=== PATIENT | female | born 1945 | race African-American/Black ===

== ENCOUNTER 2023-11-23 19:57 | Inpatient (IN) | payer MEDICARE, SELFPAY ==
[2023-11-20] VITALS (11 sets, daily range): BP systolic 127–154; BP diastolic 62–96; BMI 25.4
--- NOTE | 2023-11-20 07:30 | ED.GENMED ---
History of Present Illness
<ANNALISA Babb Jr. Last Filed: 11/20/23 12:25>
General
Chief Complaint: Blood Sugar Problem
Source: patient and family
Exam Limitations: none
Time Seen by Provider: 11/20/23 07:04
Nursing documentation reviewed up to this point in time: agreed with
History of Present Illness
History of Present Illness:
78-year-old female with past medical history of heart disease, 7 stents, CHF hypertension diabetes presenting to the emergency department today with concerns of generalized weakness fatigue worsening over the past few days. Recently was admitted to
[facility] diagnosed with heart failure and was intubated at the time in the ICU. Was discharged 4 days ago. She denies any specific chest pain palpitations nausea vomiting or fevers.
Review of Systems
<Judson Segovia Jr., PA-C - Last Filed: 11/20/23 12:25>
Review of Systems
Allergies reviewed?: Yes
All Other Systems: ROS reviewed and negative except as documented in HPI and ROS
Phy Exam
<ANNALISA Babb Jr. Last Filed: 11/20/23 12:25>
Physical Exam
Physical Exam:
GENERAL: Alert , in no apparent distress
EYE: pupils equal and reactive
NECK: Supple, no significant adenopathy.
ENT: o/p clr, mmm.
CARDIAC: Regular rate and rhythm .
LUNGS: Clear breath sounds bilaterally, no acute respiratory distress, no wheezes/rales/rhonchi
ABDOMEN: Soft, without focal tenderness, no r/g, no cvat
NEUROLOGICAL: Alert and oriented, no focal neuro deficits
SKIN: Warm and dry, skin intact.
MUSCULOSKELETAL: No edema, well perfused.
PSYCH: Normal and appropriate interaction.
Course
<ANNALISA Babb Jr. Last Filed: 11/20/23 12:25>
Orders/Labs/Results
Orders:
Orders
11/20/23 07:17
Chest [CR Chest - 2 Views ] Urgent
Comment:
Reason For Exam: weakness recent pericardial effusion
11/20/23 07:18
Urinalysis Reflex To Culture Urgent
11/20/23 07:36
B-Hydroxybutyrate Urgent
CMP [Comprehensive Metabolic Panel] Urgent
Complete Blood Count/With Diff Urgent
Magnesium Urgent
Pro-BNP [NT-proBNP] Urgent
TSH Reflex To Free T4 Urgent
Troponin I Urgent
Venous Blood Gas Urgent
%Oxygen/Room Air: 99
11/20/23 08:41
EKG [Electrocardiogram (*1)] Urgent
Reason for Study: Fatigue / Weakness
EKG- Treatment ONCE
11/20/23 10:05
Cefepime HCl [Maxipime] 2,000 mg IV NOW STA
11/20/23 10:09
Vancomycin [Vancocin] 1,500 mg 0.9% Sodium Chloride [Nss] 20 ml 0.9% Sodium Chloride 250 ml [Nss] 250 ml IV NOW
11/20/23 10:52
Obtain Records As Directed
Dates of Information to be Released: recent admission to [facility]
Type of Information Requested: Entire Record
11/20/23 12:09
Admit/Transfer Patient As Directed
Co-Sign Provider:
Level of Care: Observation services
Assign to:: Telemetry
Physician / Group: Hospitalist
Diagnosis: Weakness
Reason for Telemetry: Arrhythmia
Date to Stop Telemetry: 11/23/23
Time to Stop Telemetry: 11:00
PRN Pain Medication Management As Directed
May give lesser potent ordered pain med per pt: No
preference::
Protocol:: Medication orders for pain may NOT be administered in
a manner that defers to patient preference. Follow
all order instructions as written.
Contact provider if ordering parameters for pain need
to be adjusted.
11/20/23 12:10
Code Status As Directed
Resuscitation Status: Full Code
11/23/23 11:00
DC Protocol for Telemetry ONCE
Abnormal Lab Results
11/20/23
07:36
RBC 3.48 L 10^6/uL
(4.20-5.40)
Hgb 9.5 L g/dL
(12.0-16.0)
Hct 28.2 L %
(37.0-47.0)
RDW 14.7 H %
(11.5-14.5)
VBG pH 7.46 H
(7.32-7.43)
VBG pO2 160 H mmHg
(30-50)
Potassium 5.2 H mmol/L
(3.5-5.1)
BUN 75 H mg/dl
(7-17)
Creatinine 2.9 H mg/dL
(0.6-1.0)
Glucose 134 H mg/dl
(70-99)
AST 46 H U/L
(14-36)
ALT 43 H U/L
(0-35)
Troponin I 0.087 H* ng/ml
11/20/23 07:36
11/20/23 07:36
Vital Signs
Initial and Last Documented VS:
Initial Vital Signs
Temp Pulse Resp BP Pulse Ox
98.3 F 69 16 136/73 97
11/20/23 06:21 11/20/23 06:21 11/20/23 06:21 11/20/23 06:21 11/20/23 06:21
Last Documented Vital Signs
Temp Pulse Resp BP Pulse Ox
98.3 F 64 20 146/68 98
11/20/23 06:21 11/20/23 12:00 11/20/23 12:00 11/20/23 12:00 11/20/23 12:00
<Saadia Dillard MD - Last Filed: 11/20/23 09:51>
Orders/Labs/Results
Orders:
Orders
11/20/23 07:17
Chest [CR Chest - 2 Views ] Urgent
Comment:
Reason For Exam: weakness recent pericardial effusion
11/20/23 07:18
Urinalysis Reflex To Culture Urgent
11/20/23 07:36
B-Hydroxybutyrate Urgent
CMP [Comprehensive Metabolic Panel] Urgent
Complete Blood Count/With Diff Urgent
Magnesium Urgent
Pro-BNP [NT-proBNP] Urgent
TSH Reflex To Free T4 Urgent
Troponin I Urgent
Venous Blood Gas Urgent
%Oxygen/Room Air: 99
11/20/23 08:41
EKG [Electrocardiogram (*1)] Urgent
Reason for Study: Fatigue / Weakness
EKG- Treatment ONCE
11/20/23 10:05
Cefepime HCl [Maxipime] 2,000 mg IV NOW STA
11/20/23 10:09
Vancomycin [Vancocin] 1,500 mg 0.9% Sodium Chloride [Nss] 20 ml 0.9% Sodium Chloride 250 ml [Nss] 250 ml IV NOW
11/20/23 10:52
Obtain Records As Directed
Dates of Information to be Released: recent admission to [facility]
Type of Information Requested: Entire Record
11/20/23 12:09
Admit/Transfer Patient As Directed
Co-Sign Provider:
Level of Care: Observation services
Assign to:: Telemetry
Physician / Group: Hospitalist
Diagnosis: Weakness
Reason for Telemetry: Arrhythmia
Date to Stop Telemetry: 11/23/23
Time to Stop Telemetry: 11:00
PRN Pain Medication Management As Directed
May give lesser potent ordered pain med per pt: No
preference::
Protocol:: Medication orders for pain may NOT be administered in
a manner that defers to patient preference. Follow
all order instructions as written.
Contact provider if ordering parameters for pain need
to be adjusted.
11/20/23 12:10
Code Status As Directed
Resuscitation Status: Full Code
11/23/23 11:00
DC Protocol for Telemetry ONCE
Abnormal Lab Results
11/20/23
07:36
RBC 3.48 L 10^6/uL
(4.20-5.40)
Hgb 9.5 L g/dL
(12.0-16.0)
Hct 28.2 L %
(37.0-47.0)
RDW 14.7 H %
(11.5-14.5)
VBG pH 7.46 H
(7.32-7.43)
VBG pO2 160 H mmHg
(30-50)
Potassium 5.2 H mmol/L
(3.5-5.1)
BUN 75 H mg/dl
(7-17)
Creatinine 2.9 H mg/dL
(0.6-1.0)
Glucose 134 H mg/dl
(70-99)
AST 46 H U/L
(14-36)
ALT 43 H U/L
(0-35)
Troponin I 0.087 H* ng/ml
11/20/23 07:36
11/20/23 07:36
Vital Signs
Initial and Last Documented VS:
Initial Vital Signs
Temp Pulse Resp BP Pulse Ox
98.3 F 69 16 136/73 97
11/20/23 06:21 11/20/23 06:21 11/20/23 06:21 11/20/23 06:21 11/20/23 06:21
Last Documented Vital Signs
Temp Pulse Resp BP Pulse Ox
98.3 F 64 20 146/68 98
11/20/23 06:21 11/20/23 12:00 11/20/23 12:00 11/20/23 12:00 11/20/23 12:00
<Judson Segovia Jr., PA-C - Last Filed: 11/20/23 12:25>
MDM/Problems Addressed
MDM/Problems Addressed:
78-year-old female presenting to the emergency department with concerns of generalized weakness fatigue over the past few days. Recently discharged [facility] where she was previously in the ICU for heart failure exacerbation had improving
symptoms throughout the hospital stay and discharged 4 days ago. Upon arrival here vital signs are normal patient in no obvious distress labs show elevated creatinine level of 2.9 and BUN of 75 potassium of 5.2 normal glucose mild elevation of
troponin and BNP. Chest x-ray showing potential pulmonary edema to the right lower lobe potentially consistent with pneumonia. [facility] is able to be contacted we spoke with one of the ER providers they claim that her baseline creatinine
levels were in the mid ones typically. She did have an elevated troponin during her stay and it was trending down prior to discharge. They did treat her for possible pneumonia while there but took her off the antibiotics prior to discharge.
Patient's creatinine was reported to be in the mid ones at arrival to [facility] here the creatinine is 2.9 concerning for KELLIE as well as the elevated BUN of 75. Additionally the patient's troponin level here is mildly elevated to 0.087 the
level was elevated throughout hospital stay at [facility] as well. Chest x-ray here showing possible pneumonia to the right lung considering she was recently on a ventilator we will start her on IV antibiotics covering for this possibility. Plan to
admit for further treatment and monitoring.
<Judson Segovia Jr., PA-C - Last Filed: 11/20/23 12:25>
*Critical Care Note
Total Time (30-74mins, 75-104mins- exclusive of procedures): Not Applicable
ED Attending Note
<Judson Segovia Jr., PA-C - Last Filed: 11/20/23 12:25>
-
Portions of this chart may have been created with voice recognition software.� Occasional wrong word or��sound alike� substitutions may have occurred due to the inherent limitations of voice recognition software.
<Saadia Dillard MD - Last Filed: 11/20/23 09:51>
ED Attending Note
Patient seen and examined by attending physician: Yes
I performed the substantive portion of visit, reviewed & personally made and approve the management plan that is documented in note by myself or CIERRA.: Yes
ED Attending Note:
Patient appears well and comfortable. She has no complaints of physical pain. Patient just complains of severe fatigue. Patient's labs suggest acute on chronic renal failure. Chest x-rays suggest possible pneumonia, however, patient denies any
current fever or active cough.
Discharge Plan
Departure
Patient Disposition: Admit
Date of Disposition: 11/20/23
Time of Disposition: 10:11
Admit to: Telemetry
Admit to doctor: Maryan
Presentation/result/management discussed w/ accepting MD/DO: Hospitalist
Patient with high blood pressure during this ER visit?: No
Condition: Good
Covid-19: Not Applicable
Discharge Problem:
Pneumonia, KELLIE (acute kidney injury)
Prescriptions:
No Action
nifedipine 30 mg Tablet Extended Release 24hr
30 mg PO HS
carvedilol 12.5 mg Tablet
12.5 mg PO BID
clopidogrel 75 mg Tablet
75 mg PO DAILY
aspirin 81 mg Tablet,Delayed Release (Dr/Ec)
81 mg PO DAILY
acetaminophen [Tylenol Extra Strength] 500 mg Tablet
1,000 mg PO Q6HPRN PRN (Reason: mild pain)
isosorbide mononitrate 60 mg Tablet Extended Release 24 Hr
60 mg PO DAILY
lisinopril 40 mg Tablet
40 mg PO DAILY
metformin 500 mg Tablet Extended Release 24 Hr
1,000 mg PO .SEE BELOW
Patient Comments:
11/20/23: patient had metformin discontinued at their last hospital visit. Family gave patient metformin yesterday(11/19/23) around 1700 and 2300 due to blood sugar levels
rosuvastatin 10 mg Tablet
10 mg PO DAILY
ranolazine 500 mg Tablet Extended Release 12 Hr
1,000 mg PO BID
Referrals:
Anne Marie Choi DO [Family Provider] -
Interventions
Interventions:
*Risk Screen - Suicide Last Done: 11/20/23 06:21
*General Assessment Last Done: 11/20/23 07:44
*Neglect/Abuse Screening Last Done: 11/20/23 06:21
ED- Fall Risk Assessment Last Done: 11/20/23 07:41
*ED COVID-19 Vaccine History Last Done: 11/20/23 07:44
ED- Neurological Assessment Last Done: 11/20/23 07:41
Discharge Date and Time
Print Language: WOLOF
[2023-11-20 07:52] LABS: Venous Blood Gas B.E. 2.4 mmol/L (-4 to +4); Venous Blood Gas HCO3 26.3 mmol/L (22-27); Venous Blood Gas O2 Sat % 99.7 %; Venous Blood Gas pCO2 37 mmHg (35-48); Venous Blood Gas pH 7.46 (7.32-7.43); Venous Blood Gas pO2 160 mmHg (30-50)
[2023-11-20 07:54] LABS: Venous Blood Gas O2 Therapy 99
[2023-11-20 08:00] LABS: % Basophils 0.8 % (0-2); % Eosinophils 4.2 % (0-6); % Immature Granulocytes 0.4 % (0-0.5); % Lymphocytes 31.1 % (20.5-51.1); % Monocytes 6.6 % (1.7-9.3); % Neutrophils 56.9 % (42.2-75.2); Absolute Basophils 0.1 10^3/uL (0-0.2); Absolute Eosinophils 0.4 10^3/uL (0-0.7); Absolute Lymphocytes 2.8 10^3/uL (1.2-3.4); Absolute Monocytes 0.6 10^3/uL (0.1-0.6); Absolute Neutrophils 5.2 10^3/uL (1.4-6.5); Hematocrit 28.2 % (37.0-47.0); Hemoglobin 9.5 g/dL (12.0-16.0); Mean Corp Hgb Conc. 33.7 g/dL (33.0-37.0); Mean Corpuscular Hgb 27.3 pg (27.0-31.0); Mean Platelet Volume 9.6 fL (7.4-10.4); Nucleated Red Blood Cells % 0 %; Platelet Count 325 10^3/uL (130-400); Red Blood Cell Count 3.48 10^6/uL (4.20-5.40); Red Cell Dist. Width 14.7 % (11.5-14.5); White Blood Cell Count 9.1 10^3/uL (4.8-10.8)
[2023-11-20 08:08] LABS: ALT (SGPT) 43 U/L (0-35); AST (SGOT) 46 U/L (14-36); Albumin 4.3 g/dl (3.5-5.0); Alkaline Phosphatase 54 U/L (38-126); Blood Urea Nitrogen 75 mg/dl (7-17); Calcium 9.6 mg/dl (8.4-10.2); Carbon Dioxide 25 mmol/L (22-30); Chloride 101 mmol/L (98-107); Glucose 134 mg/dl (70-99); Magnesium 2.1 mg/dl (1.6-2.3); Potassium 5.2 mmol/L (3.5-5.1); Sodium 137 mmol/L (135-145); Total Bilirubin 0.6 mg/dl (0.2-1.3); Total Protein 7.3 g/dl (6.3-8.2); eGFR 16.17
[2023-11-20 08:14] LABS: B-Hydroxybutyrate 0.19 mmol/L (0.02-0.27)
[2023-11-20 08:16] LABS: NT-proBNP 1140 pg/ml; Troponin I 0.087 ng/ml
[2023-11-20] MEDS: MAXIPIME 2000 MG IV (10:19)
[2023-11-20] MEDS: VANCOCIN 300 MG IV (10:22)
[2023-11-20] MEDS: VANCOCIN 300 ML IV (10:22)
--- NOTE | 2023-11-20 12:20 | HPS.HSE ---
Family Physician
-
Family Physician: Anne Marie Choi
Chief Complaint
-
weakness
History of Present Illness
78yo F with PMHx of HtN, DM, HLD, tacotsubo CM, recent admission with intubation to [facility] managed for HFpEF exacerbation, tacotsubo CM and pneumonia, discharged home but had gradually worsening weakness with her d/c. On admission found
with elevated Cr, troponin, without chest pain and no signs of ACS amd amenia, unclear if acute or chronic.
As per daughter bedside -inital plam for discharge was rehab, but then changed to home for unknown reason
ALso found blood sugars in 500th at home
Medical History
Past Medical History
Past Medical History: Reports Other
Additional Past Medical History:
See HPI
Past Surgical History: Reports None
Social History
Tobacco: Non-smoker
Personal: Single
Family History
Family History: Not pertinent
Allergies / Home Medications
Allergies reflects when Allergies were last updated in [employer].
Home Medications with original date entered in [employer]
Allergy/Medication List:
Allergies
Allergy/AdvReac Type Severity Reaction Status Date / Time
No Known Allergies Allergy Unverified 11/20/23 06:21
Home Medications
acetaminophen 500 mg tablet (Tylenol Extra Strength) 1,000 mg PO Q6HPRN PRN mild pain 11/20/23
aspirin 81 mg tablet,delayed release 81 mg PO DAILY Blood Clot Prevention/Tx 11/20/23
carvedilol 12.5 mg tablet 12.5 mg PO BID Blood Pressure 11/20/23
clopidogrel 75 mg tablet 75 mg PO DAILY Blood Clot Prevention/Tx 11/20/23
isosorbide mononitrate 60 mg tablet,extended release 24 hr 60 mg PO DAILY Heart Disease/Condition 11/20/23
lisinopril 40 mg tablet 40 mg PO DAILY Blood Pressure 11/20/23
metformin 500 mg tablet,extended release 24 hr 1,000 mg PO .SEE BELOW Diabetes 11/20/23
nifedipine 30 mg tablet,extended release 24 hr 30 mg PO HS Blood Pressure 11/20/23
ranolazine 500 mg tablet,extended release,12 hr 1,000 mg PO BID Heart Disease/Condition 11/20/23
rosuvastatin 10 mg tablet 10 mg PO DAILY High Cholesterol 11/20/23
Review of Systems
-
History Source: Patient and Family
A 12 point ROS was completed and negative except as noted: Yes
Physical Exam
Vital Signs
Vital Signs
Temp Pulse Resp BP Pulse Ox
98.3 F 64 20 146/68 98
11/20/23 06:21 11/20/23 12:00 11/20/23 12:00 11/20/23 12:00 11/20/23 12:00
Physical Exam
General: No Apparent Distress
HEENT: NormoCephalic and Anicteric
Respiratory: Clear; No Wheezes, Rales or Rhonchi
Cardiac: S1/S2
GI: Soft and Non Tender
Musculoskeletal: No Clubbing, No Cyanosis and No Edema
Skin: Warm; No Rash
Neuro: Awake, Alert, Oriented and AO x 3
Psych: Calm
Laboratory Results
-
11/20/23 07:36
11/20/23 07:36
Laboratory Results
Total Bilirubin 0.6 mg/dl (0.2-1.3) 11/20/23 07:36
AST 46 U/L (14-36) H 11/20/23 07:36
ALT 43 U/L (0-35) H 11/20/23 07:36
Alkaline Phosphatase 54 U/L (38-126) 11/20/23 07:36
Troponin I 0.087 ng/ml H* 11/20/23 07:36
Impression/Plan
-
A/P:
#Worsening weakness, most likely deconditioning 2/2 recent hospitalization
PT/OT eval
check TSH, cortisol AM
CHeck UA
#Concern for RLL pnumonia on XR
- with normal WBC, no fever and no respiratory symptoms most likely resolution of previous CAP
Follow off Abx clinically
#Chronic HFpEF
#Tacotsubo CM
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
#Essential HTN
Follow Tropponin
Echo
Cardiology
COnt home meds
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
Check urine study
Check kidney US
If worsening - scheduler
Insulin SS, DM diet
#Anemia
Anemia w/u
follow CBC
#Transaminitis
hepatitis profile
follow LFT
DVT ppx hep
FUll code
I have spent at least 75min preparing admission, reviewing previous records, communicationg with family and direct patient care
--- NOTE | 2023-11-20 12:50 | CON.CAR ---
Addendum entered and electronically signed by Jose Crump MD 11/20/23 15:03:
I saw and examined the patient.
The MICROECONOMICS PROFESSOR's note was reviewed and I agree with the note.
Comment: 78 year old female (known to Dr. Iverson, her primary parking enforcer), with HFmrEF, CAD, HTN, HLD, CKD, NIDDM, and recent admission to [facility] presents with weakness. She does not have CP, SOB, or other cardiac contribution at this
point. Her troponin is likely nonischemic myocardial injury.
- Nonischemic myocardial injury
- Follow up outpatient with parking enforcer
We will sign off, please call with questions/concerns.
Original Note:
Consultation
Consultation Request
Date/Time Consultation Requested: 11/20/2023 12:30
Date/Time Consultation Performed: 11/20/2023 12:50
Requesting Provider: Dr. Rondon
Performing Provider: LULU Toussaint for Dr. Crump
Reason for Consultation: Abnormal troponin
Medical History
-
Chief Complaint: Weakness
History of Present Illness:
Evelyn Baxter is a 78 year old female (known to Dr. Iverson, her primary parking enforcer), with HFmrEF, CAD, HTN, HLD, CKD, NIDDM, and recent admission to [facility] presents with weakness. She was recently discharged with acute pulmonary edema
requiring intubation, Takotsubo Cardiomyopathy, possible PNA, and KELLIE. Her HCTZ and metformin were on hold due to rising creatinine. She has been weak since discharge and her daughter brought her in for evaluation. She also has been having
hyperglycemia with blood glucose > 350 at home. I reviewed the discharge summary on the patients phone. Cardiology was consulted for abnormal troponin.
Past Medical History
Past Medical History: CAD, CHF, HTN, Hypercholesterolemia, NIDDM and Renal Failure (CKD)
Social History
Tobacco: Non-Smoker
Alcohol: None
Drug: None
Living: With Family
Employment: Retired
Family History
Family History: Reviewed & Not Pertinent
Allergies / Home Medications
Allergy/AdvReac Type Severity Reaction Status Date / Time
No Known Allergies Allergy Unverified 11/20/23 06:21
�Medication �Instructions �Recorded �Confirmed �Type
acetaminophen 500 mg tablet 1,000 mg PO Q6HPRN PRN mild pain 11/20/23 11/20/23 History
(Tylenol Extra Strength)
aspirin 81 mg tablet,delayed 81 mg PO DAILY Blood Clot 11/20/23 11/20/23 History
release Prevention/Tx
carvedilol 12.5 mg tablet 12.5 mg PO BID Blood Pressure 11/20/23 11/20/23 History
clopidogrel 75 mg tablet 75 mg PO DAILY Blood Clot 11/20/23 11/20/23 History
Prevention/Tx
isosorbide mononitrate 60 mg 60 mg PO DAILY Heart 11/20/23 11/20/23 History
tablet,extended release 24 hr Disease/Condition
lisinopril 40 mg tablet 40 mg PO DAILY Blood Pressure 11/20/23 11/20/23 History
metformin 500 mg tablet,extended 1,000 mg PO .SEE BELOW Diabetes 11/20/23 11/20/23 History
release 24 hr
nifedipine 30 mg tablet,extended 30 mg PO HS Blood Pressure 11/20/23 11/20/23 History
release 24 hr
ranolazine 500 mg tablet,extended 1,000 mg PO BID Heart 11/20/23 11/20/23 History
release,12 hr Disease/Condition
rosuvastatin 10 mg tablet 10 mg PO DAILY High Cholesterol 11/20/23 11/20/23 History
Review of Systems
-
History Source: Patient
All other systems: Negative unless noted
Constitutional: Fatigue
EENT: No Symptoms
Respiratory: No Symptoms
Cardiac: No Symptoms
: No Symptoms
Musculoskeletal: No Symptoms
Skin: No Symptoms
Neurological: Weakness
Endocrine: No Symptoms
Hematologic/Lymphatic: No Symptoms
Physical Exam
Vital Signs
Temp Pulse Resp BP Pulse Ox
98.3 F 64 20 146/68 98
11/20/23 06:21 11/20/23 12:00 11/20/23 12:00 11/20/23 12:00 11/20/23 12:00
Lab Results
11/20/23 07:36
11/20/23 07:36
Troponin I 0.087 ng/ml H* 11/20/23 07:36
Tiu-B-Dcvationjnu Pept 1140 pg/ml 11/20/23 07:36
Physical Exam
General: Well Developed, Well Nourished, No Apparent Distress and Comfortable
HEENT: Normocephalic, Anicteric and Moist Mucous Membranes
Respiratory: Clear and Non Labored Respirations
Cardiac: S1/S2 and Regular Rhythm
Breast: Deferred by me
GI: Soft, Non Tender and Normal Bowel Sounds
Rectal: Deferred by Provider
Genito-urinary: No Costovertebral Tender
Musculoskeletal: No Clubbing, No Cyanosis and No Edema
Skin: Warm and Dry
Neuro: AO x 3
Hematologic/Lymphatic: No Lymphadenopathy
Psych: Calm
Impression / Plan
-
BACKGROUND: 78F with heart failure, CAD, NIDDM, HTN, HLD, and CKD with recent hospitalization requiring intubation and diagnosis of Takotsubo CM presents with weakness. She was found to have an KELLIE and an abnormal troponin.
Abnormal troponin, non-ischemic myocardial injury in the setting of KELLIE and acute illness (Takotsubo)
-Peak on admission (0.087), now trending down
-EKG with LBBB
-Denies CP
HFmrEF, reports recent Takotsubo diagnosis
-Prior EF 40-45%, appears unchanged (now 40+/- 5%) and she was diagnosed with Takotsubo CM
-Denies shortness of breath
-No ischemic evaluation performed at prior facility, planned for outpatient viability study
-She was not discharged on a diuretic due to climbing creatinine
KELLIE on CKD
-Creatinine 2.1 at discharge
-Creatinine may climb, S/P Vancomycin in ER
-Hold Lisinopril
-Consider Nephrology consultation
Weakness, in the setting of deconditioning with recent hospitalization and possibly LLL PNA (resolving CAP?)
CAD
-Stable without CP
-On DAPT (clopidogrel & ASA)
-PCI to RCA, LAD, and Circ
HTN
-She had HTN Urgency at prior hospitalization, which was believed to prompt pulmonary edema
-Medical therapy limited with KELLIE
Type II DM, hyperglycemia at home, metformin on hold in the setting of KELLIE
Anemia, likely of chronic disease, denies abnormal bleeding
LBBB, chronic per prior cardiology notes
Data Reviewed
-
EKG: Report Reviewed by me (Sinus rhythm with sinus arrhythmia, LBBB, rate 60)
Radiology: Report Reviewed by me (CXR: Right lower lung asymmetric pulmonary edema versus developing pneumonia. The heart is enlarged which may be due to AP technique. If there is concern for underlying pericardial effusion, echocardiography should
be performed.)
Labs: Labs Reviewed by me
Old Records: Reviewed
[2023-11-20 13:50] LABS: Troponin I 0.067 ng/ml
[2023-11-20 14:27] LABS: Troponin I 0.066 ng/ml
--- NOTE | 2023-11-20 15:00 | PTCARENOTE ---
Pt recieved from ED. AAOx3. VSS. Oriented to unit.
[2023-11-20 15:01] LABS: Urine Albumin Trace (Neg - Trace); Urine Bilirubin Negative (Negative); Urine Character Clear (Clear); Urine Color Yellow; Urine Glucose Negative (Negative); Urine Ketone Negative (Negative); Urine Leukocyte Trace (Negative); Urine Nitrite Negative (Negative); Urine Occult Blood Negative (Negative); Urine Urobilinogen Negative (Neg - 1+)
[2023-11-20 15:17] LABS: Urine Bacteria Few (Negative); Urine Red Blood Cell 0-2 /HPF (0-2); Urine Squamous Cell >30 /LPF (Few); Urine White Cell 0-2 /HPF (0-5)
[2023-11-20 15:20] LABS: Osmolality Urine 392 mOsm/kg (300-900)
[2023-11-20 15:31] LABS: Urine Sodium 54 mmol/L (30-90)
[2023-11-20 16:05] LABS: Glucose - Point of Care 143 mg/dl (70-99)
[2023-11-20] MEDS: NOVOLOG FLEXPEN-LOW RESISTANCE SC (16:30)
[2023-11-20] MEDS: HEPARIN 5000 UNITS SC ×2 (17:59→23:39)
[2023-11-20] MEDS: RANEXA EXTENDED RELEASE 1000 MG PO (20:06)
[2023-11-20] MEDS: COREG 12.5 MG PO (20:06)
[2023-11-20 21:22] LABS: Glucose - Point of Care 160 mg/dl (70-99)
[2023-11-20] MEDS: APRESOLINE 10 MG PO (23:36)
[2023-11-20] MEDS: PROCARDIA XL (EXTENDED RELEASE) 60 MG PO (23:37)
[2023-11-21 03:12] VITALS: BP 108/58
[2023-11-21 06:00] VITALS: BMI 25.7
[2023-11-21 07:01] VITALS: BP 111/60
[2023-11-21 07:13] LABS: % Basophils 0.6 % (0-2); % Eosinophils 3.9 % (0-6); % Immature Granulocytes 0.5 % (0-0.5); % Lymphocytes 28.5 % (20.5-51.1); % Monocytes 5.7 % (1.7-9.3); % Neutrophils 60.8 % (42.2-75.2); Absolute Basophils 0.1 10^3/uL (0-0.2); Absolute Eosinophils 0.3 10^3/uL (0-0.7); Absolute Lymphocytes 2.2 10^3/uL (1.2-3.4); Absolute Monocytes 0.4 10^3/uL (0.1-0.6); Absolute Neutrophils 4.7 10^3/uL (1.4-6.5); Hematocrit 26.5 % (37.0-47.0); Hemoglobin 8.8 g/dL (12.0-16.0); Mean Corp Hgb Conc. 33.2 g/dL (33.0-37.0); Mean Corpuscular Hgb 27.9 pg (27.0-31.0); Mean Corpuscular Volume 84.1 fL (81.0-99.0); Mean Platelet Volume 9.2 fL (7.4-10.4); Nucleated Red Blood Cells % 0 %; Platelet Count 313 10^3/uL (130-400); Red Blood Cell Count 3.15 10^6/uL (4.20-5.40); Red Cell Dist. Width 14.6 % (11.5-14.5); Reticulocyte Count 1.6 % (0.4-2.8); White Blood Cell Count 7.8 10^3/uL (4.8-10.8)
[2023-11-21 07:40] LABS: ALT (SGPT) 32 U/L (0-35); AST (SGOT) 28 U/L (14-36); Albumin 3.6 g/dl (3.5-5.0); Alkaline Phosphatase 49 U/L (38-126); Blood Urea Nitrogen 82 mg/dl (7-17); Carbon Dioxide 24 mmol/L (22-30); Chloride 103 mmol/L (98-107); Estimated Creatinine Clearance 12 ml/min; Glucose 148 mg/dl (70-99); Iron 88 ug/dl (37-170); Magnesium 1.9 mg/dl (1.6-2.3); Potassium 5.5 mmol/L (3.5-5.1); Sodium 138 mmol/L (135-145); Total Bilirubin 0.4 mg/dl (0.2-1.3); Total Protein 6.3 g/dl (6.3-8.2); eGFR 15.53
[2023-11-21 07:49] LABS: Percent Saturation 29 % (20-50); Total Iron Binding Capacity 295 ug/dl (265-497)
[2023-11-21 07:51] LABS: Troponin I 0.065 ng/ml
[2023-11-21 08:04] LABS: Cortisol, Random 16.8 ug/dl; TSH Reflex To Free T4 2.61 uIU/ml (0.47-4.68)
[2023-11-21 08:08] LABS: Hepatitis B Surface Antigen Negative (Negative)
[2023-11-21 08:26] LABS: Hepatitis B Core Ab, Total Negative (Negative); Hepatitis B Surface Antibody Negative; Hepatitis C Antibody Negative (Negative)
[2023-11-21 08:40] LABS: Folate 7.5 ng/ml (2.76-20); Vitamin B12 777 pg/ml (239-931)
[2023-11-21 08:57] LABS: Glycohemoglobin (HgbA1c) 6.9 % (4.0-5.6)
[2023-11-21 09:06] LABS: Glucose - Point of Care 164 mg/dl (70-99)
[2023-11-21] MEDS: RANEXA EXTENDED RELEASE 1000 MG PO ×2 (10:07→19:56)
[2023-11-21] MEDS: HEPARIN 5000 UNITS SC ×2 (10:07→16:59)
[2023-11-21] MEDS: APRESOLINE 10 MG PO (10:08)
[2023-11-21] MEDS: PLAVIX 75 MG PO (10:08)
[2023-11-21] MEDS: COREG 12.5 MG PO ×2 (10:08→19:56)
[2023-11-21] MEDS: IMDUR (EXTENDED RELEASE) 60 MG PO (10:08)
[2023-11-21] MEDS: CRESTOR 10 MG PO (10:08)
[2023-11-21] MEDS: ASPIR LOW (ENTERIC COATED) 81 MG PO (10:08)
[2023-11-21] MEDS: NOVOLOG FLEXPEN-LOW RESISTANCE 1 UNITS SC (10:16)
--- NOTE | 2023-11-21 11:00 | PTCARENOTE ---
Daughter at bedside stating the patient seems more 'off' today. Patient appears drowsy but easily arousable. AAOx3. Dr Rondon notified who is at bedside evaluating the patient.
[2023-11-21 11:33] VITALS: BP 114/54
--- NOTE | 2023-11-21 11:48 | W.PN.HOSP.TC ---
Addendum entered and electronically signed by Carrillo Banerjee MD 11/21/23 15:10:
#Mild hyperkalemia
Hydrate
ARB stopped
follow level
Original Note:
Today's Communication/Plan
-
Start Abx empirically
Enema
follow labs
IVF
Nephrology
Assessment / Plan
Assessment / Plan
78yo F with PMHx of HtN, DM, HLD, tacotsubo CM, recent admission with intubation to [facility] managed for HFpEF exacerbation, tacotsubo CM and pneumonia, discharged home but had gradually worsening weakness. Admitted with malaise and
worsening KELLIE, found constipation with fecal impaction
A/P:
#Worsening weakness, most likely deconditioning 2/2 recent hospitalization
PT/OT eval
TSH, cortisol AM WNL
No signs of UTI on UA
Head CT without significant acute findings
#Concern for RLL pnumonia on XR
Unclear if new finsings
Bcx neg to date
start empiric Rocephin/DOxy
#Fecal impaction
Enema
if not resolving - might need GI
#KELLIE
as per review of previous records -Cr jumped up from 1.8-19 to 2.5 and then 3.0
IVF trial
FeNa 2.6
US renal without signs of hydronephrosis
Nephrology cosnult
IVF
follow Cr
#Chronic HFmrEF
#Tacotsubo CM
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
#Essential HTN
Echo showed EF 35-40% with global hypokinesis
Cardiology
COnt home meds
Adjust BP meds
#DM type 2 with unspecified complications
Insulin SS, DM diet
#Anemia
Anemia w/u
follow CBC
#Transaminitis
resolved
#$cm L renal simple cyst
#Umbilical hernia
#DJD
follow with PCP upon d/c
DVT ppx hep
FUll code
I have spent at least 56min reviewing chart, test results, communication with consultants and family and direct patient care
Anticipated Discharge: > 48 hours
Subjective/Interval History
-
Date of Service: November 21, 2023
Objective Data
-
Labs:
Laboratory Results
11/21/23 11/21/23
06:58 21:00
WBC 7.8
Hgb 8.8 L
Hct 26.5 L
Plt Count 313
Sodium 138 Pending
Potassium 5.5 H Pending
Chloride 103 Pending
Carbon Dioxide 24 Pending
BUN 82 H Pending
Creatinine 3.0 H Pending
Glucose 148 H Pending
Calcium 9.0 Pending
Total Bilirubin 0.4
AST 28
ALT 32
Alkaline Phosphatase 49
Vital Signs:
Vital Signs
Temp Pulse Resp BP Pulse Ox
97.9 F 65 18 114/54 96
11/21/23 11:33 11/21/23 11:33 11/21/23 11:33 11/21/23 11:33 11/21/23 11:33
I&O
11/20/23 11/21/23 11/22/23
06:59 06:59 06:59
Intake Total 720 / 720
Output Total 500 / 500
Balance 220 / 220
Physical Exam
-
HEENT: Normocephalic and Moist Mucous Membranes
Respiratory: Clear to Auscultation
GI: Soft, Nontender and Nondistended
Musculoskeletal: No Clubbing, No Cyanosis and No Edema
Neuro: Sedated
Psych: Calm
[2023-11-21] MEDS: NSS 1000 IV (11:54)
[2023-11-21 11:56] LABS: Glucose - Point of Care 234 mg/dl (70-99)
[2023-11-21 12:06] LABS: Venous Blood Gas B.E. 0.7 mmol/L (-4 to +4); Venous Blood Gas HCO3 25.4 mmol/L (22-27); Venous Blood Gas O2 Sat % 98.7 %; Venous Blood Gas pCO2 40 mmHg (35-48); Venous Blood Gas pH 7.41 (7.32-7.43); Venous Blood Gas pO2 85 mmHg (30-50)
[2023-11-21] MEDS: NOVOLOG FLEXPEN-LOW RESISTANCE 2 UNITS SC (13:49)
[2023-11-21] MEDS: FLEET PHOSPHATE ENEMA-ADULT 135 ML RECTAL (15:05)
--- NOTE | 2023-11-21 15:44 | W.CON.NEPH ---
Consultation
-
Date/Time Consultation Requested: 11/21/23 11:228AM
Date/Time Consultation Performed: 11/21/2023 3:44PM
Requesting Provider: Lavonne Vizcaino
Performing Provider: Olga Baird
Reason for Consultation: KELLIE
Medical History
-
Chief Complaint: KELLIE
History of Present Illness:
Ms. Baxter is a 78YOF with PMH of HTN, T2DM, DLD, Takotsubo cardiomyopathy, HFpEF who we are consulted for KELLIE.
Briefly, she had a recent admission to [facility] for ?CM vs. PNA. She was intubated while there. Her Cr on admission was around 1.5.
She was discharged home and then found to have weakness. She presented yesterday with KELLIE. Her HCTZ and metformin are on hold. She has also been having significant hyperglycemia at home.
Per prior records, Cr was 1.8-1.9 --> 2.9 -->3 today with mild hyperK.
Past Medical History
HTN, T2DM, DLD, Takotsubo cardiomyopathy, HFpEF
Past Medical History: Other
Past Surgical History: None
Social History
Tobacco: Non-Smoker
Alcohol: None
Drug: None
Living: With Family
Family History
Family History: Not Pertinent
Allergies / Home Medications
Allergy/AdvReac Type Severity Reaction Status Date / Time
No Known Allergies Allergy Unverified 11/20/23 06:21
�Medication �Instructions �Recorded �Confirmed �Type
acetaminophen 500 mg tablet 1,000 mg PO Q6HPRN PRN mild pain 11/20/23 11/20/23 History
(Tylenol Extra Strength)
aspirin 81 mg tablet,delayed 81 mg PO DAILY Blood Clot 11/20/23 11/20/23 History
release Prevention/Tx
carvedilol 12.5 mg tablet 12.5 mg PO BID Blood Pressure 11/20/23 11/20/23 History
clopidogrel 75 mg tablet 75 mg PO DAILY Blood Clot 11/20/23 11/20/23 History
Prevention/Tx
isosorbide mononitrate 60 mg 60 mg PO DAILY Heart 11/20/23 11/20/23 History
tablet,extended release 24 hr Disease/Condition
lisinopril 40 mg tablet 40 mg PO DAILY Blood Pressure 11/20/23 11/20/23 History
metformin 500 mg tablet,extended 1,000 mg PO .SEE BELOW Diabetes 11/20/23 11/20/23 History
release 24 hr
nifedipine 30 mg tablet,extended 30 mg PO HS Blood Pressure 11/20/23 11/20/23 History
release 24 hr
ranolazine 500 mg tablet,extended 1,000 mg PO BID Heart 11/20/23 11/20/23 History
release,12 hr Disease/Condition
rosuvastatin 10 mg tablet 10 mg PO DAILY High Cholesterol 11/20/23 11/20/23 History
Review of Systems
-
History Source: Patient and Family
All other systems: Negative unless noted
Physical Exam
Vital Signs
Vital Signs
Temp Pulse Resp BP Pulse Ox
97.9 F 65 18 114/54 96
11/21/23 11:33 11/21/23 11:33 11/21/23 11:33 11/21/23 11:33 11/21/23 11:33
Lab Results
WBC 7.8 10^3/uL (4.8-10.8) 11/21/23 06:58
RBC 3.15 10^6/uL (4.20-5.40) L 11/21/23 06:58
Hgb 8.8 g/dL (12.0-16.0) L 11/21/23 06:58
Hct 26.5 % (37.0-47.0) L 11/21/23 06:58
Plt Count 313 10^3/uL (130-400) 11/21/23 06:58
eGFR 15.53 07/23/24 06:58
Xtp-R-Gdarnldfhas Pept 1140 pg/ml 11/20/23 07:36
Albumin 3.6 g/dl (3.5-5.0) 11/21/23 06:58
Physical Exam
General: AOx3, No Distress and Nontoxic
HEENT: PERRL, EOMI, Anicteric, Conjunctivae Clear, Ear/Nose Intact, Hearing Normal, Oropharynx Clear/Moist, Dentition Intact, Facial Symmetry, Neck Supple, Trachea Midline and No Thyromegaly
Respiratory: Normal Excursion, Nonlabored Respirations and Other
Cardiac: S1/S2, Regular Rate/Rhythm and No Edema
Breast: Deferred by me
Abdomen: Soft, Nontender, Nondistended, No Hepatosplenomegaly and Other (hypoactive bowel sounds)
Rectal: Deferred by Provider
Genito-urinary: No Costovertebral Tender
Musculoskeletal: No Clubbing, No Cyanosis and No Edema
Skin: No Rash, Warm, Dry, No Clubbing, No Cyanosis, Normal Turgor and No Bruising
Neuro: Nonfocal/Grossly Intact
Hematologic/Lymphatic: No Cervical Lymphadenopathy
Psych: Mood/afflect pleasant and Insight/judgement good
Data Reviewed
-
CT Scan: Image Personally Visualized and interpreted (large stool burden. per report concern for possible fecal impaction. cyst on R kidney. CTH: No acute intracranial abnormalities. Findings compatible with diffuse cortical atrophy with nonspecific
white matter changes as described above.)
Ultrasound: Report Reviewed by me (simple cyst measuring 3.9 cm on R kidney)
Labs: Labs Reviewed by me
Old Records: Reviewed
Assessment/Plan
-
Assessment:
KELLIE on ?CKD
HyperK
Constipation
Weakness
C/f PNA
Plan:
- likely in the setting of significant constipation vs. ATN in the setting of recent infection vs. cardiorenal
- UA with minimal bacteria and WBCs, otherwise bland
- KUS benign
- hyperK noted, likely in the setting of constipation as well
- agree with gentle fluids
- if K >5.5 on repeat check, okay for one time dose lasix 40IV. would avoid lokelma/kayaxelate in the setting of HF and GI problems
- continue to trend labs
- monitor I/Os
--- NOTE | 2023-11-21 15:45 | PTCARENOTE ---
Fleets enema given as ordered with good results. Large formed BM noted mixed with urine. Unable to hemetest. Traces of blood noted around BM. Dr Banerjee made aware.
[2023-11-21 15:54] VITALS: BP 123/68
--- NOTE | 2023-11-21 16:14 | CM ---
Alert awake oriented patient who lives with her daughter who lives in a 1 story home with 0 steps to enter.She is independent in all activities of daily living.Offered VN she requested [facility] letter given explained and pt declined to
sign. Adv Directive form given.
[facility]
Never had VN/SNF
Pharmacy [facility]
PCP Dr Choi
PLAN Home with [facility] V[facility]
[2023-11-21 16:24] LABS: Blood Urea Nitrogen 82 mg/dl (7-17); Calcium 9.5 mg/dl (8.4-10.2); Carbon Dioxide 25 mmol/L (22-30); Chloride 103 mmol/L (98-107); Estimated Creatinine Clearance 12 ml/min; Glucose 110 mg/dl (70-99); Potassium 4.9 mmol/L (3.5-5.1); Sodium 139 mmol/L (135-145); eGFR 15.53
[2023-11-21] MEDS: VIBRAMYCIN 260 MG IV (16:59)
[2023-11-21] MEDS: STERILE WATER FOR INJECTION 10 ML IV (16:59)
[2023-11-21] MEDS: ROCEPHIN 1000 MG IV (16:59)
[2023-11-21 17:05] LABS: Glucose - Point of Care 119 mg/dl (70-99)
[2023-11-21] MEDS: NOVOLOG FLEXPEN-LOW RESISTANCE SC (17:32)
[2023-11-21] MEDS: TYLENOL 650 MG PO (19:19)
[2023-11-21 19:48] VITALS: BP 137/71
[2023-11-21] MEDS: PROCARDIA XL (EXTENDED RELEASE) 60 MG PO (19:57)
[2023-11-21 21:17] LABS: Glucose - Point of Care 192 mg/dl (70-99)
[2023-11-21 22:08] LABS: Blood Urea Nitrogen 82 mg/dl (7-17); Carbon Dioxide 23 mmol/L (22-30); Chloride 105 mmol/L (98-107); Estimated Creatinine Clearance 13 ml/min; Glucose 128 mg/dl (70-99); Potassium 4.9 mmol/L (3.5-5.1); Sodium 138 mmol/L (135-145); eGFR 16.87
[2023-11-21 23:36] VITALS: BP 106/58
[2023-11-22] VITALS (33 sets, daily range): BP systolic 118–178; BP diastolic 63–116; PULSE 64; O2SAT 98; BMI 25.6
[2023-11-22] MEDS: HEPARIN 5000 UNITS SC ×3 (00:24→15:25)
[2023-11-22] MEDS: VIBRAMYCIN 260 MG IV ×2 (04:38→15:24)
[2023-11-22] MEDS: NSS 1000 IV ×2 (06:05→17:28)
[2023-11-22 07:19] LABS: % Basophils 0.6 % (0-2); % Immature Granulocytes 0.3 % (0-0.5); % Lymphocytes 32.3 % (20.5-51.1); % Monocytes 5.4 % (1.7-9.3); % Neutrophils 56.4 % (42.2-75.2); Absolute Eosinophils 0.4 10^3/uL (0-0.7); Absolute Lymphocytes 2.3 10^3/uL (1.2-3.4); Absolute Monocytes 0.4 10^3/uL (0.1-0.6); Hematocrit 26.9 % (37.0-47.0); Mean Corp Hgb Conc. 33.5 g/dL (33.0-37.0); Mean Corpuscular Volume 83.5 fL (81.0-99.0); Mean Platelet Volume 9.4 fL (7.4-10.4); Nucleated Red Blood Cells % 0 %; Platelet Count 329 10^3/uL (130-400); Red Blood Cell Count 3.22 10^6/uL (4.20-5.40); Red Cell Dist. Width 14.6 % (11.5-14.5)
[2023-11-22 07:21] LABS: Glucose - Point of Care 146 mg/dl (70-99)
[2023-11-22] MEDS: NOVOLOG FLEXPEN-LOW RESISTANCE SC ×2 (07:33→16:41)
[2023-11-22 07:39] LABS: ALT (SGPT) 28 U/L (0-35); AST (SGOT) 26 U/L (14-36); Albumin 3.8 g/dl (3.5-5.0); Alkaline Phosphatase 53 U/L (38-126); Blood Urea Nitrogen 79 mg/dl (7-17); Calcium 9.3 mg/dl (8.4-10.2); Carbon Dioxide 21 mmol/L (22-30); Chloride 106 mmol/L (98-107); Estimated Creatinine Clearance 13 ml/min; Glucose 138 mg/dl (70-99); Potassium 4.8 mmol/L (3.5-5.1); Sodium 140 mmol/L (135-145); Total Bilirubin 0.5 mg/dl (0.2-1.3); Total Protein 6.8 g/dl (6.3-8.2); eGFR 16.87
[2023-11-22] MEDS: CRESTOR 10 MG PO (07:49)
[2023-11-22] MEDS: PLAVIX 75 MG PO (07:49)
[2023-11-22] MEDS: RANEXA EXTENDED RELEASE 1000 MG PO (07:50)
[2023-11-22] MEDS: ASPIR LOW (ENTERIC COATED) 81 MG PO (07:50)
[2023-11-22] MEDS: IMDUR (EXTENDED RELEASE) 60 MG PO (07:50)
[2023-11-22] MEDS: COREG 12.5 MG PO (07:50)
[2023-11-22] MEDS: TYLENOL 650 MG PO (09:37)
[2023-11-22] MEDS: SENOKOT-S 1 TABLET PO (11:08)
--- NOTE | 2023-11-22 11:14 | W.PN.NEPH.PH ---
Today's Communication / Plan
-
- bowel regimen
- gentle fluids
Assessment/Plan
-
Assessment:
KELLIE on ?CKD
HyperK
Constipation
Weakness
C/f PNA
Plan:
- likely in the setting of significant constipation vs. ATN in the setting of recent infection vs. cardiorenal
- UA with minimal bacteria and WBCs, otherwise bland
- KUS benign
- hyperK resolved
- agree with gentle fluids
- please keep up with bowel regimen
- continue to trend labs
- monitor I/Os
-
-
Date of Service: November 22, 2023
CC / HPI / ROS
-
Chief Complaint:
KELLIE
History of Present Illness:
weakness
RLL PNA
fecal impaction
Cr 1.5 --> peak of 3, down to 2.8 today
Review of Systems:
feeling better
sitting in chair
discussed with daughters
Labs
-
Labs:
WBC 7.0 10^3/uL (4.8-10.8) 11/22/23 06:50
RBC 3.22 10^6/uL (4.20-5.40) L 11/22/23 06:50
Hgb 9.0 g/dL (12.0-16.0) L 11/22/23 06:50
Hct 26.9 % (37.0-47.0) L 11/22/23 06:50
Plt Count 329 10^3/uL (130-400) 11/22/23 06:50
Sodium 140 mmol/L (135-145) 11/22/23 06:50
Potassium 4.8 mmol/L (3.5-5.1) 11/22/23 06:50
Chloride 106 mmol/L (98-107) 11/22/23 06:50
Carbon Dioxide 21 mmol/L (22-30) L 11/22/23 06:50
BUN 79 mg/dl (7-17) H 11/22/23 06:50
Creatinine 2.8 mg/dL (0.6-1.0) H 11/22/23 06:50
eGFR 16.87 11/22/23 06:50
Glucose 138 mg/dl (70-99) H 11/22/23 06:50
Calcium 9.3 mg/dl (8.4-10.2) 11/22/23 06:50
Mun-J-Fivfyugdjgs Pept 1140 pg/ml 11/20/23 07:36
Albumin 3.8 g/dl (3.5-5.0) 11/22/23 06:50
Physical Exam
-
Vital Signs:
Vital Signs
Temp Pulse Resp BP Pulse Ox
97.8 F 64 16 131/66 98
11/22/23 11:05 11/22/23 11:05 11/22/23 11:05 11/22/23 11:05 11/22/23 11:05
Cardiovascular:: Regular rate and rhythm
Respiratory:: Bilateral: Coarse
Lung Excursion:: Normal
Abdomen:: Distended, Nontender and Soft
Bowel Sounds:: None (hypoactive bowel sounds)
Extremity Edema:: None: Bilateral:
Jones Catheter: No
--- NOTE | 2023-11-22 11:40 | W.PN.HOSP.TC ---
Today's Communication/Plan
-
cont IVF for 1 more day
Patient more awake
Assessment / Plan
Assessment / Plan
78yo F with PMHx of HtN, DM, HLD, tacotsubo CM, recent admission with intubation to [facility] managed for HFpEF exacerbation, tacotsubo CM and pneumonia, discharged home but had gradually worsening weakness. Admitted with malaise and
worsening KELLIE, found constipation with fecal impaction
A/P:
#Worsening weakness, most likely deconditioning 2/2 recent hospitalization
PT/OT eval
TSH, cortisol AM WNL
No signs of UTI on UA
Head CT without significant acute findings
#L foot pain
suspect DJD
XR
#Concern for RLL pneumonia on XR
Unclear if new findings
Bcx neg to date
start empiric Rocephin/DOxy - plan for 5 days
#Fecal impaction
resolved with Enema
#KELLIE, multifactorial
as per review of previous records -Cr jumped up from 1.8-19 to 2.5 and then 3.0
IVF trial
FeNa 2.6
US renal without signs of hydronephrosis
Nephrology consult: cont mild hydration
IVF
follow Cr
#Chronic HFmrEF
#CAD s/p PCI
#Tacotsubo CM
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
#Essential HTN
Echo showed EF 35-40% with global hypokinesis
Cardiology: outpatient follow up. No signs of ACS, cont DAPT
COnt home meds
Adjust BP meds
#DM type 2 with unspecified complications
Insulin SS, DM diet
#Anemia, stable
no deficiency noted
No overt bleeding
follow CBC
Outpatient follow up
#Transaminitis
resolved
#2cm L renal simple cyst
#Umbilical hernia
#DJD
follow with PCP upon d/c
DVT ppx hep
FUll code
I have spent at least 36min reviewing chart, test results, communication with consultants and family and direct patient care
Anticipated Discharge: 24 - 48 hours
Subjective/Interval History
-
Date of Service: November 22, 2023
Objective Data
-
Labs:
Laboratory Results
11/22/23
06:50
WBC 7.0
Hgb 9.0 L
Hct 26.9 L
Plt Count 329
Sodium 140
Potassium 4.8
Chloride 106
Carbon Dioxide 21 L
BUN 79 H
Creatinine 2.8 H
Glucose 138 H
Calcium 9.3
Total Bilirubin 0.5
AST 26
ALT 28
Alkaline Phosphatase 53
Vital Signs:
Vital Signs
Temp Pulse Resp BP Pulse Ox
97.8 F 64 16 131/66 98
11/22/23 11:05 11/22/23 11:05 11/22/23 11:05 11/22/23 11:05 11/22/23 11:05
I&O
11/21/23 11/22/23 11/23/23
06:59 06:59 06:59
Intake Total 720 / 720 960 / 960
Output Total 500 / 500 650 / 650
Balance 220 / 220 310 / 310
Review of Systems
-
History Source: Patient
All other systems: Reviewed and negative
Physical Exam
-
General: Well Developed and Well Nourished
Respiratory: Clear to Auscultation
Cardiac: Regular Rhythm
GI: Soft, Nontender and Nondistended
Genito-urinary: No Costovertebral Tender
Musculoskeletal: No Clubbing, No Cyanosis and No Edema
Neuro: Awake, Alert, Oriented and AO x 3
Psych: Calm
[2023-11-22 12:03] LABS: Glucose - Point of Care 183 mg/dl (70-99)
[2023-11-22] MEDS: NOVOLOG FLEXPEN-LOW RESISTANCE 1 UNITS SC (13:07)
[2023-11-22] MEDS: STERILE WATER FOR INJECTION 10 ML IV (15:26)
[2023-11-22] MEDS: ROCEPHIN 1000 MG IV (15:26)
[2023-11-22 16:38] LABS: Glucose - Point of Care 129 mg/dl (70-99)
[2023-11-22 20:07] LABS: Glucose - Point of Care 224 mg/dl (70-99)
[2023-11-22] MEDS: NITROSTAT (SUBLINGUAL) 0.4 MG SL ×3 (20:15→20:26)
--- NOTE | 2023-11-22 20:23 | W.PN.UPDATE ---
Update Note
Progress Note Update
RAW FINISH MILL OPERATOR
RAW FINISH MILL OPERATOR was called for chest pain and SOB. Patient complained of chest pain 10/10 of pain scale at the LT upper chest, radiating to the LT shoulder. associated with SOB.
Duo nebs given, Patient was placed on 6 L of O2 via NC, SPO2 dropped down to 80s, patient is diaphoretic, BS 224, BP 159/102, HR 108, RR 26.
-New orders of EKG, CBC, bmp, mag, Troponin, D Dimer, Pro BNP, chest x-ray, abg.
-Patient received Nitro SL x2 without relief,
-patient on aspirin daily 81mg, one time order of 243 mg aspirin given.
-one time order of Lasix 20mg IV given.
-Case reviewed with hospitalist and patient transferred to ICU.
- Daughter was present during RAW FINISH MILL OPERATOR and updated.
[2023-11-22] MEDS: MORPHINE SULFATE 1 MG IV (20:27)
[2023-11-22] MEDS: LOW STRENGTH ASPIRIN 243 MG PO (20:30)
[2023-11-22 20:33] LABS: % Basophils 0.8 % (0-2); % Eosinophils 4.4 % (0-6); % Immature Granulocytes 0.4 % (0-0.5); % Monocytes 4.4 % (1.7-9.3); Absolute Basophils 0.1 10^3/uL (0-0.2); Absolute Eosinophils 0.4 10^3/uL (0-0.7); Absolute Monocytes 0.4 10^3/uL (0.1-0.6); Absolute Neutrophils 4.8 10^3/uL (1.4-6.5); Hemoglobin 9.8 g/dL (12.0-16.0); Mean Corp Hgb Conc. 33.8 g/dL (33.0-37.0); Mean Corpuscular Hgb 27.8 pg (27.0-31.0); Mean Corpuscular Volume 82.2 fL (81.0-99.0); Mean Platelet Volume 8.8 fL (7.4-10.4); Nucleated Red Blood Cells % 0 %; Platelet Count 411 10^3/uL (130-400); Red Blood Cell Count 3.53 10^6/uL (4.20-5.40); Red Cell Dist. Width 14.7 % (11.5-14.5); White Blood Cell Count 9.7 10^3/uL (4.8-10.8)
[2023-11-22 20:34] LABS: B.E. -1.7 mmol/L; HCO3 24.3 mmol/L (21-28); O2 Saturation % 91.3 % (94-98); PCO2 46 mmHg (32-35); PO2 62 mmHg (83-108); pH 7.33 (7.35-7.45)
[2023-11-22 20:39] LABS: Blood Urea Nitrogen 68 mg/dl (7-17); Calcium 9.9 mg/dl (8.4-10.2); Carbon Dioxide 23 mmol/L (22-30); Chloride 106 mmol/L (98-107); Estimated Creatinine Clearance 14 ml/min; Glucose 200 mg/dl (70-99); Magnesium 1.8 mg/dl (1.6-2.3); Potassium 4.6 mmol/L (3.5-5.1); Sodium 142 mmol/L (135-145); eGFR 19.32
[2023-11-22 20:40] LABS: INR 1.03; PT 13.5 Sec (11.4-14.6)
--- NOTE | 2023-11-22 20:40 | RR ---
A Rapid Response was called on this patient, please see Rapid Response form.
Patient up to bedside commode and complaining of '10/10 chest pain and pressure', described it as radiating down her left arm. Patient diaphoretic and hypoxic. Patient assisted back into bed and RR called. EKG showing sinus tachycardia, BP elevated,
pulse ox 91% on 3L. Orders for sublingual nitro given x3, 1mg IV morphine, and 243 mg aspirin. Patient placed on 10L midflow, received breathing tx from RT. Patient transferred to ICU per orders, daughter at bedside.
[2023-11-22 20:41] LABS: APTT 35.1 Sec (23.4-35.0)
[2023-11-22] MEDS: XOPENEX 0.63 MG INHALANT SOLUTION INH (20:43)
[2023-11-22 20:50] LABS: NT-proBNP 1950 pg/ml; Troponin I 0.035 ng/ml
[2023-11-22 20:55] LABS: Procalcitonin < 0.05 ng/ml (0.0-0.25)
[2023-11-22] MEDS: NITROGLYCERIN PREMIX 250 IV (21:03)
[2023-11-22] MEDS: COREG PO (21:26)
[2023-11-22] MEDS: RANEXA EXTENDED RELEASE PO (21:26)
[2023-11-22] MEDS: NEURONTIN PO (21:27)
[2023-11-22] MEDS: PROCARDIA XL (EXTENDED RELEASE) PO (21:29)
[2023-11-22] MEDS: VANCOCIN 275 MG IV (21:31)
[2023-11-22] MEDS: ZOSYN 50 IV (21:40)
[2023-11-22 21:44] LABS: Lactic Acid 1.8 mmol/L (0.7-2.0)
[2023-11-22 21:53] LABS: Fibrinogen 498 MG/DL (199-459)
[2023-11-22] MEDS: HEPARIN 25000 UNITS/250 ML IV (22:08)
[2023-11-22 22:23] LABS: Glucose - Point of Care 233 mg/dl (70-99)
--- NOTE | 2023-11-22 22:40 | W.PN.UPDATE ---
Update Note
Progress Note Update
2216 Patient transferred to the ICU from on the 4th floor. �According to rapid response nurse, patient was using bedside commode and return to bed and became diaphoretic, chest pain 10/10 that radiating down her left arm, and hypoxic. � team
gave sublingual nitro *2 without resolution of chest pain. Additional medications that were received in rapid response�was morphine and ASA. �Labs of significance: �PLT 411, Fibrinogen 498, D-dimer 7.9, ABG 7.33/46/62, LA 1.8, Troponin 0.035 (on
admission 0.087), pro BNP 1950 from 1140.�EKG showed Sinus TACH 117 bpm with left bundle branch block (LLLB is chronic). CXR revealed right lung base suspicious for worsening pneumonia. ��
Plan: �
Concern for ACS vs PE, Empiric starting of nitro and heparin drip. KELLIE = preventing CT scan; consider VQ scan in am.�
Worsening PNA = broaden antibiotics coverage�
CHF = fluids on hold
Hypoxia = non rebreather
Cardiology updated�
Daughter updated at bedside.�
�
--- NOTE | 2023-11-22 22:45 | PTCARENOTE ---
received patient after rapid response. pt alert and orientated c/o 10/10 chest pain, described as dull/pressure. nitro SL and asa given at the RR. pt started on a nitro gtt with relief of the chest pain. labs drawn. weaned from the non-rebreather to
4L NC. hepain gtt started. family at bedside.
[2023-11-23] VITALS (59 sets, daily range): BP systolic 130–189; BP diastolic 71–100; BMI 25.6
[2023-11-23] MEDS: APRESOLINE 10 MG IV ×2 (03:40→06:11)
[2023-11-23 04:58] LABS: Hematocrit 27.1 % (37.0-47.0)
--- NOTE | 2023-11-23 05:05 | PTCARENOTE ---
Patient asleep. NSR w/ LBBB. Oxygen weaned down to 2L NC. Nitro gtt stopped. Heparin gtt running. Family at bedside.
[2023-11-23 05:15] LABS: APTT 175.8 Sec (23.4-35.0)
[2023-11-23] MEDS: ZOSYN 50 IV ×3 (05:52→22:47)
[2023-11-23 06:18] LABS: Blood Urea Nitrogen 68 mg/dl (7-17); Calcium 9.8 mg/dl (8.4-10.2); Carbon Dioxide 23 mmol/L (22-30); Chloride 109 mmol/L (98-107); Estimated Creatinine Clearance 15 ml/min; Glucose 150 mg/dl (70-99); Potassium 4.6 mmol/L (3.5-5.1); Sodium 141 mmol/L (135-145); eGFR 21.36
--- NOTE | 2023-11-23 06:25 | PTCARENOTE ---
No deviations in status, patient made NPO, Heparin and zosyn gtt running. Purewick put in place. Family at bedside.
--- NOTE | 2023-11-23 07:42 | CON.INTV ---
Consultation
Consultation Request
Date/Time Consultation Requested: 11/23/2023-7:30 AM
Date/Time Consultation Performed: 11/23/2023-7:30 AM
Requesting Provider: Cardiology
Performing Provider: Dr. Carbajal
Reason for Consultation: Unstable angina/critical care management
Medical History
-
Chief Complaint: Chest pain
History of Present Illness:
78-year-old female with a history of hypertension, hyperlipidemia, CAD, diabetes, chronic kidney disease with recent admission to [facility] with respiratory failure, requiring intubation, cardiomyopathy, possible pneumonia and KELLIE presented
with weakness and elevated troponin-parking lot attendant consulted for chest pain/unstable angina/critical care management 11/23/2023. She was placed on a nitroglycerin drip. This was slowly weaned and will be resumed as she will be going to cardiac
catheterization likely tomorrow. She currently denies any shortness of breath at rest, chest pain, chest tightness, chest congestion, productive cough, pleurisy, mopped assist, abdominal pain, nausea, focal weakness or increased lower extremity
edema.
Past Medical History
Past Medical History: None (Hypertension. Hyperlipidemia. CHF reduced EF. CAD. Chronic renal failure. Diabetes.)
Social History
Tobacco: Non-smoker
Alcohol: None
Drug: None
Living: With Family
Occupational Exposures: No known asbestos exposure
Environmental Exposures: No known tuberculosis exposure
Family History
Family History: Reviewed & Not Pertinent
Allergies / Home Medications
Allergies
Allergy/AdvReac Type Severity Reaction Status Date / Time
No Known Allergies Allergy Unverified 11/20/23 06:21
Home Medications
�Medication �Instructions �Recorded �Confirmed �Last Taken �Type
acetaminophen 500 mg tablet 1,000 mg PO Q6HPRN PRN mild pain 11/20/23 11/20/23 Unknown History
(Tylenol Extra Strength)
aspirin 81 mg tablet,delayed 81 mg PO DAILY Blood Clot 11/20/23 11/20/23 11/19/23 History
release Prevention/Tx
carvedilol 12.5 mg tablet 12.5 mg PO BID Blood Pressure 11/20/23 11/20/23 11/19/23 History
clopidogrel 75 mg tablet 75 mg PO DAILY Blood Clot 11/20/23 11/20/23 11/19/23 History
Prevention/Tx
isosorbide mononitrate 60 mg 60 mg PO DAILY Heart 11/20/23 11/20/23 11/19/23 History
tablet,extended release 24 hr Disease/Condition
lisinopril 40 mg tablet 40 mg PO DAILY Blood Pressure 11/20/23 11/20/23 11/20/23 History
metformin 500 mg tablet,extended 1,000 mg PO .SEE BELOW Diabetes 11/20/23 11/20/23 11/19/23 History
release 24 hr
nifedipine 30 mg tablet,extended 30 mg PO HS Blood Pressure 11/20/23 11/20/23 11/19/23 History
release 24 hr
ranolazine 500 mg tablet,extended 1,000 mg PO BID Heart 11/20/23 11/20/23 11/19/23 History
release,12 hr Disease/Condition
rosuvastatin 10 mg tablet 10 mg PO DAILY High Cholesterol 11/20/23 11/20/23 11/19/23 History
Review of Systems
-
Unable to Obtain full review of systems at this time due to: Other (Per HPI)
Vitals / Labs / Diagnostic Testing
Vital Signs
Temp Pulse Resp BP Pulse Ox
97.6 F 85 23 183/93 98
11/23/23 03:09 11/23/23 06:11 11/23/23 05:45 11/23/23 06:11 11/23/23 05:45
Lab Data
11/23/23 04:37
11/23/23 04:37
Laboratory Results
11/22/23 11/22/23 11/22/23
20:15 20:29 21:40
PT 13.5
INR 1.03
APTT 35.1 H Cancelled
pH 7.33 L
pCO2 46 H
pO2 62 L
HCO3 24.3
O2 Delivery Level
11/23/23
04:37
PT
INR
APTT 175.8 H*
pH
pCO2
pO2
HCO3
O2 Delivery Level
Diagnostic Testing:
Physical Exam
-
Exam:
Well-nourished and well-developed in no apparent distress
HEENT-atraumatic, normocephalic
Neck-supple, no JVD, no bruit
Heart-regular rate and rhythm-no murmurs, rubs or gallops
Chest with rare basilar crackles and no wheezes
Back without tenderness
Abdomen-soft, nontender, nondistended, no hepatosplenomegaly
Extremities-no cyanosis, clubbing, edema
Integument-intact, no rashes, lesions or ecchymosis
Neurology-alert and oriented, nonfocal motor and sensory exam
Assessment
-
78-year-old female with a history of hypertension, hyperlipidemia, CAD, diabetes, chronic kidney disease with recent admission to [facility] with respiratory failure, requiring intubation, cardiomyopathy, possible pneumonia and KELLIE presented
with weakness and elevated troponin-parking lot attendant consulted for chest pain/unstable angina/critical care management 11/23/2023.
Acute coronary syndrome
CAD status post PCI
Hypertensive urgency at prior hospitalization prompted pulmonary edema
Pneumonia-right lower lobe
Hypoxemic and mild hypercapnic respiratory insufficiency--ABG 11/22/2023--46/62/7.33-on 6 L nasal cannula
KELLIE on top of chronic kidney disease
[id number] 9
QT prolongation
Left foot pain
Fecal impaction
Hyperglycemia
Transaminitis
Umbilical hernia
DJD
Conditions present prior to admission:
Hypertension.
Hyperlipidemia.
CHF reduced EF-EF 40%
Chronic systolic heart failure
CAD-last stent 2018
Chronic renal failure.
Diabetes. 2 cm left renal simple cyst
Cholecystectomy
Plan
Patient transferred to ICU with ongoing chest pain requiring nitroglycerin drip
Supplemental oxygen as needed-attempt to wean
Nebulizers if [id number], no bronchospasm-no need for standing nebulizers
Aspiration precautions
Follow cultures
Empiric antibiotics to cover pneumonia
Follow chest x-ray
Cardiology following-correspondence reviewed-reviewed with Dr. Alex
Nitroglycerin drip reinitiation
Monitor for recurrent chest pain
Trend troponin
Antihypertensives
On Coreg, nifedipine, Imdur, Ranexa, and nitroglycerin drip
On dual antiplatelet therapy
Cardiac catheterization if renal function improves-tentatively 11/24/2023
Ranexa will be held with QT prolongation
Follow QTc
Monitor renal function
Nephrology following-correspondence reviewed
Replace electrolytes
Monitor hemoglobin
Transfuse if needed
Bowel regiment
Follow LFTs
Monitor blood sugar
Insulin supplementation as needed
DVT prophylaxis-mechanical
Early nutrition
Early mobilization per cardiology
If able to be weaned from nitroglycerin drip or placed on stable doses the patient could be transferred to IVU-pulmonary will follow briefly for pneumonia
Critical care statement: A total of 50 minutes of critical care time was provided for this patient today. This includes management of unstable vital signs, evaluation of the patient at bedside, reviewing the patient's pertinent medical records
including radiographs, pressor management, unstable angina management, microbiology, laboratory evaluations, and discussion with primary team, consultants, pharmacy, nutrition, physical therapy, case management, charge nurse, critical care nursing,
and respiratory therapy.
Diagnostic data:
Chest x-ray 11/20/2023-right lower lobe asymmetrical pulm edema versus developing pneumonia, heart enlarged
Chest x-ray 11/22/2023-progressive right lower lobe pneumonia mild degree of pulmonary vascular congestion
Renal ultrasound 11/20/2023-simple upper pole right renal cyst measuring 3.9 cm, unremarkable otherwise
CT head 11/21/2023-no acute intracranial abnormalities, diffuse cortical atrophy
CT abdomen and pelvis 11/21/2023-moderate volume widespread colonic stool, 4 cm simple right renal cyst, prior cholecystectomy, small fat-containing umbilical hernia
Echocardiogram 11/20/2023-EF 35-40%, global hypokinesis, moderate mitral regurgitation, PA systolic 35
Data Reviewed
-
EKG: Report reviewed by me
Radiology: Image personally visualized and interpreted and Report reviewed by me
CT Scan: Report reviewed by me
Medical Tests (Nuc Med, Echo etc): Report reviewed by me
Labs: Labs reviewed by me
Old Records: Reviewed
Critical Care Time (in minutes): 50
--- NOTE | 2023-11-23 07:52 | W.PN.HOSP.TC ---
Today's Communication/Plan
-
COnt Heparin
Cardio to follow
Assessment / Plan
Assessment / Plan
78yo F with PMHx of HtN, DM, HLD, tacotsubo CM, recent admission with intubation to [facility] managed for HFpEF exacerbation, tacotsubo CM and pneumonia, discharged home but had gradually worsening weakness. Admitted with malaise and
worsening KELLIE, found constipation with fecal impaction. Later found concern for RLL so Abx started. In evening of 11/22/23 had episode of significant chest pain, later found with elevated troponin and hypertension, concerning for ACS
A/P:
#ACS
#CAD s/p PCI
#LBBB
#Acute hypoxic insufficiency
#HTN emergency
cont DAPT
Heparin drip
Cardiology follows
Cardiac cath complicated by presence of KELLIE on CKD. Nephrology to be involved.
Nitro drip
#Worsening weakness, most likely deconditioning 2/2 recent hospitalization
PT/OT eval
TSH, cortisol AM WNL
No signs of UTI on UA
Head CT without significant acute findings
#L foot pain
suspect DJD
XR
#Concern for RLL pneumonia on XR with unspecified organism
Unclear if new findings
Bcx neg to date
started empiric Rocephin/DOxy that broadened to Vanco/Zosyn on 11/23/23
#Fecal impaction
resolved with Enema
#KELLIE, multifactorial
as per review of previous records -Cr jumped up from 1.8-19 to 2.5 and then 3.0
IVF trial
FeNa 2.6
US renal without signs of hydronephrosis
Nephrology consult: cont mild hydration
IVF
follow Cr
#Chronic HFmrEF
#Takotsubo CM
#Essential HTN
Echo showed EF 35-40% with global hypokinesis
COnt home meds
Adjust BP meds
#DM type 2 with unspecified complications
Insulin SS, DM diet
#Anemia, stable
no deficiency noted
No overt bleeding
follow CBC
Outpatient follow up
#Transaminitis
resolved
#2cm L renal simple cyst
#Umbilical hernia
#DJD
follow with PCP upon d/c
#Foot pain
XR showed DJD
DVT ppx hep
FUll code
I have spent at least 56min reviewing chart, test results, communication with consultants and family and direct patient care
Anticipated Discharge: > 48 hours
Subjective/Interval History
-
Date of Service: November 23, 2023
Objective Data
-
Labs:
Laboratory Results
11/22/23 11/22/23 11/22/23
20:15 20:29 21:40
WBC 9.7 Cancelled
Hgb 9.8 L Cancelled
Hct 29.0 L Cancelled
Plt Count 411 H D Cancelled
PT 13.5
INR 1.03
APTT 35.1 H Cancelled
HCO3 24.3
Sodium 142
Potassium 4.6
Chloride 106
Carbon Dioxide 23
BUN 68 H
Creatinine 2.5 H
Glucose 200 H
Calcium 9.9
11/23/23 11/23/23
04:37 12:15
WBC
Hgb 9.0 L
Hct 27.1 L
Plt Count
PT
INR
APTT 175.8 H* Pending
HCO3
Sodium 141
Potassium 4.6
Chloride 109 H
Carbon Dioxide 23
BUN 68 H
Creatinine 2.3 H
Glucose 150 H
Calcium 9.8
Vital Signs:
Vital Signs
Temp Pulse Resp BP Pulse Ox
97.6 F 85 23 183/93 98
11/23/23 03:09 11/23/23 06:11 11/23/23 05:45 11/23/23 06:11 11/23/23 05:45
I&O
11/22/23 11/23/23 11/24/23
06:59 06:59 06:59
Intake Total 960 / 960 1324.5 / 1324.5
Output Total 650 / 650 500 / 500 500 / 500
Balance 310 / 310 824.5 / 824.5 -500 / -500
--- NOTE | 2023-11-23 08:23 | W.PN.CD ---
Today's Communication / Plan
-
follow echo today for EF and wall motion
discussed with family, hospitalist, critical care team, nephrology, and interventional cards: Cr is 2.3 (improved from 3, and baseline is ~1.8) today, and she is chest pain free
will plan for cardiac cath tomorrow, to allow renal function to stabilize some more
continue heparin drip and nitro drip; as well as ASA/Plavix/coreg
Impression / Plan
-
BACKGROUND: 78F with CAD, last stent 2018, ICM EF 40%, chronic systolic HF, NIDDM, HTN, HLD, and CKD3 with recent hospitalization at [place] requiring intubation and diagnosis of Takotsubo CM presents with weakness. She did not undergo cath. She
was discharged home, and then presented to with weakness on 11/19. She was found to have an KELLIE and a mildly elevated troponin. Echo 11/19 showed EF 35-40%, global HK, mild/mod MR, nl RV, mild TR, PASP 35. Then, on evening of 11/21, had episode of
chest pain, which appears to be in setting of NSTEMI. She was reloaded with ASA, continued on Plavix; and started on heparin and nitro drips.
NSTEMI
-currently chest pain free with med mgmt
-EKG with chronic LBBB
-trop 5, and trending
-follow echo today for EF and wall motion
-discussed with hospitalist, critical care team, nephrology, and interventional cards: Cr is 2.3 (improved from 3, and baseline is ~1.8) today, and she is chest pain free
-will plan for cardiac cath tomorrow, to allow renal function to stabilize some more
-continue heparin drip and nitro drip; as well as ASA/Plavix/coreg
KELLIE on CKD3b
-family reports b/l Cr of 1.8; was 3 on admit, and now trending down to 2.3 today
-nephrology is managing/optimized prior to cath tomorrow
CAD
-PCI to RCA, LAD, and Circ in past; last 2018
-plan as above
-On DAPT (clopidogrel & ASA): continue
-continue crestor 10mg daily
-check lipids
HTN
-She had HTN Urgency at prior hospitalization, which was believed to prompt pulmonary edema
-meds limited by KELLIE on CKD
-continue coreg: increase to 25mg bid
-continue nifedipine 60mg daily
-continue nitro drip
Type II DM
Anemia, likely of chronic disease, denies abnormal bleeding
CCT 40 min.
Physical Exam
Vital Signs/Labs
Vital Signs
Temp Pulse Resp BP Pulse Ox
97.6 F 85 23 183/93 98
11/23/23 03:09 11/23/23 06:11 11/23/23 05:45 11/23/23 06:11 11/23/23 05:45
11/22/23 11/23/23 11/24/23
06:59 06:59 06:59
Actual Weight 61.433 kg 61.5 kg
11/23/23 04:37
11/23/23 04:37
PT 13.5 Sec (11.4-14.6) 11/22/23 20:15
INR 1.03 11/22/23 20:15
APTT 175.8 Sec (23.4-35.0) H* 11/23/23 04:37
Magnesium 1.8 mg/dl (1.6-2.3) 11/22/23 20:15
11/20/23 11/22/23
07:36 20:15
Xio-P-Iatfxzhnynu Pept 1140 1950
LAB Results
11/20/23 11/20/23 11/20/23
13:01 13:53 21:40
Troponin I 0.067 H* 0.066 H* Cancelled
11/21/23 11/22/23 11/23/23
06:58 20:15 04:48
Troponin I 0.065 H* 0.035 H* 5.440 H*
Physical Exam
Constitutional: Comfortable
EENT: Moist mucous membranes
Cardiovascular: Rhythm & rate is regular, Pedal edema is absent, JVD pressure is normal and Systolic murmur present
Respiratory: Respiratory effort normal and Lungs clear to auscul.
GI: Soft and Distention absent
Neuro/Psych: Oriented
Data Reviewed
-
Date of Service: November 23, 2023
EKG: Tracing Personally Visualized and interpreted (SR, LBBB) and Other (tele: [id number])
Echo: Report Reviewed by me
Labs: Labs Reviewed by me
Critical Care Time (in minutes): 40
[2023-11-23] MEDS: CRESTOR 10 MG PO (08:40)
[2023-11-23] MEDS: RANEXA EXTENDED RELEASE 1000 MG PO (08:40)
[2023-11-23] MEDS: ASPIR LOW (ENTERIC COATED) 81 MG PO (08:40)
[2023-11-23] MEDS: PLAVIX 75 MG PO (08:40)
[2023-11-23 08:49] LABS: Glucose - Point of Care 148 mg/dl (70-99)
[2023-11-23] MEDS: COREG 25 MG PO ×2 (09:04→20:37)
--- NOTE | 2023-11-23 09:08 | PTOTSP ---
Reviewed chart and noted pt was transferred to ICU following rapid response yesterday 11/21. PT order was not continued upon transfer. Will need new order for PT when pt is stable to resume activity.
[2023-11-23] MEDS: IMDUR (EXTENDED RELEASE) PO (09:13)
[2023-11-23] MEDS: NOVOLOG FLEXPEN-LOW RESISTANCE SC ×2 (09:14→17:46)
[2023-11-23] MEDS: COREG PO (09:15)
--- NOTE | 2023-11-23 11:45 | PTCARENOTE ---
systems reviewed, pt remains free of chest pain, nitro and heparin running per physicians order, lab draws were attempted twice but no luck, at the family's request phlebotomy was called, pt taken to [facility], and phlebotomy will return when pt
returns to the floor, transfer orders in for pt to transfer to IVU, otherwise see flowchart
--- NOTE | 2023-11-23 13:11 | CM ---
CM following re: discharge planning.
Reviewed pt's chart, met with pt and 2 daughters at bedside.
PT and OPT evaluations noted - SNF level of care recommended. both pt and her daughters are aware, expressed their agreement. A list of SNFs provided from Medicare.gov. Per daughter, a list of SNFs will be reviewed with the rest of the family and
family will come with a decision of a preferred SNF.
Pt is upgraded from OBS to inpatient level of admission. IMM reviewed, placed on chart, pt has a copy.
D/C plan: preferred SNF. Pt has a list.
CM will follow to assist pt with discharge to a preferred SNF.
--- NOTE | 2023-11-23 13:45 | PTCARENOTE ---
pt returned from xray and nuclear med, she had an episode of N/V from all of the moving and repositioning, pt was tachypneic and BP was elevated, nitro was adjusted per order, pt on 4L SATing at 98%, pt denies chest pain, phlebotomy and echo called
to return and finish testing, family updated at the bedside.
[2023-11-23 14:03] LABS: Glucose - Point of Care 157 mg/dl (70-99)
[2023-11-23] MEDS: NOVOLOG FLEXPEN-LOW RESISTANCE 1 UNITS SC (14:28)
--- NOTE | 2023-11-23 14:29 | W.PN.NEPH.PH ---
Today's Communication / Plan
-
- sodium bicarb fluids
Assessment/Plan
-
Assessment:
KELLIE on ?CKD
HyperK
Constipation
Weakness
C/f PNA
Plan:
- likely in the setting of significant constipation vs. ATN in the setting of recent infection vs. cardiorenal
- Cr improved to 2.3, unclear what baseline is. 1.5?
- UA with minimal bacteria and WBCs, otherwise bland
- KUS benign
- hyperK resolved
- NSTEMI overnight, will initiate sodium bicarb gtt for contrast prep. should be continued after as well.
- please keep up with bowel regimen
- continue to trend labs
- monitor I/Os
-
-
Date of Service: November 23, 2023
CC / HPI / ROS
-
Chief Complaint:
KELLIE
History of Present Illness:
weakness
RLL PNA
fecal impaction
Cr 1.5 --> peak of 3, down to 2.3 today
Review of Systems:
NSTEMI overnight, planning for cardiac cath technologist
discussed with daughters
Labs
-
Labs:
WBC Cancelled 11/22/23 21:40
RBC Cancelled 11/22/23 21:40
Hgb 9.0 g/dL (12.0-16.0) L 11/23/23 04:37
Hct 27.1 % (37.0-47.0) L 11/23/23 04:37
Plt Count Cancelled 11/22/23 21:40
Sodium 141 mmol/L (135-145) 11/23/23 04:37
Potassium 4.6 mmol/L (3.5-5.1) 11/23/23 04:37
Chloride 109 mmol/L (98-107) H 11/23/23 04:37
Carbon Dioxide 23 mmol/L (22-30) 11/23/23 04:37
BUN 68 mg/dl (7-17) H 11/23/23 04:37
Creatinine 2.3 mg/dL (0.6-1.0) H 11/23/23 04:37
eGFR 21.36 11/23/23 04:37
Glucose 150 mg/dl (70-99) H 11/23/23 04:37
Calcium 9.8 mg/dl (8.4-10.2) 11/23/23 04:37
Ujl-T-Jsnzigcyeif Pept 1950 pg/ml 11/22/23 20:15
Albumin 3.8 g/dl (3.5-5.0) 11/22/23 06:50
Physical Exam
-
Vital Signs:
Vital Signs
Temp Pulse Resp BP Pulse Ox
97.6 F 72 18 150/78 100
11/23/23 03:09 11/23/23 12:00 11/23/23 12:00 11/23/23 12:00 11/23/23 12:00
Cardiovascular:: Regular rate and rhythm
Respiratory:: Bilateral: Coarse
Lung Excursion:: Normal
Abdomen:: Nontender and Soft
Bowel Sounds:: Normal
Extremity Edema:: None: Bilateral:
Jones Catheter: No
[2023-11-23] MEDS: SODIUM BICARBONATE 1150 MEQ IV (15:28)
[2023-11-23 15:41] LABS: APTT 161.1 Sec (23.4-35.0)
[2023-11-23] MEDS: SENOKOT-S 1 TABLET PO (16:30)
[2023-11-23 17:49] LABS: Glucose - Point of Care 135 mg/dl (70-99)
--- NOTE | 2023-11-23 21:18 | PTCARENOTE ---
Pt. received from ICU in bed. Pt. arriving with Heparin, Nitro, Normal Saline drips. Pt. AOx3. Tele reading NSR w/ L BBB. Pt. has no complaints of pain or nausea at this time. Continuing to monitor the patient at this time.
[2023-11-23 21:25] LABS: Glucose - Point of Care 161 mg/dl (70-99)
[2023-11-23] MEDS: HEPARIN 25000 UNITS/250 ML IV (22:45)
[2023-11-23] MEDS: PROCARDIA XL (EXTENDED RELEASE) 60 MG PO (22:48)
[2023-11-23] MEDS: NEURONTIN 100 MG PO (22:48)
[2023-11-23 23:46] LABS: APTT 115.6 Sec (23.4-35.0)
[2023-11-24] VITALS (25 sets, daily range): BP systolic 105–186; BP diastolic 58–116; BMI 25.0
[2023-11-24] MEDS: ZOSYN 50 IV (04:54)
[2023-11-24 05:14] LABS: % Basophils 0.6 % (0-2); % Eosinophils 4.7 % (0-6); % Immature Granulocytes 0.4 % (0-0.5); % Lymphocytes 30.6 % (20.5-51.1); % Monocytes 5.1 % (1.7-9.3); % Neutrophils 58.6 % (42.2-75.2); Absolute Basophils 0.1 10^3/uL (0-0.2); Absolute Eosinophils 0.5 10^3/uL (0-0.7); Absolute Monocytes 0.5 10^3/uL (0.1-0.6); Absolute Neutrophils 5.8 10^3/uL (1.4-6.5); Hematocrit 25.8 % (37.0-47.0); Hemoglobin 8.7 g/dL (12.0-16.0); Mean Corp Hgb Conc. 33.7 g/dL (33.0-37.0); Mean Corpuscular Hgb 28.5 pg (27.0-31.0); Mean Corpuscular Volume 84.6 fL (81.0-99.0); Mean Platelet Volume 9.3 fL (7.4-10.4); Nucleated Red Blood Cells % 0 %; Platelet Count 348 10^3/uL (130-400); Red Blood Cell Count 3.05 10^6/uL (4.20-5.40); Red Cell Dist. Width 14.8 % (11.5-14.5); White Blood Cell Count 9.9 10^3/uL (4.8-10.8)
[2023-11-24 05:24] LABS: APTT 99.9 Sec (23.4-35.0)
[2023-11-24 05:44] LABS: ALT (SGPT) 25 U/L (0-35); AST (SGOT) 57 U/L (14-36); Albumin 3.5 g/dl (3.5-5.0); Alkaline Phosphatase 47 U/L (38-126); Blood Urea Nitrogen 53 mg/dl (7-17); Calcium 9.7 mg/dl (8.4-10.2); Carbon Dioxide 26 mmol/L (22-30); Chloride 105 mmol/L (98-107); Estimated Creatinine Clearance 19 ml/min; Glucose 138 mg/dl (70-99); HDL Cholesterol 44 mg/dl; LDL Cholesterol, Calculated 63 mg/dl; Magnesium 1.5 mg/dl (1.6-2.3); Potassium 3.8 mmol/L (3.5-5.1); Sodium 138 mmol/L (135-145); Total Bilirubin 0.5 mg/dl (0.2-1.3); Total Cholesterol 129 mg/dl (50-199); Total Protein 6.3 g/dl (6.3-8.2); Triglyceride 113 mg/dl (10-149); Very Low Density Lipoprotein 22 mg/dl (0-30); eGFR 26.86
--- NOTE | 2023-11-24 07:57 | PTOTSP ---
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 Will hold PT evaluation.
[2023-11-24] MEDS: MAGNESIUM SULFATE 50 IV (08:04)
--- NOTE | 2023-11-24 08:25 | W.PN.CD ---
Today's Communication / Plan
-
cath today
cont nitro drip and heparin drip
Impression / Plan
-
BACKGROUND: 78F with CAD, last stent 2018, ICM EF 40%, chronic systolic HF, NIDDM, HTN, HLD, and CKD3 with recent hospitalization at [place] with HTN emergency, pulm edema, requiring intubation and diagnosis of possible Takotsubo CM presents with
weakness. She did not undergo cath. She was discharged home, and then presented to with weakness on 11/19. She was found to have an KELLIE and a mildly elevated troponin. Echo 11/19 showed EF 35-40%, global HK, mild/mod MR, nl RV, mild TR, PASP 35.
Then, on evening of 11/21, had episode of chest pain, which appears to be in setting of NSTEMI. She was reloaded with ASA, continued on Plavix; and started on heparin and nitro drips.
NSTEMI
-currently chest pain free with med mgmt
-EKG with chronic LBBB
-peak trop 7.36
-cath today
-continue heparin drip and nitro drip; as well as ASA/Plavix/coreg
ICM EF 30%
-down from 35-40%, with worsening lateral/inferolateral regional wall motion
-plan for cath today
-continue coreg
-other GDMT limited by renal function: after cath, once we wean nitro drip, can do imdur/hydralazine
KELLIE on CKD3b
-family reports b/l Cr of 1.4; was 3 on admit, and now trending down to 1.9 today
-nephrology is managing/optimizing for cath
CAD
-PCI to RCA, LAD, and Circ in past; last 2019
-plan as above
-On DAPT (clopidogrel & ASA): continue
-continue crestor 10mg daily
-LDL 63
HTN
-She had HTN Urgency at prior hospitalization, which was believed to prompt pulmonary edema
-meds limited by KELLIE on CKD
-continue coreg: increase to 25mg bid
-continue nifedipine 60mg daily
-continue nitro drip
Type II DM
Anemia, likely of chronic disease, denies abnormal bleeding
Physical Exam
Vital Signs/Labs
Vital Signs
Temp Pulse Resp BP Pulse Ox
97.8 F 70 16 105/62 100
11/24/23 07:46 11/24/23 06:00 11/24/23 07:46 11/24/23 06:00 11/24/23 07:46
11/23/23 11/24/23 11/25/23
06:59 06:59 06:59
Actual Weight 61.5 kg 60 kg
11/24/23 04:50
11/24/23 04:50
PT 13.5 Sec (11.4-14.6) 11/22/23 20:15
INR 1.03 11/22/23 20:15
APTT 99.9 Sec (23.4-35.0) H 11/24/23 04:50
Magnesium 1.5 mg/dl (1.6-2.3) L 11/24/23 04:50
Triglycerides 113 mg/dl (10-149) 11/24/23 04:50
LDL Cholesterol, Calc 63 mg/dl 11/24/23 04:50
VLDL Cholesterol, Calc 22 mg/dl (0-30) 11/24/23 04:50
HDL Cholesterol 44 mg/dl 11/24/23 04:50
11/20/23 11/22/23
07:36 20:15
Jzi-G-Ikveijdsmqf Pept 1140 1950
LAB Results
11/22/23 11/23/23 11/23/23
20:15 04:48 14:56
Troponin I 0.035 H* 5.440 H* 7.360 H*
11/23/23 11/23/23
15:02 22:34
Troponin I Cancelled 7.190 H*
Physical Exam
Constitutional: No acute distress and Comfortable
EENT: Moist mucous membranes
Cardiovascular: Rhythm & rate is regular, Pedal edema is absent, JVD pressure is normal and Systolic murmur present
Respiratory: Respiratory effort normal and Lungs clear to auscul.
GI: Soft and Distention absent
Neuro/Psych: Oriented
Data Reviewed
-
Date of Service: November 24, 2023
EKG: Other (Tele: SR 70s)
Labs: Labs Reviewed by me
[2023-11-24] MEDS: COREG 25 MG PO ×2 (08:32→19:36)
[2023-11-24] MEDS: CRESTOR 10 MG PO (08:32)
[2023-11-24] MEDS: ASPIR LOW (ENTERIC COATED) 81 MG PO (08:32)
[2023-11-24] MEDS: PLAVIX 75 MG PO (08:32)
[2023-11-24] MEDS: NOVOLOG FLEXPEN-LOW RESISTANCE SC ×3 (08:41→18:52)
[2023-11-24 08:42] LABS: Glucose - Point of Care 125 mg/dl (70-99)
--- NOTE | 2023-11-24 09:12 | W.PN.PUL3 ---
Today's Communication / Plan
-
Wean o2 as tolerated, reviewed with RT
Suspect this is mostly due to volume overload
Repeat ProBNP >11,000--diuresis per team
No signs of infection, culture negative, can stop abx and observe
IS, OOB and PT when able
CTS consult post cath results, we will see again if patient undergoes surgery and transferred to CVICU
We will sign off at this time, please notify us if needed again
Assessment
-
78-year-old female with a history of hypertension, hyperlipidemia, CAD, diabetes, chronic kidney disease with recent admission to [facility] with respiratory failure, requiring intubation, cardiomyopathy, possible pneumonia and KELLIE presented
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
Acute coronary syndrome
CAD status post PCI
Hypertensive urgency at prior hospitalization prompted pulmonary edema
Pneumonia-right lower lobe
Hypoxemic and mild hypercapnic respiratory insufficiency--ABG 11/22/2023--46/62/7.33-on 6 L nasal cannula
KELLIE on top of chronic kidney disease
Lzufin-shhaepqpkd-deyrrkchni 9
QT prolongation
Left foot pain
Fecal impaction
Hyperglycemia
Transaminitis
Umbilical hernia
DJD
Conditions present prior to admission:
Hypertension.
Hyperlipidemia.
CHF reduced EF-EF 40%
Chronic systolic heart failure
CAD-last stent 2018
Chronic renal failure.
Diabetes. 2 cm left renal simple cyst
Cholecystectomy
Plan
97% on 4L NC
Supplemental oxygen as needed-attempt to wean
Nebulizers if rtvuvj-wpl-homrdy, no bronchospasm-no need for standing nebulizers
Aspiration precautions
Eventual home O2 eval
Follow cultures, MRSA neg
Empiric antibiotics to cover pneumonia, received 3 days
Procal neg, no WBC
I think at this point can stop abx and observe off
Follow chest x-ray as needed
Suspect mostly volume overload
Repeat proBNP is >11,000
Diuresis on hold
Cardiology following-correspondence reviewed-reviewed with Dr. Alex
Nitroglycerin drip reinitiation
Monitor for recurrent chest pain
Trend troponin
Antihypertensives
On Coreg, nifedipine, Imdur, Ranexa, and nitroglycerin drip
On dual antiplatelet therapy
Cardiac catheterization if renal function improves-tentatively 11/24/2023
Ranexa will be held with QT prolongation
Follow QTc
LHC today--NSTEMI/ACS indication
severe multivessel CAD noted, CTS consult pending
Monitor renal function
Nephrology following-correspondence reviewed
Replace electrolytes
Monitor hemoglobin
Transfuse if needed
Bowel regiment
Follow LFTs
Monitor blood sugar
Insulin supplementation as needed
DVT prophylaxis-mechanical
Early nutrition
Early mobilization per cardiology
Diagnostic Data
Chest x-ray 11/20/2023-right lower lobe asymmetrical pulm edema versus developing pneumonia, heart enlarged
Chest x-ray 11/22/2023-progressive right lower lobe pneumonia mild degree of pulmonary vascular congestion
Renal ultrasound 11/20/2023-simple upper pole right renal cyst measuring 3.9 cm, unremarkable otherwise
CT head 11/21/2023-no acute intracranial abnormalities, diffuse cortical atrophy
CT abdomen and pelvis 11/21/2023-moderate volume widespread colonic stool, 4 cm simple right renal cyst, prior cholecystectomy, small fat-containing umbilical hernia
Echocardiogram 11/20/2023-EF 35-40%, global hypokinesis, moderate mitral regurgitation, PA systolic 35
Subjective Data
-
Date of Service:
Date of Service: November 24, 2023
Chief Complaint: Pulmonary Follow Up
Subjective:
post cath, no complaints
remains on o2
Objective Data
Data Reviewed
Vital Signs / I&O / Oxygen:
Vital Signs
Temp Pulse Resp BP Pulse Ox
97.8 F 72 16 111/66 100
11/24/23 07:46 11/24/23 08:32 11/24/23 07:46 11/24/23 08:32 11/24/23 07:46
Intake and Output
11/23/23 11/24/23 11/25/23
06:59 06:59 06:59
Intake Total 1324.5 / 1324.5 1561.0 / 1561.0
Output Total 500 / 500 1950 / 1950
Balance 824.5 / 824.5 -389.0 / -389.0
SaO2 100
Nasal Cannula flow liters per 4
minute
Physical Exam
General: Comfortable and Other (NAD)
HEENT: Normocephalic, Anicteric and Moist Mucous Membranes
Cardiovascular: S1-S2 and Regular Rhythm
Respiratory: Clear and Non-Labored Respirations
GI: Soft, Non Distended and Non Tender
Neurology: Awake, Alert, Oriented, AO x 3 and No Motor Deficits
Skin: Warm, Dry and Good Color
Labs/Micro/Reports
Lab Data
11/24/23 04:50
11/24/23 04:50
Laboratory Results
11/23/23 11/23/23 11/23/23
14:56 22:34 22:58
APTT 161.1 H* Cancelled Cancelled
11/23/23 11/24/23
23:23 04:50
APTT 115.6 H 99.9 H
Microbiology
11/22/23 21:25 Nose Nasal Screen MRSA (PCR) - Final
MRSA not detected - performed by PCR methodology.
[2023-11-24] MEDS: TYLENOL 650 MG PO (10:01)
[2023-11-24] MEDS: SODIUM BICARBONATE 1150 MEQ IV (10:28)
--- NOTE | 2023-11-24 10:58 | PTCARENOTE ---
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
--- NOTE | 2023-11-24 11:36 | W.PN.HOSP.TC ---
Today's Communication/Plan
-
cardiac cath planned for today
cont Abx
Assessment / Plan
Assessment / Plan
78yo F with PMHx of HtN, DM, HLD, tacotsubo CM, recent admission with intubation to [facility] managed for HFpEF exacerbation, tacotsubo CM and pneumonia, discharged home but had gradually worsening weakness. Admitted with malaise and
worsening KELLIE, found constipation with fecal impaction. Later found concern for RLL so Abx started. In th evening of 11/22/23 had episode of significant chest pain, later found with elevated troponin and hypertension, concerning for ACS
A/P:
#NSTEMI
#CAD s/p PCI
#LBBB
#Acute hypoxic insufficiency
#HTN emergency
cont DAPT
Heparin drip
Cardiology follows
Cardiac cath complicated by presence of KELLIE on CKD. Nephrology to be involved.
Nitro drip
#Worsening weakness, most likely deconditioning 2/2 recent hospitalization
PT/OT eval
TSH, cortisol AM WNL
No signs of UTI on UA
Head CT without significant acute findings
#L foot pain
suspect DJD
XR neg for acute findings
cont tylenol
#Concern for RLL pneumonia on XR with unspecified organism
Unclear if new findings
Bcx neg to date
started empiric Rocephin/DOxy that broadened to Vanco/Zosyn on 11/23/23
#Fecal impaction
resolved with Enema
#KELLIE, multifactorial
as per review of previous records -Cr jumped up from 1.8-19 to 2.5 and then 3.0
IVF trial - Cr improved from 3.0 to 1.9
FeNa 2.6
US renal without signs of hydronephrosis
Nephrology consult: cont mild hydration
IVF
follow Cr
#Chronic HFmrEF
#Takotsubo CM
#Essential HTN
Echo showed EF 35-40% with global hypokinesis
COnt home meds
Adjust BP meds
#DM type 2 with unspecified complications
Insulin SS, DM diet
#Anemia, stable
no deficiency noted
No overt bleeding
follow CBC
Outpatient follow up
#Transaminitis
resolved
#2cm L renal simple cyst
#Umbilical hernia
#DJD
follow with PCP upon d/c
#Foot pain
XR showed DJD
#Hypomagnesemia
repleted
DVT ppx hep
FUll code
I have spent at least 36min reviewing chart, test results, communication with consultants and family and direct patient care
Anticipated Discharge: > 48 hours
Subjective/Interval History
-
Date of Service: November 24, 2023
Objective Data
-
Labs:
Laboratory Results
11/23/23 11/24/23 11/24/23
23:23 04:50 12:09
WBC 9.9
Hgb 8.7 L
Hct 25.8 L
Plt Count 348
APTT 115.6 H 99.9 H Pending
Sodium 138
Potassium 3.8
Chloride 105
Carbon Dioxide 26
BUN 53 H
Creatinine 1.9 H
Glucose 138 H
Calcium 9.7
Total Bilirubin 0.5
AST 57 H
ALT 25
Alkaline Phosphatase 47
Vital Signs:
Vital Signs
Temp Pulse Resp BP Pulse Ox
97.8 F 68 18 113/65 99
11/24/23 07:46 11/24/23 11:00 11/24/23 10:30 11/24/23 10:30 11/24/23 10:30
I&O
11/23/23 11/24/23 11/25/23
06:59 06:59 06:59
Intake Total 1324.5 / 1324.5 1561.0 / 1561.0
Output Total 500 / 500 1950 / 1950
Balance 824.5 / 824.5 -389.0 / -389.0 -
Review of Systems
-
History Source: Patient and Family
All other systems: Reviewed and negative
Physical Exam
-
General: No Apparent Distress
HEENT: Normocephalic and Atraumatic
Respiratory: Clear to Auscultation
Cardiac: Regular Rhythm
GI: Soft, Nontender and Nondistended
Genito-urinary: No Costovertebral Tender
Musculoskeletal: No Clubbing, No Cyanosis and No Edema
Skin: Warm
Neuro: Awake, Alert, Oriented, AO x 3 and No Motor Deficits
Psych: Calm
--- NOTE | 2023-11-24 12:07 | ITS.CL.CATH ---
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
Cardiac Catheterization
Procedure Report:
CARDIAC CATHETERIZATION REPORT
Date of Procedure: 11/24/2023
Referring: Tc Block MD
Indication: NonSTEMI
HEMODYNAMIC DATA
AO: 129/64
LV: 129/17
LEFT VENTRICULOGRAPHY: Not performed due to CKD (Cr now 1.9, was 3.5 on admission)
CORONARY ANGIOGRAPHY
Dominance: Right
Left Main: Normal
LAD: 60-70% proximal LAD stenosis. There is 80% mid LAD stenosis with focal 80% mid to distal LAD stenosis. The first diagonal branch is tiny with 80% ostial stenosis. The large second diagonal branch has a long 70% proximal to mid stenosis
Circumflex: There is a complex bifurcation stent involving the large OM1 and mid circumflex with both vessels stented. There is 80-90% restenosis at the origin of the obtuse marginal branch stent and 60-70% stenosis within the mid circumflex
stented segment just distal to the takeoff of the large OM1. OM1 also has a long 70-80% mid stenosis. OM 2 and OM 3 are small to medium sized vessels which were angiographically normal
RCA: 80% mid RCA stenosis at the crux within a previously stented segment. There is 80-90% stenosis spanning the takeoff of the RPDA extending to the origin of the RPL
Closure Device: None-the procedure was performed via the right radial artery
Radiation (mGy): 295
DAP (cm2.Gy): 25.4
Fluoroscopy time: 2.2 minutes
CONCLUSIONS
1: ACS/non-STEMI presentation (Trop peak 7.5)
2: Severe multisegment triple-vessel CAD as described
3. Total contrast 24 mL Visipaque
4. Will obtain CTS consultation for CABG- even incomplete revascularization would require at least 6 new stents. Optimal CABG would included LAD, Diag, Om1 ,RPDA, RPL targets
Copy to: Anne Marie Grossman DO, Kingsley Iverson MD
Kanu Manning MD, [facility], [facility]
--- NOTE | 2023-11-24 12:25 | CONSULT.CT ---
Consultation
-
Date/Time Consultation Requested: 11/23
Date/Time Consultation Performed: 11/23
Requesting Provider: Dr. Manning
Performing Provider: Maria L Reyna for Dr. Almas Robins
Reason for Consultation: CABG evaluation
Patient History
Physicians
Family Physician: Anne Marie Choi
Outpatient Metal Washing Machine Operator: Kingsley Iverson ([facility])
Inpatient Metal Washing Machine Operator: Kanu Manning
History of Present Illness
78-year-old -[place] female with past medical history significant for hypertension, hyperlipidemia, CAD with 7 prior stents (last 2018), diabetes, chronic kidney disease and recent admission to [facility] with respiratory failure,
requiring intubation x 2 days, cardiomyopathy, possible pneumonia and KELLIE, was admitted on 11/20/2023 for evaluation of 4-day history of progressive weakness and fatigue. Found to have KELLIE (Initial creatinine 3) and troponin 0.087. Patient denied
chest pain. Hydrochlorothiazide, lisinopril and metformin were held on admission. Found to have constipation with fecal impaction-relieved by enema. TTE on 11/19 reported an EF 35-40% with mild-moderate mitral regurgitation. On , patient
experienced 10/10 chest pain and shortness of breath. A rapid response was called and blood work revealed elevated troponin (5.4) and BNP levels (1140>1950). IV nitroglycerin and heparin were started. Repeat TTE on 11/22 reported inferolateral
hypokinesis and ejection fraction of 30%. Patient underwent left heart cath on 11/24/2023, which reported triple-vessel coronary disease including in-stent restenosis of circumflex, OM, and RCA. Cardiac surgery was asked to evaluate for CABG.
Patient currently pain-free, resting in bed with daughter Roxanne at bedside
LHC (R radial) on 11/24/23:
Left Main: Normal
LAD: 60-70% proximal LAD stenosis. 80% mid LAD stenosis with focal 80% mid to distal LAD stenosis.
D1: tiny with 80% ostial stenosis.
D2: long 70% proximal to mid stenosis
Circumflex: There is a complex bifurcation stent involving the large OM1 and mid circumflex with both vessels stented. 80-90% restenosis at the origin of the obtuse marginal branch stent and 60-70% stenosis within the mid circumflex stented segment
just distal to the takeoff of the large OM1. OM1 also has a long 70-80% mid stenosis.
OM 2 and OM 3:small to medium sized vessels which were angiographically normal
RCA: 80% mid RCA stenosis at the crux within a previously stented segment. 80-90% stenosis spanning the takeoff of the RPDA extending to the origin of the RPL
Past Medical History
Past Medical History: CAD (7 prior stnets (last 2018)), CHF (HFrEF; hx Takosubo CM; ), RODRIGUES, HTN, Hypercholesterolemia, NIDDM (dx'd 2010) and Renal Insufficiency (acute)
Past Surgical History
Past Surgical History: PCI/Stent
Family History
Mother: N/A
Father: N/A
Social History
Alcohol: None
Drug: None
Tobacco: Non-Smoker
Personal: and Other (7 children- all living)
Living: Alone
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
Allergies
Allergy/AdvReac Type Severity Reaction Status Date / Time
No Known Allergies Allergy Unverified 11/20/23 06:21
Home Medications
�Medication �Instructions �Recorded �Confirmed �Type
acetaminophen 500 mg tablet 1,000 mg PO Q6HPRN PRN mild pain 11/20/23 11/20/23 History
(Tylenol Extra Strength)
carvedilol 12.5 mg tablet 12.5 mg PO BID Blood Pressure 11/20/23 11/20/23 History
clopidogrel 75 mg tablet 75 mg PO DAILY Blood Clot 11/20/23 11/20/23 History
Prevention/Tx
isosorbide mononitrate 60 mg 60 mg PO DAILY Heart 11/20/23 11/20/23 History
tablet,extended release 24 hr Disease/Condition
lisinopril 40 mg tablet 40 mg PO DAILY Blood Pressure 11/20/23 11/20/23 History
nifedipine 30 mg tablet,extended 30 mg PO HS Blood Pressure 11/20/23 11/20/23 History
release 24 hr
ranolazine 500 mg tablet,extended 1,000 mg PO BID Heart 11/20/23 11/20/23 History
release,12 hr Disease/Condition
rosuvastatin 10 mg tablet 10 mg PO DAILY High Cholesterol 11/20/23 11/20/23 History
aspirin 81 mg chewable tablet 81 mg PO DAILY Blood Clot 11/23/23 11/23/23 History
Prevention/Tx
Review of Systems
-
History Source: Patient
General: Reports Fatigue
HEENT: Reports No Symptoms
Respiratory: Reports SOB
Cardiac: Reports Chest Pain (none since 11/21)
Abdomen/GI: Reports No Symptoms
: Reports No Symptoms
Musculoskeletal: Reports No Symptoms
Skin: Reports No Symptoms
Neurological: Reports No Symptoms
Vascular: Reports No Symptoms
Physical Exam
Vital Signs
Temp 97.8 F 11/24/23 07:46
Temp route: Oral 11/24/23 07:46
Pulse 68 11/24/23 11:00
Rhythm: Normal sinus rhythm 11/24/23 07:42
With- Left Bundle Branch Block 11/23/23 20:44
Resp Rate 18 11/24/23 10:30
Blood pressure 113/65 11/24/23 10:30
Blood pressure extremity used: Right upper arm 11/24/23 07:46
Position: Lying 11/24/23 07:46
MAP (cuff-Perfecto Monitor) 82 11/24/23 10:30
SaO2 99 11/24/23 10:30
Nasal Cannula flow liters per minute 4 11/24/23 07:46
Oxygen Mode of Delivery Non-rebreather mask 11/22/23 21:00
Flow liters per minute # 15 11/22/23 21:00
Pulse Ox at Rest 98 11/22/23 14:16
Can the patient verbally communicate their pain? Yes 11/24/23 11:01
Pain scale ratin 11/24/23 11:01
Actual Weight 60 kg 11/24/23 03:46
Body Mass Index (BMI) 25.0 11/24/23 03:46
Supine- Blood Pressure 131/66 11/22/23 14:16
Supine- Pulse 64 11/22/23 14:16
Labs
11/24/23 04:50
11/24/23 04:50
PT 13.5 Sec (11.4-14.6) 11/22/23 20:15
APTT 99.9 Sec (23.4-35.0) H 11/24/23 04:50
Hemoglobin A1c 6.9 % (4.0-5.6) H 11/21/23 06:58
Troponin I 7.190 ng/ml H* 11/23/23 22:34
Hqq-U-Ratogzgaicp Pept 1950 pg/ml 11/22/23 20:15
Arterial Blood Gases
pH 7.33 (7.35-7.45) L 11/22/23 20:29
pCO2 46 mmHg (32-35) H 11/22/23 20:29
pO2 62 mmHg (83-108) L 11/22/23 20:29
HCO3 24.3 mmol/L (21-28) 11/22/23 20:29
Base Excess -1.7 mmol/L 11/22/23 20:29
ABG O2 Sat (Measured) 91.3 % (94-98) L 11/22/23 20:29
O2 Delivery Level 11/22/23 20:29
Urinalysis
Urine Color Cancelled 11/20/23 14:49
Urine Color Yellow 11/20/23 14:49
Urine Clarity Cancelled 11/20/23 14:49
Urine Clarity Clear (Clear) 11/20/23 14:49
Urine pH 6.0 (5.0-9.0) 11/20/23 14:49
Urine pH Cancelled 11/20/23 14:49
Ur Specific [place] 1.010 (<1.030) 11/20/23 14:49
Ur Specific [place] Cancelled 11/20/23 14:49
Urine Ketones Cancelled 11/20/23 14:49
Urine Ketones Negative (Negative) 11/20/23 14:49
Urine Occult Blood Cancelled 11/20/23 14:49
Ur Occult Blood Reflex Negative (Negative) 11/20/23 14:49
Urine Bilirubin Cancelled 11/20/23 14:49
Urine Bilirubin Negative (Negative) 11/20/23 14:49
Ur Leukocyte Esterase Cancelled 11/20/23 14:49
Leukocyte Esterase Rfl Trace (Negative) A 11/20/23 14:49
Urine RBC 0-2 /HPF (0-2) 11/20/23 14:49
Urine WBC (Reflex) 0-2 /HPF (0-5) 11/20/23 14:49
Ur Squamous Epith Cells >30 /LPF (Few) 11/20/23 14:49
Urine Bacteria (Reflex) Few (Negative) A 11/20/23 14:49
Urine Glucose Cancelled 11/20/23 14:49
Urine Glucose Negative (Negative) 11/20/23 14:49
Urine Albumin Cancelled 11/20/23 14:49
Urine Albumin (Reflex) Trace (Neg - Trace) 11/20/23 14:49
Exam
General: Well Developed, Well Nourished, No Apparent Distress and Comfortable
HEENT: Normocephalic, Anicteric, Moist Mucous Membranes, Atraumatic and PERRLA
Neck: Trachea Midline
Respiratory: Clear
Cardiac: S1/S2 and Regular Rhythm
GI: Soft, Non Tender, Non Distended and Normal Bowel Sounds
Rectal: Deferred by Provider
Skin: Warm and Dry
Neuro: AO x 3, No Motor Deficits and Nonfocal/Grossly Intact
Extremities: Pulses (+2/7 B/ DP pulses; TR band on right radial cath site-no bleeding or hematoma)
Lymph: No Lymphadenopathy
Psych: Calm
Assessment / Plan
-
78-year-old female with triple-vessel coronary disease (including in-stent restenosis of prior LCx and RCA stents), mild-moderate MR and HFrEF (30%)
-Last dose of Plavix was 11/23 @ 0830
-Dr. Robins to review imaging and discuss surgery risk-benefit with patient
-If agreeable, plan for CABG on 11/28 to allow for Plavix washout
-pre-op diagnostic orders placed
-creatinine trending down (1.9<2.3<2.8<3)
-trend CBC (Hb 8.7<9.5 on admission)
Data Reviewed
-
EKG: Report Reviewed by me and Discussed with Physician
Boot And Saddle Repair Person: Report Reviewed by me and Discussed with Physician
Echo: Report Reviewed by me and Discussed with Physician
Radiology: Report Reviewed by me and Discussed with Physician
Labs: Labs Reviewed by me and Discussed with Physician
[2023-11-24 12:26] LABS: NT-proBNP 11400 pg/ml
[2023-11-24 13:25] LABS: Glucose - Point of Care 121 mg/dl (70-99)
--- NOTE | 2023-11-24 14:04 | W.PN.NEPH.PH ---
Today's Communication / Plan
-
stop IVF tonight
Assessment/Plan
-
Assessment:
KELLIE on ?CKD
HyperK
Constipation
Weakness
C/f PNA
Plan:
KELLIE- likely in the setting of significant constipation vs. ATN in the setting of recent infection vs. cardiorenal
UA bland and CT abd and renal US with out hydro
- Cr improved to 1.9 today, unclear what baseline is. 1.5?, non oliguric
- NSTEMI s/p cath today with minimal contrast and noted MVD, plan CABG next week after plavix wash out
cotn bicarb IVF PPX complete by tonight
follow labs
d/w pt and family at bedside
-
-
Date of Service: November 24, 2023
CC / HPI / ROS
-
Chief Complaint:
KELLIE
History of Present Illness:
Cr 1.5 --> peak of 3, down to 1.9 today
non oliguric with out pfeiffer
s/p cath today
Review of Systems:
no cp or sob
feels well
Labs
-
Labs:
WBC 9.9 10^3/uL (4.8-10.8) 11/24/23 04:50
RBC 3.05 10^6/uL (4.20-5.40) L 11/24/23 04:50
Hgb 8.7 g/dL (12.0-16.0) L 11/24/23 04:50
Hct 25.8 % (37.0-47.0) L 11/24/23 04:50
Plt Count 348 10^3/uL (130-400) 11/24/23 04:50
Sodium 138 mmol/L (135-145) 11/24/23 04:50
Potassium 3.8 mmol/L (3.5-5.1) 11/24/23 04:50
Chloride 105 mmol/L (98-107) 11/24/23 04:50
Carbon Dioxide 26 mmol/L (22-30) 11/24/23 04:50
BUN 53 mg/dl (7-17) H 11/24/23 04:50
Creatinine 1.9 mg/dL (0.6-1.0) H 11/24/23 04:50
eGFR 26.86 11/24/23 04:50
Glucose 138 mg/dl (70-99) H 11/24/23 04:50
Calcium 9.7 mg/dl (8.4-10.2) 11/24/23 04:50
Iuq-K-Trvexewuqrg Pept 04533 pg/ml 11/24/23 04:50
Albumin 3.5 g/dl (3.5-5.0) 11/24/23 04:50
Physical Exam
-
Vital Signs:
Vital Signs
Temp Pulse Resp BP Pulse Ox
97.8 F 64 18 126/98 100
11/24/23 07:46 11/24/23 12:45 11/24/23 10:30 11/24/23 12:45 11/24/23 12:45
Cardiovascular:: Regular rate and rhythm
Respiratory:: Bilateral: CTA
Lung Excursion:: Normal
Abdomen:: Nontender and Soft
Extremity Edema:: None: Bilateral:
Pfeiffer Catheter: No
--- NOTE | 2023-11-24 15:02 | CM ---
spoke to pt and daughter in room, pt willbe needing CABG next week. disucssed with pt and daughter the need for rehab at time of dc. [facility] like [facility]. referrals to be sent next wk.
[2023-11-24 18:50] LABS: Glucose - Point of Care 103 mg/dl (70-99)
--- NOTE | 2023-11-24 18:56 | PTCARENOTE ---
pt continues to be sr on the monitor, hr in the 70s, vss. pt offers no complaints at this time. pt resting in bed comfortably with family at bedside. pt educated on plan of care and pt verbalized understanding. call dacosta within reach.
--- NOTE | 2023-11-24 19:02 | PTCARENOTE ---
Pt. received at change of shift. Pt. assessed in room. Pt. AOx3. Sitting up comfortably in bed, eating dinner. R radial site checked: c/d/i. Tele reading NSR in the 80s. BP slightly elevated in the 180s/70-80s. Pt. has no complaints at this time.
Continuing to monitor pt at this time.
[2023-11-24] MEDS: PROCARDIA XL (EXTENDED RELEASE) 60 MG PO (21:09)
[2023-11-24] MEDS: NEURONTIN 100 MG PO (21:10)
[2023-11-24 22:51] LABS: Glucose - Point of Care 211 mg/dl (70-99)
[2023-11-25] VITALS (9 sets, daily range): BP systolic 115–176; BP diastolic 61–99; PULSE 72; BMI 25.1
[2023-11-25 04:08] LABS: % Basophils 0.9 % (0-2); % Eosinophils 6.8 % (0-6); % Immature Granulocytes 0.4 % (0-0.5); % Lymphocytes 32.7 % (20.5-51.1); % Monocytes 7.6 % (1.7-9.3); % Neutrophils 51.6 % (42.2-75.2); Absolute Basophils 0.1 10^3/uL (0-0.2); Absolute Eosinophils 0.5 10^3/uL (0-0.7); Absolute Lymphocytes 2.6 10^3/uL (1.2-3.4); Absolute Monocytes 0.6 10^3/uL (0.1-0.6); Hematocrit 26.5 % (37.0-47.0); Hemoglobin 8.9 g/dL (12.0-16.0); Mean Corp Hgb Conc. 33.6 g/dL (33.0-37.0); Mean Corpuscular Hgb 28.4 pg (27.0-31.0); Mean Corpuscular Volume 84.7 fL (81.0-99.0); Mean Platelet Volume 9.7 fL (7.4-10.4); Nucleated Red Blood Cells % 0 %; Platelet Count 332 10^3/uL (130-400); Red Blood Cell Count 3.13 10^6/uL (4.20-5.40); Red Cell Dist. Width 14.8 % (11.5-14.5); White Blood Cell Count 7.8 10^3/uL (4.8-10.8)
[2023-11-25 04:37] LABS: ALT (SGPT) 23 U/L (0-35); AST (SGOT) 43 U/L (14-36); Albumin 3.6 g/dl (3.5-5.0); Alkaline Phosphatase 38 U/L (38-126); Blood Urea Nitrogen 48 mg/dl (7-17); Calcium 9.3 mg/dl (8.4-10.2); Carbon Dioxide 26 mmol/L (22-30); Chloride 104 mmol/L (98-107); Estimated Creatinine Clearance 21 ml/min; Glucose 135 mg/dl (70-99); Magnesium 1.9 mg/dl (1.6-2.3); Potassium 3.9 mmol/L (3.5-5.1); Sodium 138 mmol/L (135-145); Total Bilirubin 0.7 mg/dl (0.2-1.3); Total Protein 6.4 g/dl (6.3-8.2)
[2023-11-25 04:44] LABS: INR 1.1; PT 14.2 Sec (11.4-14.6)
[2023-11-25 07:44] LABS: Glucose - Point of Care 137 mg/dl (70-99)
--- NOTE | 2023-11-25 07:51 | W.PN.HOSP.TC ---
Today's Communication/Plan
-
Pending CABG
Assessment / Plan
Assessment / Plan
78yo F with PMHx of HtN, DM, HLD, tacotsubo CM, recent admission with intubation to [facility] managed for HFpEF exacerbation, tacotsubo CM and pneumonia, discharged home but had gradually worsening weakness. Admitted with malaise and
worsening KELLIE, found constipation with fecal impaction. Later found concern for RLL so Abx started. In th evening of 11/22/23 had episode of significant chest pain, later found with elevated troponin and hypertension, found NSTEMI and 3-vessel
disease on cardiac cath, pending CABG
Accidental findings of pulmonary and thyroid nodules to be followed as outpatient
A/P:
#NSTEMI
#CAD s/p PCI
#LBBB
#Acute hypoxic insufficiency
#HTN emergency with Hx of Essential HTN
#Chronic HFmrEF
#Takotsubo CM
was on DAPT, plavix held in anticipation of CABG on 11/29/23
Heparin drip completed
Echo showed EF 35-40% with global hypokinesis
Cardiology follows: Cardiac cath complicated by presence of KELLIE on CKD. Accomplished on 11/24/23 and found 3 vessel disease. CTS involved
Nitro drip completed, follow BP trend
#Worsening weakness, most likely deconditioning 2/2 recent hospitalization
PT/OT eval
TSH, cortisol AM WNL
No signs of UTI on UA
Head CT without significant acute findings
#L foot pain
suspect DJD
XR neg for acute findings
cont tylenol
#Concern for RLL pneumonia on XR with unspecified organism
Unclear if new findings
Bcx neg to date
started empiric Rocephin/DOxy that broadened to Vanco/Zosyn on 11/23/23, however wi
#Subcentimeter lung nodules
LUE, L lateral and RUL
Follow up with pulm for repeated CT chest in 3-6 months after d/c - family verbalized understanding
#1.4 thyroid nodule
TSH WNL
Outpatient US thyroid and further mgmt by endo, referral to be provided upon d/c - family verbalized understanding
#Fecal impaction
resolved with Enema
#KELLIE, multifactorial
as per review of previous records -Cr jumped up from 1.8-19 to 2.5 and then 3.0
IVF trial - Cr improved from 3.0 to 1.9
FeNa 2.6
US renal without signs of hydronephrosis
Nephrology consult: cont mild hydration
IVF
follow Cr
#DM type 2 with unspecified complications
Insulin SS, DM diet
#Anemia, stable
no deficiency noted
No overt bleeding
follow CBC
Outpatient follow up
#Transaminitis
resolved
#2cm L renal simple cyst
#Umbilical hernia
#DJD
follow with PCP upon d/c
#Foot pain
XR showed DJD
#Hypomagnesemia
repleted
DVT ppx hep
FUll code
I have spent at least 36min reviewing chart, test results, communication with consultants and family and direct patient care
Anticipated Discharge: > 48 hours
Subjective/Interval History
-
Date of Service: November 25, 2023
Objective Data
-
Labs:
Laboratory Results
11/24/23 11/25/23
12:09 03:58
WBC 7.8
Hgb 8.9 L
Hct 26.5 L
Plt Count 332
PT 14.2
INR 1.1
APTT Cancelled 21.0 L
Sodium 138
Potassium 3.9
Chloride 104
Carbon Dioxide 26
BUN 48 H
Creatinine 1.7 H
Glucose 135 H
Calcium 9.3
Total Bilirubin 0.7
AST 43 H
ALT 23
Alkaline Phosphatase 38
Vital Signs:
Vital Signs
Temp Pulse Resp BP Pulse Ox
98.6 F 69 16 115/61 100
11/25/23 07:34 11/25/23 07:34 11/25/23 07:34 11/25/23 03:42 11/25/23 07:34
I&O
11/24/23 11/25/23 11/26/23
06:59 06:59 06:59
Intake Total 1561.0 / 1561.0 150 / 150
Output Total 1949 / 1949 75 75
Balance -389.0 / -389.0
Review of Systems
-
All other systems: Reviewed and negative
Musculoskeletal: Reports Joint Pain (L metatarsal joints)
Physical Exam
-
General: No Apparent Distress
HEENT: Normocephalic and Atraumatic
Respiratory: Clear to Auscultation
Cardiac: Regular Rhythm
GI: Soft, Nontender and Nondistended
Musculoskeletal: No Clubbing, No Cyanosis and No Edema
Skin: Warm
Neuro: Awake, Alert, Oriented and AO x 3
Psych: Calm
[2023-11-25] MEDS: COREG 25 MG PO ×2 (08:07→19:38)
[2023-11-25] MEDS: CRESTOR 10 MG PO (08:07)
[2023-11-25] MEDS: TYLENOL 650 MG PO ×2 (08:07→22:11)
[2023-11-25] MEDS: ASPIR LOW (ENTERIC COATED) 81 MG PO (08:07)
[2023-11-25] MEDS: NOVOLOG FLEXPEN-LOW RESISTANCE SC ×2 (09:02→17:57)
--- NOTE | 2023-11-25 09:24 | PTCARENOTE ---
pt continues to be sr on the monitor, hr in 60s, vss. pt denies pain at this time. pt oob to chair and tolerating well. pt educated on plan of care and pt verbalized understanding. call dacosta within reach.
--- NOTE | 2023-11-25 10:42 | W.PN.CD ---
Today's Communication / Plan
-
Cath yesterday with multivessel coronary artery disease will await CT surgery evaluation. Patient otherwise stable overnight with no angina. Continue with medical therapy.
Plavix discontinued as patient is being evaluated for CABG.
Continue aspirin
Monitor renal function post cath
Impression / Plan
-
BACKGROUND: 78F with CAD, last stent 2018, ICM EF 40%, chronic systolic HF, NIDDM, HTN, HLD, and CKD3 with recent hospitalization at [facility] with HTN emergency, pulm edema, requiring intubation and diagnosis of possible Takotsubo CM presents with
weakness. She did not undergo cath. She was discharged home, and then presented to with weakness on 11/19. She was found to have an KELLIE and a mildly elevated troponin. Echo 11/19 showed EF 35-40%, global HK, mild/mod MR, nl RV, mild TR, PASP 35.
Then, on evening of 11/21, had episode of chest pain, which appears to be in setting of NSTEMI. She was reloaded with ASA, continued on Plavix; and started on heparin and nitro drips.
NSTEMI
-currently chest pain free with med mgmt
-EKG with chronic LBBB
-peak trop 7.36
-Cath with multivessel CAD. Await CT surgery evaluation. Continue aspirin and hold Plavix
.
ICM EF 30%
-down from 35-40%, with worsening lateral/inferolateral regional wall motion
-plan for cath today
-continue coreg
-other GDMT limited by renal function: after cath, once we wean nitro drip, can do imdur/hydralazine
KELLIE on CKD3b
-family reports b/l Cr of 1.4; was 3 on admit, and now trending down to 1.9 today
-nephrology is managing/optimizing for cath
CAD
-PCI to RCA, LAD, and Circ in past; last 2018
-Cath with multivessel disease this admission. CT surgery evaluation in progress
HTN
-She had HTN Urgency at prior hospitalization, which was believed to prompt pulmonary edema
-meds limited by KELLIE on CKD
-continue coreg: increase to 25mg bid
-continue nifedipine 60mg daily
-Continue nitrates
Type II DM
Anemia, likely of chronic disease, denies abnormal bleeding
Physical Exam
Vital Signs/Labs
Vital Signs
Temp Pulse Resp BP Pulse Ox
98.6 F 71 16 135/65 100
11/25/23 07:34 11/25/23 09:00 11/25/23 07:34 11/25/23 08:07 11/25/23 07:34
11/24/23 11/25/23 11/26/23
06:59 06:59 06:59
Actual Weight 60 kg 60.2 kg
11/25/23 03:58
11/25/23 03:58
PT 14.2 Sec (11.4-14.6) 11/25/23 03:58
INR 1.1 11/25/23 03:58
APTT 21.0 Sec (23.4-35.0) L 11/25/23 03:58
Magnesium 1.9 mg/dl (1.6-2.3) 11/25/23 03:58
Triglycerides 113 mg/dl (10-149) 11/24/23 04:50
LDL Cholesterol, Calc 63 mg/dl 11/24/23 04:50
VLDL Cholesterol, Calc 22 mg/dl (0-30) 11/24/23 04:50
HDL Cholesterol 44 mg/dl 11/24/23 04:50
11/20/23 11/22/23 11/24/23
07:36 20:15 04:50
Imo-D-Hgfkqqmxhcc Pept 1140 1950 [id number]
LAB Results
11/22/23 11/23/23 11/23/23
20:15 04:48 14:56
Troponin I 0.035 H* 5.440 H* 7.360 H*
11/23/23 11/23/23
15:02 22:34
Troponin I Cancelled 7.190 H*
Physical Exam
Constitutional: No acute distress
Cardiovascular: Rhythm & rate is regular
Respiratory: Respiratory effort normal
GI: Soft
Neuro/Psych: Alert
Other: Other (Radial cath site is fine)
Data Reviewed
-
Date of Service: November 25, 2023
Medical Decision Making: Review of Case with other Provider
Medical Tests (PFT, Pathology etc): Report Reviewed by me
Labs: Labs Reviewed by me
[2023-11-25 12:12] LABS: Glucose - Point of Care 177 mg/dl (70-99)
--- NOTE | 2023-11-25 12:14 | W.PN.NEPH.PH ---
Today's Communication / Plan
-
follow labs
Assessment/Plan
-
Assessment:
KELLIE on ?CKD
HyperK
Constipation
Weakness
C/f PNA
Plan:
KELLIE- improving cr down to 1.[address] abd and renal US with out hydro
NSTEMI s/p cath 11/23 with minimal contrast and noted MVD, plan CABG next week after plavix wash out
BP stble
bowel regimen for constipation , monitor UOP
follow labs
d/w pt and family at bedside
-
-
Date of Service: November 25, 2023
CC / HPI / ROS
-
Chief Complaint:
KELLIE
History of Present Illness:
Cr 1.5 --> peak of 3, down to 1.7 today
non oliguric with out pfeiffer
BP stable, no fever
Review of Systems:
no cp or sob
feels well
Labs
-
Labs:
WBC 7.8 10^3/uL (4.8-10.8) 11/25/23 03:58
RBC 3.13 10^6/uL (4.20-5.40) L 11/25/23 03:58
Hgb 8.9 g/dL (12.0-16.0) L 11/25/23 03:58
Hct 26.5 % (37.0-47.0) L 11/25/23 03:58
Plt Count 332 10^3/uL (130-400) 11/25/23 03:58
Sodium 138 mmol/L (135-145) 11/25/23 03:58
Potassium 3.9 mmol/L (3.5-5.1) 11/25/23 03:58
Chloride 104 mmol/L (98-107) 11/25/23 03:58
Carbon Dioxide 26 mmol/L (22-30) 11/25/23 03:58
BUN 48 mg/dl (7-17) H 11/25/23 03:58
Creatinine 1.7 mg/dL (0.6-1.0) H 11/25/23 03:58
eGFR 30.70 11/25/23 03:58
Glucose 135 mg/dl (70-99) H 11/25/23 03:58
Calcium 9.3 mg/dl (8.4-10.2) 11/25/23 03:58
Jfm-B-Wddtgkcjtos Pept 93847 pg/ml 11/24/23 04:50
Albumin 3.6 g/dl (3.5-5.0) 11/25/23 03:58
Physical Exam
-
Vital Signs:
Vital Signs
Temp Pulse Resp BP Pulse Ox
98.7 F 70 16 135/65 100
11/25/23 11:44 11/25/23 11:44 11/25/23 11:44 11/25/23 08:07 11/25/23 11:44
Cardiovascular:: Regular rate and rhythm
Respiratory:: Bilateral: CTA (decreased)
Lung Excursion:: Normal
Abdomen:: Nontender and Soft
Extremity Edema:: None: Bilateral:
Pfeiffer Catheter: No
[2023-11-25] MEDS: NOVOLOG FLEXPEN-LOW RESISTANCE 1 UNITS SC (12:16)
[2023-11-25] MEDS: SENOKOT-S 1 TABLET PO (15:27)
[2023-11-25 17:15] LABS: Glucose - Point of Care 133 mg/dl (70-99)
--- NOTE | 2023-11-25 17:54 | PTCARENOTE ---
pt continues to be sr on the monitor, hr in the 70s, vss. pt c/o not having a bm, stool softener given as ordered, see MAR. Pt has been OOB to the chair for most of the day. pt educated on plan of care for the day and pt verbalized understanding.
call dacosta within reach.
[2023-11-25 22:07] LABS: Glucose - Point of Care 138 mg/dl (70-99)
[2023-11-25] MEDS: PROCARDIA XL (EXTENDED RELEASE) 60 MG PO (22:10)
[2023-11-25] MEDS: NEURONTIN 100 MG PO (22:10)
--- NOTE | 2023-11-26 00:58 | PTCARENOTE ---
received pt at change of shift. POC discussed- pt and family verbalized understanding. No complaints of cp. she remains in 2L NC SPO2- 100%. SR w/ BBB on the monitor. HR 60-70s. BP elevated at change of shift- but lowered after 2200 medications.
Ambulating with RW and stand by assistance.
[2023-11-26 04:49] VITALS: BP 116/61
--- NOTE | 2023-11-26 05:12 | PTCARENOTE ---
lab draws attempted x2 pt dgt requesting phlebotomy to draw blood.
[2023-11-26 06:00] VITALS: BMI 25.5
[2023-11-26] MEDS: TYLENOL 650 MG PO ×2 (07:15→21:32)
[2023-11-26 07:16] VITALS: BP 124/67
[2023-11-26] MEDS: CRESTOR 10 MG PO (07:16)
[2023-11-26] MEDS: ASPIR LOW (ENTERIC COATED) 81 MG PO (07:16)
[2023-11-26] MEDS: COREG 25 MG PO ×2 (07:17→19:45)
--- NOTE | 2023-11-26 07:33 | W.PN.HOSP.TC ---
Today's Communication/Plan
-
Miralax
pending CABG
Assessment / Plan
Assessment / Plan
78yo F with PMHx of HtN, DM, HLD, tacotsubo CM, recent admission with intubation to [facility] managed for HFpEF exacerbation, tacotsubo CM and pneumonia, discharged home but had gradually worsening weakness. Admitted with malaise and
worsening KELLIE, found constipation with fecal impaction. Later found concern for RLL so Abx started. In evening of 11/22/23 had episode of significant chest pain, later found with elevated troponin and hypertension, found NSTEMI and 3-vessel
disease on cardiac cath, pending CABG
Accidental findings of pulmonary and thyroid nodules to be followed as outpatient
A/P:
#NSTEMI
#CAD s/p PCI
#LBBB
#Acute hypoxic insufficiency
#HTN emergency with Hx of Essential HTN
#Chronic HFmrEF
#Takotsubo CM
was on DAPT, plavix held in anticipation of CABG on 11/29/23
Heparin drip completed
Echo showed EF 35-40% with global hypokinesis
Cardiology follows: Cardiac cath complicated by presence of KELLIE on CKD. Accomplished on 11/24/23 and found 3 vessel disease. CTS involved
Nitro drip completed, follow BP trend
#Worsening weakness, most likely deconditioning 2/2 recent hospitalization
PT/OT eval
TSH, cortisol AM WNL
No signs of UTI on UA
Head CT without significant acute findings
#L foot pain
suspect DJD
XR neg for acute findings
cont Tylenol
#Concern for RLL pneumonia on XR with unspecified organism, ruled out
Unclear if new findings
Bcx neg to date
started empiric Rocephin/Doxy that broadened to Vanco/Zosyn on 11/23/23, later stopped with agreement with Computer Bookkeeper due to low suspiscion of infection
#Subcentimeter lung nodules
LUE, L lateral and RUL
Follow up with pulm for repeated CT chest in 3-6 months after d/c - family verbalized understanding
#1.4 thyroid nodule
TSH WNL
Outpatient US thyroid and further mgmt by endo, referral to be provided upon d/c - family verbalized understanding
#Fecal impaction with constipation
resolved with Enema
Laxatives
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
as per review of previous records -Cr jumped up from 1.8-19 to 2.5 and then 3.0
IVF trial - Cr improved from 3.0 to 1.9
FeNa 2.6
US renal without signs of hydronephrosis
Nephrology consult: resolved on mild hydration
IVF
follow Cr
#DM type 2 with unspecified complications
Insulin SS, DM diet
#Anemia, stable
no deficiency noted
No overt bleeding
follow CBC
Outpatient follow up
#Transaminitis
resolved
#2cm L renal simple cyst
#Umbilical hernia
#DJD
follow with PCP upon d/c
#Foot pain
XR showed DJD
#Hypomagnesemia
repleted
DVT ppx hep
FUll code
I have spent at least 36min reviewing chart, test results, communication with consultants and family and direct patient care
Anticipated Discharge: > 48 hours
Subjective/Interval History
-
Date of Service: November 26, 2023
Objective Data
-
Labs:
Laboratory Results
11/26/23
06:00
WBC Pending
Hgb Pending
Hct Pending
Plt Count Pending
Sodium Pending
Potassium Pending
Chloride Pending
Carbon Dioxide Pending
BUN Pending
Creatinine Pending
Glucose Pending
Calcium Pending
Total Bilirubin Pending
AST Pending
ALT Pending
Alkaline Phosphatase Pending
Vital Signs:
Vital Signs
Temp Pulse Resp BP Pulse Ox
98.3 F 67 18 124/67 100
11/26/23 05:11 11/26/23 07:17 11/26/23 05:11 11/26/23 07:17 11/26/23 05:11
I&O
11/25/23 11/26/23 11/27/23
06:59 06:59 06:59
Intake Total 150 / 150 720 / 720
Output Total 75 / 75 100 / 100
Balance 75 / 75 620 / 620
Review of Systems
-
Abdomen/GI: Reports Constipated
Physical Exam
-
General: No Apparent Distress
HEENT: Normocephalic, Atraumatic and Moist Mucous Membranes
Respiratory: Clear to Auscultation
Cardiac: Regular Rhythm
GI: Soft, Nontender and Nondistended
Genito-urinary: No Costovertebral Tender
Musculoskeletal: No Clubbing, No Cyanosis and No Edema
Skin: Warm
Neuro: Awake, Alert, Oriented and AO x 3
Psych: Calm
[2023-11-26 08:02] LABS: Glucose - Point of Care 150 mg/dl (70-99)
[2023-11-26] MEDS: MIRALAX 17 GRAMS PO (08:19)
[2023-11-26] MEDS: NOVOLOG FLEXPEN-LOW RESISTANCE 1 UNITS SC ×2 (08:20→17:26)
--- NOTE | 2023-11-26 08:45 | PTCARENOTE ---
Assumed care of pt from prev nsg shift; Pt AAOx3 w/no c/o CP or SOB. Pt is c/o 4/10 L foot pain this AM. Pt rec'd PRN PO Tylenol from prev nsg shift at 0715. Pt declined anything additional for pain at this time. Pt repositioned for comfort. Pt's VS
stable w/HR in the 60's, BP 124/67. Pt's daughter at bedside requesting pt's labs be drawn by phlebotomy. This RN explained to pt & her daughter that we currently do not have a field operations coordinator director industrial relations this AM. Pt & daughter refusing to allow this RN to
attempt lab draw at this time. This RN reached out to director industrial relations VAT team & spoke w/PRN ROBERT Arambula, who will be in to attempt draw this AM. Pt w/kelsey dacosta within reach & plan of care ongoing.
--- NOTE | 2023-11-26 09:10 | W.PN.CD ---
Today's Communication / Plan
-
Continue evaluation by CT surgery for CABG.
Monitor renal function which has been improving and creatinine 1.7
Patient remains on 2 L wean as tolerated. Few fine crackles at bases last CT also had some small effusions. If patient continues to require O2 could consider additional use of diuretic. But currently holding off at renal function improving.
Nephrology following.
Impression / Plan
-
BACKGROUND: 78F with CAD, last stent 2018, ICM EF 40%, chronic systolic HF, NIDDM, HTN, HLD, and CKD3 with recent hospitalization at [facility] with HTN emergency, pulm edema, requiring intubation and diagnosis of possible Takotsubo CM presents with
weakness. She did not undergo cath. She was discharged home, and then presented to with weakness on 11/19. She was found to have an KELLIE and a mildly elevated troponin. Echo 11/19 showed EF 35-40%, global HK, mild/mod MR, nl RV, mild TR, PASP 35.
Then, on evening of 11/21, had episode of chest pain, which appears to be in setting of NSTEMI. She was reloaded with ASA, continued on Plavix; and started on heparin and nitro drips.
NSTEMI
-currently chest pain free with med mgmt
-EKG with chronic LBBB
-peak trop 7.36
-Cath with multivessel CAD. Await CT surgery evaluation. Continue aspirin and hold Plavix
.
ICM EF 30%
-down from 35-40%, with worsening lateral/inferolateral regional wall motion
-Cath with multivessel coronary disease being evaluated for CABG.
-continue coreg, imdur and hydralazine
-other GDMT limited by renal function:
-On 2 L we will try to wean off. Few fine crackles. Last CT had some small effusions. If patient still requiring O2 may consider some additional diuretic but would also get input from nephrology
KELLIE on CKD3b
-family reports b/l Cr of 1.4; was 3 on admit, and now trending down to 1.7 today
-nephrology is managing/optimizing for cath
CAD
-PCI to RCA, LAD, and Circ in past; last 2018
-Cath with multivessel disease this admission. CT surgery evaluation in progress
HTN
-She had HTN Urgency at prior hospitalization, which was believed to prompt pulmonary edema
-meds limited by KELLIE on CKD
-continue coreg: increase to 25mg bid
-continue nifedipine 60mg daily
-Continue nitrates
Type II DM
Anemia, likely of chronic disease, denies abnormal bleeding
Physical Exam
Vital Signs/Labs
Vital Signs
Temp Pulse Resp BP Pulse Ox
98.6 F 68 20 124/67 99
11/26/23 08:09 11/26/23 08:09 11/26/23 08:09 11/26/23 07:17 11/26/23 08:09
11/25/23 11/26/23 11/27/23
06:59 06:59 06:59
Actual Weight 60.2 kg 61.3 kg
PT 14.2 Sec (11.4-14.6) 11/25/23 03:58
INR 1.1 11/25/23 03:58
APTT 21.0 Sec (23.4-35.0) L 11/25/23 03:58
Magnesium 1.9 mg/dl (1.6-2.3) 11/25/23 03:58
Triglycerides 113 mg/dl (10-149) 11/24/23 04:50
LDL Cholesterol, Calc 63 mg/dl 11/24/23 04:50
VLDL Cholesterol, Calc 22 mg/dl (0-30) 11/24/23 04:50
HDL Cholesterol 44 mg/dl 11/24/23 04:50
11/20/23 11/22/23 11/24/23
07:36 20:15 04:50
Bhz-C-Ambqpfprbhf Pept 1140 1950 [id number]
LAB Results
0711/23/23 11/23/23
14:56 15:02 22:34
Troponin I 7.360 H* Cancelled 7.190 H*
Physical Exam
Constitutional: No acute distress
Cardiovascular: Rhythm & rate is regular
Respiratory: Respiratory effort normal
GI: Soft
Neuro/Psych: Alert
Data Reviewed
-
Date of Service: November 26, 2023
Medical Decision Making: Reviewed Test Results
Echo: Report Reviewed by me
Medical Tests (PFT, Pathology etc): Report Reviewed by me
Labs: Labs Reviewed by me
[2023-11-26 12:23] VITALS: BP 104/75
[2023-11-26] MEDS: IMDUR (EXTENDED RELEASE) 30 MG PO (12:24)
[2023-11-26] MEDS: NOVOLOG FLEXPEN-LOW RESISTANCE SC (12:58)
--- NOTE | 2023-11-26 13:46 | W.PN.NEPH.PH ---
Today's Communication / Plan
-
follow labs
no IVF
Assessment/Plan
-
Assessment:
KELLIE on ?CKD
HyperK
Constipation
Weakness
C/f PNA
Plan:
KELLIE- improving cr down to 1.7, no labs today
UA bland and CT abd and renal US with out hydro
NSTEMI s/p cath 11/23 with minimal contrast and noted MVD, plan CABG next week after plavix wash out
BP stble
bowel regimen for constipation , monitor UOP
ok for lasix if needed, follow wts and O2 needs
follow labs
d/w pt and family at bedside
-
-
Date of Service: November 26, 2023
CC / HPI / ROS
-
Chief Complaint:
KELLIE
History of Present Illness:
Cr 1.5 --> peak of 3, down to 1.7 , no labs today
non oliguric with out pfeiffer
BP stable, no fever
Review of Systems:
no cp or sob
feels well
small Bm but not complete
wt is up
Labs
-
Labs:
eGFR 30.70 11/25/23 03:58
Hoc-W-Bqakpvkxjtr Pept 31587 pg/ml 11/24/23 04:50
Physical Exam
-
Vital Signs:
Vital Signs
Temp Pulse Resp BP Pulse Ox
98.5 F 68 20 104/75 100
11/26/23 12:25 11/26/23 12:23 11/26/23 12:25 11/26/23 12:23 11/26/23 12:25
Cardiovascular:: Regular rate and rhythm
Respiratory:: Bilateral: CTA (decreased)
Lung Excursion:: Normal
Abdomen:: Nontender and Soft
Extremity Edema:: None: Bilateral:
Pfeiffer Catheter: No
--- NOTE | 2023-11-26 14:15 | PTCARENOTE ---
Pt's AM labs unable to be drawn today; 4 attempts were made to obtain them, including having PRN RN/IV team attempt. The pt & daughter are now refusing to let us attempt again. This pt is a difficult stick & unable to draw blood from her peripheral
IV lines as well. This RN asked pt to drink some fluids for us & we'd reassess how her veins look after, but the daughter stated she wants a operation specialist to draw the labs. This RN confirmed w/the nursing burning supervisor & unfortunately there is no one
from phlebotomy available. There are PRN nurses covering today. Pt & daughter continue to refuse blood draw. This RN advised the CT surgery PA & nephrology when they came to see pt. They both stated we can reattempt in the AM. Hospitalist notified
via TT & lab orders for today, 11/26/23 D/C'd. Plan of care ongoing.
[2023-11-26 16:29] VITALS: BP 137/73
[2023-11-26 17:25] LABS: Glucose - Point of Care 166 mg/dl (70-99)
--- NOTE | 2023-11-26 17:43 | PTCARENOTE ---
Pt assisted to BR this afternoon, after having Miralax PO x 1 dose this AM & drinking a large glass of prune juice at lunch pt able to have a large, formed BM this afternoon. Pt reported 'feeling much better' & no longer feeling 'bloated'.
[2023-11-26 19:43] VITALS: BP 137/65
[2023-11-26] MEDS: PROCARDIA XL (EXTENDED RELEASE) 60 MG PO (21:33)
[2023-11-26] MEDS: NEURONTIN 100 MG PO (21:33)
[2023-11-26 22:25] VITALS: BP 150/68
[2023-11-26 22:27] LABS: Glucose - Point of Care 186 mg/dl (70-99)
[2023-11-27] VITALS (12 sets, daily range): BP systolic 112–163; BP diastolic 59–78; PULSE 65; O2SAT 97; BMI 25.5
[2023-11-27] MEDS: TYLENOL 650 MG PO ×3 (05:47→20:38)
[2023-11-27 06:16] LABS: % Basophils 0.7 % (0-2); % Immature Granulocytes 0.5 % (0-0.5); % Lymphocytes 37.9 % (20.5-51.1); % Monocytes 6.7 % (1.7-9.3); % Neutrophils 48.2 % (42.2-75.2); Absolute Basophils 0.1 10^3/uL (0-0.2); Absolute Eosinophils 0.5 10^3/uL (0-0.7); Absolute Lymphocytes 3.3 10^3/uL (1.2-3.4); Absolute Monocytes 0.6 10^3/uL (0.1-0.6); Absolute Neutrophils 4.2 10^3/uL (1.4-6.5); Hematocrit 26.9 % (37.0-47.0); Hemoglobin 8.9 g/dL (12.0-16.0); Mean Corp Hgb Conc. 33.1 g/dL (33.0-37.0); Mean Corpuscular Hgb 28.3 pg (27.0-31.0); Mean Corpuscular Volume 85.4 fL (81.0-99.0); Nucleated Red Blood Cells % 0 %; Platelet Count 319 10^3/uL (130-400); Red Blood Cell Count 3.15 10^6/uL (4.20-5.40); Red Cell Dist. Width 14.8 % (11.5-14.5); White Blood Cell Count 8.7 10^3/uL (4.8-10.8)
[2023-11-27 06:34] LABS: ALT (SGPT) 23 U/L (0-35); AST (SGOT) 33 U/L (14-36); Albumin 3.6 g/dl (3.5-5.0); Alkaline Phosphatase 47 U/L (38-126); Blood Urea Nitrogen 48 mg/dl (7-17); Calcium 9.9 mg/dl (8.4-10.2); Carbon Dioxide 27 mmol/L (22-30); Chloride 105 mmol/L (98-107); Estimated Creatinine Clearance 20 ml/min; Glucose 138 mg/dl (70-99); Magnesium 1.9 mg/dl (1.6-2.3); Sodium 139 mmol/L (135-145); Total Bilirubin 0.4 mg/dl (0.2-1.3); Total Protein 6.4 g/dl (6.3-8.2); eGFR 28.66
--- NOTE | 2023-11-27 07:03 | W.PN.CD ---
Today's Communication / Plan
-
Awaiting plavix washout then CABG
Impression / Plan
-
BACKGROUND: 78F with CAD, last stent 2018, ICM EF 40%, chronic systolic HF, NIDDM, HTN, HLD, and CKD3 with recent hospitalization at [facility] with HTN emergency, pulm edema, requiring intubation and diagnosis of possible Takotsubo CM presents with
weakness. She did not undergo cath. She was discharged home, and then presented to with weakness on 11/19. She was found to have an KELLIE and a mildly elevated troponin. Echo 11/19 showed EF 35-40%, global HK, mild/mod MR, nl RV, mild TR, PASP 35.
Then, on evening of 11/21, had episode of chest pain, which appears to be in setting of NSTEMI. She was reloaded with ASA, continued on Plavix; and started on heparin and nitro drips.
NSTEMI
-currently chest pain free with med mgmt
-EKG with chronic LBBB
-peak trop 7.36
-Cath with multivessel CAD. She is waiting for CABG while Plavix washes out.
.
ICM EF 30%
-down from 35-40%, with worsening lateral/inferolateral regional wall motion
-Cath with multivessel coronary disease being evaluated for CABG.
-continue coreg, imdur and hydralazine
-other GDMT limited by renal function:
-
KELLIE on CKD3b
-family reports b/l Cr of 1.4; was 3 on admit, and now stable 1.8 today
-nephrology is managing/optimizing for cath
CAD
-PCI to RCA, LAD, and Circ in past; last 2018
-Cath with multivessel disease this admission. CT surgery evaluation in progress
HTN
-She had HTN Urgency at prior hospitalization, which was believed to prompt pulmonary edema
-meds limited by KELLIE on CKD
-continue coreg: increase to 25mg bid
-continue nifedipine 60mg daily
-Continue nitrates
Type II DM
Anemia, likely of chronic disease, denies abnormal bleeding
Physical Exam
Vital Signs/Labs
Vital Signs
Temp Pulse Resp BP Pulse Ox
98.5 F 61 15 116/59 100
11/27/23 04:00 11/27/23 04:48 11/27/23 04:00 11/27/23 04:48 11/27/23 04:00
11/26/23 11/27/23 11/28/23
06:59 06:59 06:59
Actual Weight 135 lb 2.294 oz 135 lb 2.294 oz
11/27/23 05:59
11/27/23 05:59
PT 14.2 Sec (11.4-14.6) 11/25/23 03:58
INR 1.1 11/25/23 03:58
APTT 21.0 Sec (23.4-35.0) L 11/25/23 03:58
Magnesium 1.9 mg/dl (1.6-2.3) 11/27/23 05:59
Triglycerides 113 mg/dl (10-149) 11/24/23 04:50
LDL Cholesterol, Calc 63 mg/dl 11/24/23 04:50
VLDL Cholesterol, Calc 22 mg/dl (0-30) 11/24/23 04:50
HDL Cholesterol 44 mg/dl 11/24/23 04:50
11/20/23 11/22/23 11/24/23
07:36 20:15 04:50
Oul-O-Dybkyjdooux Pept 1140 1950 [id number]
Physical Exam
Cardiovascular: Rhythm & rate is regular, Systolic murmur present (soft systolic murmur LSB) and S1S2 is normal
Respiratory: Respiratory effort normal and Lungs clear to auscul.
GI: Soft and Non tender
Neuro/Psych: AO x 3 and Motor deficits absent
Data Reviewed
-
Date of Service: November 27, 2023
[2023-11-27 07:15] LABS: Glucose - Point of Care 163 mg/dl (70-99)
[2023-11-27] MEDS: ASPIR LOW (ENTERIC COATED) 81 MG PO (09:21)
[2023-11-27] MEDS: COREG 25 MG PO ×2 (09:21→20:35)
[2023-11-27] MEDS: CRESTOR 10 MG PO (09:21)
[2023-11-27] MEDS: IMDUR (EXTENDED RELEASE) 30 MG PO (09:22)
[2023-11-27] MEDS: MIRALAX PO (09:22)
--- NOTE | 2023-11-27 09:32 | W.PN.UPDATE ---
Update Note
Progress Note Update
ac Surgery
Procedure Type:�Isolated CABG
PERIOPERATIVE OUTCOME ESTIMATE %
Operative Mortality 4.4%
Morbidity & Mortality 18.2%
Stroke 1.35%
Renal Failure 9.19%
Reoperation 4.66%
Prolonged Ventilation 8.28%
Deep Sternal Wound Infection 0.244%
Long Hospital Stay (>14 days) 14.2%
Short Hospital Stay (<6 days) 15.6%
--- NOTE | 2023-11-27 09:36 | W.PN.NEPH.PH ---
Today's Communication / Plan
-
follow bmp
Assessment/Plan
-
Assessment:
KELLIE on ?CKD
HyperK
Constipation
Weakness
C/f PNA
Plan:
KELLIE-at 1.[address] abd and renal US with out hydro
NSTEMI s/p cath 11/23 with minimal contrast and noted MVD, plan CABG next week after plavix wash out
BP stable
bowel regimen for constipation , monitor UOP
ok for lasix if needed, follow wts and O2 needs, weight stable
follow labs
-
-
Date of Service: November 27, 2023
CC / HPI / ROS
-
Chief Complaint:
KELLIE
History of Present Illness:
Cr 1.5 --> peak of 3, down to 1.7 , no labs today
non oliguric with out pfeiffer
BP stable, no fever
Review of Systems:
no cp or sob
feels well
small Bm but not complete
wt is up
Labs
-
Labs:
WBC 8.7 10^3/uL (4.8-10.8) 11/27/23 05:59
RBC 3.15 10^6/uL (4.20-5.40) L 11/27/23 05:59
Hgb 8.9 g/dL (12.0-16.0) L 11/27/23 05:59
Hct 26.9 % (37.0-47.0) L 11/27/23 05:59
Plt Count 319 10^3/uL (130-400) 11/27/23 05:59
Sodium 139 mmol/L (135-145) 11/27/23 05:59
Potassium 4.0 mmol/L (3.5-5.1) 11/27/23 05:59
Chloride 105 mmol/L (98-107) 11/27/23 05:59
Carbon Dioxide 27 mmol/L (22-30) 11/27/23 05:59
BUN 48 mg/dl (7-17) H 11/27/23 05:59
Creatinine 1.8 mg/dL (0.6-1.0) H 11/27/23 05:59
eGFR 28.66 11/27/23 05:59
Glucose 138 mg/dl (70-99) H 11/27/23 05:59
Calcium 9.9 mg/dl (8.4-10.2) 11/27/23 05:59
Job-G-Gwcjseytonr Pept 31862 pg/ml 11/24/23 04:50
Albumin 3.6 g/dl (3.5-5.0) 11/27/23 05:59
Physical Exam
-
Vital Signs:
Vital Signs
Temp Pulse Resp BP Pulse Ox
97.9 F 65 16 139/67 99
11/27/23 07:10 11/27/23 09:21 11/27/23 07:20 11/27/23 09:21 11/27/23 09:13
Cardiovascular:: Regular rate and rhythm
Respiratory:: Bilateral: CTA (decreased)
Lung Excursion:: Normal
Abdomen:: Nontender and Soft
Extremity Edema:: None: Bilateral:
Pfeiffer Catheter: No
[2023-11-27] MEDS: NOVOLOG FLEXPEN-LOW RESISTANCE SC ×3 (09:52→11:01)
--- NOTE | 2023-11-27 09:56 | PTCARENOTE ---
Patient received from rod welder resting in bed, sleepy but arousable and appropriate, denies pain. Daughter at bedside. NSR via cm, SaO2 @ 99% on 2lnc. Patient updated to plan of care for the day, in agreement. See work list for full assessment
and interventions performed.
--- NOTE | 2023-11-27 10:22 | CM ---
pt awaiting CABG on 11/28, dc plans remain eval for SNF.
[2023-11-27 11:04] LABS: Glucose - Point of Care 153 mg/dl (70-99)
--- NOTE | 2023-11-27 14:43 | W.PN.HOSP.TC ---
Today's Communication/Plan
-
Miralax
pending CABG 11/28
DVT ppx - HSQ
Assessment / Plan
Assessment / Plan
78yo F with PMHx of HtN, DM, HLD, tacotsubo CM, recent admission with intubation to [facility] managed for HFpEF exacerbation, tacotsubo CM and pneumonia, discharged home but had gradually worsening weakness. Admitted with malaise and
worsening KELLIE, found constipation with fecal impaction. Later found concern for RLL so Abx started. In thge evening of 11/22/23 had episode of significant chest pain, later found with elevated troponin and hypertension, found NSTEMI and 3-vessel
disease on cardiac cath, pending CABG
Accidental findings of pulmonary and thyroid nodules to be followed as outpatient
A/P:
#NSTEMI
#CAD s/p PCI
#LBBB
#Acute hypoxic insufficiency
#HTN emergency with Hx of Essential HTN
#Chronic HFrEF
#Takotsubo CM
was on DAPT, plavix held in anticipation of CABG on 11/29/23
Heparin drip completed
Echo showed EF 35-40% with global hypokinesis
Cardiology follows: Cardiac cath complicated by presence of KELLIE on CKD. Accomplished on 11/24/23 and found 3 vessel disease. CTS involved
Nitro drip completed, follow BP trend
-continue coreg, imdur and hydralazine
-other GDMT limited by renal function
#Worsening weakness, most likely deconditioning 2/2 recent hospitalization
PT/OT eval
TSH, cortisol AM WNL
No signs of UTI on UA
Head CT without significant acute findings
#L foot pain
suspect DJD
XR neg for acute findings
cont Tylenol
#Concern for RLL pneumonia on XR with unspecified organism, ruled out
Unclear if new findings
Bcx neg to date
started empiric Rocephin/Doxy that broadened to Vanco/Zosyn on 11/23/23, later stopped with agreement with Machining Engineer due to low suspiscion of infection
#Subcentimeter lung nodules
LUE, L lateral and RUL
Follow up with pulm for repeated CT chest in 3-6 months after d/c - family verbalized understanding
#1.4 thyroid nodule
TSH WNL
Outpatient US thyroid and further mgmt by endo, referral to be provided upon d/c - family verbalized understanding
#Fecal impaction with constipation
resolved with Enema
Laxatives
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
as per review of previous records -Cr jumped up from 1.8-19 to 2.5 and then 3.0
IVF trial - Cr improved from 3.0 to 1.9
FeNa 2.6
US renal without signs of hydronephrosis
Nephrology consult: resolved on mild hydration
IVF
follow Cr
#DM type 2 with unspecified complications
Insulin SS, DM diet
#Anemia, stable
no deficiency noted
No overt bleeding
follow CBC
Outpatient follow up
#Transaminitis
resolved
#2cm L renal simple cyst
#Umbilical hernia
#DJD
follow with PCP upon d/c
#Foot pain
XR showed DJD
#Hypomagnesemia
repleted
DVT ppx hsq
FUll code
Anticipated Discharge: > 48 hours
Subjective/Interval History
-
Date of Service: November 27, 2023
no acute events
Objective Data
-
Labs:
Laboratory Results
11/27/23
05:59
WBC 8.7
Hgb 8.9 L
Hct 26.9 L
Plt Count 319
Sodium 139
Potassium 4.0
Chloride 105
Carbon Dioxide 27
BUN 48 H
Creatinine 1.8 H
Glucose 138 H
Calcium 9.9
Total Bilirubin 0.4
AST 33
ALT 23
Alkaline Phosphatase 47
Vital Signs:
Vital Signs
Temp Pulse Resp BP Pulse Ox
97.5 F 64 17 112/63 99
11/27/23 11:33 11/27/23 13:00 11/27/23 11:38 11/27/23 11:36 11/27/23 11:38
I&O
11/26/23 11/27/23 11/28/23
06:59 06:59 06:59
Intake Total 720 / 720 1110 / 1110 250 / 250
Output Total 100 / 100 200 / 200
Balance 620 / 620 910 / 910 250 / 250
Review of Systems
-
History Source: Patient
All other systems: Not reviewed unless documented
Physical Exam
-
General: No Apparent Distress
HEENT: Normocephalic, Atraumatic and Moist Mucous Membranes
Respiratory: Clear to Auscultation
Cardiac: Regular Rhythm
GI: Soft, Nontender and Nondistended
Genito-urinary: No Costovertebral Tender
Musculoskeletal: No Clubbing, No Cyanosis and No Edema
Skin: Warm
Neuro: Awake, Alert, Oriented and AO x 3
Psych: Calm
Data Reviewed
-
Diagnostic Radiology: Image personally visualized and interpreted and Report Reviewed by me
CT Scan: Image personally visualized and interpreted and Report Reviewed by me
Ultrasound: Report Reviewed by me
Labs: Labs Reviewed by me
[2023-11-27 15:01] LABS: Glucose - Point of Care 182 mg/dl (70-99)
[2023-11-27] MEDS: NOVOLOG FLEXPEN-LOW RESISTANCE 1 UNITS SC ×3 (15:03→19:18)
--- NOTE | 2023-11-27 15:35 | CM ---
spoke with pt and daughter in room, we discussed preop CABG teaching including sternal and driving restrictions, she is prev indep, lives with her daughter in a 1 story home with no steps to enter. she denies any dme's. we discussed SNF post dc (as
recommended by PT/OT) and she is agreeable. referrals to be faxed to [facility], [facility], [facility] and [facility]. plan is for CABG 11/28. cm to follow.
--- NOTE | 2023-11-27 16:29 | W.PN.UPDATE ---
Update Note
Progress Note Update
CARDIAC SURGERY ATTENDING:
It was my pleasure to meet with Mrs. Evelyn Baxter. Her 2 daughters were present during her conversations. I have reviewed her presentation, medical history, and available imaging. I believe she will benefit from surgical coronary
revascularization. I anticipate HINDS to LAD, greater saphenous vein to D2, greater saphenous vein to OM1, potential greater saphenous veins to OM2, and greater sinus vein to either RPDA or RPLB. We discussed her pathology at length, reviewed the
proposed operative interventions, discussed the periprocedural risks (including, but not limited to, risk of , stroke, MD, arrhythmia, ECMO/VAD/IABP requirement, PNA, KELLIE/F [elevated risk given recent KELLIE to creatinine 3.0], bleeding/need to
return to the OR, and infection), discussed expected in-hospital postprocedural course, and reviewed the expected outpatient recovery. All questions were answered to the best of my abilities. The patient was agreeable to proceed.
I have tentatively scheduled this patient for this coming 11/29/2023
Thank you for the opportunity to participate in this patient's care.
Almas Robins MD
[phone]
[2023-11-27] MEDS: HEPARIN 5000 UNITS SC ×2 (16:50→23:04)
[2023-11-27 18:45] LABS: Glucose - Point of Care 170 mg/dl (70-99)
[2023-11-27] MEDS: FLUSH (NSS) 1 FLUSH IV (20:42)
[2023-11-27] MEDS: PROCARDIA XL (EXTENDED RELEASE) 60 MG PO (21:50)
[2023-11-27] MEDS: NEURONTIN 100 MG PO (21:51)
[2023-11-27 21:57] LABS: Glucose - Point of Care 168 mg/dl (70-99)
--- NOTE | 2023-11-27 23:28 | PTCARENOTE ---
Received patient at change of shift. AAOx3 with family at the bedside. Complaining of left foot pain, chronic per patient. Tylenol given with relief, see MAR. Sinus rhythm with a BBB 60s. Elevated BP that resolved with scheduled medications.
Ambulated to bathroom, x1 assist with walker to bathroom. When returning, patient stated 'feeling dizzy.' Assisted patient back to bed. Vital signs stable. Patient rested in bed and states 'feeling better.' Loose BM x1- unable to obtain heme test-
contaminated with urine. 93% and above on room air. Patient and family requested to wear oxygen overnight. Placed on 2L, 99%. Reviewed plan of care with patient and family. Verbalized understanding. Call dacosta within reach. Makes needs known.
[2023-11-28] VITALS (17 sets, daily range): BP systolic 124–168; BP diastolic 60–80; BMI 25.6
--- NOTE | 2023-11-28 04:02 | W.PN.CT ---
Today's Communication / Plan
-
Plan:
-Cont. current medical management by primary team
-Cont. current meds (ASA, SC Heparin, Imdur, Coreg, Procardia XL, Crestor, Ranolazine)
-Ongoing preop workup
-Plavix washout
-Tentatively for CABG by Dr. Robins tomorrow 11/28
-Will cont. to closely monitor
Assessment / Plan
-
Assessment:
-Severe 3v CAD
-[place]
-NSTEMI (peak trop 7.36)
-Hx of CAD S/P PCI with prior 7 stents, most recent stent in 2018
-Plavix washout, last dose on 11/23 @ 0832
-ICM (LVEF 30% per TTE on 11/22)
-Systolic CHF with recent intubation
-Mild-moderate MR
-Mildly dilated left atrium
-LBBB
-Tachycardia
-Hx of Takotsubo syndrome
-KELLIE on chronic CKD3b (cr 3.0 on 11/20, now 1.8)
-Anemia
-HTN
-HLD
-T2DM (A1C 6.9)
-LETTY lung nodules (7.1 mm, incidental findings from chest CT 11/23)
-Thyroid nodule (1.4 cm, incidental findings from chest CT 11/23)
-Mild right scoliosis
Discussed patient care with: Cardiology, Nursing, Respiratory Therapy, Pharmacy and Care Team
Subjective
-
Date of Service: November 28, 2023
No issues overnight. Denies CP/SOB
Objective Data
-
PT 14.2 Sec (11.4-14.6) 11/25/23 03:58
INR 1.1 11/25/23 03:58
APTT 21.0 Sec (23.4-35.0) L 11/25/23 03:58
Vital Signs
Vital Signs
Temp Pulse Resp BP Pulse Ox
98.6 F 59 16 146/65 100
11/27/23 23:10 11/28/23 02:00 11/27/23 23:10 11/27/23 23:01 11/27/23 23:10
CT Intake/Output/Weight
11/27/23 11/27/23 11/28/23
06:59 18:59 06:59
Intake Total 150 / 1110 250 / 250
Output Total 200 / 200
Balance -50 / 910 250 / 250
SaO2: 100 (2L)
Physical Exam
-
General: Awake, Oriented and AOx3
Cardiovascular: Regular rate & rhythm
Respiratory: Clear
Data Reviewed
-
Lab Results: Results Reviewed
Medications: Active Meds Reviewed
Chest X-Ray: Report Reviewed and Image Reviewed
ECG: Report Reviewed and Image Reviewed
[2023-11-28 05:37] LABS: % Basophils 0.7 % (0-2); % Eosinophils 5.9 % (0-6); % Immature Granulocytes 0.2 % (0-0.5); % Lymphocytes 41.6 % (20.5-51.1); % Monocytes 7.4 % (1.7-9.3); % Neutrophils 44.2 % (42.2-75.2); Absolute Basophils 0.1 10^3/uL (0-0.2); Absolute Eosinophils 0.5 10^3/uL (0-0.7); Absolute Lymphocytes 3.4 10^3/uL (1.2-3.4); Absolute Monocytes 0.6 10^3/uL (0.1-0.6); Absolute Neutrophils 3.7 10^3/uL (1.4-6.5); Hematocrit 24.4 % (37.0-47.0); Hemoglobin 7.9 g/dL (12.0-16.0); Mean Corp Hgb Conc. 32.4 g/dL (33.0-37.0); Mean Corpuscular Hgb 28.1 pg (27.0-31.0); Mean Corpuscular Volume 86.8 fL (81.0-99.0); Mean Platelet Volume 9.5 fL (7.4-10.4); Nucleated Red Blood Cells % 0 %; Platelet Count 323 10^3/uL (130-400); Red Blood Cell Count 2.81 10^6/uL (4.20-5.40); Red Cell Dist. Width 14.7 % (11.5-14.5); White Blood Cell Count 8.3 10^3/uL (4.8-10.8)
[2023-11-28] MEDS: TYLENOL 650 MG PO (05:39)
[2023-11-28 05:48] LABS: ALT (SGPT) 22 U/L (0-35); AST (SGOT) 30 U/L (14-36); Albumin 3.4 g/dl (3.5-5.0); Alkaline Phosphatase 47 U/L (38-126); Blood Urea Nitrogen 50 mg/dl (7-17); Calcium 9.8 mg/dl (8.4-10.2); Carbon Dioxide 31 mmol/L (22-30); Chloride 104 mmol/L (98-107); Estimated Creatinine Clearance 20 ml/min; Glucose 136 mg/dl (70-99); Potassium 4.3 mmol/L (3.5-5.1); Sodium 139 mmol/L (135-145); Total Bilirubin 0.3 mg/dl (0.2-1.3); Total Protein 6.1 g/dl (6.3-8.2); eGFR 28.66
--- NOTE | 2023-11-28 08:03 | W.PN.CD ---
Today's Communication / Plan
-
- NPO after midnight for CABG in AM
Impression / Plan
-
BACKGROUND: 78F with CAD, last stent 2018, ICM EF 40%, chronic systolic HF, NIDDM, HTN, HLD, and CKD3 with recent hospitalization at [facility] with HTN emergency, pulm edema, requiring intubation and diagnosis of possible Takotsubo CM presents with
weakness. She did not undergo cath. She was discharged home, and then presented to with weakness on 11/19. She was found to have an KELLIE and a mildly elevated troponin. Echo 11/19 showed EF 35-40%, global HK, mild/mod MR, nl RV, mild TR, PASP 35.
Then, on evening of 11/21, had episode of chest pain, which appears to be in setting of NSTEMI. She was reloaded with ASA, continued on Plavix; and started on heparin and nitro drips.
NSTEMI
-currently chest pain free with med mgmt
-EKG with chronic LBBB
-peak trop 7.36
-Cath with multivessel CAD. She is waiting for CABG while Plavix washes out.
-CABG planned for 11/28
.
ICM EF 30%
-down from 35-40%, with worsening lateral/inferolateral regional wall motion
-Cath with multivessel coronary disease being evaluated for CABG.
-continue coreg, imdur and hydralazine
-other GDMT limited by renal function:
-
KELLIE on CKD3b
-family reports b/l Cr of 1.4; was 3 on admit, and now stable 1.8 today
-nephrology is managing/optimizing for cath
CAD
-PCI to RCA, LAD, and Circ in past; last 2019
-Cath with multivessel disease this admission. CT surgery evaluation in progress
HTN
-She had HTN Urgency at prior hospitalization, which was believed to prompt pulmonary edema
-meds limited by KELLIE on CKD
-continue coreg: increase to 25mg bid
-continue nifedipine 60mg daily
-Continue nitrates
Type II DM
Anemia, likely of chronic disease, denies abnormal bleeding
Physical Exam
Vital Signs/Labs
Vital Signs
Temp Pulse Resp BP Pulse Ox
99.1 F 61 16 124/69 99
11/28/23 07:35 11/28/23 07:35 11/28/23 07:35 11/28/23 07:35 11/28/23 07:35
11/27/23 11/28/23 11/29/23
06:59 06:59 06:59
Actual Weight 61.3 kg 61.4 kg
11/28/23 04:39
11/28/23 04:39
PT 14.2 Sec (11.4-14.6) 11/25/23 03:58
INR 1.1 11/25/23 03:58
APTT 21.0 Sec (23.4-35.0) L 11/25/23 03:58
Magnesium 2.0 mg/dl (1.6-2.3) 11/28/23 04:39
Triglycerides 113 mg/dl (10-149) 11/24/23 04:50
LDL Cholesterol, Calc 63 mg/dl 11/24/23 04:50
VLDL Cholesterol, Calc 22 mg/dl (0-30) 11/24/23 04:50
HDL Cholesterol 44 mg/dl 11/24/23 04:50
11/20/23 11/22/23 11/24/23
07:36 20:15 04:50
Ura-Z-Nanqhvjedrp Pept 1140 1950 11002
Physical Exam
Constitutional: No acute distress and Comfortable
EENT: Anicteric and Moist mucous membranes
Cardiovascular: Rhythm & rate is regular, Pedal edema is absent and Systolic murmur absent
Respiratory: Respiratory effort normal, Crackles Absent and Rhonchi Absent
GI: Soft and Non tender
Neuro/Psych: Alert, Oriented and AO x 3
Data Reviewed
-
Date of Service: November 28, 2023
Medical Decision Making: Reviewed Test Results, Independent Historian Assessment and Test Interpretation
EKG: Tracing Personally Visualized and interpreted
Echo: Report Reviewed by me
X-Ray/CT/US/MRI/NUC/PET: Report Reviewed by me
Labs: Labs Reviewed by me
Old Records: Reviewed
[2023-11-28 08:15] LABS: Glucose - Point of Care 137 mg/dl (70-99)
[2023-11-28] MEDS: NOVOLOG FLEXPEN-LOW RESISTANCE SC ×2 (08:15→18:08)
--- NOTE | 2023-11-28 09:05 | W.PN.NEPH.PH ---
Today's Communication / Plan
-
Kidney function stable for CABG procedure tomorrow
Assessment/Plan
-
Assessment:
KELLIE on ?CKD
HyperK
Constipation
Weakness
C/f PNA
Plan:
Creatinine stable at 1.[address] abd and renal US with out hydro
NSTEMI s/p cath 11/23 with minimal contrast and noted MVD, plan CABG next week after plavix wash out
BP stable
bowel regimen for constipation , monitor UOP
ok for lasix if needed, follow wts and O2 needs, weight stable
follow labs
For CABG tomorrow
-
-
Date of Service: November 28, 2023
CC / HPI / ROS
-
Chief Complaint:
KELLIE
History of Present Illness:
Cr 1.5 --> peak of 3, 1.8
BP stable
Review of Systems:
no cp or sob
feels well
small Bm but not complete
wt is stable
Labs
-
Labs:
WBC 8.3 10^3/uL (4.8-10.8) 11/28/23 04:39
RBC 2.81 10^6/uL (4.20-5.40) L 11/28/23 04:39
Hgb 7.9 g/dL (12.0-16.0) L 11/28/23 04:39
Hct 24.4 % (37.0-47.0) L 11/28/23 04:39
Plt Count 323 10^3/uL (130-400) 11/28/23 04:39
Sodium 139 mmol/L (135-145) 11/28/23 04:39
Potassium 4.3 mmol/L (3.5-5.1) 11/28/23 04:39
Chloride 104 mmol/L (98-107) 11/28/23 04:39
Carbon Dioxide 31 mmol/L (22-30) H 11/28/23 04:39
BUN 50 mg/dl (7-17) H 11/28/23 04:39
Creatinine 1.8 mg/dL (0.6-1.0) H 11/28/23 04:39
eGFR 28.66 11/28/23 04:39
Glucose 136 mg/dl (70-99) H 11/28/23 04:39
Calcium 9.8 mg/dl (8.4-10.2) 11/28/23 04:39
Hvn-F-Vsfxcjeeyqf Pept 95607 pg/ml 11/24/23 04:50
Albumin 3.4 g/dl (3.5-5.0) L 11/28/23 04:39
Physical Exam
-
Vital Signs:
Vital Signs
Temp Pulse Resp BP Pulse Ox
99.1 F 61 16 124/69 99
11/28/23 07:35 11/28/23 07:35 11/28/23 07:35 11/28/23 07:35 11/28/23 07:35
Cardiovascular:: Regular rate and rhythm
Respiratory:: Bilateral: CTA (decreased)
Lung Excursion:: Normal
Abdomen:: Nontender and Soft
Extremity Edema:: None: Bilateral:
Jones Catheter: No
[2023-11-28] MEDS: COREG 25 MG PO ×2 (09:12→19:53)
[2023-11-28] MEDS: IMDUR (EXTENDED RELEASE) 30 MG PO (09:12)
[2023-11-28] MEDS: ASPIR LOW (ENTERIC COATED) 81 MG PO (09:12)
[2023-11-28] MEDS: HEPARIN 5000 UNITS SC ×3 (09:13→23:57)
[2023-11-28] MEDS: CRESTOR 10 MG PO (09:13)
[2023-11-28] MEDS: MIRALAX PO (09:14)
--- NOTE | 2023-11-28 09:24 | PTCARENOTE ---
Assumed care of pt from night RN. Pt received awake and alert, Ox3. VSs, CM shows NSR with BBB 60's, POX 99%/2L. Daughter at bedside. Pt generally weak, using walker to ambulate around room with assist of one. C/O chronic pain to left foot
09/07, receiving Tylenol as per JUN.
--- NOTE | 2023-11-28 11:10 | PTCARENOTE ---
1 unit PRBC's up and infusing as per protocol, VSS, pt tolerating infusion without any adverse reaction.
--- NOTE | 2023-11-28 11:42 | PN.CDI ---
CDI
- -
CDI:
Physician Documentation Request
Admit Date: 11/23/23 19:57
Dear Doctor Rajeev,
Please review the following and provide your response in the progress notes.
Clinical Indicators:
11/22/23 20:40 (created 11/23/23 04:11) - Rapid Response
#Patient up to bedside commode and complaining of '02/07 chest pain and pressure',
#...described it as radiating down her left arm. Patient diaphoretic and hypoxic.
#Patient assisted back into bed and RR called.
#EKG showing sinus tachycardia, BP elevated,
#...pulse ox 91% on 3L.
#...Orders for sublingual nitro given x3, 1mg IV morphine, and 243 mg aspirin.
#Patient placed on 10L midflow, received breathing tx from RT.
#Patient transferred to ICU per orders,
11/22/23 22:45 - Patient Care Note
#received patient after rapid response.
#...weaned from the non-rebreather to 4L NC.
Pantry Attendant, consult, 11/22
#Hypoxemic and mild hypercapnic respiratory insufficiency
#...--ABG 11/22/2023--46/62/7.33-on 6 L nasal cannula
PN, 11/26
#Acute hypoxic insufficiency
Selected Entries
11/22/23
20:10 11/22/23
20:15 11/22/23
20:21
SaO2
Flow liters per minute #
Oxygen Mode of Delivery Midflow Nasal
Cannula Midflow Nasal
Cannula
Nasal Cannula flow liters per minute 6 10 15
11/22/23
20:44 11/22/23
21:00 11/22/23
21:00
SaO2 92
Flow liters per minute # 15 15
Oxygen Mode of Delivery Non-rebreather
mask Non-rebreather
mask
Nasal Cannula flow liters per minute
Laboratory Tests
11/22/23
20:29
pH 7.33 L
pCO2 46 H
pO2 62 L
ABG O2 Sat (Measured) 91.3 L
Please clarify which of the following accurately represents the patient's respiratory status:
Acute respiratory failure, evolved after admission, now resolved
Acute hypoxic respiratory insufficiency
Hypoxia
Other(please specify)
Additional information for Respiratory Failure:
Recognized criteria for Respiratory Failure (Source: [facility] Hospitalist Mar 2013)
ABGs: (1 or more) Symptoms Please indicate type if known
1. p)2 <60 or RA SPO2 <91% on RA 1. Tachypnea, SOB, dyspnea Hypoxic
2. pCO2 50 and pH <7.35 2. Use of accessory muscles Hypercapnic
3. pO2 decrease of pCO2 increase by 3. Pallor or cyanosis Hypoxic and Hypercapnic
10 mmHg from baseline if known 4. Anxiety or restlessness
5. Unable to speak in full sentences
Supplemental O2 of > 40% (5LPM) Intubation is not required
Use of terms such as suspected, likely, concern for, or probable (associated with a specific diagnosis that is being evaluated, monitored, or treated as if it exists) are acceptable and can be coded in the inpatient setting, when documented at the
time of discharge.
Thank you,
Erin Bishop RN BSN CCDS
CDI Specialist
please contact via tiger text
Please use your independent medical judgment in providing your response.
[2023-11-28] MEDS: NOVOLOG FLEXPEN-LOW RESISTANCE 2 UNITS SC (12:43)
[2023-11-28 12:45] LABS: Glucose - Point of Care 239 mg/dl (70-99)
--- NOTE | 2023-11-28 13:43 | CON.ONC ---
Impression
Impression
Normocytic normochromic anemia, most likely due to protracted hospitalizations and renal insufficiency
Coronary artery disease, CABG to be done November 28
Acute kidney injury, improving
Plan
Plan
She has had a very thorough evaluation of her anemia during this hospitalization. I believe her anemia is indeed due to her extended time in the hospital recently, as well as her acute kidney injury, resulting in diminished erythropoietin
production. However, I would not consider her for erythropoietin supplementation now, 1 day before anticipated surgery. She should be transfused as necessary with packed cells. Assuming continued improvement in her renal function, I would
anticipate her hemoglobin to return to 10 to 11 g within several weeks. If not, we would always be happy to see her in the office for consideration of red cell growth factor supplementation.
Patient History
History of Present Illness
Consult from Dr. Robins regarding anemia
This 78-year-old woman was admitted with congestive heart failure. She had a similar hospitalization at [facility], requiring ventilator support for 2 days. There was concern for Takotsubo cardiomyopathy, but I am not certain if that has
been borne out. She has been found to have severe triple-vessel disease, and CABG is planned for November 28. She denies any prior hematologic problems. She denies ever having been transfused. There is no family history of sickle cell disease.
Hemoglobin 9 days ago was 9.5, it is drifted down to 7.9. She is currently being transfused. I do not have prior hemoglobins available.
Past-Medical/Surgical History
As per problem list below.
Social history: She does not smoke.
Family history is noncontributory.
Patient Medication
�Medication �Instructions �Recorded �Confirmed �Last Taken �Type
acetaminophen 500 mg tablet 1,000 mg PO Q6HPRN PRN mild pain 11/20/23 11/20/23 Unknown History
(Tylenol Extra Strength)
carvedilol 12.5 mg tablet 12.5 mg PO BID Blood Pressure 11/20/23 11/20/23 11/19/23 History
clopidogrel 75 mg tablet 75 mg PO DAILY Blood Clot 11/20/23 11/20/23 11/19/23 History
Prevention/Tx
isosorbide mononitrate 60 mg 60 mg PO DAILY Heart 11/20/23 11/20/23 11/19/23 History
tablet,extended release 24 hr Disease/Condition
lisinopril 40 mg tablet 40 mg PO DAILY Blood Pressure 11/20/23 11/20/23 11/20/23 History
nifedipine 30 mg tablet,extended 30 mg PO HS Blood Pressure 11/20/23 11/20/23 11/19/23 History
release 24 hr
ranolazine 500 mg tablet,extended 1,000 mg PO BID Heart 11/20/23 11/20/23 11/19/23 History
release,12 hr Disease/Condition
rosuvastatin 10 mg tablet 10 mg PO DAILY High Cholesterol 11/20/23 11/20/23 11/19/23 History
aspirin 81 mg chewable tablet 81 mg PO DAILY Blood Clot 11/23/23 11/23/23 Unknown History
Prevention/Tx
Active Medications
Generic Name Dose Route Start Last Admin
Trade Name Freq PRN Reason Stop Dose Admin
Acetaminophen 650 mg 11/20/23 13:40 11/28/23 05:39
Acetaminophen 325 Mg Tablet PO 12/18/23 13:39 650 mg
Q4HPRN PRN Administration
mild pain/VILLEGAS/temp> 100.4F
Aspirin 81 mg 11/21/23 08:00 11/28/23 09:12
Aspirin 81 Mg (Enteric Coated) Tablet PO 12/19/23 07:59 81 mg
DAILY NATASHA Administration
Bisacodyl 10 mg 11/20/23 14:30
Bisacodyl 10 Mg Rectal Suppository RECTAL 12/18/23 14:29
[id number] PRN
constipation
Carvedilol 25 mg 11/23/23 09:00 11/28/23 09:12
Carvedilol 25 Mg Tablet PO 12/21/23 08:59 25 mg
BID NATASHA Administration
Dextrose 12.5 grams 11/20/23 13:40
Dextrose 50% (0.5 Grams/Ml) 50 Ml Syringe IV 12/18/23 13:39
[id number] PRN
hypoglycemia
Protocol
Gabapentin 100 mg 11/22/23 22:00 11/27/23 21:51
Gabapentin 100 Mg Capsule PO 12/20/23 21:59 100 mg
HS NATASHA Administration
Glucagon 1 mg 11/20/23 13:40
Glucagon 1 Mg Vial IM 12/18/23 13:39
PRN PRN
hypoglycemia
Protocol
Heparin Sodium 5,000 units 11/27/23 16:00 11/28/23 09:13
Heparin 5,000 Units/Ml 1 Ml Vial SC 12/25/23 15:59 5,000 units
Q8 NATASHA Administration
Hydralazine HCl 10 mg 11/23/23 06:08 11/23/23 06:11
Hydralazine 20 Mg/Ml Vial IV 12/18/23 17:14 10 mg
Q6HPRN PRN Administration
sbp>180 dbp>105
Cefazolin Sodium 2 grams in 10 mls @ 120 mls/hr 11/29/23 06:00
Ancef IV 11/29/23 07:04
CVOR@0600,0700 NATASHA
Insulin Aspart 0 units 11/20/23 16:30 11/28/23 12:43
Insulin Aspart Low Resistance 300 Units/3 Ml Pen.Injctr SC 12/18/23 16:29 2 units
AC NATASHA Administration
Protocol
Isosorbide Mononitrate 30 mg 11/27/23 08:00 11/28/23 09:12
Isosorbide Mononitrate 30 Mg Extended Release Tablet PO 12/25/23 07:59 30 mg
DAILY NATASHA Administration
Magnesium Oxide 500 mg 11/29/23 06:00
Magnesium Oxide 500 Mg Tablet PO 11/29/23 06:01
ONCE ONE
Metoprolol Tartrate 25 mg 11/29/23 06:00
Metoprolol 25 Mg Regular Release Tablet PO 11/29/23 06:01
ONCE ONE
Mupirocin 0 applic 11/29/23 06:00
Mupirocin 2% (Ointment) 22 Gram Tube NASAL 11/29/23 06:01
ONCE ONE
Nifedipine 60 mg 11/20/23 22:00 11/27/23 21:50
Nifedipine 60 Mg Extended Release Tablet PO 12/18/23 21:59 60 mg
HS NATASHA Administration
Nitroglycerin 0.4 mg 11/22/23 20:12 11/22/23 20:26
Nitroglycerin 0.4 Mg Sl Tablet SL 12/20/23 20:11 0.4 mg
[id number] PRN Administration
chest pain
Pantoprazole Sodium 40 mg 11/29/23 06:00
Pantoprazole 40 Mg Delayed Release Tablet PO 11/29/23 06:01
ONCE ONE
Polyethylene Glycol 17 grams 11/20/23 13:40
Polyethylene Glycol Powder 17 Grams Packet PO 12/18/23 13:39
DAILYPRN PRN
constipation
Polyethylene Glycol 17 grams 11/26/23 08:00 11/28/23 09:14
Polyethylene Glycol Powder 17 Grams Packet PO 12/24/23 07:59 Not Given
DAILY NATASHA
Ranolazine 1,000 mg 11/20/23 20:00 11/23/23 08:40
Ranolazine 500 Mg Extended Release Tablet PO 12/18/23 19:59 1,000 mg
BID NATASHA Administration
Rosuvastatin Calcium 10 mg 11/21/23 08:00 11/28/23 09:13
Rosuvastatin (Crestor) 10 Mg Tablet PO 12/19/23 07:59 10 mg
DAILY NATASHA Administration
Senna/Docusate Sodium 1 tablet 11/20/23 13:40 11/25/23 15:27
Docusate W/Senna (Cora-Colace) Tablet PO 12/18/23 13:39 1 tablet
BIDPRN PRN Administration
constipation
Sodium Chloride 0 flush 11/26/23 11:00 11/27/23 20:42
Sodium Chloride 0.9% (Flush) Syringe IV 12/24/23 10:59 1 flush
PER PROTOCOL NATASHA Administration
Review of Systems
-
All Other Systems: Reviewed and Negative
Physical Exam
-
Physical examination shows the patient to be in no acute distress.
HEENT exam is unremarkable.
There are no palpable nodes.
Chest is clear.
The heart is regular with no murmur or gallop.
The abdomen is soft and nontender with no organomegaly or masses.
Extremities are unremarkable.
Neurologic is grossly intact.
Labs
Lab Results
WBC 8.3 10^3/uL (4.8-10.8) 11/28/23 04:39
RBC 2.81 10^6/uL (4.20-5.40) L 11/28/23 04:39
Hgb 7.9 g/dL (12.0-16.0) L 11/28/23 04:39
Hct 24.4 % (37.0-47.0) L 11/28/23 04:39
MCV 86.8 fL (81.0-99.0) 11/28/23 04:39
MCH 28.1 pg (27.0-31.0) 11/28/23 04:39
MCHC 32.4 g/dL (33.0-37.0) L 11/28/23 04:39
RDW 14.7 % (11.5-14.5) H 11/28/23 04:39
Plt Count 323 10^3/uL (130-400) 11/28/23 04:39
MPV 9.5 fL (7.4-10.4) 11/28/23 04:39
Abs Immat Gran (auto) 0.0 10^3/uL (0-0.05) 11/28/23 04:39
Absolute Neuts (auto) 3.7 10^3/uL (1.4-6.5) 11/28/23 04:39
Absolute Lymphs (auto) 3.4 10^3/uL (1.2-3.4) 11/28/23 04:39
Absolute Monos (auto) 0.6 10^3/uL (0.1-0.6) 11/28/23 04:39
Absolute Eos (auto) 0.5 10^3/uL (0-0.7) 11/28/23 04:39
Absolute Basos (auto) 0.1 10^3/uL (0-0.2) 11/28/23 04:39
Immature Gran % 0.2 % (0-0.5) 11/28/23 04:39
Neutrophils % 44.2 % (42.2-75.2) 11/28/23 04:39
Lymphocytes % 41.6 % (20.5-51.1) 11/28/23 04:39
Monocytes % 7.4 % (1.7-9.3) 11/28/23 04:39
Eosinophils % 5.9 % (0-6) 11/28/23 04:39
Basophils % 0.7 % (0-2) 11/28/23 04:39
Creatinine 1.8 mg/dL (0.6-1.0) H 11/28/23 04:39
Vital Signs
Vital Signs
Temp Pulse Resp BP Pulse Ox
98.8 F 60 16 127/60 100
11/28/23 12:38 11/28/23 12:38 11/28/23 12:38 11/28/23 10:55 11/28/23 12:38
--- NOTE | 2023-11-28 14:34 | W.PN.HOSP.TC ---
Today's Communication/Plan
-
cabg tomorrow
Assessment / Plan
Assessment / Plan
78yo F with PMHx of HtN, DM, HLD, tacotsubo CM, recent admission with intubation to [facility] managed for HFpEF exacerbation, tacotsubo CM and pneumonia, discharged home but had gradually worsening weakness. Admitted with malaise and
worsening KELLIE, found constipation with fecal impaction. Later found concern for RLL so Abx started. In thge evening of 11/22/23 had episode of significant chest pain, later found with elevated troponin and hypertension, found NSTEMI and 3-vessel
disease on cardiac cath, pending CABG
Accidental findings of pulmonary and thyroid nodules to be followed as outpatient
A/P:
#NSTEMI
#CAD s/p PCI
#LBBB
#Acute hypoxic insufficiency
#HTN emergency with Hx of Essential HTN
#Chronic HFrEF
#Takotsubo CM
was on DAPT, plavix held in anticipation of CABG on 11/29/23
Heparin drip completed
Echo showed EF 35-40% with global hypokinesis
Cardiology follows: Cardiac cath complicated by presence of KELLIE on CKD. Accomplished on 11/24/23 and found 3 vessel disease. CTS involved
Nitro drip completed, follow BP trend
-continue coreg, imdur and hydralazine
-other GDMT limited by renal function
#Worsening weakness, most likely deconditioning 2/2 recent hospitalization
PT/OT eval
TSH, cortisol AM WNL
No signs of UTI on UA
Head CT without significant acute findings
#L foot pain
suspect DJD
XR neg for acute findings
cont Tylenol
#Concern for RLL pneumonia on XR with unspecified organism, ruled out
Unclear if new findings
Bcx neg to date
started empiric Rocephin/Doxy that broadened to Vanco/Zosyn on 11/23/23, later stopped with agreement with Textile [employer] due to low suspiscion of infection
#Subcentimeter lung nodules
LUE, L lateral and RUL
Follow up with pulm for repeated CT chest in 3-6 months after d/c - family verbalized understanding
#1.4 thyroid nodule
TSH WNL
Outpatient US thyroid and further mgmt by endo, referral to be provided upon d/c - family verbalized understanding
#Fecal impaction with constipation
resolved with Enema
Laxatives
#KELLIE on ?CKD stage 3a-b, multifactorial
as per review of previous records -Cr jumped up from 1.8-19 to 2.5 and then 3.0
IVF trial - Cr improved from 3.0 to 1.9
FeNa 2.6
US renal without signs of hydronephrosis
Nephrology consult: resolved on mild hydration
IVF
follow Cr
#DM type 2 with unspecified complications
Insulin SS, DM diet
#Anemia, stable
no deficiency noted
-most likely chronic disease, CKD
No overt bleeding
follow CBC
Outpatient follow up
#Transaminitis
resolved
#2cm L renal simple cyst
#Umbilical hernia
#DJD
follow with PCP upon d/c
#Foot pain
XR showed DJD
#Hypomagnesemia
repleted
DVT ppx hsq
FUll code
Anticipated Discharge: > 48 hours
Subjective/Interval History
-
Date of Service: November 28, 2023
No acute events, no evidence of bleeding
Objective Data
-
Labs:
Laboratory Results
11/28/23
04:39
WBC 8.3
Hgb 7.9 L
Hct 24.4 L
Plt Count 323
Sodium 139
Potassium 4.3
Chloride 104
Carbon Dioxide 31 H
BUN 50 H
Creatinine 1.8 H
Glucose 136 H
Calcium 9.8
Total Bilirubin 0.3
AST 30
ALT 22
Alkaline Phosphatase 47
Vital Signs:
Vital Signs
Temp Pulse Resp BP Pulse Ox
98.5 F 61 16 142/70 100
11/28/23 14:19 11/28/23 14:19 11/28/23 14:19 11/28/23 14:19 11/28/23 12:38
I&O
11/27/23 11/28/23 11/29/23
06:59 06:59 06:59
Intake Total 1110 / 1110 250 / 250 250 / 250
Output Total 200 / 200
Balance 910 / 910 250 / 250 250 / 250
Review of Systems
-
History Source: Patient
All other systems: Not reviewed unless documented
Physical Exam
-
General: No Apparent Distress
HEENT: Normocephalic, Atraumatic and Moist Mucous Membranes
Respiratory: Clear to Auscultation
Cardiac: Regular Rhythm
GI: Soft, Nontender and Nondistended
Genito-urinary: No Costovertebral Tender
Musculoskeletal: No Clubbing, No Cyanosis and No Edema
Skin: Warm
Neuro: Awake, Alert, Oriented and AO x 3
Psych: Calm
Data Reviewed
-
Diagnostic Radiology: Image personally visualized and interpreted and Report Reviewed by me
CT Scan: Image personally visualized and interpreted and Report Reviewed by me
Ultrasound: Report Reviewed by me
Labs: Labs Reviewed by me
[2023-11-28 18:08] LABS: Glucose - Point of Care 143 mg/dl (70-99)
--- NOTE | 2023-11-28 19:13 | PTCARENOTE ---
Pt tsf to 1510 in prep for CVOR, report given to ROBERT Landon
--- NOTE | 2023-11-28 21:30 | PTCARENOTE ---
Pt received from kaleigh JONES. Pt admitted to room 2261 at change of shift. Pt/family oriented to new room. Pt AAOx3. Pt is 1-person assist w/ rolling walker. SR to sinus mirian on the monitor. HR 50-60s. BP slightly elevated 150-160s/60s. Trace pedal
edema. Palpable pulses throughout. Pt on RA. POX 97%. Deep breathing encouraged. Pt abdomen soft/nontender. +BS. Pt OOB to void in the bathroom w/o issue. +BM. Present on admission non-blanchable reddened area near patients bottom - dressing
changed. Skin under dressing intact. Left PIVx1 clean/dry/intact. No c/o pain at this time. Pt clipped and prepped for CVOR. Pt given CHG soap bath and gown/linens changed. BP in both arms obtained. Call dacosta within reach.
[2023-11-28] MEDS: NEURONTIN 100 MG PO (21:50)
[2023-11-28] MEDS: PROCARDIA XL (EXTENDED RELEASE) 60 MG PO (21:50)
--- NOTE | 2023-11-29 00:18 | PTCARENOTE ---
Previous assessment unchanged. Pt sinus mirian on the monitor. HR 50s. BP 140/67. RA. POX 96%. No c/o pain at this time. Pt repositioned in bed. Call dacosta within reach.
[2023-11-29] MEDS: TYLENOL 650 MG PO (01:45)
[2023-11-29 02:21] LABS: Hematocrit 29.9 % (37.0-47.0); Mean Corp Hgb Conc. 33.4 g/dL (33.0-37.0); Mean Corpuscular Hgb 28.5 pg (27.0-31.0); Mean Corpuscular Volume 85.2 fL (81.0-99.0); Mean Platelet Volume 9.2 fL (7.4-10.4); Platelet Count 297 10^3/uL (130-400); Red Blood Cell Count 3.51 10^6/uL (4.20-5.40); Red Cell Dist. Width 15.1 % (11.5-14.5); White Blood Cell Count 10.8 10^3/uL (4.8-10.8)
[2023-11-29 02:24] LABS: Blood Urea Nitrogen 49 mg/dl (7-17); Calcium 9.9 mg/dl (8.4-10.2); Carbon Dioxide 28 mmol/L (22-30); Chloride 105 mmol/L (98-107); Estimated Creatinine Clearance 21 ml/min; Glucose 135 mg/dl (70-99); Potassium 4.4 mmol/L (3.5-5.1); Sodium 140 mmol/L (135-145)
--- NOTE | 2023-11-29 05:00 | PTCARENOTE ---
No change in assessment. Pt SR to sinus mirian on the monitor. HR 50-60s. BP 127/72. Pt maintained on RA. POX 95%. Pt given second CHG soap bath. Pt assisted OOB to void. Weight obtained. Pt repositioned back into bed. Call dacosta within reach.
[2023-11-29 05:03] VITALS: BP 127/72
[2023-11-29 05:04] VITALS: BP 127/72
[2023-11-29 05:11] VITALS: BMI 25.6
[2023-11-29] MEDS: BACTROBAN 2% OINTMENT 1 APPLIC NASAL ×2 (06:20→20:58)
[2023-11-29] MEDS: PROTONIX 40 MG PO (06:20)
[2023-11-29] MEDS: MAGNESIUM OXIDE 500 MG PO (06:20)
[2023-11-29] MEDS: LOPRESSOR 12.5 MG PO (06:21)
[2023-11-29 07:52] LABS: ACT+ - POC 87 Seconds (82-134)
--- NOTE | 2023-11-29 08:08 | CM ---
Reviewed chart. Mrs. Baxter is in the operating room today. Prior to admission she resides with her daughter in a one story home without any steps to enter. Prior to admission she was independent with ADLs. Prior to admission she ambulated with a
rolling walker. She has a rolling walker at home. Will need to see her current functional level to see if she will have any skilled care needs. Medical work-up in progress. The discharge plan is to some level of inpatient rehab. Acute versus
SNF/rehab when medically stable.
[2023-11-29 08:28] LABS: Urine Albumin Trace (Neg - Trace); Urine Bilirubin Negative (Negative); Urine Character Clear (Clear); Urine Color Yellow; Urine Glucose Negative (Negative); Urine Ketone Negative (Negative); Urine Leukocyte Negative (Negative); Urine Nitrite Negative (Negative); Urine Occult Blood Trace (Negative); Urine Urobilinogen Negative (Neg - 1+); Urine pH 6.5 (5.0-9.0)
--- NOTE | 2023-11-29 08:35 | PTOTSP ---
Reviewed chart and noted pt in OR this AM for CABG. Will need new orders for PT and OT on a future date when she is stable to begin therapy activity.
[2023-11-29 09:30] LABS: Urine Squamous Cell 21-25 /LPF (Few)
[2023-11-29 09:31] LABS: Urine Amorphous Seen; Urine Mucus Few
[2023-11-29 09:32] LABS: Urine Red Blood Cell 0-2 /HPF (0-2); Urine White Cell 0-2 /HPF (0-5)
[2023-11-29 10:08] LABS: ACT+ - POC 480 Seconds (82-134)
[2023-11-29 10:24] LABS: B.E. - POC 1.4 mmol/L; Glucose - POC 141 mg/dl (65-99); HCO3 - POC 24 mmol/L (21-29); Hematocrit - POC 26 % PCV (37-47); Hemodilution- POC No; Ionized Calcium - POC 1.26 mmol/L (1.12-1.27); O2 Saturation %Calculated-POC 99.9 5 (92-96); PCO2 - POC 32 mmHg (35-45); PO2 - POC 272 mmHg (80-100); POC Comment PRE; Sodium - POC 139 mmol/L (135-145)
[2023-11-29 10:34] LABS: ACT+ - POC 448 Seconds (82-134)
[2023-11-29 10:55] LABS: ACT+ - POC 543 Seconds (82-134)
[2023-11-29 11:05] LABS: B.E. - POC 4.2 mmol/L; Glucose - POC 188 mg/dl (65-99); HCO3 - POC 27 mmol/L (21-29); Hematocrit - POC 21 % PCV (37-47); Hemodilution- POC Yes; Hemoglobin Calculated - POC 7.2; Ionized Calcium - POC 1.05 mmol/L (1.12-1.27); PCO2 - POC 34 mmHg (35-45); PO2 - POC 514 mmHg (80-100); POC Comment CPB; Potassium - POC 5.6 mmol/L (3.6-5.0); Sodium - POC 140 mmol/L (135-145); pH - POC 7.52 (7.35-7.45)
[2023-11-29 11:17] LABS: ACT+ - POC 534 Seconds (82-134)
--- NOTE | 2023-11-29 11:19 | W.PN.UPDATE ---
Update Note
Progress Note Update
IV fluids: 1800
U.O.:� 350
UF:� 1000
Blood:� 3uPRBCS and 1plt
Wires:� V wire
Inotropes:� Dobtuamine @7
Pressors:� None
Sedatives:� Precedex
�
NEURO: sedated on precedex, pupils +3mm B/L
RESP: #8OT @24 SIMV 10/450/60/5 Lungs clear B/L. 2 mediastinal (70cc on arrival) and R/L pleural (150cc on arrival) chest tubes to -20cm suction. Sanguineous drainage
CV: RRR +S1, S2, no S3, no�rub, no murmur. dressing to median sternotomy. RIJ w/[place] locked @ 45cm. PA 27/17 (20); CVP 12; C.O 1.7/CI 0.98
ABD: round, soft, no BS
EXT: no edema, +2/4 DP pulses B/L, no femoral bruit, right LE KHADRA wrap intact; Left radial A-line intact
: Jones with clear yellow urine
�
A/P: POD #0 s/p CABG x4 (HINDS-:AD, ,SVG-D2, SVG OM1, SVG- RPDA)
SUPRIYA: LVEF 30-35%, global hypokinesis w/ minor improvement in lateral wall, mild MR, mild TR, no AI/, RV OK
- wean and extubate when able
- check MVO2; currently on dobutamine, if patient becomes hypertensive may switch to milrinone for inotropic support.
>>>slow wean; follow hemodynamics closely
- EKG post op showed CHB; sent to cardiology; will attempt pacing at 70bpm
- Monitor UOP and chest tube output
- will resume ASA and plavix tomorrow
- will start GDMT when appropriate
�
# acute surgical blood loss anemia-expected
- trend CBC
- TEG intraop showed need for FFP; will transfuse two units �
�
# T2DM (A1C 6.9)
- insulin infusion x 48h
- Diabetes management correctional maintenance technician consulted
�
# Hyperlipidemia
- resume�lipitor when tolerating PO
[2023-11-29 11:33] LABS: B.E. - POC 2.5 mmol/L; Glucose - POC 189 mg/dl (65-99); HCO3 - POC 26 mmol/L (21-29); Hematocrit - POC 27 % PCV (37-47); Hemodilution- POC Yes; Hemoglobin Calculated - POC 9.1; PCO2 - POC 33 mmHg (35-45); PO2 - POC 339 mmHg (80-100); POC Comment CPB; Potassium - POC 4.7 mmol/L (3.6-5.0); Sodium - POC 142 mmol/L (135-145)
[2023-11-29 11:42] LABS: ACT+ - POC 523 Seconds (82-134)
[2023-11-29 12:14] LABS: B.E. - POC 0.3 mmol/L; Glucose - POC 162 mg/dl (65-99); HCO3 - POC 23 mmol/L (21-29); Hematocrit - POC 26 % PCV (37-47); Hemodilution- POC Yes; Hemoglobin Calculated - POC 8.9; PCO2 - POC 30 mmHg (35-45); PO2 - POC 344 mmHg (80-100); POC Comment WARM; Potassium - POC 4.9 mmol/L (3.6-5.0); Sodium - POC 142 mmol/L (135-145)
[2023-11-29] MEDS: NOVOLOG FLEXPEN-LOW RESISTANCE SC ×2 (12:20→12:21)
[2023-11-29 12:21] LABS: ACT+ - POC 481 Seconds (82-134)
[2023-11-29] MEDS: IMDUR (EXTENDED RELEASE) PO (12:21)
[2023-11-29] MEDS: MIRALAX PO (12:21)
[2023-11-29] MEDS: COREG PO (12:21)
[2023-11-29] MEDS: CRESTOR PO (12:22)
[2023-11-29] MEDS: ASPIR LOW (ENTERIC COATED) PO (12:22)
[2023-11-29] MEDS: HEPARIN SC (12:25)
[2023-11-29] MEDS: ANCEF 10 IV ×2 (12:50→15:29)
[2023-11-29 13:12] LABS: B.E. - POC 1.7 mmol/L; Glucose - POC 157 mg/dl (65-99); HCO3 - POC 25 mmol/L (21-29); Hematocrit - POC 27 % PCV (37-47); Hemodilution- POC Yes; Hemoglobin Calculated - POC 9.3; Ionized Calcium - POC 1.11 mmol/L (1.12-1.27); PCO2 - POC 34 mmHg (35-45); PO2 - POC 354 mmHg (80-100); POC Comment CPB; Potassium - POC 4.8 mmol/L (3.6-5.0); Sodium - POC 143 mmol/L (135-145); pH - POC 7.48 (7.35-7.45)
[2023-11-29 13:16] LABS: ACT+ - POC 115 Seconds (82-134)
[2023-11-29 13:35] LABS: B.E. - POC -1.8 mmol/L; Glucose - POC 136 mg/dl (65-99); HCO3 - POC 22 mmol/L (21-29); Hematocrit - POC 23 % PCV (37-47); Hemodilution- POC Yes; Hemoglobin Calculated - POC 7.9; Ionized Calcium - POC 1.31 mmol/L (1.12-1.27); PCO2 - POC 34 mmHg (35-45); PO2 - POC 505 mmHg (80-100); POC Comment POST; Potassium - POC 4.2 mmol/L (3.6-5.0); Sodium - POC 143 mmol/L (135-145); pH - POC 7.43 (7.35-7.45)
--- NOTE | 2023-11-29 14:06 | W.CVOR.SURPR ---
CVOR Surgeon Immed Pre Op
-
I have examined this patient prior to performance of the scheduled procedure.
The patient's condition is unchanged from the time of the dictated/written History and
Physical and the patient is able to undergo the scheduled procedure.
--- NOTE | 2023-11-29 14:07 | W.IMMPOSTOP ---
Addendum entered and electronically signed by Almas Robins MD 11/29/23 15:30:
[id number]
Original Note:
Surgical Immed Post Op Note
-
CARDIAC SURGERY OPERATIVE NOTE:
Preoperative Dx:
MVCAD s/p multiple prior stents (last 2018)
Ischemic cardiomyopathy w/ LVEF 30% - acute on chronic
HTN/HLD
CKD 3 w/ recent KELLIE w/ creatinine to 3.0
Recent hospitalization at [facility] ([place]) w/ HTN emergency, pulmonary edema requiring intubation - ? Takotsubo CM
Postoperative Dx:
Same
Procedures:
1) Median sternotomy
2) Takedown of HINDS (narrow pedicle)
3) Endoscopic/ partial open harvest/prep of RLE GSV
4) CABG x 4 (HINDS to LAD, GSV to D2, GSV to OM1, GSV to RPDA)
Surgeon:
Almas Robins M.D.
Assistants:
Nikki Webster P.A.-C.; airline pilot/first officer throughout, closure
Christine Salcido P.A.-C.; endoscopic/partial open RLE GSV harvest/prep
Anesthesia:
Pavan Whitman C.R.N.A. and Jagdish Singer M.D.
Perfusion:
Elvis Herrera C.C.P.; XC: 83min, CPB: 154min
Findings:
HALLIE was healthy conduit, albeit slightly small w/ ELD 2.00, brisk flow while OFF CPB, reasonable flow on CPB
GSV was healthy conduit w/ slightly thin kelsey, ELD 2.75mm
LAD was visible proximally & at its apical segment. Midpoint was intramyocardial (~2-3mm) w/ crossing veins. Anastomosis performed at proximal midpoint. ELD 2.50
D2 was visible on the epicardial surface, ELD 2.75mm.
OM1 was visible on the epicardial surface w/ dense scattered calcifications, ELD 2.75mm
RPDA/RPLB were both visible on the epicardial surface, and took a nearly identical course & 1cm apart. The RPDA was a slightly larger vessel w/ ELD 2.50mm
Excellent flow in all grafts on transit-time U/S flow probe assessment
LVEF 30-35%, global hypokinesis w/ minor improvement in lateral wall, mild MR, mild TR, no AI/, RV OK
Pt's aorta was non-aneurysmal w/ normal gross appearance. However, the aortic tissues were quite friable. There were numerous sites of suture hold bleeding that require additional suture. Her cannulation site required repair w/ 2 4-0 prolene
pledgetted sutures.
Transfusions:
3U PRBC (2U on CPB, 1U post)
1pk PLTs
Implants:
Epicardial V-wires x 2
Ground wire x 1
CT x 4 (B/L pleural, inferior mediastinal, superior mediastinal)
Sternal wires x 9
Complications:
None
Condition:
52 sinus w/ isoelectric STs (LBBB). 121/69. 37/20. CVP 17. CO/CI: 1.5/0.95. (Starting CI 1.4) 98%
GTTS: dobutamine 7, insulin 1, precedex 0.5, levophed OFF currently
Serious/Guarded condition
--- NOTE | 2023-11-29 14:44 | CON.INTV ---
Consultation
Consultation Request
Date/Time Consultation Requested: 11/29/2023 - 140
Date/Time Consultation Performed: 11/29/2023 - 1430
Requesting Provider: Nikki Webster PA-C
Performing Provider: Titi Bennett MD
Reason for Consultation: post-op CABG
Medical History
-
Chief Complaint: Elevated blood sugar + fatigue
History of Present Illness:
78-year-old AAF with a PMHx of hypertension, hyperlipidemia, HFrEF, DM type II, CKD and CAD s/p coronary stents who presented with family due to increased sugar and fatigue. Apparently blood glucose was in the 4�500 range at home. She was recently
hospitalized at [facility] due to fluid around her heart, and she also was apparently intubated during that hospitalization for several days. In the ER she was afebrile to 98.3 �F, pulse rate 69, breathing at 16 breaths/min, blood pressure
136/73 and saturating 97% on room air. Initial labs showed Hb 9.5, creatinine 2.9, BUN 75, potassium 5.2, troponin 0.087, proBNP 1140, urinalysis negative for UTI, beta-hydroxybutyrate 0.19. Initial CXR showed RLL airspace/interstitial opacities
suspicious for pneumonia versus asymmetric pulmonary edema. She was started on antibiotics with cefepime, IV vancomycin and was admitted to telemetry under the hospitalist. Cardiology and nephrology were consulted. Rapid response called on 11/21
due to chest pain and shortness of breath. Nitro given without relief and Lasix 20 mg IV push given as well. Patient transferred to the ICU for further care with heparin drip started given concern for ACS versus PE. Echo showed reduced LVEF at
30% and more pronounced lateral/inferolateral hypokinesis. Troponin considerably increased and peaked at 7.36 on 11/23/2023. Of note, VQ scan obtained on 11/22 showed low risk study for PE. Patient underwent left heart catheterization on 11/23
showing severe multisegment triple-vessel CAD. CT chest on 11/23 also showed progressive small bilateral pleural effusions with lung nodules including a subpleural 7.1 mm GGO in the right upper lobe. Cardiothoracic surgery was consulted, and today
she underwent CABG x 4 with no complications, and transferred to the CVICU on dobutamine, insulin, and 4 chest tubes (bilateral pleural, inferior mediastinal + superior mediastinal). Critical care services now consulted for additional
management/recommendations.
When I saw the patient she was in bed, family members at bedside. She is intubated on mechanical ventilation on SIMV at 450/10/40%/7, with PIP 27 cmH2O, breathing at 10 breaths/min and VTe of 455 mL. Heart rate 56, BP via left radial A-line is
120/63. PAP: 34 over 18 mmHg, CO/CI: 2.29/1.43. SpO2 100%. She is on dobutamine at 7mcg/kg/min, Cardene at 7.5mg/hr, Precedex at 0.4mcg/kg/hr, and insulin at 2 units/h.
PMHx: Hypertension, hyperlipidemia, HFrEF, DM type II, CAD s/p coronary stents (last in 2018), CKD
PSHx: Coronary stents
Past Medical History
Past Medical History: Other (Above as per HPI)
Past Surgical History: Other (Above as per HPI)
Social History
Tobacco: Non-smoker
Alcohol: None
Drug: None
Living: With Family
Family History
Family History: Reviewed & Not Pertinent
Allergies / Home Medications
Allergies
Allergy/AdvReac Type Severity Reaction Status Date / Time
No Known Allergies Allergy Unverified 11/20/23 06:21
Home Medications
�Medication �Instructions �Recorded �Confirmed �Last Taken �Type
acetaminophen 500 mg tablet 1,000 mg PO Q6HPRN PRN mild pain 11/20/23 11/20/23 Unknown History
(Tylenol Extra Strength)
carvedilol 12.5 mg tablet 12.5 mg PO BID Blood Pressure 11/20/23 11/20/23 11/19/23 History
clopidogrel 75 mg tablet 75 mg PO DAILY Blood Clot 0711/20/23 11/19/23 History
Prevention/Tx
isosorbide mononitrate 60 mg 60 mg PO DAILY Heart 11/20/23 11/20/23 11/19/23 History
tablet,extended release 24 hr Disease/Condition
lisinopril 40 mg tablet 40 mg PO DAILY Blood Pressure 11/20/23 11/20/23 11/20/23 History
nifedipine 30 mg tablet,extended 30 mg PO HS Blood Pressure 11/20/23 11/20/23 11/19/23 History
release 24 hr
ranolazine 500 mg tablet,extended 1,000 mg PO BID Heart 11/20/23 11/20/23 11/19/23 History
release,12 hr Disease/Condition
rosuvastatin 10 mg tablet 10 mg PO DAILY High Cholesterol 11/20/23 11/20/23 11/19/23 History
aspirin 81 mg chewable tablet 81 mg PO DAILY Blood Clot 11/23/23 11/23/23 Unknown History
Prevention/Tx
Review of Systems
-
Unable to Obtain full review of systems at this time due to: Patient Intubation
Vitals / Labs / Diagnostic Testing
Vital Signs
Temp Pulse Resp BP Pulse Ox
98.3 F 66 18 127/72 95
11/29/23 05:03 11/29/23 06:51 11/29/23 05:03 11/29/23 05:04 11/29/23 05:04
Diagnostic Testing:
Physical Exam
-
HEENT: Normocephalic, Anicteric and Other (ETT in place)
Cardiovascular: S1/S2 and Peripheral Edema (Negative)
Respiratory: Wheeze (Negative), Rales (Negative), Rhonchi (Negative), Non-Labored Respirations, Other (Mechanical breath sounds heard bilaterally) and Other (chest tubes x4)
GI: Soft, Non Distended, Non Tender and Normal Bowel Sounds
Neurology: Other (Sedated)
Skin: Warm and Dry
General: Respiratory Distress (Negative), Comfortable and Chills (Negative)
Assessment
-
78-year-old AAF with a PMHx of hypertension, hyperlipidemia, HFrEF, DM type II, CKD and CAD s/p coronary stents who presented with family due to increased sugar and fatigue. Apparently blood glucose was in the 4�500 range at home. She was recently
hospitalized at [facility] due to fluid around her heart, and she also was apparently intubated during that hospitalization for several days. In the ER she was afebrile to 98.3 �F, pulse rate 69, breathing at 16 breaths/min, blood pressure
136/73 and saturating 97% on room air. Initial labs showed Hb 9.5, creatinine 2.9, BUN 75, potassium 5.2, troponin 0.087, proBNP 1140, urinalysis negative for UTI, beta-hydroxybutyrate 0.19. Initial CXR showed RLL airspace/interstitial opacities
suspicious for pneumonia versus asymmetric pulmonary edema. She was started on antibiotics with cefepime, IV vancomycin and was admitted to telemetry under the hospitalist. Cardiology and nephrology were consulted. Rapid response called on 11/21
due to chest pain and shortness of breath. Nitro given without relief and Lasix 20 mg IV push given as well. Patient transferred to the ICU for further care with heparin drip started given concern for ACS versus PE. Echo showed reduced LVEF at
30% and more pronounced lateral/inferolateral hypokinesis. Troponin considerably increased and peaked at 7.36 on 11/23/2023. Of note, VQ scan obtained on 11/22 showed low risk study for PE. Patient underwent left heart catheterization on 11/23
showing severe multisegment triple-vessel CAD. CT chest on 11/23 also showed progressive small bilateral pleural effusions with lung nodules including a subpleural 7.1 mm GGO in the right upper lobe. Cardiothoracic surgery was consulted, and on
11/29/2023 she underwent CABG x 4 with no complications, and transferred to the CVICU on dobutamine, insulin, and 4 chest tubes (bilateral pleural, inferior mediastinal + superior mediastinal). Critical care services now consulted for additional
management/recommendations.
Impression:
Multivessel CAD s/p multiple coronary stents s/p CABG x 4 (POD#0)
Acute coronary syndrome with NSTEMI
Acute on chronic HFrEF/ICM
Hypertensive urgency at prior hospitalization prompted pulmonary edema
Pneumonia-right lower lobe
Hypoxemic and hypercapnic respiratory insufficiency
KELLIE on top of chronic kidney disease
Multiple pulmonary nodules including 7.1 mm subpleural GGO in the right upper lobe
Anemia
QT prolongation (QTc: 515ms from today's EKG)
Hyperglycemia
Left foot pain
Fecal impaction
Transaminitis
Umbilical hernia
DJD
Conditions present prior to admission:
Hypertension.
Hyperlipidemia.
CHF reduced EF-EF 40%
Chronic systolic heart failure
CAD-last stent 2019
Chronic renal failure.
Diabetes. 2 cm left renal simple cyst
Cholecystectomy
Plan:
Ventilator settings reviewed
FiO2 will be weaned to keep goal SpO2 >90-94%
prn nebulized bronchodilators
Minute ventilation will be adjusted
Arterial blood gases will be monitored
Spontaneous breathing trial will be attempted with hopeful extubation after anesthesia/sedation wear off
Pulmonary artery catheter parameters will be followed
Pressors/antihypertensive/inotropes/diuretics will be provided as needed
Monitor chest tube output
Monitor hemoglobin
Monitor platelet count and coags
Transfuse blood product if needed to keep Hb >8g/dL, plt>50k (given post-operative status)
CT surgery managing chest tubes
Given concern for RLL pneumonia, she is already s/p course of antibiotics with Doxy + Zosyn x 2 days s/p IV vanco x 2 doses, cefepime x1 dose in ER, and rocephin x 2 doses
Ranolazine was previously being held given QT prolongation
Bowel regimen
Monitor blood sugar with goal BG 140-180mg/dL
Insulin drip per protocol
Given patient has multiple pulmonary nodules seen on CT chest from 11/24/2023, would repeat CT chest imaging without contrast in about 4-6 weeks to assess for resolution versus persistence of these nodules
Aspiration precautions
VAP prevention protocol
DVT prophylaxis
Early nutrition
Early mobilization
Critical care statement: A total of 46 minutes of critical care time was provided for this patient today. This includes management of ventilator, spontaneous breathing trial, arterial blood gases, pressors, of unstable vital signs, evaluation of the
patient at bedside, reviewing the patient's pertinent medical records including radiographs, microbiology, laboratory evaluations, and discussion with primary team and critical care nursing.
Diagnostic data:
Chest x-ray 11/20/2023-right lower lobe asymmetrical pulm edema versus developing pneumonia, heart enlarged
Chest x-ray 11/22/2023-progressive right lower lobe pneumonia mild degree of pulmonary vascular congestion
Chest x-ray 11/29/2023- New postoperative changes; no pneumothorax; minimal left pleural effusion
Renal ultrasound 11/20/2023-simple upper pole right renal cyst measuring 3.9 cm, unremarkable otherwise
CT head 11/21/2023-no acute intracranial abnormalities, diffuse cortical atrophy
CT Chest 11/24/2023:
Progressive small bilateral pleural effusions and adjacent compressive atelectasis.
Pulmonary nodules, as described, with groundglass nodule measuring up to 7.1 mm. Recommend follow-up in 6-12 months.
1.4 cm left thyroid low-attenuation nodule. Consider nonemergent follow-up ultrasound assessment.
CT abdomen and pelvis 11/21/2023-moderate volume widespread colonic stool, 4 cm simple right renal cyst, prior cholecystectomy, small fat-containing umbilical hernia
Echocardiogram 11/20/2023-EF 35-40%, global hypokinesis, moderate mitral regurgitation, PA systolic 35
[2023-11-29 14:55] LABS: Glucose - Point of Care 142 mg/dl (70-99)
--- NOTE | 2023-11-29 15:00 | PTCARENOTE ---
received patient from cvor sedated and placed on vent by spooler operator. Labs drawn and sent, ekg and cxr done bedside. out with usual lines, ctx4 placed to wall suction. draining red. RL pleurals and med x2. Pulses by doppler. no edema. feet cool. V pacing.
underlying 3rd degree heart block. temp pacer set to 56/5/0.5. SIMV 10/450/+7 and 60% fio2. lungs diminished. hypoactive bs. pfeiffer draining clear yellow. MSI and all surgical sites c/d/i. out on cardene, precedex, and dobut @ 7mcg. will continue to
monitor.
[2023-11-29 15:07] LABS: Ionized Calcium 1.21 mMOL/L (1.15-1.33); O2 Saturation % 99.6 % (94-98); PCO2 38 mmHg (32-35); PO2 178 mmHg (83-108); Potassium 4.2 mMOL/L (3.5-5.1); Sodium 139 mMOL/L (136-145); pH 7.37 (7.35-7.45)
[2023-11-29 15:10] LABS: Mixed Venous O2 Saturation 60.6 %
[2023-11-29 15:14] LABS: Hematocrit 24.3 % (37.0-47.0); Hemoglobin 8.8 g/dL (12.0-16.0)
[2023-11-29 15:18] LABS: INR 1.55; PT 18.7 Sec (11.4-14.6)
[2023-11-29 15:19] LABS: APTT 34.9 Sec (23.4-35.0)
[2023-11-29] MEDS: NEURONTIN PO ×3 (15:25→22:12)
[2023-11-29] MEDS: TYLENOL PO ×2 (15:25→22:13)
[2023-11-29] MEDS: NSS 500 IV (15:26)
[2023-11-29 15:33] LABS: Blood Urea Nitrogen 40 mg/dl (7-17); Estimated Creatinine Clearance 25 ml/min; Glucose 129 mg/dl (70-99); Magnesium 2.5 mg/dl (1.6-2.3)
[2023-11-29 15:44] LABS: Platelet Count 159 10^3/uL (130-400)
--- NOTE | 2023-11-29 16:03 | W.PN.NEPH.PH ---
Today's Communication / Plan
-
follow labs
Assessment/Plan
-
Assessment:
NSTEMI-MVD- s/p CABG x4 11/29/23
KELLIE on ?CKD
HyperK
Constipation
Weakness
C/f PNA
Plan:
s/p CABG today, SUPRIYA EF 35-40%
cr post op at 1.4
on dobutamine per primary
monitor UOP with pfeiffer
follow labs
cont supportive care
d/w nursing
-
-
Date of Service: November 29, 2023
CC / HPI / ROS
-
Chief Complaint:
KELLIE
History of Present Illness:
Cr 1.4 post op, CABG x4 11/28
BP stable on dobutamine , reportedly CI is low
hb at 8.8 s/p 3 units pRBC, 1 unit plt
Review of Systems:
sedated and intubated FIo2 40%
Labs
-
Labs:
WBC Cancelled 11/29/23 06:00
RBC Cancelled 11/29/23 06:00
Sodium Cancelled 11/29/23 06:00
Potassium Cancelled 11/29/23 06:00
Chloride Cancelled 11/29/23 06:00
Carbon Dioxide Cancelled 11/29/23 06:00
BUN 40 mg/dl (7-17) H 11/29/23 14:56
Creatinine 1.4 mg/dL (0.6-1.0) H 11/29/23 14:56
eGFR Cancelled 11/29/23 06:00
Glucose 129 mg/dl (70-99) H 11/29/23 14:56
Calcium Cancelled 11/29/23 06:00
Rqu-U-Okifyzmkovu Pept 94999 pg/ml 11/24/23 04:50
Albumin Cancelled 11/29/23 06:00
Physical Exam
-
Vital Signs:
Vital Signs
Temp Pulse Resp BP Pulse Ox
96.8 F L 70 0 127/72 100
11/29/23 15:00 11/29/23 15:50 11/29/23 15:50 11/29/23 05:04 11/29/23 15:50
Cardiovascular:: Regular rate and rhythm
Lung Excursion:: Abnormal (decreased, chest tubes )
Abdomen:: Nontender and Soft
Extremity Edema:: None: Bilateral:
Pfeiffer Catheter: Yes
[2023-11-29 16:06] LABS: Glucose - Point of Care 176 mg/dl (70-99)
--- NOTE | 2023-11-29 16:39 | W.PN.CD ---
Today's Communication / Plan
-
-Status-post CABG x4 today.
-Remains intubated.
-Complete heart block status-post CABG; temporary pacemaker in place.
-Continue spacer type bar and segment.
-Cardiac index 0.9; currently on dobutamine.
Impression / Plan
-
BACKGROUND: 78F with CAD, last stent 2019, ICM EF 40%, chronic systolic HF, NIDDM, HTN, HLD, and CKD3 with recent hospitalization at [facility] with HTN emergency, pulm edema, requiring intubation and diagnosis of possible Takotsubo CM presents with
weakness. She did not undergo cath. She was discharged home, and then presented to with weakness on 11/19. She was found to have an KELLIE and a mildly elevated troponin. Echo 11/20/23 showed EF 35-40%, global HK, mild/mod MR, nl RV, mild TR, PASP 35.
Then, on evening of 11/21, had episode of chest pain, which appears to be in setting of NSTEMI. She was reloaded with ASA, continued on Plavix; and started on heparin and nitro drips.
CAD/NSTEMI
-Status-post CABG x4 today.
-Previous PCI to RCA, LAD, and Circ in past; last 2018.
-Remains intubated.
-Continue statin.
Complete heart block status-post CABG:
-Temporary pacemaker in place.
-Continue spacer type bar and segment.
Acute HFrEF/ICM EF (30%):
-Cardiac index 0.9; currently on dobutamine.
-GDMT throughout hospitalization once extubated and off dobutamine.
-Continue supportive care.
KELLIE on CKD3b
-family reports b/l Cr of 1.4; was 3 on admit; currently 1.4.
-Continue to monitor; Nephrology following.
HTN
-She had HTN Urgency at prior hospitalization, which was believed to prompt pulmonary edema
-meds limited by KELLIE on CKD
-Resume Coreg once extubated and off dobutamine.
Type II DM
Anemia, likely of chronic disease.
Physical Exam
Vital Signs/Labs
Vital Signs
Temp Pulse Resp BP Pulse Ox
96.3 F L 50 0 127/72 100
11/29/23 16:00 11/29/23 16:30 11/29/23 16:30 11/29/23 05:04 11/29/23 16:30
11/28/23 11/29/23 11/30/23
06:59 06:59 06:59
Actual Weight 61.4 kg 61.4 kg
11/29/23 14:56
PT 18.7 Sec (11.4-14.6) H 11/29/23 14:56
INR 1.55 11/29/23 14:56
APTT 34.9 Sec (23.4-35.0) 11/29/23 14:56
Magnesium 2.5 mg/dl (1.6-2.3) H 11/29/23 14:56
Triglycerides 113 mg/dl (10-149) 11/24/23 04:50
LDL Cholesterol, Calc 63 mg/dl 11/24/23 04:50
VLDL Cholesterol, Calc 22 mg/dl (0-30) 11/24/23 04:50
HDL Cholesterol 44 mg/dl 11/24/23 04:50
11/20/23 11/22/23 11/24/23
07:36 20:15 04:50
Jub-M-Wnzzhsdvwfg Pept 1140 1950 [id number]
Physical Exam
Constitutional: Other (Intubated, sedated)
EENT: Anicteric
Cardiovascular: Rhythm & rate is regular, Pedal edema is absent, Systolic murmur absent and S1S2 is normal
Respiratory: Respiratory effort normal and Other (Coarse bilateral breath sounds, on vent)
GI: Soft
Neuro/Psych: Other (Intubated, sedated)
Other: Skin (Warm, dry, intact)
Data Reviewed
-
Date of Service: November 29, 2023
EKG: Tracing Personally Visualized and interpreted (Complete heart block)
Labs: Labs Reviewed by me
Critical Care Time (in minutes): 42
[2023-11-29 17:08] LABS: Glucose - Point of Care 173 mg/dl (70-99)
[2023-11-29 17:51] LABS: B.E. -1.2 mmol/L; HCO3 23.6 mmol/L (21-28); O2 Saturation % 99.3 % (94-98); PCO2 39 mmHg (32-35); PO2 179 mmHg (83-108); Potassium 4.5 mMOL/L (3.5-5.1); Sodium 140 mMOL/L (136-145); pH 7.39 (7.35-7.45)
[2023-11-29 18:14] LABS: Hematocrit 20.3 % (37.0-47.0); Hemoglobin 7.3 g/dL (12.0-16.0); Platelet Count 152 10^3/uL (130-400)
[2023-11-29] MEDS: PACERONE PO ×2 (18:18→22:12)
[2023-11-29] MEDS: ANCEF 5 IV (18:29)
[2023-11-29 18:34] LABS: Glucose - Point of Care 167 mg/dl (70-99)
--- NOTE | 2023-11-29 18:54 | PTCARENOTE ---
2 FFP and 1 unit PRBCs given without incident. starting milrinone and weaning dobut as tolerated.
[2023-11-29 18:58] LABS: Glucose - Point of Care 169 mg/dl (70-99)
--- NOTE | 2023-11-29 19:00 | PTCARENOTE ---
bedside report received from previous RN, assumed pt care. pt in bed, intubated s/p CVOR. pt has not woken up from sedation yet at this time. pupils equal and reactive. 100% V. paced via epicardial wires, pacer set to VVI 56, mA 5. b/l radial pulses
palpable. DP pulses present by doppler. heart tones clear. LT radial art line intact, SBP 120s, Cardene gtt infusing @ 5mg. RIJ cordis + [place] intact w KVOs infusing. PAPs 30s/10s. CVP ~ 15. last CI 1.52. Dobut gtt infusing @ 6mcg. Milrinone gtt
infusing @ 0.375mcg. b/l breath sounds present. vent set to SIMV 10/450/5/5/40%. POX 100%. CT x4 intact to -20cm wall suction, drainage WNL, no air leak present. pfeiffer catheter intact, draining CYU, UO adequate. hypoactive bowel sounds present.
Insulin gtt infusing per glycemic protocol. MICHELL drain intact to RT calf, minimal drainage noted. all surgical sites stable. see worklist for full assessment, VS, and interventions.
[2023-11-29] MEDS: SENOKOT-S PO (19:56)
[2023-11-29 20:41] LABS: Glucose - Point of Care 191 mg/dl (70-99)
[2023-11-29 20:48] LABS: Mixed Venous O2 Saturation 60.8 %
[2023-11-29 20:50] LABS: B.E. -2.7 mmol/L; HCO3 23.2 mmol/L (21-28); Ionized Calcium 1.25 mMOL/L (1.15-1.33); O2 Saturation % 99.3 % (94-98); PCO2 44 mmHg (32-35); PO2 156 mmHg (83-108); Potassium 4.6 mMOL/L (3.5-5.1); pH 7.33 (7.35-7.45)
[2023-11-29 20:55] LABS: Hematocrit 24.8 % (37.0-47.0); Platelet Count 161 10^3/uL (130-400)
[2023-11-29 23:01] LABS: Glucose - Point of Care 175 mg/dl (70-99)
[2023-11-29 23:14] LABS: B.E. -2.6 mmol/L; HCO3 22.6 mmol/L (21-28); O2 Saturation % 99.6 % (94-98); PCO2 40 mmHg (32-35); PO2 133 mmHg (83-108); pH 7.36 (7.35-7.45)
[2023-11-29 23:17] LABS: Mixed Venous O2 Saturation 66.9 %
[2023-11-30 00:12] LABS: Glucose - Point of Care 171 mg/dl (70-99)
[2023-11-30 01:09] LABS: Glucose - Point of Care 163 mg/dl (70-99)
[2023-11-30 01:16] LABS: Mixed Venous O2 Saturation 59.7 %
[2023-11-30 02:06] LABS: Glucose - Point of Care 143 mg/dl (70-99)
--- NOTE | 2023-11-30 02:54 | ECGCV ---
Vargas Doran PA-c notified of ECG critical value identified by electronic interpretation on ECG completed on 11/30/23, at 0255.
--- NOTE | 2023-11-30 03:00 | PTCARENOTE ---
no acute changes. pt still lethargic, wakes for brief periods, follows commands. AM EKG shows CHB w RBBB. AM labs drawn and sent. vent settings unchanged, POX 98-100%. CT output WNL. UO ~15/hr, CT PA aware. last CI 1.53. Dobut infusing @ 6mcg,
Milrinone infusing @ 0.375mcg. Insulin gtt maintained. all surgical sites stable.
[2023-11-30 03:07] LABS: Glucose - Point of Care 134 mg/dl (70-99)
[2023-11-30] MEDS: ANCEF 5 IV ×2 (03:13→12:40)
[2023-11-30 03:17] LABS: Hematocrit 21.6 % (37.0-47.0); Hemoglobin 7.8 g/dL (12.0-16.0); Mean Corp Hgb Conc. 36.1 g/dL (33.0-37.0); Mean Corpuscular Hgb 29.9 pg (27.0-31.0); Mean Corpuscular Volume 82.8 fL (81.0-99.0); Mean Platelet Volume 8.8 fL (7.4-10.4); Platelet Count 145 10^3/uL (130-400); Red Blood Cell Count 2.61 10^6/uL (4.20-5.40); White Blood Cell Count 14.4 10^3/uL (4.8-10.8)
[2023-11-30 03:20] LABS: B.E. -1.7 mmol/L; HCO3 22.9 mmol/L (21-28); Ionized Calcium 1.27 mMOL/L (1.15-1.33); O2 Saturation % 99.4 % (94-98); PCO2 37 mmHg (32-35); PO2 131 mmHg (83-108); Potassium 4.5 mMOL/L (3.5-5.1)
[2023-11-30 03:23] LABS: Mixed Venous O2 Saturation 55.8 %
[2023-11-30 03:32] LABS: Blood Urea Nitrogen 46 mg/dl (7-17); Carbon Dioxide 23 mmol/L (22-30); Chloride 110 mmol/L (98-107); Estimated Creatinine Clearance 20 ml/min; Glucose 126 mg/dl (70-99); Magnesium 2.5 mg/dl (1.6-2.3); Potassium 4.4 mmol/L (3.5-5.1); Sodium 141 mmol/L (135-145); eGFR 28.66
[2023-11-30 03:43] VITALS: BP 114/56
--- NOTE | 2023-11-30 03:45 | PTCARENOTE ---
labs reviewed w ELIO RIOS. orders received for 1 unit PRBCs.
--- NOTE | 2023-11-30 03:45 | W.PN.CT ---
Today's Communication / Plan
-
-pod #1
-somnolent postop without any sedation, wakes up slightly and opens her eyes when her name is called, able to squeeze R hand weekly- unable to extubate overnight
-has variable BBB: LBBB preop and RBBB postop. Currently, rhythm appears to be nsr with CHB with junctional escape with RBBB
-consider pacer
-maintain epicardial pacing wire
-prolonged Qtc
-Amio and BB held
-CI 1.68, CO 2.69. Drips: Dobut 6, Milrinone 0.375, Cardene 5, Insulin.
-h/h 7.8/21.6 this am - gave 1 pRBC followed by 40 iv Lasix
-CT output: 2 pleur 155/370, 2 meds 40/150 in 12/24 hrs
-CKD/Reese with oliguria (urine output postop 15-20 per hr)
-consider trial of Lasix
-s/p multiple blood products (total 6 pRBCs since 11/27, 2 FFPs, and 1 unit platelets)
-wean off drips as tolerated
-maintain Jones for critical I&O
-maintain pw
-continue insulin
Assessment / Plan
-
Assessment:
-Severe 3v CAD- s/p CABG x 4 (HINDS to LAD, GSV to D2, GSV to OM1, GSV to RPDA) on 11/29/[address] Robins, pod #1
-Intraop SUPRIYA: LVEF 30-35%, global hypokinesis w/ minor improvement in lateral wall, mild MR, mild TR, no AI/, RV OK
-USA
-NSTEMI (peak trop 7.36)
-Hx of CAD S/P PCI with prior 7 stents, most recent stent in 2019
-Plavix washout, last dose on 11/23 @ 0832
-Acute on chronic ICM (LVEF 30% per TTE on 11/22)
-Systolic CHF with recent hospitalization at OSH ([place]) w/ HTN emergency, pulmonary edema requiring intubation - ? Takotsubo CM
-Mild-moderate MR
-Mildly dilated left atrium
-LBBB preop
-Tachycardia
-Hx of Takotsubo syndrome
-REESE on chronic CKD3b (cr 3.0 on 11/20, now 1.8, per family baseline Cr is 1.4)
-Chronic Anemia
-HTN
-HLD
-T2DM (A1C 6.9)
-LETTY lung nodules (7.1 mm, incidental findings from chest CT 11/23)
-Thyroid nodule (1.4 cm, incidental findings from chest CT 11/23)
-Mild right scoliosis
-Acute postop nsr with complete heart block with Junctional escape with RBBB ( had LBBB preop)- maintain epicardial pw, may need pacer postop
-Acute postop blood loss anemia on chronic anemia - s/p 1 pRBC preop 11/27, 3 pRBCs and 1 unit platelet intraop, 1pRBC and 2 FFPs postop 11/28+ 1pRBC on 11/29
-Acute postop coagulopathy
-Cardiogenic shock (postop CO/CI: 1.5/0.95; Preop starting CI 1.4)- requiring inotrops
-Acute postop hypovolemia with subsequent hypervolemia
-Acute postop atelectasis
-Acute postop long Qt
Discussed patient care with: Nursing and Care Team
Subjective
Procedure
- s/p CABG x 4 (HINDS to LAD, GSV to D2, GSV to OM1, GSV to RPDA) on 11/29/[address] Robins
-
Date of Service: November 30, 2023
Objective Data
-
PT 18.7 Sec (11.4-14.6) H 11/29/23 14:56
INR 1.55 11/29/23 14:56
APTT 34.9 Sec (23.4-35.0) 11/29/23 14:56
Vital Signs
Vital Signs
Temp Pulse Resp BP Pulse Ox
98.6 F 60 12 127/72 99
11/30/23 01:00 11/30/23 01:30 11/30/23 01:30 11/29/23 05:04 11/30/23 01:30
CT Intake/Output/Weight
11/29/23 11/29/23 11/30/23
06:59 18:59 06:59
Intake Total 1002.7 / 1498.5 495.8 / 1498.5
Output Total 630 / 980 350 / 980
Balance 372.7 / 518.5 145.8 / 518.5
SaO2: 99
Physical Exam
-
General: Other (somnolent, responded to her name, opened eyes, squeezed hand weekly)
Cardiovascular: Regular rate & rhythm, No Murmurs and Rub
Respiratory: Decreased Breath Sounds
Sternum: Stable
Incision: Clean, Dry and Dressing Intact
Extremities: Edema +1 (of hands b/l. No leg edema. DPs by Doppler b/l)
Data Reviewed
-
Lab Results: Results Reviewed
Medications: Active Meds Reviewed
Chest X-Ray: Report Reviewed and Image Reviewed
ECG: Report Reviewed and Image Reviewed
[2023-11-30 04:00] VITALS: BP 134/62
[2023-11-30] MEDS: OFIRMEV 100 IV (04:39)
[2023-11-30 04:40] VITALS: BP 130/61
[2023-11-30] MEDS: LASIX 40 MG IV (04:41)
[2023-11-30 04:52] LABS: Glucose - Point of Care 119 mg/dl (70-99)
[2023-11-30] MEDS: PRIMACOR 20 MG 100 IV ×2 (04:56→19:17)
--- NOTE | 2023-11-30 05:00 | PTCARENOTE ---
1 unit PRBCs transfused. 40mg IV Lasix and IV Ofirmev given per orders.
[2023-11-30 05:29] LABS: B.E. -3.4 mmol/L; HCO3 21.3 mmol/L (21-28); O2 Saturation % 99.5 % (94-98); PCO2 36 mmHg (32-35); PO2 120 mmHg (83-108); pH 7.38 (7.35-7.45)
--- NOTE | 2023-11-30 05:55 | PTCARENOTE ---
pt placed on SBT @ 0445, ABG drawn and sent @ 5210--results reviewed w CT PA. pt extubated to 6LNC without incident. no wheezing or stridor present. POX 99%. pt AAOx4.
--- NOTE | 2023-11-30 05:55 | RESPNOTE ---
PT was extubated at this time after a short CPAP weaning trial with an acceptable ABG result. PT was subsequently placed on a 6 L nasal cannula and stated her name post intubation. I/S was done just after extubation with the best of 3 attempt
being 650 mls. Ventilator was pulled and vitals are stable.
[2023-11-30] MEDS: TYLENOL PO ×2 (05:57→14:50)
[2023-11-30] MEDS: DILAUDID 0.25 MG IV (06:12)
[2023-11-30 06:30] VITALS: BMI 29.4
[2023-11-30 06:56] LABS: Glucose - Point of Care 105 mg/dl (70-99)
[2023-11-30 07:07] LABS: Mixed Venous O2 Saturation 67.6 %
--- NOTE | 2023-11-30 07:21 | W.PN.ANS.POP ---
Anesthesia Post Operative
- Anesthesia Post Op Note
Vital Signs Stable-See Nursing Note: Yes
Airway Patent: Yes
Adequate Pain Control: Yes
Change in Mental Status: No
Current Postoperative Nausea & Vomiting: No
Anesthesia Complications: No
General Anesthetic Recall: No
Unplanned Admission: No
Post Op Hydration Adequate: Yes
- -
Selected Entries
11/30/23
07:00
Pulse 71
Resp Rate 9
SaO2 100
Arterial Systolic Pressure 124
Arterial Diastolic Pressure 62
MAP (B-Cvrp-Iarexsf Monitor) 76
Pulmonary Artery Systolic Pressure 30
Pulmonary Artery Diastolic Pressure 20
Right Atrial Pressure (RA) 17
--- NOTE | 2023-11-30 07:25 | W.PN.CD ---
Today's Communication / Plan
-
Wean dobutamine off
Follow UO and renal fn carefully
Impression / Plan
-
BACKGROUND: 78F with CAD, last stent 2019, ICM EF 40%, chronic systolic HF, NIDDM, HTN, HLD, and CKD3 with recent hospitalization at [facility] with HTN emergency, pulm edema, requiring intubation and diagnosis of possible Takotsubo CM presents with
weakness. She did not undergo cath. She was discharged home, and then presented to with weakness on 11/19. She was found to have an KELLIE and a mildly elevated troponin. Echo 11/20/23 showed EF 35-40%, global HK, mild/mod MR, nl RV, mild TR, PASP 35.
Then, on evening of 11/21, had episode of chest pain, which appears to be in setting of NSTEMI. She was reloaded with ASA, continued on Plavix; and started on heparin and nitro drips.
CAD/NSTEMI
-Status-post CABG x4 today.
-Previous PCI to RCA, LAD, and Circ in past; last 2019.
-On ASA
Complete heart block status-post CABG:
-Temporary pacemaker in place.
-Continue clinical research monitor.
- I don't yet see indication for permanent pacing- will need ICD if device implant needed. May need ICD if LVEF < 35% in 3 mo
Acute HFrEF/ICM EF (30%):
-Currently on dobutamine and milrinone. The dobutamine being weaned off as milrinone effect takes over
-GDMT throughout hospitalization once extubated and off dobutamine.
-Continue supportive care. Follow urine output
KELLIE on CKD3b
-family reports b/l Cr of 1.4; was 3 on admit; currently 1.8.
-Continue to monitor; Nephrology following.
HTN
-She had HTN Urgency at prior hospitalization, which was believed to prompt pulmonary edema
-meds limited by KELLIE on CKD
-Resume Coreg once extubated and off dobutamine.
Type II DM
Anemia
- Has AOCD now exacerbated by postop bleeding. Total 6U PRBC so far. Hb 7.8
Still critical but clearly improving. ECG without sign of injury.
discussed with CTS team and updated dtr
CCT 32min
Physical Exam
Vital Signs/Labs
Vital Signs
Temp Pulse Resp BP Pulse Ox
98.4 F 71 9 133/61 100
11/30/23 06:00 11/30/23 07:00 11/30/23 07:00 11/30/23 04:41 11/30/23 07:00
11/29/23 11/30/23 12/01/23
06:59 06:59 06:59
Actual Weight 135 lb 5.821 oz
11/30/23 03:02
11/30/23 03:02
PT 18.7 Sec (11.4-14.6) H 11/29/23 14:56
INR 1.55 11/29/23 14:56
APTT 34.9 Sec (23.4-35.0) 11/29/23 14:56
Magnesium 2.5 mg/dl (1.6-2.3) H 11/30/23 03:02
Triglycerides 113 mg/dl (10-149) 11/24/23 04:50
LDL Cholesterol, Calc 63 mg/dl 11/24/23 04:50
VLDL Cholesterol, Calc 22 mg/dl (0-30) 11/24/23 04:50
HDL Cholesterol 44 mg/dl 11/24/23 04:50
11/20/23 11/22/23 11/24/23
07:36 20:15 04:50
Qyw-B-Jjcolxvzvob Pept 1140 1950 22662
Physical Exam
Constitutional: No acute distress and Comfortable
Cardiovascular: Rhythm & rate is regular, S1S2 is normal and Murmur/rub/gallop absent
Respiratory: Respiratory effort normal, Wheeze Absent, Crackles Absent and Rhonchi Present
GI: Non tender
Neuro/Psych: AO x 3 and Motor deficits absent
Data Reviewed
-
Date of Service: November 30, 2023
--- NOTE | 2023-11-30 08:00 | PTCARENOTE ---
resumed care of patient from previous RN. pt awake but drowsy and resting in bed. pupils equal and reactive. Moves all extremities. sinus arrhythmia with V-pacing. pacer set to VVI 56/5/0.5. DP pulses present by doppler. remains with all usual
lines. CI 1.7. Dobut gtt infusing @ 5mcg. Milrinone gtt infusing @ 0.375mcg. Insulin gtt infusing per glycemic protocol. POX 100% on 6L nc. weaned to 5L. CT x4 intact to -20cm wall suction, draining serosang fluid. pfeiffer draining clear yellow. +bs.
no complaints of nausea. tolerated water and medications. MICHELL drain intact with no drainage. all surgical sites stable. will continue to monitor.
[2023-11-30] MEDS: PLAVIX 75 MG PO (08:07)
[2023-11-30] MEDS: NEURONTIN 100 MG PO (08:07)
[2023-11-30] MEDS: SENOKOT-S 1 TABLET PO (08:07)
[2023-11-30] MEDS: LIDOCAINE 4% PATCH 1 PATCH TOPICAL (08:07)
[2023-11-30] MEDS: PROTONIX 40 MG PO (08:07)
[2023-11-30] MEDS: CRESTOR 10 MG PO (08:07)
[2023-11-30] MEDS: LOW STRENGTH ASPIRIN 81 MG PO (08:07)
[2023-11-30] MEDS: ROXICODONE 5 MG PO (08:07)
[2023-11-30] MEDS: BACTROBAN 2% OINTMENT 1 APPLIC NASAL ×2 (08:08→21:09)
[2023-11-30] MEDS: NSS IV (08:13)
--- NOTE | 2023-11-30 08:24 | PN.DE.MGMTRT ---
Insulin Management
- -
11/30/2023 Diabetes Management Consult
Patient admitted 11/19 with weakness, found to have elevated cr and troponin. [facility] recent hospitalization @ [place] for chf pneumonia requiring intubation, severe CAD with 7 stents, CHF, HTN, diabetes. Prior to admission patient was taking
metformin 500 mg BID. A1C is 6.9, cr today 1.8, eGFR 28.66.
Patient sleeping not disturbed, two daughters at bedside. Spoke with daughter regarding diabetes care.
POD 1 s/p CABG x 4. Currently on critical care glycemic protocol insulin infusion requiring 1.5 to 4 units of insulin per hour. Will continue insulin infusion today and assess for readiness to transition tomorrow.
Will consider Jardiance or Farxiga for transition if cr and eGFR appropriate.
Diabetes History
- -
Type of Diabetes: 2
Pre-Admission Diabetes Regimen
11/29/23 11/29/23 11/30/23
06:00 14:56 03:02
Creatinine Cancelled 1.4 H 1.8 H
Lab Results
Hemoglobin A1c 6.9 % (4.0-5.6) H 11/21/23 06:58
Insulin Pump Settings
IP Diabetes Regimen
11/29/23 11/29/23 11/29/23
06:00 14:54 14:56
Glucose Cancelled 129 H
POC Glucose 142 H
11/29/23 11/29/23 11/29/23
16:05 17:06 18:33
Glucose
POC Glucose 176 H 173 H 167 H
11/29/23 11/29/23 11/29/23
18:57 20:40 22:59
Glucose
POC Glucose 169 H 191 H 175 H
11/30/23 11/30/23 11/30/23
00:10 01:07 02:04
Glucose
POC Glucose 171 H 163 H 143 H
11/30/23 11/30/23 11/30/23
03:02 03:05 04:51
Glucose 126 H
POC Glucose 134 H 119 H
11/30/23
06:54
Glucose
POC Glucose 105 H
Patient Education
[2023-11-30 10:30] LABS: Hematocrit 24.9 % (37.0-47.0); Mean Corp Hgb Conc. 36.1 g/dL (33.0-37.0); Mean Corpuscular Volume 85.9 fL (81.0-99.0); Mean Platelet Volume 9.7 fL (7.4-10.4); Platelet Count 149 10^3/uL (130-400); Red Cell Dist. Width 15.1 % (11.5-14.5); White Blood Cell Count 15.1 10^3/uL (4.8-10.8)
--- NOTE | 2023-11-30 12:00 | PTCARENOTE ---
patient very somnolent. Able to wake but with much effort. BLANCA aware as well as Dr Robins. additional labs ordered and drawn.
[2023-11-30] MEDS: DOBUTREX 500 MG 250 IV (12:40)
[2023-11-30 12:55] LABS: Glucose - Point of Care 81 mg/dl (70-99)
[2023-11-30 12:55] LABS: Glucose - Point of Care 102 mg/dl (70-99)
[2023-11-30 12:55] LABS: Glucose - Point of Care 102 mg/dl (70-99)
[2023-11-30] MEDS: NOVOLIN R INSULIN INFUSION 100 IV (13:55)
[2023-11-30] MEDS: FERRLECIT 110 MG IV (13:58)
--- NOTE | 2023-11-30 14:25 | W.PN.INTV ---
Today's Communication / Plan
Recommendations
Continue milrinone infusion and trend CO/CI
Goal CI >2.5, CO>4
Maintain MAP >65
Limit narcotic use given she is very lethargic currently
Can monitor pCO2 with end-tidal CO2, otherwise obtain serial blood gas
Goal SpO2 >90-94%
Once mental status improves, allow patient to get up out of bed, and encourage incentive spirometer use
Reproductive Healthcare Assistant/pulmonary service will continue to follow along given patient remains on milrinone and is CVICU status.
Assessment
-
78-year-old AAF with a PMHx of hypertension, hyperlipidemia, HFrEF, DM type II, CKD and CAD s/p coronary stents who presented with family due to increased sugar and fatigue. Apparently blood glucose was in the 4�500 range at home. She was recently
hospitalized at [facility] due to fluid around her heart, and she also was apparently intubated during that hospitalization for several days. In the ER she was afebrile to 98.3 �F, pulse rate 69, breathing at 16 breaths/min, blood pressure
136/73 and saturating 97% on room air. Initial labs showed Hb 9.5, creatinine 2.9, BUN 75, potassium 5.2, troponin 0.087, proBNP 1140, urinalysis negative for UTI, beta-hydroxybutyrate 0.19. Initial CXR showed RLL airspace/interstitial opacities
suspicious for pneumonia versus asymmetric pulmonary edema. She was started on antibiotics with cefepime, IV vancomycin and was admitted to telemetry under the hospitalist. Cardiology and nephrology were consulted. Rapid response called on 11/21
due to chest pain and shortness of breath. Nitro given without relief and Lasix 20 mg IV push given as well. Patient transferred to the ICU for further care with heparin drip started given concern for ACS versus PE. Echo showed reduced LVEF at
30% and more pronounced lateral/inferolateral hypokinesis. Troponin considerably increased and peaked at 7.36 on 11/23/2023. Of note, VQ scan obtained on 11/22 showed low risk study for PE. Patient underwent left heart catheterization on 11/23
showing severe multisegment triple-vessel CAD. CT chest on 11/23 also showed progressive small bilateral pleural effusions with lung nodules including a subpleural 7.1 mm GGO in the right upper lobe. Cardiothoracic surgery was consulted, and on
11/29/2023 she underwent CABG x 4 with no complications, and transferred to the CVICU on dobutamine, insulin, and 4 chest tubes (bilateral pleural, inferior mediastinal + superior mediastinal). Critical care services now consulted for additional
management/recommendations.
Impression:
Multivessel CAD s/p multiple coronary stents s/p CABG x 4 (POD#1)
Acute coronary syndrome with NSTEMI
Acute on chronic HFrEF/ICM
Hypertensive urgency at prior hospitalization prompted pulmonary edema
Pneumonia-right lower lobe
Hypoxemic and hypercapnic respiratory insufficiency
KELLIE on top of chronic kidney disease
Multiple pulmonary nodules including 7.1 mm subpleural GGO in the right upper lobe
Anemia
QT prolongation (QTc: 515ms from today's EKG)
Hyperglycemia
Left foot pain
Fecal impaction
Transaminitis
Umbilical hernia
DJD
Conditions present prior to admission:
Hypertension.
Hyperlipidemia.
CHF reduced EF-EF 40%
Chronic systolic heart failure
CAD-last stent 2018
Chronic renal failure.
Diabetes. 2 cm left renal simple cyst
Cholecystectomy
Plan:
Patient successfully extubated, and is currently breathing comfortably on 2 L per nasal cannula with SpO2 96%
O2 flow rate will be titrated to keep goal SpO2 >90-94%
prn nebulized bronchodilators
Pulmonary artery catheter parameters will be followed
Pressors/antihypertensive/inotropes/diuretics will be provided as needed
Continue with milrinone and titrate based on CO/CI
Monitor chest tube output
Monitor hemoglobin
Monitor platelet count and coags
Transfuse blood product if needed to keep Hb >8g/dL, plt>50k (given post-operative status)
-Last transfusion was overnight with 1 unit PRBC, with Hb rising from 7.[address] surgery managing chest tubes x 4 (mediastinal x 2, left + right pleural chest tubes)
Given concern for RLL pneumonia, she is already s/p course of antibiotics with Doxy + Zosyn x 2 days s/p IV vanco x 2 doses, cefepime x1 dose in ER, and rocephin x 2 doses
Ranolazine was previously being held given QT prolongation
Bowel regimen
Monitor blood sugar with goal BG 140-180mg/dL
Insulin drip per protocol
Given patient has multiple pulmonary nodules seen on CT chest from 11/24/2023, would repeat CT chest imaging without contrast in about 4-6 weeks to assess for resolution versus persistence of these nodules
Aspiration precautions
VAP prevention protocol
DVT prophylaxis
Early nutrition
Early mobilization
Considering patient remains CVICU status on milrinone, Reproductive Healthcare Assistant/Pulmonary service will continue to follow along. Once she is downgraded then we will sign off at that time.
Critical care statement: A total of 41 minutes of critical care time was provided for this patient today. This includes management of ventilator, spontaneous breathing trial, arterial blood gases, pressors, of unstable vital signs, evaluation of the
patient at bedside, reviewing the patient's pertinent medical records including radiographs, microbiology, laboratory evaluations, and discussion with primary team and critical care nursing.
Diagnostic data:
Chest x-ray 11/20/2023-right lower lobe asymmetrical pulm edema versus developing pneumonia, heart enlarged
Chest x-ray 11/22/2023-progressive right lower lobe pneumonia mild degree of pulmonary vascular congestion
Chest x-ray 11/29/2023- New postoperative changes; no pneumothorax; minimal left pleural effusion
Chest x-ray- Stable support devices. No active pulmonary process.
Renal ultrasound 11/20/2023-simple upper pole right renal cyst measuring 3.9 cm, unremarkable otherwise
CT head 11/21/2023-no acute intracranial abnormalities, diffuse cortical atrophy
CT Chest 11/24/2023:
Progressive small bilateral pleural effusions and adjacent compressive atelectasis.
Pulmonary nodules, as described, with groundglass nodule measuring up to 7.1 mm. Recommend follow-up in 6-12 months.
1.4 cm left thyroid low-attenuation nodule. Consider nonemergent follow-up ultrasound assessment.
CT abdomen and pelvis 11/21/2023-moderate volume widespread colonic stool, 4 cm simple right renal cyst, prior cholecystectomy, small fat-containing umbilical hernia
Echocardiogram 11/20/2023-EF 35-40%, global hypokinesis, moderate mitral regurgitation, PA systolic 35
Subjective Dataa
Subjective Data
Date of Service:
Date of Service: November 30, 2023
Chief Complaint: Reproductive Healthcare Assistant Follow Up
Subjective:
Pt seen and evaluated today - when I saw her she was sleepy, but had gotten pain meds prior. Family members at bedside. Pt does arouse to voice but then quickly falls back asleep. She is on 2L/min NC with SpO2 96%, HR 56, BP 133/60, PAP 35/22 and
CO/CI: 2.64/1.65. She is on milrinone at 0.375mcg/kg/min.
Review of Systems
General: Unobtainable - Pat Unresp (Patient minimally responsive/sleepy)
Objective Data
Data Reviewed
Vital Signs / I&O / Oxygen:
Vital Signs
Temp Pulse Resp BP Pulse Ox
98.5 F 59 0 133/61 100
11/30/23 09:27 11/30/23 09:27 11/30/23 09:15 11/30/23 04:41 11/30/23 09:27
Intake and Output
11/29/23 11/30/23 12/01/23
06:59 06:59 06:59
Intake Total 500 / 500 2010.4 / 2010.4 134.3 / 134.3
Output Total 1200 / 1200 180 / 180
Balance 500 / 500 811.4 / 811.4 -45.7 / -45.7
SaO2 [CPAP/PSV] 100
SaO2 [SIMV] 100
SaO2 100
Nasal Cannula flow liters per 4
minute
Physical Exam
General: Respiratory Distress (Negative) and Comfortable
HEENT: Normocephalic and Anicteric
Cardiovascular: S1-S2 and Peripheral Edema (Negative)
Respiratory: Wheeze (Negative), Crackles (Negative), Rhonchi (Negative), Non-Labored Respirations and Chest Tube (X 4 (mediastinal x 2+ left/right pleural chest tubes))
GI: Soft, Non Distended, Non Tender and Normal Bowel Sounds
Neurology: Lethargic (Sleeping, easily arousable with tactile stimulation but then quickly falls back asleep)
Skin: Warm, Dry and Jaundice (Negative)
Labs/Micro/Reports
Lab Data
11/30/23 03:02
Laboratory Results
11/29/23 11/29/23 11/29/23
14:56 17:40 20:34
PT 18.7 H
INR 1.55
APTT 34.9
pH 7.37 7.39 7.33 L
pCO2 38 H 39 H 44 H
pO2 178 H 179 H 156 H
HCO3 22.0 23.6 23.2
O2 Delivery Level
11/29/23 11/30/23 11/30/23
23:01 03:02 05:21
PT
INR
APTT
pH 7.36 7.40 7.38
pCO2 40 H 37 H 36 H
pO2 133 H 131 H 120 H
HCO3 22.6 22.9 21.3
O2 Delivery Level
--- NOTE | 2023-11-30 14:26 | W.PN.NEPH.PH ---
Today's Communication / Plan
-
- Cr stable
Assessment/Plan
-
Assessment:
NSTEMI-MVD- s/p CABG x4 11/29/23
KELLIE on ?CKD
HyperK
Constipation
Weakness
C/f PNA
Plan:
s/p CABG today, SUPRIYA EF 35-40%
cr post op at 1.8
on dobutamine per primary
monitor UOP with pfeiffer
follow labs
cont supportive care
d/w nursing
-
-
Date of Service: November 30, 2023
CC / HPI / ROS
-
Chief Complaint:
KELLIE
History of Present Illness:
Cr 1.8 post op, CABG x4 11/28
BP [id number] on dobutamine , reportedly CI is low
hb at 8.8 s/p 3 units pRBC, 1 unit plt
Review of Systems:
sedated and intubated FIo2 40%
Labs
-
Labs:
WBC 15.1 10^3/uL (4.8-10.8) H 11/30/23 09:53
RBC 2.90 10^6/uL (4.20-5.40) L 11/30/23 09:53
Hgb 9.0 g/dL (12.0-16.0) L 11/30/23 09:53
Hct 24.9 % (37.0-47.0) L 11/30/23 09:53
Plt Count 149 10^3/uL (130-400) 11/30/23 09:53
Sodium 141 mmol/L (135-145) 11/30/23 03:02
Potassium 4.4 mmol/L (3.5-5.1) 11/30/23 03:02
Chloride 110 mmol/L (98-107) H 11/30/23 03:02
Carbon Dioxide 23 mmol/L (22-30) 11/30/23 03:02
BUN 46 mg/dl (7-17) H 11/30/23 03:02
Creatinine 1.8 mg/dL (0.6-1.0) H 11/30/23 03:02
eGFR 28.66 11/30/23 03:02
Glucose 126 mg/dl (70-99) H 11/30/23 03:02
Calcium 9.0 mg/dl (8.4-10.2) 11/30/23 03:02
Snn-M-Wfqyfvjvygy Pept 97913 pg/ml 11/24/23 04:50
Albumin Cancelled 11/29/23 06:00
Physical Exam
-
Vital Signs:
Vital Signs
Temp Pulse Resp BP Pulse Ox
99.2 F 58 13 133/61 92
11/30/23 14:00 11/30/23 14:00 11/30/23 14:00 11/30/23 04:41 11/30/23 14:00
Cardiovascular:: Regular rate and rhythm
Respiratory:: Bilateral: Coarse
Lung Excursion:: Normal
Abdomen:: Distended, Nontender and Soft
Bowel Sounds:: Normal
Extremity Edema:: +1: Bilateral:
Pfeiffer Catheter: Yes
--- NOTE | 2023-11-30 14:50 | PTCARENOTE ---
BLANCA , Pat at bedside removing MICHELL drain from R leg.
[2023-11-30 15:13] LABS: Glucose - Point of Care 102 mg/dl (70-99)
[2023-11-30 15:16] VITALS: BP_SYST 89
[2023-11-30 15:37] LABS: Mixed Venous O2 Saturation 57.9 %
[2023-11-30 15:39] LABS: B.E. -2.4 mmol/L; HCO3 22.5 mmol/L (21-28); Ionized Calcium 1.25 mMOL/L (1.15-1.33); O2 Saturation % 99.5 % (94-98); PCO2 38 mmHg (32-35); PO2 121 mmHg (83-108); Potassium 4.5 mMOL/L (3.5-5.1); Sodium 140 mMOL/L (136-145); pH 7.38 (7.35-7.45)
[2023-11-30 16:39] LABS: Lactic Acid 0.9 mmol/L (0.7-2.0)
[2023-11-30 16:40] LABS: Hemoglobin 8.4 g/dL (12.0-16.0)
[2023-11-30 16:55] LABS: Blood Urea Nitrogen 49 mg/dl (7-17); Calcium 8.9 mg/dl (8.4-10.2); Carbon Dioxide 26 mmol/L (22-30); Chloride 109 mmol/L (98-107); Estimated Creatinine Clearance 17 ml/min; Glucose 82 mg/dl (70-99); Potassium 4.5 mmol/L (3.5-5.1); Sodium 139 mmol/L (135-145); eGFR 23.82
[2023-11-30 16:59] LABS: Glucose - Point of Care 82 mg/dl (70-99)
[2023-11-30] MEDS: FLEXBUMIN 100 IV (18:07)
[2023-11-30 18:25] LABS: B.E. -2.3 mmol/L; HCO3 22.4 mmol/L (21-28); Ionized Calcium 1.24 mMOL/L (1.15-1.33); O2 Saturation % 99.1 % (94-98); PCO2 37 mmHg (32-35); PO2 139 mmHg (83-108); Potassium 4.5 mMOL/L (3.5-5.1); Sodium 139 mMOL/L (136-145); pH 7.39 (7.35-7.45)
[2023-11-30 19:15] LABS: Glucose - Point of Care 97 mg/dl (70-99)
[2023-11-30 19:23] LABS: Hepatitis B Surface Antigen Negative (Negative)
[2023-11-30 19:41] LABS: Hepatitis B Core Ab, Total Negative (Negative); Hepatitis B Surface Antibody Positive; Hepatitis C Antibody Negative (Negative)
[2023-11-30 19:42] LABS: Hepatitis A Antibody, Total Positive (Negative)
[2023-11-30 20:31] LABS: Hepatitis A IgM Antibody Negative (Negative); Hepatitis B Core Ab, IgM Negative (Negative)
--- NOTE | 2023-11-30 20:45 | PTCARENOTE ---
Report received from ROBERT Hopkins. Walking rounds done at bedside. Pt assessed. VS recorded. Pt lethargic, drowsy. Attempted to open eyes when nurse called her name. She did open eyes briefly (< 10 seconds) when daughter called her name. Weak vp clinical to
command (questionable) and weakly moved B feet when asked to follow simple commands (vp clinical and toe wiggling). Will occasionally moan, clears throat spontaneously. Mouth care done. Pt on 2L/NC. Sats 95%. BBS present. Decreased to B bases. Decreased
t/o. Audible heart tones. V paced with V wire and temp PM. V paced at 56, mA 5, sensitivity at 0.8. Aquacel dry and intact. CTs x 4 all to -20 cm suction. Q 1 hr outputs recorded. SSG drainage. CT dressing and pacing wire dressing dry and intact.
Palpable radial pulses. Pulses to B DP and PT found via doppler. L radial A-line with pulsatile waveform, armboard intact. RIJ [place] June catheter levelled and zeroed. Pulsatile PA and CVP waveforms. Milrinone gtt infusing at 0.375 mcg/kg/min. CI
done at 2042 and is 1.69, SVR 1629. To get MVO2 and ABG with lytes at 2200. Belly soft. Hypoactive bowel sounds x 4. RLE with Aquacel dressing to R knee, Steril 4x4 gauze to R lower leg and R groin dressing. Jones to gravity drain. Draining clear,
yellow urine. Hourly UO monitored and documented. Glycemic protocol. Insulin gtt infusing per protocol.
[2023-11-30] MEDS: SENOKOT-S PO (21:08)
[2023-11-30 21:13] LABS: Glucose - Point of Care 89 mg/dl (70-99)
[2023-11-30 22:33] LABS: Mixed Venous O2 Saturation 53.8 %
[2023-11-30 22:35] LABS: B.E. -2.1 mmol/L; HCO3 22.2 mmol/L (21-28); Ionized Calcium 1.26 mMOL/L (1.15-1.33); O2 Saturation % 98.9 % (94-98); PCO2 35 mmHg (32-35); PO2 88 mmHg (83-108); Potassium 4.6 mMOL/L (3.5-5.1); Sodium 140 mMOL/L (136-145); pH 7.41 (7.35-7.45)
[2023-11-30 23:54] LABS: Glucose - Point of Care 106 mg/dl (70-99)
[2023-12-01] VITALS (38 sets, daily range): BP systolic 89–133; BP diastolic 51–72; BMI 29.0
[2023-12-01] MEDS: CARDENE 200 IV (00:04)
[2023-12-01] MEDS: TYLENOL PO ×4 (00:04→20:41)
--- NOTE | 2023-12-01 00:45 | PTCARENOTE ---
Lab work drawn at 2230. MVO2 and ABG with lytes reported to Vargas RIOS. CI 1.67 on Milrinone gtt at 0.375 mcg/kg/min. Bath completed. CT and PW dressing changes done. Foam changed to sacral wound. See flowsheets. Pt moaning at times throughout bath.
Attempts to open eyes at times. Remains lethargic, drowsy. Pupils 3/sluggish. Occasional spontaneous movement of her LLE.
Pt with intrinsic rhythm competing with pacer < SB vs junctional. PA aware and at bedside. Temp PPM set to 50. CI is 1.63 with current rhythm.
Cardene gtt on briefly with bath, per PA, for SBP 140's. Off at 0115. To get lab work at 0200.
Daughter remains with pt overnight. Updated on pt status throughout the night. Linens provided.
[2023-12-01] MEDS: FLEXBUMIN 100 IV ×2 (01:00→09:02)
[2023-12-01] MEDS: OFIRMEV 100 IV (02:04)
[2023-12-01 02:29] LABS: Glucose - Point of Care 105 mg/dl (70-99)
--- NOTE | 2023-12-01 02:30 | PTCARENOTE ---
Pt moaning. Remains lethargic, drowsy. Does not open eyes to name. PA aware. IV Ofirmev given per order. Pt calmer after infusion.
Lab work drawn and sent.
Milrinone gtt infusing at 0.375 mcg/kg/min. Last CI 1.63. MVO2 pending. Cardene gtt remains off.
Pt on 2 L/NC. Sats 96%. ABG pending. Heart rhythm junctional with sinus bradycardia beats, rate 55. Back up pacing rate at 50, VVI.
Last UO 30 mls for 2 am hour.
Daughter remains at bedside.
[2023-12-01 02:58] LABS: Hemoglobin 7.7 g/dL (12.0-16.0); Mean Corp Hgb Conc. 36.7 g/dL (33.0-37.0); Mean Corpuscular Volume 84.7 fL (81.0-99.0); Mean Platelet Volume 10.3 fL (7.4-10.4); Mixed Venous O2 Saturation 55.5 %; Platelet Count 116 10^3/uL (130-400); Red Blood Cell Count 2.48 10^6/uL (4.20-5.40); Red Cell Dist. Width 15.5 % (11.5-14.5); White Blood Cell Count 12.5 10^3/uL (4.8-10.8)
--- NOTE | 2023-12-01 03:15 | PTCARENOTE ---
H&H results shared with BLANCA Kaye. MVO2 55.5 on Milrinone at 0.375 mcg/kg/min.
[2023-12-01 03:16] LABS: B.E. -2.2 mmol/L; HCO3 22.1 mmol/L (21-28); Ionized Calcium 1.28 mMOL/L (1.15-1.33); O2 Saturation % 98.6 % (94-98); PCO2 34 mmHg (32-35); PO2 82 mmHg (83-108); Potassium 4.4 mMOL/L (3.5-5.1); Sodium 140 mMOL/L (136-145); pH 7.42 (7.35-7.45)
[2023-12-01 03:17] LABS: ALT (SGPT) 12 U/L (0-35); AST (SGOT) 60 U/L (14-36); Albumin 3.4 g/dl (3.5-5.0); Alkaline Phosphatase 41 U/L (38-126); Blood Urea Nitrogen 53 mg/dl (7-17); Calcium 9.2 mg/dl (8.4-10.2); Carbon Dioxide 20 mmol/L (22-30); Chloride 109 mmol/L (98-107); Estimated Creatinine Clearance 16 ml/min; Glucose 92 mg/dl (70-99); Magnesium 2.5 mg/dl (1.6-2.3); Potassium 4.3 mmol/L (3.5-5.1); Sodium 140 mmol/L (135-145); Total Bilirubin 0.7 mg/dl (0.2-1.3); Total Protein 5.4 g/dl (6.3-8.2); eGFR 22.53
[2023-12-01 04:41] LABS: Glucose - Point of Care 86 mg/dl (70-99)
--- NOTE | 2023-12-01 05:32 | W.PN.CT ---
Addendum entered and electronically signed by Almas Robins MD 12/01/23 08:16:
CARDIAC SURGERY ATTENDING:
POD#2 s/p CABG x 4
N: Remains somnolent and minimally responsive this AM. She opens eyes to voice w/ concurrent tactile stimuli, very weak B/L hand grasp to command, no significant LE movement to command. - STAT CT-H obtained - radiology read pending, but not acute
ICH or large CVA on my review. LFTs OK, NH3 not elevated. ABG w/o hypoxemia/hypercarbia.
P: ABG ok on NC O2, HOB > 30 degress
CV: Pt. w/ continued CHB w/ junctional rate in mid 50s. Appreciate my EP colleagues assistance, and agree w/ plans for AICD/PPM today. HD remain largely unchanged. Maintain milrinone at 0.375 today. D/C mediastinal CTs after PPM, maintain
pleural CTs. Continue ASA/plavix.
GI: NPO
: Creat to 2.2 from 2.1 (1.7-1.8 preop); UO: 20-45/hr. Diuresis today
HEME: Hgb 7.7 - trend, hold on additional transfusion for now
ID: WBC: 12.5 (from 15.1), afebrile
ENDO: BS 92 this AM, follow accu checks
PROPH: SCDs, protonix
DISPO: ICU, full code
Original Note:
Today's Communication / Plan
-
-pod #2
-remains somnolent, responds to voice, opens eyes, unable to take po meds - holding all narcs
-remains in CHB with junctional escape mid 50s with RBBB. NPO in case requires device. Maintain pw. Holding BB and Amio
-CI 1.68, CO 2.68. mVO2 55.5. Drips: Milrinone 0.375, Insulin
-Cr trended up - 2.2 (2.1-1.8 on 11/29 and 1.7-1.8 preop). Consider decreasing Milrinone dose to 0.25 for CrCl
-CT output: 2 pleur 120/250, 2 meds 40/110 in 12/24 hrs
-follow UO 280/585 in 12/24 hrs (20-45cc/hr). Diurese
-Hg is 7.7/21.0 today
-may need NGT for po meds if remains somnolent
Assessment / Plan
-
Assessment:
-Severe 3v CAD- s/p CABG x 4 (HINDS to LAD, GSV to D2, GSV to OM1, GSV to RPDA) on 11/29/[address] Robnis, pod #2
-Intraop SUPRIYA: LVEF 30-35%, global hypokinesis w/ minor improvement in lateral wall, mild MR, mild TR, no AI/, RV OK
-[place]
-NSTEMI (peak trop 7.36)
-Hx of CAD S/P PCI with prior 7 stents, most recent stent in 2018
-Plavix washout, last dose on 11/23 @ 0832
-Acute on chronic ICM (LVEF 30% per TTE on 11/22)
-Systolic CHF with recent hospitalization at [facility] ([place]) w/ HTN emergency, pulmonary edema requiring intubation - ? Takotsubo CM
-Mild-moderate MR
-Mildly dilated left atrium
-LBBB preop
-Tachycardia
-Hx of Takotsubo syndrome
-KELLIE on chronic CKD3b (cr 3.0 on 11/20, now 1.8, per family baseline Cr is 1.4)
-Chronic Anemia
-HTN
-HLD
-T2DM (A1C 6.9)
-LETTY lung nodules (7.1 mm, incidental findings from chest CT 11/23)
-Thyroid nodule (1.4 cm, incidental findings from chest CT 11/23)
-Mild right scoliosis
-Acute postop nsr with complete heart block with Junctional escape with RBBB ( had LBBB preop)- maintain epicardial pw, may need pacer postop
-Acute postop blood loss anemia on chronic anemia - s/p 1 pRBC preop 11/27, 3 pRBCs and 1 unit platelet intraop, 1pRBC and 2 FFPs postop 11/28+ 1pRBC on 11/29
-Acute postop coagulopathy
-Cardiogenic shock (postop CO/CI: 1.5/0.95; Preop starting CI 1.4)- requiring inotrops
-Acute postop hypovolemia with subsequent hypervolemia
-Acute postop atelectasis
-Acute postop long Qt
-KELLIE on CKD
-Acute postop lethargy- responds to voice, holding narcotics
Discussed patient care with: Nursing and Care Team
Subjective
Procedure
- s/p CABG x 4 (HINDS to LAD, GSV to D2, GSV to OM1, GSV to RPDA) on 11/29/[address] Robins
-
Date of Service: December 01, 2023
Objective Data
-
Lab Results
12/01/23 02:17
12/01/23 02:17
PT 18.7 Sec (11.4-14.6) H 11/29/23 14:56
INR 1.55 11/29/23 14:56
APTT 34.9 Sec (23.4-35.0) 11/29/23 14:56
Vital Signs
Vital Signs
Temp Pulse Resp BP Pulse Ox
99.5 F 55 12 101/51 99
12/01/23 04:00 12/01/23 05:00 12/01/23 05:00 12/01/23 00:59 12/01/23 05:00
CT Intake/Output/Weight
11/30/23 11/30/23 12/01/23
06:59 18:59 06:59
Intake Total 1008.7 / 2011.4 445.8 / 1191.4 745.6 / 1191.4
Output Total 570 / 1200 505 / 945 440 / 945
Balance 438.7 / 811.4 -59.2 / 246.4 305.6 / 246.4
SaO2: 99
Physical Exam
-
General: Other (somnolent, opens eyes to voice, moans when in pain)
Cardiovascular: Regular rate & rhythm, No Murmurs and Rub
Respiratory: Decreased Breath Sounds
Sternum: Stable
Incision: Clean, Dry and Dressing Intact
Extremities: Edema +1 (DPs and PTs by Doppler b/l)
Data Reviewed
-
Lab Results: Results Reviewed
Medications: Active Meds Reviewed
Chest X-Ray: Report Reviewed and Image Reviewed
ECG: Report Reviewed and Image Reviewed
--- NOTE | 2023-12-01 06:28 | PTCARENOTE ---
EKG and CXR done.
--- NOTE | 2023-12-01 07:00 | PTCARENOTE ---
Bedside walking rounds report received. Patient seen on rounds: lethargic resting in bed: occasional moan but essentially nonverbal: patient is shortly going to be taken for a stat CT of the head. MVO2 and all other stat labs being sent ulysses.
Periods of sinus mirian, junctional rhythm and CHB this am on monitor with 1:1 v pacing at backup rate of 50bpm. Slight movement of all extremities, but not following direction.. Primacor gtt at 0.375 mcg/kg/min: CI's 1. 6 to 1.7. Chests tubes x 4 (2
meds and right/left pleural chest tubes) to -20cm wall suction without air leak or 'dumping.' Repositioned to right side. See flow record for remaining assessments.
--- NOTE | 2023-12-01 07:05 | PTCARENOTE ---
Stat labs and ABG/MVO2 sent this am. Dr. Robins at bedside to examine pt. CT Head ordered. Cardiology in to talk issa Oliveira, pt's daughter.
[2023-12-01 07:08] LABS: Glucose - Point of Care 101 mg/dl (70-99)
[2023-12-01 07:11] LABS: B.E. -3.4 mmol/L; HCO3 20.9 mmol/L (21-28); Ionized Calcium 1.23 mMOL/L (1.15-1.33); O2 Saturation % 99.8 % (94-98); PCO2 33 mmHg (32-35); PO2 137 mmHg (83-108); Potassium 4.6 mMOL/L (3.5-5.1); Sodium 128 mMOL/L (136-145); pH 7.41 (7.35-7.45)
[2023-12-01 07:14] LABS: Mixed Venous O2 Saturation 58.9 %
[2023-12-01 07:22] LABS: Ammonia < 9 umol/L (9-30)
[2023-12-01 07:23] LABS: Lactic Acid 0.9 mmol/L (0.7-2.0)
--- NOTE | 2023-12-01 07:31 | PN.DE.MGMTRT ---
Insulin Management
- -
12/01/2023 Diabetes Management Consult Follow up
Patient admitted 11/19 with weakness, found to have elevated cr and troponin. [facility] recent hospitalization @ [place] for chf pneumonia requiring intubation, severe CAD with 7 stents, CHF, HTN, diabetes. Prior to admission patient was taking
metformin 500 mg BID. A1C is 6.9, cr today 1.8, eGFR 28.66.
Patient is off the unit for pacemaker, family at bedside. Spoke with nurse regarding diabetes care.
POD 2 s/p CABG x 4. Currently on critical care glycemic protocol insulin infusion requiring .2 to 1 unit of insulin per hour. Will continue insulin infusion this AM and assess for readiness to transition tomorrow as patient is quite somnolent,
unable to take PO meds.
CR 2.2, eGFR 22.53, unable to resume oral meds when transitioned, if cr and eGFR improve will consider.
Diabetes History
- -
Type of Diabetes: 2
Pre-Admission Diabetes Regimen
11/30/23 12/01/23
16:11 02:17
Creatinine 2.1 H 2.2 H
Lab Results
Hemoglobin A1c 6.9 % (4.0-5.6) H 11/21/23 06:58
Insulin Pump Settings
IP Diabetes Regimen
11/30/23 11/30/23 11/30/23
09:15 11:00 12:44
Glucose
POC Glucose 81 102 H 102 H
11/30/23 11/30/23 11/30/23
15:12 16:11 16:58
Glucose 82
POC Glucose 102 H 82
11/30/23 11/30/23 11/30/23
19:14 21:12 23:47
Glucose
POC Glucose 97 89 106 H
12/01/23 12/01/23 12/01/23
02:17 02:28 04:39
Glucose 92
POC Glucose 105 H 86
12/01/23
06:55
Glucose
POC Glucose 101 H
Meal type: Dinner
Meal type: Breakfast
Amount consumed: 0
Amount consumed: 50%
Patient Education
[2023-12-01 07:46] LABS: ALT (SGPT) 14 U/L (0-35); AST (SGOT) 53 U/L (14-36); Albumin 3.3 g/dl (3.5-5.0); Alkaline Phosphatase 41 U/L (38-126); Direct Bilirubin 0.3 mg/dl (0.0-0.4); Total Bilirubin 0.9 mg/dl (0.2-1.3); Total Protein 5.1 g/dl (6.3-8.2)
[2023-12-01 07:53] LABS: Procalcitonin 1.27 ng/ml (0.0-0.25)
--- NOTE | 2023-12-01 07:54 | W.PN.CD ---
Today's Communication / Plan
-
- Dual chamber ICD today
Impression / Plan
-
BACKGROUND: 78F with CAD, last stent 2019, ICM EF 40%, chronic systolic HF, NIDDM, HTN, HLD, and CKD3 with recent hospitalization at [place] with HTN emergency, pulm edema, requiring intubation and diagnosis of possible Takotsubo CM presents with
weakness. She did not undergo cath. She was discharged home, and then presented to with weakness on 11/19. She was found to have an KELLIE and a mildly elevated troponin. Echo 11/20/23 showed EF 35-40%, global HK, mild/mod MR, nl RV, mild TR, PASP 35.
Then, on evening of 11/21, had episode of chest pain, which appears to be in setting of NSTEMI. She was reloaded with ASA, continued on Plavix; and started on heparin and nitro drips.
CAD/NSTEMI
-Status-post CABG x4 (HINDS to LAD, GSV to D2, GSV to OM1, GSV to RPDA) on 11/29/[address] Robins, pod #2
-Previous PCI to RCA, LAD, and Circ in past; last 2018.
-On ASA
Complete heart block status-post CABG:
-Temporary pacemaker in place.
-Continue piano builder.
-Persistent complete heart block - idioventricular rhythm noted in 50s with inotropic support with inotropes
-Temp wire in place with no sign of recovery and AV dissociation noted. Needs AV synchrony with dual chamber device. Given severe systolic dysfunction, would recommend ICD.
Altered mental status:
- Poorly responsive
- Head CT - negative for bleed
- Na was 140 but ABG showed Na of 128. Repeat.
- Worsening renal failure.
- Permanent dual chamber ICD for AV synchrony
Acute HFrEF/ICM EF (30%):
-Currently on milrinone. The dobutamine is weaned off.
-GDMT throughout hospitalization once extubated and off dobutamine.
-Continue supportive care. Follow urine output
KELLIE on CKD3b
-family reports b/l Cr of 1.4; was 3 on admit; currently 2.2 - increasing.
-Continue to monitor; Nephrology following.
HTN
-She had HTN Urgency at prior hospitalization, which was believed to prompt pulmonary edema
-meds limited by KELLIE on CKD
-Resume Coreg once extubated and off dobutamine.
Type II DM
Anemia
- Has AOCD now exacerbated by postop bleeding. s/p PRBC. Hb 7.7 (was8.4 yesterday)
Still critical - prognosis guarded but clear improvement in hemodynamics.
discussed with CTS team and updated dtr
CCT 55min
Physical Exam
Vital Signs/Labs
Vital Signs
Temp Pulse Resp BP Pulse Ox
99.6 F 53 18 101/51 99
12/01/23 06:32 12/01/23 07:00 12/01/23 07:00 12/01/23 00:59 12/01/23 07:00
12/01/23 02:17
12/01/23 02:17
PT 18.7 Sec (11.4-14.6) H 11/29/23 14:56
INR 1.55 11/29/23 14:56
APTT 34.9 Sec (23.4-35.0) 11/29/23 14:56
Magnesium 2.5 mg/dl (1.6-2.3) H 12/01/23 02:17
Triglycerides 113 mg/dl (10-149) 11/24/23 04:50
LDL Cholesterol, Calc 63 mg/dl 11/24/23 04:50
VLDL Cholesterol, Calc 22 mg/dl (0-30) 11/24/23 04:50
HDL Cholesterol 44 mg/dl 11/24/23 04:50
11/20/23 11/22/23 11/24/23
07:36 20:15 04:50
Lyf-I-Gejuzdpkkar Pept 1140 1950 [id number]
Physical Exam
Constitutional: No acute distress and Other (poorly responsive)
EENT: Anicteric and Moist mucous membranes
Cardiovascular: Rhythm & rate is regular, Pedal edema present, JVD present and Systolic murmur present
Respiratory: Respiratory effort normal and Lungs clear to auscul.
GI: Soft, Non tender and Normal bowel sounds
Neuro/Psych: Alert, Oriented and AO x 3
Other: Other (swan in place; arterial line in place. )
Data Reviewed
-
Date of Service: December 01, 2023
Medical Decision Making: Reviewed Test Results, Independent Historian Assessment, Test Interpretation and Review of Case with other Provider
EKG: Tracing Personally Visualized and interpreted
Echo: Report Reviewed by me
Labs: Labs Reviewed by me
Old Records: Reviewed
Critical Care Time (in minutes): 55
--- NOTE | 2023-12-01 08:10 | W.PN.NEPH.PH ---
Today's Communication / Plan
-
Follow BMP
Maintain Pfeiffer cath
Assessment/Plan
-
Assessment:
NSTEMI-MVD- s/p CABG x4 11/29/23
KELLIE on ?CKD
HyperK
Constipation
Weakness
C/f PNA
Plan:
s/p CABG today, SUPRIYA EF 35-40%
cr post op at 2.2
on milrinone for cardiac output support
monitor UOP with pfeiffer ~500cc
Chest x-ray personally reviewed presence of chest tube noted no overt congestive heart failure by my review
follow labs
Discussed volume status with primary team I am not convinced patient is volume overloaded at this time
Patient's for blood product transfusion this morning in setting of worsening anemia should assist with effective circulating volume
If creatinine continues to rise we need to cut back Lasix administration
Patient remains critically ill on inotropic support in setting of worsening renal failure and in need of pacemaker placement for heart block
d/w nursing
Total Time Spent with Patient (in minutes): 32 minutes critical care time spent on patient
-
-
Date of Service: December 01, 2023
CC / HPI / ROS
-
Chief Complaint:
KELLIE
History of Present Illness:
Cr 2.2 post op, CABG x4 11/28
BP low side on on milrinone, CI is low
hb at 7.7 s/p 3 units pRBC, 1 unit plt
Review of Systems:
Extubated
Chest tube
Pfeiffer cath
Lethargic
No fever
Labs
-
Labs:
WBC 12.5 10^3/uL (4.8-10.8) H 12/01/23 02:17
RBC 2.48 10^6/uL (4.20-5.40) L 12/01/23 02:17
Hgb 7.7 g/dL (12.0-16.0) L 12/01/23 02:17
Hct 21.0 % (37.0-47.0) L 12/01/23 02:17
Plt Count 116 10^3/uL (130-400) L D 12/01/23 02:17
Sodium 140 mmol/L (135-145) 12/01/23 02:17
Potassium 4.3 mmol/L (3.5-5.1) 12/01/23 02:17
Chloride 109 mmol/L (98-107) H 12/01/23 02:17
Carbon Dioxide 20 mmol/L (22-30) L 12/01/23 02:17
BUN 53 mg/dl (7-17) H 12/01/23 02:17
Creatinine 2.2 mg/dL (0.6-1.0) H 12/01/23 02:17
eGFR 22.53 12/01/23 02:17
Glucose 92 mg/dl (70-99) 12/01/23 02:17
Calcium 9.2 mg/dl (8.4-10.2) 12/01/23 02:17
Waw-D-Xrqcsbyxbnn Pept 77500 pg/ml 11/24/23 04:50
Albumin 3.3 g/dl (3.5-5.0) L 12/01/23 06:47
Physical Exam
-
Vital Signs:
Vital Signs
Temp Pulse Resp BP Pulse Ox
99.6 F 53 18 101/51 99
12/01/23 06:32 12/01/23 07:00 12/01/23 07:00 12/01/23 00:59 12/01/23 07:00
Cardiovascular:: Regular rate and rhythm
Respiratory:: Bilateral: CTA
Lung Excursion:: Normal
Abdomen:: Nontender and Soft
Bowel Sounds:: Normal
Extremity Edema:: None: Bilateral:
Pfeiffer Catheter: Yes
[2023-12-01] MEDS: PRIMACOR 20 MG 100 IV ×2 (08:59→23:05)
[2023-12-01] MEDS: LASIX 40 MG IV ×2 (09:00→16:13)
--- NOTE | 2023-12-01 09:00 | PTCARENOTE ---
Addendum entered by Matt Zaragoza RN 12/01/23 14:41:
CT surgery PA's/NEWSPAPER ILLUSTRATOR aware of same: ok to hold po meds pending PPM and give ASA 300mg supp.
Original Note:
Lethargic: unable to follow directions at this time
[2023-12-01] MEDS: LOW STRENGTH ASPIRIN PO ×2 (09:01→10:59)
[2023-12-01] MEDS: LIDOCAINE 4% PATCH TOPICAL (09:01)
[2023-12-01] MEDS: PROTONIX PO ×2 (09:01→10:57)
[2023-12-01] MEDS: PLAVIX PO ×2 (09:01→11:02)
[2023-12-01] MEDS: CRESTOR PO ×2 (09:01→10:58)
[2023-12-01] MEDS: SENOKOT-S PO ×3 (09:01→20:41)
[2023-12-01] MEDS: VITAMIN C PO ×2 (09:01→10:58)
[2023-12-01] MEDS: BACTROBAN 2% OINTMENT 1 APPLIC NASAL ×2 (09:02→21:07)
[2023-12-01 09:28] LABS: Glucose - Point of Care 102 mg/dl (70-99)
[2023-12-01] MEDS: ASPIRIN 300 MG RECTAL (09:32)
--- NOTE | 2023-12-01 10:58 | W.ICD.CONTRA ---
Post ICD/COMMERCIAL COUNSEL-D
-
History of TX?: Yes
LV Function
Left ventricular function study result?: Ejection Fraction </= 35%
ACEI/ARB/ARNI
Patient already on ACEI/ARB/ARNI: No
ACEI/ARB/ARNI Contraindication: Acute Renal Failure and Worsening Renal Function
Beta-Heath
Patient already on Beta Heath: No
Beta Heath Contraindication: 2nd-3rd AV Block, No Pacer
[2023-12-01 11:15] LABS: Blood Urea Nitrogen 53 mg/dl (7-17); Calcium 9.2 mg/dl (8.4-10.2); Carbon Dioxide 22 mmol/L (22-30); Chloride 109 mmol/L (98-107); Estimated Creatinine Clearance 15 ml/min; Glucose 107 mg/dl (70-99); Potassium 4.1 mmol/L (3.5-5.1); Sodium 141 mmol/L (135-145); eGFR 20.29
[2023-12-01 11:19] LABS: Glucose - Point of Care 121 mg/dl (70-99)
--- NOTE | 2023-12-01 11:31 | W.PN.INTV ---
Today's Communication / Plan
Recommendations
Continue milrinone infusion and trend SvO2
Maintain MAP >65
Limit narcotic use given she continues to be very lethargic currently
Can monitor pCO2 with end-tidal CO2, otherwise obtain serial blood gas
Goal SpO2 >90-94%
Once mental status improves, allow patient to get up out of bed, and encourage incentive spirometer use
Kettle Coordinator/pulmonary service will continue to follow along given patient remains on milrinone and is CVICU status
Assessment
-
78-year-old AAF with a PMHx of hypertension, hyperlipidemia, HFrEF, DM type II, CKD and CAD s/p coronary stents who presented with family due to increased sugar and fatigue. Apparently blood glucose was in the 4�500 range at home. She was recently
hospitalized at [facility] due to fluid around her heart, and she also was apparently intubated during that hospitalization for several days. In the ER she was afebrile to 98.3 �F, pulse rate 69, breathing at 16 breaths/min, blood pressure
136/73 and saturating 97% on room air. Initial labs showed Hb 9.5, creatinine 2.9, BUN 75, potassium 5.2, troponin 0.087, proBNP 1140, urinalysis negative for UTI, beta-hydroxybutyrate 0.19. Initial CXR showed RLL airspace/interstitial opacities
suspicious for pneumonia versus asymmetric pulmonary edema. She was started on antibiotics with cefepime, IV vancomycin and was admitted to telemetry under the hospitalist. Cardiology and nephrology were consulted. Rapid response called on 11/21
due to chest pain and shortness of breath. Nitro given without relief and Lasix 20 mg IV push given as well. Patient transferred to the ICU for further care with heparin drip started given concern for ACS versus PE. Echo showed reduced LVEF at
30% and more pronounced lateral/inferolateral hypokinesis. Troponin considerably increased and peaked at 7.36 on 11/23/2023. Of note, VQ scan obtained on 11/22 showed low risk study for PE. Patient underwent left heart catheterization on 11/23
showing severe multisegment triple-vessel CAD. CT chest on 11/23 also showed progressive small bilateral pleural effusions with lung nodules including a subpleural 7.1 mm GGO in the right upper lobe. Cardiothoracic surgery was consulted, and on
11/29/2023 she underwent CABG x 4 with no complications, and transferred to the CVICU on dobutamine, insulin, and 4 chest tubes (bilateral pleural, inferior mediastinal + superior mediastinal). Critical care services now consulted for additional
management/recommendations.
Impression:
Multivessel CAD s/p multiple coronary stents s/p CABG x 4 (POD#2)
CHB with HFrEF s/p dual-chamber ICD (implanted 12/01/2023)
Acute coronary syndrome with NSTEMI
Acute on chronic HFrEF/ICM
Hypertensive urgency at prior hospitalization prompted pulmonary edema
Pneumonia-right lower lobe
Hypoxemic and hypercapnic respiratory insufficiency
KELLIE on top of chronic kidney disease
Multiple pulmonary nodules including 7.1 mm subpleural GGO in the right upper lobe
Anemia
QT prolongation (QTc: 515ms from today's EKG)
Hyperglycemia
Left foot pain
Fecal impaction
Transaminitis
Umbilical hernia
DJD
Conditions present prior to admission:
Hypertension.
Hyperlipidemia.
CHF reduced EF-EF 40%
Chronic systolic heart failure
CAD-last stent 2018
Chronic renal failure.
Diabetes. 2 cm left renal simple cyst
Cholecystectomy
Plan:
Patient continues to breathe comfortably on 3 L per nasal cannula with SpO2 96-98%
O2 flow rate will be titrated to keep goal SpO2 >90-94%
prn nebulized bronchodilators
Considering her mental status still remains poor, keep head of bed elevated greater than 30-45�
CT head this morning shows no acute intracranial abnormalities with old 1.5 cm lacunar infarct (on the left)
Pulmonary artery catheter parameters will be followed
Pressors/antihypertensive/inotropes/diuretics will be provided as needed
Continue with milrinone and titrate based on CO/CI
She underwent dual-chamber ICD placement today (12/01/2023) due to history of complete heart block with chronic systolic heart failure
Monitor chest tube output
Monitor hemoglobin
Monitor platelet count and coags
Transfuse blood product if needed to keep Hb >8g/dL, plt>50k (given post-operative status)
-Last transfusion was overnight 11/28 - 11/29 with 1 unit PRBC, with Hb rising from 7.[address] surgery managing chest tubes x 4 (mediastinal x 2, left + right pleural chest tubes)
Given concern for RLL pneumonia, she is already s/p course of antibiotics with Doxy + Zosyn x 2 days s/p IV vanco x 2 doses, cefepime x1 dose in ER, and rocephin x 2 doses
Ranolazine was previously being held given QT prolongation
Bowel regimen
Monitor blood sugar with goal BG 140-180mg/dL
Insulin drip per protocol
Given patient has multiple pulmonary nodules seen on CT chest from 11/24/2023, would repeat CT chest imaging without contrast in about 4-6 weeks to assess for resolution versus persistence of these nodules
Aspiration precautions
VAP prevention protocol
DVT prophylaxis
Early nutrition
Early mobilization
Considering patient remains CVICU status on milrinone, Kettle Coordinator/Pulmonary service will continue to follow along. Once she is downgraded then we will sign off at that time.
Critical care statement: A total of 39 minutes of critical care time was provided for this patient today. This includes management of ventilator, spontaneous breathing trial, arterial blood gases, pressors, of unstable vital signs, evaluation of the
patient at bedside, reviewing the patient's pertinent medical records including radiographs, microbiology, laboratory evaluations, and discussion with primary team and critical care nursing.
Diagnostic data:
Chest x-ray 11/20/2023-right lower lobe asymmetrical pulm edema versus developing pneumonia, heart enlarged
Chest x-ray 11/22/2023-progressive right lower lobe pneumonia mild degree of pulmonary vascular congestion
Chest x-ray 11/29/2023- New postoperative changes; no pneumothorax; minimal left pleural effusion
Chest x-ray 12/01/2023- Stable postoperative changes with interval removal of endotracheal tube; no pneumothorax
Renal ultrasound 11/20/2023-simple upper pole right renal cyst measuring 3.9 cm, unremarkable otherwise
CT head 11/21/2023-no acute intracranial abnormalities, diffuse cortical atrophy
CT head 12/01/2023- There are no acute intracranial abnormalities; Old 1.5 cm lacunar infarct involving the head of the caudate and anterior limb of the internal capsule on the left; There is mild diffuse cortical atrophy with mild nonspecific white
matter changes
CT Chest 11/24/2023:
Progressive small bilateral pleural effusions and adjacent compressive atelectasis.
Pulmonary nodules, as described, with groundglass nodule measuring up to 7.1 mm. Recommend follow-up in 6-12 months.
1.4 cm left thyroid low-attenuation nodule. Consider nonemergent follow-up ultrasound assessment.
CT abdomen and pelvis 11/21/2023-moderate volume widespread colonic stool, 4 cm simple right renal cyst, prior cholecystectomy, small fat-containing umbilical hernia
Echocardiogram 11/20/2023-EF 35-40%, global hypokinesis, moderate mitral regurgitation, PA systolic 35
Subjective Dataa
Subjective Data
Date of Service:
Date of Service: December 01, 2023
Chief Complaint: Kettle Coordinator Follow Up
Subjective:
Patient seen today after ICD placement. She still remains minimally responsive, groaning and moving extremities to tactile stimuli but not following any commands. She is on milrinone at 0.375mcg/kg/min. BP 165/70, heart rate 65, and saturating
98% on 3 L/min nasal cannula.
Review of Systems
General: Unobtainable - Pat Unresp
Objective Data
Data Reviewed
Vital Signs / I&O / Oxygen:
Vital Signs
Temp Pulse Resp BP Pulse Ox
99.5 F 51 16 101/51 100
12/01/23 09:25 12/01/23 11:00 12/01/23 11:00 12/01/23 00:59 12/01/23 11:00
Intake and Output
11/30/23 12/01/23 12/02/23
06:59 06:59 06:59
Intake Total 2011.4 / 2010.4 1245.8 / 1245.8 182.8 / 182.8
Output Total 1200 / 1200 1010 / 1010 305 / 305
Balance 811.4 / 811.4 235.8 / 235.8 -122.2 / -122.2
SaO2 [CPAP/PSV] 100
SaO2 [SIMV] 100
SaO2 100
Nasal Cannula flow liters per 2
minute
Physical Exam
General: Respiratory Distress (Negative) and Chills (Negative)
HEENT: Normocephalic and Anicteric
Cardiovascular: S1-S2 and Peripheral Edema (Negative)
Respiratory: Wheeze (Negative), Crackles (Hart upon inspiration on the anterior lung lincoln bilaterally), Rhonchi (Negative), Non-Labored Respirations and Chest Tube (X 4 (mediastinal x 2+ left/right pleural chest tubes))
GI: Soft, Non Distended, Non Tender and Normal Bowel Sounds
Neurology: Unresponsive (Moves all 4 extremities spontaneously to tactile stimulation but not opening eyes or following commands)
Skin: Warm, Dry and Jaundice (Negative)
Labs/Micro/Reports
Lab Data
12/01/23 02:17
12/01/23 10:11
Laboratory Results
11/30/23 11/30/23 11/30/23
15:27 18:14 22:21
pH 7.38 7.39 7.41
pCO2 38 H 37 H 35
pO2 121 H 139 H 88
HCO3 22.5 22.4 22.2
O2 Delivery Level
12/01/23 12/01/23
02:17 06:42
pH 7.42 7.41
pCO2 34 33
pO2 82 L 137 H
HCO3 22.1 20.9 L
O2 Delivery Level Not Reportable
--- NOTE | 2023-12-01 12:30 | PTCARENOTE ---
Call from crime lab analyst: report given to EP lab technical staff assistant. Patient to crime lab analyst for PPM/AICD placement.
--- NOTE | 2023-12-01 13:31 | CM ---
Reviewed chart. Met with daughter and brother regarding discharge plans. 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 We reviewed some level of rehab when medically stable for discharge. Daughter states her other daughter has POA. We
reviewed acute rehab at [facility] at [facility] and SNF/Rehab. Will need to see her current functional level to see if she will have any skilled care needs. Will need physical and occupational therapy evaluations when medically ready. Will also
need a PM&R evaluation for [facility] at [place]. Referrals also made to [facility], [facility] and [facility]. Will need to seed updated clinical to above SNF's once therapy starts. Telephone call to
[facility] Liaison to make referrral. Will send referral after therapy evaluations. Gave daughter Case management contact information. Medical work-up in progress. The discharge plan is some level of inpatient rehab. Acute versus SNF/ Rehab.
when medically stable.
--- NOTE | 2023-12-01 14:55 | ITS.CL.ICD ---
[facility] - ICD
Implantable Cardioverter Defibrillator
Procedure Report:
Dual Chamber Implantable Cardioverter Defibrillator Placement:
Ms. Baxter is a 78 years old woman with CAD, s/p PCI to RCA, LAD and LCx - last stent 2018, s/p CABG X4 11/29/23 with complete heart block and chronic systolic HF with LVEF of 30% has idioventricular escape rhythm is in need for a permanent pacemaker
for AV synchrony with ICD for primary prevention of her sudden cardiac due to chronic systolic heart failure.
Indications: Complete heart block with chronic systolic heart failure.
Date of the Procedure: 12/01/2023
Pre-Operative Diagnosis: Complete heart block with chronic systolic heart failure
Post-Operative Diagnosis: Complete heart block with chronic systolic heart failure
Procedure Performed: DUAL CHAMBER IMPLANTABLE CARDIOVERTER DEFIBRILLATOR IMPLANTATION
Performing Physician:
Lupe Leslie MD
Assistants:
EP staff
Anesthesia:
See anesthesia records
Detailed Description of the Procedure:
The patient was identified using hospital identification and informed consent obtained for the procedure. The risks were explained including, but not limited to: Bleeding, infection, arrhythmia, stroke, vascular/cardiac/lung puncture, surgery,
pacemaker dependency/device malfunction. All questions were answered.
The patient was brought to the electrophysiology laboratory in stable condition in fasting state. Continuous electrocardiographic and hemodynamic monitoring was initiated. The initial rhythm was idioventricular escape rhythm with demand paced rhythm.
The procedure site was meticulously prepared with surgical scrub and allowed to dry with no pooling. Sterile draping was applied to cover the procedure site. The image intensifier was draped with sterile bag and positioned over the patient.
The left infraclavicular region was prepped and draped in the usual sterile fashion. Local anesthesia was administered subcutaneously using 1% lidocaine / epinephrine. The left cephalic vein was searched but no vein was identified.
The axillary vein was accessed using the fluoroscopic guidance using the micro-puncture apparatus and vascular sheath was introduced over the guidewire for lead access. The guide wire was advanced into the inferior vena cava. The wire was retained
and two guide wires were placed.
Of note, there was a stenotic area in the innominate vein and the vein was dilated from 7 Fr to 9 Fr lead and sheaths.
Using the sheaths, atrial and ventricular leads were placed. These were advanced into the right ventricle and the right atrium.
The right ventricular lead was secured in position with an active fixation technique at the apical location. The RA lead was attached in the right atrial appendage with active fixation.
There was excellent sensing, pacing, and impedance from the leads, with no diaphragmatic stimulation at 10 V output.�Bovie cautery, antibiotics, and fluoroscopy were used.
The sheath was withdrawn, and the thresholds remained acceptable. A pursestring suture was placed at the entry point of the leads using 2-0 Ethibond sutures. The leads were secured in position at the venous entry site with 0-silk. A pocket was
fashioned contiguous to the incision. The electrode terminals were connected to the pulse generator, which was placed into the pocket. The generator was secured to the underlying fascia using 2-0 Ethibond suture.
The wound was irrigated thoroughly with antibiotic solution. A Tyrx pouch was placed around the generator and the wires in the pocket.
All the bleeders were identified and cauterized. Thrombus was injected inside the pocket. The wound was closed using 2-0 V-Loc sutures and followed by 2 layers of 4-0 V-loc sutures. Steri-Strips and a bandage were applied externally.�
Procedure End:
The procedure was tolerated well. A bandage was applied to the incision area.
�
This [place]-June catheter was removed under fluoroscopy without significant removing the atrial ventricular leads. The device was tested again after catheter removal and no change in the thresholds and impedances noted.
Estimated Blood loss:
15 cc
Fluoro time:
10.6min / 13.7mGy
Specimens Removed:
No cultures and no specimens were obtained. No intraoperative pathology was identified.
Urine output:
None
Packs / Drains/ Tubes:
None
Instrument / Sponge Count Correct:
Yes
Complications of the Procedure:
None
Condition of Patient at Time of Transfer:
Hemodynamically stable with no neurological or vascular compromise.
Device information:�
Generator: sciencebite; Model: [id number]; Serial # [id number]
Atrial Lead: Medtronic; Model: 5076-52; Serial # [id number]
Measured data in the right atrium was sensing of 1.2 mV, impedance of 450 ohms and threshold of 0.75 V at 0.4ms�
RV Lead: Medtronic; Model: [id number]-[id number]; Serial # [id number]
Measured data in the RV lead was sensing of 7 mV, impedance of 470 ohms and threshold of 0.5 V at 0.4ms�
PROGRAMMING PARAMETERS:�
Edward parameter settings were AAIR <=>DDDR 50-130 bpm. �
����������� Mode switch: On
����������� Paced AV delay: 150 ms
����������� Sensed AV delay: 140 ms
����������� Rate Adaptive A-V Interval: ON
Output parameters:
����������������������� Amplitude (V)������������� Pulse Width (ms)������� Sensitivity (mV)
����������� RA: ����� 3.5 ����������������� 0.4������������������ 0.3
����������� RV:������ 3.5������������������ 0.4������������������ 0.3
Tachy parameter settings:
����������� SVT discrimination: On
����������� AF/AFl: OFF
����������� SVT limit: 260 msec
����������� VT zone:
����������������������� Slow VT: 150-188 bpm --> Monitor
����������������������� Fast VT/VF: > 188 bpm --> Shock x6 (ATP before and during)
�����������
Summary:
Successful implantation of MRI compatible dual chamber Medtronic implantable Cardioverter Defibrillator.�
Results/Recommendations:
-Please follow up CXR�
1. Please provide patient with adequate pain control�
Instructions to be given to patient:�
- Please follow up with [facility] at [address] [place] [address] ([phone]) to get your wound checked within 14 days of your discharge.
- Do not soak incision site until after it is evaluated at cardiology clinic. OK to showers followed by dab dry the area. No baths or swimming until then. Sponge baths are OK.�
- Allow 'steri strips' to fall off on their own�
- Do not lift left elbow above shoulder, particularly with sudden jerking movements, for 1 month�
- Do not lift anything weighing more than 5 pounds with the left arm for 1 month�
- If you notice any fevers, shortness of breath, lightheadedness, chest pain, or worsening swelling in the wound site, please contact the arrhythmia clinic, contact your clinical lab scientist, or present to the hospital for evaluation.�
Lupe Leslie MD
Electrophysiology
--- NOTE | 2023-12-01 15:10 | PTCARENOTE ---
Call from manager lab EP lab staff mine warfare officer: report received: patient will be status post AICD/PPM left upper chest placement: DDDR 50 to 130bpm/VF rate at 188. [place] chayito catheter dc by manager lab with Dr. Robins approval ct surgery.
[2023-12-01 15:31] LABS: Glucose - Point of Care 125 mg/dl (70-99)
--- NOTE | 2023-12-01 16:00 | PTCARENOTE ---
No acute changes. Vitals stable. Urine output improving. MVO2 via right IJ cordis was 67. PPM/AICD has occ inappropriate pacing spike on t wave v artifact? CT surgery aware Corin CHEEMA and ct surgery Dr. Robins aware. Temp epicardial v wire insulated.
Medtronic pacer rep contacted: pacer interrogated: confirmed R on T was artifact and PPM/AICD is functioning appropriately. Cardene gtt initiated to maintain systolic BP's 120 to 140mmHg.
[2023-12-01] MEDS: FERRLECIT 110 MG IV (16:14)
[2023-12-01] MEDS: NSS 500 IV (16:14)
--- NOTE | 2023-12-01 16:30 | PTCARENOTE ---
Patient is still lethargic. Aroused to name and did follow simple commands and move all extremities: very weak.
--- NOTE | 2023-12-01 17:00 | PTCARENOTE ---
Per Dr. Robins, will hold off on dc'ing mediastinal chest tubes today and will dc them in am on Monday.
[2023-12-01 18:16] LABS: Glucose - Point of Care 119 mg/dl (70-99)
[2023-12-01 18:20] LABS: Glucose - Point of Care 110 mg/dl (70-99)
[2023-12-01 19:30] LABS: Glucose - Point of Care 87 mg/dl (70-99)
--- NOTE | 2023-12-01 20:15 | PTCARENOTE ---
Report received from ROBERT Harper. Walking rounds done. Pt lethargic, drowsy. Seemed to attempt eye opening weakly to name. Moved feet when asked to wiggle toes. Did not swing grinder to command. Grimaces symmetrically when trying to perform mouth care. Will
yawn and moan at times.
Pt on 2L/NC. Sats 99-100%. BBS present. Decreased throughout.
Pt V paced with occasional monomorphic PVC, then AV pacing at times. Milrinone gtt at 0.375 mcg/kg/min. Titrating Cardene gtt to keep SBP 120-140 mmHG.
Palpable radial pulses. DP and PT pulses found via doppler. L radial A line with pulsatile waveform.
L sided anterior chest Aquacel dressing dry and intact from AICD/PPM today. Left arm in sling. Sternal aquacel dry and intact.
Temp V wire insulated. Dressings to CTs x 4 intact. CTs x 4 all to -20 cm suction. See flowsheet.
R groin dressing intact. R knee and lower leg dressing intact. See flowsheets.
Belly soft. Hypoactive BS x 4. Pt with decreased LOC and not eating.
Glycemic protocol followed.
Daughters at bedside and updated on pt status.
[2023-12-01 20:47] LABS: Glucose - Point of Care 96 mg/dl (70-99)
[2023-12-01] MEDS: HEPARIN 5000 UNITS SC (21:05)
[2023-12-01] MEDS: ANCEF 5 IV (21:06)
[2023-12-01 22:59] LABS: Glucose - Point of Care 99 mg/dl (70-99)
[2023-12-02] VITALS (57 sets, daily range): BP systolic 87–139; BP diastolic 49–74; BMI 28.2
--- NOTE | 2023-12-02 00:15 | PTCARENOTE ---
Pt given CHG bath. Dressing changes done to CT sites and V wire site. V wires remain insulated. Pt turned, linens changed, positioned onto right side (on pillow). Pt weighed in bed. Milrinone gtt remains at 0.375 mcg/kg/min. Cardene gtt titrated to
keep BP 120-140 mm HG. Pt briefly more awake with bath. Moaning with occasional eye opening to voice. She does not follow commands. Will occasionally spontaneously move BLE. Mouth care done. Grimaces with mouth care. O2 remains at 2L/NC.
Daughter remains at bedside, sleeping in recliner chair overnight.
[2023-12-02] MEDS: CARDENE 200 IV (00:25)
[2023-12-02 00:34] LABS: Glucose - Point of Care 100 mg/dl (70-99)
[2023-12-02] MEDS: NOVOLIN R INSULIN INFUSION 100 IV (00:44)
[2023-12-02 03:11] LABS: Glucose - Point of Care 84 mg/dl (70-99)
--- NOTE | 2023-12-02 04:15 | PTCARENOTE ---
Pt remains on Milrinone gtt at 0.375 mcg/kg/min. Cardene gtt titrated per BP control (120-140 mm HG systolic). V paced, AV paced at times. Glycemic protocol maintained. Hourly CT and Urine outputs recorded. O2 at 2L/NC. Sats 99-100%. Remains
lethargic, drowsy. Moans at times. No eye opening or commands followed at present time.
[2023-12-02] MEDS: ANCEF 5 IV (04:45)
[2023-12-02] MEDS: TYLENOL PO ×3 (04:46→20:53)
[2023-12-02 05:12] LABS: Glucose - Point of Care 90 mg/dl (70-99)
[2023-12-02 06:06] LABS: Hematocrit 21.1 % (37.0-47.0); Hemoglobin 7.4 g/dL (12.0-16.0); Mean Corp Hgb Conc. 35.1 g/dL (33.0-37.0); Mean Corpuscular Hgb 31.4 pg (27.0-31.0); Mean Corpuscular Volume 89.4 fL (81.0-99.0); Mean Platelet Volume 10.1 fL (7.4-10.4); Platelet Count 110 10^3/uL (130-400); Red Blood Cell Count 2.36 10^6/uL (4.20-5.40); Red Cell Dist. Width 15.4 % (11.5-14.5); White Blood Cell Count 13.6 10^3/uL (4.8-10.8)
--- NOTE | 2023-12-02 06:15 | W.PN.CT ---
Today's Communication / Plan
-
Hemodynamically stable on milrinone and Cardene. Can begin weaning milrinone off today slowly.
Status post dual-chamber pacemaker placement. Appears to be functioning normally. Per cardiology.
Plan to remove temporary pacing wires today as well as mediastinal chest tubes. Will discuss pleural chest tubes given output.
Wean nasal cannula oxygen as tolerated from goal saturations 90%.
Need to mobilize more. Possible chair position?
Jones catheter in place due to neurostatus.
Will need swallow evaluation. She has not been getting nutrition or pills. May need dobhoff. Will discuss.
Neurostatus continues to slowly improve. CT of the head was negative.
Given her immobility will need subcutaneous heparin for DVT prophylaxis.
Will need PT and OT when able to participate. Will almost certainly need rehab.
Assessment / Plan
-
Assessment:
-Severe 3v CAD- s/p CABG x 4 (HINDS to LAD, GSV to D2, GSV to OM1, GSV to RPDA) on 11/29/[address] Robins, pod #2
-Intraop SUPRIYA: LVEF 30-35%, global hypokinesis w/ minor improvement in lateral wall, mild MR, mild TR, no AI/, RV OK
-[place]
-NSTEMI (peak trop 7.36)
-Hx of CAD S/P PCI with prior 7 stents, most recent stent in 2018
-Plavix washout, last dose on 11/23 @ 0832
-Acute on chronic ICM (LVEF 30% per TTE on 11/22)
-Systolic CHF with recent hospitalization at [facility] ([place]) w/ HTN emergency, pulmonary edema requiring intubation - ? Takotsubo CM
-Mild-moderate MR
-Mildly dilated left atrium
-LBBB preop
-Tachycardia
-Hx of Takotsubo syndrome
-KELLIE on chronic CKD3b (cr 3.0 on 11/20, now 1.8, per family baseline Cr is 1.4)
-Chronic Anemia
-HTN
-HLD
-T2DM (A1C 6.9)
-LETTY lung nodules (7.1 mm, incidental findings from chest CT 11/23)
-Thyroid nodule (1.4 cm, incidental findings from chest CT 11/23)
-Mild right scoliosis
-Acute postop nsr with complete heart block with Junctional escape with RBBB ( had LBBB preop)- maintain epicardial pw, may need pacer postop
-Acute postop blood loss anemia on chronic anemia - s/p 1 pRBC preop 11/27, 3 pRBCs and 1 unit platelet intraop, 1pRBC and 2 FFPs postop 11/28+ 1pRBC on 11/29
-Acute postop coagulopathy
-Cardiogenic shock (postop CO/CI: 1.5/0.95; Preop starting CI 1.4)- requiring inotrops
-Acute postop hypovolemia with subsequent hypervolemia
-Acute postop atelectasis
-Acute postop long Qt
-KELLIE on CKD
-Acute postop lethargy- responds to voice, holding narcotics
Subjective
Procedure
- s/p CABG x 4 (HINDS to LAD, GSV to D2, GSV to OM1, GSV to RPDA) on 11/29/[address] Robins
Oriented to person and place. Unable to tell me why she is here. She appears more awake this morning per her daughter and nursing.
-
Date of Service: December 02, 2023
Objective Data
-
Lab Results
12/02/23 05:31
PT 18.7 Sec (11.4-14.6) H 11/29/23 14:56
INR 1.55 11/29/23 14:56
APTT 34.9 Sec (23.4-35.0) 11/29/23 14:56
Vital Signs
Vital Signs
Temp Pulse Resp BP Pulse Ox
99.7 F 70 16 118/63 99
12/02/23 05:00 12/02/23 06:00 12/02/23 06:00 12/02/23 06:00 12/02/23 06:00
CT Intake/Output/Weight
12/01/23 12/01/23 12/02/23
06:59 18:59 06:59
Intake Total 800.0 / 1245.8 387.1 / 720.1 333.0 / 720.1
Output Total 505 / 1010 715 / 1620 905 / 1620
Balance 295.0 / 235.8 -327.9 / -899.9 -572.0 / -899.9
SaO2: 99
Physical Exam
-
General: Other (Somnolent, oriented to person and place. Moves all extremities)
Cardiovascular: Regular rate & rhythm
Respiratory: Clear and Equal
Sternum: Stable
Incision: Clean, Dry and Intact
Extremities: Edema +1
Data Reviewed
-
Lab Results: Results Reviewed
Medications: Active Meds Reviewed
Chest X-Ray: Image Reviewed
[2023-12-02 06:19] LABS: ALT (SGPT) 12 U/L (0-35); AST (SGOT) 66 U/L (14-36); Albumin 3.3 g/dl (3.5-5.0); Alkaline Phosphatase 45 U/L (38-126); Blood Urea Nitrogen 61 mg/dl (7-17); Calcium 9.4 mg/dl (8.4-10.2); Carbon Dioxide 23 mmol/L (22-30); Chloride 110 mmol/L (98-107); Estimated Creatinine Clearance 17 ml/min; Glucose 84 mg/dl (70-99); Magnesium 2.4 mg/dl (1.6-2.3); Potassium 3.6 mmol/L (3.5-5.1); Sodium 143 mmol/L (135-145); Total Bilirubin 0.7 mg/dl (0.2-1.3); Total Protein 5.3 g/dl (6.3-8.2); eGFR 20.29
--- NOTE | 2023-12-02 06:30 | PTCARENOTE ---
CXR, lab work, and EKG done. Pt more awake. Opened eyes to voice. Held up B thumbs to command. Moved feet when asked to wiggle toes. Pt stated name and place ([facility]). She remains drowsy and falls back to sleep. Pt repositioned in bed
and turned onto R side. Daughter at bedside. BLANCA Cobos in to see pt this am.
[2023-12-02 07:29] LABS: Glucose - Point of Care 97 mg/dl (70-99)
[2023-12-02] MEDS: OFIRMEV 100 IV ×2 (08:05→21:36)
[2023-12-02] MEDS: BACTROBAN 2% OINTMENT 1 APPLIC NASAL ×2 (08:07→20:52)
[2023-12-02] MEDS: HEPARIN 5000 UNITS SC ×2 (08:07→20:52)
[2023-12-02] MEDS: LASIX 40 MG IV ×2 (08:07→16:58)
[2023-12-02] MEDS: LIDOCAINE 4% PATCH TOPICAL (08:08)
[2023-12-02] MEDS: PROTONIX PO (08:08)
[2023-12-02] MEDS: SENOKOT-S PO ×2 (08:08→20:53)
[2023-12-02] MEDS: VITAMIN C PO (08:08)
[2023-12-02] MEDS: CRESTOR PO (08:08)
--- NOTE | 2023-12-02 08:45 | PTCARENOTE ---
Assumed care of patient at 0700. Pt remains drowsy, opens eyes to voice, able to state name and . Follows commands and able to move all extremities. Pt with generalized weakness. Pt with complaints of right foot pain, repositioned, CT TELEPHONE RECORDER aware,
Ofirmev administered per order. Pt remains 100% V paced with HR 60's. BP 132/54 MAP 74. Epicardial V wire insulated. Pedal pulses present with Doppler. Pulse oximetry 100% on 2L nasal cannula. Mediastinal chest tubes x2 and left/right pleural chest
tubes in place to -20 suction, drainage serosanguineous. No sign of air leak or crepitus. Pt remains NPO, awaiting PRESS SUPERVISOR consult. Pt remains on insulin gtt per glycemic protocol. Jones catheter in place draining yellow urine. Jones care completed.
Midsternal incision Aquacel dressing CDI. Right leg incision Aquacel dressings CDI. Left chest PPM site Aquacel dressing CDI. Left arm remains in sling. Foam dressing intact on sacrum. Pt turned and repositioned. Right IJ cordis in place with KVO.
Left radial Regan intact. Pt remains on Cardene gtt at 2.5mg/hr. Milrinone gtt now changed to 0.25mcg/kg/min per order. Pt resting comfortably in bed with daughter at bedside.
[2023-12-02 09:07] LABS: Glucose - Point of Care 83 mg/dl (70-99)
--- NOTE | 2023-12-02 10:06 | W.PN.NEPH.PH ---
Today's Communication / Plan
-
Follow BMP
Maintain Jones catheter
Cardene to be discontinued due to low MAP
Milrinone being weaned
Discussed with primary team
Assessment/Plan
-
Assessment:
NSTEMI-MVD- s/p CABG x4 11/29/23
KELLIE on ?CKD
HyperK
Constipation
Weakness
C/f PNA
Plan:
s/p CABG today, SUPRIYA EF 35-40%
cr post op at 2.4, remains nonoliguric with approximately 1 L of urine, weights down
on milrinone for cardiac output support
Hemodynamically more stable today, for repeat blood product
I suspect acute kidney injury is related to prerenal stimulus from compromised effective circulating volume
Chest x-ray personally reviewed presence of chest tube noted no overt congestive heart failure by my review, left anterior chest wall pacer
follow labs
If creatinine continues to rise we need to cut back Lasix administration as I do not think the patient is volume overload
Patient remains critically ill on inotropic support in setting of worsening renal failure status post pacemaker placement for heart block
d/w nursing
Total Time Spent with Patient (in minutes): 31 minutes
-
-
Date of Service: December 02, 2023
CC / HPI / ROS
-
Chief Complaint:
KELLIE
History of Present Illness:
Cr 2.4 post op, CABG x4 11/28
BP low side on on milrinone, CI is low
hgb at 7.4 s/p 3 units pRBC, 1 unit plt
Status post pacemaker placement for heart block on 12-22
Review of Systems:
Extubated
Chest tube
Jones cath: non oliguric
Lethargic
low grade fever
Labs
-
Labs:
WBC 13.6 10^3/uL (4.8-10.8) H 12/02/23 05:31
RBC 2.36 10^6/uL (4.20-5.40) L 12/02/23 05:31
Hgb 7.4 g/dL (12.0-16.0) L 12/02/23 05:31
Hct 21.1 % (37.0-47.0) L 12/02/23 05:31
Plt Count 110 10^3/uL (130-400) L 12/02/23 05:31
Sodium 143 mmol/L (135-145) 12/02/23 05:31
Potassium 3.6 mmol/L (3.5-5.1) 12/02/23 05:31
Chloride 110 mmol/L (98-107) H 12/02/23 05:31
Carbon Dioxide 23 mmol/L (22-30) 12/02/23 05:31
BUN 61 mg/dl (7-17) H 12/02/23 05:31
Creatinine 2.4 mg/dL (0.6-1.0) H 12/02/23 05:31
eGFR 20.29 12/02/23 05:31
Glucose 84 mg/dl (70-99) 12/02/23 05:31
Calcium 9.4 mg/dl (8.4-10.2) 12/02/23 05:31
Cyt-U-Lciiyryoyzs Pept 31626 pg/ml 11/24/23 04:50
Albumin 3.3 g/dl (3.5-5.0) L 12/02/23 05:31
Physical Exam
-
Vital Signs:
Vital Signs
Temp Pulse Resp BP Pulse Ox
99.2 F 64 13 111/49 98
12/02/23 09:56 12/02/23 09:56 12/02/23 09:56 12/02/23 09:56 12/02/23 09:56
Cardiovascular:: Regular rate and rhythm
Respiratory:: Bilateral: CTA
Lung Excursion:: Normal
Abdomen:: Nontender and Soft
Bowel Sounds:: Normal
Extremity Edema:: None: Bilateral:
Jones Catheter: Yes
--- NOTE | 2023-12-02 10:35 | W.PN.INTV ---
Today's Communication / Plan
Recommendations
Continue milrinone infusion and trend SvO2
Wean off insulin gtt
Maintain MAP >65
Limit narcotic use given she continues to be very lethargic currently
Can monitor pCO2 with end-tidal CO2, otherwise obtain serial blood gas
Goal SpO2 >90-94%
Once mental status improves, allow patient to get up out of bed, and encourage incentive spirometer use
Solar Consultant/pulmonary service will continue to follow along given patient remains on milrinone and is CVICU status
Assessment
-
78-year-old AAF with a PMHx of hypertension, hyperlipidemia, HFrEF, DM type II, CKD and CAD s/p coronary stents who presented with family due to increased sugar and fatigue. Apparently blood glucose was in the 4�500 range at home. She was recently
hospitalized at [facility] due to fluid around her heart, and she also was apparently intubated during that hospitalization for several days. In the ER she was afebrile to 98.3 �F, pulse rate 69, breathing at 16 breaths/min, blood pressure
136/73 and saturating 97% on room air. Initial labs showed Hb 9.5, creatinine 2.9, BUN 75, potassium 5.2, troponin 0.087, proBNP 1140, urinalysis negative for UTI, beta-hydroxybutyrate 0.19. Initial CXR showed RLL airspace/interstitial opacities
suspicious for pneumonia versus asymmetric pulmonary edema. She was started on antibiotics with cefepime, IV vancomycin and was admitted to telemetry under the hospitalist. Cardiology and nephrology were consulted. Rapid response called on 11/21
due to chest pain and shortness of breath. Nitro given without relief and Lasix 20 mg IV push given as well. Patient transferred to the ICU for further care with heparin drip started given concern for ACS versus PE. Echo showed reduced LVEF at
30% and more pronounced lateral/inferolateral hypokinesis. Troponin considerably increased and peaked at 7.36 on 11/23/2023. Of note, VQ scan obtained on 11/22 showed low risk study for PE. Patient underwent left heart catheterization on 11/23
showing severe multisegment triple-vessel CAD. CT chest on 11/23 also showed progressive small bilateral pleural effusions with lung nodules including a subpleural 7.1 mm GGO in the right upper lobe. Cardiothoracic surgery was consulted, and on
11/29/2023 she underwent CABG x 4 with no complications, and transferred to the CVICU on dobutamine, insulin, and 4 chest tubes (bilateral pleural, inferior mediastinal + superior mediastinal). Critical care services now consulted for additional
management/recommendations.
Impression:
Multivessel CAD s/p multiple coronary stents s/p CABG x 4 (POD#3)
CHB with HFrEF s/p dual-chamber ICD (implanted 12/01/2023)
Acute coronary syndrome with NSTEMI
Acute on chronic HFrEF/ICM
Hypertensive urgency at prior hospitalization prompted pulmonary edema
Pneumonia-right lower lobe
Hypoxemic and hypercapnic respiratory insufficiency
KELLIE on top of chronic kidney disease
Multiple pulmonary nodules including 7.1 mm subpleural GGO in the right upper lobe
Anemia
QT prolongation (QTc: 515ms from today's EKG)
Hyperglycemia
Left foot pain
Fecal impaction
Transaminitis
Umbilical hernia
DJD
Conditions present prior to admission:
Hypertension.
Hyperlipidemia.
CHF reduced EF-EF 40%
Chronic systolic heart failure
CAD-last stent 2018
Chronic renal failure.
Diabetes. 2 cm left renal simple cyst
Cholecystectomy
Plan:
Patient continues to breathe comfortably now on RA with SpO2 97%
Maintain goal SpO2 >90-94%
prn nebulized bronchodilators
Considering her mental status still remains poor, keep head of bed elevated greater than 30-45�
CT head on morning of 11/30 shows no acute intracranial abnormalities with old 1.5 cm lacunar infarct (on the left)
Continue with milrinone and wean as tolerated
She underwent dual-chamber ICD placement on12/01/2023 due to history of complete heart block with chronic systolic heart failure
Monitor chest tube output
Monitor hemoglobin
Monitor platelet count and coags
Transfuse blood product if needed to keep Hb >8g/dL, plt>50k (given post-operative status)
-Last transfusion was this AM with 1 unit PRBC due to Hb of 7.4
CT surgery managing chest tubes (left + right pleural chest tubes)
Given concern for RLL pneumonia, she is already s/p course of antibiotics with Doxy + Zosyn x 2 days s/p IV vanco x 2 doses, cefepime x1 dose in ER, and rocephin x 2 doses
Ranolazine was previously being held given QT prolongation
Bowel regimen
Monitor blood sugar with goal BG 140-180mg/dL
Insulin drip per protocol
Given patient has multiple pulmonary nodules seen on CT chest from 11/24/2023, would repeat CT chest imaging without contrast in about 4-6 weeks to assess for resolution versus persistence of these nodules
Aspiration precautions
DVT prophylaxis
Early nutrition
Early mobilization
Considering patient remains CVICU status on milrinone + insulin gtt, Solar Consultant/Pulmonary service will continue to follow along. Once she is downgraded then we will sign off at that time.
Critical care statement: A total of 42 minutes of critical care time was provided for this patient today. This includes management of ventilator, spontaneous breathing trial, arterial blood gases, pressors, of unstable vital signs, evaluation of the
patient at bedside, reviewing the patient's pertinent medical records including radiographs, microbiology, laboratory evaluations, and discussion with primary team and critical care nursing.
Diagnostic data:
Chest x-ray 11/20/2023-right lower lobe asymmetrical pulm edema versus developing pneumonia, heart enlarged
Chest x-ray 11/22/2023-progressive right lower lobe pneumonia mild degree of pulmonary vascular congestion
Chest x-ray 11/29/2023- New postoperative changes; no pneumothorax; minimal left pleural effusion
Chest x-ray 12/01/2023- Stable postoperative changes with interval removal of endotracheal tube; no pneumothorax
Chest x-ray 12/02/2023- No significant interval change; Stable positioning of support lines and tubes. Minimal left basilar atelectasis.
Renal ultrasound 11/20/2023-simple upper pole right renal cyst measuring 3.9 cm, unremarkable otherwise
CT head 11/21/2023-no acute intracranial abnormalities, diffuse cortical atrophy
CT head 12/01/2023- There are no acute intracranial abnormalities; Old 1.5 cm lacunar infarct involving the head of the caudate and anterior limb of the internal capsule on the left; There is mild diffuse cortical atrophy with mild nonspecific white
matter changes
CT Chest 11/24/2023:
Progressive small bilateral pleural effusions and adjacent compressive atelectasis.
Pulmonary nodules, as described, with groundglass nodule measuring up to 7.1 mm. Recommend follow-up in 6-12 months.
1.4 cm left thyroid low-attenuation nodule. Consider nonemergent follow-up ultrasound assessment.
CT abdomen and pelvis 11/21/2023-moderate volume widespread colonic stool, 4 cm simple right renal cyst, prior cholecystectomy, small fat-containing umbilical hernia
Echocardiogram 11/20/2023-EF 35-40%, global hypokinesis, moderate mitral regurgitation, PA systolic 35
Subjective Dataa
Subjective Data
Date of Service:
Date of Service: December 02, 2023
Chief Complaint: Solar Consultant Follow Up
Subjective:
Patient seen and evaluated today at bedside. Still on milrinone which has been reduced down to 0.25mcg/kg/min. Was more responsive this morning but when I saw her she was responsive to tactile stimuli. Family members at bedside. Patient has
occasional cough. Currently on insulin drip at 0.2 units/h. Patient on room air breathing comfortably. Left + right pleural chest tubes in place with no airleak seen. BP 104/55 (139/58 via A-line).
Review of Systems
General: Unobtainable - Pat Unresp
Objective Data
Data Reviewed
Vital Signs / I&O / Oxygen:
Vital Signs
Temp Pulse Resp BP Pulse Ox
99.1 F 63 13 89/53 98
12/02/23 10:00 12/02/23 10:00 12/02/23 10:00 12/02/23 10:00 12/02/23 10:00
Intake and Output
12/01/23 12/02/23 12/03/23
06:59 06:59 06:59
Intake Total 1245.8 / 1245.8 720.1 / 750.0 699.6 / 699.6
Output Total 1010 / 1010 1620 / 1685 170 / 170
Balance 235.8 / 235.8 -899.9 / -935.0 529.6 / 529.6
SaO2 [CPAP/PSV] 100
SaO2 [SIMV] 100
SaO2 98
Nasal Cannula flow liters per 1
minute
Physical Exam
General: Respiratory Distress (Negative), Comfortable and Chills (Negative)
HEENT: Normocephalic and Anicteric
Cardiovascular: S1-S2 and Peripheral Edema (Negative)
Respiratory: Wheeze (Negative), Crackles (Carson upon inspiration on the anterior lung lincoln bilaterally), Rhonchi (Negative), Non-Labored Respirations and Chest Tube (Left/right pleural chest tubes)
GI: Soft, Non Distended, Non Tender and Normal Bowel Sounds
Neurology: Unresponsive (Moves all 4 extremities spontaneously to tactile stimulation but not opening eyes or following commands)
Skin: Warm, Dry and Jaundice (Negative)
Labs/Micro/Reports
Lab Data
12/02/23 05:31
12/02/23 05:31
[2023-12-02] MEDS: NSS (PRESERVATIVE FREE) 10 ML IV (11:06)
[2023-12-02] MEDS: PROTONIX IV 40 MG IV (11:06)
[2023-12-02 11:18] LABS: Glucose - Point of Care 90 mg/dl (70-99)
--- NOTE | 2023-12-02 11:30 | PTCARENOTE ---
Mediastinal chest tubes d/c'd per order. Epicardial V wire cut by CT SENIOR QUALITY TECHNICIAN. Cardene gtt now off. Neptune and cuff BP not correlating, spoke with CT SENIOR QUALITY TECHNICIAN. Titrating Cardene based on cuff BP at this time.
[2023-12-02 13:38] LABS: Glucose - Point of Care 83 mg/dl (70-99)
[2023-12-02] MEDS: NSS IV (14:21)
--- NOTE | 2023-12-02 14:23 | W.PN.CD ---
Today's Communication / Plan
-
-Stable status-post ICD implantation yesterday.
-Remains on milrinone; no longer on dobutamine.
Impression / Plan
-
BACKGROUND: 78F with CAD, last stent 2019, ICM EF 40%, chronic systolic HF, NIDDM, HTN, HLD, and CKD3 with recent hospitalization at [facility] with HTN emergency, pulm edema, requiring intubation and diagnosis of possible Takotsubo CM presents with
weakness. She did not undergo cath. She was discharged home, and then presented to with weakness on 11/19. She was found to have an KELLIE and a mildly elevated troponin. Echo 11/20/23 showed EF 35-40%, global HK, mild/mod MR, nl RV, mild TR, PASP 35.
Then, on evening of 11/21, had episode of chest pain, which appears to be in setting of NSTEMI. She was reloaded with ASA, continued on Plavix; and started on heparin and nitro drips.
CAD/NSTEMI
-Remains stable status-post CABG x4 (HINDS to LAD, GSV to D2, GSV to OM1, GSV to RPDA) on 11/29/[address] Robins, pod #3.
-Previous PCI to RCA, LAD, and Circ in past; last 2019.
-On ASA
Complete heart block status-post CABG:
-Stable status-post ICD implantation yesterday.
-Continue limited radiology technician.
Altered mental status:
- Somnolent today, but was more awake earlier.
- Head CT - negative for bleed
-Continue to monitor.
Acute HFrEF/ICM EF (30%):
-Remains on milrinone; no longer on dobutamine.
-GDMT throughout hospitalization.
-Continue supportive care.
KELLIE on CKD3b
-family reports b/l Cr of 1.4; was 3 on admit; currently 2.4--stable from yesterday.
-Continue to monitor; Nephrology following.
HTN
-She had HTN Urgency at prior hospitalization, which was believed to prompt pulmonary edema
-meds limited by KELLIE on CKD
-Resume Coreg once off dobutamine.
Type II DM
Anemia
-Being transfused 1 unit today.
CCT 38 min
Physical Exam
Vital Signs/Labs
Vital Signs
Temp Pulse Resp BP Pulse Ox
99.0 F 66 7 114/64 97
12/02/23 14:00 12/02/23 14:15 12/02/23 14:15 12/02/23 14:00 12/02/23 14:15
12/01/23 12/02/23 12/03/23
06:59 06:59 06:59
Actual Weight 67.6 kg
12/02/23 05:31
12/02/23 05:31
PT 18.7 Sec (11.4-14.6) H 11/29/23 14:56
INR 1.55 11/29/23 14:56
APTT 34.9 Sec (23.4-35.0) 11/29/23 14:56
Magnesium 2.4 mg/dl (1.6-2.3) H 12/02/23 05:31
Triglycerides 113 mg/dl (10-149) 11/24/23 04:50
LDL Cholesterol, Calc 63 mg/dl 11/24/23 04:50
VLDL Cholesterol, Calc 22 mg/dl (0-30) 11/24/23 04:50
HDL Cholesterol 44 mg/dl 11/24/23 04:50
11/20/23 11/22/23 11/24/23
07:36 20:15 04:50
Zta-D-Xkcikemyuaf Pept 1140 1950 43650
Physical Exam
Constitutional: No acute distress
EENT: Anicteric
Cardiovascular: Rhythm & rate is regular, Pedal edema is absent, Systolic murmur absent and S1S2 is normal
Respiratory: Respiratory effort normal and Lungs clear to auscul.
GI: Soft
Neuro/Psych: Other (Somnolent)
Other: Skin (Warm, dry, intact)
Data Reviewed
-
Date of Service: December 02, 2023
EKG: Tracing Personally Visualized and interpreted (Telemetry: Sinus rhythm, intermittent pacing)
Medical Tests (PFT, Pathology etc): Discussed with Nurse
Labs: Labs Reviewed by me
Critical Care Time (in minutes): 38
[2023-12-02] MEDS: FERRLECIT 110 MG IV (15:05)
[2023-12-02 15:15] LABS: Glucose - Point of Care 83 mg/dl (70-99)
--- NOTE | 2023-12-02 15:45 | PTOTSP ---
Speech Language Pathology
Clinical Swallow Evaluation
78F with admission for weakness, worsening KELLIE, NSTEMI s/p CABG x4 11/28 p/w clinical s/s of an impaired oropharyngeal swallow characterized by poor bolus formation/acceptance of PO trials this date 2/2 increased lethargy. Aspiration risk is
increased at this time 2/2 waxing and waning mentation and brief alertness periods.
Recommend:
1. NPO
2. Meds via non-oral means
3. ARHP - may have tsps of water sparingly WITH good oral care WHEN AWAKE AND ALERT ONLY/SUPERVISION REQUIRED
4. Aspiration precautionS
5. Oral care 3-5x a day
6. INDUSTRIAL PHOTOGRAPHER service to follow up at the acute care level and advance diet as able
[2023-12-02 16:27] LABS: B.E. -3.3 mmol/L; HCO3 21.1 mmol/L (21-28); Ionized Calcium 1.26 mMOL/L (1.15-1.33); O2 Saturation % 96.7 % (94-98); PCO2 34 mmHg (32-35); PO2 69 mmHg (83-108); Potassium 3.4 mMOL/L (3.5-5.1); Sodium 143 mMOL/L (136-145)
--- NOTE | 2023-12-02 17:30 | PTCARENOTE ---
Pt SR with occasional V pacing. Pt was titrated down to room air, pulse oximetry 97%. ABG collected and reviewed with ELIO RIOS. Placed back on 2L nasal cannula. Milrinone remains at 0.25mcg/kg/min. Insulin gtt d/c'd per order. DIGITAL TECHNICIAN attempted to see pt
several times today, however pt was too drowsy to safely assess swallowing, finally able to assess this afternoon cleared for sips of water with a spoon. Pt drowsy most of the day however more awake at this time.
[2023-12-02] MEDS: PRIMACOR 20 MG 100 IV (17:38)
[2023-12-02] MEDS: NOVOLOG FLEXPEN-MODERATE RESISTANCE SC (18:22)
[2023-12-02 18:23] LABS: Glucose - Point of Care 87 mg/dl (70-99)
--- NOTE | 2023-12-02 20:00 | PTCARENOTE ---
Report received from ROBERT Rodriguez. Pt assessed. VS recorded. Pt drowsy, lethargic yet arouses to voice. Opens eyes, focuses on speaker. States name, place, date, purpose as in hospital for her 'heart'. Tongue midline. No facial asymmetry. Pupils
3/sluggish. Stationary Engineer Refrigeration weakly to command. Wiggles toes to command.
BBS present. O2/2L/NC. Sats 97%. BBS present. Decreased throughout, and to bases. CDB and IS encouraged. Peak IS ~600 mls.
Audible heart tones. Pt with sinus beats and V pacing. HR 60's. L radial A line with pulsatile waveform. Also taking cuff BP.
Cardene gtt for SBP 120-140 mm HG
Milrinone gtt at 0.25 mcg/kg/min.
B Pleural CTx to -20 cm suction. SSG drainage.
Palpable radial pulses, B DP and PT pulses found via doppler.
For dressings/wounds/skin, see flowsheets.
Belly soft, nontender. Hypoactive bs x 4. Aspiration precautions followed. Pt repositioned in bed and OB up to 47 degrees. Supervised sips of water on spoon given without coughing or throat clearing. Pt nods to feeling she swallowed successfully.
Jones draining clear, yellow urine.
Will continue to monitor pt. Multiple family members at bedside and updated on pt status.
[2023-12-02] MEDS: KCL 50 IV (21:46)
--- NOTE | 2023-12-02 21:48 | PTCARENOTE ---
Pt c/o initially cramping R foot pain and progressing to 'shooting' RLE pain, rated 10/10. R DP and PT pulses found via doppler. R foot and leg warm, pink with cap refill < 2 seconds. Dressings intact without bleeding drainage. No redness, bruising
seen to RLE. R groin dressing intact. No hematoma palpated. PA notified of R foot pain. Offirmev 1 GM IV ordered and given. KCL 20 meq IV ordered and given per protocol over 1 hour. Daughters with pt.
[2023-12-03] VITALS (19 sets, daily range): BP systolic 89–151; BP diastolic 52–71; PULSE 66; O2SAT 97–100; BMI 28.4
--- NOTE | 2023-12-03 | PTCARENOTE ---
Blood glucose check done and is 91. No c/o pain to R LE after Ofirmev. Pt states L foot has pain (chronic). Air-heel boot removed and pt states it feels better. Remains V paced, AV paced at times, occasional PACs. Cardene gtt remains off. Milrinone
gtt at 0.25 mcg/kg/min. Pt on 2L/NC. Sats 97-99%. Pt going to sleep. Remains drowsy yet oriented x 4. Daughter staying overnight at pt bedside.
[2023-12-03 00:02] LABS: Glucose - Point of Care 91 mg/dl (70-99)
--- NOTE | 2023-12-03 04:00 | PTCARENOTE ---
Pt awoke from sleep c/o L foot pain. L foot warm, pink. DP and PT pulses found via doppler. States heel is painful. Foot rub with lotion given to B feet. Feet positioned onto pillow with no heel pressure. No breakdown seen to B heels. PA notified.
Ofirmev 1 GM IV ordered and given. Pt back to sleep.
[2023-12-03] MEDS: OFIRMEV 100 IV (04:16)
[2023-12-03] MEDS: CARDENE 200 IV (04:17)
[2023-12-03] MEDS: TYLENOL PO ×2 (04:17→15:20)
--- NOTE | 2023-12-03 05:41 | PTCARENOTE ---
Labs drawn and sent. Pt given CHG bath. Face washed. Turned onto R side with pillow. Will awaken and verbalizes understanding but falls back to sleep.
[2023-12-03 05:59] LABS: Hematocrit 22.9 % (37.0-47.0); Hemoglobin 7.8 g/dL (12.0-16.0); Mean Corp Hgb Conc. 34.1 g/dL (33.0-37.0); Mean Corpuscular Hgb 30.1 pg (27.0-31.0); Mean Corpuscular Volume 88.4 fL (81.0-99.0); Mean Platelet Volume 10.5 fL (7.4-10.4); Platelet Count 131 10^3/uL (130-400); Red Blood Cell Count 2.59 10^6/uL (4.20-5.40); White Blood Cell Count 11.8 10^3/uL (4.8-10.8)
[2023-12-03 06:24] LABS: ALT (SGPT) < 10 U/L (0-35); AST (SGOT) 37 U/L (14-36); Albumin 3.1 g/dl (3.5-5.0); Blood Urea Nitrogen 66 mg/dl (7-17); Calcium 9.2 mg/dl (8.4-10.2); Estimated Creatinine Clearance 17 ml/min; Glucose 77 mg/dl (70-99); Potassium 3.7 mmol/L (3.5-5.1); Total Bilirubin 0.7 mg/dl (0.2-1.3); Total Protein 5.1 g/dl (6.3-8.2); eGFR 19.32
[2023-12-03 06:34] LABS: Alkaline Phosphatase 50 U/L (38-126); Carbon Dioxide 18 mmol/L (22-30); Chloride 113 mmol/L (98-107); Magnesium 2.3 mg/dl (1.6-2.3); Sodium 143 mmol/L (135-145)
--- NOTE | 2023-12-03 06:37 | W.PN.CT ---
Today's Communication / Plan
-
S/P CABG: ASA/Plavix/High intensity statin/BB on hold due to inotropes (not taking PO)
Wean off Milrinone today, d/c art line
Chest tube: P-65/235. Remove today.
S/P AICD. Site CDI. Per Cardiology
Turn off oxygen. O2 sats 100% while sleeping on 2 L NC
Cr. 2.5 (2.4 yesterday) Nephrology following. Likely has some baseline CKD.
Keep pfeiffer for now due to KELLIE and neuro status
HypoK: consider 1 K rider given KELLIE
Speech following. ? dobhoff. Not receiving nutrition.
PT/OT/CR. Discussed with daughter who is considering Turner.
Assessment / Plan
-
Assessment:
-Severe 3v CAD- s/p CABG x 4 (HINDS to LAD, GSV to D2, GSV to OM1, GSV to RPDA) on 11/29/[address] Robins, pod #2
-Intraop SUPRIYA: LVEF 30-35%, global hypokinesis w/ minor improvement in lateral wall, mild MR, mild TR, no AI/, RV OK
-USA
-NSTEMI (peak trop 7.36)
-Hx of CAD S/P PCI with prior 7 stents, most recent stent in 2019
-Plavix washout, last dose on 11/23 @ 0832
-Acute on chronic ICM (LVEF 30% per TTE on 11/22)
-Systolic CHF with recent hospitalization at [facility] ([place] w/ HTN emergency, pulmonary edema requiring intubation - ? Takotsubo CM
-Mild-moderate MR
-Mildly dilated left atrium
-LBBB preop
-Tachycardia
-Hx of Takotsubo syndrome
-KELLIE on chronic CKD3b (cr 3.0 on 11/20, now 1.8, per family baseline Cr is 1.4)
-Chronic Anemia
-HTN
-HLD
-T2DM (A1C 6.9)
-LETTY lung nodules (7.1 mm, incidental findings from chest CT 11/23)
-Thyroid nodule (1.4 cm, incidental findings from chest CT 11/23)
-Mild right scoliosis
-Acute postop nsr with complete heart block with Junctional escape with RBBB ( had LBBB preop)- maintain epicardial pw, may need pacer postop
-Acute postop blood loss anemia on chronic anemia - s/p 1 pRBC preop 11/27, 3 pRBCs and 1 unit platelet intraop, 1pRBC and 2 FFPs postop 11/28+ 1pRBC on 11/29
-Acute postop coagulopathy
-Cardiogenic shock (postop CO/CI: 1.5/0.95; Preop starting CI 1.4)- requiring inotrops
-Acute postop hypovolemia with subsequent hypervolemia
-Acute postop atelectasis
-Acute postop long Qt
-KELLIE on CKD
-Acute postop lethargy- responds to voice, holding narcotics
Subjective
Procedure
- s/p CABG x 4 (HINDS to LAD, GSV to D2, GSV to OM1, GSV to RPDA) on 11/29/[address] Robins
More lethargic today. Wakes up and looks at me and then falls back asleep. Does not answer questions.
Was able to take in small amounts by mouth yesterday when working with speech
-
Date of Service: December 03, 2023
Objective Data
-
Lab Results
12/03/23 05:16
12/03/23 05:16
PT 18.7 Sec (11.4-14.6) H 11/29/23 14:56
INR 1.55 11/29/23 14:56
APTT 34.9 Sec (23.4-35.0) 11/29/23 14:56
Vital Signs
Vital Signs
Temp Pulse Resp BP Pulse Ox
98.2 F 69 10 89/52 100
12/03/23 06:00 12/03/23 06:00 12/03/23 05:45 12/03/23 06:00 12/03/23 06:00
CT Intake/Output/Weight
12/02/23 12/02/23 12/03/23
06:59 18:59 06:59
Intake Total 333.0 / 750.0 930.1 / 1317.8 387.7 / 1317.8
Output Total 905 / 1685 760 / 1510 750 / 1510
Balance -572.0 / -935.0 170.1 / -192.2 -362.3 / -192.2
SaO2: 100
Physical Exam
-
General: Other (lethargic)
Cardiovascular: Regular rate & rhythm
Respiratory: Clear and Equal
Sternum: Stable
Incision: Clean, Dry and Intact
Extremities: No Edema
Data Reviewed
-
Lab Results: Results Reviewed
Medications: Active Meds Reviewed
Chest X-Ray: Image Reviewed
[2023-12-03 06:49] LABS: Glucose - Point of Care 85 mg/dl (70-99)
--- NOTE | 2023-12-03 08:00 | PTCARENOTE ---
Assumed care of patient at 0700. Pt awake, somewhat drowsy able to state name, , place, and time. Pt with no complaints of pain. Pt remains SR with occasional V pacing. PPM in place. Cuff BP 116/65 MAP 80, A line 153/59 MAP 84. Pedal pulses
present with Doppler. Pt remains 2L nasal cannula, pulse oximetry 100%. Pleural chest tubes in place, no sign of air leak or crepitus. Bowel sounds hypoactive. Jones catheter in place. Left chest PPM incision Aquacel dressing CDI. Midsternal
incision Aquacel dressing CDI. Right leg incision Aquacel dressing CDI. Right IJ cordis in place. [place] intact. Remains on Cardene and Milrinone gtts.
--- NOTE | 2023-12-03 08:20 | W.PN.NEPH.PH ---
Today's Communication / Plan
-
Follow BMP
Would hold Lasix
Maintain Jones cath
Assessment/Plan
-
Assessment:
NSTEMI-MVD- s/p CABG x4 11/29/23
KELLIE on ?CKD
HyperK
Constipation
Weakness
C/f PNA
Plan:
s/p CABG today, SUPRIYA EF 35-40%
cr post op at 2.5 remains nonoliguric with approximately 1 L of urine, weights stable
I suspect creatinine is plateauing
on milrinone for cardiac output support but this is to be weaned
Hemodynamically more stable today
Metabolic acidosis exacerbated, will add oral bicarb if exacerbate
I suspect acute kidney injury is related to prerenal stimulus from compromised effective circulating volume
Chest x-ray personally reviewed presence of chest tube noted no overt congestive heart failure by my review, left anterior chest wall pacer
follow labs
As creatinine continues to rise we need to cut back Lasix administration as I do not think the patient is volume overload
d/w nursing and primary team
-
-
Date of Service: December 03, 2023
CC / HPI / ROS
-
Chief Complaint:
KELLIE
History of Present Illness:
Cr 2.5 post op, CABG x4 11/28
Hemodynamically improved with milrinone wean
hgb at 7.8 s/p 3 units pRBC,
Status post pacemaker placement for heart block on 12-22
Review of Systems:
Extubated and awake and interactive
Chest tube
Jones cath: non oliguric
No fever
Labs
-
Labs:
WBC 11.8 10^3/uL (4.8-10.8) H 12/03/23 05:16
RBC 2.59 10^6/uL (4.20-5.40) L 12/03/23 05:16
Hgb 7.8 g/dL (12.0-16.0) L 12/03/23 05:16
Hct 22.9 % (37.0-47.0) L 12/03/23 05:16
Plt Count 131 10^3/uL (130-400) 12/03/23 05:16
Sodium 143 mmol/L (135-145) 12/03/23 05:16
Potassium 3.7 mmol/L (3.5-5.1) 12/03/23 05:16
Chloride 113 mmol/L (98-107) H 12/03/23 05:16
Carbon Dioxide 18 mmol/L (22-30) L 12/03/23 05:16
BUN 66 mg/dl (7-17) H 12/03/23 05:16
Creatinine 2.5 mg/dL (0.6-1.0) H 12/03/23 05:16
eGFR 19.32 12/03/23 05:16
Glucose 77 mg/dl (70-99) 12/03/23 05:16
Calcium 9.2 mg/dl (8.4-10.2) 12/03/23 05:16
Bow-F-Cvtomxiojyk Pept 21794 pg/ml 11/24/23 04:50
Albumin 3.1 g/dl (3.5-5.0) L 12/03/23 05:16
Physical Exam
-
Vital Signs:
Vital Signs
Temp Pulse Resp BP Pulse Ox
97.9 F 67 15 117/63 100
12/03/23 07:00 12/03/23 07:45 12/03/23 07:45 12/03/23 07:00 12/03/23 07:45
Cardiovascular:: Regular rate and rhythm
Respiratory:: Bilateral: CTA
Lung Excursion:: Normal
Abdomen:: Nontender and Soft
Bowel Sounds:: Normal
Extremity Edema:: None: Bilateral: (But noted central edema)
Jones Catheter: Yes
[2023-12-03] MEDS: NSS (PRESERVATIVE FREE) 10 ML IV (08:40)
[2023-12-03] MEDS: BACTROBAN 2% OINTMENT 1 APPLIC NASAL (08:40)
[2023-12-03] MEDS: ASPIRIN 300 MG RECTAL (08:40)
[2023-12-03] MEDS: PROTONIX IV 40 MG IV (08:40)
[2023-12-03 09:36] LABS: Glucose - Point of Care 105 mg/dl (70-99)
[2023-12-03 09:49] LABS: B.E. -6.2 mmol/L; HCO3 18.9 mmol/L (21-28); O2 Saturation % 99.2 % (94-98); PCO2 35 mmHg (32-35); PO2 112 mmHg (83-108); pH 7.34 (7.35-7.45)
--- NOTE | 2023-12-03 09:50 | PTOTSP ---
Speech Language Pathology Follow-Up
78F with admission for weakness, worsening KELLIE, NSTEMI s/p CABG x4 11/28 continues to p/w clinical s/s of an impaired oropharyngeal swallow characterized by reduced bolus formation and delayed swallow initiation. Aspiration risk is increased at this
time 2/2 increased lethargy.
Recommend:
1. Trial soft and bite sized solids (IDDSI 6), thin liquids
2. Meds crushed in puree
3. Strategies: small bites, single sips, slow rate, chew well, ONLY FEED WHEN AWAKE AND ALERT
4. Aspiration precautions - oral care 3-5x/day; up as tolerated
5. METAL GRADER service to follow up at the acute care level, assess diet tolerance, and advance diet as able
[2023-12-03 10:01] LABS: Ammonia < 9 umol/L (9-30)
[2023-12-03 10:17] LABS: Mixed Venous O2 Saturation 71.7 %
[2023-12-03] MEDS: NOVOLOG FLEXPEN-MODERATE RESISTANCE SC (10:17)
[2023-12-03] MEDS: HEPARIN 5000 UNITS SC ×2 (10:26→20:04)
[2023-12-03] MEDS: SODIUM BICARBONATE 150 MEQ IV (10:26)
[2023-12-03] MEDS: CALCIUM CHLORIDE 10% SYRINGE 60 MG IV (10:36)
[2023-12-03] MEDS: PLAVIX 75 MG PO (10:49)
[2023-12-03] MEDS: VITAMIN C 250 MG PO (10:50)
[2023-12-03] MEDS: SENOKOT-S 1 TABLET PO ×2 (10:50→20:04)
[2023-12-03] MEDS: CRESTOR 20 MG PO (10:50)
[2023-12-03] MEDS: LIDOCAINE 4% PATCH TOPICAL (10:56)
[2023-12-03] MEDS: LOW STRENGTH ASPIRIN PO (10:56)
--- NOTE | 2023-12-03 11:29 | W.PN.INTV ---
Today's Communication / Plan
Recommendations
Pt awake, alert and tolerating PO diet
Maintain MAP >65
Goal SpO2 >90-94%
Up OOB as tolerated
Encourage incentive spirometer
Patient has been weaned off of milrinone, is awake, alert and tolerating PO diet. She has been transferred to CVICU�telemetry status. Muffler Installer/Pulmonary service will now sign off. Please reconsult if there are any additional
questions/concerns, or if patient's respiratory status deteriorates.
Assessment
-
78-year-old AAF with a PMHx of hypertension, hyperlipidemia, HFrEF, DM type II, CKD and CAD s/p coronary stents who presented with family due to increased sugar and fatigue. Apparently blood glucose was in the 4�500 range at home. She was recently
hospitalized at [facility] due to fluid around her heart, and she also was apparently intubated during that hospitalization for several days. In the ER she was afebrile to 98.3 �F, pulse rate 69, breathing at 16 breaths/min, blood pressure
136/73 and saturating 97% on room air. Initial labs showed Hb 9.5, creatinine 2.9, BUN 75, potassium 5.2, troponin 0.087, proBNP 1140, urinalysis negative for UTI, beta-hydroxybutyrate 0.19. Initial CXR showed RLL airspace/interstitial opacities
suspicious for pneumonia versus asymmetric pulmonary edema. She was started on antibiotics with cefepime, IV vancomycin and was admitted to telemetry under the hospitalist. Cardiology and nephrology were consulted. Rapid response called on 11/21
due to chest pain and shortness of breath. Nitro given without relief and Lasix 20 mg IV push given as well. Patient transferred to the ICU for further care with heparin drip started given concern for ACS versus PE. Echo showed reduced LVEF at
30% and more pronounced lateral/inferolateral hypokinesis. Troponin considerably increased and peaked at 7.36 on 11/23/2023. Of note, VQ scan obtained on 11/22 showed low risk study for PE. Patient underwent left heart catheterization on 11/23
showing severe multisegment triple-vessel CAD. CT chest on 11/23 also showed progressive small bilateral pleural effusions with lung nodules including a subpleural 7.1 mm GGO in the right upper lobe. Cardiothoracic surgery was consulted, and on
11/29/2023 she underwent CABG x 4 with no complications, and transferred to the CVICU on dobutamine, insulin, and 4 chest tubes (bilateral pleural, inferior mediastinal + superior mediastinal). Critical care services now consulted for additional
management/recommendations.
Impression:
Multivessel CAD s/p multiple coronary stents s/p CABG x 4 (POD#4)
CHB with HFrEF s/p dual-chamber ICD (implanted 12/01/2023)
Acute coronary syndrome with NSTEMI
Acute on chronic HFrEF/ICM
Hypertensive urgency at prior hospitalization prompted pulmonary edema
Pneumonia-right lower lobe
Hypoxemic and hypercapnic respiratory insufficiency
KELLIE on top of chronic kidney disease
Multiple pulmonary nodules including 7.1 mm subpleural GGO in the right upper lobe
Anemia
QT prolongation (QTc: 515ms from today's EKG)
Hyperglycemia
Left foot pain
Fecal impaction
Transaminitis
Umbilical hernia
DJD
Conditions present prior to admission:
Hypertension.
Hyperlipidemia.
CHF reduced EF-EF 40%
Chronic systolic heart failure
CAD-last stent 2018
Chronic renal failure.
Diabetes. 2 cm left renal simple cyst
Cholecystectomy
Plan:
Patient continues to breathe comfortably on RA with SpO2 97%
Maintain goal SpO2 >90-94%
prn nebulized bronchodilators
Patient's mental status has normalized, she is awake, alert and tolerating PO diet
Of note, CT head on morning of 11/30 shows no acute intracranial abnormalities with old 1.5 cm lacunar infarct (on the left)
Milrinone has been successfully weaned off
She underwent dual-chamber ICD placement on12/01/2023 due to history of complete heart block with chronic systolic heart failure
Monitor hemoglobin
Monitor platelet count and coags
Transfuse blood product if needed to keep Hb >8g/dL, plt>50k (given post-operative status)
-Last transfusion was yesterday AM with 1 unit PRBC due to Hb of 7.4 - Hb this AM is 7.8
Chest tubes have been removed
Given concern for RLL pneumonia, she is already s/p course of antibiotics with Doxy + Zosyn x 2 days s/p IV vanco x 2 doses, cefepime x1 dose in ER, and rocephin x 2 doses
Ranolazine was previously being held given QT prolongation
Bowel regimen
Monitor blood sugar with goal BG 140-180mg/dL
Insulin SQ as needed to maintain BG goal as above
Given patient has multiple pulmonary nodules seen on CT chest from 11/24/2023, would repeat CT chest imaging without contrast in about 4-6 weeks to assess for resolution versus persistence of these nodules
Aspiration precautions
DVT prophylaxis
Early nutrition
Early mobilization
Patient has been weaned off of milrinone, is awake, alert and tolerating PO diet. She has been transferred to CVICU�telemetry status. Muffler Installer/Pulmonary service will now sign off. Thank you for allowing us to be involved in the care of this
patient. Please reconsult if there are any additional questions/concerns, or if patient's respiratory status deteriorates.
Total time spent today was 55 minutes for this encounter. Time includes reviewing laboratory test/imaging results, reviewing pertinent medical records, obtaining and reviewing medical history, performing an appropriate exam, ordering medications,
tests and procedures. Time also includes documentation of this encounter, coordinating patient care and communicating with other healthcare professionals. Total time does not include separately billed tests performed on this date of service.
Diagnostic data:
Chest x-ray 11/20/2023-right lower lobe asymmetrical pulm edema versus developing pneumonia, heart enlarged
Chest x-ray 11/22/2023-progressive right lower lobe pneumonia mild degree of pulmonary vascular congestion
Chest x-ray 11/29/2023- New postoperative changes; no pneumothorax; minimal left pleural effusion
Chest x-ray 12/01/2023- Stable postoperative changes with interval removal of endotracheal tube; no pneumothorax
Chest x-ray 12/02/2023- No significant interval change; Stable positioning of support lines and tubes. Minimal left basilar atelectasis.
Chest x-ray 12/03/2023-Interval removal of the bilateral chest tubes without visible pneumothorax; small right pleural effusion with adjacent atelectasis.
Renal ultrasound 11/20/2023-simple upper pole right renal cyst measuring 3.9 cm, unremarkable otherwise
CT head 11/21/2023-no acute intracranial abnormalities, diffuse cortical atrophy
CT head 12/01/2023- There are no acute intracranial abnormalities; Old 1.5 cm lacunar infarct involving the head of the caudate and anterior limb of the internal capsule on the left; There is mild diffuse cortical atrophy with mild nonspecific white
matter changes
CT Chest 11/24/2023:
Progressive small bilateral pleural effusions and adjacent compressive atelectasis.
Pulmonary nodules, as described, with groundglass nodule measuring up to 7.1 mm. Recommend follow-up in 6-12 months.
1.4 cm left thyroid low-attenuation nodule. Consider nonemergent follow-up ultrasound assessment.
CT abdomen and pelvis 11/21/2023-moderate volume widespread colonic stool, 4 cm simple right renal cyst, prior cholecystectomy, small fat-containing umbilical hernia
Echocardiogram 11/20/2023-EF 35-40%, global hypokinesis, moderate mitral regurgitation, PA systolic 35
Subjective Dataa
Subjective Data
Date of Service:
Date of Service: December 03, 2023
Chief Complaint: Muffler Installer Follow Up
Subjective:
Seen and evaluated today at bedside. She is now awake and following commands, answering questions appropriately. Family members at bedside. She is also weaned off of milrinone. BP 123/71, heart rate 74 and she is saturating 95% on room air.
Right IJ cordis in place. Patient denies shortness of breath, chest pain, headache, abdominal pain, fevers or chills.
Review of Systems
General: Other (Negative unless mentioned above)
Objective Data
Data Reviewed
Vital Signs / I&O / Oxygen:
Vital Signs
Temp Pulse Resp BP Pulse Ox
97.7 F 68 20 138/69 98
12/03/23 11:00 12/03/23 11:00 12/03/23 11:00 12/03/23 11:00 12/03/23 11:15
Intake and Output
12/02/23 12/03/23 12/04/23
06:59 06:59 06:59
Intake Total 720.1 / 750.0 1317.8 / 1342.6 99.2 / 99.2
Output Total 1620 / 1685 1510 / 1610 285 / 285
Balance -899.9 / -935.0 -192.2 / -267.4 -185.8 / -185.8
SaO2 [CPAP/PSV] 100
SaO2 [SIMV] 100
SaO2 98
Nasal Cannula flow liters per 2
minute
Physical Exam
General: Respiratory Distress (Negative), Comfortable and Chills (Negative)
HEENT: Normocephalic and Anicteric
Cardiovascular: S1-S2 and Peripheral Edema (Negative)
Respiratory: Wheeze (Negative), Crackles ([place] upon inspiration on the anterior lung [place] bilaterally), Rhonchi (Negative) and Non-Labored Respirations
GI: Soft, Non Distended, Non Tender and Normal Bowel Sounds
Neurology: Awake, Alert and Tremors (negative)
Skin: Warm, Dry and Jaundice (Negative)
Labs/Micro/Reports
Lab Data
12/03/23 05:16
12/03/23 05:16
Laboratory Results
12/02/23 12/03/23
16:22 09:34
pH 7.40 7.34 L
pCO2 34 35
pO2 69 L 112 H
HCO3 21.1 18.9 L
O2 Delivery Level
--- NOTE | 2023-12-03 11:43 | W.PN.CD ---
Today's Communication / Plan
-
-Slowly improving clinically.
-Remains stable status-post ICD implantation.
-On low-dose milrinone; trying to wean off.
Impression / Plan
-
BACKGROUND: 78F with CAD, last stent 2019, ICM EF 40%, chronic systolic HF, NIDDM, HTN, HLD, and CKD3 with recent hospitalization at [facility] with HTN emergency, pulm edema, requiring intubation and diagnosis of possible Takotsubo CM presents with
weakness. She did not undergo cath. She was discharged home, and then presented to with weakness on 11/19. She was found to have an KELLIE and a mildly elevated troponin. Echo 11/20/23 showed EF 35-40%, global HK, mild/mod MR, nl RV, mild TR, PASP 35.
Then, on evening of 11/21, had episode of chest pain, which appears to be in setting of NSTEMI. She was reloaded with ASA, continued on Plavix; and started on heparin and nitro drips.
CAD/NSTEMI
-Status-post CABG x4 (HINDS to LAD, GSV to D2, GSV to OM1, GSV to RPDA) on 11/29/[address] Robins, pod #3.
-Slowly improving clinically.
-Previous PCI to RCA, LAD, and Circ in past; last 2018.
-On ASA
Complete heart block status-post CABG:
-Remains stable status-post ICD implantation.
-Continue recoater.
Altered mental status:
- More awake this a.m.; working with physical therapy to sit up in bed.
- Head CT - negative for bleed
- Continue to monitor.
Acute HFrEF/ICM EF (30%):
-On low-dose milrinone; trying to wean off.
-GDMT throughout hospitalization.
-Continue supportive care.
KELLIE on CKD3b
-family reports b/l Cr of 1.4; was 3 on admit; currently 2.5 (was 2.4 yesterday)--relatively stable.
-Continue to monitor; Nephrology following.
HTN
-She had HTN Urgency at prior hospitalization, which was believed to prompt pulmonary edema
-meds limited by KELLIE on CKD
-Resume Coreg once off dobutamine.
Type II DM
Anemia
-Stable status-posttransfusion.
Physical Exam
Vital Signs/Labs
Vital Signs
Temp Pulse Resp BP Pulse Ox
97.7 F 68 20 138/69 98
12/03/23 11:00 12/03/23 11:00 12/03/23 11:00 12/03/23 11:00 12/03/23 11:15
12/02/23 12/03/23 12/04/23
06:59 06:59 06:59
Actual Weight 67.6 kg 68.1 kg
12/03/23 05:16
12/03/23 05:16
PT 18.7 Sec (11.4-14.6) H 11/29/23 14:56
INR 1.55 11/29/23 14:56
APTT 34.9 Sec (23.4-35.0) 11/29/23 14:56
Magnesium 2.3 mg/dl (1.6-2.3) 12/03/23 05:16
Triglycerides 113 mg/dl (10-149) 11/24/23 04:50
LDL Cholesterol, Calc 63 mg/dl 11/24/23 04:50
VLDL Cholesterol, Calc 22 mg/dl (0-30) 11/24/23 04:50
HDL Cholesterol 44 mg/dl 11/24/23 04:50
11/20/23 11/22/23 11/24/23
07:36 20:15 04:50
Qzy-J-Ybjgewpondy Pept 1140 1950 [id number]
Physical Exam
Constitutional: No acute distress and Comfortable
EENT: Anicteric
Cardiovascular: Rhythm & rate is regular, Pedal edema is absent, Systolic murmur absent and S1S2 is normal
Respiratory: Respiratory effort normal and Lungs clear to auscul.
GI: Soft
Neuro/Psych: AO x 3
Other: Skin (Warm, dry, intact)
Data Reviewed
-
Date of Service: December 03, 2023
EKG: Tracing Personally Visualized and interpreted (Telemetry: Sinus rhythm)
Medical Tests (PFT, Pathology etc): Discussed with Physician (CT Surgery team) and Discussed with Nurse
Labs: Labs Reviewed by me
Critical Care Time (in minutes): 35
--- NOTE | 2023-12-03 12:42 | PTCARENOTE ---
Pleural chest tubes d/c'd per order. Bedside x-ray completed. CREDIT AND COLLECTIONS REPRESENTATIVE evaluated pt, recommending soft/bite size food and thin liquids. Pt ate entire breakfast meal. PT/OT worked with pt able to sit on side of bed and brush teeth. ABG collected and
reviewed. Base excess -6.2 Bicarb and Calcium chloride administered per order. Milrinone and Cardene gtts d/c'd.
[2023-12-03 13:23] LABS: Glucose - Point of Care 227 mg/dl (70-99)
[2023-12-03] MEDS: NOVOLOG FLEXPEN-MODERATE RESISTANCE 3 UNITS SC ×2 (13:23→17:15)
--- NOTE | 2023-12-03 16:05 | PTCARENOTE ---
Pt remains awake and oriented throughout the day. Pt ate 100% of lunch. Pt remains SR with HR 70's. BP 145/69 MAP 92. Pulse oximetry 96% on room air. Jones remains in place draining yellow urine. Right IJ cordis remains in place. Left radial [place]
removed per order.
[2023-12-03] MEDS: PACERONE 200 MG PO ×2 (16:15→21:29)
[2023-12-03] MEDS: NSS 500 IV (16:20)
[2023-12-03 17:17] LABS: Glucose - Point of Care 229 mg/dl (70-99)
[2023-12-03] MEDS: TYLENOL 1000 MG PO (21:29)
[2023-12-03] MEDS: LANTUS 0.1 UNITS SC (22:07)
[2023-12-03 22:10] LABS: Glucose - Point of Care 203 mg/dl (70-99)
[2023-12-04] VITALS (15 sets, daily range): BP systolic 145–188; BP diastolic 68–94; PULSE 64–65; O2SAT 96–99; BMI 27.6
[2023-12-04 04:45] LABS: Hemoglobin 9.1 g/dL (12.0-16.0); Mean Corp Hgb Conc. 33.7 g/dL (33.0-37.0); Mean Corpuscular Hgb 30.5 pg (27.0-31.0); Mean Corpuscular Volume 90.6 fL (81.0-99.0); Mean Platelet Volume 9.6 fL (7.4-10.4); Platelet Count 148 10^3/uL (130-400); Red Blood Cell Count 2.98 10^6/uL (4.20-5.40); Red Cell Dist. Width 14.6 % (11.5-14.5); White Blood Cell Count 10.6 10^3/uL (4.8-10.8)
[2023-12-04 05:07] LABS: Blood Urea Nitrogen 71 mg/dl (7-17); Calcium 9.3 mg/dl (8.4-10.2); Carbon Dioxide 29 mmol/L (22-30); Chloride 111 mmol/L (98-107); Estimated Creatinine Clearance 21 ml/min; Glucose 119 mg/dl (70-99); Potassium 3.5 mmol/L (3.5-5.1); Sodium 146 mmol/L (135-145); eGFR 25.26
--- NOTE | 2023-12-04 05:42 | W.PN.CT ---
Addendum entered and electronically signed by LULU Guerrier 12/04/23 11:30:
CDI QUERY RESPONSE
Acute hypoxic respiratory failure, evolved after admission, now resolved
Complete Heart Block is unexpected but is NOT a complication of the surgery
KELLIE with ATN
Original Note:
Today's Communication / Plan
-
-pod #5
-no drips
-pt is more interactive, A&O x4. Holding narcs
-diet advanced, tolerating more po meds
-remains in nsr with occasional a-pacing, PVCs (s/p icd implant 12/01/23)
-weaned off O2 - pOx 93-95% on RA
-Cr improving - 2.0 today (peak 2.5 on 12/02, and 1.7-1.8 preop)
-follow Hg -9.1/27.0 today
-maintain Jones (UO 30-50cc/hr)
-Tmax 100.4-follow. Encourage IS (500 cc so far)- will check UA
-small R pleural effusion/atelectasis- follow
-hypertensive- ? restarting Coreg
-current meds (ASA, Plavix, Amio, Protonix, ISS/Lantus).
-Heparin sq for DVT prophylaxis
-continue PT/OT. Will need inpatient rehab
-appreciate everyone's input
Assessment / Plan
-
Assessment:
-Severe 3v CAD- s/p CABG x 4 (HINDS to LAD, GSV to D2, GSV to OM1, GSV to RPDA) on 11/29/[address] Robins, pod #5
-Intraop SUPRIYA: LVEF 30-35%, global hypokinesis w/ minor improvement in lateral wall, mild MR, mild TR, no AI/, RV OK
-[place]
-NSTEMI (peak trop 7.36)
-Hx of CAD S/P PCI with prior 7 stents, most recent stent in 2019
-Plavix washout, last dose on 11/23 @ 0832
-Acute on chronic ICM (LVEF 30% per TTE on 11/22)
-Systolic CHF with recent hospitalization at [facility] ([place]) w/ HTN emergency, pulmonary edema requiring intubation - ? Takotsubo CM
-Mild-moderate MR
-Mildly dilated left atrium
-LBBB preop
-Tachycardia
-Hx of Takotsubo syndrome
-KELLIE on chronic CKD3b (cr 3.0 on 11/20, now 1.8, per family baseline Cr is 1.4)
-Chronic Anemia
-HTN
-HLD
-T2DM (A1C 6.9)
-LETTY lung nodules (7.1 mm, incidental findings from chest CT 11/23)
-Thyroid nodule (1.4 cm, incidental findings from chest CT 11/23)
-Mild right scoliosis
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
-Acute postop blood loss anemia on chronic anemia - s/p 1 pRBC preop 11/27, 3 pRBCs and 1 unit platelet intraop, 1pRBC and 2 FFPs postop 11/28+ 1pRBC on 11/29+ 1pRBC on 12/01
-Acute postop coagulopathy
-Cardiogenic shock (postop CO/CI: 1.5/0.95; Preop starting CI 1.4)- requiring inotrops
-Acute postop hypovolemia with subsequent hypervolemia
-Acute postop atelectasis
-Acute postop long Qt
-KELLIE on CKD
-Acute postop lethargy- responds to voice, holding narcotics-improved, now A&O x4
Discussed patient care with: Nursing and Care Team
Subjective
Procedure
- s/p CABG x 4 (HINDS to LAD, GSV to D2, GSV to OM1, GSV to RPDA) on 11/29/[address] Robins
More lethargic today. Wakes up and looks at me and then falls back asleep. Does not answer questions.
Was able to take in small amounts by mouth yesterday when working with speech
-
Date of Service: December 03, 2023
Objective Data
-
Lab Results
12/03/23 05:16
12/03/23 05:16
PT 18.7 Sec (11.4-14.6) H 11/29/23 14:56
INR 1.55 11/29/23 14:56
APTT 34.9 Sec (23.4-35.0) 11/29/23 14:56
Vital Signs
Vital Signs
Temp Pulse Resp BP Pulse Ox
100.3 F 74 18 151/70 93
12/03/23 20:00 12/03/23 21:29 12/03/23 20:00 12/03/23 21:29 12/03/23 20:00
CT Intake/Output/Weight
12/03/23 12/03/23 12/04/23
06:59 18:59 06:59
Intake Total 387.7 / 1342.6 379.2 / 809.2 430 / 809.2
Output Total 750 / 1610 940 / 1120 180 / 1120
Balance -362.3 / -267.4 -560.8 / -310.8 250 / -310.8
SaO2: 93
Physical Exam
-
General: Awake and AOx3
Cardiovascular: Regular rate & rhythm, No Murmurs and Rub
Respiratory: Decreased Breath Sounds
Sternum: Stable
Incision: Clean, Dry and Dressing Intact
Extremities: Edema +1
Data Reviewed
-
Lab Results: Results Reviewed
Medications: Active Meds Reviewed
Chest X-Ray: Report Reviewed and Image Reviewed
ECG: Report Reviewed and Image Reviewed
--- NOTE | 2023-12-04 07:11 | W.PN.CD ---
Today's Communication / Plan
-
Removed pfeiffer as planned
Check urine cx in next day or two
Impression / Plan
-
BACKGROUND: 78F with CAD, last stent 2019, ICM EF 40%, chronic systolic HF, NIDDM, HTN, HLD, and CKD3 with recent hospitalization at [place] with HTN emergency, pulm edema, requiring intubation and diagnosis of possible Takotsubo CM presents with
weakness. She did not undergo cath. She was discharged home, and then presented to with weakness on 11/19. She was found to have an KELLIE and a mildly elevated troponin. Echo 11/20/23 showed EF 35-40%, global HK, mild/mod MR, nl RV, mild TR, PASP 35.
Then, on evening of 11/21, had episode of chest pain, which appears to be in setting of NSTEMI. She was reloaded with ASA, continued on Plavix; and started on heparin and nitro drips.
CAD/NSTEMI
-Status-post CABG x4 (HINDS to LAD, GSV to D2, GSV to OM1, GSV to RPDA) on 11/29/[address] Robins, pod #3.
-Clearly improving clinically.
-Previous PCI to RCA, LAD, and Circ in past; last 2018.
-On ASA
Complete heart block status-post CABG:
-Remains stable status-post ICD implantation.
-Continue athletic monitor.
Altered mental status:
- Resolved
- Head CT - negative for bleed
Acute HFrEF/ICM EF (30%):
-Coreg resumed
-Would hold off on restarting ACEI until Cr back to baseline of approx 1.5. Can use prn hydralazine for BP control as needed
-Continue supportive care.
KELLIE on CKD3b
-Cr peaked at 2.5 post CABG now falling and 2.0. Baseline approx 1.5
-Continue to monitor; Nephrology following.
HTN
-Coreg resumed- would increase to 6.25 bid (home dose was 12.5 bid)
-Has device so no worry about bradycardia
-prn hydralazine appropriate now. We want to resume ACEI once Cr gets back to baseline
Type II DM
Anemia
-Stable status-posttransfusion.
Fever
-CXR without infiltrate (8-4)
-WBC not trending up
-Neither ICD pocket or SVG harvest sites or sternum show signs of infection at present
-Agree with plan to remove Pfeiffer today
Physical Exam
Vital Signs/Labs
Vital Signs
Temp Pulse Resp BP Pulse Ox
100.4 F H 68 18 152/72 93
12/04/23 00:24 12/04/23 00:24 12/04/23 00:24 12/04/23 00:00 12/04/23 00:00
12/03/23 12/04/23 12/05/23
06:59 06:59 06:59
Actual Weight 150 lb 2.157 oz
12/04/23 04:38
12/04/23 04:38
PT 18.7 Sec (11.4-14.6) H 11/29/23 14:56
INR 1.55 11/29/23 14:56
APTT 34.9 Sec (23.4-35.0) 11/29/23 14:56
Magnesium 2.3 mg/dl (1.6-2.3) 12/03/23 05:16
Triglycerides 113 mg/dl (10-149) 11/24/23 04:50
LDL Cholesterol, Calc 63 mg/dl 11/24/23 04:50
VLDL Cholesterol, Calc 22 mg/dl (0-30) 11/24/23 04:50
HDL Cholesterol 44 mg/dl 11/24/23 04:50
11/20/23 11/22/23 11/24/23
07:36 20:15 04:50
Vyj-H-Kcyunbcipjn Pept 1140 1950 [id number]
Physical Exam
Constitutional: Comfortable
Cardiovascular: Rhythm & rate is regular and S1S2 is normal
Respiratory: Respiratory effort normal, Wheeze Absent and Crackles Absent
GI: Non tender
Neuro/Psych: AO x 3 and Motor deficits absent
Other: Cardiac Device Site (clean and dry. No sign of infection.)
Data Reviewed
-
Date of Service: December 04, 2023
[2023-12-04 07:23] LABS: Urine Albumin 1+ (Neg - Trace); Urine Bilirubin Negative (Negative); Urine Character Clear (Clear); Urine Color Yellow; Urine Glucose Negative (Negative); Urine Ketone Negative (Negative); Urine Leukocyte Negative (Negative); Urine Nitrite Negative (Negative); Urine Occult Blood 2+ (Negative); Urine Specific Gravity 1.015 (<1.030); Urine Urobilinogen Negative (Neg - 1+)
[2023-12-04 07:41] LABS: Glucose - Point of Care 132 mg/dl (70-99)
[2023-12-04] MEDS: NOVOLOG FLEXPEN-MODERATE RESISTANCE SC (07:50)
[2023-12-04 07:52] LABS: Urine Bacteria Few (Negative)
[2023-12-04] MEDS: KLOR-CON 40 MEQ PO (07:54)
[2023-12-04] MEDS: VITAMIN C 250 MG PO (07:56)
[2023-12-04] MEDS: COREG 3.125 MG PO ×2 (07:56→20:15)
[2023-12-04] MEDS: LOW STRENGTH ASPIRIN 81 MG PO (07:56)
[2023-12-04] MEDS: PACERONE 200 MG PO ×3 (07:57→22:31)
[2023-12-04] MEDS: SENOKOT-S 1 TABLET PO ×2 (07:58→20:17)
[2023-12-04] MEDS: PROTONIX 40 MG PO (07:58)
[2023-12-04] MEDS: PLAVIX 75 MG PO (07:58)
[2023-12-04] MEDS: CRESTOR 20 MG PO (07:58)
[2023-12-04] MEDS: TYLENOL 1000 MG PO ×3 (07:59→22:31)
[2023-12-04] MEDS: HEPARIN 5000 UNITS SC ×2 (08:42→20:16)
--- NOTE | 2023-12-04 08:45 | PTCARENOTE ---
Received pt from [facility]; Pt is AAOx3, slight delay when answering, overall L sided weakness from previous CVA. NSR with occasional V-paced beats, + radial pulses, DP/TP pulses heard on doppler, +2 edema on L hand, +1 edema R hand, - edema
bilateral LL. Resps course LML/LLL and diminished bi-laterally in bases, I/S encouraged. Robert d/c'ed at 0930, pt due to void by 1530. Hypoactive BS. Harshil d/c'ed 09. L Perpherial flushes, no redness/swelling. Sternal aquacel C/D/I, C/T dressings
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 w/surgical glue. L chest wall pacer site aquacel C/D/I. R groin dressing removed. Plan of day discussed with pt and family members.
--- NOTE | 2023-12-04 09:04 | W.PN.ONC2 ---
Today's Communication / Plan
-
daily CBC, transfuse prn
Impression
Impression
Normocytic normochromic anemia, most likely due to protracted hospitalizations and renal insufficiency. s/p 7unit prbc during hospitalization, last 12/01
Coronary artery disease, s/p CABG 11/29/2023
Acute kidney injury, improving, creatinine 2
leukocytosis -resolved
mild thrombocytopenia resolved
Plan
Plan
Anemia, multifactorial including KELLIE, frequent phlebotomy, surgery.
I would not consider her for erythropoietin supplementation in the immediate post operative setting, however, if her hemoglobin does not return 10g/dL within several weeks then would consider erythropoietin in outpt follow up.
Subjective/Objective
Chief Complaint
Tmax 100.4F, no hypoxia or hypotension
denies pain, N/V
Subjective
no new complaints
denies bleeding
Vital Signs:
Vital Signs
Temp Pulse Resp BP Pulse Ox
99.7 F 69 16 166/84 93
12/04/23 08:00 12/04/23 08:00 12/04/23 08:00 12/04/23 08:00 12/04/23 08:00
Lab Results:
Laboratory Data
WBC 10.6 10^3/uL (4.8-10.8) 12/04/23 04:38
Hgb 9.1 g/dL (12.0-16.0) L 12/04/23 04:38
Plt Count 148 10^3/uL (130-400) 12/04/23 04:38
PT 18.7 Sec (11.4-14.6) H 11/29/23 14:56
INR 1.55 11/29/23 14:56
APTT 34.9 Sec (23.4-35.0) 11/29/23 14:56
eGFR 25.26 12/04/23 04:38
Physical Exam
HEENT: Moist Mucous Membranes; No Jaundice
Cardiology: S1 and S2
Pulmonary: Clear
GI: Soft
Neuro: Non Focal
Review of Systems
Review of Systems
ROS notable for subjective, otherwise negative
[2023-12-04] MEDS: LASIX 40 MG IV (09:35)
--- NOTE | 2023-12-04 09:35 | PN.CDI ---
Addendum entered and electronically signed by Carrillo Banerjee MD 12/04/23 12:31:
At this point patient is not under my care. Will not change documented diagnosis at this time
Original Note:
CDI
- -
CDI:
Physician Documentation Request
Admit Date: 11/23/23 19:57
Dear Doctor Lavonne,
Please review the following and provide your response in the progress notes.
Clinical Indicators:
11/22/23 20:40 (created 11/23/23 04:11) - Rapid Response
#Patient up to bedside commode and complaining of '02/07 chest pain and pressure',
#...described it as radiating down her left arm. Patient diaphoretic and hypoxic.
#Patient assisted back into bed and RR called.
#EKG showing sinus tachycardia, BP elevated,
#...pulse ox 91% on 3L.
#...Orders for sublingual nitro given x3, 1mg IV morphine, and 243 mg aspirin.
#Patient placed on 10L midflow, received breathing tx from RT.
#Patient transferred to ICU per orders,
11/22/23 22:45 - Patient Care Note
#received patient after rapid response.
#...weaned from the non-rebreather to 4L NC.
Intake Manager, consult, 11/22
#Hypoxemic and mild hypercapnic respiratory insufficiency
#...--ABG 11/22/2023--46/62/7.33-on 6 L nasal cannula
PN, 11/26
#Acute hypoxic insufficiency
Selected Entries
11/22/23
20:10 11/22/23
20:15 11/22/23
20:21
SaO2
Flow liters per minute #
Oxygen Mode of Delivery Midflow Nasal
Cannula Midflow Nasal
Cannula
Nasal Cannula flow liters per minute 6 10 15
11/22/23
20:44 11/22/23
21:00 11/22/23
21:00
SaO2 92
Flow liters per minute # 15 15
Oxygen Mode of Delivery Non-rebreather
mask Non-rebreather
mask
Nasal Cannula flow liters per minute
Laboratory Tests
11/22/23
20:29
pH 7.33 L
pCO2 46 H
pO2 62 L
ABG O2 Sat (Measured) 91.3 L
Please clarify which of the following accurately represents the patient's respiratory status:
Acute respiratory failure, evolved after admission, now resolved
Acute hypoxic respiratory insufficiency
Hypoxia
Other(please specify)
Additional information for Respiratory Failure:
Recognized criteria for Respiratory Failure (Source: [facility] Mar 2013)
ABGs: (1 or more) Symptoms Please indicate type if known
1. p)2 <60 or RA SPO2 <91% on RA 1. Tachypnea, SOB, dyspnea Hypoxic
2. pCO2 50 and pH <7.35 2. Use of accessory muscles Hypercapnic
3. pO2 decrease of pCO2 increase by 3. Pallor or cyanosis Hypoxic and Hypercapnic
10 mmHg from baseline if known 4. Anxiety or restlessness
5. Unable to speak in full sentences
Supplemental O2 of > 40% (5LPM) Intubation is not required
Use of terms such as suspected, likely, concern for, or probable (associated with a specific diagnosis that is being evaluated, monitored, or treated as if it exists) are acceptable and can be coded in the inpatient setting, when documented at the
time of discharge.
Thank you,
Erin Bishop RN BSN CCDS
CDI Specialist
please contact via tiger text
Please use your independent medical judgment in providing your response.
--- NOTE | 2023-12-04 09:54 | PN.CDI ---
CDI
- -
CDI:
Physician Documentation Request
Admit Date: 11/23/23 19:57
Dear Doctor Shimon,
Please review the following and provide your response in the progress notes.
Clinical Indicators:
PN, 12/03
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
#...( had LBBB preop)
#...- s/p Medtronic ICD implant on 12/01/23
Please clarify the following:
Complete Heart Block is a complication of the surgery
Complete Heart Block is unexpected but is NOT a complication of the surgery
Complete Heart Block is an expected occurrence and is not a complication of surgery
Complete Heart Block is inherent to/unavoidable during the surgery and is not a complication
Other(please specify)
Use of terms such as suspected, likely, concern for, or probable (associated with a specific diagnosis that is being evaluated, monitored, or treated as if it exists) are acceptable and can be coded in the inpatient setting, when documented at the
time of discharge.
Thank you,
Erin Bishop RN BSN CCDS
CDI Specialist
please contact via [employer] texr
Please use your independent medical judgment in providing your response.
--- NOTE | 2023-12-04 09:58 | PN.CDI ---
CDI
- -
CDI:
Physician Documentation Request
Admit Date: 11/23/23 19:57
Dear Doctor Shimon,
Please review the following and provide your response in the progress notes.
Clinical Indicators:
Nephrology, PN, 12/02
#cr post op at 2.5 remains nonoliguric with approximately 1 L of urine,
#...weights stable
#on milrinone for cardiac output support but this is to be weaned
#I suspect acute kidney injury is related to prerenal stimulus from
#...compromised effective circulating volume
PN, 12/03
#-KELLIE on chronic CKD3b (cr 3.0 on 11/20, now 1.8, per family baseline Cr is 1.4)
#-Cardiogenic shock (postop CO/CI: 1.5/0.95; Preop starting CI 1.4)- requiring inotrops
Laboratory Tests
11/20/23 11/21/23 11/21/23
07:36 06:58 15:44
Creatinine 2.9 H 3.0 H 3.0 H
eGFR 16.17 15.53 15.53
11/21/23 11/22/23 11/22/23
21:39 06:50 20:15
Creatinine 2.8 H 2.8 H 2.5 H
eGFR 16.87 16.87 19.32
11/23/23 11/24/23 11/25/23
04:37 04:50 03:58
Creatinine 2.3 H 1.9 H 1.7 H
eGFR 21.36 26.86 30.70
11/27/23 11/28/23 11/29/23
05:59 04:39 01:59
Creatinine 1.8 H 1.8 H 1.7 H
eGFR 28.66 28.66 30.70
11/29/23 11/30/23 11/30/23
14:56 03:02 16:11
Creatinine 1.4 H 1.8 H 2.1 H
eGFR 28.66 23.82
12/01/23 12/01/23 12/02/23
02:17 10:11 05:31
Creatinine 2.2 H 2.4 H 2.4 H
eGFR 22.53 20.29 20.29
12/03/23 12/04/23
05:16 04:38
Creatinine 2.5 H 2.0 H
eGFR 19.32 25.26
Please clarify which of the following accurately represents the patient's renal status:
KELLIE with ATN
KELLIE with CKD 3b only
Other(please specify)
Criteria for KELLIE*
1 Increase in serum creatinine by > or = to 0.3 mg/dL (> or = to 26.5 micromol/L) within 48 hours, OR
2 Increase in serum creatinine to > or = to 1.5 times baseline, which is known or presumed to have occurred within 7 days, OR
3 Urine volume < 0.5 nL/kg/hour for six hours
Stages of Chronic Kidney Disease*
Level Description GFR
G1 Normal or High >90
G2 Mildly decreased 60-89
G3a Mildly to moderately decreased 45-59
G3b Moderately to severely decreased 30-44
G4 Severely decreased 15-29
G5 Kidney failure <15
Use of terms such as suspected, likely, concern for, or probable (associated with a specific diagnosis that is being evaluated, monitored, or treated as if it exists) are acceptable and can be coded in the inpatient setting, when documented at the
time of discharge.
Thank you,
Erin Bishop RN BSN CCDS
CDI Specialist
please contact via tiger text
Please use your independent medical judgment in providing your response.
*Source: Kidney Disease: Improving Global Outcomes (KDIGO) 2012
--- NOTE | 2023-12-04 10:19 | PN.CDI ---
CDI
- -
CDI:
Physician Documentation Request
Admit Date: 11/23/23 19:57
Dear Doctor Shimon,
Please review the following and provide your response in the progress notes.
Clinical Indicators:
Selected Entries
11/21/23
08:10
Pressure injury stage [Present on admission Coccyx] Stage 2
Physician documentation of the type and location of wounds is required for compliant documentation. Based on the above clinical findings and your assessment, please provide the following in your progress note:
Yes, Stage 2 Pressure Injury, Coccyx, POA
No, Stage 2 Pressure Injury Coccyx
Other(please specify)
1. Location of the ulcer/wound, including laterality.
2. Type (etiology) of ulcer/wound:
- Diabetic ulcer
- Arterial (ischemic) ulcer
- Traumatic wound
- Pressure (decubitus) ulcer
- Non-healing surgical wound
3. If a pressure ulcer, please also include the stage* of the ulcer:
- Stage 1 - Skin intact, non-blanchable redness
- Stage 2 - Partial thickness loss of dermis, includes intact or open blister
- Stage 3 - Full thickness tissue not including bone, tendon or muscle
- Stage 4 - Full thickness tissue loss, including exposed bone, tendon or muscle
Use of terms such as suspected, likely, concern for, or probable (associated with a specific diagnosis that is being evaluated, monitored, or treated as if it exists) are acceptable and can be coded in the inpatient setting, when documented at the
time of discharge.
Thank you,
Erin Bishop RN BSN CCDS
CDI Specialist
please contact via tiger text
Please use your independent medical judgment in providing your response.
*Source: National Pressure Ulcer Advisory Panel (NPUAP)
--- NOTE | 2023-12-04 10:25 | PN.CDI ---
CDI
- -
CDI:
Physician Documentation Request
Admit Date: 11/23/23 19:57
Dear Doctor Shimon,
Please review the following and provide your response in the progress notes.
Due to conflicting documentation, please clarify the stage of the coccyx pressure injury
Clinical Indicators:
Selected Entries
11/21/23
08:10
Pressure injury stage [Present on admission Coccyx] Stage 2
Selected Entries
12/03/23
08:45
Pressure injury stage [Present on admission Coccyx] Stage 1
Physician documentation of the type and location of wounds is required for compliant documentation. Based on the above clinical findings and your assessment, please provide the following in your progress note:
Please clarify the Stage of the Coccyx Pressure Injury, POA
Other(please specify)
1. Location of the ulcer/wound, including laterality.
2. Type (etiology) of ulcer/wound:
- Diabetic ulcer
- Arterial (ischemic) ulcer
- Traumatic wound
- Pressure (decubitus) ulcer
- Non-healing surgical wound
3. If a pressure ulcer, please also include the stage* of the ulcer:
- Stage 1 - Skin intact, non-blanchable redness
- Stage 2 - Partial thickness loss of dermis, includes intact or open blister
- Stage 3 - Full thickness tissue not including bone, tendon or muscle
- Stage 4 - Full thickness tissue loss, including exposed bone, tendon or muscle
Use of terms such as suspected, likely, concern for, or probable (associated with a specific diagnosis that is being evaluated, monitored, or treated as if it exists) are acceptable and can be coded in the inpatient setting, when documented at the
time of discharge.
Thank you,
Erin Bishop RN BSN CCDS
CDI Specialist
please contact via tiger text
Please use your independent medical judgment in providing your response.
--- NOTE | 2023-12-04 10:53 | CM ---
Chart reviewed. Patient is independent of ADLS, lives with her daughter in a 1 [address], 0 SANTOS, ambulates with a RW. PT/OT recommending Acute Rehab. Referral sent to [facility]. Plan is for the patient to go to acute rehab. CM to follow
[2023-12-04 11:46] LABS: Glucose - Point of Care 286 mg/dl (70-99)
[2023-12-04] MEDS: NOVOLOG FLEXPEN-MODERATE RESISTANCE 300 UNITS SC (11:51)
--- NOTE | 2023-12-04 12:00 | PTCARENOTE ---
VSS, Harshil d/c'ed, margarette d/c'ed, pt 2 person assist OOB to chair. nursing assessment unchanged from prior.
--- NOTE | 2023-12-04 12:23 | PN.DE.MGMTRT ---
Insulin Management
- -
12/04/2023: Diabetes Management F/U:
78 year old female with PMH: CAD, s/p 7 stents in 2019, ICM EF 40%, chronic systolic HF, T2DM, HTN, HLD, and CKD3 with recent hospitalization at [place] with HTN emergency, pulm edema, requiring intubation and diagnosis of possible Takotsubo CM.
She did not undergo cath, was discharged home, and then presented to with weakness on 11/19. She was found to have an KELLIE and mildly elevated troponin.
Prior to admission, patient was taking metformin 500 mg BID. A1C is 6.9% Cr 1.8, eGFR 25.26. Patient is off the unit for pacemaker, family at bedside.
Pt awake, A/O x3, sitting up in chair, offers no complaints, Family-2 Dtrs at bedside, able to discuss diabetes mgt.
POD #5 s/p CABG x 4. Cr 2.2-->2.5-->2.0 today, eGFR 25.26.
Transitioned off critical care glycemic protocol insulin infusion on 11/30 to SQ Insulin- Lantus 10 units @ HS and moderate corrective with meals.
Unable to resume oral meds at transition time due to KELLIE.
Received Lantus 10 units @ HS, fasting glucose 119 this AM. Will cont same Lantus dose
Premeal glucose range 227 to 286 since transition off drip, requiring 3 units of moderate corrective insulin
Will start NovoLog 5 units AC, 1st dose NOW.
Will consider resuming oral meds if Cr and eGFR improve.
Diabetes plan of care discussed with pt's family and pt's Nurse.
Diabetes History
- -
Type of Diabetes: 2
Pre-Admission Diabetes Regimen
12/04/23
04:38
Creatinine 2.0 H
Lab Results
Hemoglobin A1c 6.9 % (4.0-5.6) H 11/21/23 06:58
Insulin Pump Settings
IP Diabetes Regimen
12/03/23 12/03/23 12/03/23
13:21 17:14 22:08
Glucose
POC Glucose 227 H 229 H 203 H
12/04/23 12/04/23 12/04/23
04:38 07:39 11:45
Glucose 119 H
POC Glucose 132 H 286 H
Meal type: Breakfast
Meal type: Dinner
Meal type: Lunch
Amount consumed: 50%
Amount consumed: 100%
Amount consumed: 100%
Patient Education
[2023-12-04] MEDS: LIDOCAINE 4% PATCH TOPICAL (12:53)
[2023-12-04] MEDS: NOVOLOG FLEXPEN 5 UNITS SC ×2 (13:01→17:58)
--- NOTE | 2023-12-04 13:32 | W.PN.NEPH.PH ---
Today's Communication / Plan
-
- hold diuretics
Assessment/Plan
-
Assessment:
NSTEMI-MVD- s/p CABG x4 11/29/23
KELLIE on ?CKD
HyperK
Constipation
Weakness
C/f PNA
Plan:
s/p CABG, SUPRIYA EF 35-40%
Cr peak at 2.5, down to 2.0 now. 800cc of urine recorded thus far, weights stable
Hemodynamically stable today
metabolic acidosis is resolved
I suspect acute kidney injury is related to prerenal stimulus from compromised effective circulating volume leading to ATN
hold off on diuretics today
patient with hypernatremia on labs, please liberalize free water intake
d/w nursing and family at bedside
-
-
Date of Service: December 04, 2023
CC / HPI / ROS
-
Chief Complaint:
KELLIE
History of Present Illness:
Cr 2.0, peak 2.5, CABG x4 11/28
Hemodynamically improved, off milrinone
hgb at 9.1, s/p blood transfusions
Status post pacemaker placement for heart block on 12-22
Review of Systems:
resting comfortable today
Chest tube
Jones cath: non oliguric
No fever
Labs
-
Labs:
WBC 10.6 10^3/uL (4.8-10.8) 12/04/23 04:38
RBC 2.98 10^6/uL (4.20-5.40) L 12/04/23 04:38
Hgb 9.1 g/dL (12.0-16.0) L 12/04/23 04:38
Hct 27.0 % (37.0-47.0) L 12/04/23 04:38
Plt Count 148 10^3/uL (130-400) 12/04/23 04:38
Sodium 146 mmol/L (135-145) H 12/04/23 04:38
Potassium 3.5 mmol/L (3.5-5.1) 12/04/23 04:38
Chloride 111 mmol/L (98-107) H 12/04/23 04:38
Carbon Dioxide 29 mmol/L (22-30) 12/04/23 04:38
BUN 71 mg/dl (7-17) H 12/04/23 04:38
Creatinine 2.0 mg/dL (0.6-1.0) H 12/04/23 04:38
eGFR 25.26 12/04/23 04:38
Glucose 119 mg/dl (70-99) H 12/04/23 04:38
Calcium 9.3 mg/dl (8.4-10.2) 12/04/23 04:38
Qlj-B-Ptadszdvewu Pept 90599 pg/ml 11/24/23 04:50
Albumin 3.1 g/dl (3.5-5.0) L 12/03/23 05:16
Physical Exam
-
Vital Signs:
Vital Signs
Temp Pulse Resp BP Pulse Ox
98.8 F 60 16 145/68 95
12/04/23 11:25 12/04/23 11:25 12/04/23 11:25 12/04/23 11:22 12/04/23 11:28
Cardiovascular:: Regular rate and rhythm
Respiratory:: Bilateral: Coarse
Lung Excursion:: Normal
Abdomen:: Nontender and Soft
Bowel Sounds:: Normal
Extremity Edema:: +1: Bilateral:
Jones Catheter: Yes
[2023-12-04] MEDS: NSS IV (13:41)
--- NOTE | 2023-12-04 14:38 | PTCARENOTE ---
VSS, pt back to bed X2 assist, pt resting comfortably in bed, assessment unchanged from prior.
[2023-12-04] MEDS: APRESOLINE 5 MG PO ×3 (15:33→22:29)
[2023-12-04 17:40] LABS: Glucose - Point of Care 194 mg/dl (70-99)
[2023-12-04] MEDS: NOVOLOG FLEXPEN-LOW RESISTANCE 1 UNITS SC (17:59)
--- NOTE | 2023-12-04 20:30 | PTCARENOTE ---
Patient received resting in bed. Family at bedside. Patient drowsy. Patient A+A+Ox3 during periods of care. Generalized weakness. Left upper and lower extremities weaker strength than right upper and lower extremities. Patient able to move all
extremities. Assistance with repositioning. No s/s of respiratory distress. No c/o SOB. Room air. SaO2 97%. No adventitious breath sounds noted. AICD Pacer. high risk case manager: Sinus Rhythm with BBC. Heart rate 60-70's. No c/o chest pain,
pressure or discomfort. Normoactive bowel sounds. No BM. No c/o nausea. No vomiting. Voided on bedpan. Pure Wick female external urinary device placed for HS. Patient with no c/o back or flank pain. Positive pulses via Doppler. Positive,
palpable radial pulses. Sternal Aquacell dressing intact. 4 chest tube sutures intact - Open to air. Right groin puncture site. Right knee incision - Intact - Open to air. Right lower leg with incision - Intact - Distal portion with small
dressing - No bleeding noted. Left anterior wall s/p Pacer placement - Dressing intact. Protective foam dressing to sacrum. Reddened, ecchymotic area to outer middle ear region ([place] region) - Small protective foam placed. Aspiration
precautions. Assessment as documented.
[2023-12-04 22:14] LABS: Glucose - Point of Care 147 mg/dl (70-99)
[2023-12-04] MEDS: LANTUS 0.1 UNITS SC (22:30)
--- NOTE | 2023-12-04 23:00 | PTCARENOTE ---
Patient sleeping without difficulty. Family at bedside. Patient with Pure Wick female external urinary device intact - Yellow urine in suction container. Patient wearing Pneumatic Compression Sleeves to bilateral lower extremities. Patient
wearing bilateral EHOB TruVue Heel Protector Wedge Boots. Assessment as documented.
[2023-12-05] VITALS (10 sets, daily range): BP systolic 163–171; BP diastolic 77–96; PULSE 69; O2SAT 95; BMI 28.4
[2023-12-05] MEDS: APRESOLINE 5 MG PO ×2 (05:00→07:53)
[2023-12-05] MEDS: TYLENOL 1000 MG PO ×2 (05:01→21:42)
--- NOTE | 2023-12-05 06:04 | W.PN.CT ---
Today's Communication / Plan
-
-pod #6
-no issues overnight
-pt is more interactive, A&O x4, was OOB in a chair on 12/03
-appreciate speech/PT/OT input
-remains in nsr 60s (s/p icd implant 12/01/23)
-weaned off O2 - pOx 97% on RA
-Cr improving -1.8 today (2.0 on 12/03, peak 2.5 on 12/02, and 1.7-1.8 preop)
-stable Hg- 9.2/26.6 today
-Jones dcd 12/03 (UO 400+/700+ in 12/24 hrs)
-encourage IS (500-700 so far) and acapella
-small R pleural effusion/atelectasis- follow
-hypertensive- started on Hydralazine, increased Coreg to 6.25 bid (was on 12.5 bid preop)
-current meds (ASA, Plavix, Coreg, Crestor, Amio, Protonix, ISS/Lantus). Will hold diuretic per Nephrology
-Heparin sq for DVT prophylaxis
-continue PT/OT. Will need inpatient rehab
-appreciate everyone's input
Assessment / Plan
-
Assessment:
-Severe 3v CAD- s/p CABG x 4 (HINDS to LAD, GSV to D2, GSV to OM1, GSV to RPDA) on 11/29/[address] Robins, pod #6
-Intraop SUPRIYA: LVEF 30-35%, global hypokinesis w/ minor improvement in lateral wall, mild MR, mild TR, no AI/, RV OK
-[place]
-NSTEMI (peak trop 7.36)
-Hx of CAD S/P PCI with prior 7 stents, most recent stent in 2019
-Plavix washout, last dose on 11/23 @ 0832
-Acute on chronic ICM (LVEF 30% per TTE on 11/22)
-Systolic CHF with recent hospitalization at [facility] ([place]) w/ HTN emergency, pulmonary edema requiring intubation - ? Takotsubo CM
-Acute hypoxic respiratory failure, evolved after admission, now resolved
-Mild-moderate MR
-Mildly dilated left atrium
-LBBB preop
-Tachycardia
-Hx of Takotsubo syndrome
-KELLIE on chronic CKD3b (cr 3.0 on 11/20, now 1.8, per family baseline Cr is 1.4)
-Chronic Anemia
-HTN
-HLD
-T2DM (A1C 6.9)
-LETTY lung nodules (7.1 mm, incidental findings from chest CT 11/23)
-Thyroid nodule (1.4 cm, incidental findings from chest CT 11/23)
-Mild right scoliosis
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
-Acute postop blood loss anemia on chronic anemia - s/p 1 pRBC preop 11/27, 3 pRBCs and 1 unit platelet intraop, 1pRBC and 2 FFPs postop 11/28+ 1pRBC on 11/29+ 1pRBC on 12/01
-Acute postop coagulopathy
-Cardiogenic shock (postop CO/CI: 1.5/0.95; Preop starting CI 1.4)- requiring inotrops
-Acute postop hypovolemia with subsequent hypervolemia
-Acute postop atelectasis
-Acute postop long Qt
-KELLIE on CKD (Jones dcd 12/03)
-Acute postop lethargy- responds to voice, holding narcotics-improved, now A&O x4
-Coccyx pressure injury, stage 1
Discussed patient care with: Nursing and Care Team
Subjective
Procedure
- s/p CABG x 4 (HINDS to LAD, GSV to D2, GSV to OM1, GSV to RPDA) on 11/29/[address] Robins
More lethargic today. Wakes up and looks at me and then falls back asleep. Does not answer questions.
Was able to take in small amounts by mouth yesterday when working with speech
-
Date of Service: December 04, 2023
Objective Data
-
Lab Results
12/04/23 04:38
12/04/23 04:38
PT 18.7 Sec (11.4-14.6) H 11/29/23 14:56
INR 1.55 11/29/23 14:56
APTT 34.9 Sec (23.4-35.0) 11/29/23 14:56
Vital Signs
Vital Signs
Temp Pulse Resp BP Pulse Ox
99.4 F 70 16 163/84 97
12/04/23 20:00 12/04/23 22:31 12/04/23 20:00 12/04/23 22:31 12/04/23 20:00
CT Intake/Output/Weight
12/04/23 12/04/23 12/05/23
06:59 18:59 06:59
Intake Total 680 / 1059.2 600 / 840 240 / 840
Output Total 490 / 1430 300 / 350 50 / 350
Balance 190 / -370.8 300 / 490 190 / 490
SaO2: 97
Physical Exam
-
General: Awake and AOx3
Cardiovascular: Regular rate & rhythm, No Murmurs (increased JVP) and Rub
Respiratory: Decreased Breath Sounds
Sternum: Stable
Incision: Clean, Dry and Dressing Intact
Extremities: Other (trace edema hands b/l, no leg edema b/l)
Data Reviewed
-
Lab Results: Results Reviewed
Medications: Active Meds Reviewed
Chest X-Ray: Report Reviewed and Image Reviewed
ECG: Report Reviewed and Image Reviewed
[2023-12-05 06:14] LABS: Blood Urea Nitrogen 66 mg/dl (7-17); Calcium 9.4 mg/dl (8.4-10.2); Carbon Dioxide 28 mmol/L (22-30); Chloride 110 mmol/L (98-107); Estimated Creatinine Clearance 23 ml/min; Glucose 120 mg/dl (70-99); Sodium 144 mmol/L (135-145); eGFR 28.66
[2023-12-05 06:15] LABS: Hematocrit 26.6 % (37.0-47.0); Hemoglobin 9.2 g/dL (12.0-16.0); Mean Corp Hgb Conc. 34.6 g/dL (33.0-37.0); Mean Corpuscular Hgb 31.1 pg (27.0-31.0); Mean Corpuscular Volume 89.9 fL (81.0-99.0); Mean Platelet Volume 9.8 fL (7.4-10.4); Platelet Count 190 10^3/uL (130-400); Red Blood Cell Count 2.96 10^6/uL (4.20-5.40); Red Cell Dist. Width 15.2 % (11.5-14.5)
--- NOTE | 2023-12-05 06:15 | PTCARENOTE ---
Patient A+A+Ox3. No neurological deficits noted. AM lab work collected and sent. BP 165/87 (111) - PA made aware - Hydralazine 5mg PO given at 0500. Patient given CHG bath and linens changed. Patient's sacral foam changed - PA at bedside - Skin
protectant ointment to buttocks. New Pure Wick Female External Urinary Device placed. Patient voided 350 ml yellow urine. Family at bedside. Bed scale weight 68.2 kg. Assessment/Interventions as documented.
[2023-12-05 07:41] LABS: Glucose - Point of Care 109 mg/dl (70-99)
[2023-12-05] MEDS: APRESOLINE PO (07:41)
[2023-12-05] MEDS: NOVOLOG FLEXPEN-LOW RESISTANCE SC ×2 (07:41→17:59)
[2023-12-05] MEDS: NOVOLOG FLEXPEN 5 UNITS SC ×3 (07:52→17:59)
[2023-12-05] MEDS: HEPARIN 5000 UNITS SC ×2 (07:52→20:18)
[2023-12-05] MEDS: SENOKOT-S 1 TABLET PO ×2 (07:53→20:19)
[2023-12-05] MEDS: PROTONIX 40 MG PO (07:53)
[2023-12-05] MEDS: PACERONE 200 MG PO ×3 (07:53→21:42)
[2023-12-05] MEDS: VITAMIN C 250 MG PO (07:53)
[2023-12-05] MEDS: COREG 6.25 MG PO ×2 (07:54→20:18)
[2023-12-05] MEDS: LOW STRENGTH ASPIRIN 81 MG PO (07:54)
[2023-12-05] MEDS: PLAVIX 75 MG PO (07:54)
[2023-12-05] MEDS: CRESTOR 20 MG PO (07:54)
--- NOTE | 2023-12-05 08:25 | PN.DE.MGMTRT ---
Insulin Management
- -
12/05/2023: Diabetes Management F/U:
78 year old female with PMH: CAD, s/p 7 stents in 2019, ICM EF 40%, chronic systolic HF, T2DM, HTN, HLD, and CKD3 with recent hospitalization at [place] with HTN emergency, pulm edema, requiring intubation and diagnosis of possible Takotsubo CM.
She did not undergo cath, was discharged home, and then presented to with weakness on 11/19. She was found to have an KELLIE and mildly elevated troponin.
Prior to admission, patient was taking metformin 500 mg BID. A1C is 6.9% Cr 1.8, eGFR 25.26. Patient is off the unit for pacemaker, family at bedside.
Pt awake, A/O x3, sitting up in chair, offers no complaints, Family-2 Dtrs at bedside, able to discuss diabetes mgt.
POD # 6 s/p CABG x 4. Cr 2.2-->2.5-->2.0-->1.8 today, eGFR 28.66
Transitioned off critical care glycemic protocol insulin infusion on 11/30 to SQ Insulin- Lantus 10 units @ HS and moderate corrective with meals.
Unable to resume oral meds at transition time due to KELLIE.
Glucose stable and in range, fasting 120 this AM. Premeal improved with initiation of AC NovoLog, appetite remains guarded, added Glucerna TID
Will make no changes to current regimen: NovoLog 5 units AC, Lantus 10 units @ HS and low corrective with meals
Will consider resuming oral meds if Cr and eGFR improve.
Diabetes History
- -
Type of Diabetes: 2
Pre-Admission Diabetes Regimen
12/05/23
05:27
Creatinine 1.8 H
Lab Results
Hemoglobin A1c 6.9 % (4.0-5.6) H 11/21/23 06:58
Insulin Pump Settings
IP Diabetes Regimen
12/04/23 12/04/23 12/04/23
11:45 17:39 22:12
Glucose
POC Glucose 286 H 194 H 147 H
12/05/23 12/05/23
05:27 07:39
Glucose 120 H
POC Glucose 109 H
Meal type: Dinner
Meal type: Lunch
Meal type: Breakfast
Amount consumed: 55%
Amount consumed: 50%
Amount consumed: 50%
Patient Education
--- NOTE | 2023-12-05 08:48 | W.PN.CD ---
Today's Communication / Plan
-
Increase activity as tolerated
When Cr gets to 1.5 would like to resume ACEI due to LV dysfunction
Impression / Plan
-
BACKGROUND: 78F with CAD, last stent 2019, ICM EF 40%, chronic systolic HF, NIDDM, HTN, HLD, and CKD3 with recent hospitalization at [place] with HTN emergency, pulm edema, requiring intubation and diagnosis of possible Takotsubo CM presents with
weakness. She did not undergo cath. She was discharged home, and then presented to with weakness on 11/19. She was found to have an KELLIE and a mildly elevated troponin. Echo 11/20/23 showed EF 35-40%, global HK, mild/mod MR, nl RV, mild TR, PASP 35.
Then, on evening of 11/21, had episode of chest pain, which appears to be in setting of NSTEMI. She was reloaded with ASA, continued on Plavix; and started on heparin and nitro drips.
CAD/NSTEMI
-Status-post CABG x4 (HINDS to LAD, GSV to D2, GSV to OM1, GSV to RPDA) on 11/29/[address] Robins, pod #6.
-Continues to improve
-Previous PCI to RCA, LAD, and Circ in past; last 2019.
-On ASA
Complete heart block status-post CABG:
-Remains stable status-post ICD implantation.
-Continue traffic monitor specialist.
Altered mental status:
- Resolved
- Head CT - negative for bleed
Acute HFrEF/ICM EF (30%):
-Coreg resumed
-Would hold off on restarting ACEI until Cr back to baseline of approx 1.5. Can use prn hydralazine for BP control as needed
-Continue supportive care.
KELLIE on CKD3b
-Cr peaked at 2.5 post CABG now falling and 1.8. Baseline approx 1.5
-Continue to monitor; Nephrology following. Would diurese today as wt still 4kg up vs preop
HTN
-Coreg resumed- would increase to 6.25 bid (home dose was 12.5 bid)
-Has device so no worry about bradycardia
-prn hydralazine appropriate now. We want to resume ACEI once Cr gets back to baseline
Type II DM
Anemia
-Stable cfgvkg-fzwo-zlruwjvmqjv.
Fever
-CXR without infiltrate (8-4)
-WBC slightly up at 13k
-Neither ICD pocket or SVG harvest sites or sternum show signs of infection at present
-Tm 99.4 over past 24 hrs
Physical Exam
Vital Signs/Labs
Vital Signs
Temp Pulse Resp BP Pulse Ox
98.4 F 70 17 171/96 95
12/05/23 07:42 12/05/23 07:54 12/05/23 07:42 12/05/23 07:54 12/05/23 07:42
12/04/23 12/05/23 12/06/23
06:59 06:59 06:59
Actual Weight 145 lb 15.136 oz 150 lb 5.684 oz
12/05/23 05:27
12/05/23 05:27
PT 18.7 Sec (11.4-14.6) H 11/29/23 14:56
INR 1.55 11/29/23 14:56
APTT 34.9 Sec (23.4-35.0) 11/29/23 14:56
Magnesium 2.3 mg/dl (1.6-2.3) 12/03/23 05:16
Triglycerides 113 mg/dl (10-149) 11/24/23 04:50
LDL Cholesterol, Calc 63 mg/dl 11/24/23 04:50
VLDL Cholesterol, Calc 22 mg/dl (0-30) 11/24/23 04:50
HDL Cholesterol 44 mg/dl 11/24/23 04:50
11/20/23 11/22/23 11/24/23
07:36 20:15 04:50
Hia-U-Wouhlbhoybn Pept 1140 1950 [id number]
Physical Exam
Constitutional: No acute distress and Comfortable
Cardiovascular: Rhythm & rate is regular and S1S2 is normal
Respiratory: Respiratory effort normal, Lungs clear to auscul., Wheeze Absent and Crackles Absent
GI: Soft and Non tender
Neuro/Psych: AO x 3 and Motor deficits absent
Data Reviewed
-
Date of Service: December 05, 2023
[2023-12-05] MEDS: LIDOCAINE 4% PATCH TOPICAL (09:15)
--- NOTE | 2023-12-05 09:43 | PTCARENOTE ---
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 Daughter at bedside. NSR via cm, SaO2 @ 95% on RA. Generalized weakness t/o, L>R (baseline). LCW ppm dressing cdi, all procedural sites stable. Palp radial, DP via
doppler. Patient assisted oob to chair w/heavy to complete assist. Aspiration precautions maintained. Patient and daughter updated to plan of care for the day, in agreement. See work list for full assessment and interventions performed.
--- NOTE | 2023-12-05 10:33 | CM ---
Chart reviewed. Patient OOB sitting in the chair. Patient is independent of ADLS, lives with her daughter in a [address], 0 [address], ambulates with a RW. PT recommending Acute Rehab, patient and family agree. Waiting for Psychiatry consult. Plan is
for the patient to go to Acute Rehab when medically stable. CM to follow
[2023-12-05] MEDS: LASIX 40 MG IV (11:37)
--- NOTE | 2023-12-05 11:48 | PTCARENOTE ---
VS obtained, assessment stable. Remains oob in chair, will order lunch soon. Daughter at bedside.
--- NOTE | 2023-12-05 11:58 | W.PN.NEPH.PH ---
Today's Communication / Plan
-
- no diuretics
Assessment/Plan
-
Assessment:
NSTEMI-MVD- s/p CABG x4 11/29/23
KELLIE on ?CKD
HyperK
Constipation
Weakness
C/f PNA
Plan:
s/p CABG, SUPRIYA EF 35-40%
Cr peak at 2.5, down to 1.8 now. 700cc of urine recorded thus far, weights stable
Hemodynamically stable today
metabolic acidosis is resolved
I suspect acute kidney injury is related to prerenal stimulus from compromised effective circulating volume leading to ATN
hold off on diuretics today
hypernatremia now resolved
d/w nursing and family at bedside
-
-
Date of Service: December 05, 2023
CC / HPI / ROS
-
Chief Complaint:
KELLIE
History of Present Illness:
Cr 1.8, peak 2.5, CABG x4 11/28
Hemodynamically improved, off milrinone
hgb at 9.2, s/p blood transfusions
Status post pacemaker placement for heart block on 12-22
Review of Systems:
resting comfortable today
Chest tube
Jones cath: non oliguric
No fever
Labs
-
Labs:
WBC 13.0 10^3/uL (4.8-10.8) H 12/05/23 05:27
RBC 2.96 10^6/uL (4.20-5.40) L 12/05/23 05:27
Hgb 9.2 g/dL (12.0-16.0) L 12/05/23 05:27
Hct 26.6 % (37.0-47.0) L 12/05/23 05:27
Plt Count 190 10^3/uL (130-400) D 12/05/23 05:27
Sodium 144 mmol/L (135-145) 12/05/23 05:27
Potassium 4.0 mmol/L (3.5-5.1) 12/05/23 05:27
Chloride 110 mmol/L (98-107) H 12/05/23 05:27
Carbon Dioxide 28 mmol/L (22-30) 12/05/23 05:27
BUN 66 mg/dl (7-17) H 12/05/23 05:27
Creatinine 1.8 mg/dL (0.6-1.0) H 12/05/23 05:27
eGFR 28.66 12/05/23 05:27
Glucose 120 mg/dl (70-99) H 12/05/23 05:27
Calcium 9.4 mg/dl (8.4-10.2) 12/05/23 05:27
Reg-K-Pfgpjkrdgfq Pept 67427 pg/ml 11/24/23 04:50
Albumin 3.1 g/dl (3.5-5.0) L 12/03/23 05:16
Physical Exam
-
Vital Signs:
Vital Signs
Temp Pulse Resp BP Pulse Ox
98.7 F 67 16 163/86 96
12/05/23 11:42 12/05/23 11:42 12/05/23 11:42 12/05/23 11:37 12/05/23 11:42
Cardiovascular:: Regular rate and rhythm
Respiratory:: Bilateral: CTA
Lung Excursion:: Normal
Abdomen:: Nontender and Soft
Bowel Sounds:: Normal
Extremity Edema:: None: Bilateral:
Jones Catheter: No
[2023-12-05] MEDS: NOVOLOG FLEXPEN-LOW RESISTANCE 1 UNITS SC (12:12)
[2023-12-05 12:14] LABS: Glucose - Point of Care 157 mg/dl (70-99)
[2023-12-05] MEDS: NSS IV (12:14)
--- NOTE | 2023-12-05 12:54 | PTCARENOTE ---
Patient assisted back to bed for nap w/max assist. Purewick placed per patient request. Daughter at bedside.
--- NOTE | 2023-12-05 12:55 | CON.MD ---
Documented by User: Chantel Curry PA-C 12/05/23 17:10
Consultation - Medical
-
Referring Provider: Dr. Shimon Courtney
Chief Complaint: Debility s/p CABG
History of Present Illness: This is a 78 year old Female with PMH of ( CAD, last stent 2019, ICM EF 40%, chronic systolic HF, NIDDM, HTN, HLD, and CKD3) with recent hospitalization at [facility] with HTN emergency, pulmonary edema, requiring
intubation and diagnosis of possible Takotsubo Cardiomyopathy who presented with weakness. She did not undergo cath. She was discharged home, and then presented to with weakness on 11/19. She was found to have an KELLIE and a mildly elevated
troponin. Echo 11/20/23 showed EF 35-40%, global HK, mild/mod MR, nl RV, mild TR, PASP 35. Then, on evening of 11/21, had episode of chest pain, which appears to be in setting of NSTEMI. She was reloaded with ASA, continued on Plavix; and started on
heparin and nitro drips. She underwent left cardiac catherization on 11/23 whic revealed triple vessel CAD. She underwent 4 vessels CABG on 11/29/2023 with complete heart block status-post CABG: Post ICD implantation on 12/01/2003.
Past Medical History: CAD, last stent 2018, ICM EF 40%, chronic systolic HF, NIDDM, HTN, HLD, and CKD3
Procedure History: CABG x 4-(11/28)
Family History:
Social History:
Functional Level Premorbidly: Independent with all activities
Functional Level Currently: functional mobility- max assist of 2, 3 trial needing knee blocking each time, transfer-max assist
Tobacco: Denies
Alcohol: Denies
Drug use: Denies
Lives with: family
24-hour assistance available:
Number of floors: 1
# steps to enter: 0
# steps to second floor: 0
Potential First floor set up:yes
Driving: yes
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
�
Allergies:
Allergy/AdvReac Type Severity Reaction Status Date / Time
No Known Allergies Allergy Unverified 11/20/23 06:21
Review of Systems:
Constitutional: (x) Normal _
Eye: (x) Normal _
Ear/Nose/Throat: (x) Normal _
Respiratory: (x) Normal _
Cardiovascular: (x) s/p cabg
Gastrointestinal: (x) Normal _
Genitourinary: (x) kellie
Musculoskeletal: (x) Normal _
Integumentary: (x) Normal _
Neurologic: (x) Normal _
Psychiatric: (x) Normal _
Endocrine: (x) Normal _
Hematologic/Lymphatic: (x) Normal _
Allergic/Immunologic: (x) Normal _
Medications:
Active Current Visit Medication List
Category Date Time Status
0.9% Sodium Chloride 500 ml [Nss] 500 ml Med 11/29/23 14:06 Active
IV CORDIS
Acetaminophen [Tylenol/Feverall] Med 11/29/23 14:06 Active
650 mg RECTAL Q4HPRN PRN
Acetaminophen [Tylenol] Med 11/29/23 14:06 Active
1,000 mg PO TID@0600,1400,2200
Acetaminophen [Tylenol] Med 11/29/23 14:06 Active
650 mg PO Q4HPRN PRN
Albuterol [ProAIR HFA INHALER] Med 11/29/23 14:06 Active
2 puff INH R Q4HPRN PRN
Amiodarone [Pacerone] Med 11/29/23 16:00 Active
200 mg PO TID
Ascorbic Acid [Vitamin C] Med 12/01/23 08:00 Active
250 mg PO DAILY
Aspirin Med 11/30/23 08:00 Active
300 mg RECTAL DAILYPRN PRN
Aspirin Chewable [Low Strength Aspirin] Med 11/30/23 08:00 Active
81 mg PO DAILY
Bisacodyl [Dulcolax] Med 11/29/23 14:06 Active
10 mg RECTAL DAILYPRN PRN
Carvedilol [Coreg] Med 12/05/23 06:36 Active
6.25 mg PO BID
Clopidogrel Bisulfate [Plavix] Med 11/30/23 08:00 Active
75 mg PO DAILY
Dextrose 50%-Water [Dextrose 50% Syringe] Med 12/02/23 14:23 Active
12.5 grams IV [id number] PRN
Docusate W/Senna [Senokot-S] Med 11/29/23 20:00 Active
1 tablet PO Q12
Flush (0.9% Sodium Chloride) [Flush (Nss)] Med 11/29/23 15:00 Active
See Dose Instructions IV PER PROTOCOL
Glucagon [GlucaGen] Med 12/02/23 14:23 Active
1 mg IM PRN PRN
Heparin Med 12/01/23 20:00 Active
5,000 units SC Q12
HydrALAZINE [Apresoline] Med 12/05/23 06:35 Active
10 mg PO TID
Insulin Aspart Corrective Low [Novolog Flexpen-Low Med 12/04/23 16:30 Active
Resistance]
See Protocol SC AC
Insulin Aspart Pen [Novolog Flexpen] Med 12/04/23 16:30 Active
5 units SC AC
Insulin Glargine Lantus [Lantus] 10 units Med 12/03/23 22:00 Active
Subcutaneous Insulin Syringe [Syringe-Insulin] 0 unit
SC HS
Lidocaine [Lidocaine 4% Patch] Med 11/30/23 08:00 Active
1 patch TOPICAL DAILY
Magnesium Hydroxide [Milk of Magnesia] Med 11/29/23 14:06 Active
30 ml PO BIDPRN PRN
Magnesium Oxide Med 11/30/23 08:00 Hold
500 mg PO BID
Ondansetron Injectable [Zofran] Med 11/29/23 14:06 Active
4 mg IV Q8HPRN PRN
Pantoprazole [Protonix] Med 11/30/23 08:00 Active
40 mg PO DAILY
Remove Patch [Remove Lidocaine Patch] Med 11/30/23 20:00 Active
See Dose Instructions REMOVE DAILY@1999
Rosuvastatin Calcium [Crestor] Med 12/02/23 08:00 Active
20 mg PO DAILY
Vitals:
Temp Pulse Resp BP Pulse Ox
98.7 F 71 16 163/86 96
12/05/23 11:42 12/05/23 12:30 12/05/23 11:42 12/05/23 11:37 12/05/23 11:42
Height 5 ft 1 in
Actual Weight 68.2 kg
Body Mass Index (BMI) 28.4
Physical Exam:
General Appearance/Observation: Well-developed, well-nourished individual in no apparent distress.
Pain/Comfort Assessment: Denies
Mood/Affect: Appropriate, sleepy
Integumentary/Operative Site:sternal incision
�� Pressure Ulcer Evaluation: absent over heels.
��
�� Other Type of Wound: incision - right inner leg, ICD on left upper chest with dressing
�
Eyes: Conjunctiva/Lids: normal ��� Pupils: pupils equal round and reactive to light and Accommodation
Ears/Nose/Throat: oral mucosa moist,� throat clear.������������ Lips/Teeth/Gums: normal
Neck: No muscle spasm or tenderness
Cardiovascular: Heart: regular, no murmur
Pulses: dorsalis pedis 1+ bilaterally
Respiratory: Respiratory Effort/Chest Expansion: normal ������� Auscultation: Clear to auscultation bilaterally
Gastrointestinal: abdomen not tender, no distension, normal abdominal bowel sounds
Genitourinary: No Jones
Extremities: Edema: None Cyanosis: None Trophic changes: None
Neurology Exam:
Orientation: Alert, Oriented to self, Time, Place
Memory: Intact for immediate medical concerns
Higher cortical function
Repetition:NT
Comprehension: Intact
Two step command: Intact
Naming: Intact
Cranial Nerves:
�� CNII: Pupillary light reflex: Intact��� Visual Field: Intact
�� CN III, IV, : Extraocular muscles: Intact
�� CN V: Facial Sensation at Forehead: Intact, Maxilla: Intact, Mandible: Intact
�� CN VII: Facial movement: Symmetric
�� CN VIII: Hearing: Normal
�� CN IX/X: Speech & swallow: Normal, Position of Uvula: Midline
�� CN XI: Shoulder shrug: Symmetric
�� CN XII: Tongue protrusion: Midline
Sensory:
�� Light touch: Intact in bilateral upper and lower extremities
��
Reflexes:
�� Biceps: absent bilaterally
�� Brachioradialis: absent bilaterally
�� Triceps: absent+ bilaterally
�� Patellar: 1+ bilaterally
�� Achilles: 1+ bilaterally
�� Babinski: no response bilaterally
�� Clonus: None
�� Isabella: Negative bilaterally
Cerebellar: Dysmetria/Ataxia: NT
Musculoskeletal:
Motor: (Manual muscle scale 0-5)
Muscle SA EF WE EE FF FA HF KE DF EHL PF
Right� 5 5 5 5 5 5 5 5 5 5 5
Left 5 5 5 5 5 5 5 5 5 5 5
Tone: Normal in all extremities
Range of Motion: Passively within normal limits, did not fully test arms due to recent surgery
Lab Results
Labs
WBC 13.0 10^3/uL (4.8-10.8) H 12/05/23 05:27
RBC 2.96 10^6/uL (4.20-5.40) L 12/05/23 05:27
Hgb 9.2 g/dL (12.0-16.0) L 12/05/23 05:27
Hct 26.6 % (37.0-47.0) L 12/05/23 05:27
MCV 89.9 fL (81.0-99.0) 12/05/23 05:27
MCH 31.1 pg (27.0-31.0) H 12/05/23 05:27
MCHC 34.6 g/dL (33.0-37.0) 12/05/23 05:27
RDW 15.2 % (11.5-14.5) H 12/05/23 05:27
Plt Count 190 10^3/uL (130-400) D 12/05/23 05:27
MPV 9.8 fL (7.4-10.4) 12/05/23 05:27
Abs Immat Gran (auto) Cancelled 11/29/23 06:00
Absolute Neuts (auto) Cancelled 11/29/23 06:00
Absolute Lymphs (auto) Cancelled 11/29/23 06:00
Absolute Monos (auto) Cancelled 11/29/23 06:00
Absolute Eos (auto) Cancelled 11/29/23 06:00
Absolute Basos (auto) Cancelled 11/29/23 06:00
CBC Comment Cancelled 11/29/23 06:00
Immature Gran % Cancelled 11/29/23 06:00
Neutrophils % Cancelled 11/29/23 06:00
Lymphocytes % Cancelled 11/29/23 06:00
Monocytes % Cancelled 11/29/23 06:00
Eosinophils % Cancelled 11/29/23 06:00
Basophils % Cancelled 11/29/23 06:00
Nucleated RBC % Cancelled 11/29/23 06:00
Retic Count 1.6 % (0.4-2.8) 11/21/23 06:58
PT 18.7 Sec (11.4-14.6) H 11/29/23 14:56
INR 1.55 11/29/23 14:56
APTT 34.9 Sec (23.4-35.0) 11/29/23 14:56
Fibrinogen Cancelled 11/22/23 21:25
Fibrinogen Cancelled 11/22/23 21:25
D-Dimer 7.90 ug/mlFEU (0.00-0.50) H 11/22/23 20:15
pH 7.34 (7.35-7.45) L 12/03/23 09:34
pCO2 35 mmHg (32-35) 12/03/23 09:34
pO2 112 mmHg (83-108) H 12/03/23 09:34
HCO3 18.9 mmol/L (21-28) L 12/03/23 09:34
Base Excess -6.2 mmol/L 12/03/23 09:34
ABG O2 Sat (Measured) 99.2 % (94-98) H 12/03/23 09:34
POC ABG O2 Sat (Calc) 100.0 5 (92-96) H 11/29/23 13:14
VBG pH 7.41 (7.32-7.43) 11/21/23 11:58
VBG pCO2 40 mmHg (35-48) 11/21/23 11:58
VBG pO2 85 mmHg (30-50) H 11/21/23 11:58
VBG HCO3 25.4 mmol/L (22-27) 11/21/23 11:58
VBG O2 Sat (Josselyn) 98.7 % 11/21/23 11:58
VBG Base Excess 0.7 mmol/L (-4 to +4) 11/21/23 11:58
VBG O2 Therapy 11/21/23 11:58
Mixed VBG O2 Saturation 71.7 % 12/03/23 10:09
Sodium 143 mMOL/L (136-145) 12/02/23 16:22
Potassium 3.4 mMOL/L (3.5-5.1) L 12/02/23 16:22
O2 Delivery Level 12/03/23 09:34
Sodium 144 mmol/L (135-145) 12/05/23 05:27
Potassium 4.0 mmol/L (3.5-5.1) 12/05/23 05:27
Chloride 110 mmol/L (98-107) H 12/05/23 05:27
Carbon Dioxide 28 mmol/L (22-30) 12/05/23 05:27
BUN 66 mg/dl (7-17) H 12/05/23 05:27
Creatinine 1.8 mg/dL (0.6-1.0) H 12/05/23 05:27
Estimated Creat Clear 23 ml/min 12/05/23 05:27
eGFR 28.66 12/05/23 05:27
Glucose 120 mg/dl (70-99) H 12/05/23 05:27
Hemoglobin A1c 6.9 % (4.0-5.6) H 11/21/23 06:58
Lactic Acid 0.9 mmol/L (0.7-2.0) 12/01/23 06:47
Calcium 9.4 mg/dl (8.4-10.2) 12/05/23 05:27
Ionized Calcium 1.26 mMOL/L (1.15-1.33) 12/02/23 16:22
Magnesium 2.3 mg/dl (1.6-2.3) 12/03/23 05:16
Iron 88 ug/dl (37-170) 11/21/23 06:58
TIBC 295 ug/dl (265-497) 11/21/23 06:58
% Saturation 29 % (20-50) 11/21/23 06:58
Ferritin 145.0 ng/ml (11.1-264.0) 11/21/23 06:58
Total Bilirubin 0.7 mg/dl (0.2-1.3) 12/03/23 05:16
Direct Bilirubin 0.3 mg/dl (0.0-0.4) 12/01/23 06:47
AST 37 U/L (14-36) H 12/03/23 05:16
ALT < 10 U/L (0-35) 12/03/23 05:16
Alkaline Phosphatase 50 U/L (38-126) 12/03/23 05:16
Ammonia < 9 umol/L (9-30) L 12/03/23 09:34
Troponin I 7.190 ng/ml H* 11/23/23 22:34
Qzz-F-Mzenziukgeb Pept 91115 pg/ml 11/24/23 04:50
Total Protein 5.1 g/dl (6.3-8.2) L 12/03/23 05:16
Albumin 3.1 g/dl (3.5-5.0) L 12/03/23 05:16
Triglycerides 113 mg/dl (10-149) 11/24/23 04:50
Total Cholesterol 129 mg/dl (50-199) 11/24/23 04:50
LDL Cholesterol, Calc 63 mg/dl 11/24/23 04:50
VLDL Cholesterol, Calc 22 mg/dl (0-30) 11/24/23 04:50
HDL Cholesterol 44 mg/dl 11/24/23 04:50
Vitamin B12 777 pg/ml (239-931) 11/21/23 06:58
Folate 7.5 ng/ml (2.76-20) 11/21/23 06:58
Procalcitonin Cancelled 12/01/23 06:55
TSH (Reflex) 2.61 uIU/ml (0.47-4.68) 11/21/23 06:58
Random Cortisol 16.8 ug/dl 11/21/23 06:58
Urine Color Yellow 12/04/23 06:15
Urine Clarity Clear (Clear) 12/04/23 06:15
Urine pH 6.0 (5.0-9.0) 12/04/23 06:15
Ur Specific [place] 1.015 (<1.030) 12/04/23 06:15
Urine Ketones Negative (Negative) 12/04/23 06:15
Urine Occult Blood Cancelled 11/20/23 14:49
Ur Occult Blood Reflex 2+ (Negative) A 12/04/23 06:15
Urine Nitrite Cancelled 11/20/23 14:49
Urine Nitrite (Reflex) Negative (Negative) 12/04/23 06:15
Urine Bilirubin Negative (Negative) 12/04/23 06:15
Urine Urobilinogen Negative (Neg - 1+) 12/04/23 06:15
Ur Leukocyte Esterase Cancelled 11/20/23 14:49
Leukocyte Esterase Rfl Negative (Negative) 12/04/23 06:15
Urine RBC 3-6 /HPF (0-2) A 12/04/23 06:15
Urine WBC (Reflex) 3-5 /HPF (0-5) 12/04/23 06:15
Ur Squamous Epith Cells 11-15 /LPF (Few) 12/04/23 06:15
Amorphous Crystals Seen 11/29/23 07:27
Urine Bacteria (Reflex) Few (Negative) A 12/04/23 06:15
Granular Casts 3-5 /LPF (0) 11/29/23 07:27
Urine Mucus Few 11/29/23 07:27
Urine Osmolality 392 mOsm/kg (300-900) 11/20/23 14:49
Urine Creatinine 44.300 mg/dl 11/20/23 14:49
Urine Sodium 54 mmol/L (30-90) 11/20/23 14:49
Urine Glucose Negative (Negative) 12/04/23 06:15
Urine Albumin Cancelled 11/20/23 14:49
Urine Albumin (Reflex) 1+ (Neg - Trace) A 12/04/23 06:15
B-Hydroxybutyrate 0.19 mmol/L (0.02-0.27) 11/20/23 07:36
Hepatitis A IgM Ab Negative (Negative) 11/30/23 16:11
Hepatitis A Ab Total Positive (Negative) 11/30/23 16:11
Hep Bs Antigen Negative (Negative) 11/30/23 16:11
Hep Bs Antibody Positive 11/30/23 16:11
Hep B Core Total Ab Negative (Negative) 11/30/23 16:11
Hep B Core IgM Ab Negative (Negative) 11/30/23 16:11
Hepatitis C Antibody Negative (Negative) 11/30/23 16:11
POC ABG Comment Post 11/29/23 13:14
POC pH 7.43 (7.35-7.45) 11/29/23 13:14
POC Base Excess -1.8 mmol/L 11/29/23 13:14
POC pO2 505 mmHg (80-100) H 11/29/23 13:14
POC pCO2 34 mmHg (35-45) L 11/29/23 13:14
POC HCO3 22 mmol/L (21-29) 11/29/23 13:14
POC Glucose 157 mg/dl (70-99) H 12/05/23 12:10
POC Glucose 136 mg/dl (65-99) H 11/29/23 13:14
POC Sodium 143 mmol/L (135-145) 11/29/23 13:14
POC Potassium 4.2 mmol/L (3.6-5.0) 11/29/23 13:14
POC Ionized Calcium 1.31 mmol/L (1.12-1.27) H 11/29/23 13:14
POC ACT+ 115 Seconds (82-134) 11/29/23 13:12
POC Hemoglobin Calc 7.9 11/29/23 13:14
POC Hematocrit 23 % PCV (37-47) L 11/29/23 13:14
POC Hemodilution Yes 11/29/23 13:14
Blood Type AB POS 11/30/23 16:15
Blood Type Confirm AB POS 11/27/23 16:53
Antibody Screen Negative (Negative) 11/30/23 16:15
Crossmatch IS Only See Detail 11/30/23 16:15
�
Diagnostic Results: as per HPI
Assessment: 78 year old Female with PMH of ( CAD, last stent 2018, ICM EF 40%, chronic systolic HF, NIDDM, HTN, HLD, and CKD3) s/p CABG on 11/28 and ICD on 12/01/2023
Plan
PT/OT to increase independence with ADLs, improve balance, coordination, endurance, strength, mobility, community reintegration, decreased burden of care on others and family education.
Debility s/p CABG: cont PT/OT
HTN: carvedilol 6.25mg bid, monitor closely
KELLIE on CKD 3: bun 66, creatinine, 1.8- per nephrology:12/04- acute kidney injury is related to prerenal stimulus from compromised effective circulating volume leading to ATN-hold off on diuretics today
HLD: Atorvastatin 20mg
Coronary artery disease : 81mg , statin, beta-juan
STEMI S/P CABG x 4: Sternal precautions.� Aspirin 81mg, Rosuvastatin 20mg, Plavix 75mg qd, carvedilol 6.25 bid, hydralazine 10mg tid, Amiodarone 200mg bid� Monitor incision, pain control.
DM II: Accu-Cheks, insulin sliding scale, metformin, aspart 5 units sc AC, lantus 10 units.
Anemia: Hgb 9.2
Leukocytosis: 10.6 to 13- monitor
Psych: Psychology consult.� Monitor mood, adjust medications as needed.
Skin: monitor for pressure sores/rashes/lesions.
Pain: acetaminophen or oxycodone as needed.
Bowel: Colace and Senna, PRN bisacodyl.
Bladder: Time void, PVRs, PRN straight cath.
GI Prophylaxis: Pantoprazole 40mg qd
DVT Prophylaxis: mechanical and heparin 5000 units q 12
Pulmonary: Incentive spirometry
Safety: Continue to reinforce assistance with all transfers.
Code Status:� Full code
Dispo (date/plan/equipment needs): Home with family care.� Social history reviewed.
Functional and Medical Goals: Modified Independent with ADL�s, ambulation, transfers
Discharge Destination: Acute Inpatient Rehab when medically stable
Summary of recommendations:78-year-old female status post CABG on 11/28 and ICD implantation on 12/01/2023, would benefit from acute inpatient rehabilitation once medically stable from cardiology and nephrology and kidney functions and WBC stable.
S/P CABG x 4: Sternal precautions.� Aspirin 81mg, Rosuvastatin 20mg, Plavix 75mg qd, carvedilol 6.25 bid, hydralazine 10mg tid, Amiodarone 200mg bid�. Monitor incision, pain control. Per cardio: when creatinine gets to 1.5 want to resume ACEI due to
LV dysfunction
Debility s/p CABG: cont PT/OT
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
HTN: carvedilol 6.25mg bid, monitor closely
KELLIE on CKD 3: bun 66, creatinine, 1.8- per nephrology:note on 12/04- acute kidney injury is related to prerenal stimulus from compromised effective circulating volume leading to ATN-hold off on diuretics today.
-Cr baseline - 1.5. Was at peaked 2.5 post CABG. Continued nephrology input appreciated prior to discharge
Acute HFrEF/ICM EF (30%):hold off on restarting ACEI until Cr back to baseline of approx 1.5
Altered mental status: Resolved. Head CT - negative for bleed
HLD: Atorvastatin 20mg
Coronary artery disease : 81mg , statin, beta-juan
Leukocytosis: 10.6 to 13- monitor
Pain: acetaminophen or oxycodone as needed.
Bowel: Colace and Senna, PRN bisacodyl.
Bladder: Time void, PVRs, PRN straight cath.
GI Prophylaxis: Pantoprazole 40mg qd
DVT Prophylaxis: mechanical and heparin 5000 units q 12
Pulmonary: Incentive spirometry
Safety: Continue to reinforce assistance with all transfers.
Thank you for allowing me to care for your patient. Please contact me with any questions or concerns.
This note was dictated using a voice recognition system. Please excuse any typographical errors from software tools engineer. If you believe there are any discrepancies, please notify our office.

Documented by User: Fito Vaughn MD 12/05/23 21:27
Consultation - Medical
-
Referring Provider: Dr. Shimon Courtney
Chief Complaint: Debility s/p CABG
History of Present Illness: This is a 78 year old Female with PMH of ( CAD, last stent 2018, ICM EF 40%, chronic systolic HF, NIDDM, HTN, HLD, and CKD3) with recent hospitalization at [facility] with HTN emergency, pulmonary edema, requiring
intubation and diagnosis of possible Takotsubo Cardiomyopathy who presented with weakness. She did not undergo cath. She was discharged home, and then presented to with weakness on 11/19. She was found to have an KELLIE and a mildly elevated
troponin. Echo 11/20/23 showed EF 35-40%, global HK, mild/mod MR, nl RV, mild TR, PASP 35. Then, on evening of 11/21, had episode of chest pain, which appears to be in setting of NSTEMI. She was reloaded with ASA, continued on Plavix; and started on
heparin and nitro drips. She underwent left cardiac catherization on 11/23 whic revealed triple vessel CAD. She underwent 4 vessels CABG on 11/29/2023 with complete heart block status-post CABG: Post ICD implantation on 12/01/2003.
Past Medical History: CAD, last stent 2018, ICM EF 40%, chronic systolic HF, NIDDM, HTN, HLD, CKD3, prolonged QTc, left foot pain, umbilical hernia
Procedure History: CABG x 4-(11/28), cholecystectomy
Family History: None pertinent
Social History:
Functional Level Premorbidly: Independent with all activities
Functional Level Currently: functional mobility- max assist of 2, 3 trial needing knee blocking each time, transfer-max assist
Tobacco: Denies
Alcohol: Denies
Drug use: Denies
Lives with: family
24-hour assistance available: No
Number of floors: 1
# steps to enter: 0
# steps to second floor: 0
Potential First floor set up:yes
Driving: yes
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
�
Allergies:
Allergy/AdvReac Type Severity Reaction Status Date / Time
No Known Allergies Allergy Unverified 11/20/23 06:21
Review of Systems:
Constitutional: (x) Normal _
Eye: (x) Normal _
Ear/Nose/Throat: (x) Normal _
Respiratory: (x) Normal _
Cardiovascular: (x) s/p cabg
Gastrointestinal: (x) Normal _
Genitourinary: (x) kellie
Musculoskeletal: (x) abNormal _ foot drop both legs since hospital before here.
Integumentary: (x) Normal _
Neurologic: (x) Normal _
Psychiatric: (x) Normal _
Endocrine: (x) Normal _
Hematologic/Lymphatic: (x) Normal _
Allergic/Immunologic: (x) Normal _
Medications:
Active Current Visit Medication List
Category Date Time Status
0.9% Sodium Chloride 500 ml [Nss] 500 ml Med 11/29/23 14:06 Active
IV CORDIS
Acetaminophen [Tylenol/Feverall] Med 11/29/23 14:06 Active
650 mg RECTAL Q4HPRN PRN
Acetaminophen [Tylenol] Med 11/29/23 14:06 Active
1,000 mg PO TID@0600,1400,2200
Acetaminophen [Tylenol] Med 11/29/23 14:06 Active
650 mg PO Q4HPRN PRN
Albuterol [ProAIR HFA INHALER] Med 11/29/23 14:06 Active
2 puff INH R Q4HPRN PRN
Amiodarone [Pacerone] Med 11/29/23 16:00 Active
200 mg PO TID
Ascorbic Acid [Vitamin C] Med 12/01/23 08:00 Active
250 mg PO DAILY
Aspirin Med 11/30/23 08:00 Active
300 mg RECTAL DAILYPRN PRN
Aspirin Chewable [Low Strength Aspirin] Med 11/30/23 08:00 Active
81 mg PO DAILY
Bisacodyl [Dulcolax] Med 11/29/23 14:06 Active
10 mg RECTAL DAILYPRN PRN
Carvedilol [Coreg] Med 12/05/23 06:36 Active
6.25 mg PO BID
Clopidogrel Bisulfate [Plavix] Med 11/30/23 08:00 Active
75 mg PO DAILY
Dextrose 50%-Water [Dextrose 50% Syringe] Med 12/02/23 14:23 Active
12.5 grams IV [id number] PRN
Docusate W/Senna [Senokot-S] Med 11/29/23 20:00 Active
1 tablet PO Q12
Flush (0.9% Sodium Chloride) [Flush (Nss)] Med 11/29/23 15:00 Active
See Dose Instructions IV PER PROTOCOL
Glucagon [GlucaGen] Med 12/02/23 14:23 Active
1 mg IM PRN PRN
Heparin Med 12/01/23 20:00 Active
5,000 units SC Q12
HydrALAZINE [Apresoline] Med 12/05/23 06:35 Active
10 mg PO TID
Insulin Aspart Corrective Low [Novolog Flexpen-Low Med 12/04/23 16:30 Active
Resistance]
See Protocol SC AC
Insulin Aspart Pen [Novolog Flexpen] Med 12/04/23 16:30 Active
5 units SC AC
Insulin Glargine Lantus [Lantus] 10 units Med 12/03/23 22:00 Active
Subcutaneous Insulin Syringe [Syringe-Insulin] 0 unit
SC HS
Lidocaine [Lidocaine 4% Patch] Med 11/30/23 08:00 Active
1 patch TOPICAL DAILY
Magnesium Hydroxide [Milk of Magnesia] Med 11/29/23 14:06 Active
30 ml PO BIDPRN PRN
Magnesium Oxide Med 11/30/23 08:00 Hold
500 mg PO BID
Ondansetron Injectable [Zofran] Med 11/29/23 14:06 Active
4 mg IV Q8HPRN PRN
Pantoprazole [Protonix] Med 11/30/23 08:00 Active
40 mg PO DAILY
Remove Patch [Remove Lidocaine Patch] Med 11/30/23 20:00 Active
See Dose Instructions REMOVE DAILY@1999
Rosuvastatin Calcium [Crestor] Med 12/02/23 08:00 Active
20 mg PO DAILY
Vitals:
Temp Pulse Resp BP Pulse Ox
98.7 F 71 16 163/86 96
12/05/23 11:42 12/05/23 12:30 12/05/23 11:42 12/05/23 11:37 12/05/23 11:42
Height 5 ft 1 in
Actual Weight 68.2 kg
Body Mass Index (BMI) 28.4
Physical Exam:
General Appearance/Observation: Well-developed, well-nourished female in no apparent distress.
Pain/Comfort Assessment: minimal chest
Mood/Affect: Appropriate
Integumentary/Operative Site:sternal incision with aqucel, drain sites covered. Right leg incisions C/D/I.
�� Pressure Ulcer Evaluation: absent over heels.
�� �� Other Type of Wound: ICD on left upper chest with dressing
�
Eyes: Conjunctiva/Lids: normal ��� Pupils: pupils equal round and reactive to light and Accommodation
Ears/Nose/Throat: oral mucosa moist,� throat clear.������������ Lips/Teeth/Gums: normal
Neck: No muscle spasm or tenderness
Cardiovascular: Heart: regular, no murmur
Pulses: dorsalis pedis 1+ bilaterally
Respiratory: Respiratory Effort/Chest Expansion: normal ������� Auscultation: Clear to auscultation bilaterally
Gastrointestinal: abdomen not tender, no distension, normal abdominal bowel sounds
Genitourinary: No Jones
Extremities: Edema: None Cyanosis: None Trophic changes: None
Neurology Exam:
Orientation: Alert, Oriented to self, Time, Place
Memory: Intact for immediate medical concerns
Repetition:Not tested
Comprehension: Intact
Two step command: Intact
Naming: Intact
Cranial Nerves:
�� CNII: Pupillary light reflex: Intact��� Visual Field: Intact
�� CN III, IV, : Extraocular muscles: Intact
�� CN V: Facial Sensation at Forehead: Intact, Maxilla: Intact, Mandible: Intact
�� CN VII: Facial movement: Symmetric
�� CN VIII: Hearing: Normal
�� CN IX/X: Speech & swallow: Normal, Position of Uvula: Midline
�� CN XI: Shoulder shrug: Symmetric
�� CN XII: Tongue protrusion: Midline
Sensory:
�� Light touch: Intact in bilateral upper and lower extremities, no loss of sensation deep peroneal bilaterally.
��
Reflexes:
�� Biceps: absent bilaterally
�� Brachioradialis: absent bilaterally
�� Triceps: absent+ bilaterally
�� Patellar: 0 bilaterally
�� Achilles: 0 bilaterally
�� Babinski: no response bilaterally
�� Clonus: None
�� Isabella: Negative bilaterally
Cerebellar: Dysmetria/Ataxia: NT
Musculoskeletal: Motor: (Manual muscle scale 0-5)
Muscle SA EF WE EE FF FA HF KE DF EHL PF
Right� >3+ >3+ 5 >3+ 5 4 2+ 4 0 0 1
Left >3+ >3+ 5 >3+ 5 4 2+ 4 2 2 2
Tone: Normal in all extremities
Range of Motion: Passively within normal limits, did not fully test arms due to recent surgery
Lab Results
Labs
WBC 13.0 10^3/uL (4.8-10.8) H 12/05/23 05:27
RBC 2.96 10^6/uL (4.20-5.40) L 12/05/23 05:27
Hgb 9.2 g/dL (12.0-16.0) L 12/05/23 05:27
Hct 26.6 % (37.0-47.0) L 12/05/23 05:27
MCV 89.9 fL (81.0-99.0) 12/05/23 05:27
MCH 31.1 pg (27.0-31.0) H 12/05/23 05:27
MCHC 34.6 g/dL (33.0-37.0) 12/05/23 05:27
RDW 15.2 % (11.5-14.5) H 12/05/23 05:27
Plt Count 190 10^3/uL (130-400) D 12/05/23 05:27
MPV 9.8 fL (7.4-10.4) 12/05/23 05:27
Abs Immat Gran (auto) Cancelled 11/29/23 06:00
Absolute Neuts (auto) Cancelled 11/29/23 06:00
Absolute Lymphs (auto) Cancelled 11/29/23 06:00
Absolute Monos (auto) Cancelled 11/29/23 06:00
Absolute Eos (auto) Cancelled 11/29/23 06:00
Absolute Basos (auto) Cancelled 11/29/23 06:00
CBC Comment Cancelled 11/29/23 06:00
Immature Gran % Cancelled 11/29/23 06:00
Neutrophils % Cancelled 11/29/23 06:00
Lymphocytes % Cancelled 11/29/23 06:00
Monocytes % Cancelled 11/29/23 06:00
Eosinophils % Cancelled 11/29/23 06:00
Basophils % Cancelled 11/29/23 06:00
Nucleated RBC % Cancelled 11/29/23 06:00
Retic Count 1.6 % (0.4-2.8) 11/21/23 06:58
PT 18.7 Sec (11.4-14.6) H 11/29/23 14:56
INR 1.55 11/29/23 14:56
APTT 34.9 Sec (23.4-35.0) 11/29/23 14:56
Fibrinogen Cancelled 11/22/23 21:25
Fibrinogen Cancelled 11/22/23 21:25
D-Dimer 7.90 ug/mlFEU (0.00-0.50) H 11/22/23 20:15
pH 7.34 (7.35-7.45) L 12/03/23 09:34
pCO2 35 mmHg (32-35) 12/03/23 09:34
pO2 112 mmHg (83-108) H 12/03/23 09:34
HCO3 18.9 mmol/L (21-28) L 12/03/23 09:34
Base Excess -6.2 mmol/L 12/03/23 09:34
ABG O2 Sat (Measured) 99.2 % (94-98) H 12/03/23 09:34
POC ABG O2 Sat (Calc) 100.0 5 (92-96) H 11/29/23 13:14
VBG pH 7.41 (7.32-7.43) 11/21/23 11:58
VBG pCO2 40 mmHg (35-48) 11/21/23 11:58
VBG pO2 85 mmHg (30-50) H 11/21/23 11:58
VBG HCO3 25.4 mmol/L (22-27) 11/21/23 11:58
VBG O2 Sat (Josselyn) 98.7 % 11/21/23 11:58
VBG Base Excess 0.7 mmol/L (-4 to +4) 11/21/23 11:58
VBG O2 Therapy 11/21/23 11:58
Mixed VBG O2 Saturation 71.7 % 12/03/23 10:09
Sodium 143 mMOL/L (136-145) 12/02/23 16:22
Potassium 3.4 mMOL/L (3.5-5.1) L 12/02/23 16:22
O2 Delivery Level 12/03/23 09:34
Sodium 144 mmol/L (135-145) 12/05/23 05:27
Potassium 4.0 mmol/L (3.5-5.1) 12/05/23 05:27
Chloride 110 mmol/L (98-107) H 12/05/23 05:27
Carbon Dioxide 28 mmol/L (22-30) 12/05/23 05:27
BUN 66 mg/dl (7-17) H 12/05/23 05:27
Creatinine 1.8 mg/dL (0.6-1.0) H 12/05/23 05:27
Estimated Creat Clear 23 ml/min 12/05/23 05:27
eGFR 28.66 12/05/23 05:27
Glucose 120 mg/dl (70-99) H 12/05/23 05:27
Hemoglobin A1c 6.9 % (4.0-5.6) H 11/21/23 06:58
Lactic Acid 0.9 mmol/L (0.7-2.0) 12/01/23 06:47
Calcium 9.4 mg/dl (8.4-10.2) 12/05/23 05:27
Ionized Calcium 1.26 mMOL/L (1.15-1.33) 12/02/23 16:22
Magnesium 2.3 mg/dl (1.6-2.3) 12/03/23 05:16
Iron 88 ug/dl (37-170) 11/21/23 06:58
TIBC 295 ug/dl (265-497) 11/21/23 06:58
% Saturation 29 % (20-50) 11/21/23 06:58
Ferritin 145.0 ng/ml (11.1-264.0) 11/21/23 06:58
Total Bilirubin 0.7 mg/dl (0.2-1.3) 12/03/23 05:16
Direct Bilirubin 0.3 mg/dl (0.0-0.4) 12/01/23 06:47
AST 37 U/L (14-36) H 12/03/23 05:16
ALT < 10 U/L (0-35) 12/03/23 05:16
Alkaline Phosphatase 50 U/L (38-126) 12/03/23 05:16
Ammonia < 9 umol/L (9-30) L 12/03/23 09:34
Troponin I 7.190 ng/ml H* 11/23/23 22:34
Xxi-J-Thbgchvkuiz Pept 12358 pg/ml 11/24/23 04:50
Total Protein 5.1 g/dl (6.3-8.2) L 12/03/23 05:16
Albumin 3.1 g/dl (3.5-5.0) L 12/03/23 05:16
Triglycerides 113 mg/dl (10-149) 11/24/23 04:50
Total Cholesterol 129 mg/dl (50-199) 11/24/23 04:50
LDL Cholesterol, Calc 63 mg/dl 11/24/23 04:50
VLDL Cholesterol, Calc 22 mg/dl (0-30) 11/24/23 04:50
HDL Cholesterol 44 mg/dl 11/24/23 04:50
Vitamin B12 777 pg/ml (239-931) 11/21/23 06:58
Folate 7.5 ng/ml (2.76-20) 11/21/23 06:58
Procalcitonin Cancelled 12/01/23 06:55
TSH (Reflex) 2.61 uIU/ml (0.47-4.68) 11/21/23 06:58
Random Cortisol 16.8 ug/dl 11/21/23 06:58
Urine Color Yellow 12/04/23 06:15
Urine Clarity Clear (Clear) 12/04/23 06:15
Urine pH 6.0 (5.0-9.0) 12/04/23 06:15
Ur Specific [place] 1.015 (<1.030) 12/04/23 06:15
Urine Ketones Negative (Negative) 12/04/23 06:15
Urine Occult Blood Cancelled 11/20/23 14:49
Ur Occult Blood Reflex 2+ (Negative) A 12/04/23 06:15
Urine Nitrite Cancelled 11/20/23 14:49
Urine Nitrite (Reflex) Negative (Negative) 12/04/23 06:15
Urine Bilirubin Negative (Negative) 12/04/23 06:15
Urine Urobilinogen Negative (Neg - 1+) 12/04/23 06:15
Ur Leukocyte Esterase Cancelled 11/20/23 14:49
Leukocyte Esterase Rfl Negative (Negative) 12/04/23 06:15
Urine RBC 3-6 /HPF (0-2) A 12/04/23 06:15
Urine WBC (Reflex) 3-5 /HPF (0-5) 12/04/23 06:15
Ur Squamous Epith Cells 11-15 /LPF (Few) 12/04/23 06:15
Amorphous Crystals Seen 11/29/23 07:27
Urine Bacteria (Reflex) Few (Negative) A 12/04/23 06:15
Granular Casts 3-5 /LPF (0) 11/29/23 07:27
Urine Mucus Few 11/29/23 07:27
Urine Osmolality 392 mOsm/kg (300-900) 11/20/23 14:49
Urine Creatinine 44.300 mg/dl 11/20/23 14:49
Urine Sodium 54 mmol/L (30-90) 11/20/23 14:49
Urine Glucose Negative (Negative) 12/04/23 06:15
Urine Albumin Cancelled 11/20/23 14:49
Urine Albumin (Reflex) 1+ (Neg - Trace) A 12/04/23 06:15
B-Hydroxybutyrate 0.19 mmol/L (0.02-0.27) 11/20/23 07:36
Hepatitis A IgM Ab Negative (Negative) 11/30/23 16:11
Hepatitis A Ab Total Positive (Negative) 11/30/23 16:11
Hep Bs Antigen Negative (Negative) 11/30/23 16:11
Hep Bs Antibody Positive 11/30/23 16:11
Hep B Core Total Ab Negative (Negative) 11/30/23 16:11
Hep B Core IgM Ab Negative (Negative) 11/30/23 16:11
Hepatitis C Antibody Negative (Negative) 11/30/23 16:11
POC ABG Comment Post 11/29/23 13:14
POC pH 7.43 (7.35-7.45) 11/29/23 13:14
POC Base Excess -1.8 mmol/L 11/29/23 13:14
POC pO2 505 mmHg (80-100) H 11/29/23 13:14
POC pCO2 34 mmHg (35-45) L 11/29/23 13:14
POC HCO3 22 mmol/L (21-29) 11/29/23 13:14
POC Glucose 157 mg/dl (70-99) H 12/05/23 12:10
POC Glucose 136 mg/dl (65-99) H 11/29/23 13:14
POC Sodium 143 mmol/L (135-145) 11/29/23 13:14
POC Potassium 4.2 mmol/L (3.6-5.0) 11/29/23 13:14
POC Ionized Calcium 1.31 mmol/L (1.12-1.27) H 11/29/23 13:14
POC ACT+ 115 Seconds (82-134) 11/29/23 13:12
POC Hemoglobin Calc 7.9 11/29/23 13:14
POC Hematocrit 23 % PCV (37-47) L 11/29/23 13:14
POC Hemodilution Yes 11/29/23 13:14
Blood Type AB POS 11/30/23 16:15
Blood Type Confirm AB POS 11/27/23 16:53
Antibody Screen Negative (Negative) 11/30/23 16:15
Crossmatch IS Only See Detail 11/30/23 16:15
Diagnostic Results: as per HPI
Assessment: 78 year old Female with PMH of ( CAD, last stent 2018, ICM EF 40%, chronic systolic HF, NIDDM, HTN, HLD, and CKD3) s/p CABG on 11/28 and ICD on 12/01/2023
Plan
PT/OT to increase independence with ADLs, improve balance, coordination, endurance, strength, mobility, community reintegration, decreased burden of care on others and family education.
Debility s/p CABG: cont PT/OT
Altered mental status: Resolved. Head CT - negative for bleed
B/L LE weakness: seems to be worse in ankles, daughter and patient note some foot drop discussion at last hospital stay. Multipodous boots. No light touch decrease over the foot. Monitor clinically, consider EMG/NCS.
- CT chest: Mild right scoliosis. No compression deformity. Multilevel moderate degenerative disc disease with narrowing throughout the thoracic spine. Flowing ossification along the ventral margin of the vertebral bodies, crossing the endplates and
disc spaces, consistent with diffuse idiopathic skeletal hyperostosis.
- CT abd/pelvis: Degenerative changes are seen within the included lower thoracic and lumbar spine.
HTN: carvedilol 6.25mg bid, monitor closely
KELLIE on CKD 3: bun 66, creatinine, 1.8- per nephrology:12/04- acute kidney injury is related to prerenal stimulus from compromised effective circulating volume leading to ATN-hold off on diuretics today
HLD: Atorvastatin 20mg
CAD with NSTEMI S/P CABG x 4 (11/29/23 Dr. Robins): Sternal precautions.� Pain control. Aspirin 81mg, Rosuvastatin 20mg, Plavix 75mg qd, carvedilol 6.25 bid, hydralazine 10mg tid, Amiodarone 200mg bid�
- monitor incisions over chest and right leg.
- Per cardio: when creatinine gets to 1.5 want to resume ACEI due to LV dysfunction
Complete heart block status-post ICD: Remains stable status-post ICD implantation.Continue product advisor.
Takotsubo cardiomyopathy/chronic systolic congestive heart failure - EF decreased to 30-35%:, beta juan, hydralazine. Diuretic held with KELLIE, hold off on restarting ACEI until Cr back to baseline of approx 1.5
DM II: Accu-Cheks, insulin sliding scale, metformin, aspart 5 units sc AC, lantus 10 units.
Pneumonia: completed antibiotics.
Subcentimeter lung nodules (LUE, L lateral and RUL): Follow up with pulm for repeated CT chest in 3-6 months after d/c - family verbalized understanding
Anemia: Hgb 9.2
Leukocytosis: 10.6 to 13- monitor
Psych: Psychology consult.� Monitor mood, adjust medications as needed.
Skin: monitor for pressure sores/rashes/lesions.
Pain: acetaminophen or oxycodone as needed.
Bowel: Colace and Senna, PRN bisacodyl. Had fecal impaction with constipation now resolved.
Bladder: Time void, PVRs, PRN straight cath.
GI Prophylaxis: Pantoprazole 40mg qd
DVT Prophylaxis: mechanical and heparin 5000 units q 12
Pulmonary: Incentive spirometry
Safety: Continue to reinforce assistance with all transfers.
Code Status:� Full code
Dispo (date/plan/equipment needs): Home with family care.� Social history reviewed.
Functional and Medical Goals: Modified Independent with ADL�s, ambulation, transfers
Discharge Destination: Acute Inpatient Rehab when medically stable
Attending Statement:
I saw and examined the patient today.� Reviewed care plan with patient, therapy, nursing, and physician communications assistant.� I agree with the above subjective and physical exam, and plan as documented by BLANCA Curry with adjustments made as necessary.
A total of 80 minutes were spent with the patient preparing for the evaluation, obtaining history, performing examination and evaluation, counseling, data review, case management, care coordination, eating disorder psychologist, and EMR documentation.
Summary of recommendations:78-year-old female status post CABG on 11/28 and ICD implantation on 12/01/2023, would benefit from acute inpatient rehabilitation once medically stable from cardiology and nephrology and kidney functions and WBC stable.
CAD with NSTEMI S/P CABG x 4 (11/29/23 Dr. Robins): Sternal precautions.� Pain control. Aspirin 81mg, Rosuvastatin 20mg, Plavix 75mg qd, carvedilol 6.25 bid, hydralazine 10mg tid, Amiodarone 200mg bid�
- monitor incisions over chest and right leg.
- Per cardio: when creatinine gets to 1.5 want to resume ACEI due to LV dysfunction
Complete heart block status-ICD: Remains stable status-post ICD implantation.Continue product advisor.
KELLIE on CKD 3: bun 66, creatinine, 1.8- per nephrology:note on 12/04- acute kidney injury is related to prerenal stimulus from compromised effective circulating volume leading to ATN-hold off on diuretics today.
-Cr baseline - 1.5. Was at peaked 2.5 post CABG. Continued nephrology input appreciated prior to discharge
Takotsubo cardiomyopathy/chronic systolic congestive heart failure - EF decreased to 30-35%:, beta juan, hydralazine. Diuretic held with KELLIE, hold off on restarting ACEI until Cr back to baseline of approx 1.5
Altered mental status: Resolved. Head CT - negative for bleed
B/L LE weakness: seems to be worse in ankles, daughter and patient note some foot drop discussion at last hospital stay. Multipodous boots. No light touch decrease over the foot. Monitor clinically, consider EMG/NCS.
Leukocytosis: 10.6 to 13- monitor
DVT Prophylaxis: mechanical and heparin 5000 units q 12
KELLIE on CKD 3: bun 66, creatinine, 1.8- per nephrology:12/04- acute kidney injury is related to prerenal stimulus from compromised effective circulating volume leading to ATN-hold off on diuretics today
Pneumonia: completed antibiotics.
Subcentimeter lung nodules (LUE, L lateral and RUL): Follow up with pulm for repeated CT chest in 3-6 months after d/c - family verbalized understanding
Thank you for allowing me to care for your patient. Please contact me with any questions or concerns.
[2023-12-05] MEDS: TYLENOL PO (14:29)
--- NOTE | 2023-12-05 15:41 | PTOTSP ---
Addendum entered and electronically signed by ST Keyonna 12/06/23 08:41:
Patient ok to take medications whole in puree.
Original Note:
Dysphagia Therapy
Patient is appropriate to advance to a regular diet (to expand food choices) picking soft/moist foods from the menu and using small single sips with liquids. Education completed with patient and daughter about swallowing strategies below.
Recommend:
1. Regular (pick soft/moist), thin liquids
2. Meds crushed in puree
3. Strategies: small bites, single sips, slow rate, chew well, PO ONLY WHEN AWAKE AND ALERT, upright to 90 degrees
4. Aspiration precautions - oral care 3x daily
5. [employer] GRADER service to follow up at the acute care level for instruction in compensations, assess diet tolerance, and determine if further swallowing assessment warranted.
[2023-12-05] MEDS: APRESOLINE 10 MG PO ×2 (16:15→21:42)
--- NOTE | 2023-12-05 16:23 | PTCARENOTE ---
VS obtained. Assessment unchanged. Patient resting comfortably, family at bedside. Perusing dinner menu.
[2023-12-05 18:02] LABS: Glucose - Point of Care 126 mg/dl (70-99)
--- NOTE | 2023-12-05 20:00 | PTCARENOTE ---
Received pt from dayshift; pt is resting comfortably in bed; NSR on monitor, VSS; pt is AAOx4, denies pain; heart sounds audible, radial pulses palpable, DP pulses audible via doppler, PPM set to DDDR 50-130, VF/VT 188; lung sounds diminished, spo2
95% on RA; + BS x4 quadrants, abdomen soft non tender; pt voiding via purewick; surgical sites maintained, sacral wound dressing clean dry intact; PIV maintained; family at bedside; call dacosta within reach; will continue to monitor;
[2023-12-05] MEDS: LANTUS 0.1 UNITS SC (21:43)
[2023-12-05 21:46] LABS: Glucose - Point of Care 181 mg/dl (70-99)
[2023-12-06] VITALS (12 sets, daily range): BP systolic 119–184; BP diastolic 76–101; PULSE 71; O2SAT 98–100; BMI 27.8
--- NOTE | 2023-12-06 | PTCARENOTE ---
Pt assessment unchanged; pt resting comfortably in bed; NSR on monitor, VSS; pt's daughter is at bedside; pt is repositioned for comfort; call be within reach; will continue to monitor.
--- NOTE | 2023-12-06 00:39 | W.PN.CT ---
Addendum entered and electronically signed by Almas Robins MD 12/06/23 12:01:
I saw and examined the patient.
The PA's note was reviewed and I agree with the note.
Comment:
D/C planning for rehab when bed available
Original Note:
Today's Communication / Plan
-
-pod #7
-no issues overnight
-appreciate speech/PT/OT input
-s/p icd implant 12/01/23
-Cr 1.7 today (2.0 on 12/03, peak 2.5 on 12/02, and 1.7-1.8 preop)
-encourage IS
-small R pleural effusion/atelectasis- follow
-hypertensive- started on Hydralazine, Coreg 6.25 bid (was on 12.5 bid preop)
-current meds (ASA, Plavix, Coreg, Crestor, Amio, hydralazine, Protonix, ISS/Lantus)
-Heparin sq for DVT prophylaxis
-continue PT/OT/PMR consult. Acute Inpatient Rehab when medically stable
-appreciate everyone's input
Assessment / Plan
-
Assessment:
-Severe 3v CAD- s/p CABG x 4 (HINDS to LAD, GSV to D2, GSV to OM1, GSV to RPDA) on 11/29/[address] Robins, pod #7
-Intraop SUPRIYA: LVEF 30-35%, global hypokinesis w/ minor improvement in lateral wall, mild MR, mild TR, no AI/, RV OK
-[place]
-NSTEMI (peak trop 7.36)
-Hx of CAD S/P PCI with prior 7 stents, most recent stent in 2018
-Plavix washout, last dose on 11/23 @ 0832
-Acute on chronic ICM (LVEF 30% per TTE on 11/22)
-Systolic CHF with recent hospitalization at [facility] ([facility]) w/ HTN emergency, pulmonary edema requiring intubation - ? Takotsubo CM
-Acute hypoxic respiratory failure, evolved after admission, now resolved
-Mild-moderate MR
-Mildly dilated left atrium
-LBBB preop
-Tachycardia
-Hx of Takotsubo syndrome
-KELLIE on chronic CKD3b (cr 3.0 on 11/20, now 1.8, per family baseline Cr is 1.4)
-Chronic Anemia
-HTN
-HLD
-T2DM (A1C 6.9)
-LETTY lung nodules (7.1 mm, incidental findings from chest CT 11/23)
-Thyroid nodule (1.4 cm, incidental findings from chest CT 11/23)
-Mild right scoliosis
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
-Acute postop blood loss anemia on chronic anemia - s/p 1 pRBC preop 11/27, 3 pRBCs and 1 unit platelet intraop, 1pRBC and 2 FFPs postop 11/28+ 1pRBC on 11/29+ 1pRBC on 12/01
-Acute postop coagulopathy
-Cardiogenic shock (postop CO/CI: 1.5/0.95; Preop starting CI 1.4)- requiring inotrops
-Acute postop hypovolemia with subsequent hypervolemia
-Acute postop atelectasis
-Acute postop long Qt
-KELLIE on CKD (Jones dcd 12/03)
-Acute postop lethargy- responds to voice, holding narcotics-improved, now A&O x4
-Coccyx pressure injury, stage 1
Subjective
Procedure
- s/p CABG x 4 (HINDS to LAD, GSV to D2, GSV to OM1, GSV to RPDA) on 11/29/[address] Robins
-
Date of Service: December 06, 2023
Objective Data
-
PT 18.7 Sec (11.4-14.6) H 11/29/23 14:56
INR 1.55 11/29/23 14:56
APTT 34.9 Sec (23.4-35.0) 11/29/23 14:56
Vital Signs
Vital Signs
Temp Pulse Resp BP Pulse Ox
99.1 F 77 16 171/92 95
12/05/23 20:00 12/05/23 20:30 12/05/23 20:00 12/05/23 20:17 12/05/23 21:00
CT Intake/Output/Weight
12/05/23 12/05/23 12/06/23
06:59 18:59 06:59
Intake Total 240 / 840 240 / 240
Output Total 400 / 700 325 / 500 175 / 500
Balance -160 / 140 -85 / -260 -175 / -260
SaO2: 95
Physical Exam
-
General: Awake, Oriented and AOx3
Cardiovascular: Regular rate & rhythm
Respiratory: Clear, Equal and Decreased Breath Sounds
Sternum: Stable
Incision: Clean, Dry and Intact
Extremities: No Edema and No Erythema
Data Reviewed
-
Lab Results: Results Reviewed
Medications: Active Meds Reviewed
Chest X-Ray: Report Reviewed
ECG: Report Reviewed
[2023-12-06] MEDS: TYLENOL 1000 MG PO ×2 (03:52→13:02)
--- NOTE | 2023-12-06 04:00 | PTCARENOTE ---
Pt assessment unchanged; NSR on monitor, VSS; AM labs drawn; call dacosta within reach, will continue to monitor.
[2023-12-06 04:53] LABS: % Basophils 0.3 % (0-2); % Eosinophils 6.9 % (0-6); % Immature Granulocytes 1.1 % (0-0.5); % Lymphocytes 19.8 % (20.5-51.1); % Monocytes 8.5 % (1.7-9.3); % Neutrophils 63.4 % (42.2-75.2); Absolute Eosinophils 0.9 10^3/uL (0-0.7); Absolute Immature Granulocytes 0.2 10^3/uL (0-0.05); Absolute Lymphocytes 2.6 10^3/uL (1.2-3.4); Absolute Monocytes 1.1 10^3/uL (0.1-0.6); Absolute Neutrophils 8.3 10^3/uL (1.4-6.5); Hematocrit 26.5 % (37.0-47.0); Mean Corpuscular Hgb 30.7 pg (27.0-31.0); Mean Corpuscular Volume 90.4 fL (81.0-99.0); Mean Platelet Volume 9.7 fL (7.4-10.4); Nucleated Red Blood Cells % 0 %; Platelet Count 210 10^3/uL (130-400); Red Blood Cell Count 2.93 10^6/uL (4.20-5.40); Red Cell Dist. Width 15.3 % (11.5-14.5); White Blood Cell Count 13.1 10^3/uL (4.8-10.8)
[2023-12-06 05:14] LABS: Blood Urea Nitrogen 61 mg/dl (7-17); Calcium 9.1 mg/dl (8.4-10.2); Carbon Dioxide 26 mmol/L (22-30); Chloride 105 mmol/L (98-107); Estimated Creatinine Clearance 24 ml/min; Glucose 130 mg/dl (70-99); Potassium 3.8 mmol/L (3.5-5.1); Sodium 139 mmol/L (135-145)
[2023-12-06] MEDS: NOVOLOG FLEXPEN-LOW RESISTANCE SC ×2 (07:31→12:24)
[2023-12-06] MEDS: NOVOLOG FLEXPEN 5 UNITS SC ×2 (07:32→12:25)
[2023-12-06 07:38] LABS: Glucose - Point of Care 139 mg/dl (70-99)
--- NOTE | 2023-12-06 08:00 | PTCARENOTE ---
Received pt from spinneret cleaner RN; pt AAOx3 and resting comfortably in chair; NSR on monitor and VSS; PIV x1 patent; lungs diminished; IS to 500; positive bowel sounds; pt voiding clear yellow urine; trace lower extremity edema noted; palpable
bilateral radial pulses and present Doppler lower extremity pulses; all surgical sites C/D/I; see nursing documentation for further details.
[2023-12-06] MEDS: LOW STRENGTH ASPIRIN 81 MG PO (08:13)
[2023-12-06] MEDS: PROTONIX 40 MG PO (08:13)
[2023-12-06] MEDS: PLAVIX 75 MG PO (08:13)
[2023-12-06] MEDS: SENOKOT-S 1 TABLET PO (08:13)
[2023-12-06] MEDS: CRESTOR 20 MG PO (08:13)
[2023-12-06] MEDS: PACERONE 200 MG PO (08:13)
[2023-12-06] MEDS: VITAMIN C 250 MG PO (08:13)
[2023-12-06] MEDS: COREG 6.25 MG PO (08:14)
[2023-12-06] MEDS: HEPARIN 5000 UNITS SC (08:14)
[2023-12-06] MEDS: LIDOCAINE 4% PATCH TOPICAL (08:14)
--- NOTE | 2023-12-06 08:41 | PN.DE.MGMTRT ---
Insulin Management
- -
12/06/2023: Diabetes Management F/U:
78 year old female with PMH: CAD, s/p 7 stents in 2019, ICM EF 40%, chronic systolic HF, T2DM, HTN, HLD, and CKD3 with recent hospitalization at [facility] with HTN emergency, pulm edema, requiring intubation and diagnosis of possible Takotsubo CM.
She did not undergo cath, was discharged home, and then presented to with weakness on 11/19. She was found to have an KELLIE and mildly elevated troponin.
Prior to admission, patient was taking metformin 500 mg BID. A1C is 6.9% Cr 1.8, eGFR 25.26. Patient is off the unit for pacemaker, family at bedside.
Pt awake, A/O x3, working with PT, offers no complaints, Family-2 Dtrs at bedside, able to discuss diabetes mgt.
POD # 6 s/p CABG x 4. Cr 2.2-->2.5-->2.0-->1.8-->1.7 today, eGFR 28.66
Transitioned off critical care glycemic protocol insulin infusion on 11/30 to SQ Insulin- Lantus 10 units @ HS and moderate corrective with meals.
Unable to resume oral meds at transition time due to KELLIE.
Glucose stable and in range, fasting 130 this AM. Premeal 109 to 157, appetite remains guarded, on Glucerna TID
Will make no changes to current regimen: NovoLog 5 units AC, Lantus 10 units @ HS and low corrective with meals
Will consider resuming oral meds if Cr and eGFR improve to baseline.
Provided New OneTouch glucose meter to pt's Dtr for home use. Reviewed instructions with Dtr since she will be helping pt at home after dc from rehab.
Diabetes History
- -
Type of Diabetes: 2
Pre-Admission Diabetes Regimen
12/06/23
04:23
Creatinine 1.7 H
Lab Results
Hemoglobin A1c 6.9 % (4.0-5.6) H 11/21/23 06:58
Insulin Pump Settings
IP Diabetes Regimen
12/05/23 12/05/23 12/05/23
12:10 17:58 21:44
Glucose
POC Glucose 157 H 126 H 181 H
12/06/23 12/06/23
04:23 07:30
Glucose 130 H
POC Glucose 139 H
Meal type: Dinner
Meal type: Breakfast
Amount consumed: 65%
Amount consumed: 50%
Patient Education
[2023-12-06] MEDS: APRESOLINE 15 MG PO (09:02)
[2023-12-06] MEDS: LASIX 40 MG PO (09:05)
[2023-12-06] MEDS: APRESOLINE PO (09:32)
--- NOTE | 2023-12-06 09:44 | W.PN.NEPH.PH ---
Today's Communication / Plan
-
Follow BMP
Assessment/Plan
-
Assessment:
NSTEMI-MVD- s/p CABG x4 11/29/23
KELLIE on ?CKD
HyperK
Constipation
Weakness
C/f PNA
Plan:
s/p CABG, SUPRIYA EF 35-40%
Cr peak at 2.5, down to 1.7 now. 1000cc of urine output
Chest x-ray personally reviewed noted for bilateral effusions
Hemodynamically stable today
metabolic acidosis is resolved
I suspect acute kidney injury is related to prerenal stimulus from compromised effective circulating volume leading to ATN
40 mg p.o. Lasix have been provided
hypernatremia now resolved
d/w nursing and family at bedside
-
-
Date of Service: December 06, 2023
CC / HPI / ROS
-
Chief Complaint:
KELLIE
History of Present Illness:
Cr 1.7, peak 2.5, CABG x4 11/28
Hemodynamically improved, off milrinone
hgb at 9.2, s/p blood transfusions
Status post pacemaker placement for heart block on 12-22
Review of Systems:
resting comfortable today
Chest tube
Jones cath: non oliguric
No fever
Labs
-
Labs:
WBC 13.1 10^3/uL (4.8-10.8) H 12/06/23 04:23
RBC 2.93 10^6/uL (4.20-5.40) L 12/06/23 04:23
Hgb 9.0 g/dL (12.0-16.0) L 12/06/23 04:23
Hct 26.5 % (37.0-47.0) L 12/06/23 04:23
Plt Count 210 10^3/uL (130-400) 12/06/23 04:23
Sodium 139 mmol/L (135-145) 12/06/23 04:23
Potassium 3.8 mmol/L (3.5-5.1) 12/06/23 04:23
Chloride 105 mmol/L (98-107) 12/06/23 04:23
Carbon Dioxide 26 mmol/L (22-30) 12/06/23 04:23
BUN 61 mg/dl (7-17) H 12/06/23 04:23
Creatinine 1.7 mg/dL (0.6-1.0) H 12/06/23 04:23
eGFR 30.70 12/06/23 04:23
Glucose 130 mg/dl (70-99) H 12/06/23 04:23
Calcium 9.1 mg/dl (8.4-10.2) 12/06/23 04:23
Dat-K-Kelshbwhgou Pept 27163 pg/ml 11/24/23 04:50
Albumin 3.1 g/dl (3.5-5.0) L 12/03/23 05:16
Physical Exam
-
Vital Signs:
Vital Signs
Temp Pulse Resp BP Pulse Ox
98.4 F 68 16 179/89 96
12/06/23 08:00 12/06/23 09:02 12/06/23 08:00 12/06/23 09:02 12/06/23 08:10
Cardiovascular:: Regular rate and rhythm
Respiratory:: Bilateral: Coarse (Profoundly decreased breath sounds at the bases)
Lung Excursion:: Normal
Abdomen:: Nontender and Soft
Bowel Sounds:: Normal
Extremity Edema:: None: Bilateral:
Jones Catheter: No
--- NOTE | 2023-12-06 11:35 | CM ---
Chart reviewed. Patient is medically stable for discharge. Bed is available at [facility]. Patient to be transferred to [facility].
[2023-12-06 12:11] LABS: Glucose - Point of Care 108 mg/dl (70-99)
--- NOTE | 2023-12-06 12:33 | W.DCSUMMARY ---
Discharge Summary
Discharge Data
Date of Admission: 11/23/23
Date of Discharge: 12/06/23
-
Pending Results: No
Hospital Course
Primary care physician: Anne Marie Choi
Outpatient coatings inspector: Kingsley Iverson
Inpatient consultants: [facility] Cardiology, nephrology, diabetes nurse practitioners
Procedures:
1. Coronary artery bypass grafting
2. Implantable cardiac defibrillator
Primary Diagnosis:
1. NSTEMI/Coronary artery disease with history of prior stents
Secondary Diagnoses:
1. Postoperative complete heart block
2. Hypertension
3. Hyperlipidemia
4. Type 2 diabetes (A1C 6.9)
5. Acute kidney injury (ATN) on chronic kidney disease IIIb
6. History of respiratory with intubation
7. Acute systolic heart failure (EF 35--40%)
8. Acute postoperative cardiogenic shock
9. Coccyx pressure injury, stage 1
10. Acute postop metabolic encephalopathy
11. Constipation
12. LETTY lung nodules (7.1 mm, incidental findings from chest CT 11/23)
13. Thyroid nodule (1.4 cm, incidental findings from chest CT 11/23)
14. Mild right scoliosis
HPI: 78-year-old -Citizen Of [place] female with past medical history significant for hypertension, hyperlipidemia, CAD with 7 prior stents (last 2018), diabetes, chronic kidney disease and recent admission to [facility] with respiratory
failure, requiring intubation x 2 days, cardiomyopathy, possible pneumonia and KELLIE, was admitted on 11/20/2023 for evaluation of 4-day history of progressive weakness and fatigue.
Hospital course: Found to have KELLIE (Initial creatinine 3) and troponin 0.087. Patient denied chest pain. Hydrochlorothiazide, lisinopril and metformin were held on admission. Found to have constipation with fecal impaction-relieved by enema. TTE
on 11/19 reported an EF 35-40% with mild-moderate mitral regurgitation. On , patient experienced 10/10 chest pain and shortness of breath. A rapid response was called and blood work revealed elevated troponin (5.4) and BNP levels (1140>1950).
IV nitroglycerin and heparin were started. Repeat TTE on 11/22 reported inferolateral hypokinesis and ejection fraction of 30%. Patient underwent left heart cath on 11/24/2023, which reported triple-vessel coronary disease including in-stent
restenosis of circumflex, OM, and RCA. Transfused 1PRBC for anemia. Last dose of Plavix was 11/24/2023 and surgery delayed due to Plavix washout. Patient underwent CABG x 4 (HINDS to LAD, GSV to D2, GSV to OM1, GSV to RPDA) in 11/29/2023 with
Almas Robins. Patient received 3 PRBC and 1 platelet intraoperatively. Lower extremity MICHELL drain placed. Patient returned to CVICU on dobutamine, Cardene, Precedex, and insulin. Patient noted to have 150 cc of chest drainage from pleural chest
tube on arrival to CVICU. Patient was transfused 2 UFFP. Patient was hypertensive and started on Cardene and changed to the OR with slow wean off to be weaned. Patient is transfused another unit of packed red blood cells for hemoglobin of 7.3.
Patient was extubated on postoperative day #1 at 0555 and Dobutamine/Cardene were weaned off. Patient was noted to be lethargic with a creatinine rise to 2.2 from 1.8. Patient maintained complete heart block and amiodarone/beta-juan were held.
On postoperative day #2, patient was noted to be obtunded and head CT was obtained and reported negative. Patient remained on Milrinone. Patient underwent a Medtronic ICD implant due to complete heart block. Cardene was initiated for
hypertension. A slow wean of milrinone was initiated per Dr. Robins. Subcutaneous heparin was initiated due to immobility and Plavix remains on hold due to mental status. Patient received 1 PRBC for hemoglobin of 7.4 on postoperative day #3.
Milrinone was decreased to 0.25. Temporary pacemaker wires were cut and pleural chest tubes were discontinued. Patient received 40 of Lasix IV twice daily. As sugars remain elevated, and unable to receive metformin, Lantus was initiated 10 units
HS with diabetic nurse practitioners following. On postoperative day #4, mental status improved and Milrinone was discontinued as MVO2 was 75%. On postoperative day #5, right IJ and Jones were discontinued. Creatinine decreased to 2 and Coreg
started at 3.125 twice daily. Patient's mental status improved and was now awake alert oriented x 3. Hydralazine 5 mg 3 times daily was added as patient remained hypertensive. Afternoon blood sugar was 285 and NovoLog 5 units AC was added.
Creatinine continued downward tend and was 1.7 on day of discharge. Oral dose of Lasix 40 mg was given, Coreg dose increased to 6.25 twice daily, and hydralazine dose increased to 25 mg twice daily for hypertension. Patient had been evaluated by
speech and cleared for regular diet/thin liquids. Patient continued to progress with physical therapy and was accepted to [place] on discharge today. Per Dr. Manning's notation on 12/04, an KHADRA inhibitor may be resumed for LV dysfunction
when creatinine is 1.5 or less.
Home medication changes:
Stop:
Imdur
Ranexa
Lisinopril 40 mg (d/t KELLIE)
Metformin 1000 mg twice daily (d/t KELLIE)
Nifedipine 30 mg daily (d/t HFrEF)
Crestor 10 mg daily changed to 20 mg daily high intensity
Coreg 12.5 mg twice daily changed to 6.25 mg twice daily
Discharge Plan
-
Patient Disposition: Acute Rehab Facility
Discharge Diagnosis/Procedures: CAD/CABG
Condition: Fair
Diet: Low Cholesterol and Low Sodium
Activity: No strenuous activity
Driving Restrictions: Not until seen by your Dr
Bathing Restrictions: OK to Shower
Others Tests: point of care glucose AC & HS
Other Services: Cardiac Rehab
Specialty Instructions: Weigh Daily- Call MD for wt gain/loss 3 lbs overnight/5 lbs in 1 week
Activity Restrictions/Additional Instructions:
Please call [facility] at [phone] upon DC from [facility]
Stand Alone Forms: DC Instructions- Cath/EP Lab
Referrals:
Srinivas Pagea [Other] - 01/08/24 11:30 am (Your Appointments on 12/05/23 and 12/21/23 have been cancelled. )
[facility] [Other] ( )
Almas Robins MD [Active] - 01/02/24 1:30 pm
Anne Marie Choi DO [Family Provider] - in four to six weeks (Please make an appointment in four to six weeks. )
Prescriptions:
New
ascorbic acid (vitamin C) 250 mg Tablet
250 mg PO DAILY Qty: 0 0RF
insulin aspart U-100 100 unit/mL (3 mL) Insulin Pen
5 unit SC AC Qty: 0 0RF
rosuvastatin 20 mg Tablet
20 mg PO DAILY Qty: 0 0RF
Insulin Glargine Lantus [Lantus] 10 UNITS
Subcutaneous Insulin Syringe [Syringe-Insulin] 0 UNIT
As Directed mls/hr SC HS
Reason for use: Diabetes
Ordered By: Maria L Reyna CRNP
Last Taken: 12/05/23 21:43 0.1 mls
carvedilol 6.25 mg Tablet
6.25 mg PO BID Qty: 0 0RF
hydralazine 25 mg Tablet
25 mg PO BID Qty: 0 0RF
pantoprazole 40 mg Tablet,Delayed Release (Dr/Ec)
40 mg PO DAILY Qty: 0 0RF
Centrum Adult 50 Plus 80 mcg tablet,chewable
1 tab PO DAILY Qty: 30 0RF
Continued
clopidogrel 75 mg Tablet
75 mg PO DAILY
acetaminophen [Tylenol Extra Strength] 500 mg Tablet
1,000 mg PO Q6HPRN PRN (Reason: mild pain)
aspirin 81 mg Tablet,Chewable
81 mg PO DAILY
Discontinued
nifedipine 30 mg Tablet Extended Release 24hr
30 mg PO HS
carvedilol 12.5 mg Tablet
12.5 mg PO BID
isosorbide mononitrate 60 mg Tablet Extended Release 24 Hr
60 mg PO DAILY
lisinopril 40 mg Tablet
40 mg PO DAILY
rosuvastatin 10 mg Tablet
10 mg PO DAILY
ranolazine 500 mg Tablet Extended Release 12 Hr
1,000 mg PO BID
metformin 1,000 mg Tablet
1,000 mg PO BID
Discharge Orders:
Discharge Patient (As Directed); Ordered 12/06/23
Ordered By: Maria L Reyna
Care Plan Goals
Care Plan Goals:
Problem: Readiness for enhanced knowledge related to diagnosis and treatment plan
Goal: Understand your diagnosis and treatment plan needs, including medications if applicable.
Instructions: Know your diagnosis, underlying causes and treatment plan options, including medications if applicable. Consult with your health care team to learn about your diagnosis and treatment plan, including medications if applicable.
Discharge Date and Time
Print Language: GREEK
--- NOTE | 2023-12-06 12:33 | PTCARENOTE ---
Assessment unchanged; NSR on monitor and VSS; family at bedside and pt eating lunch.
[2023-12-06] MEDS: APRESOLINE 10 MG PO (12:40)
--- NOTE | 2023-12-06 13:42 | W.PN.CD ---
Addendum entered and electronically signed by Davon Ibarra MD 12/06/23 14:09:
Re post device care:
- Do not soak incision site until after it is evaluated at cardiology clinic. OK to showers followed by dab dry the area. No baths or swimming until then. Sponge baths are OK.�
- Allow 'steri strips' to fall off on their own�
- Do not lift left elbow above shoulder, particularly with sudden jerking movements, for 1 month�
- Do not lift anything weighing more than 5 pounds with the left arm for 1 month�
Original Note:
Today's Communication / Plan
-
increase hydralazine to 25 bid which can be titrated as op
GDMT after full renal recovery
Impression / Plan
-
BACKGROUND: 78F with CAD, last stent 2019, ICM EF 40%, chronic systolic HF, NIDDM, HTN, HLD, and CKD3 with recent hospitalization at [facility] with HTN emergency, pulm edema, requiring intubation and diagnosis of possible Takotsubo CM presents with
weakness. She did not undergo cath. She was discharged home, and then presented to with weakness on 11/19. She was found to have an KELLIE and a mildly elevated troponin. Echo 11/20/23 showed EF 35-40%, global HK, mild/mod MR, nl RV, mild TR, PASP 35.
Then, on evening of 11/21, had episode of chest pain, which appears to be in setting of NSTEMI. She was reloaded with ASA, continued on Plavix; and started on heparin and nitro drips.
CAD/NSTEMI
-Status-post CABG x4 (HINDS to LAD, GSV to D2, GSV to OM1, GSV to RPDA) on 11/29/[address] Robins, pod #6.
-Continues to improve
-Previous PCI to RCA, LAD, and Circ in past; last 2019.
-On ASA
Complete heart block status-post CABG:
-Remains stable status-post ICD implantation.
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
Altered mental status:
- Resolved
- Head CT - negative for bleed
Acute HFrEF/ICM EF (30%):
-Coreg resumed
-Would hold off on restarting ACEI until Cr back to baseline of approx 1.5.
-can increase hydralazine to 25mg po bid and titrate as needed, will take a couple to days to reach steady state
-eventual sglt2i and MRA consideration as renal function improves
-lasix per nephrology
KELLIE on CKD3b
-Cr peaked at 2.5 post CABG now falling and 1.8. Baseline approx 1.5
-Continue to monitor; Nephrology following. Wt still up, agree with gentle diuresis
HTN
-Coreg resumed- would increase to 6.25 bid (home dose was 12.5 bid)
-Has device so no worry about bradycardia
-prn hydralazine appropriate now. We want to resume ACEI once Cr gets back to baseline
Type II DM
Subjective:
She is without complaint, anxious to go to [facility] where she has a bed
Physical Exam
Vital Signs/Labs
Vital Signs
Temp Pulse Resp BP Pulse Ox
98.0 F 70 15 184/93 97
12/06/23 12:00 12/06/23 12:30 12/06/23 12:00 12/06/23 12:13 12/06/23 12:13
12/05/23 12/06/23 12/07/23
06:59 06:59 06:59
Actual Weight 68.2 kg 66.8 kg
12/06/23 04:23
12/06/23 04:23
PT 18.7 Sec (11.4-14.6) H 11/29/23 14:56
INR 1.55 11/29/23 14:56
APTT 34.9 Sec (23.4-35.0) 11/29/23 14:56
Magnesium 2.3 mg/dl (1.6-2.3) 12/03/23 05:16
Triglycerides 113 mg/dl (10-149) 11/24/23 04:50
LDL Cholesterol, Calc 63 mg/dl 11/24/23 04:50
VLDL Cholesterol, Calc 22 mg/dl (0-30) 11/24/23 04:50
HDL Cholesterol 44 mg/dl 11/24/23 04:50
11/20/23 11/22/23 11/24/23
07:36 20:15 04:50
Sdu-J-Hkbdexdhcvp Pept 1140 1950 11473
Physical Exam
Constitutional: No acute distress
Cardiovascular: Rhythm & rate is regular, Pedal edema is absent, JVD pressure is normal, Systolic murmur absent and Diastolic murmur absent
Respiratory: Respiratory effort normal, Lungs clear to auscul., Wheeze Absent, Crackles Absent and Rhonchi Absent
Neuro/Psych: AO x 3
Data Reviewed
-
Date of Service: December 06, 2023
Medical Decision Making: Review of Case with other Provider (reviewed bp with CVICU BEHAVIOR SPECIALIST, increasing hydralazine)
EKG: Other
--- NOTE | 2023-12-06 14:05 | W.PN.UPDATE ---
Update Note
Progress Note Update
Chest tube sutures cut. Manual BP 160/76, HR 73-stable for DC to [facility]
--- NOTE | 2023-12-06 14:14 | PTCARENOTE ---
Pt transported to [facility] via stretcher; family at bedside; playground monitor and IV removed.
== END 2023-12-06 14:28 | DRG 233 ==
LOC: CVICU 19:57
PROVIDERS: Anesthesiology; Clinical Nurse Specialist Acute Care; Internal Medicine Cardiovascular Disease; Nurse Practitioner; Nurse Practitioner Family; Nurse Practitioner Gerontology; Nurse Practitioner Primary Care; Physician Assistant; Physician Assistant Medical; Specialist; ADMITTING PHYSICIAN Internal Medicine; ATTENDING PHYSICIAN Thoracic Surgery (Cardiothoracic Vascular Surgery); CONSULT PHYSICIAN Internal Medicine Cardiovascular Disease; CONSULT PHYSICIAN Internal Medicine Critical Care Medicine; CONSULT PHYSICIAN Internal Medicine Hematology & Oncology; CONSULT PHYSICIAN Physical Medicine & Rehabilitation; EMERGENCY PHYSICIAN Emergency Medicine; FAMILY PHYSICIAN Family Medicine; OTHER PHYSICIAN Student in an Organized Health Care Education/Training Program
PROC: 4A023N7 Measurement of Cardiac Sampling and Pressure, Left Heart, Percutaneous Approach (ICD-10-PCS; 2023-11-24)
PROC: B2111ZZ Fluoroscopy of Multiple Coronary Arteries using Low Osmolar Contrast (ICD-10-PCS; 2023-11-24)
PROC: 30233N1 Transfusion of Nonautologous Red Blood Cells into Peripheral Vein, Percutaneous Approach (ICD-10-PCS; 2023-11-28)
PROC: 021209W Bypass Coronary Artery, Three Arteries from Aorta with Autologous Venous Tissue, Open Approach (ICD-10-PCS; 2023-11-29)
PROC: 5A1221Z Performance of Cardiac Output, Continuous (ICD-10-PCS; 2023-11-29)
PROC: 30233R1 Transfusion of Nonautologous Platelets into Peripheral Vein, Percutaneous Approach (ICD-10-PCS; 2023-11-29)
PROC: 30233K1 Transfusion of Nonautologous Frozen Plasma into Peripheral Vein, Percutaneous Approach (ICD-10-PCS; 2023-11-29)
PROC: 02100Z9 Bypass Coronary Artery, One Artery from Left Internal Mammary, Open Approach (ICD-10-PCS; 2023-11-29)
PROC: B24BZZ4 Ultrasonography of Heart with Aorta, Transesophageal (ICD-10-PCS; 2023-11-29)
PROC: 06BP0ZZ Excision of Right Saphenous Vein, Open Approach (ICD-10-PCS; 2023-11-29)
PROC: 02HK3KZ Insertion of Defibrillator Lead into Right Ventricle, Percutaneous Approach (ICD-10-PCS; 2023-12-01)
PROC: 02H63KZ Insertion of Defibrillator Lead into Right Atrium, Percutaneous Approach (ICD-10-PCS; 2023-12-01)
PROC: 0JH608Z Insertion of Defibrillator Generator into Chest Subcutaneous Tissue and Fascia, Open Approach (ICD-10-PCS; 2023-12-01)
DX: I21.4 Non-ST elevation (NSTEMI) myocardial infarction (principal); G93.41 Metabolic encephalopathy; I50.43 Acute on chronic combined systolic (congestive) and diastolic (congestive) heart failure; J18.9 Pneumonia, unspecified organism; T81.11XA Postprocedural cardiogenic shock, initial encounter; N17.0 Acute kidney failure with tubular necrosis; J96.01 Acute respiratory failure with hypoxia; I13.0 Hypertensive heart and chronic kidney disease with heart failure and stage 1 through stage 4 chronic kidney disease, or unspecified chronic kidney disease; D62 Acute posthemorrhagic anemia; I44.2 Atrioventricular block, complete; T82.855A Stenosis of coronary artery stent, initial encounter; I16.1 Hypertensive emergency; J98.11 Atelectasis; D68.8 Other specified coagulation defects; E87.20 Acidosis, unspecified; E87.0 Hyperosmolality and hypernatremia; E78.00 Pure hypercholesterolemia, unspecified; E11.22 Type 2 diabetes mellitus with diabetic chronic kidney disease; I34.0 Nonrheumatic mitral (valve) insufficiency; N18.32 Chronic kidney disease, stage 3b; D63.1 Anemia in chronic kidney disease; I25.10 Atherosclerotic heart disease of native coronary artery without angina pectoris; Y83.2 Surgical operation with anastomosis, bypass or graft as the cause of abnormal reaction of the patient, or of later complication, without mention of misadventure at the time of the procedure; Y83.1 Surgical operation with implant of artificial internal device as the cause of abnormal reaction of the patient, or of later complication, without mention of misadventure at the time of the procedure; E87.5 Hyperkalemia; I25.5 Ischemic cardiomyopathy; K56.41 Fecal impaction; D63.8 Anemia in other chronic diseases classified elsewhere; E11.65 Type 2 diabetes mellitus with hyperglycemia; L89.151 Pressure ulcer of sacral region, stage 1; E04.1 Nontoxic single thyroid nodule; M41.9 Scoliosis, unspecified; N28.1 Cyst of kidney, acquired; K42.9 Umbilical hernia without obstruction or gangrene; M19.90 Unspecified osteoarthritis, unspecified site; R91.1 Solitary pulmonary nodule; Z79.02 Long term (current) use of antithrombotics/antiplatelets; Z79.82 Long term (current) use of aspirin; Z79.84 Long term (current) use of oral hypoglycemic drugs; Z79.899 Other long term (current) drug therapy; Z95.5 Presence of coronary angioplasty implant and graft; Z82.49 Family history of ischemic heart disease and other diseases of the circulatory system
CPT/HCPCS: 93308; 33249; 36600; 70450; 71045; 71046; 71250; 73630; 74176; 76775; 78582; 80048; 80053; 80061; 80076; 81003; 81015; 82010; 82140; 82330; 82533; 82565; 82570; 82607; 82728; 82746; 82805; 82810; 82947; 82962; 83036; 83540; 83550; 83605; 83735; 83880; 83935; 84132; 84145; 84300; 84302; 84443; 84484; 84520; 85014; 85018; 85025; 85027; 85045; 85049; 85379; 85384; 85610; 85730; 86704; 86705; 86706; 86708; 86709; 86803; 86850; 86900; 86901; 86920; 87340; 87641; 92526; 92610; 93005; 93306; 93312; 93320; 93325; 93880; 94002; 94003; 94640; 96374; 96375; 97112; 97163; 97164; 97166; 97168; 97530; 97535; 97761; 99285; A9540; A9567; C1721; C1777; C1892; C1898; J2260; J2916; P9016; P9045; P9047; P9059; P9073

== ENCOUNTER 2023-12-25 07:47 | Outpatient (RCR) | payer MEDICARE, SELFPAY | END 2023-12-25 23:59 | disposition home or self-care (01) | LOC: RPT 07:47 | PROVIDERS: ATTENDING PHYSICIAN Physical Medicine & Rehabilitation; FAMILY PHYSICIAN Family Medicine | DX: R26.2 Difficulty in walking, not elsewhere classified (principal); Z73.6 Limitation of activities due to disability | CPT/HCPCS: 97163; 97167 ==

== ENCOUNTER → 2024-01-02 13:56 | Outpatient (REF) | payer MEDICARE, SELFPAY | LOC: RAD 13:56 | PROVIDERS: ATTENDING PHYSICIAN Family Medicine | DX: I50.43 Acute on chronic combined systolic (congestive) and diastolic (congestive) heart failure (principal) | CPT/HCPCS: 71046 ==

== ENCOUNTER 2024-01-03 16:03 | Outpatient (RCR) | payer MEDICARE, SELFPAY | END 2024-01-03 23:59 | disposition home or self-care (01) | LOC: RPT 16:03 | PROVIDERS: ATTENDING PHYSICIAN Physical Medicine & Rehabilitation; FAMILY PHYSICIAN Family Medicine | DX: I21.4 Non-ST elevation (NSTEMI) myocardial infarction (principal); Z95.1 Presence of aortocoronary bypass graft; I44.2 Atrioventricular block, complete; I50.22 Chronic systolic (congestive) heart failure; Z95.810 Presence of automatic (implantable) cardiac defibrillator; R26.2 Difficulty in walking, not elsewhere classified; Z73.6 Limitation of activities due to disability | CPT/HCPCS: 97110; 97116; 97530 ==

== ENCOUNTER 2024-01-06 11:25 | Inpatient (IN) | payer MEDICARE, SELFPAY ==
[2024-01-06] VITALS (10 sets, daily range): BP systolic 119–143; BP diastolic 64–72
[2024-01-06 09:23] LABS: % Basophils 0.4 % (0-2); % Eosinophils 3.7 % (0-6); % Immature Granulocytes 0.5 % (0-0.5); % Lymphocytes 24.4 % (20.5-51.1); % Monocytes 6.7 % (1.7-9.3); % Neutrophils 64.3 % (42.2-75.2); Absolute Basophils 0.1 10^3/uL (0-0.2); Absolute Eosinophils 0.5 10^3/uL (0-0.7); Absolute Immature Granulocytes 0.1 10^3/uL (0-0.05); Absolute Lymphocytes 3.2 10^3/uL (1.2-3.4); Absolute Monocytes 0.9 10^3/uL (0.1-0.6); Absolute Neutrophils 8.5 10^3/uL (1.4-6.5); Hematocrit 24.9 % (37.0-47.0); Hemoglobin 8.1 g/dL (12.0-16.0); Mean Corp Hgb Conc. 32.5 g/dL (33.0-37.0); Mean Corpuscular Hgb 28.2 pg (27.0-31.0); Mean Corpuscular Volume 86.8 fL (81.0-99.0); Mean Platelet Volume 9.2 fL (7.4-10.4); Nucleated Red Blood Cells % 0 %; Platelet Count 368 10^3/uL (130-400); Red Blood Cell Count 2.87 10^6/uL (4.20-5.40); Red Cell Dist. Width 14.3 % (11.5-14.5); White Blood Cell Count 13.1 10^3/uL (4.8-10.8)
--- NOTE | 2024-01-06 09:37 | EDRN ---
Anterior chest wound, s/p CABG 11/29/23.
Anterior RLE wound, s/p CABG 11/29/23.
[2024-01-06 09:40] LABS: ALT (SGPT) 14 U/L (0-35); AST (SGOT) 24 U/L (14-36); Albumin 3.8 g/dl (3.5-5.0); Alkaline Phosphatase 57 U/L (38-126); Blood Urea Nitrogen 67 mg/dl (7-17); Calcium 9.8 mg/dl (8.4-10.2); Carbon Dioxide 23 mmol/L (22-30); Chloride 104 mmol/L (98-107); Glucose 138 mg/dl (70-99); Potassium 5.1 mmol/L (3.5-5.1); Sodium 141 mmol/L (135-145); Total Bilirubin 0.4 mg/dl (0.2-1.3); Total Protein 6.9 g/dl (6.3-8.2); eGFR 28.66
--- NOTE | 2024-01-06 13:24 | CONSULT.CT ---
Consultation
-
Date/Time Consultation Requested: 01/06/24 122
Date/Time Consultation Performed: 01/06/24 1220
Requesting Provider: Salazar BENTLEY
Performing Provider: Mariaa Alvares MD
Reason for Consultation: surgical site dehiscence
Patient History
Physicians
Family Physician: Anne Marie Choi
Outpatient Level Vial Inside Grinder: Kingsley Iverson
History of Present Illness
78 year old female with PMH of CAD stent 2018, ICM w/ EF 40%, chronic systolic HF, NIDDM, HTN, HLD, and CKD3, she initially presented to [facility] after a hospitalization at [facility] for hypertensive emergency, pulmonary edema
requiring intubation and possible Takotsubo's cardiomyopathy she was discharged home but presented to [facility] on 11/19 with an elevated troponin. Due to the NSTEMI, she was taken to the cardiac Feed Manager on which revealed multivessel disease
and was taken to the OR with Dr. Robins on 11/28 for a CABG x 4. Postoperatively it was complicated with complete heart block and patient received a dual-chamber AICD on 11/30.
After her stay, she was discharged with [facility] and was discharged home on 12/19. Today, she was with her daughter, Roxanne, at home. She was being assisted to the bathroom, however, she began to feel weak and Roxanne assisted her to the ground. There
was a setter up doing work at the house so while Roxanne was away, the patient scooted to her bed, which is about 10 feet away. Once she got to her bed, she was lifted onto the bed by the daughter and setter up. Afterwards, Roxanne noticed the blood and
called 911. EMS brought patient to the ER for evaluation.
Past Medical History
Past Medical History: Arrhythmias, CAD, CHF, GERD, HTN, Hypercholesterolemia, NIDDM, AL and SOB
CKD stage III
Past Surgical History
Coronary artery bypass x 4 on 11/28
AICD placement on 12/01/2023
Cholecystectomy
Dental History
Unknown
Family History
Mother: N/A
Father: N/A
Family Medical History: CAD
Social History
Alcohol: None
Drug: None
Tobacco: Non-Smoker
Personal: and Other (Patient has 7 daughters)
Living: With Family (Primary caregiver is daughter-Roxanne)
Employment: Retired
Allergies
Allergy/AdvReac Type Severity Reaction Status Date / Time
No Known Allergies Allergy Verified 01/06/24 09:03
Home Medications
�Medication �Instructions �Recorded �Confirmed �Type
acetaminophen 325 mg tablet 650 mg (2 x 325 mg) PO Q6HPRN PRN 12/19/23 Rx
mild pain #100 tabs
amlodipine 5 mg tablet 5 mg PO QPM #30 tabs 12/19/23 Rx
aspirin 81 mg chewable tablet 81 mg PO DAILY #30 tabs 12/19/23 Rx
blood sugar diagnostic (Blood #200 ea 12/19/23 Rx
Glucose Test strips)
carvedilol 12.5 mg tablet 12.5 mg PO BID #60 tabs 12/19/23 Rx
clopidogrel 75 mg tablet 75 mg PO DAILY #30 tabs 12/19/23 Rx
ferrous sulfate 325 mg (65 mg 325 mg PO NOON #30 tabs 12/19/23 Rx
iron) tablet (FeroSul)
furosemide 20 mg tablet 20 mg PO DAILY #30 tabs 12/19/23 Rx
hydralazine 50 mg tablet 50 mg PO TID@0800,1400,2000 30 12/19/23 Rx
days #90 tabs
insulin aspart U-100 100 unit/mL 4 unit (0.04 mL) SC AC #15 mL 12/19/23 Rx
(3 mL) subcutaneous pen
insulin detemir U-100 100 unit/mL 8 unit (0.08 mL) SC HS #15 mL 12/19/23 Rx
(3 mL) subcutaneous pen (Levemir
FlexPen)
lancets (Lancets,Ultra Thin) #200 ea 12/19/23 Rx
multivitamin with folic acid 400 1 tab PO NOON #30 tabs 12/19/23 Rx
mcg tablet (Tab-A-Danae)
pantoprazole 40 mg tablet,delayed 40 mg PO DAILY #30 tabs 12/19/23 Rx
release
pen needle, diabetic 32 gauge x #200 ea 12/19/23 Rx
532' (BD Ultra-Fine Sarai Pen
Needle)
rosuvastatin 20 mg tablet 20 mg PO QPM #30 tabs 12/19/23 Rx
Review of Systems
-
Unable to obtain full review of systems at this time due to: Acuity
History Source: Patient and Family
General: Reports Weight Loss and Fatigue
HEENT: Reports No Symptoms
Respiratory: Reports SOB
Cardiac: Reports Edema
Abdomen/GI: Reports No Symptoms
: Reports Dysuria
Musculoskeletal: Reports No Symptoms
Skin: Reports No Symptoms
Neurological: Reports Weakness
Vascular: Reports No Symptoms
Physical Exam
Vital Signs
Temp 98.2 F 01/06/24 12:58
Temp route: Oral 01/06/24 12:58
Pulse 70 01/06/24 12:00
Resp Rate 18 01/06/24 12:58
Blood pressure 136/68 01/06/24 12:00
Blood pressure extremity used: Right upper arm 01/06/24 12:58
Position: Lying 01/06/24 12:58
MAP (cuff-Perfecto Monitor) 89 01/06/24 12:00
SaO2 96 01/06/24 12:58
Oxygen Mode of Delivery Room air 01/06/24 12:58
Actual Weight 67.5 kg 01/06/24 08:55
Labs
01/06/24 09:04
01/06/24 09:04
Exam
General: No Apparent Distress, Pain and Poor Appetite
HEENT: Moist Mucous Membranes
Respiratory: Clear
Cardiac: S1/S2 and Calf Tenderness
GI: Soft
Rectal: Deferred by Provider
Skin: Warm, Dry and Other (Dehiscence of right lower extremity graft site and midsternal incision)
Neuro: AO x 3 and Other (Lethargic)
Extremities: Lower Level Edema and Other
Psych: Calm
Assessment / Plan
-
78-year-old female with past medical history above presents to the ER on 01/05 after an episode of weakness and being lowered to the ground was found to have surgical site dehiscence and was brought to the ER for wound evaluation.
#Wound dehiscence (mechanical)
- s/p Chest CT to evaluate sternum
- Midsternal incision was thoroughly cleaned and irrigated with sterile water and CHG. Wound VAC was applied.
- Right lower extremity harvest site was thoroughly cleansed and irrigated with sterile water and CHG. Aquacel was applied.
- Monitor for fevers and other signs of infection
- Trend WBCs
- Strict sternal precautions
- Consult wound care
#CAD s/p CABG x4
-Continue aspirin and Plavix
#Chronic Anemia
- Monitor CBC
#Thyroid Nodules
- incidental finding of CT scan
-T/C Thyroid work up
--- NOTE | 2024-01-06 13:46 | W.PN.UPDATE ---
Update Note
Progress Note Update
I personally performed a history and physical exam of the patient and discussed management with the resident. I reviewed the resident's note and agree with the documented findings and plan of care HPI/CC.
Patient is 78F with past medical history of coronary disease status post bypass x4 on 11/28, ischemic cardiomyopathy, chronic systolic congestive heart failure, CKD stage IIIB, hyperlipidemia, history of complete heart block, history of ICD
placement, type 2 diabetes, pulmonary nodule, chronic anemia, right foot drop was brought to ER after patient was noticed to having chest and right leg surgical site incision opening up with some bleeding. Patient not very forthcoming with
information and daughter providing information at bedside. According to daughter patient was trying to get up from floor versus chair? And was using both upper arm to support herself causing tension on chest muscle. Soon after it was noted that
patient chest incision was opened with patient having bleeding from the site. Patient also noted to having some bleeding at the right leg vein donor site. Patient daughter emphatically denies of patient having any slip/mechanical fall.
Patient was seen by cardiothoracic surgery PA in the ER and was placed on chest wound vac. Right leg wound was dressed.
Patient did not have any palpitations/chest discomfort/dizziness/syncope. No GI or complaints.
HEENT: No pallor, cyanosis, or jaundice. Throat clear.
NECK: Supple. No JVD.
RESPIRATORY: Midsternal surgical site wound vac in place.
CVS: S1, S2 normal. RRR. No murmur, rub or gallop.
ABDOMEN: Soft, non-tender. No distension. BS+/normal.
EXTREMITIES: No peripheral cyanosis or edema.
SALES AND LEASING CONSULTANT: AOx3. No focal deficits.
Surgical wound dehiscence - mechanical in nature
At Sternotomy site and Right leg vein donor site
-Patient was trying to get up from chair? with using both hand to support herself and causing tension on the incision site
-Noted to have new fresh bleeding from the chest and right leg wound site
-ID evaluated and no indication of prophylactic antibiotics
-CTS PA put a wound vac on chest , further management per CTS.
-Right leg wound dressing placed by CTS as well
CAD sp CABG x4
Ischemic cardiomyopathy
-Maintain on asa/plavix/statin home regimen
Chronic systolic CHF
s/p ICD placement
-SUPRIYA showing EF 35-40%, Stage I diastolic dysfunction
-Oral lasix 20mg/d, continue for now.
IDDM
-Maintain on Levemir 8U HS and Novolog 4U AC
-ISS mild
HLD
-Maintain on rosuvastatin
GERD
-Continue on pantoprazole
DVT PPX - Lovenox
Full code
Total time spent : 77 mins
I personally saw and examined the patient.
I have reviewed all diagnostic interpretations and treatment plans as written.
Time includes patient management by me, time spent at the patients bedside, time to review lab and imaging results, discussing patient care, documentation in the medical record, and time spent with the family or caregiver and discussing care plan
with RN/Consultants.
--- NOTE | 2024-01-06 13:52 | ED.GENMED ---
History of Present Illness
General
Chief Complaint: Skin Surface Trauma
Source: patient
Exam Limitations: none
Time Seen by Provider: 01/06/24 08:55
Nursing documentation reviewed up to this point in time: agreed with
History of Present Illness
History of Present Illness:
78 yo female presents to the emergency department complaining of her chest incision opening and bleeding. She was falling to the ground, and was lowered to the floor, and then pulled up by her arms. Her chest incision open. Her right lower leg
incision also open.
Past History
Past History
ED Past Medical History: CAD, CHF and HTN
ED Past Surgical History: Cardiac (CABG)
Social History
Tobacco: Non-smoker
Alcohol: None
Drug: None
Personal:
Living: with family
Review of Systems
Review of Systems
Allergies reviewed?: Yes
All Other Systems: Not applicable
Constitutional: Reports no symptoms
EENT: Reports no symptoms
Respiratory: Reports no symptoms
Cardiac: Reports no symptoms
ABD/GI: Reports no symptoms
: Reports no symptoms
Musculoskeletal: Reports no symptoms
Skin: Reports other (Chest pain open, right leg wound open)
Neurological: Reports no symptoms
Endocrine: Reports no symptoms
Hematologic/Lymphatic: Reports no symptoms
Psychiatric: Reports no symptoms
Phy Exam
Physical Exam
Physical Exam:
Physical Exam
General: no apparent distress, not acutely ill
Neck: supple. no meningeal signs. normal posterior pharynx
Heart: s1/s2 regular rate and rhythm, no murmur. equal radial
pulses. Dehiscence of midline sternotomy wound
HEENT: Pupils equal round reactive to light, EOMI
Lungs: no acute respiratory distress. clear bilaterally
Abdomen: normal bowel sounds. not tender. no CVAT
Neuro: alert and oriented. no focal neurological deficits cranial nerves II through XII intact
Skin: no rash
Psychiatric: well kept. interactive and cooperative
Extremities: no edema. no calf tenderness. negative homans. good distal pulses dehiscence of right lower leg vein graft wound
Course
Orders/Labs/Results
Orders:
Orders
01/06/24 08:55
IV Insert/Care/Rem.- Treatment PRN
01/06/24 09:04
Type+Screen Urgent
Complete Blood Count/With Diff Urgent
Comprehensive Metabolic Panel Urgent
Prealbumin (Transthyretin) Urgent
01/06/24 09:05
CT Chest W/o Iv Contrast Urgent
Comment:
Reason For Exam: sternotomy scar open
Nursing to Place Non Medication Order As Directed
Physician Order: surgical bra, moist to dry dressing
Above order entered?: Yes
01/06/24 Lunch
Cholesterol Lowering
At Your Request: Full Participation
Cholesterol Lowering: Sodium, 2 Gram
01/06/24 11:11
Wound Care As Directed
Location of Wound: RLE
Treatment of Wound: aquacell
Wound Vac Therapy [Negative Pressure Wound Therapy] As Directed
Location of wound:: mid chest
Foam to be used:: Black Foam
Instructions:: Change every 48 - 72 hours (i. e. Ovanwjc-Lsdhyvefdv-Hmrzyru) and prn if unable to obtain
a seal. Low Intensity, Continuous at 125 mmHg. Upon discharge or transfer to another
facility, remove VAC foam and apply NS moistened gauze dressing unless home VAC unit
available.
01/06/24 11:12
Admit/Transfer Patient As Directed
Co-Sign Provider:
Level of Care: Inpatient admission
Assign to:: IVU
Physician / Group: Marco Lincoln
Diagnosis: Sternotomy dehischence, Right leg venous graft dehiscence
Reason for Hospitalization: Sternotomy dehischence, Right leg venous graft dehiscence
Expected length of stay greater than two midnights?: Yes
ELOS- Estimated Length of Stay in days: 2
I certify the patient meets the requirements for IP care: Yes
PRN Pain Medication Management As Directed
May give lesser potent ordered pain med per pt: Yes
preference::
Protocol:: Medication orders for pain may be administered in a
manner that supports deferring to patient preference
when the pt is:
- Requesting an ordered lesser potent pain medication.
Least to most potent pain medications are defined
as: acetaminophen < NSAID < tramadol < opioids
(morphine, oxycodone, hydromorphone).
- Requesting a lesser dose of the same medication IF
ORDERED.
- Requesting a less intrusive route of administration
if both routes are prescribed by the provider (PO <
IV).
01/06/24 11:14
Code Status As Directed
Resuscitation Status: Full Code
01/06/24 12:21
Acetaminophen [Tylenol] 650 mg PO Q4HPRN PRN
Bisacodyl [Dulcolax] 10 mg RECTAL [id number] PRN
Dextrose 50%-Water [Dextrose 50% Syringe] 12.5 grams IV [id number] PRN
Docusate W/Senna [Senokot-S] 1 tablet PO BIDPRN PRN
Ferrous Sulfate [Feosol] 325 mg PO NOON
Glucagon [GlucaGen] 1 mg IM PRN PRN
Insulin Aspart Corrective Low [Novolog Flexpen-Low Resistance] See Protocol SC AC
Insulin Aspart Pen [Novolog Flexpen] 4 units SC AC
Ondansetron Injectable [Zofran] 4 mg IV Q6HPRN PRN
Polyethylene Glycol Powder [Miralax] 17 grams PO DAILYPRN PRN
01/06/24 12:21
Consult Infectious Disease [INFECTIOUS DISEASE CONSULT] Routine
Consulting Provider: Matt Devine
Was physician already notified: Yes
Reason for consult: surgical site infection
Activity As Directed
Activity Level: With Assistance
Bedside Glucose Monitoring As Directed
Frequency: AC&HS
Additional Instructions:: Change to q6h if pt on TPN, tube feeding or not eating
Vital Signs As Directed
Frequency: Per unit guidelines
DX Deep Vein Thrombosis Video Routine
01/06/24 14:00
HydrALAZINE [Apresoline] 50 mg PO TID@0800,1400,2000
01/06/24 18:00
Amlodipine [Norvasc] 5 mg PO QPM
Enoxaparin Sodium [Lovenox] 40 mg SC QPM
Rosuvastatin Calcium [Crestor] 20 mg PO QPM
01/06/24 22:00
insulin detemir U-100 [Levemir FlexPen] 8 unit SC HS
01/07/24 06:00
Basic Metabolic Panel IN AM
Complete Blood Count/No Diff IN AM
01/07/24 08:00
Aspirin Chewable [Low Strength Aspirin] 81 mg PO DAILY
Clopidogrel Bisulfate [Plavix] 75 mg PO DAILY
Furosemide [Lasix] 20 mg PO DAILY
Pantoprazole [Protonix] 40 mg PO DAILY
01/08/24 06:00
Basic Metabolic Panel IN AM
Complete Blood Count/No Diff IN AM
Abnormal Lab Results
01/06/24
09:04
WBC 13.1 H 10^3/uL
(4.8-10.8)
RBC 2.87 L 10^6/uL
(4.20-5.40)
Hgb 8.1 L g/dL
(12.0-16.0)
Hct 24.9 L %
(37.0-47.0)
MCHC 32.5 L g/dL
(33.0-37.0)
Abs Immat Gran (auto) 0.1 H 10^3/uL
(0-0.05)
Absolute Neuts (auto) 8.5 H 10^3/uL
(1.4-6.5)
Absolute Monos (auto) 0.9 H 10^3/uL
(0.1-0.6)
BUN 67 H mg/dl
(7-17)
Creatinine 1.8 H mg/dL
(0.6-1.0)
Glucose 138 H mg/dl
(70-99)
01/06/24 09:04
01/06/24 09:04
Vital Signs
Initial and Last Documented VS:
Initial Vital Signs
BP
119/66
01/06/24 08:55
Last Documented Vital Signs
Temp Pulse Resp BP Pulse Ox
98.2 F 70 18 136/68 96
01/06/24 12:58 01/06/24 12:00 01/06/24 12:58 01/06/24 12:00 01/06/24 12:58
MDM/Problems Addressed
Differential Diagnosis Includes:
Sternotomy dehiscence, wound dehiscence
MDM/Problems Addressed:
78-year-old female with sternotomy wound dehiscence. Admit to hospitalist, general surgery placed wound VAC.
Chronic conditions affecting care: CAD and Cardiomyopathy
Acute Exacerbation and/or Progression of Chronic Illness: CAD and Cardiomyopathy
*Radiology
Radiology exam reviewed: radiology read reviewed (CT chest shows median sternotomy with open wound, but no abscess)
*Pulse Oximetry
Patient hypoxic: no
*Critical Care Note
Total Time (30-74mins, 75-104mins- exclusive of procedures): Not Applicable
Data Reviewed
Review of Other/Old Records Reveals: Operative Reports (CABG x [address] Almas Robins on 11/29/23)
Source: records
Patient Management
Social determinants of health affecting care: Living situation
Discussion with other providers: Hospitalist and Environment Friendly Landscape Designer (CT surgery Dr. Alvares)
Escalation/DeEscalation of care consider admission/obs:
admit indicated
ED Attending Note
-
Portions of this chart may have been created with voice recognition software.� Occasional wrong word or��sound alike� substitutions may have occurred due to the inherent limitations of voice recognition software.
Discharge Plan
Departure
Patient Disposition: Admit
Date of Disposition: 01/06/24
Time of Disposition: 09:54
Admit to: IVU
Presentation/result/management discussed w/ accepting MD/DO: Hospitalist
Patient with high blood pressure during this ER visit?: Yes
Condition: Fair
Discharge Problem:
Sternal wound dehiscence, CKD (chronic kidney disease), Anemia
Interventions
Interventions:
*Risk Screen - Suicide Last Done: 01/06/24 08:56
*General Assessment Last Done: 01/06/24 08:56
*Neglect/Abuse Screening Last Done: 01/06/24 08:56
ED- Fall Risk Assessment Last Done: 01/06/24 09:57
*ED COVID-19 Vaccine History Last Done: 01/06/24 08:56
*Nursing Disposition Last Done: 01/06/24 12:12
ED-Skin Assessment Last Done: 01/06/24 09:57
Discharge Date and Time
Discharge Date/Time: 01/06/24 12:14
[2024-01-06 14:13] LABS: Prealbumin (Transthyretin) 16.9 mg/dl (17.6-36.0)
--- NOTE | 2024-01-06 14:14 | CON.ID ---
Consultation
-
Date/Time Consultation Requested: 01/06/2024 1221
Date/Time Consultation Performed: 01/06/2024 1330
Requesting Provider: Dr. Lincoln
Performing Provider: Dr. Devine
Reason for Consultation: Sternal wound; left leg wound
Chief Complaint / Past History
History of Present Illness
Evelyn Baxter is a 78-year-old female being evaluated at the request of Dr. Lincoln in regards to a sternal wound, along with a right leg wound. History is obtained from chart review, along with patient interview.
According to reviewed notes, the patient presented to [facility] on 11/23/2023 for weakness and fatigue. During that hospitalization she developed chest pain, and ultimately underwent coronary artery bypass on 11/28. She was admitted to
rehab 12/05 through 12/23, and thereafter was discharged to home. She is looked after closely by her daughters. She overall was feeling better and has been doing cardiac rehab. This a.m. when she was in the bathroom she developed the acute onset of
weakness and was lowered to the floor by her daughter. When attempting to get back into her chair she proceeded to develop dehiscence of both her sternal wound, and her right lower extremity graft harvest site incision.
She notes that she has been followed closely by CT surgery as an outpatient. She was previously on a course of antibiotics for small area of erythema on the distal portion of the right lower extremity, which she completed those antibiotics earlier
this week. At present, she denied any redness or erythema around the wound sites.
Past History
Additional Past Medical History:
HTN
Dyslipidemia
CAD
DM
CKD
Additional Past Surgical History:
CABG
Cholecystectomy
PPM placement
Allergy History:
No Known Allergies Allergy (Verified 01/06/24 09:03)
Medications Reviewed: Yes
Current Antibiotics:
None
Social History
Tobacco: Non-Smoker
Alcohol: None
Drug: None
Living: With Family
Employment: Retired
Family History
Family History: Not Pertinent
Review of Systems
Vital Signs
Temp Pulse Resp BP Pulse Ox
98.2 F 70 18 136/68 96
01/06/24 12:58 01/06/24 12:00 01/06/24 12:58 01/06/24 12:00 01/06/24 12:58
Physical Exam
Physical Exam
Constitutional: No Acute Distress, Comfortable and Non-toxic
Eyes: No Conjunctival Hemorrhage and Sclera Anicteric
Pharynx: Benign
Oral: No Thrush and No Ulcers
Cardiovascular: Regular Rate and S1/S2; Negative S3/S4
Pulmonary: Clear; Negative Wheezes, Rales or Rhonchi
Gastrointestinal: Soft, Non Tender and Non Distended
Extremities: Edema; Negative Erythema or Splinter Hemorrhage
Musculoskeletal: Negative Joint Swelling or Joint Effusion
Skin: Other (Sternal wound with dehiscence, but no periwound erythema. No purulence. No evidence of infection. Right leg graft harvest site with dehiscence, but no periwound erythema or purulence.)
Neurological: Awake, Alert and AO x 3
Psychological: Calm
.
Lab / Diagnostic Study Results
01/06/24 09:04
01/06/24 09:04
Abs Immat Gran (auto) 0.1 10^3/uL (0-0.05) H 01/06/24 09:04
Absolute Neuts (auto) 8.5 10^3/uL (1.4-6.5) H 01/06/24 09:04
Absolute Lymphs (auto) 3.2 10^3/uL (1.2-3.4) 01/06/24 09:04
Absolute Monos (auto) 0.9 10^3/uL (0.1-0.6) H 01/06/24 09:04
Absolute Basos (auto) 0.1 10^3/uL (0-0.2) 01/06/24 09:04
Immature Gran % 0.5 % (0-0.5) 01/06/24 09:04
Neutrophils % 64.3 % (42.2-75.2) 01/06/24 09:04
Lymphocytes % 24.4 % (20.5-51.1) 01/06/24 09:04
Monocytes % 6.7 % (1.7-9.3) 01/06/24 09:04
Eosinophils % 3.7 % (0-6) 01/06/24 09:04
Basophils % 0.4 % (0-2) 01/06/24 09:04
Microbiology Results
Imaging:
01/06/2024 CT chest without contrast: There is median sternotomy with wire sternal sutures with open wound at the skin surface and subcutaneous emphysema but no abscess
Assessment / Plan
Sternal wound dehiscence
Right lower extremity graft harvest site dehiscence
- No evidence of infection in either area
Leukocytosis
- Suspect reactive
HTN
Dyslipidemia
CAD
DM
CKD
Recommendations:
At present, neither the sternal wound nor the right lower extremity wound appear infected.
Agree with initiation of VAC therapy to the sternal wound which will assist in healing.
The right lower extremity is noted to have some degree of edema which may impede overall wound healing.
Would continue with local care to the wound, with the addition of Tubigrip's to decrease edema.
Care Review
Plan reviewed with: Physician (CT Surgery; Hospitalist)
--- NOTE | 2024-01-06 14:19 | PTCARENOTE ---
received pt from ed, wound vac in place. pt offers no complaints at this time. pt is sr on the monitor, hr in the 60s, vss. pt resting with family at bedside. pt and family educated on plan of care and pt verbalized understanding. call dacosta within
reach.
[2024-01-06] MEDS: FEOSOL 325 MG PO (15:58)
[2024-01-06] MEDS: APRESOLINE 50 MG PO ×2 (15:58→19:49)
[2024-01-06] MEDS: TYLENOL 650 MG PO ×2 (16:01→22:16)
[2024-01-06 16:51] LABS: Glucose - Point of Care 211 mg/dl (70-99)
[2024-01-06] MEDS: NOVOLOG FLEXPEN SC (17:11)
[2024-01-06] MEDS: NOVOLOG FLEXPEN 4 UNITS SC (17:12)
[2024-01-06] MEDS: NOVOLOG FLEXPEN-LOW RESISTANCE SC (17:12)
[2024-01-06] MEDS: NOVOLOG FLEXPEN-LOW RESISTANCE 2 UNITS SC (17:13)
[2024-01-06] MEDS: LOVENOX 30 MG SC (17:13)
[2024-01-06] MEDS: CRESTOR 20 MG PO (17:14)
[2024-01-06] MEDS: NORVASC 5 MG PO (17:14)
--- NOTE | 2024-01-06 17:32 | PTCARENOTE ---
pt continues to be sr on the monitor, hr in the 70s, vss. pt c/o of pain in sternum and right lower leg. Tylenol given as ordered see documentation. pt resting in bed comfortably with family at bedside. wound vac connected and draining sanguineous
drainage. pt educated on plan of care and pt verbalized understanding. call dacosta within reach.
--- NOTE | 2024-01-06 17:38 | HPS.HSE ---
Family Physician
-
Family Physician: Anne Marie Choi
Chief Complaint
-
opening of surgical wound closure
History of Present Illness
A 78 year old female with PMH of chronic systolic heart failure, HTN, HLD, CKDx3, DM, presents to the ED because she had a surgical site wound re-opened. on 11/29/2023, she underwent a 4 vessel CABG. Post surgery, she was healing well, with no fever,
pain in the affected site, discharge, bleeding, foul odour from the affected site. Pts daughter states that this morning while she was trying to get up from the toilet, she grabbed onto the rail next to her toilet and noticed bleeding coming from
her shirt. She believes this mechanical exertion of force caused her surgical site wound closure to reopen. Her right leg surgical site they used as a graft for the CABG is also reopened and is activley bleeding. She was then admitted to the ED soon
after by her daughter. Cardiac surgery placed a wound vac on the on her chest wound.
Medical History
Past Medical History
Past Medical History: Reports CHF, HTN, Hypercholesterolemia, IDDM and Other (CABG, CKD)
Past Surgical History: Reports Other (CABG)
Social History
Tobacco: Non-smoker
Alcohol: None
Drug: None
Living: Alone
Family History
Family History: Not pertinent
Allergies / Home Medications
Allergies reflects when Allergies were last updated in [employer].
Home Medications with original date entered in [employer]
Allergy/Medication List:
Allergies
Allergy/AdvReac Type Severity Reaction Status Date / Time
No Known Allergies Allergy Verified 01/06/24 09:03
Home Medications
acetaminophen 325 mg tablet 650 mg (2 x 325 mg) PO Q6HPRN PRN mild pain #100 tabs 12/19/23
amlodipine 5 mg tablet 5 mg PO QPM #30 tabs 12/19/23
aspirin 81 mg chewable tablet 81 mg PO DAILY #30 tabs 12/19/23
blood sugar diagnostic (Blood Glucose Test strips) #200 ea 12/19/23
carvedilol 12.5 mg tablet 12.5 mg PO BID #60 tabs 12/19/23
clopidogrel 75 mg tablet 75 mg PO DAILY #30 tabs 12/19/23
ferrous sulfate 325 mg (65 mg iron) tablet (FeroSul) 325 mg PO NOON #30 tabs 12/19/23
furosemide 20 mg tablet 20 mg PO DAILY #30 tabs 12/19/23
hydralazine 50 mg tablet 50 mg PO TID@0800,1400,2000 30 days #90 tabs 12/19/23
insulin aspart U-100 100 unit/mL (3 mL) subcutaneous pen 4 unit (0.04 mL) SC AC #15 mL 12/19/23
insulin detemir U-100 100 unit/mL (3 mL) subcutaneous pen (Levemir FlexPen) 8 unit (0.08 mL) SC HS #15 mL 12/19/23
lancets (Lancets,Ultra Thin) #200 ea 12/19/23
multivitamin with folic acid 400 mcg tablet (Tab-A-Danae) 1 tab PO NOON #30 tabs 12/19/23
pantoprazole 40 mg tablet,delayed release 40 mg PO DAILY #30 tabs 12/19/23
pen needle, diabetic 32 gauge x 5/32' (BD Ultra-Fine Sarai Pen Needle) #200 ea 12/19/23
rosuvastatin 20 mg tablet 20 mg PO QPM #30 tabs 12/19/23
Review of Systems
-
History Source: Patient and Family
Constitutional: Reports No Symptoms
Respiratory: Reports No Symptoms
Abdomen/GI: Reports No Symptoms
Skin: Reports No Symptoms
Physical Exam
Vital Signs
Vital Signs
Temp Pulse Resp BP Pulse Ox
98.2 F 69 18 131/69 97
01/06/24 15:38 01/06/24 15:58 01/06/24 15:38 01/06/24 15:58 01/06/24 15:38
Physical Exam
General: Well Developed and Well Nourished
HEENT: NormoCephalic and Anicteric
Respiratory: Clear
GI: Soft, Non Tender and Non Distended
Skin: Other (There is open right leg wound and open wound overlying the sternum currently covered by a wound vac )
Neuro: Awake and Alert
Psych: Calm
Laboratory Results
-
01/06/24 09:04
01/06/24 09:04
Laboratory Results
Total Bilirubin 0.4 mg/dl (0.2-1.3) 01/06/24 09:04
AST 24 U/L (14-36) 01/06/24 09:04
ALT 14 U/L (0-35) 01/06/24 09:04
Alkaline Phosphatase 57 U/L (38-126) 01/06/24 09:04
Data Reviewed
-
Medical Tests (Nuc Med, Echo, EKG etc): Image Personally Visualized and interpreted
Lab Data: Labs Reviewed by me and Discussed with Physician
Impression/Plan
-
IMPRESSION:
PLAN:
Surgical wound dehiscence
Right leg graft donor site
-Patients daughter states she was getting up from toilet on the floor using hand to prop herself up and yoseph to the mechanical tension, this opened up the wound
-There is a open wound on the sternum covered by a wound vac, another open wound on the right leg where which was previously used a graft area for her CABG site
-ID consulted (01/05)- Would continue with local care to the wound, with the addition of Tubigrip's to decrease right lower leg edema which can impede healing, no active indications for an infection so presently antibiotics are not required
- WBC 13.1 but this is likely reactive
-Cardiothoracic PA put a wound vac on chest and dressed the right leg wound , further management per CTS.
- orthostatic vitals in the AM ordered
CAD sp CABG x4
-Maintain on asa/plavix/statin home regimen
Chronic systolic CHF
-Oral lasix 20mg/d, continue for now.
IDDM
-Maintain on Levemir 8U HS and Novolog 4U AC
- her glucose level is 138 (01/05). Daughter states that normally its between 100-130.
HLD
-continue rosuvastatin
GERD
-Continue pantoprazole
--- NOTE | 2024-01-06 19:12 | PTCARENOTE ---
Pt. received at change of shift. Daughter at bedside. Pt. AOx3, tele reading NSR w right bundle branch block. Wound vac checked, attached to sternotomy. Right leg wound covered with aquacell. No complaints at this time. Continuing to monitor the pt
at this time.
[2024-01-06] MEDS: COREG 12.5 MG PO (19:50)
[2024-01-06] MEDS: ROXICODONE 5 MG PO (21:24)
[2024-01-06 22:14] LABS: Glucose - Point of Care 208 mg/dl (70-99)
[2024-01-06] MEDS: LANTUS 0.08 UNITS SC (22:17)
[2024-01-06] MEDS: NEURONTIN 300 MG PO (22:41)
--- NOTE | 2024-01-06 22:47 | PTCARENOTE ---
Around 2119, pt. complained of 8/10 sternotomy site, along with left foot pain. Discussed with LULU, patient was given 5mg oxycodone. Pt. reassessed one hour later, pt. still complaining of 8/10 pain. PRN tylenol given. Pt. and daughter both
informed RN she takes 300mg gabapentin HS and had not gotten one tonight. CNC SUPERVISOR notified, gabapentin added to med list and given to pt. Pain to be reassessed at 2315. Wound vac seen by LULU, properly functioning. Continuing to monitor the patient at
this time.
[2024-01-07] VITALS (8 sets, daily range): BP systolic 134–172; BP diastolic 61–88
--- NOTE | 2024-01-07 00:27 | PTCARENOTE ---
Wound vac intermittently alarming throughout night. Alarm reading potential blockage. PORTFOLIO LEAD notified, sending down two CVICU RNs to assess the problem. CVICU RNs trying to reinforce any leakage with tegaderm. Daughter at bedside. I explained to the
daughter that per the order we are able to redress the black foam and enforce the area with tegaderm. Daughter states 'no, it doesn't look like the nurses know like they know what they're doing, I will wait for the doctor in the morning'. Pt.
telling daughter to leave, but the daughter refused. Pt. not in any pain or distress at this time. Wound vac still suctioning. Continuing to monitor at this time.
--- NOTE | 2024-01-07 00:55 | PTCARENOTE ---
Wound vac still alarming blockage. RN tried educating daughter about a potential dressing change. Daughter refusing. HELP DESK OPERATOR notified to talk to daughter, HELP DESK OPERATOR states to wait for wound care to redress site in the morning. Continuing to monitor the pt.
at this time.
[2024-01-07] MEDS: ROXICODONE 5 MG PO ×2 (01:33→08:44)
[2024-01-07] MEDS: LIDOCAINE 4% PATCH 2 PATCH TOPICAL ×2 (02:06→15:09)
[2024-01-07 05:29] LABS: Hematocrit 22.3 % (37.0-47.0); Hemoglobin 7.5 g/dL (12.0-16.0); Mean Corp Hgb Conc. 33.6 g/dL (33.0-37.0); Mean Corpuscular Hgb 28.7 pg (27.0-31.0); Mean Corpuscular Volume 85.4 fL (81.0-99.0); Mean Platelet Volume 9.1 fL (7.4-10.4); Platelet Count 367 10^3/uL (130-400); Red Blood Cell Count 2.61 10^6/uL (4.20-5.40); Red Cell Dist. Width 14.4 % (11.5-14.5); White Blood Cell Count 13.9 10^3/uL (4.8-10.8)
[2024-01-07 05:54] LABS: Blood Urea Nitrogen 74 mg/dl (7-17); Calcium 9.5 mg/dl (8.4-10.2); Carbon Dioxide 22 mmol/L (22-30); Chloride 105 mmol/L (98-107); Glucose 136 mg/dl (70-99); Sodium 142 mmol/L (135-145); eGFR 28.66
[2024-01-07 08:30] LABS: Glucose - Point of Care 124 mg/dl (70-99)
[2024-01-07] MEDS: NOVOLOG FLEXPEN-LOW RESISTANCE SC (08:43)
[2024-01-07] MEDS: PROTONIX 40 MG PO (08:44)
[2024-01-07] MEDS: APRESOLINE 50 MG PO ×3 (08:45→20:08)
[2024-01-07] MEDS: PLAVIX 75 MG PO (08:45)
[2024-01-07] MEDS: TYLENOL 650 MG PO (08:45)
[2024-01-07] MEDS: LASIX 20 MG PO (08:46)
[2024-01-07] MEDS: VITAMIN C 500 MG PO (08:46)
[2024-01-07] MEDS: COREG 12.5 MG PO ×2 (08:46→20:09)
[2024-01-07] MEDS: LOW STRENGTH ASPIRIN 81 MG PO (08:46)
[2024-01-07] MEDS: NOVOLOG FLEXPEN SC ×3 (09:00→18:11)
[2024-01-07 11:40] LABS: Glucose - Point of Care 182 mg/dl (70-99)
[2024-01-07] MEDS: NOVOLOG FLEXPEN-LOW RESISTANCE 1 UNITS SC ×2 (11:42→18:10)
--- NOTE | 2024-01-07 13:06 | PTCARENOTE ---
Sternal wound redressed and wound vac. replaced by BLANCA Oleary. New surgical bra and abdominal binder on pt. Pt tolerated wound change, very sleepy, pt's family reported that she did not sleep well last night, also that she does better with
tramadol than oxycodone. Pt has low grade temp of 100.1, Dr Valero aware. Plan to enforce strict sternal precautions to limit arm movement, no ECG electrodes to be placed on wound dressing to maintain integrity and suction.
[2024-01-07 14:04] LABS: Free T4 1.21 ng/dl (0.78-2.19)
--- NOTE | 2024-01-07 14:22 | W.PN.HOSP.TC ---
Addendum entered and electronically signed by Marco Lincoln MD 01/07/24 15:22:
I saw and evaluated the patient. I reviewed the resident�s note and agree with findings and plan as documented in the resident�s note.
1. Surgical wound dehiscence at sternotomy/right leg donor site -secondary to mechanical separation while patient trying to get up from floor. Wound VAC has been placed for secondary healing at this point. ID recommended for patient to be
maintained off of antibiotics. Cardiothoracic surgery following.
2. CAD s/p CABG, Systolic HF -maintain on home regimen of aspirin/Plavix/statin. Continue Lasix 20 mg daily. No signs of heart failure exacerbation.
Original Note:
Today's Communication/Plan
-
monitor patient vitals
continue home meds
monitor cbc, cmp
f/u with surgery
Assessment / Plan
Assessment / Plan
Surgical wound dehiscence
Right leg graft donor site
-Patients daughter states she was getting up from toilet on the floor using hand to prop herself up and yoseph to the mechanical tension, this opened up the wound
-There is a open wound on the sternum covered by a wound vac, another open wound on the right leg where which was previously used a graft area for her CABG site
-ID consulted (01/05)- Would continue with local care to the wound, with the addition of Tubigrip's to decrease right lower leg edema which can impede healing, no active indications for an infection so presently antibiotics are not required
- WBC 13.9 but this is likely reactive, rbc- 2.61, hgb- 7.5
-Cardiothoracic PA changed wound vac on chest and dressed the right leg wound , further management per CTS.
- orthostatic vitals in the AM ordered
- f/u with surgery
CAD sp CABG x4
-Maintain on asa/plavix/statin home regimen
Chronic systolic CHF
-Oral lasix 20mg/d, continue for now.
IDDM
-Maintain on Levemir 8U HS and Novolog 4U AC
- her glucose level is 136 (01/06). Daughter states that normally its between 100-130.
HLD
-continue rosuvastatin
GERD
-Continue pantoprazole
Anticipated Discharge: 24 - 48 hours
Subjective/Interval History
-
Date of Service: January 07, 2024
No acute complaints.
Objective Data
-
Labs:
Laboratory Results
01/07/24
05:01
WBC 13.9 H
Hgb 7.5 L
Hct 22.3 L
Plt Count 367
Sodium 142
Potassium 5.0
Chloride 105
Carbon Dioxide 22
BUN 74 H
Creatinine 1.8 H
Glucose 136 H
Calcium 9.5
Vital Signs:
Vital Signs
Temp Pulse Resp BP Pulse Ox
100.1 F 68 16 134/73 94
01/07/24 11:13 01/07/24 11:08 01/07/24 11:13 01/07/24 11:08 01/07/24 11:13
I&O
01/06/24 01/07/24 01/08/24
06:59 06:59 06:59
Intake Total 630 / 630 180 / 180
Output Total 60 / 60 375 / 375
Balance 570 / 570 -195 / -195
Review of Systems
-
History Source: Patient
All other systems: Reviewed and negative
Physical Exam
-
General: Well Developed and Well Nourished
HEENT: Normocephalic and Anicteric
Respiratory: Clear to Auscultation
GI: Soft, Nontender and Nondistended
Skin: Other (there is an open right leg wound, there is another open wound overlying the sternum covered with a wound vac )
Neuro: Awake and Alert
Psych: Calm
Data Reviewed
-
Labs: Labs Reviewed by me and Discussed with Physician
[2024-01-07 14:47] LABS: TSH 3.33 uIU/ml (0.47-4.68)
[2024-01-07] MEDS: FEOSOL 325 MG PO (14:49)
--- NOTE | 2024-01-07 15:52 | W.PN.CT ---
Addendum entered and electronically signed by Almas Robins MD 01/08/24 08:50:
I saw and examined the patient.
The PA's note was reviewed and I agree with the note.
Comment:
Wound VAC changed at bedside this morning. I was very pleased with her early healing progress of her sternal wound. There is clearly no evidence of active infection, there is evidence of granulation tissue beginning the form especially at the
cephalad margins of the wound. The wound has a total length of approximately 12 cm, a width of approximately 2-1/2 to 3 cm, and a depth of 1-1/2 cm. A single black VAC sponge was placed at the base of the wound and the track pad was attached with
the aid of a VAC sponge bridge. The patient sternum is stable to palpation throughout its length.
Her lower extremity wounds also are healing well we placed a yashira dressing to these lower extremity wounds.
Nutritional optimization will be very important in this patient as will continued PT/OT
Will plan for q. Monday/Monday/Monday wound VAC changes. Plan discussed with wound care.
Thank you.
Please call with questions.
Almas Robins MD
[phone]
Original Note:
Today's Communication / Plan
-
Wound vac clogged overnight. Family refused overnight staff to reapply wound vac.
Wound vac changed this AM. Site was irrigated with Vashe and sterile water. Incision was noted to be open further down the sternal incision.
LLE dehisce unchanged.
Assessment / Plan
-
#Wound dehiscence (mechanical)
- s/p Chest CT to evaluate sternum
- Midsternal incision was thoroughly cleaned and irrigated with sterile water and CHG. Wound VAC was applied.
- Right lower extremity harvest site was thoroughly cleansed and irrigated with sterile water and CHG. Aquacel was applied.
- Monitor for fevers and other signs of infection
- Trend WBCs
- Strict sternal precautions
- Consult wound care
#CAD s/p CABG x4
-Continue aspirin and Plavix
#Chronic Anemia
- Monitor CBC
- hgb 7.5 from 8.1
#Thyroid Nodules
- incidental finding of CT scan
- Thyroid work up underway
Subjective
Procedure
S/p CABG x4 on 11/28
-
Date of Service: January 07, 2024
Objective Data
-
Lab Results
01/07/24 05:01
01/07/24 05:01
Vital Signs
Vital Signs
Temp Pulse Resp BP Pulse Ox
99.2 F 77 16 170/81 94
01/07/24 14:48 01/07/24 14:45 01/07/24 14:48 01/07/24 14:49 01/07/24 14:48
CT Intake/Output/Weight
01/06/24 01/07/24 01/07/24
18:59 06:59 18:59
Intake Total 480 / 630 150 / 630 180 / 180
Output Total 60 / 60 375 / 375
Balance 480 / 570 90 / 570 -195 / -195
SaO2: 94
Physical Exam
-
General: Other (lethargic)
Cardiovascular: Regular rate & rhythm
Respiratory: Clear and Equal
Sternum: Stable
Incision: Other (incision not approximated. Wound vac reapplied. )
Extremities: Edema +1
Data Reviewed
-
Lab Results: Results Reviewed
Medications: Active Meds Reviewed
[2024-01-07 17:06] LABS: Glucose - Point of Care 150 mg/dl (70-99)
[2024-01-07] MEDS: NORVASC 5 MG PO (18:10)
[2024-01-07] MEDS: CRESTOR 20 MG PO (18:10)
[2024-01-07] MEDS: LOVENOX 30 MG SC (18:11)
--- NOTE | 2024-01-07 20:00 | PTCARENOTE ---
Rec'd pt resting in bed, dtr at bedside, oriented, cooperative, follows commands, denies pain, SR w/BBB, weak distal pulses, sternal incis w/ wound vac- to 125mm, R LE aqaucell dsg w/ sm amt drainage, RA, lungs decr, fine bibasilar crackles, enc to
c& DB, sat 93, + bowel sounds ,no bm, abd soft, no n/v, voiding yellow urine- purewick intact
[2024-01-07 21:34] LABS: Glucose - Point of Care 147 mg/dl (70-99)
[2024-01-07] MEDS: LANTUS 0.08 UNITS SC (21:50)
[2024-01-07] MEDS: NEURONTIN 300 MG PO (21:50)
[2024-01-08] VITALS (12 sets, daily range): BP systolic 114–149; BP diastolic 58–113
--- NOTE | 2024-01-08 02:15 | PTCARENOTE ---
pt not sleeping, oriented and cooperative but dtr says pt keeps talking as if she was in a movie that she's watching. pt refuses to get am care done at this time
[2024-01-08] MEDS: TYLENOL 650 MG PO ×5 (04:13→22:08)
--- NOTE | 2024-01-08 04:15 | PTCARENOTE ---
Tylenol 650 mg po given for left heel pain
[2024-01-08 05:07] LABS: Hematocrit 22.5 % (37.0-47.0); Hemoglobin 7.6 g/dL (12.0-16.0); Mean Corp Hgb Conc. 33.8 g/dL (33.0-37.0); Mean Corpuscular Hgb 29.9 pg (27.0-31.0); Mean Corpuscular Volume 88.6 fL (81.0-99.0); Mean Platelet Volume 9.3 fL (7.4-10.4); Platelet Count 341 10^3/uL (130-400); Red Blood Cell Count 2.54 10^6/uL (4.20-5.40); Red Cell Dist. Width 14.4 % (11.5-14.5); White Blood Cell Count 15.2 10^3/uL (4.8-10.8)
[2024-01-08 05:28] LABS: ALT (SGPT) 16 U/L (0-35); AST (SGOT) 27 U/L (14-36); Albumin 3.6 g/dl (3.5-5.0); Alkaline Phosphatase 57 U/L (38-126); Blood Urea Nitrogen 65 mg/dl (7-17); Calcium 9.7 mg/dl (8.4-10.2); Carbon Dioxide 21 mmol/L (22-30); Chloride 105 mmol/L (98-107); Glucose 80 mg/dl (70-99); Potassium 4.7 mmol/L (3.5-5.1); Sodium 144 mmol/L (135-145); Total Bilirubin 0.4 mg/dl (0.2-1.3); Total Protein 6.8 g/dl (6.3-8.2)
[2024-01-08 08:55] LABS: Glucose - Point of Care 65 mg/dl (70-99)
[2024-01-08] MEDS: NOVOLOG FLEXPEN SC ×2 (08:55→14:04)
[2024-01-08] MEDS: APRESOLINE 50 MG PO ×3 (08:56→20:31)
[2024-01-08] MEDS: PLAVIX 75 MG PO (08:56)
[2024-01-08] MEDS: NOVOLOG FLEXPEN-LOW RESISTANCE SC ×3 (08:56→18:28)
[2024-01-08] MEDS: LOW STRENGTH ASPIRIN 81 MG PO (08:56)
[2024-01-08] MEDS: PROTONIX 40 MG PO (08:56)
[2024-01-08] MEDS: COREG 12.5 MG PO ×2 (08:57→20:31)
[2024-01-08] MEDS: LASIX 20 MG PO (08:57)
[2024-01-08] MEDS: VITAMIN C 500 MG PO (08:57)
[2024-01-08 09:04] LABS: Glucose - Point of Care 78 mg/dl (70-99)
--- NOTE | 2024-01-08 09:22 | PTCARENOTE ---
Addendum entered by Michael Cotto RN 01/08/24 10:45:
Morning blood sugar 65, 4 oz OJ given 78. Patient awake and eating. Sternal wound vac and right lower leg PATY drain in place, dressing changed by Dr. Robins. Halley left base, diminished on the right. Complaints of left foot, tenderness in ankle.
Tylenol as needed.
Original Note:
Morning blood sugar 65, 4 oz OJ given 78. Patient awake and eating. Sternal wound vac and left lower leg PATY drain in place, dressing changed by Dr. Robins. Halley left base, diminished on the right. Complaints of left foot, tenderness in ankle.
Tylenol as needed.
--- NOTE | 2024-01-08 11:29 | W.PN.CT ---
Today's Communication / Plan
-
Wound vac changed by Dr. Robins this AM; Discussed vac change with wound care team
Ayanna dressing applied to RLE harvest site as well
Assessment / Plan
-
#Wound dehiscence (mechanical)
- s/p Chest CT to evaluate sternum
- Strict sternal precautions
- Consult wound care
#CAD s/p CABG x4
-Continue aspirin and Plavix
#Chronic Anemia
- Monitor CBC
Discussed patient care with: Care Team
Subjective
Procedure
S/p CABG x4 on 11/28
-
Date of Service: January 08, 2024
Objective Data
-
Lab Results
01/08/24 04:22
01/08/24 04:22
Vital Signs
Vital Signs
Temp Pulse Resp BP Pulse Ox
98.5 F 70 20 142/66 94
01/08/24 07:52 01/08/24 08:57 01/08/24 07:52 01/08/24 08:57 01/08/24 04:00
CT Intake/Output/Weight
01/07/24 01/08/24 01/08/24
18:59 06:59 18:59
Intake Total 300 / 600 300 / 600
Output Total 675 / 1675 1000 / 1675
Balance -375 / -1075 -700 / -1075
SaO2: 94
[2024-01-08 11:43] LABS: Glucose - Point of Care 179 mg/dl (70-99)
--- NOTE | 2024-01-08 12:39 | CM ---
Chart reviewed. Patient is independent of ADLS, lives at home with her disabled daughter in a 1 S[address], 0 SANTOS, ambulates with a RW. Patient's other daughter staying with patient to assist. PT evaluation ordered. Patient's daughter concerned the
patient has become more weak and deconditioned. Patient S/P CABG 11/28 with a discharge to [facility]. DC from [facility] 12/19. Await PT evaluation. Family recommendations of [facility] and [facility] if PT recommends SNF. Plan is for the patient to
return home with VN vs SNF. CM to follow
--- NOTE | 2024-01-08 13:02 | PTCARENOTE ---
Patient returned form x-ray slid from stretcher to bed. Remains sleepy, not ready to eat lunch yet. Wound vac intact and Ayanna drain to RLE intact. VSS, daughter at bedside, call dacosta in reach
[2024-01-08 13:44] LABS: Glucose - Point of Care 146 mg/dl (70-99)
--- NOTE | 2024-01-08 13:52 | PTCARENOTE ---
unable to perform orthostatic vitals at this time. Will attempt when she can stand
[2024-01-08] MEDS: FEOSOL 325 MG PO (13:57)
--- NOTE | 2024-01-08 14:46 | W.PN.HOSP.TC ---
Addendum entered and electronically signed by Erin Carballo MD 01/08/24 17:07:
I saw and evaluated the patient independently. I reviewed the resident�s note and agree with findings and plan as documented by Dr. Macias.
GENERAL: well developed, well nourished, female in no apparent distress
HEENT: NC/AT
HEART: regular rate and rhythm, +S1, +S2
LUNGS : clear to auscultation bilaterally
ABDOM: soft, nontender, nondistended, + bowel sounds
EXT: no cyanosis, clubbing, or edema--wound vac in place anterior chest wall--mini wound vac to right leg
NEUROLOGIC: grossly intact
Surgical wound dehiscence from mechanical causes--no signs infection as cause--Right leg graft donor site with dehiscence as well--cont wound vac to both--apprec CT surgery--follow WBC count--likely reactive--cont PT/OT
Left ankle tenderness--xray with soft tissue swelling--likely sprain--brooks wrap for support--tramadol for pain--watch mental status
recent CAD sp CABG x4--Maintain on asa/plavix/statin home regimen
Chronic systolic CHF without exacerbation--Oral lasix 20mg/d, continue for now.
Type 2 DM insulin requiring--hold for now as blood sugars lower side--SSI only
HLD--continue rosuvastatin
GERD-Continue pantoprazole
DVT proph
code status --full code
Original Note:
Today's Communication/Plan
-
f/u with cardiothoracic surgery
trend blood glucose levels.
trend CBC
Assessment / Plan
Assessment / Plan
Surgical wound dehiscence
Right leg graft donor site
-Patients daughter states she was getting up from toilet on the floor using hand to prop herself up and yoseph to the mechanical tension, this opened up the wound
-There is a open wound on the sternum covered by a wound vac that was changed today (01/07) by Cardiothoracic surgery, another open wound on the right leg has PATY dressing to it as well
- WBC 15.2 but this is likely reactive observe the trends, rbc- 2.54, hgb- 7.6 (01/07)
- Cardiothoracic surgery Dr. Robins recommends keeping patient for a couple of days to allow wound to heal better
- PT/OT ordered
-ID consulted (01/05)- Would continue with local care to the wound, with the addition of Tubigrip's to decrease right lower leg edema which can impede healing, no active indications for an infection so presently antibiotics are not required
- orthostatic vitals in the AM ordered
Left ankle tenderness:
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
Moderate infrapopliteal calcific atherosclerotic disease.
- Ordered oral tramadol 12.5 oral q6h prn for ankle pain (01/07)
CAD sp CABG x4
-Maintain on asa/plavix/statin home regimen
Chronic systolic CHF
-Oral lasix 20mg/d, continue for now.
IDDM
- her glucose level is 80 (01/07). Daughter states that normally its between 100-130.
-discontinue Levemir 8U HS and discontinue Novolog 4U AC, only maintain on sliding scale insulin
HLD
-continue rosuvastatin
GERD
-Continue pantoprazole
Anticipated Discharge: 24 - 48 hours
Subjective/Interval History
-
Date of Service: January 08, 2024
Pt has pain of the left ankle. Pt's daughter is asking about adjusting insulin dose.
Objective Data
-
Labs:
Laboratory Results
01/08/24
04:22
WBC 15.2 H
Hgb 7.6 L
Hct 22.5 L
Plt Count 341
Sodium 144
Potassium 4.7
Chloride 105
Carbon Dioxide 21 L
BUN 65 H
Creatinine 1.7 H
Glucose 80
Calcium 9.7
Total Bilirubin 0.4
AST 27
ALT 16
Alkaline Phosphatase 57
Vital Signs:
Vital Signs
Temp Pulse Resp BP Pulse Ox
98.2 F 68 18 114/74 95
01/08/24 13:04 01/08/24 14:09 01/08/24 13:04 01/08/24 14:01/08/24 13:04
I&O
01/07/24 01/08/24 01/09/24
06:59 06:59 06:59
Intake Total 630 / 630 600 / 600 240 / 240
Output Total 60 / 60 1675 / 1675
Balance 570 / 570 -1075 / -1075 240 / 240
Review of Systems
-
History Source: Family
Musculoskeletal: Reports Muscle Pain (left ankle pain )
Physical Exam
-
General: Well Developed and Well Nourished
HEENT: Normocephalic and Atraumatic
Cardiac: Regular Rhythm
GI: Soft, Nontender and Nondistended
Musculoskeletal: Other (no tenderness of left ankle )
Skin: Warm and Dry
Psych: Calm
Data Reviewed
-
Labs: Labs Reviewed by me and Discussed with Physician
--- NOTE | 2024-01-08 16:00 | WOUNDNOTE ---
WON RN note: Patient admitted with dehisced surgical wounds.
See H&P for complete history.
PMH: CABG 11/29/23, IDDM,CKD.
Wound Location and type/assessment: Patient admitted with: dehiscence to sternal and R leg harvest site surgical wounds. Sternal wound vac dressing changed by Dr. Robins this AM, test grader to meet with CT PA on Mon. for next vac change. Will
update [employer] with vac info. Abdominal binder over wound vac. No air leaks and vac setting at 125mmhg. R leg with intact PATY dressing. Patient able to turn with minimal assist, old healed PI on sacrum, pink scar visible. Heels are intact.
Appetite: Good.
Pressure redistribution devices in place: On air mattress.
Plan: Follow up as planned for vac changes with CT surgical group. Applied sacral silicone foam and heel foams to protect. Air chair cushion applied on pillow and placed under calves to offload heels. Can use air cushion when sitting in chair and
take upon discharge. Daughter Jared at bedside and made aware of the above.
Will confirm orders with hospitalist and updated nurse. Updated care plan and will follow as needed.
Note to case management of equipment requested for discharge: TBD
Recommend follow up with CT surgeon upon discharge.
--- NOTE | 2024-01-08 17:21 | W.PN.ID1 ---
Date of Service
Date of Service: January 08, 2024 - Late addition. Pt seen this AM
Today's Communication
Sign off.
Assessment / Plan
Sternal wound dehiscence
Right lower extremity graft harvest site dehiscence
- No evidence of infection in either area
Leukocytosis
- Suspect reactive
HTN
Dyslipidemia
CAD
DM
CKD
Recommendations:
At present, neither the sternal wound nor the right lower extremity wound appear infected.
Agree with initiation of VAC therapy to the sternal wound which will assist in healing.
Would continue with local care to the wound, with the addition of Tubigrip's to decrease edema.
Will monitor off of family Infectious Diseases standpoint.
Will see again at your request.
Chief Complaint
-: Other (wound)
Subjective / Review of Systems
Review of Systems: No Fever and No Chills
Vital Signs / Physical Exam
Vital Signs
Vital Signs
Temp Pulse Resp BP Pulse Ox
97.4 F 64 18 126/72 94
01/08/24 16:01 01/08/24 16:00 01/08/24 16:01 01/08/24 15:46 01/08/24 16:01
Physical Exam
Constitutional: No Acute Distress, Comfortable and Non-toxic
Pulmonary: Non Labored
Gastrointestinal: Non Distended
Wound: Other (Sternal wound and leg wound dressed.)
Neurological: Awake and Alert
Psychological: Calm
Objective Data
Lab Data
Lab Results
01/08/24 04:22
01/08/24 04:22
Total Bilirubin 0.4 mg/dl (0.2-1.3) 01/08/24 04:22
AST 27 U/L (14-36) 01/08/24 04:22
ALT 16 U/L (0-35) 01/08/24 04:22
Alkaline Phosphatase 57 U/L (38-126) 01/08/24 04:22
Most recent labs reviewed.
Imaging:
01/06/2024 CT chest without contrast: There is median sternotomy with wire sternal sutures with open wound at the skin surface and subcutaneous emphysema but no abscess
Care Review
Plan reviewed with: Other Provider (CT Surgery)
[2024-01-08] MEDS: LOVENOX 30 MG SC (18:05)
[2024-01-08] MEDS: CRESTOR 20 MG PO (18:05)
[2024-01-08] MEDS: NORVASC 5 MG PO (18:06)
[2024-01-08 18:16] LABS: Glucose - Point of Care 149 mg/dl (70-99)
--- NOTE | 2024-01-08 21:52 | PTCARENOTE ---
received patient at the change of shift. daughter at the bedside. patient drowsy but arousable to voice. oriented x3. patient states improved pain at L heel from tylenol. denies any other pain at this time. SR with a BBB on tele-HR 60s. bp stable.
turn/reposition q2. perineal care completed. sternal incision intact with wound vac/dressing. RLL dressing intact with PATY drain. heels elevated. reviewed plan of care with patient and daughter. answered all questions.
scheduled ultram ordered placed. patient and daughter refusing at this time and would like it as needed-if tylenol does not help pain. requested ultram as PRN order and updated Lc Pepper TRAFFIC INCIDENT MANAGEMENT MANAGER. order d/c'd per TRAFFIC INCIDENT MANAGEMENT MANAGER at this time and will update if
patient needs something stronger than Tylenol-see mar.
[2024-01-08 22:02] LABS: TSH Receptor Antibody <1.10 IU/L (<=1.75)
[2024-01-08 22:05] LABS: Glucose - Point of Care 164 mg/dl (70-99)
[2024-01-08] MEDS: NEURONTIN 300 MG PO (22:08)
[2024-01-09] VITALS (15 sets, daily range): BP systolic 126–143; BP diastolic 61–80; PULSE 68–79
[2024-01-09] MEDS: TYLENOL 650 MG PO ×3 (04:11→22:25)
[2024-01-09 04:31] LABS: Hematocrit 22.6 % (37.0-47.0); Hemoglobin 7.4 g/dL (12.0-16.0); Mean Corp Hgb Conc. 32.7 g/dL (33.0-37.0); Mean Corpuscular Hgb 27.8 pg (27.0-31.0); Mean Platelet Volume 8.8 fL (7.4-10.4); Platelet Count 342 10^3/uL (130-400); Red Blood Cell Count 2.66 10^6/uL (4.20-5.40); Red Cell Dist. Width 14.2 % (11.5-14.5); White Blood Cell Count 13.2 10^3/uL (4.8-10.8)
[2024-01-09 04:49] LABS: ALT (SGPT) 17 U/L (0-35); AST (SGOT) 25 U/L (14-36); Albumin 3.2 g/dl (3.5-5.0); Alkaline Phosphatase 54 U/L (38-126); Blood Urea Nitrogen 65 mg/dl (7-17); Calcium 9.5 mg/dl (8.4-10.2); Carbon Dioxide 23 mmol/L (22-30); Chloride 105 mmol/L (98-107); Estimated Creatinine Clearance 25 ml/min; Glucose 157 mg/dl (70-99); Potassium 4.6 mmol/L (3.5-5.1); Sodium 144 mmol/L (135-145); Total Bilirubin 0.3 mg/dl (0.2-1.3); Total Protein 6.3 g/dl (6.3-8.2); eGFR 33.01
[2024-01-09] MEDS: ULTRAM 12.5 MG PO ×2 (06:18→18:42)
[2024-01-09 07:17] LABS: Glucose - Point of Care 138 mg/dl (70-99)
[2024-01-09] MEDS: NOVOLOG FLEXPEN-LOW RESISTANCE SC (07:52)
[2024-01-09] MEDS: LOW STRENGTH ASPIRIN 81 MG PO (07:53)
[2024-01-09] MEDS: APRESOLINE 50 MG PO ×3 (07:53→20:16)
[2024-01-09] MEDS: PROTONIX 40 MG PO (07:53)
[2024-01-09] MEDS: LASIX 20 MG PO (07:53)
[2024-01-09] MEDS: VITAMIN C 500 MG PO (07:53)
[2024-01-09] MEDS: COREG 12.5 MG PO ×2 (07:54→20:16)
[2024-01-09] MEDS: PLAVIX 75 MG PO (07:54)
[2024-01-09] MEDS: THERAGRAN 1 TABLET PO (07:54)
[2024-01-09 09:14] LABS: Glycohemoglobin (HgbA1c) 6.3 % (4.0-5.6)
--- NOTE | 2024-01-09 10:34 | PTCARENOTE ---
Recd pt at change of shift on TELE monitor in NSR with BBB, VSS, and AAAO*3. Negative pressure wound dressing on sternum intact and connected to wound vac. Pt also with PATY wound dressing on RLE intact. Pt sitting at bedside with call dacosta in
reach eating breakfast.
--- NOTE | 2024-01-09 11:22 | CM ---
Chart reviewed. Patient is independent of ADLS, lives with her disabled daughter in a 1 S[address], 0 SANTOS, ambulates with a RW. Patient was discharged from [facility] on 12/19 and her other daughter has been staying with her since> Pt evaluation
recommending SNF. Referrals sent to [facility]. Plan is for the patient to go to SNF. CM to follow
[2024-01-09 12:08] LABS: Glucose - Point of Care 186 mg/dl (70-99)
[2024-01-09] MEDS: NOVOLOG FLEXPEN-LOW RESISTANCE 1 UNITS SC (12:10)
[2024-01-09] MEDS: FEOSOL 325 MG PO (12:39)
--- NOTE | 2024-01-09 17:40 | W.PN.CT ---
Today's Communication / Plan
-
continue current wound management
Assessment / Plan
-
#Wound dehiscence (mechanical)
- Chest CT 01/05: open wound at the skin surface and subcutaneous emphysema but no abscess
- Strict sternal precautions
- Sternal wound VAC intact and R leg with intact PATY dressing
#CAD s/p CABG x4 (11/28)
-Continue aspirin and Plavix
# post-op complete heart block s/p dual-chamber AICD insertion (11/30)
#Chronic Anemia
- Hb 7.4>Monitor CBC
Discussed patient care with: Care Team
Subjective
Procedure
S/p CABG x4 on 11/28
-
Date of Service: January 09, 2024
Objective Data
-
Lab Results
01/09/24 03:54
01/09/24 03:54
Vital Signs
Vital Signs
Temp Pulse Resp BP Pulse Ox
99.7 F 72 18 140/61 95
01/09/24 15:00 01/09/24 16:00 01/09/24 15:00 01/09/24 15:27 01/09/24 15:00
CT Intake/Output/Weight
01/08/24 01/09/24 01/09/24
18:59 06:59 18:59
Intake Total 480 / 480 240 / 240
Output Total 600 / 900 300 / 900
Balance -120 / -420 -300 / -420 240 / 240
SaO2: 95
Physical Exam
-
General: AOx3
Cardiovascular: Regular rate & rhythm
Respiratory: Clear
Sternum: Stable
Incision: Dressing Intact
Data Reviewed
-
Lab Results: Results Reviewed
Medications: Active Meds Reviewed
CT Scan: Report Reviewed
ECG: Report Reviewed and Image Reviewed
[2024-01-09] MEDS: CRESTOR 20 MG PO (18:07)
[2024-01-09] MEDS: LOVENOX 30 MG SC (18:07)
[2024-01-09] MEDS: NORVASC 5 MG PO (18:07)
[2024-01-09 18:09] LABS: Glucose - Point of Care 243 mg/dl (70-99)
[2024-01-09] MEDS: NOVOLOG FLEXPEN-LOW RESISTANCE 2 UNITS SC (18:09)
--- NOTE | 2024-01-09 19:10 | W.PN.HOSP.TC ---
Addendum entered and electronically signed by Erin Carballo MD 01/09/24 21:31:
I saw and evaluated the patient independently. I reviewed the resident�s note and agree with findings and plan as documented by Dr. Macias.
GENERAL: well developed, well nourished, female in no apparent distress
HEENT: NC/AT
HEART: regular rate and rhythm, +S1, +S2
LUNGS : clear to auscultation bilaterally
ABDOM: soft, nontender, nondistended, + bowel sounds
EXT: no cyanosis, clubbing, or edema--wound vac in place anterior chest wall--mini wound vac to right leg
NEUROLOGIC: grossly intact
Surgical wound dehiscence from mechanical causes--no signs infection as cause--Right leg graft donor site with dehiscence as well--cont wound vac to both--apprec CT surgery--follow WBC count--likely reactive, improving--cont PT/OT
Left ankle tenderness--xray with soft tissue swelling--likely sprain--cont khadra wrap for support--tramadol for pain
recent CAD sp CABG x4--Maintain on asa/plavix/statin home regimen
Chronic systolic CHF without exacerbation--Oral lasix 20mg daily, continue for now.
Type 2 DM insulin requiring--hold for now as blood sugars lower side--SSI only
HLD--continue rosuvastatin
GERD-Continue pantoprazole
DVT proph
code status --full code
Original Note:
Today's Communication/Plan
-
continue to f/u cardiothoracic
continue to monitor status of ankle
continue pt/ot
continue to monitor glucose levels and adjust insulin if needed
Assessment / Plan
Assessment / Plan
Surgical wound dehiscence
Right leg graft donor site
-Patients daughter states she was getting up from toilet on the floor using hand to prop herself up and yoseph to the mechanical tension, this opened up the wound
-There is a open wound on the sternum covered by a wound vac that was changed today (01/07) by Cardiothoracic surgery, another open wound on the right leg has PATY dressing to it as well
- WBC 13.2 trending down but this is likely reactive observe the trends, rbc- 2.66, hgb- 7.4 (01/07)
- Cardiothoracic surgery Dr. Robins recommends keeping patient for a couple of days to allow wound to heal better
- PT/OT ordered, 2nd day- presents with weakness, impaired functional mobility, will benefit from skilled rehab
-ID consulted (01/05)- Would continue with local care to the wound, with the addition of Tubigrip's to decrease right lower leg edema which can impede healing, no active indications for an infection so presently antibiotics are not required
- orthostatic vitals in the AM ordered
Left ankle tenderness:
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
Moderate infrapopliteal calcific atherosclerotic disease.
- Ordered oral tramadol 12.5 oral q6h prn for ankle pain (01/07)- continue as needed
- KHADRA wrap ordered for edema of the left ankle (01/08)
CAD sp CABG x4
-Maintain on asa/plavix/statin home regimen
Chronic systolic CHF
-Oral lasix 20mg/d, continue for now.
IDDM
- her glucose level is 157 (01/07). Daughter states that normally its between 100-130.
-discontinue Levemir 8U HS and discontinue Novolog 4U AC, only maintain on sliding scale insulin and see where glucose levels trend
HLD
-continue rosuvastatin
GERD
-Continue pantoprazole
Anticipated Discharge: 24 - 48 hours
Subjective/Interval History
-
Date of Service: January 09, 2024
She still has left ankle pain but it is better now on the tramadol we prescribed her.
Objective Data
-
Vital Signs:
Vital Signs
Temp Pulse Resp BP Pulse Ox
98.2 F 77 16 140/61 98
01/09/24 19:02 01/09/24 19:02 01/09/24 19:02 01/09/24 18:07 01/09/24 19:02
I&O
01/08/24 01/09/24 01/10/24
06:59 06:59 06:59
Intake Total 600 / 600 480 / 480 480 / 480
Output Total 1675 / 1675 900 / 900 0 / 0
Balance -1075 / -1075 -420 / -420 480 / 480
Review of Systems
-
History Source: Patient
Musculoskeletal: Reports Other (left ankle pain )
Physical Exam
-
General: Well Developed and Well Nourished
HEENT: Normocephalic and Atraumatic
Respiratory: Clear to Auscultation
Cardiac: Regular Rhythm and S1/S2
GI: Soft, Nontender and Nondistended
Musculoskeletal: No Clubbing and No Cyanosis
Skin: Warm and Dry
Neuro: Awake, Alert, Oriented and AO x 3
Psych: Calm
Data Reviewed
-
Labs: Labs Reviewed by me and Discussed with Physician
[2024-01-09 22:04] LABS: Glucose - Point of Care 234 mg/dl (70-99)
[2024-01-09] MEDS: SENOKOT-S 1 TABLET PO (22:25)
[2024-01-09] MEDS: NEURONTIN 300 MG PO (22:25)
[2024-01-10] VITALS (13 sets, daily range): BP systolic 100–151; BP diastolic 50–78
--- NOTE | 2024-01-10 04:48 | PTCARENOTE ---
Pt sleeping all night with daughter at bedside - oob once at beginning of shift to void on bsc. Pt currently does not wish to get up at this time. Sternal Wound vac in place and on at 125 pressure. Right leg drsg/ PATY intact. No bm for several
days, pts daughter stated that prune juice works better than po medications. Pt agreeable to take Senokot at hs.
[2024-01-10 04:51] LABS: Hematocrit 21.1 % (37.0-47.0); Mean Corp Hgb Conc. 33.2 g/dL (33.0-37.0); Mean Corpuscular Hgb 29.3 pg (27.0-31.0); Mean Corpuscular Volume 88.3 fL (81.0-99.0); Mean Platelet Volume 8.9 fL (7.4-10.4); Platelet Count 328 10^3/uL (130-400); Red Blood Cell Count 2.39 10^6/uL (4.20-5.40); Red Cell Dist. Width 14.3 % (11.5-14.5); White Blood Cell Count 13.4 10^3/uL (4.8-10.8)
[2024-01-10 05:14] LABS: ALT (SGPT) 14 U/L (0-35); AST (SGOT) 20 U/L (14-36); Albumin 3.2 g/dl (3.5-5.0); Alkaline Phosphatase 51 U/L (38-126); Blood Urea Nitrogen 61 mg/dl (7-17); Calcium 9.4 mg/dl (8.4-10.2); Carbon Dioxide 26 mmol/L (22-30); Chloride 105 mmol/L (98-107); Estimated Creatinine Clearance 24 ml/min; Glucose 149 mg/dl (70-99); Potassium 4.6 mmol/L (3.5-5.1); Sodium 144 mmol/L (135-145); Total Bilirubin 0.3 mg/dl (0.2-1.3); Total Protein 6.3 g/dl (6.3-8.2)
[2024-01-10 07:36] LABS: Glucose - Point of Care 134 mg/dl (70-99)
[2024-01-10] MEDS: NOVOLOG FLEXPEN-LOW RESISTANCE SC ×2 (07:36→17:41)
[2024-01-10] MEDS: PLAVIX 75 MG PO (07:37)
[2024-01-10] MEDS: VITAMIN C 500 MG PO (07:37)
[2024-01-10] MEDS: LOW STRENGTH ASPIRIN 81 MG PO (07:37)
[2024-01-10] MEDS: LASIX 20 MG PO (07:37)
[2024-01-10] MEDS: THERAGRAN 1 TABLET PO (07:37)
[2024-01-10] MEDS: PROTONIX 40 MG PO (07:37)
[2024-01-10] MEDS: COREG 12.5 MG PO ×2 (07:37→19:57)
[2024-01-10] MEDS: APRESOLINE 50 MG PO ×3 (07:37→19:57)
--- NOTE | 2024-01-10 08:20 | PTCARENOTE ---
Patient up this morning, voided on the commode, assist times 2, very unsteady. Assisted to the chair for breakfast. RLE PATY drain has old drainage on the sponge, distally to the drain sponge under the Tegaderm has some yellow exudate and redness
around the incision. Sternal incision intact to wound vac. Sreri strips to left anterior chest. Fine cracles left base, poor effort. NSR, VSS, pills given in applesauce. Daughter at bedside
[2024-01-10] MEDS: TYLENOL 650 MG PO ×3 (10:14→19:56)
--- NOTE | 2024-01-10 10:17 | CM ---
Chart reviewed. Patient is independent of ADLS, lives with her disabled daughter, 1 STH, 0 SANTOS, ambulates with a RW. Patient's other daughter stays with the patient to assist. PT evaluation recommending SNF. Referrals sent to [facility] and
[facility]. Plan is for the patient to go to SNF when medically stable. CM to follow
[2024-01-10 12:27] LABS: Glucose - Point of Care 296 mg/dl (70-99)
[2024-01-10] MEDS: NOVOLOG FLEXPEN-LOW RESISTANCE 3 UNITS SC (12:30)
--- NOTE | 2024-01-10 14:22 | PN.DE.MGMTRT ---
Insulin Management
- -
01/10/2024 Diabetes Management Consult
Patient admitted with sternal surgical wound dehiscence. PMH of chronic systolic heart failure, HTN, HLD, CKDx3, DM. Patient know to diabetes from Post op cabg 11/21. Prior to admission was taking levemir 8 units @ hs and 4 units novolog AC. A1C
6.3%, cr 1.7, eGFR 30.70.
Patient is sleeping soundly, not awakened.
Patient glucose trended down on 01/07 insulin held, then up to > 200 on 01/08.
Will resume hs lantus at lower dose, 6 units. Requested nursing check 3AM glucose. Will resume 4 units novolog AC with low corrective insulin.
I did tt nurse regarding 3AM glucose.
Will follow
Diabetes History
- -
Type of Diabetes: 2 requiring insulin
Pre-Admission Diabetes Regimen
01/10/24
04:29
Creatinine 1.7 H
Lab Results
Hemoglobin A1c Cancelled 01/08/24 10:24
Insulin Pump Settings
IP Diabetes Regimen
01/09/24 01/09/24 01/10/24
18:08 22:02 04:29
Glucose 149 H
POC Glucose 243 H 234 H
01/10/24 01/10/24
07:35 12:25
Glucose
POC Glucose 134 H 296 H
Meal type: Dinner
Meal type: Dinner
Amount consumed: 100%
Amount consumed: 30%
Patient Education
--- NOTE | 2024-01-10 14:31 | W.PN.HOSP.TC ---
Addendum entered and electronically signed by Erin Carballo MD 01/10/24 20:20:
I saw and evaluated the patient independently. I reviewed the resident�s note and agree with findings and plan as documented by Dr. Macias.
GENERAL: well developed, well nourished, female in no apparent distress
HEENT: NC/AT
HEART: regular rate and rhythm, +S1, +S2
LUNGS : clear to auscultation bilaterally
ABDOM: soft, nontender, nondistended, + bowel sounds
EXT: no cyanosis, clubbing, or edema--wound vac in place anterior chest wall--mini wound vac to right leg
NEUROLOGIC: grossly intact
Surgical wound dehiscence from mechanical causes--no signs infection as cause--Right leg graft donor site with dehiscence as well--cont wound vac to both--apprec CT surgery--follow WBC count--likely reactive, improving--cont PT/OT
Left ankle tenderness--xray with soft tissue swelling--likely sprain--cont khadra wrap for support--tramadol for pain
Anemia--likely of chronic disease, superimposed by recent surgery, likely postoperative dilution, chronic daily blood draws without time for red blood cell repletion--hemoglobin has drifted down to 7.0--will transfuse 1 unit packed red blood
cells--informed consent has been obtained from the patient (daughter at bedside witness)
recent CAD sp CABG x4--Maintain on asa/plavix/statin home regimen
Chronic systolic CHF without exacerbation--Oral lasix 20mg daily, continue for now.
Type 2 DM insulin requiring--hold for now as blood sugars lower side--SSI only--consult diabetic nurse practitioner for assistance
HLD--continue rosuvastatin
GERD-Continue pantoprazole
DVT proph
code status --full code
Original Note:
Today's Communication/Plan
-
f/u with cardiothoracic surgery
Follow up hemoglobin
Assessment / Plan
Assessment / Plan
Surgical wound dehiscence
Right leg graft donor site
-Patients daughter states she was getting up from toilet on the floor using hand to prop herself up and yoseph to the mechanical tension, this opened up the wound
-There is a open wound on the sternum covered by a wound vac that was changed today (01/07) by Cardiothoracic surgery, another open wound on the right leg has PATY dressing changed because of purulent dressing (01/09)
- WBC 13.4 trending down but this is likely reactive observe the trends, rbc- 2.39, hgb- 7.0 (01/09)
- Cardiothoracic surgery Dr. Robins recommends keeping patient for a couple of days to allow wound to heal better
- PT/OT ordered, 2nd day- presents with weakness, impaired functional mobility, will benefit from skilled rehab
-ID consulted (01/05)- Would continue with local care to the wound, with the addition of Tubigrip's to decrease right lower leg edema which can impede healing, no active indications for an infection so presently antibiotics are not required
- orthostatic vitals in the AM ordered
Anemia:
- Pt hgb level is 7 (01/09)
- One unit of packed rbc's is necessary, and patient has signed the consent form understanding the risks/benefits.
Left ankle tenderness:
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
Moderate infrapopliteal calcific atherosclerotic disease.
- Ordered oral tramadol 12.5 oral q6h prn for ankle pain (01/07)- continue as needed
- KHADRA wrap ordered for edema of the left ankle (01/08)-
CAD sp CABG x4
-Maintain on asa/plavix/statin home regimen
Chronic systolic CHF
-Oral lasix 20mg/d, continue for now.
IDDM
- her glucose level is 149 (01/09). Daughter states that normally its between 100-130.
- home coordinator consulted- (01/09), changed inulin regime- hs lantus at 6 units lower dose, resume check with nurse at 3 am, then resume 4 units novolog AC with low corrective insulin
HLD
-continue rosuvastatin
GERD
-Continue pantoprazole
Anticipated Discharge: 24 - 48 hours
Subjective/Interval History
-
Date of Service: January 10, 2024
Patient has no overnight events. No acute medical complaints.
Objective Data
-
Labs:
Laboratory Results
01/10/24
04:29
WBC 13.4 H
Hgb 7.0 L
Hct 21.1 L
Plt Count 328
Sodium 144
Potassium 4.6
Chloride 105
Carbon Dioxide 26
BUN 61 H
Creatinine 1.7 H
Glucose 149 H
Calcium 9.4
Total Bilirubin 0.3
AST 20
ALT 14
Alkaline Phosphatase 51
Vital Signs:
Vital Signs
Temp Pulse Resp BP Pulse Ox
99.4 F 66 16 119/67 96
01/10/24 12:26 01/10/24 14:00 01/10/24 12:26 01/10/24 12:32 01/10/24 13:25
I&O
01/09/24 01/10/24 01/11/24
06:59 06:59 06:59
Intake Total 480 / 480 480 / 480 275 / 275
Output Total 900 / 900 0 / 0
Balance -420 / -420 480 / 480 275 / 275
Review of Systems
-
History Source: Patient
All other systems: Reviewed and negative
Physical Exam
-
General: Well Developed and Well Nourished
HEENT: Normocephalic and Atraumatic
Respiratory: Clear to Auscultation
Cardiac: S1/S2
GI: Soft, Nontender and Nondistended
Musculoskeletal: No Clubbing, No Edema and Other (purulent drainage of wound on right lower extremity dressing)
Skin: Warm and Dry
Neuro: Awake, Alert, Oriented and AO x 3
Psych: Calm
Data Reviewed
-
Labs: Labs Reviewed by me and Discussed with Physician
[2024-01-10] MEDS: FEOSOL 325 MG PO (14:49)
--- NOTE | 2024-01-10 14:56 | WOUNDNOTE ---
WOC RN note: Dr. Robins changed sternal wound vac and RLE Paty. Sternal wound pink with yellow tissue. RLE incision slightly open, pink with small ss drainage. Proximal part of RLE incision indurated and dull red locally. Heels off bed with pillow.
Silicone border foam changed on sacrum. Skin dull red and fragile appearing with scarred skin. Patient is on a [facility] air bed. She has an air chair cushion. She ate breakfast and had a Boost supplemental drink today. Next sternal vac
dressing change due Monday. t/c Spoke with SHARON Jenkins re: patient will need a sternal wound vac (size Medium solid vac dressing kit being used) at SNF rehab and she has a PATY dressing on RLE. On day of discharge nursing is to remove sternal vac
dressing and apply saline gauze for transfer and rehab will apply their own vac dressing/equipment. Discussed with ELIO Lisa.
--- NOTE | 2024-01-10 16:03 | PTCARENOTE ---
Blood transfusion completed. VSS, call dacosta in reach
--- NOTE | 2024-01-10 16:51 | PN.CDI ---
CDI
- -
CDI:
Physician Documentation Request
Admit Date: 01/06/24 11:25
Dear Doctor Haris/ Tyron,
Please review the following and provide your response in the progress notes.
Clinical Indicators:
Pt admitted with Surgical wound dehiscence from fall/Right leg graft donor site with dehiscence
Documented per ED, ' .... complaining of her chest incision opening and bleeding. She was falling to the ground, and was lowered to the floor, and then pulled up by her arms. Her chest incision open. Her right lower leg incision also
open.....Anemia...'
Progress note 01/09,' Anemia: Pt hgb level is 7 (01/09) One unit of packed rbc's ...'
Documented Hx of CKD 3b
01/06/24 01/07/24 01/09/24
09:04 05:01 03:54
Hgb 8.1 L 7.5 L 7.4 L
Hct 24.9 L 22.3 L 22.6 L
01/10/24
04:29
Hgb 7.0 L
Hct 21.1 L
Based on the above, could you clarify, in your progress note, which of the following is the most likely type of anemia you are evaluating, monitoring and/or treating?
Acute blood loss anemia with baseline chronic anemia (Specify type)
Anemia of chronic disease /CKD only
Other
Use of terms such as suspected, likely, concern for, or probable (associated with a specific diagnosis that is being evaluated, monitored, or treated as if it exists) are acceptable and can be coded in the inpatient setting, when documented at the
time of discharge.
Thank you,
Sandra Arana RN
CDI Specialist
[facility]
Please use your independent medical judgment in providing your response.
[2024-01-10 17:00] LABS: Glucose - Point of Care 201 mg/dl (70-99)
[2024-01-10] MEDS: NOVOLOG FLEXPEN 4 UNITS SC (17:05)
--- NOTE | 2024-01-10 17:51 | W.PN.UPDATE ---
Update Note
Progress Note Update
Other anemia with baseline low hemoglobin
[2024-01-10] MEDS: LOVENOX 30 MG SC (18:20)
[2024-01-10] MEDS: CRESTOR 20 MG PO (18:20)
[2024-01-10] MEDS: NORVASC 5 MG PO (18:20)
[2024-01-10] MEDS: SENOKOT-S 1 TABLET PO (19:56)
[2024-01-10 22:48] LABS: Glucose - Point of Care 177 mg/dl (70-99)
[2024-01-10] MEDS: NEURONTIN 300 MG PO (22:48)
--- NOTE | 2024-01-10 23:09 | W.PN.UPDATE ---
Update Note
Progress Note Update
Blood sugar 177, patient refused the 6 units of insulin per sliding scale, will like to take only 4 units of insulin. Will order 4 units of insulin now.
[2024-01-11] VITALS (9 sets, daily range): BP systolic 115–145; BP diastolic 58–95; O2SAT 97
[2024-01-11] MEDS: LANTUS 0.04 UNITS SC ×2 (00:04→21:40)
--- NOTE | 2024-01-11 00:10 | PTCARENOTE ---
Pt assisted oob to bsc at change of shift. Passed very large hard black stool. heme test negative. Dulcolax tablet given with meds. 2 person assist back to bed. At HS accu check 177. Daughter at bedside. Daughter stated she did not want her Mom to
get 6 units of Lantus at that time 'its too much,its causing her to be sleepy'. [employer] made aware. Family agreeable to 4 units of Lantus. Dose given.
Sinus on telemetry. [place] drain and wound vac intact.
[2024-01-11 04:39] LABS: Glucose - Point of Care 138 mg/dl (70-99)
[2024-01-11] MEDS: TYLENOL 650 MG PO ×4 (04:43→20:55)
[2024-01-11 05:37] LABS: ALT (SGPT) 16 U/L (0-35); AST (SGOT) 27 U/L (14-36); Albumin 3.5 g/dl (3.5-5.0); Alkaline Phosphatase 47 U/L (38-126); Blood Urea Nitrogen 66 mg/dl (7-17); Calcium 9.4 mg/dl (8.4-10.2); Carbon Dioxide 25 mmol/L (22-30); Chloride 104 mmol/L (98-107); Estimated Creatinine Clearance 25 ml/min; Glucose 126 mg/dl (70-99); Magnesium 2.5 mg/dl (1.6-2.3); Sodium 143 mmol/L (135-145); Total Bilirubin 0.6 mg/dl (0.2-1.3); Total Protein 6.6 g/dl (6.3-8.2); eGFR 33.01
[2024-01-11 08:17] LABS: Glucose - Point of Care 110 mg/dl (70-99)
--- NOTE | 2024-01-11 08:40 | PN.DE.MGMTRT ---
Insulin Management
- -
01/11/2024 Diabetes Management Consult Follow up
Patient admitted with sternal surgical wound dehiscence. PMH of chronic systolic heart failure, HTN, HLD, CKDx3, DM. Patient know to diabetes from Post op cabg 11/21. Prior to admission was taking levemir 8 units @ hs and 4 units novolog AC. A1C
6.3%, cr 1.7, eGFR 30.70.
Patient is awake, alert and oriented, daughter at bedside, discussed diabetes plan of care.
Patient glucose trended down on 01/07 insulin held, then up to > 200 on 01/08.
HS lantus resumed at lower dose, 6 units, 01/09, family refused, agreed to 4 units lantus @ HS. 3AM glucose 138, fasting glucose 110. Will continue lantus 4 units @ hs. 4 units novolog AC with low corrective insulin resumed pre dinner, HS glucose
177. Daughter refused AM novolog for breakfast. States patients primary doctor said she should only get insulin if her glucose is above 150. Explained importance of optimal glucose control for wound healing and the 4 units of novolog would cover
the food she ate. Daughter again states 'her doctor says she should only get insulin if glucose is above 150'.
Will follow
Diabetes History
- -
Type of Diabetes: 2 requiring insulin
Pre-Admission Diabetes Regimen
01/11/24
04:35
Creatinine 1.6 H
Lab Results
Hemoglobin A1c Cancelled 01/08/24 10:24
Insulin Pump Settings
IP Diabetes Regimen
01/10/24 01/10/24 01/10/24
12:25 16:59 22:46
Glucose
POC Glucose 296 H 201 H 177 H
01/11/24 01/11/24 01/11/24
04:32 04:35 08:16
Glucose 126 H
POC Glucose 138 H 110 H
Meal type: Dinner
Meal type: Lunch
Amount consumed: 75%
Amount consumed: 50%
Patient Education
[2024-01-11 09:31] LABS: Hemoglobin 8.3 g/dL (12.0-16.0); Mean Corp Hgb Conc. 33.2 g/dL (33.0-37.0); Mean Corpuscular Hgb 28.1 pg (27.0-31.0); Mean Corpuscular Volume 84.7 fL (81.0-99.0); Mean Platelet Volume 8.7 fL (7.4-10.4); Platelet Count 327 10^3/uL (130-400); Red Blood Cell Count 2.95 10^6/uL (4.20-5.40); Red Cell Dist. Width 14.3 % (11.5-14.5); White Blood Cell Count 14.9 10^3/uL (4.8-10.8)
[2024-01-11] MEDS: NOVOLOG FLEXPEN SC (09:31)
[2024-01-11] MEDS: NOVOLOG FLEXPEN-LOW RESISTANCE SC ×3 (09:32→17:32)
[2024-01-11] MEDS: PROTONIX 40 MG PO (09:33)
[2024-01-11] MEDS: COREG 12.5 MG PO ×2 (09:34→20:55)
[2024-01-11] MEDS: PLAVIX 75 MG PO (09:34)
[2024-01-11] MEDS: VITAMIN C 500 MG PO (09:34)
[2024-01-11] MEDS: LASIX 20 MG PO (09:34)
[2024-01-11] MEDS: THERAGRAN 1 TABLET PO (09:34)
[2024-01-11] MEDS: LOW STRENGTH ASPIRIN 81 MG PO (09:35)
[2024-01-11] MEDS: APRESOLINE 50 MG PO ×3 (09:35→20:55)
[2024-01-11] MEDS: MIRALAX 17 GRAMS PO (09:40)
--- NOTE | 2024-01-11 10:28 | W.PN.HOSP.TC ---
Addendum entered and electronically signed by Erin Carballo MD 01/11/24 16:41:
I saw and evaluated the patient independently. I reviewed the resident�s note and agree with findings and plan as documented by Dr. Macias.
GENERAL: well developed, well nourished, female in no apparent distress
HEENT: NC/AT
HEART: regular rate and rhythm, +S1, +S2
LUNGS : clear to auscultation bilaterally
ABDOM: soft, nontender, nondistended, + bowel sounds
EXT: no cyanosis, clubbing, or edema--wound vac in place anterior chest wall--mini wound vac to right leg
NEUROLOGIC: grossly intact
Surgical wound dehiscence from mechanical causes--no signs infection as cause--Right leg graft donor site with dehiscence as well--cont wound vac to both--apprec CT surgery--follow WBC count--likely reactive, improving--cont PT/OT
Left ankle tenderness--xray with soft tissue swelling--likely sprain--cont khadra wrap for support--tramadol for pain
Anemia--likely of chronic disease, superimposed by recent surgery, likely postoperative dilution, chronic daily blood draws without time for red blood cell repletion--hemoglobin has drifted down to 7.0--s/p 1 unit packed red blood cells with
improvement to 8.3
recent CAD sp CABG x4--Maintain on asa/plavix/statin home regimen
Chronic systolic CHF without exacerbation--Oral lasix 20mg daily, continue for now.
Type 2 DM insulin requiring--hold for now as blood sugars lower side--SSI only--apprec diabetic nurse practitioner for assistance--family difficult as seem to want her on the insulin regimen that her PCP put her on--blood sugars have been erratic
(low first then stopped standing medications, now creeping upward and adding medications back but daughters feel that the meds are too much)--tried to explain that control blood sugars would help the wound dehiscence heal better
HLD--continue rosuvastatin
GERD-Continue pantoprazole
DVT proph
code status --full code
dispo--[place] when medically clear
Original Note:
Today's Communication/Plan
-
continue PT/OT
trend serum glucose, hemoglobin levels
continue KHADRA wrap of the foot
continue pain medication as needed
Assessment / Plan
Assessment / Plan
Surgical wound dehiscence
Right leg graft donor site
-Patients daughter states she was getting up from toilet on the floor using hand to prop herself up and yoseph to the mechanical tension, this opened up the wound
- some slight chest pain overlying the incision wound- use pain medications as needed
-There is a open wound on the sternum covered by a wound vac that was changed today (01/07) by Cardiothoracic surgery, another open wound on the right leg has PATY dressing changed because of purulent dressing (01/09)
- WBC 14.9 trending down but this is likely reactive observe the trends, rbc- 2.95, hgb- 8/3 (01/10)
- Cardiothoracic surgery Dr. Robins recommends keeping patient for a couple of days to allow wound to heal better
- PT/OT ordered, 3rd day- presents with weakness, impaired functional mobility, will benefit from skilled rehab
-ID consulted (01/05)- Would continue with local care to the wound, with the addition of Tubigrip's to decrease right lower leg edema which can impede healing, no active indications for an infection so presently antibiotics are not required
- orthostatic vitals in the AM ordered
Anemia:
- Pt hgb level is 8.3 (01/10)- post 1 unit of packed rbc's
- pt had one unit blood transfused (01/09), and patient has signed the consent form understanding the risks/benefits.
Left ankle tenderness:
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
Moderate infrapopliteal calcific atherosclerotic disease.
- Ordered oral tramadol 12.5 oral q6h prn for ankle pain (01/07)- continue as needed, patient stated they wanted to use Tylenol instead of the tramadol
- KHADRA wrap ordered for edema of the left ankle (01/08)- continue
CAD sp CABG x4
-Maintain on asa/plavix/statin home regimen
Chronic systolic CHF
-Oral lasix 20mg/d, continue for now.
IDDM
- her glucose level is 126 (01/10). Daughter states that normally its between 100-130.
- Patient refuses 6 units per sliding scale, wants to continue 4 instead (01/10)
- health service coordinator consulted- (01/09),recommend to change inulin regime- hs lantus at 6 units lower dose, resume check with nurse at 3 am, then resume 4 units novolog AC with low corrective insulin
-
HLD
-continue rosuvastatin
GERD
-Continue pantoprazole
Anticipated Discharge: 24 - 48 hours
Subjective/Interval History
-
Date of Service: January 11, 2024
Pt is complaining of slight chest pain, rated 2/10 in intensity. non radiating. She also has left leg pain and its getting better, they discontinued the tramadol and only using tylenol.
Objective Data
-
Labs:
Laboratory Results
01/11/24 01/11/24
04:35 09:24
WBC Cancelled 14.9 H
Hgb Cancelled 8.3 L
Hct Cancelled 25.0 L
Plt Count Cancelled 327
Sodium 143
Potassium 5.0
Chloride 104
Carbon Dioxide 25
BUN 66 H
Creatinine 1.6 H
Glucose 126 H
Calcium 9.4
Total Bilirubin 0.6
AST 27
ALT 16
Alkaline Phosphatase 47
Vital Signs:
Vital Signs
Temp Pulse Resp BP Pulse Ox
99.0 F 75 19 130/65 95
01/11/24 07:47 01/11/24 09:34 01/11/24 07:47 01/11/24 09:34 01/11/24 09:56
I&O
01/10/24 01/11/24 01/12/24
06:59 06:59 06:59
Intake Total 480 / 480 1005 / 1005
Output Total 0 / 0 600 / 600
Balance 480 / 480 405 / 405
Review of Systems
-
History Source: Patient
Cardiac: Reports Chest Pain (chest pain where the incision is located on the sternum)
Musculoskeletal: Reports Other (slight left leg pain)
Physical Exam
-
General: Well Developed and Well Nourished
HEENT: Normocephalic and Atraumatic
Respiratory: Clear to Auscultation
Cardiac: S1/S2
GI: Soft, Nontender and Nondistended
Skin: Warm and Dry
Neuro: Awake, Alert, Oriented and AO x 3
Psych: Calm
Data Reviewed
-
Labs: Labs Reviewed by me and Discussed with Physician
[2024-01-11 11:43] LABS: Glucose - Point of Care 192 mg/dl (70-99)
--- NOTE | 2024-01-11 12:43 | CM ---
Chart reviewed. Patient is independent of ADLS, lives with her disabled daughter in a 1 STH, 0 SANTOS, ambulates with a RW. Patient's other daughter has been staying with her since discharge from [place]. PT evaluation recommending SNF. Patient and
family prefer [facility] willing [facility]. Plan is for the patient to go to [facility]. When medically stable for discharge. CM vinita jensen
[2024-01-11] MEDS: NOVOLOG FLEXPEN 4 UNITS SC ×2 (12:46→17:32)
[2024-01-11] MEDS: FEOSOL 325 MG PO (12:49)
[2024-01-11 16:33] LABS: Glucose - Point of Care 164 mg/dl (70-99)
[2024-01-11] MEDS: NORVASC 5 MG PO (17:30)
[2024-01-11] MEDS: CRESTOR 20 MG PO (17:31)
[2024-01-11] MEDS: LOVENOX 30 MG SC (17:31)
--- NOTE | 2024-01-11 17:32 | W.PN.CT ---
Addendum entered and electronically signed by Almas Robins MD 01/12/24 10:10:
I saw and examined the patient.
The PA's note was reviewed and I agree with the note.
Comment:
Mrs. Evelyn Velasco is doing quite well in terms of her sternal and right lower extremity wounds. At the time of her last VAC change, there was excellent, healthy granulation tissue throughout the base and kelsey of her sternal wound with evidence of
wound contracture already occurring. There was only minor fibrinous exudate. Her right lower extremity rooms were clean and dry with no evidence of active infection. In terms of her overall recovery, ongoing nutritional optimization and physical
therapy will be of paramount importance. The patient has a bed available at [facility] today. We will plan for removal of her VAC dressing with brief transition to wet-to-dry dressing and exchange of her right lower extremity PATY dressing prior to
transfer to SNF. Upon arrival at [facility] will be important to reinstitute wound VAC therapy to her sternal wound with planned VAC changes q. M/W/F. Given the size of her sternal wound, the VAC will require bridging for track pad placement.
Please call with any questions or concerns.
Almas Robins MD
[phone]
Original Note:
Today's Communication / Plan
-
- continue current wound care
Assessment / Plan
-
#Wound dehiscence (mechanical)
- Chest CT 01/05: open wound at the skin surface and subcutaneous emphysema but no abscess
- Strict sternal precautions
- Sternal wound VAC intact and R leg with intact PATY dressing>next sternal VAC change: 01/11
#CAD s/p CABG x4 (11/28)
-Continue aspirin and Plavix
# post-op complete heart block s/p dual-chamber AICD insertion (11/30)
#Chronic Anemia
- Hb 8.3 s/p 1 PRBC for Hb 7 on 01/09
Discussed patient care with: Care Team
Subjective
Procedure
S/p CABG x4 on 11/28
-
Date of Service: January 11, 2024
Objective Data
-
Lab Results
01/11/24 09:24
01/11/24 04:35
Vital Signs
Vital Signs
Temp Pulse Resp BP Pulse Ox
98 F 84 20 138/66 96
01/11/24 15:20 01/11/24 17:28 01/11/24 15:20 01/11/24 17:28 01/11/24 16:01
CT Intake/Output/Weight
01/10/24 01/11/24 01/11/24
18:59 06:59 18:59
Intake Total 525 / 1005 480 / 1005 240 / 240
Output Total 600 / 600 400 / 400
Balance 525 / 405 -120 / 405 -160 / -160
SaO2: 96
Physical Exam
-
General: Awake and Other (sleeps when undisturbed)
Cardiovascular: Regular rate & rhythm
Respiratory: Clear
Sternum: Other (sternal VAC intact)
Incision: Dressing Intact
Extremities: Other (RLE PATY dressing intact)
Data Reviewed
-
Lab Results: Results Reviewed
Medications: Active Meds Reviewed
[2024-01-11] MEDS: NEURONTIN 300 MG PO (20:58)
[2024-01-11 21:21] LABS: Glucose - Point of Care 191 mg/dl (70-99)
--- NOTE | 2024-01-11 22:08 | PTCARENOTE ---
Pt more alert, OOB to chair for most of the day visiting with her family. Sternal discomfort manageable with tylenol. No drainage noted from midsternal wound vac or right lower leg. Telemetry shows sinus rhythm.
[2024-01-12 04:45] VITALS: BP 145/68
[2024-01-12 05:19] LABS: Hematocrit 28.2 % (37.0-47.0); Hemoglobin 9.5 g/dL (12.0-16.0); Mean Corp Hgb Conc. 33.7 g/dL (33.0-37.0); Mean Corpuscular Hgb 28.7 pg (27.0-31.0); Mean Corpuscular Volume 85.2 fL (81.0-99.0); Mean Platelet Volume 9.4 fL (7.4-10.4); Platelet Count 342 10^3/uL (130-400); Red Blood Cell Count 3.31 10^6/uL (4.20-5.40); Red Cell Dist. Width 14.3 % (11.5-14.5); White Blood Cell Count 14.8 10^3/uL (4.8-10.8)
[2024-01-12 05:44] LABS: ALT (SGPT) 20 U/L (0-35); AST (SGOT) 29 U/L (14-36); Albumin 3.5 g/dl (3.5-5.0); Alkaline Phosphatase 63 U/L (38-126); Blood Urea Nitrogen 57 mg/dl (7-17); Calcium 9.8 mg/dl (8.4-10.2); Carbon Dioxide 24 mmol/L (22-30); Chloride 105 mmol/L (98-107); Estimated Creatinine Clearance 27 ml/min; Glucose 142 mg/dl (70-99); Magnesium 2.5 mg/dl (1.6-2.3); Potassium 5.1 mmol/L (3.5-5.1); Sodium 144 mmol/L (135-145); Total Bilirubin 0.5 mg/dl (0.2-1.3); Total Protein 6.9 g/dl (6.3-8.2); eGFR 35.67
--- NOTE | 2024-01-12 06:03 | W.DCSUMMARY ---
Addendum entered and electronically signed by Erin Carballo MD 01/12/24 18:08:
Read, reviewed, and agree. See same day progress note for additional details. Time spent coordinating care, DC planning, review of DC plan of care with resident, transition of care, review of records in EMR, med rec, consults, notes, d/w
consultants, nursing, family, and CM = 40 minutes
Original Note:
Discharge Summary
Discharge Data
Date of Admission: 01/06/24
Date of Discharge: 01/12/24
-
Pending Results: No
Hospital Course
Discharging Physician : Dr. Erin Carballo., Dr. Iris Wilson.
Disposition : [facility] skilled rehab
Primary care physician : Dr. Anne Marie Choi
Principal Discharge diagnosis : Sternal wound dehiscence
Chronic Discharge diagnosis : diabetes mellitus type 2, anemia of chronic disease, left ankle tenderness, coronary artery disease status post CABG x 4, chronic systolic congestive heart failure without exacerbation
Hospital Course : 78-year-old female, Ms. Evelyn Baxter with a past medical history significant for CAD s/p stent 2018, CABG X4 on 11/29/2023 and dual-chamber AICD 12/01/23 (complete heart block as postoperative complication), ICM (ejection fraction
30%), hypertension, hyperlipidemia, IDDM, CKD admitted for the management of surgical site sternal and right leg graft site wound dehiscence.
She also has bleeding at the right leg vein donor site at presentation. Chest CT shows a median sternotomy with wire sternal sutures, open wound at the skin surface and subcutaneous emphysema but no abscess. Cardiothoracic surgery consulted,
evaluated patient wound, no evidence of active infection . Patient placed on wound VAC for her sternal wound and a yashira dressing on the lower extremity wound of the right leg, and was changed as recommended throughout the course of her hospital
stay. Wound VAC changed 3 times during her hospital stay. Labs show an leukocytosis, patient is afebrile, likely reactive . Wound is healing well, strict sternal precautions followed . Infectious disease consulted, no indication for antibiotics,
recommended Tubigrips to decrease right lower leg edema .
Patient reported left ankle tenderness, x-ray of the left ankle showed evidence of soft tissue swelling and edema. Pain control with tramadol/Tylenol as needed and Guanaco wrap.
On 01/10/2024, patient's hemoglobin was 7.0. After consent, patient was transfused with 1 unit of packed red blood cells . Posttransfusion, her hemoglobin was 8.3, continue to observe in outpatient pcp setting.
Patient has type 2 diabetes mellitus .Blood glucose levels running high. quality coordinator is consulted. Patient on insulin aspart 4 units and insulin glargine 4 units, sliding scale insulin.
Patient had an incidental finding of a 12 mm low-density mass in the left lobe of the thyroid, to be followed up outpatient by family physician/thyroid ultrasound.
PT/OT recommend skilled rehab, got placement at [facility]. Patient has improved clinically, hemodynamically stable to be discharged.
Important imaging findings :
CT chest 01/06/2024� There is median sternotomy with wire sternal sutures with open wound at the skin surface and subcutaneous emphysema but no abscess. Small bilateral pleural effusions.
12 mm low-density mass in the left lobe of the thyroid which, if clinically indicated, could be best further evaluated and followed with thyroid ultrasound
Left ankle x-ray 01/08/2024�
1. Mild soft tissue swelling and edema in the medial left ankle.
2. 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
3. Small to moderate-sized plantar calcaneal enthesophyte.
4. Diffuse bone demineralization.
5. Moderate infrapopliteal calcific atherosclerotic disease.
Discharge Plan
-
Patient Disposition: Usp/SNF
Discharge Diagnosis/Procedures: Sternal wound dehiscence, diabetes mellitus type 2, anemia of chronic disease, left ankle tenderness, coronary artery disease status post CABG x 4, chronic systolic congestive heart failure without exacerbation
Diet: Low Cholesterol and Low Sodium
Activity: As tolerated and No strenuous activity
Driving Restrictions: As prior to admission
Bathing Restrictions: None
Other Services: VN, PT and OT
Wound Care: Sternal wound VAC with -125cm pressure, change M-W-F. Aquacell R leg-change q7 days.
Referrals:
[facility] [Outside]
Almas Robins MD [Active] - 01/30/24 2:00 pm (sternal wound assessment)
Anne Marie Choi DO [Family Provider] - in less than 1 week
Prescriptions:
New
Insulin Glargine Lantus [Lantus] 4 UNITS
Subcutaneous Insulin Syringe [Syringe-Insulin] 0 UNIT
As Directed mls/hr SC HS
Reason for use: Diabetes
Ordered By: Iris Hilton MD, Resident
Last Taken: 01/11/24 21:40 0.04 mls
tramadol 25 mg tablet
6.25 mg PO Q6H PRN (Reason: Pain) Qty: 7 0RF
Continued
gabapentin 300 mg Capsule
300 mg PO HS Qty: 3 0RF
multivitamin with folic acid [Tab-A-Danae] 400 mcg tablet
1 tab PO NOON Qty: 30 0RF
carvedilol 12.5 mg Tablet
12.5 mg PO BID Qty: 60 0RF
clopidogrel 75 mg Tablet
75 mg PO DAILY Qty: 30 0RF
(DME) Blood Glucose Test Strip
See Rx Instructions .Route Qty: 200 0RF
Rx Instructions:
testing 4 times a day
amlodipine 5 mg tablet
5 mg PO QPM Qty: 30 0RF
(DME) lancets [Lancets,Ultra Thin] Misc
See Rx Instructions .Route Qty: 200 0RF
Rx Instructions:
As directed
pantoprazole 40 mg Tablet,Delayed Release (Dr/Ec)
40 mg PO DAILY Qty: 30 0RF
ferrous sulfate [FeroSul] 325 mg (65 mg iron) Tablet
325 mg PO NOON Qty: 30 0RF
aspirin 81 mg Tablet,Chewable
81 mg PO DAILY Qty: 30 0RF
hydralazine 50 mg Tablet
50 mg PO TID@0800,1400,2000 30 Days Qty: 90 0RF
rosuvastatin 20 mg Tablet
20 mg PO QPM Qty: 30 0RF
(DME) pen needle, diabetic [BD Ultra-Fine Sarai Pen Needle] 32 gauge x 5/' needle
See Rx Instructions .Route Qty: 200 0RF
Rx Instructions:
4 times a day
insulin aspart U-100 100 unit/mL (3 mL) Insulin Pen
4 unit SC AC Qty: 15 0RF
furosemide 20 mg Tablet
20 mg PO DAILY Qty: 30 0RF
acetaminophen 325 mg Tablet
650 mg PO Q6HPRN PRN (Reason: mild pain) Qty: 100 0RF
Discontinued
Levemir FlexPen 100 unit/mL (3 mL) insulin pen
8 unit SC HS Qty: 15 0RF
Discharge Orders:
Discharge Patient (As Directed); Ordered 01/12/24
Ordered By: Iris Wilson
Care Plan Goals
Care Plan Goals:
Problem: Readiness for enhanced knowledge related to diagnosis and treatment plan
Goal: Understand your diagnosis and treatment plan needs, including medications if applicable.
Instructions: Know your diagnosis, underlying causes and treatment plan options, including medications if applicable. Consult with your health care team to learn about your diagnosis and treatment plan, including medications if applicable.
Discharge Date and Time
Discharge Date/Time: 01/12/24 13:15
Print Language: GREEK
--- NOTE | 2024-01-12 06:03 | W.PN.HOSP.TC ---
Addendum entered and electronically signed by Erin Carballo MD 01/12/24 15:38:
I saw and evaluated the patient independently. I reviewed the resident�s note and agree with findings and plan as documented by Dr. Spaulding.
GENERAL: well developed, well nourished, female in no apparent distress
HEENT: NC/AT
HEART: regular rate and rhythm, +S1, +S2
LUNGS : clear to auscultation bilaterally
ABDOM: soft, nontender, nondistended, + bowel sounds
EXT: no cyanosis, clubbing, or edema--wound vac in place anterior chest wall--mini wound vac to right leg
NEUROLOGIC: grossly intact
Surgical wound dehiscence from mechanical causes--no signs infection as cause--Right leg graft donor site with dehiscence as well--cont wound vac to both--apprec CT surgery--follow WBC count--likely reactive, improving--cont PT/OT
Left ankle tenderness--xray with soft tissue swelling--likely sprain--cont guanaco wrap for support--tramadol for pain
Anemia--likely of chronic disease, superimposed by recent surgery, likely postoperative dilution, chronic daily blood draws without time for red blood cell repletion--hemoglobin has drifted down to 7.0--s/p 1 unit packed red blood cells with
improvement to 9.5
recent CAD sp CABG x4--Maintain on asa/plavix/statin home regimen
Chronic systolic CHF without exacerbation--Oral lasix 20mg daily, continue for now.
Type 2 DM insulin requiring--hold for now as blood sugars lower side--SSI only--apprec diabetic nurse practitioner for assistance--apprec DM OBSTETRICIAN GYNECOLOGIST--cont current inpatient insulin treatment at discharge
HLD--continue rosuvastatin
GERD-Continue pantoprazole
DVT proph
code status --full code
dispo--OK for d/c to SNF
Original Note:
Today's Communication/Plan
-
Discharge today.
Assessment / Plan
Assessment / Plan
78-year-old female with past medical history of CAD s/p stent 2019, CABG X4 on 11/29/2023 and dual-chamber AICD 12/01/23 (complete heart block as postoperative complication), ICM (ejection fraction 30%), hypertension, hyperlipidemia, IDDM, CKD admitted
for the management of surgical site sternal and right leg graft site wound dehiscence.
Impression
Sternal wound dehiscence/ Right leg graft donor site wound dehiscence
CAD s/p CABG X4
Chronic anemia
Left ankle tenderness
Insulin requiring type 2 Diabetes Mellitus
Hyperlipidemia
GERD
Thyroid nodule
Plan
#Sternal wound dehiscence/right leg graft donor site wound dehiscence
CT surgery following
Wound VAC to both the surgical sites
Right leg Paty dressing changed on 01/10/2024 due to purulent soak.
Wound VAC changed on 01/08/2024, 01/10/2024, today( 01/12/24)
ID consulted (01/05)- continue with local care to the wound, with the addition of Tubigrip's
Leukocytosis�WBC at 14.8-likely reactive, patient is afebrile.
No active infection-antibiotics not indicated
Monitor off antibiotics
Strict sternal precautions
Continue PT/OT
#CAD s/p CABG X4
Continue aspirin/Plavix/rosuvastatin
#Chronic normocytic anemia
Possibly from postoperative blood loss or dilutional
Patient received 1 PRBC (01/10/2024) after consent
Posttransfusion�hemoglobin on 01/11/2020 4�8.3. Hemoglobin today 9.5
Monitor CBC
#Left ankle tenderness
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
infrapopliteal calcific atherosclerotic disease.
Pain control with Tylenol/tramadol
Tramadol dose adjusted as per patient requirement.
Continue Guanaco wrap
#Insulin requiring type 2 diabetes mellitus
Patient on SSI
Prior to admission was taking levemir 8 units @ hs and 4 units novolog AC.
Daughter states 'her doctor says she should only get insulin if glucose is above 150'.
Blood sugars unstable as the patient wants to continue her home regimen
dye and chemical coordinator consulted
Patient will be discharged on home insulin regimen.
Monitor
#Hyperlipidemia
Continue rosuvastatin
#GERD
Continue pantoprazole
#Thyroid nodule
Incidental finding and CT chest
CT chest 01/06/2024� 12 mm low-density mass in the left lobe of the thyroid which
Follow-up outpatient with family physician/endocrinology/thyroid ultrasound.
DVT prophylaxis�Lovenox
Anticipated Discharge: Today
Subjective/Interval History
-
Date of Service: January 12, 2024
patient reports no acute overnight events. No fevers, chest pain, SOB.
Objective Data
-
Labs:
Laboratory Results
01/12/24
04:53
WBC 14.8 H
Hgb 9.5 L
Hct 28.2 L
Plt Count 342
Sodium 144
Potassium 5.1
Chloride 105
Carbon Dioxide 24
BUN 57 H
Creatinine 1.5 H
Glucose 142 H
Calcium 9.8
Total Bilirubin 0.5
AST 29
ALT 20
Alkaline Phosphatase 63
Vital Signs:
Vital Signs
Temp Pulse Resp BP Pulse Ox
99.1 F 66 17 115/58 96
01/12/24 04:45 01/11/24 22:38 01/12/24 04:45 01/11/24 22:38 01/12/24 04:45
I&O
01/10/24 01/11/24 01/12/24
06:59 06:59 06:59
Intake Total 480 / 480 1005 / 1005 720 / 720
Output Total 0 / 0 600 / 600 400 / 400
Balance 480 / 480 405 / 405 320 / 320
Review of Systems
-
All other systems: Reviewed and negative (as per hpi)
Physical Exam
-
General: No Apparent Distress
HEENT: Normocephalic and Atraumatic
Respiratory: Clear to Auscultation
Cardiac: S1/S2 and Other (Sternal wound VAC intact)
GI: Soft, Nontender, Nondistended and Normal Bowel Sounds
Musculoskeletal: Other (Right lower extremity PATY dressing intact)
Skin: Warm and Dry
Neuro: Awake, Alert, Oriented and AO x 3
Psych: Calm
--- NOTE | 2024-01-12 07:30 | PN.DE.MGMTRT ---
Insulin Management
- -
01/12/2024 Diabetes Management F/U:
Patient admitted with sternal surgical wound dehiscence. PMH: CHF-systolic, HTN, HLD, CKDIII and T2DM. Pt known to diabetes team from 11/21 s/p CABG.
Prior to admission was taking Levemir 8 units @ HS and 4 units NovoLog AC. A1C 6.3%, cr 1.7, eGFR 30.70.
Patient is awake, resting in bed, offers no complaints, daughter at bedside, discussed diabetes plan of care.
Patient glucose trended down on 01/07 insulin held, then up to > 200 on 01/08, HS Lantus resumed at lower dose, 6 units
01/09, family refused increased dose, agreed to 4 units Lantus @ HS and has been interfering with insulin dosing and refusal of breakfast insulin yesterday.
Fasting glucose 142 this AM. Will continue Lantus 4 units @ hs. 01/10 Premeal range 110 to 192, will cont 4 units NovoLog AC with low corrective insulin.
Spoke to Dtr at bedside at lengthy and explained importance of optimal glucose control to promote wound healing.
Dtr states that the family has been doing a good job at home taking care of their Mom's diabetes needs and that pt's PCP gave them clear instructions to keep blood sugar between 80-150 and that pt should only get insulin if glucose is above 150'.
Will cont to follow.
Diabetes History
- -
Type of Diabetes: 2
Pre-Admission Diabetes Regimen
01/12/24
04:53
Creatinine 1.5 H
Lab Results
Hemoglobin A1c Cancelled 01/08/24 10:24
Insulin Pump Settings
IP Diabetes Regimen
01/11/24 01/11/24 01/11/24
08:16 11:41 16:31
Glucose
POC Glucose 110 H 192 H 164 H
01/11/24 01/12/24
21:21 04:53
Glucose 142 H
POC Glucose 191 H
Meal type: Dinner
Meal type: Lunch
Meal type: Breakfast
Meal type: Breakfast
Amount consumed: 70%
Amount consumed: 75%
Amount consumed: 85%
Amount consumed: 100%
Patient Education
[2024-01-12 07:46] VITALS: BP 141/68
[2024-01-12 08:02] LABS: Glucose - Point of Care 139 mg/dl (70-99)
[2024-01-12] MEDS: TYLENOL 650 MG PO (08:05)
[2024-01-12] MEDS: THERAGRAN 1 TABLET PO (08:06)
[2024-01-12] MEDS: PLAVIX 75 MG PO (08:06)
[2024-01-12] MEDS: LOW STRENGTH ASPIRIN 81 MG PO (08:06)
[2024-01-12] MEDS: COREG 12.5 MG PO (08:06)
[2024-01-12] MEDS: VITAMIN C 500 MG PO (08:06)
[2024-01-12] MEDS: APRESOLINE 50 MG PO (08:06)
[2024-01-12] MEDS: PROTONIX 40 MG PO (08:06)
[2024-01-12] MEDS: NOVOLOG FLEXPEN-LOW RESISTANCE SC ×2 (08:07→11:55)
[2024-01-12] MEDS: LASIX 20 MG PO (08:07)
[2024-01-12] MEDS: NOVOLOG FLEXPEN 4 UNITS SC ×2 (10:26→11:55)
[2024-01-12] MEDS: ULTRAM 12.5 MG PO (10:39)
[2024-01-12 11:17] VITALS: BP 100/49
[2024-01-12 11:47] LABS: Glucose - Point of Care 161 mg/dl (70-99)
[2024-01-12] MEDS: FEOSOL 325 MG PO (11:54)
--- NOTE | 2024-01-12 14:05 | PTCARENOTE ---
"Pt seen by Dr. Carballo. Wound vac removed by and wet saline dressing placed on sternum. Right leg PATY drain also removed, aquacell dressing in place. Telemetry and IV device removed. Discharge instructions reviewed with pt's daughter "Kayleen"who verbalized good understanding . Report called to Barbi at [facility]. Pt bathed, surgical bra and abdominal binder in place. Pt transferred via ambulance stretcher to [facility] with all her belongings."
--- NOTE | 2024-01-12 15:33 | WOUNDNOTE ---
[facility] RN note: Notified 3M via [employer] of rental hospital vac ulta pump stop bill date 01/12/24 and pickling tank operator (work order #[id number]). Notified ROBERT Vann earlier today to place removed hospital rental vac in IVU soiled utility room for pickling tank operator when
patient discharged.
== END 2024-01-12 13:15 | DRG 920 ==
LOC: IVU 11:25
PROVIDERS: Clinical Nurse Specialist Acute Care; Student in an Organized Health Care Education/Training Program; ADMITTING PHYSICIAN Hospitalist; ATTENDING PHYSICIAN Internal Medicine; CONSULT PHYSICIAN Internal Medicine Infectious Disease; CONSULT PHYSICIAN Thoracic Surgery (Cardiothoracic Vascular Surgery); EMERGENCY PHYSICIAN Emergency Medicine; FAMILY PHYSICIAN Family Medicine
PROC: 2W14X6Z Compression of Chest Wall using Pressure Dressing (ICD-10-PCS; 2024-01-07)
PROC: 30233N1 Transfusion of Nonautologous Red Blood Cells into Peripheral Vein, Percutaneous Approach (ICD-10-PCS; 2024-01-10)
DX: T81.31XA Disruption of external operation (surgical) wound, not elsewhere classified, initial encounter (principal); I13.0 Hypertensive heart and chronic kidney disease with heart failure and stage 1 through stage 4 chronic kidney disease, or unspecified chronic kidney disease; I50.22 Chronic systolic (congestive) heart failure; J90 Pleural effusion, not elsewhere classified; D63.1 Anemia in chronic kidney disease; E04.2 Nontoxic multinodular goiter; E78.00 Pure hypercholesterolemia, unspecified; M19.072 Primary osteoarthritis, left ankle and foot; T81.82XA Emphysema (subcutaneous) resulting from a procedure, initial encounter; Y83.2 Surgical operation with anastomosis, bypass or graft as the cause of abnormal reaction of the patient, or of later complication, without mention of misadventure at the time of the procedure; Y92.9 Unspecified place or not applicable; N18.30 Chronic kidney disease, stage 3 unspecified; I25.10 Atherosclerotic heart disease of native coronary artery without angina pectoris; I25.5 Ischemic cardiomyopathy; M77.32 Calcaneal spur, left foot; M81.0 Age-related osteoporosis without current pathological fracture; K21.9 Gastro-esophageal reflux disease without esophagitis; E11.22 Type 2 diabetes mellitus with diabetic chronic kidney disease; Z95.1 Presence of aortocoronary bypass graft; Z95.5 Presence of coronary angioplasty implant and graft; Z95.810 Presence of automatic (implantable) cardiac defibrillator; I25.2 Old myocardial infarction; Z82.49 Family history of ischemic heart disease and other diseases of the circulatory system; Z79.02 Long term (current) use of antithrombotics/antiplatelets; Z79.82 Long term (current) use of aspirin; Z79.4 Long term (current) use of insulin
CPT/HCPCS: 71250; 73600; 80048; 80053; 82962; 83036; 83520; 83735; 84134; 84439; 84443; 85025; 85027; 86850; 86900; 86901; 86920; 97163; 97167; 97530; 99285; P9016

== ENCOUNTER → 2024-02-09 12:26 | Outpatient (REF) | payer MEDICARE, SELFPAY | LOC: WOUND 12:26 | PROVIDERS: ATTENDING PHYSICIAN Surgery; FAMILY PHYSICIAN Family Medicine | DX: T81.328A Disruption or dehiscence of closure of other specified internal operation (surgical) wound, initial encounter (principal); Y83.8 Other surgical procedures as the cause of abnormal reaction of the patient, or of later complication, without mention of misadventure at the time of the procedure; L97.212 Non-pressure chronic ulcer of right calf with fat layer exposed; I25.5 Ischemic cardiomyopathy; I50.22 Chronic systolic (congestive) heart failure; N18.32 Chronic kidney disease, stage 3b; I25.10 Atherosclerotic heart disease of native coronary artery without angina pectoris; Z79.4 Long term (current) use of insulin; E11.29 Type 2 diabetes mellitus with other diabetic kidney complication | CPT/HCPCS: 99204 ==

== ENCOUNTER 2024-02-10 22:35 | Inpatient (IN) | payer MEDICARE, SELFPAY ==
[2024-02-10 18:29] VITALS: BP 141/70
[2024-02-10 18:34] VITALS: BP 141/70
[2024-02-10 18:43] VITALS: BMI 27.1
--- NOTE | 2024-02-10 18:50 | ED.GENMED ---
History of Present Illness
General
Chief Complaint: Breathing Problem
Source: patient
Exam Limitations: none
Time Seen by Provider: 02/10/24 18:37
History of Present Illness
History of Present Illness:
78-year-old female with history of hypertension, coronary artery disease CHF insulin-dependent diabetes presents with progressively worsening shortness of breath since this morning. Of note patient had coronary artery bypass surgery in October of this
year and subsequently had a pacemaker placed. She is on aspirin and Plavix. 1 week ago they increased her Lasix to 40 mg daily taken 20 mg twice a day. This was increased from 20 mg once a day. I did this due to increased fluid retention in the
legs. They deny any weight gain. They note no significant improvement after increased Lasix. Patient does note some chest discomfort occasionally. She had a wound VAC on her chest that was removed yesterday by the wound care clinic.
Past History
Past History
ED Past Medical History: CAD, CHF and HTN
ED Past Surgical History: Cardiac (CABG)
Social History
Tobacco: Non-smoker
Alcohol: None
Drug: None
Personal:
Living: with family
Phy Exam
Physical Exam
Physical Exam:
General: Slightly ill-appearing female with slight increased work of breathing
HEENT: Normocephalic atraumatic
Heart: Regular rate and rhythm
Lungs: Breath sounds slightly diminished bilaterally
Abdomen is soft nontender nondistended
Extremities: Pitting edema bilateral lower extremities
Skin: Warm no rash
Scores
Heart Failure Risk
Heart Failure Risk Score: Not Applicable
Course
Orders/Labs/Results
Orders:
Orders
02/10/24 18:36
Electrocardiogram (*1) Urgent
Reason for Study: Shortness of Breath
02/10/24 18:37
EKG- Treatment ONCE
02/10/24 18:48
Interrogate Pacemaker- Treatment ONCE
CR Chest - 2 Views Urgent
Comment:
Reason For Exam: sob
02/10/24 18:51
CMP [Comprehensive Metabolic Panel] Urgent
Complete Blood Count/With Diff Urgent
Ferritin Urgent
Comment: ADD ON
Iron Urgent
Comment: ADD ON
NT-proBNP Urgent
Total Iron Binding Urgent
Comment: ADD ON
Troponin I Urgent
02/10/24 20:51
Add On- LAB Urgent
Tests Added?: iron, ferritin, TIBC
02/10/24 21:15
Blood Bank Products [* Blood Bank Products] Urgent
Blood Bank Products: *Packed RBC Leuko(PRBC's)
Quantity: 1
Transfuse Today: Yes
Reason: Anemia
Abnormal Lab Results
02/10/24
18:51
WBC 23.8 H 10^3/uL
(4.8-10.8)
RBC 2.73 L 10^6/uL
(4.20-5.40)
Hgb 7.3 L g/dL
(12.0-16.0)
Hct 22.1 L %
(37.0-47.0)
MCH 26.7 L pg
(27.0-31.0)
RDW 16.8 H %
(11.5-14.5)
Plt Count 608 H 10^3/uL
(130-400)
Abs Immat Gran (auto) 0.2 H 10^3/uL
(0-0.05)
Absolute Neuts (auto) 17.9 H 10^3/uL
(1.4-6.5)
Absolute Monos (auto) 1.8 H 10^3/uL
(0.1-0.6)
Immature Gran % 1.0 H %
(0-0.5)
Lymphocytes % 14.1 L %
(20.5-51.1)
BUN 71 H mg/dl
(7-17)
Creatinine 2.2 H mg/dL
(0.6-1.0)
Glucose 193 H mg/dl
(70-99)
Albumin 3.3 L g/dl
(3.5-5.0)
02/10/24 18:51
02/10/24 18:51
Vital Signs
Initial and Last Documented VS:
Initial Vital Signs
Temp Pulse Resp BP Pulse Ox
98.5 F 88 18 141/70 95
02/10/24 18:29 02/10/24 18:29 02/10/24 18:29 02/10/24 18:29 02/10/24 18:29
Last Documented Vital Signs
Temp Pulse Resp BP Pulse Ox
98.5 F 88 18 141/70 95
02/10/24 18:34 02/10/24 18:34 02/10/24 18:34 02/10/24 18:34 02/10/24 18:34
MDM/Problems Addressed
Differential Diagnosis Includes:
Shortness of breath. Differential could include CHF flare versus pleural effusion versus anemia versus electrolyte abnormality
Will check labs including BNP and chest x-ray. Monitor need for oxygen replacement.
I reviewed prior echocardiogram that was performed in October of this year which demonstrates an ejection fraction of 35 to 40%.
She had a [employer] pacemaker/defibrillator placed at the end of October as well. Will interrogate pacemaker
*Critical Care Note
Total Time (30-74mins, 75-104mins- exclusive of procedures): Not Applicable
Update Note
Update Note:
Patient reevaluated. Still short of breath and fatigued. Chest x-ray shows moderate pleural effusion on the right. Hemoglobin is down 2 g to 7.3. Consent obtained and 1 unit of PRBC ordered. Creatinine also slightly elevated at 2.2. Patient
shortness of breath and fatigue is likely multifactorial as a combination of anemia and volume overload. Discussed with emergency room attending Daniel mid to hospital
ED Attending Note
-
Portions of this chart may have been created with voice recognition software.� Occasional wrong word or��sound alike� substitutions may have occurred due to the inherent limitations of voice recognition software.
Discharge Plan
Departure
Patient Disposition: Admit
Date of Disposition: 02/10/24
Time of Disposition: 21:19
Presentation/result/management discussed w/ accepting MD/DO: Hospitalist
Discharge Problem:
Anemia, Pleural effusion
Prescriptions:
No Action
gabapentin 300 mg Capsule
300 mg PO HS Qty: 3 0RF
multivitamin with folic acid [Tab-A-Danae] 400 mcg tablet
1 tab PO NOON Qty: 30 0RF
Insulin Glargine Lantus [Lantus] 4 UNITS
Subcutaneous Insulin Syringe [Syringe-Insulin] 0 UNIT
As Directed mls/hr SC HS
Reason for use: Diabetes
Ordered By: Rosa Wilson,Iris Rodriguez MD, Resident
Last Taken: Unknown
carvedilol 12.5 mg Tablet
12.5 mg PO BID Qty: 60 0RF
clopidogrel 75 mg Tablet
75 mg PO DAILY Qty: 30 0RF
(DME) Blood Glucose Test Strip
See Rx Instructions .Route Qty: 200 0RF
Rx Instructions:
testing 4 times a day
amlodipine 5 mg tablet
5 mg PO QPM Qty: 30 0RF
(DME) lancets [Lancets,Ultra Thin] Misc
See Rx Instructions .Route Qty: 200 0RF
Rx Instructions:
As directed
pantoprazole 40 mg Tablet,Delayed Release (Dr/Ec)
40 mg PO DAILY Qty: 30 0RF
ferrous sulfate [FeroSul] 325 mg (65 mg iron) Tablet
325 mg PO NOON Qty: 30 0RF
aspirin 81 mg Tablet,Chewable
81 mg PO DAILY Qty: 30 0RF
hydralazine 50 mg Tablet
50 mg PO TID@0800,1400,2000 30 Days Qty: 90 0RF
rosuvastatin 20 mg Tablet
20 mg PO QPM Qty: 30 0RF
(DME) pen needle, diabetic [BD Ultra-Fine Sarai Pen Needle] 32 gauge x 5/32' needle
See Rx Instructions .Route Qty: 200 0RF
Rx Instructions:
4 times a day
tramadol 25 mg tablet
6.25 mg PO Q6H PRN (Reason: Pain) Qty: 7 0RF
insulin aspart U-100 100 unit/mL (3 mL) Insulin Pen
4 unit SC AC Qty: 15 0RF
furosemide 20 mg Tablet
20 mg PO DAILY Qty: 30 0RF
acetaminophen 325 mg Tablet
650 mg PO Q6HPRN PRN (Reason: mild pain) Qty: 100 0RF
Referrals:
UNKNOWN - PT NOT,INTERVIEWE [Family Provider] -
Interventions
Interventions:
*Risk Screen - Suicide Last Done: 02/10/24 18:34
*General Assessment Last Done: 02/10/24 18:34
*Neglect/Abuse Screening Last Done: 02/10/24 18:34
ED- Fall Risk Assessment Last Done: 02/10/24 18:38
*ED COVID-19 Vaccine History Last Done: 02/10/24 18:41
ED- Cardiac Assessment Last Done: 02/10/24 18:38
ED- Pulmonary Assessment Last Done: 02/10/24 18:38
Discharge Date and Time
Print Language: POLISH
[2024-02-10 19:00] LABS: % Basophils 0.4 % (0-2); % Eosinophils 1.7 % (0-6); % Lymphocytes 14.1 % (20.5-51.1); % Monocytes 7.7 % (1.7-9.3); % Neutrophils 75.1 % (42.2-75.2); Absolute Basophils 0.1 10^3/uL (0-0.2); Absolute Eosinophils 0.4 10^3/uL (0-0.7); Absolute Immature Granulocytes 0.2 10^3/uL (0-0.05); Absolute Lymphocytes 3.4 10^3/uL (1.2-3.4); Absolute Monocytes 1.8 10^3/uL (0.1-0.6); Absolute Neutrophils 17.9 10^3/uL (1.4-6.5); Hematocrit 22.1 % (37.0-47.0); Hemoglobin 7.3 g/dL (12.0-16.0); Mean Corpuscular Hgb 26.7 pg (27.0-31.0); Mean Platelet Volume 8.3 fL (7.4-10.4); Nucleated Red Blood Cells % 0 %; Platelet Count 608 10^3/uL (130-400); Red Blood Cell Count 2.73 10^6/uL (4.20-5.40); Red Cell Dist. Width 16.8 % (11.5-14.5); White Blood Cell Count 23.8 10^3/uL (4.8-10.8)
[2024-02-10 19:12] LABS: ALT (SGPT) 20 U/L (0-35); AST (SGOT) 21 U/L (14-36); Albumin 3.3 g/dl (3.5-5.0); Alkaline Phosphatase 78 U/L (38-126); Blood Urea Nitrogen 71 mg/dl (7-17); Calcium 9.7 mg/dl (8.4-10.2); Carbon Dioxide 25 mmol/L (22-30); Chloride 103 mmol/L (98-107); Glucose 193 mg/dl (70-99); Potassium 3.8 mmol/L (3.5-5.1); Sodium 145 mmol/L (135-145); Total Bilirubin 0.2 mg/dl (0.2-1.3); Total Protein 7.2 g/dl (6.3-8.2); eGFR 22.53
[2024-02-10 19:24] LABS: NT-proBNP 6770 pg/ml; Troponin I 0.025 ng/ml
[2024-02-10 20:00] VITALS: BP 134/101
[2024-02-10 21:00] VITALS: BP 142/83
[2024-02-10 21:27] LABS: Iron 36 ug/dl (37-170)
[2024-02-10 21:36] LABS: Percent Saturation 18 % (20-50); Total Iron Binding Capacity 197 ug/dl (265-497)
[2024-02-10] MEDS: TYLENOL 1000 MG PO (21:46)
[2024-02-10] MEDS: NEURONTIN 300 MG PO (21:46)
--- NOTE | 2024-02-10 21:57 | HPS.HSE ---
Family Physician
-
Family Physician: INTERVIEWE UNKNOWN - PT NOT
Chief Complaint
-
Shortness of Breath
History of Present Illness
Patient is a 78 y/o female past medical history of CAD with recent CABG, CHF, DM and CKD who presents with shortness of breath. Patient reports increasing shortness of breath since this morning. She reports increased dyspnea on exertion. She
reports she was recently on an increased dose of Lasix for one week which she completed three days ago. She reports some improvement in her lower extremity with the increased dose of Lasix. She denies any chest pain or palpitations. She denies
dizziness/lightheadedness. She denies black/bloody stools.
Medical History
Past Medical History
Past Medical History: Reports Other
Additional Past Medical History:
Coronary Artery Disease s/p prior cardiac stents and recent CABG in October 2023
Chronic HFrEF
Complete Heart Block s/p Pacemaker/ICD
Insulin-Dependent Diabetes Mellitus
Essential Hypertension
Hyperlipidemia
CKD Stage III
GERD
Past Surgical History: Reports Other
Additional Past Surgical History:
CABG - October 2023
Cardiac Stents
Cholecystectomy
Social History
Tobacco: Non-smoker
Alcohol: None
Drug: None
Living: Alone
Family History
Family History: Not pertinent
Allergies / Home Medications
Allergies reflects when Allergies were last updated in [facility].
Home Medications with original date entered in [facility]
Allergy/Medication List:
Allergies
Allergy/AdvReac Type Severity Reaction Status Date / Time
No Known Allergies Allergy Verified 01/06/24 09:03
Home Medications
furosemide 20 mg tablet 20 mg PO DAILY #30 tabs 12/19/23
gabapentin 300 mg capsule 300 mg PO HS Pain #3 caps 01/11/24
amlodipine 5 mg tablet 5 mg PO QPM Blood pressure #30 tabs 01/12/24
aspirin 81 mg chewable tablet 81 mg PO DAILY Heart disease/condition #30 tabs 01/12/24
carvedilol 12.5 mg tablet 12.5 mg PO BID Heart disease/condition #60 tabs 01/12/24
clopidogrel 75 mg tablet 75 mg PO DAILY Heart disease/condition #30 tabs 01/12/24
hydralazine 50 mg tablet 50 mg PO TID@0800,1400,2000 Blood pressure 30 days #90 tabs 01/12/24
rosuvastatin 20 mg tablet 20 mg PO QPM Heart disease/condition #30 tabs 01/12/24
acetaminophen 500 mg tablet 1,000 mg PO BID 02/10/24
ascorbic acid (vitamin C) 500 mg tablet (Vitamin C) 500 mg PO DAILY@1200 02/10/24
ferrous sulfate 325 mg (65 mg iron) tablet (FeroSul) 325 mg PO DAILY@1200 Supplement 02/10/24
insulin aspart U-100 100 unit/mL (3 mL) subcutaneous pen 1 sliding scale dose SC DIRECTED 02/10/24
insulin glargine 100 unit/mL (3 mL) subcutaneous pen (Lantus Solostar U-100 Insulin) 4 unit SC QPM 02/10/24
multivitamin with folic acid 400 mcg tablet (Tab-A-Danae) 1 tab PO DAILY Supplement 02/10/24
Review of Systems
-
A 12 point ROS was completed and negative except as noted: Yes
Constitutional: Denies Fever or Chills
Respiratory: Reports Trouble Breathing; Denies Cough
Cardiac: Denies Chest Pain or Palpitations
Physical Exam
Vital Signs
Vital Signs
Temp Pulse Resp BP Pulse Ox
98.5 F 88 18 141/70 95
02/10/24 18:34 02/10/24 18:34 02/10/24 18:34 02/10/24 18:34 02/10/24 18:34
Physical Exam
General: Well Developed and Other (Slightly Ill Appearing, and Appears Quite Pale)
HEENT: Anicteric, Moist mucous membranes and Oxygen (Nasal Cannula)
Respiratory: Rales (Left Base) and Decreased Breath Sounds (Right Base)
Cardiac: S1/S2, Regular Rhythm and JVD; No Tachycardia
GI: Soft and Non Tender
Musculoskeletal: No Clubbing, No Cyanosis and Other (+1 pitting non-pitting edema bilateral lower extremity)
Skin: Warm and Dry
Neuro: Awake, Alert and Nonfocal/grossly intact (Overall generally weak)
Psych: Calm
Laboratory Results
-
02/10/24 18:51
02/10/24 18:51
Laboratory Results
Total Bilirubin 0.2 mg/dl (0.2-1.3) 02/10/24 18:51
AST 21 U/L (14-36) 02/10/24 18:51
ALT 20 U/L (0-35) 02/10/24 18:51
Alkaline Phosphatase 78 U/L (38-126) 02/10/24 18:51
Troponin I 0.025 ng/ml 02/10/24 18:51
Data Reviewed
-
Diagnostic Radiology: Image Personally Visualized and interpreted (CXR: Right Pleural Effusion)
Lab Data: Labs Reviewed by me
Impression/Plan
-
Shortness of Breath suspect multifactorial related to pleural effusion, anemia and acute heart failure
Right Pleural Effusion
-Consult IR for diagnostic and therapeutic thoracentesis
Acute on Chronic Anemia
-Transfuse 1 units PRBCs
-Check iron studies, vitamin b12 and folic acid
-Heme-test stools
-Continue iron supplement with Vitamin C
Acute on Chronic HFrEF
-Consult Cardiology
-Give one dose of Lasix 40mg IV with blood transfusion
-Monitor Is&Os and Daily Weights
KELLIE on CKD III
-Consult Nephrology
-Trend creatinine
Recent Sternal and Right LE Graft Donor Site Wound Dehiscence
-Consult Wound Care
Coronary Artery Disease s/p prior cardiac stents and CABG in October 2023
-Continue aspirin and Plavix
Insulin-Dependent Diabetes Mellitus
-HgbA1c 6.3 in Dec 2023
-Sugars running on the low side per family
-Hold Lantus
-Monitor sugars and continue coverage insulin
Essential Hypertension
-Continue Amlodipine, Coreg, and Hydralazine with old parameters
Hyperlipidemia
-Continue Crestor
Hx Complete Heart Block s/p Pacemaker/ICD
DVT proph: SCDs
Code Status: Full Code
[2024-02-10 22:00] VITALS: BP 119/84
--- NOTE | 2024-02-10 22:11 | W.PN.UPDATE ---
Update Note
Progress Note Update
This note serves as an addendum to the H&P by manager manufacturing [employer] Regina BERTRAND
HPI
78F Non smoker, lives with family, HX CABG x4 (11/29/23) in [place], AICD, PPM, HX mechanical Wound dehiscence ( 01/06/24) HX chr HFrEF , LVEF 35-40. stage I diastoloc dysfunction, HTN, IDDM sen at ER
- for progressive SoB since this morning
- last week, increased lasix to 40daily from 20mg BID
- no significant improvement after increased Lasix.
- denied wt gain
- some chest discomfort occasionally.
- wound VAC on her chest that was removed yesterday by the wound care clinic.
Reviewed VS: unremarakbel VSS
Wt. 64.3 kg ( 01/08/24) - current Wt 65.7 ( 02/10/24)
PE
Gen: looks tired and plae complexion
HEENT: POS JVD
Neck: supple
Lungs: reduce AR on Rt post lower chest
Cor: RRRS1 s2
Abdomen: soft NT NG NRT
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
MS: b/l 3 plus pitting edema
Psych: limited due to too tired
Data
Anemia: Current Hgb 7.3 . Baseline Hgb low to mid 7s
Acute on chr leucocytosis
Acute thrombocytosis
BUN 71
Cr 2.2: baseline 1.6 - 1.8
eGFR 22: baseline is low 30s c/w CKD3b
TPNI 0.025
pBNP 6770: was 29750 on 11/24/23
BG 193
CXR: Moderate right-sided pleural effusion with associated atelectasis.
EKG
NORMAL SINUS RHYTHM
LEFT AXIS DEVIATION
LEFT BUNDLE BRANCH BLOCK
ABNORMAL ECG
WHEN COMPARED WITH ECG OF 02-DEC-2023 05:58,
SINUS RHYTHM HAS REPLACED ELECTRONIC VENTRICULAR PACEMAKER
11/29/23 SUPRIYA
LVEF 35 to 40%
Stage I diastolic dysfunction
Normal right ventricular size and function.
ASSESSMENT & PLAN
Progressive SoB: suspect multifactorial origins
Significant elevated proBNP but less than before
Clinically hypervolemic/ anasarca
DDX: symptomatic Rt moderate pleural effusion with atelectasis vs. acute on chr HFrEF vs. symptomatic anemia
- check admission wt. and daily wt.
- Empiric IV Lasix [address] 1 unit of PRBC
- daily BMP
- CBC Card consult
- IR consult for Rt thoracentesis
Interval Hgb drop DDX: Hemodilution due to hypervolemia vs Blood loss
Normocytic severe anemia seems contributing some elements of current dyspnea
- Blood consent scanned
- agree with 1 PRBC Tx - to give IV Lasix 40x1 fdc thru 1 unit of PRBC
- check HoB stool
- f/u Hgb with IV Diuresis
KELLIE with Cr 2.2 DDX: Cardiorenal syndrome vs overdiuresis
Underlying CKD3b with baseline baseline 1.6 - 1.8
- IV Lasix 40once and f/u Cr in AM
- Renal consult
HX Wound dehiscence (mechanical)
- Removed wound VAC yesterday at [facility]
- [facility] care consult
HX CAD sp CABG x4 (11/29/23)
-Maintain on asa/Plavix/statin home regimen
IDDM
- add ISS low
- no longer on basal/bolus regime
HLD
- c/w rosuvastatin
GERD
- c/w pantoprazole
DVT Px: SCD
Code: Full
IP TLM
[2024-02-10 23:00] VITALS: BP 144/71
[2024-02-11] VITALS (13 sets, daily range): BP systolic 130–153; BP diastolic 67–85; BMI 19.8
[2024-02-11 00:07] LABS: Folate > 20.0 ng/ml (2.76-20); Vitamin B12 > 1000 pg/ml (239-931)
[2024-02-11 00:46] LABS: Glucose - Point of Care 196 mg/dl (70-99)
[2024-02-11] MEDS: LASIX 40 MG IV ×2 (03:21→11:35)
[2024-02-11] MEDS: TYLENOL 650 MG PO ×4 (05:59→22:10)
--- NOTE | 2024-02-11 06:42 | PTCARENOTE ---
Patient states that she has chest pain rated 10/10. See chart for vital signs. EKG done and placed on chart. Tylenol po given. PHOTOENGRAVING ETCHER APPRENTICE Rin Silvestre made aware. No new orders. Will report information to dayshift RN.
[2024-02-11 07:22] LABS: Glucose - Point of Care 150 mg/dl (70-99)
[2024-02-11 08:33] LABS: Hematocrit 26.5 % (37.0-47.0); Mean Corpuscular Volume 82.6 fL (81.0-99.0); Mean Platelet Volume 8.9 fL (7.4-10.4); Platelet Count 527 10^3/uL (130-400); Red Blood Cell Count 3.21 10^6/uL (4.20-5.40); Red Cell Dist. Width 16.4 % (11.5-14.5); White Blood Cell Count 20.9 10^3/uL (4.8-10.8)
[2024-02-11] MEDS: COREG 12.5 MG PO ×2 (08:35→20:21)
[2024-02-11] MEDS: PLAVIX 75 MG PO (08:35)
[2024-02-11] MEDS: APRESOLINE 50 MG PO ×3 (08:35→20:20)
[2024-02-11] MEDS: LOW STRENGTH ASPIRIN 81 MG PO (08:35)
[2024-02-11] MEDS: NOVOLOG FLEXPEN-LOW RESISTANCE 1 UNITS SC ×2 (08:36→17:43)
[2024-02-11 08:58] LABS: Calcium 9.8 mg/dl (8.4-10.2); Carbon Dioxide 24 mmol/L (22-30); Chloride 104 mmol/L (98-107); Estimated Creatinine Clearance 22 ml/min; Glucose 140 mg/dl (70-99); Magnesium 2.5 mg/dl (1.6-2.3); Potassium 3.7 mmol/L (3.5-5.1); Sodium 146 mmol/L (135-145); Total Protein 7.2 g/dl (6.3-8.2); eGFR 25.26
[2024-02-11 09:13] LABS: Blood Urea Nitrogen 67 mg/dl (7-17)
[2024-02-11 10:27] LABS: LDH 263 U/L (120-246)
[2024-02-11] MEDS: FEOSOL 325 MG PO (11:35)
[2024-02-11] MEDS: VITAMIN C 500 MG PO (11:35)
[2024-02-11] MEDS: SENOKOT-S 1 TABLET PO ×2 (11:35→20:20)
[2024-02-11 11:42] LABS: Glucose - Point of Care 210 mg/dl (70-99)
[2024-02-11] MEDS: NOVOLOG FLEXPEN-LOW RESISTANCE 2 UNITS SC (11:47)
--- NOTE | 2024-02-11 11:48 | W.CON.NEPH ---
Consultation
-
Date/Time Consultation Requested: 02/11/2024 8 AM
Date/Time Consultation Performed: [id number] noon
Requesting Provider: Dr. Virk
Performing Provider: Dr. Lau
Reason for Consultation: KELLIE
Medical History
-
Chief Complaint: Shortness of breath
History of Present Illness:
Ms. Baxter is a 78YOF with HTN controlled on a multidrug regimen, T2DM controlled with insulin therapy, Takotsubo cardiomyopathy, HFpEF on chronic diuretic therapy which has been stable. She came to the emergency room yesterday after 1 day of
worsening shortness of breath beginning in the morning. She also has dyspnea on exertion. About a week ago she had taken a higher dose of Lasix for a short course given lower extremity edema which had improved somewhat.
At the time of admission she was noted to have elevation of her creatinine at 2.2, higher than her baseline of 1.5 representing acute kidney injury
Past Medical History
Coronary Artery Disease s/p prior cardiac stents and recent CABG in October 2023
Chronic HFrEF
Complete Heart Block s/p Pacemaker/ICD
Insulin-Dependent Diabetes Mellitus
Essential Hypertension
Hyperlipidemia
CKD Stage IIIb
GERD
CABG - October 2023
Cardiac Stents
Cholecystectomy
Past Medical History: Other
Past Surgical History: None
Social History
Tobacco: Non-Smoker
Alcohol: None
Drug: None
Living: With Family
Family History
Family History: Not Pertinent
Allergies / Home Medications
Allergy/AdvReac Type Severity Reaction Status Date / Time
No Known Allergies Allergy Verified 01/06/24 09:03
�Medication �Instructions �Recorded �Confirmed �Type
furosemide 20 mg tablet 20 mg PO DAILY #30 tabs 12/19/23 02/10/24 Rx
gabapentin 300 mg capsule 300 mg PO HS Pain #3 caps 01/11/24 02/10/24 Rx
amlodipine 5 mg tablet 5 mg PO QPM Blood pressure #30 tabs 01/12/24 02/10/24 Rx
aspirin 81 mg chewable tablet 81 mg PO DAILY Heart 01/12/24 02/10/24 Rx
disease/condition #30 tabs
carvedilol 12.5 mg tablet 12.5 mg PO BID Heart 01/12/24 02/10/24 Rx
disease/condition #60 tabs
clopidogrel 75 mg tablet 75 mg PO DAILY Heart 01/12/24 02/10/24 Rx
disease/condition #30 tabs
hydralazine 50 mg tablet 50 mg PO TID@0800,1400,2000 Blood 01/12/24 02/10/24 Rx
pressure 30 days #90 tabs
rosuvastatin 20 mg tablet 20 mg PO QPM Heart 01/12/24 02/10/24 Rx
disease/condition #30 tabs
acetaminophen 500 mg tablet 1,000 mg PO BID 02/10/24 02/10/24 History
ascorbic acid (vitamin C) 500 mg 500 mg PO DAILY@1200 02/10/24 02/10/24 History
tablet (Vitamin C)
ferrous sulfate 325 mg (65 mg 325 mg PO DAILY@1200 Supplement 02/10/24 02/10/24 History
iron) tablet (FeroSul)
insulin aspart U-100 100 unit/mL 1 sliding scale dose SC DIRECTED 02/10/24 02/10/24 History
(3 mL) subcutaneous pen
insulin glargine 100 unit/mL (3 4 unit SC QPM 02/10/24 02/10/24 History
mL) subcutaneous pen (Lantus
Solostar U-100 Insulin)
multivitamin with folic acid 400 1 tab PO DAILY Supplement 02/10/24 02/10/24 History
mcg tablet (Tab-A-Danae)
tramadol 12.5 PO Q12H PRN pain 02/11/24 History
Review of Systems
-
Shortness of breath, no chest pain
All other systems: Negative unless noted
Physical Exam
Vital Signs
Vital Signs
Temp Pulse Resp BP Pulse Ox
98.9 F 89 18 135/69 99
02/11/24 07:45 02/11/24 07:45 02/11/24 07:45 02/11/24 07:45 02/11/24 07:45
Lab Results
WBC 20.9 10^3/uL (4.8-10.8) H 02/11/24 06:47
RBC 3.21 10^6/uL (4.20-5.40) L 02/11/24 06:47
Hgb 9.0 g/dL (12.0-16.0) L D 02/11/24 06:47
Hct 26.5 % (37.0-47.0) L 02/11/24 06:47
Plt Count 527 10^3/uL (130-400) H 02/11/24 06:47
Sodium 146 mmol/L (135-145) H 02/11/24 06:47
Potassium 3.7 mmol/L (3.5-5.1) 02/11/24 06:47
Chloride 104 mmol/L (98-107) 02/11/24 06:47
Carbon Dioxide 24 mmol/L (22-30) 02/11/24 06:47
BUN 67 mg/dl (7-17) H 02/11/24 06:47
Creatinine 2.0 mg/dL (0.6-1.0) H 02/11/24 06:47
eGFR 25.26 02/11/24 06:47
Glucose 140 mg/dl (70-99) H 02/11/24 06:47
Calcium 9.8 mg/dl (8.4-10.2) 02/11/24 06:47
Zqg-M-Etynhlswwjj Pept 6770 pg/ml 02/10/24 18:51
Albumin 3.3 g/dl (3.5-5.0) L 02/10/24 18:51
Laboratory Tests
01/12/24
04:53
Sodium 144
BUN 57 H
Creatinine 1.5 H
Physical Exam
Patient is awake alert oriented and in no distress. Mood and affect were pleasant, insight and judgment were good. Pupils are equal round and reactive to light, extraocular movements are intact, sclera were anicteric. Hearing was normal, ears and
nose are intact. Oropharynx was clear. Neck was supple with trachea midline and no thyromegaly. Heart was regular rate and rhythm without rubs. Lower extremities without edema. Lungs were clear to auscultation bilaterally and with normal
excursion. Abdomen was soft, nontender, with normal active bowel sounds, and no hepatosplenomegaly. Skin was without rash and with normal turgor.
Data Reviewed
-
Radiology: Image Personally Visualized and interpreted (Chest x-ray on 02/10/2024 by my reading shows cardiomegaly, right effusion)
Medical Tests (Nuc Med, Echo etc): Image Personally Visualized and interpreted (EKG on 02/11/2024 by my reading shows normal sinus rhythm left axis deviation left bundle branch block) and Report Reviewed by me (Echocardiogram on 11/23/2023 shows
ejection fraction 30%)
Labs: Labs Reviewed by me
Old Records: Reviewed
Assessment/Plan
-
Assessment:
CAD
KELLIE on CKD3b (1.5)
SOB
HTN
HFrEF, decompensated
Edema
Diabetes mellitus type 2
Leukocytosis
Anemia
PPM
Plan:
Check urine studies
Diuresis with IV Lasix
Follow BMP
Check blood cultures
Check urine culture
Baseline creatinine uncertain, likely close to 1.5
Discussed with daughter and patient regarding cardiorenal syndrome
[2024-02-11 15:38] LABS: Urine Albumin Trace (Neg - Trace); Urine Bilirubin Negative (Negative); Urine Character Clear (Clear); Urine Color Straw; Urine Glucose Negative (Negative); Urine Ketone Negative (Negative); Urine Leukocyte Trace (Negative); Urine Nitrite Negative (Negative); Urine Occult Blood Negative (Negative); Urine Specific Gravity 1.015 (<1.030); Urine Urobilinogen Negative (Neg - 1+)
--- NOTE | 2024-02-11 15:39 | W.PN.HOSP.TC ---
Today's Communication/Plan
-
cont iv diuresis
f/u blood cultures, and WBC
monitor respiratory status, and possible thoracentesis if pleural effusion does not improve
Assessment / Plan
Assessment / Plan
General: Well Developed and Other (Slightly Ill Appearing, and Appears Quite Pale)
HEENT: Anicteric, Moist mucous membranes and Oxygen (Nasal Cannula)
Respiratory: Rales (Left Base) and Decreased Breath Sounds (Right Base)
Cardiac: S1/S2, Regular Rhythm and JVD; No Tachycardia
GI: Soft and Non Tender
Musculoskeletal: No Clubbing, No Cyanosis and Other (+1 pitting non-pitting edema bilateral lower extremity)
Skin: Warm and Dry
Neuro: Awake, Alert and Nonfocal/grossly intact (Overall generally weak)
Psych: Calm
Shortness of Breath
Right Pleural Effusion
Acute on Chronic HFpEF
-IV lasix
-can assess to see improvement with IV lasix and avoiding thora if possible
-Cards, Renal on board
-Monitor Is&Os and Daily Weights
Chronic Anemia
Iron Deficiency Anemia
-Transfused 1 units PRBC upon admisison
-start ferrous sulfate upon dc
KELLIE on CKD IIIb
-most likely cardiorenal
-urine studies
-Consult Nephrology
-Trend creatinine - baseline close to 1.5
-monitor with diuresis
#Hypernatremia
-monitor
#Leukocytosis
-no clear source of infection
-blood cultures drawn - follow
-monitor fever curve, wbc
-if no source and repeat imaging does not show improvement in pleural effusion - will need to tap
Recent Sternal and Right LE Graft Donor Site Wound Dehiscence
-Consult Wound Care
Coronary Artery Disease s/p prior cardiac stents and CABG in October 2023
-Continue aspirin and Plavix
Insulin-Dependent Diabetes Mellitus
-HgbA1c 6.3 in Dec 2023
-Sugars running on the low side per family
-Hold Lantus
-Monitor sugars and continue coverage insulin
Essential Hypertension
-Continue Amlodipine, Coreg, and Hydralazine with old parameters
Hyperlipidemia
-Continue Crestor
Hx Complete Heart Block s/p Pacemaker/ICD
DVT proph: HSQ
Code Status: Full Code
Anticipated Discharge: > 48 hours
Subjective/Interval History
-
Date of Service: February 11, 2024
Still short of breath
Objective Data
-
Labs:
Laboratory Results
02/11/24
06:47
WBC 20.9 H
Hgb 9.0 L D
Hct 26.5 L
Plt Count 527 H
Sodium 146 H
Potassium 3.7
Chloride 104
Carbon Dioxide 24
BUN 67 H
Creatinine 2.0 H
Glucose 140 H
Calcium 9.8
Vital Signs:
Vital Signs
Temp Pulse Resp BP Pulse Ox
98.7 F 88 16 153/80 98
02/11/24 15:00 02/11/24 15:00 02/11/24 15:00 02/11/24 15:00 02/11/24 15:00
I&O
02/10/24 02/11/24 02/12/24
06:59 06:59 06:59
Intake Total 250 / 250
Balance 250 / 250
Review of Systems
-
History Source: Patient
All other systems: Not reviewed unless documented
[2024-02-11 15:44] LABS: Urine Bacteria Few (Negative)
[2024-02-11 15:45] LABS: Urine Red Blood Cell 0-2 /HPF (0-2); Urine White Cell 16-20 /HPF (0-5)
[2024-02-11 15:52] LABS: Urine Sodium 109 mmol/L (30-90)
--- NOTE | 2024-02-11 16:08 | CM ---
manager of application development reviewed patient's chart and met with patient and patient lives with her disabled daughter in a one story home, with no steps, patient is independent with adl's and uses a walker with ambulation, patient is currently using 2 liters of
oxygen and patient did not require oxygen prior to admission.
PCP: Anne Marie Choi
Pharmacy: [facility] in [place].
Plan; To follow with progress for discharge planning needs.
--- NOTE | 2024-02-11 16:25 | CON.CAR ---
Consultation
Consultation Request
Date/Time Consultation Requested: 02/11/2024 at 9 AM
Date/Time Consultation Performed: 02/11/2024 at 2:30 PM
Requesting Provider: Hospitalist
Performing Provider: Fatigue shortness of breath
Reason for Consultation: Shortness of breath/fatigue
Medical History
-
History of Present Illness:
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 Iverson/Sohail Diego
78-year-old woman with past medical history below who presented to the hospital with generalized fatigue and increased shortness of breath. Patient appears tired she was trying to sleep and I woke her up this afternoon she did not get much sleep
last night. In general she has had exertional shortness of breath since her last hospitalization but she has had increased fatigue on presentation she was noted to be significantly anemic with a hemoglobin of 7.3. No evidence of acute bleeding.
Patient is not clear if she has had any change in her weights no increased lower extremity edema but she does feel like she has had more shortness of breath. Chest x-ray notable forModerate size right pleural effusion patient admitted to the
hospitalist service and was transfused 1 unit of PRBCs. Nephrology also consulted for a component of acute on chronic kidney injury with a creatinine up to 2.2.. proBNP was 6720. Troponin 0.025 iron 36, percent saturation 18 TIBC 197
Coronary artery disease
Coronary artery bypass grafting x 4 including HINDS to the LAD, SVG to D2, SVG to OM1, SVG to RPDA 11/29/[address] Robins
Patient was noted to have sternal wound dehiscence.
History of coronary stenting preceding coronary bypass grafting with last procedure 2018
Ischemic cardiomyopathy with ejection fraction 30%
Dual-chamber ICD/[employer] 11/23/2023. CHB
diabetes
Hypertension
Hypercholesterolemia
HFrEF
GERD
Cholecystectomy
Echocardiogram 11/23/2023 moderately reduced left ventricular function estimate ejection fraction of 30% apical lateral/inferolateral hypokinesis mild to moderate mitral regurgitation
Cardiac catheterization
Past Medical History
Past Medical History: Other (As above)
Social History
Personal: Other (Patient reports that her daughter knows her meds and medical information)
Family History
Family History: CAD
Allergies / Home Medications
Allergy/AdvReac Type Severity Reaction Status Date / Time
No Known Allergies Allergy Verified 01/06/24 09:03
�Medication �Instructions �Recorded �Confirmed �Type
furosemide 20 mg tablet 20 mg PO DAILY #30 tabs 12/19/23 02/10/24 Rx
gabapentin 300 mg capsule 300 mg PO HS Pain #3 caps 01/11/24 02/10/24 Rx
amlodipine 5 mg tablet 5 mg PO QPM Blood pressure #30 tabs 01/12/24 02/10/24 Rx
aspirin 81 mg chewable tablet 81 mg PO DAILY Heart 01/12/24 02/10/24 Rx
disease/condition #30 tabs
carvedilol 12.5 mg tablet 12.5 mg PO BID Heart 01/12/24 02/10/24 Rx
disease/condition #60 tabs
clopidogrel 75 mg tablet 75 mg PO DAILY Heart 01/12/24 02/10/24 Rx
disease/condition #30 tabs
hydralazine 50 mg tablet 50 mg PO TID@0800,1400,2000 Blood 01/12/24 02/10/24 Rx
pressure 30 days #90 tabs
rosuvastatin 20 mg tablet 20 mg PO QPM Heart 01/12/24 02/10/24 Rx
disease/condition #30 tabs
acetaminophen 500 mg tablet 1,000 mg PO BID 02/10/24 02/10/24 History
ascorbic acid (vitamin C) 500 mg 500 mg PO DAILY@1200 02/10/24 02/10/24 History
tablet (Vitamin C)
ferrous sulfate 325 mg (65 mg 325 mg PO DAILY@1200 Supplement 02/10/24 02/10/24 History
iron) tablet (FeroSul)
insulin aspart U-100 100 unit/mL 1 sliding scale dose SC DIRECTED 02/10/24 02/10/24 History
(3 mL) subcutaneous pen
insulin glargine 100 unit/mL (3 4 unit SC QPM 02/10/24 02/10/24 History
mL) subcutaneous pen (Lantus
Solostar U-100 Insulin)
multivitamin with folic acid 400 1 tab PO DAILY Supplement 02/10/24 02/10/24 History
mcg tablet (Tab-A-Danae)
tramadol 12.5 PO Q12H PRN pain 02/11/24 History
Review of Systems
-
All other systems: Negative unless noted
Physical Exam
Vital Signs
Temp Pulse Resp BP Pulse Ox
98.7 F 88 16 153/80 98
02/11/24 15:00 02/11/24 15:00 02/11/24 15:00 02/11/24 15:00 02/11/24 15:00
Lab Results
02/11/24 06:47
02/11/24 06:47
Troponin I 0.025 ng/ml 02/10/24 18:51
Fih-G-Zgykrvrpkci Pept 6770 pg/ml 02/10/24 18:51
Physical Exam
General: Other (Patient appears tired but is arousable and answers questions appropriately.)
HEENT: Other (External ear and oral exam unremarkable eyes extraocular was intact)
Respiratory: Other (Decreased breath sounds right base no wheezes or rhonchi)
Cardiac: Regular Rhythm and Other (Patient has a bandage up at the upper border of her sternal incision where she said she previously had wound VAC)
GI: Soft and Non Tender
Musculoskeletal: No Clubbing
Skin: Warm
Neuro: Awake and Alert
Hematologic/Lymphatic: No Lymphadenopathy
Impression / Plan
-
Fatigue/shortness of breath may be multifactorial contributing factors including - anemia, cardiomyopathy, heart failure with reduced ejection fraction and pleural effusion.
-Treatment of anemia as directed by primary team.
-Monitor response to IV diuretics which are already ordered. Renal function also being monitored and nephrology has been consulted.
-Echocardiogram
-Monitor blood cultures which are pending
-Assess medications which may contribute. Patient is on gabapentin she was not on this at discharge back in November but appears she was on it after hospitalization in December.
-Consider thoracentesis
.
Pleural effusion. Moderate in size consider thoracentesis
.
Anemia. Patient given 1 unit of PRBCs. Additional management as directed by PCP
.
Cardiomyopathy. Last ejection fraction 30%
-GDMT limited by renal insufficiency
-Currently on Coreg and hydralazine
.
ICD
.
History of wound dehiscence. Patient previously had wound VAC follow-up with CT surgery
.
Diabetes. Management as directed by PCP
[2024-02-11] MEDS: HEPARIN 5000 UNITS SC ×2 (17:08→23:13)
[2024-02-11] MEDS: NORVASC 5 MG PO (17:08)
[2024-02-11] MEDS: CRESTOR 20 MG PO (17:08)
[2024-02-11 17:21] LABS: Glucose - Point of Care 173 mg/dl (70-99)
[2024-02-11 21:26] LABS: Glucose - Point of Care 195 mg/dl (70-99)
[2024-02-11] MEDS: NEURONTIN 300 MG PO (22:10)
[2024-02-12 03:00] VITALS: BP 136/71
[2024-02-12] MEDS: TYLENOL 650 MG PO ×3 (04:50→13:40)
[2024-02-12 06:00] VITALS: BMI 20.4
[2024-02-12 07:05] VITALS: BP 130/67
[2024-02-12 07:18] LABS: Glucose - Point of Care 149 mg/dl (70-99)
[2024-02-12] MEDS: APRESOLINE 50 MG PO ×3 (07:55→21:58)
[2024-02-12] MEDS: LASIX 40 MG IV (07:55)
[2024-02-12] MEDS: NOVOLOG FLEXPEN-LOW RESISTANCE SC (07:55)
[2024-02-12] MEDS: HEPARIN 5000 UNITS SC ×3 (07:55→23:11)
[2024-02-12] MEDS: SENOKOT-S 1 TABLET PO ×2 (07:55→22:01)
[2024-02-12] MEDS: PLAVIX 75 MG PO (07:55)
[2024-02-12] MEDS: COREG 12.5 MG PO ×2 (07:55→21:58)
[2024-02-12] MEDS: LOW STRENGTH ASPIRIN 81 MG PO (07:55)
--- NOTE | 2024-02-12 08:49 | VNURNOTE ---
Chart reviewed. Patient is current with [facility] nursing, PT, OT. Will continue to follow hospital course and DC plans.
[2024-02-12 09:08] LABS: Hematocrit 24.3 % (37.0-47.0); Hemoglobin 8.1 g/dL (12.0-16.0); Mean Corp Hgb Conc. 33.3 g/dL (33.0-37.0); Mean Corpuscular Hgb 27.6 pg (27.0-31.0); Mean Corpuscular Volume 82.9 fL (81.0-99.0); Mean Platelet Volume 8.5 fL (7.4-10.4); Platelet Count 550 10^3/uL (130-400); Red Blood Cell Count 2.93 10^6/uL (4.20-5.40); Red Cell Dist. Width 16.4 % (11.5-14.5); White Blood Cell Count 25.1 10^3/uL (4.8-10.8)
[2024-02-12 09:59] LABS: Blood Urea Nitrogen 57 mg/dl (7-17); Calcium 9.5 mg/dl (8.4-10.2); Carbon Dioxide 27 mmol/L (22-30); Chloride 101 mmol/L (98-107); Estimated Creatinine Clearance 25 ml/min; Glucose 129 mg/dl (70-99); Potassium 3.1 mmol/L (3.5-5.1); Sodium 144 mmol/L (135-145); eGFR 28.66
[2024-02-12 10:00] VITALS: BMI 20.4
[2024-02-12 11:40] VITALS: BP 134/70
--- NOTE | 2024-02-12 11:42 | WOUNDNOTE ---
R MEDIAL LOWER LEG
--- NOTE | 2024-02-12 11:45 | WOUNDNOTE ---
WON RN note: Patient admitted with anemia and pleural effusion.
See H&P for complete history.
PMH: CABG 11/29/23,PM, IDDM,CKD, CAD, HTN, CHF and
Wound Location and type/assessment: Patient known to service, last seen 01/12/24 for same dehiscence to sternal and R leg harvest site surgical wounds. All wounds much smaller compared to last seen, no odor or signs of infection. Sternum with 2
small open areas, distal base 2cm no undermining. Proximal open area small opening but tunnels at 12 O'clock. Large old drainage on dressing which leaked under both breasts and soiled surgical bra. R leg incision less deep and healing. Sacral
chronic ulcer has re opened, shallow stage 2 vs stage 3 PI. Surrounding skin with chronic dark discolored skin. Nurse Rosario confirms that she does not stay on sides when turned and sits straight up in bed. Pain reported when HOB lowered to
reposition. Spoke to daughter Gómez who is a AMBULATORY CARE NURSE via phone and daughter Roxanne at bedside. Daughter states her Mom sleeps in a recliner chair and they got a donut shaped cushion for her when sitting. Patient followed up post last admission with
[facility]. Reviewed wound care with daughter Gómez who confirmed tunnel to proximal sternal wound. Has home care nurse named Letha. Daughter states her Mom had a follow up apt with Dr. Robins tomorrow and was hoping he can see her in hospital.
Shimon shown picture of Sternal wound and updated on wound care, confirmed with current treatment. Heels are intact.
Appetite: Good. Encouraged protein in diet, states she had her omelet this morning.
Pressure redistribution devices in place: On [id number], called Mina who brought a versa care air bed to , nurse Rosario will switch bed when able. Pressure ulcer prevention measures reviewed with patient, she acknowledged importance.
Plan: Applied silicone foam to sacrum and heel foams to protect, pillow placed under calves to offload heels. Can use air cushion when sitting in chair and take upon discharge, don't recommend using Donut cushion. To R leg applied hydrogel to ulcers
followed by adaptic, abd pad and davis. Tubigrip also in use from home. Sternal wound applied Iodoform packing strips into open ulcers, proximal portion tunnels 2cm at 12 O clock. Tail end of Iodoform strip layed to base of wound followed by folded
non woven gauze and Tegaderm to secure. Old surgical bra soiled, removed and asked nurse to call [facility] for another surgical bra. Cleaned under breasts due to leakage from sternal wound, non woven gauze placed under breasts. Repositioned onto L semi
side lying position. Instructed patient she can't sit straight up in bed for prolonged periods of time and needs to be turned.
Will confirm orders with hospitalist and updated nurse Rosario. Updated care plan and will follow as needed.
Note to case management of equipment requested for discharge: Continue VN.
Recommend follow up with DANIEL and Dr. Robins.
[2024-02-12 11:53] LABS: Glucose - Point of Care 239 mg/dl (70-99)
--- NOTE | 2024-02-12 12:14 | W.PN.HOSP.TC ---
Today's Communication/Plan
-
Continue with IV Lasix
Repeat chest x-ray
Plan for thoracentesis
Assessment / Plan
Assessment / Plan
#Right pleural effusion
#Acute on chronic HFrEF
-Presented with shortness of breath; moderate right pleural effusion and signs of decompensated heart failure
-Home GDMT for HFrEF includes carvedilol, likely limited due to renal insufficiency; last TTE with EF 35%
-Was started on IV Lasix regimen; renal function and volume status both improving for now
-Has not had any hypoxemia documented here; -320 mL net fluid balance in last 24 hours
-Warm and wet phenotype; cardiology and nephrology following
Plan
-Order chest x-ray to reassess pleural effusion today
-Continue with IV Lasix; trend BMP and monitor I's/O's and weights
-Continue with sodium restricted diet
-Consider right thoracentesis due to worsening WBC count and temperature
#KELLIE on CKD 3B
-Secondary to decompensated heart failure and hypervolemia, cardiorenal syndrome type 1
-Baseline creatinine 1.5; presented with creatinine near 2.2
-renal function is improving with IV diuretics as above
-Nephrology following
#Chronic Anemia
#Iron Deficiency Anemia
-Presented with hemoglobin 7.3, potentially symptomatic with dyspnea
-Was given 1 unit PRBC; suspect her dyspnea was more related to effusion and CHF
-Started on iron supplementation, will continue at discharge
-Trend CBC while here
#Leukocytosis
-no clear source of infection, did have a low-grade fever with 100.2 �F temp overnight
-Leukocytosis is uptrending, WBC count at 24 today
-Planning for diagnostic thoracentesis with culture as above
-Continue to trend CBC and temperature curve
#CAD s/p PCI, CABG (2023)
-Home medications include beta-juan, aspirin, Plavix, high intensity
-Does have significant systolic dysfunction with EF 35%
-No current signs of ACS
#IDDM
-Most recent A1c 6.3%; per family blood sugar has been on the lower side more recently
-Home Lantus dose held; currently on ISS with Accu-Cheks only
#Essential hypertension
-Home medications include carvedilol, amlodipine, hydralazine
-No known hypertensive systemic
-Home meds continued with hold parameters
#Recent Sternal and Right LE Graft Donor Site Wound Dehiscence
-Consult Wound Care
#H/O Complete Heart Block s/p Pacemaker/ICD
DVT proph: HSQ
Diet: 2 g sodium restricted
Code Status: Full Code
Anticipated Discharge: 24 - 48 hours
Subjective/Interval History
-
Date of Service: February 12, 2024
Seen and examined at the bedside. No acute events overnight. AFVSS this morning. Daughter was in the room, updated on plan.
Did have a borderline fever with temperature 100.2 degrees Fahrenheit. White cell count uptrending
Otherwise denied any acute complaints including chest pain, dyspnea, fevers or chills, urinary issues, GI issues, paresthesias or weakness, bleeding or bruising.
Objective Data
-
Labs:
Laboratory Results
02/12/24
08:32
WBC 25.1 H
Hgb 8.1 L
Hct 24.3 L
Plt Count 550 H
Sodium 144
Potassium 3.1 L
Chloride 101
Carbon Dioxide 27
BUN 57 H
Creatinine 1.8 H
Glucose 129 H
Calcium 9.5
Vital Signs:
Vital Signs
Temp Pulse Resp BP Pulse Ox
98.3 F 87 20 134/70 98
02/12/24 11:40 02/12/24 11:40 02/12/24 11:40 02/12/24 11:40 02/12/24 11:40
I&O
02/11/24 02/12/24 02/13/24
06:59 06:59 06:59
Intake Total 250 / 250 1230 / 1230
Output Total 1550 / 1550
Balance 250 / 250 -320 / -320
Review of Systems
-
History Source: Patient
All other systems: Reviewed and negative
Physical Exam
-
General: No Apparent Distress, Comfortable and Appears Chronically Ill
HEENT: Normocephalic, Atraumatic and Moist Mucous Membranes
Respiratory: Non Labored Respirations and Decreased Breath Sounds (Lower right lung lincoln); Negative Wheezes, Rales, Rhonchi or Accessory Resp Muscle Use
Cardiac: Regular Rhythm and S1/S2; Negative Murmur, Rub, JVD or Gallop
GI: Soft, Nontender, Nondistended and Normal Bowel Sounds
Musculoskeletal: No Clubbing, No Cyanosis and No Edema
Skin: Warm and Dry; Negative Rash
Neuro: AO x 3, Nonfocal/Grossly Intact and Central Nerve's Intact
Psych: Calm
Data Reviewed
-
Diagnostic Radiology: Discussed with Patient and Discussed with Family
Labs: Labs Reviewed by me and Discussed with Patient
[2024-02-12] MEDS: NOVOLOG FLEXPEN-LOW RESISTANCE 2 UNITS SC (12:18)
[2024-02-12] MEDS: VITAMIN C 500 MG PO (12:19)
[2024-02-12] MEDS: FEOSOL 325 MG PO (12:19)
[2024-02-12] MEDS: KLOR-CON 40 MEQ PO ×2 (12:23→21:59)
--- NOTE | 2024-02-12 13:52 | CM ---
Addendum entered by Beryl Means 02/12/24 16:03:
Patient and family are looking at patient returning to [facility], referral sent to [facility].
Original Note:
search engine marketing manager reviewed patient's chart and met with patient and reviewed physical therapy notes and recommendation is for skilled placement, will review with patient.
Plan; Skilled placement.
--- NOTE | 2024-02-12 13:54 | W.PN.NEPH.PH ---
Today's Communication / Plan
-
observe on lasix
follow bmp
Assessment/Plan
-
Assessment:
CAD
KELLIE on CKD3b (1.5)
SOB
HTN
HFrEF, decompensated
Edema
Diabetes mellitus type 2
Leukocytosis
Anemia
PPM
Plan:
Checked urine studies: bland
creatinine down to 1.8, remains non oliguric ~1500cc
Diuresis with IV Lasix 40mg daily
Reviewed chest x-ray with still notes volume
will require thoracentesis
Follow BMP
Check blood cultures: negative
Check urine culture
Baseline creatinine uncertain, likely close to 1.5
Discussed with daughter and patient regarding cardiorenal syndrome
-
-
Date of Service: February 12, 2024
CC / HPI / ROS
-
Chief Complaint:
KELLIE
History of Present Illness:
Creatinine down to 1.8
Hemodynamically stable
Review of Systems:
Weights unchanged
Nonoliguric
Labs
-
Labs:
WBC 25.1 10^3/uL (4.8-10.8) H 02/12/24 08:32
RBC 2.93 10^6/uL (4.20-5.40) L 02/12/24 08:32
Hgb 8.1 g/dL (12.0-16.0) L 02/12/24 08:32
Hct 24.3 % (37.0-47.0) L 02/12/24 08:32
Plt Count 550 10^3/uL (130-400) H 02/12/24 08:32
Sodium 144 mmol/L (135-145) 02/12/24 08:32
Potassium 3.1 mmol/L (3.5-5.1) L 02/12/24 08:32
Chloride 101 mmol/L (98-107) 02/12/24 08:32
Carbon Dioxide 27 mmol/L (22-30) 02/12/24 08:32
BUN 57 mg/dl (7-17) H 02/12/24 08:32
Creatinine 1.8 mg/dL (0.6-1.0) H 02/12/24 08:32
eGFR 28.66 02/12/24 08:32
Glucose 129 mg/dl (70-99) H 02/12/24 08:32
Calcium 9.5 mg/dl (8.4-10.2) 02/12/24 08:32
Jaj-H-Onmsjmpovpb Pept 6770 pg/ml 02/10/24 18:51
Albumin 3.3 g/dl (3.5-5.0) L 02/10/24 18:51
Physical Exam
-
Vital Signs:
Vital Signs
Temp Pulse Resp BP Pulse Ox
98.3 F 87 20 134/70 98
02/12/24 11:40 02/12/24 11:40 02/12/24 11:40 02/12/24 11:40 02/12/24 11:40
Cardiovascular:: Regular rate and rhythm
Respiratory:: Bilateral: Coarse (Profoundly decreased breath sounds at the bases)
Lung Excursion:: Normal
Abdomen:: Nontender and Soft
Bowel Sounds:: Normal
Extremity Edema:: None: Bilateral:
Jones Catheter: No
--- NOTE | 2024-02-12 14:08 | W.PN.CD ---
Today's Communication / Plan
-
- Continue lasix 40 mg IV QD
- ECHO in am.
- Thoracentesis when able.
- Kcl 40 meQ today
Impression / Plan
-
Ms. Baxter is a 78 years old woman with CAD, s/p PCI to RCA, LAD and LCx - last stent 2018, s/p CABG X4 11/29/23 with complete heart block and chronic systolic HF with LVEF of 30% s/p dual chamber ICD - Med[employer] 12/01/23 is admitted with acute heart
failure.
Fatigue/shortness of breath
-may be multifactorial contributing factors including - anemia, cardiomyopathy, heart failure with reduced ejection fraction and pleural effusion.
-Treatment of anemia as directed by primary team.
-s/p IV lasix 02/10. negative balance with possible inaccurate I/Os.
-Cr is 2.o to 1.8 today with diuretics.
-Echocardiogram - pending.
-Monitor blood cultures which are pending
-Consider thoracentesis
.
Hypokalemia
-with diuresis and improving Cr, would recommend replacing K
-Keep above 3.5.
-Kcl 40 meq today
Pleural effusion.
-Moderate in size consider thoracentesis
-Thoracentesis when able
.
Anemia.
-Patient given 1 unit of PRBCs.
Hgb is 8.1 now.
.
Cardiomyopathy. Last ejection fraction 30%
-GDMT limited by renal insufficiency
-Currently on Coreg and hydralazine
.
ICD
.
History of wound dehiscence. Patient previously had wound VAC follow-up with CT surgery
.
Diabetes. Management as directed by PCP
Physical Exam
Vital Signs/Labs
Vital Signs
Temp Pulse Resp BP Pulse Ox
98.3 F 84 20 130/95 98
02/12/24 11:40 02/12/24 13:54 02/12/24 11:40 02/12/24 13:54 02/12/24 11:40
02/11/24 02/12/24 02/13/24
06:59 06:59 06:59
Actual Weight 59.109 kg 60.895 kg
02/12/24 08:32
02/12/24 08:32
Magnesium 2.5 mg/dl (1.6-2.3) H 02/11/24 06:47
02/10/24
18:51
Qsj-V-Nqwntnttixn Pept 6770
LAB Results
02/10/24
18:51
Troponin I 0.025
Physical Exam
Constitutional: No acute distress, Comfortable and Other (vague pain in left neck above the clavicle. )
EENT: Anicteric and Moist mucous membranes
Cardiovascular: Rhythm & rate is regular, Pedal edema is absent and JVD pressure is normal
Respiratory: Respiratory effort normal and Crackles Present
GI: Soft, Distention absent, Non tender and Normal bowel sounds
Neuro/Psych: Alert, Oriented, AO x 3 and Motor deficits absent
Other: Cardiac Device Site and Other
Data Reviewed
-
Date of Service: February 12, 2024
Medical Decision Making: Reviewed Test Results, Tests Ordered, Independent Historian Assessment, Test Interpretation and Review of Case with other Provider
EKG: Tracing Personally Visualized and interpreted
Echo: Report Reviewed by me
Labs: Labs Reviewed by me
Old Records: Reviewed
[2024-02-12] MEDS: KCL 40 MEQ PO (14:52)
[2024-02-12] MEDS: TORADOL 15 MG IV (14:54)
[2024-02-12 15:33] VITALS: BP 128/73
[2024-02-12 16:35] LABS: Glucose - Point of Care 193 mg/dl (70-99)
[2024-02-12] MEDS: ZOSYN 50 IV ×2 (16:43→22:01)
[2024-02-12] MEDS: NOVOLOG FLEXPEN-LOW RESISTANCE 3 UNITS SC (16:44)
[2024-02-12] MEDS: CRESTOR 20 MG PO (17:39)
[2024-02-12] MEDS: NORVASC 5 MG PO (17:39)
[2024-02-12 17:58] VITALS: BMI 20.4
[2024-02-12 20:00] VITALS: BP 125/62
[2024-02-12 22:01] LABS: Glucose - Point of Care 149 mg/dl (70-99)
[2024-02-12] MEDS: NEURONTIN 300 MG PO (22:01)
[2024-02-12] MEDS: TYLENOL 1000 MG PO (22:07)
[2024-02-12 23:00] VITALS: BP 146/82
[2024-02-13] VITALS (9 sets, daily range): BP systolic 91–143; BP diastolic 57–79; BMI 20.9
[2024-02-13] MEDS: ZOSYN 50 IV ×4 (03:01→21:44)
[2024-02-13 07:08] LABS: Blood Urea Nitrogen 57 mg/dl (7-17); Calcium 9.4 mg/dl (8.4-10.2); Carbon Dioxide 27 mmol/L (22-30); Chloride 104 mmol/L (98-107); Estimated Creatinine Clearance 26 ml/min; Glucose 111 mg/dl (70-99); LDH 214 U/L (120-246); Potassium 4.4 mmol/L (3.5-5.1); Sodium 144 mmol/L (135-145); Total Protein 6.7 g/dl (6.3-8.2); eGFR 28.66
[2024-02-13 07:19] LABS: % Basophils 0.4 % (0-2); % Eosinophils 2.9 % (0-6); % Immature Granulocytes 0.9 % (0-0.5); % Lymphocytes 11.1 % (20.5-51.1); % Monocytes 7.4 % (1.7-9.3); % Neutrophils 77.3 % (42.2-75.2); Absolute Basophils 0.1 10^3/uL (0-0.2); Absolute Eosinophils 0.6 10^3/uL (0-0.7); Absolute Immature Granulocytes 0.2 10^3/uL (0-0.05); Absolute Lymphocytes 2.5 10^3/uL (1.2-3.4); Absolute Monocytes 1.7 10^3/uL (0.1-0.6); Absolute Neutrophils 17.2 10^3/uL (1.4-6.5); Hematocrit 23.7 % (37.0-47.0); Hemoglobin 7.9 g/dL (12.0-16.0); Mean Corp Hgb Conc. 33.3 g/dL (33.0-37.0); Mean Corpuscular Hgb 27.7 pg (27.0-31.0); Mean Corpuscular Volume 83.2 fL (81.0-99.0); Mean Platelet Volume 8.6 fL (7.4-10.4); Nucleated Red Blood Cells % 0 %; Platelet Count 526 10^3/uL (130-400); Red Blood Cell Count 2.85 10^6/uL (4.20-5.40); Red Cell Dist. Width 16.7 % (11.5-14.5); White Blood Cell Count 22.2 10^3/uL (4.8-10.8)
[2024-02-13 08:37] LABS: Body Fluid pH 7.43
--- NOTE | 2024-02-13 08:37 | W.PN.CD ---
Today's Communication / Plan
-
- Thoracentesis today
- Diuretics
- ECHo today
Impression / Plan
-
Ms. Baxter is a 78 years old woman with CAD, s/p PCI to RCA, LAD and LCx - last stent 2018, s/p CABG X4 11/29/23 with complete heart block and chronic systolic HF with LVEF of 30% s/p dual chamber ICD - [employer] 12/01/23 is admitted with acute heart
failure.
Fatigue/shortness of breath
-may be multifactorial contributing factors including - anemia, cardiomyopathy, heart failure with reduced ejection fraction and pleural effusion.
-Treatment of anemia as directed by primary team.
-s/p IV lasix since 02/10. negative balance with possible inaccurate I/Os.
-Cr is 2.0 to 1.8 today - stable.
-Echocardiogram - pending.
-Monitor blood cultures which are pending
-s/p thoracentesis today
.
Hypokalemia
-Replaced.
- K is 4.4 today
Pleural effusion.
-Moderate in size consider thoracentesis
-s/p Thoracentesis - now able to lie down flat.
.
Anemia.
-Patient given 1 unit of PRBCs.
- Hgb is 7.9 now.
.
Cardiomyopathy. Last ejection fraction 30%
-GDMT limited by renal insufficiency
-Currently on Coreg and hydralazine
.
ICD
.
History of wound dehiscence. Patient previously had wound VAC follow-up with CT surgery
.
Diabetes. Management as directed by PCP
Physical Exam
Vital Signs/Labs
Vital Signs
Temp Pulse Resp BP Pulse Ox
98.3 F 90 18 143/79 99
02/13/24 07:50 02/13/24 08:16 02/13/24 08:16 02/13/24 08:16 02/13/24 07:50
02/12/24 02/13/24 02/14/24
06:59 06:59 06:59
Actual Weight 60.895 kg 62.284 kg
02/13/24 05:50
02/13/24 05:50
Magnesium 2.5 mg/dl (1.6-2.3) H 02/11/24 06:47
02/10/24
18:51
Wet-U-Dbccdrtshaa Pept 6770
LAB Results
02/10/24
18:51
Troponin I 0.025
Physical Exam
Constitutional: Comfortable and Confusion
EENT: Anicteric and Moist mucous membranes
Cardiovascular: Rhythm & rate is regular, Pedal edema is absent, JVD pressure is normal and Systolic murmur absent
Respiratory: Respiratory effort normal, Crackles Absent and Rhonchi Absent
GI: Soft, Non tender and Normal bowel sounds
Neuro/Psych: Alert, Oriented and AO x 3
Data Reviewed
-
Date of Service: February 13, 2024
Medical Decision Making: Reviewed Test Results, Independent Historian Assessment, Test Interpretation and Review of Case with other Provider
EKG: Tracing Personally Visualized and interpreted
Echo: Report Reviewed by me
X-Ray/CT/US/MRI/NUC/PET: Image Personally Visualized and interpreted
Labs: Labs Reviewed by me
Old Records: Reviewed
[2024-02-13] MEDS: NOVOLOG FLEXPEN-LOW RESISTANCE SC ×3 (08:47→18:04)
[2024-02-13 08:48] LABS: Glucose - Point of Care 135 mg/dl (70-99)
[2024-02-13 08:49] LABS: Body Fluid Mononuclear 38.2 %; Body Fluid Polymorphonuclear 61.8 %; Body Fluid WBC 1662 /CUMM
[2024-02-13] MEDS: PLAVIX 75 MG PO (08:58)
[2024-02-13] MEDS: HEPARIN 5000 UNITS SC ×3 (08:58→23:01)
[2024-02-13] MEDS: LOW STRENGTH ASPIRIN 81 MG PO (08:58)
[2024-02-13] MEDS: SENOKOT-S 1 TABLET PO ×2 (08:58→21:42)
[2024-02-13] MEDS: APRESOLINE PO ×2 (08:59→14:39)
[2024-02-13] MEDS: COREG 12.5 MG PO ×2 (08:59→21:43)
[2024-02-13] MEDS: HYDROPHOR 1 APPLIC TOPICAL (09:02)
[2024-02-13] MEDS: LASIX 40 MG IV (09:02)
[2024-02-13 09:04] LABS: Body Fluid Second Tech EF
[2024-02-13 09:06] LABS: Body Fluid Albumin 2.1 g/dl; Body Fluid Amylase 59 U/L; Body Fluid Glucose 119 mg/dl; Body Fluid LDH 155 U/L; Body Fluid Protein 4.7 g/dl; Body Fluid Triglycerides < 30 mg/dl
--- NOTE | 2024-02-13 09:22 | PN.CDI ---
CDI
- -
CDI:
Physician Documentation Request
Admit Date: 02/10/24 22:35
Dear Doctor Anthony,
Patient admitted with acute on chronic systolic CHF.
02/10 Nursing skin assessment, 'Stage 3 sacral pressure injury, POA'
Physician documentation of the type and location of wounds is required for compliant documentation. Based on the above clinical findings and your assessment, please provide the following in your progress note:
Type (etiology) of ulcer/wound:
- Pressure (decubitus) ulcer
- Other
- Unable to determine
For a pressure ulcer, please also include the stage* of the ulcer:
- Stage 1 - Skin intact, non-blanchable redness
- Stage 2 - Partial thickness loss of dermis, includes intact or open blister
- Stage 3 - Full thickness tissue not including bone, tendon or muscle
- Stage 4 - Full thickness tissue loss, including exposed bone, tendon or muscle
- Unstageable - Full thickness loss in which the base of the ulcer is covered by slough (yellow, phillips, short, green or brown) and/or eschar (phillips, brown or black) in the wound bed.
- Unable to determine
Use of terms such as suspected, likely, concern for, or probable (associated with a specific diagnosis that is being evaluated, monitored, or treated as if it exists) are acceptable and can be coded in the inpatient setting, when documented at the
time of discharge.
Thank you,
Diana NEWBY,RN,CCDS
CDI Specialist
Available via [employer]
Please use your independent medical judgment in providing your response.
*Source: National Pressure Ulcer Advisory Panel (NPUAP)
--- NOTE | 2024-02-13 10:26 | W.PN.HOSP.TC ---
Addendum entered and electronically signed by Leonard Cruz DO 02/13/24 10:37:
CDI clarification: Stage 3 sacral decubitus pressure injury, POA
Original Note:
Today's Communication/Plan
-
Continue IV Zosyn
Follow-up pleural fluid cultures and cell differential
Trend CBC and temperature curve
Continue IV Lasix for CHF
Assessment / Plan
Assessment / Plan
#Acute on chronic HFrEF
-Presented with shortness of breath; moderate right pleural effusion and signs of decompensated heart failure
-Home GDMT for HFrEF includes carvedilol, likely limited due to renal insufficiency; last TTE with EF 35%
-Was started on IV Lasix regimen; renal function and volume status both improving for now
-Has not had any hypoxemia documented here; weights and I's/O's not accurate
-Cardiology following
Plan
-Continue with IV Lasix; trend BMP, monitor I's/O's and weights
-Continue with sodium restricted diet
-Continue with carvedilol for GDMT
#Exudative right pleural effusion
#Leukocytosis
-Thoracentesis today with signs of exudative qualities per lights criteria; concern for parapneumonic effusion
-Fluid pH not consistent with complicated parapneumonic effusion/empyema, glucose levels normal
-White cell count here up trended to 24, was started on IV Zosyn empirically, now downtrend
-Blood cultures taken on admission have remained negative
-Pleural fluid white cell count, differential, culture pending
Plan
-Continue with IV Zosyn empirically
-Follow-up on infectious workup for purulent fluid
-Continue to follow blood cultures
-Trend CBC and temperature curve
-Consider CT C/A/P if no signs of infection of pleural fluid
#KELLIE on CKD 3B
-Secondary to decompensated heart failure and hypervolemia, cardiorenal syndrome type 1
-Baseline creatinine 1.5; presented with creatinine near 2.2 however back near baseline
-renal function is improving with IV diuretics as above
-Nephrology following
#Chronic Anemia
#Iron Deficiency Anemia
-Presented with hemoglobin 7.3, potentially symptomatic with dyspnea
-Was given 1 unit PRBC; suspect her dyspnea was more related to effusion and CHF
-Started on iron supplementation, will continue at discharge
-Trend CBC while here
#CAD s/p PCI, CABG (2023)
-Home medications include beta-juan, aspirin, Plavix, high intensity
-Does have significant systolic dysfunction with EF 35%
-No current signs of ACS
#IDDM
-Most recent A1c 6.3%; per family blood sugar has been on the lower side more recently
-Home Lantus dose held; currently on ISS with Accu-Cheks only
#Essential hypertension
-Home medications include carvedilol, amlodipine, hydralazine
-No known hypertensive systemic
-Home meds continued with hold parameters
#Recent Sternal and Right LE Graft Donor Site Wound Dehiscence
-Wound care following
#H/O Complete Heart Block s/p Pacemaker/ICD
DVT proph: HSQ
Diet: 2 g sodium restricted
Code Status: Full Code
Anticipated Discharge: 24 - 48 hours
Subjective/Interval History
-
Date of Service: February 13, 2024
Seen and examined at the bedside. No acute events reported overnight. AFVSS this morning.
She had thoracentesis performed this morning. Exudative appearing fluid per lights criteria. Daughter at bedside, update provided
Patient was extremely tired following her procedure, ROS unable to be obtained
Objective Data
-
Labs:
Laboratory Results
02/13/24
05:50
WBC 22.2 H
Hgb 7.9 L
Hct 23.7 L
Plt Count 526 H
Sodium 144
Potassium 4.4 D
Chloride 104
Carbon Dioxide 27
BUN 57 H
Creatinine 1.8 H
Glucose 111 H
Calcium 9.4
Vital Signs:
Vital Signs
Temp Pulse Resp BP Pulse Ox
98.3 F 90 18 111/68 99
02/13/24 07:50 02/13/24 08:16 02/13/24 08:16 02/13/24 08:59 02/13/24 07:50
I&O
02/12/24 02/13/24 02/14/24
06:59 06:59 06:59
Intake Total 1230 / 1230 900 / 900
Output Total 1550 / 1550 550 / 550
Balance -320 / -320 350 / 350
Review of Systems
-
History Source: Patient and Family
All other systems: Reviewed and negative
Physical Exam
-
General: No Apparent Distress, Comfortable and Appears Chronically Ill
HEENT: Normocephalic, Atraumatic and Moist Mucous Membranes; Negative Anicteric
Respiratory: Clear to Auscultation and Non Labored Respirations; Negative Wheezes, Rales or Rhonchi
Cardiac: Regular Rhythm and S1/S2; Negative Murmur, Rub or Gallop
GI: Soft, Nontender, Nondistended and Normal Bowel Sounds
Musculoskeletal: No Clubbing, No Cyanosis and No Edema
Skin: Warm and Dry; Negative Rash
Neuro: AO x 3, Nonfocal/Grossly Intact, Central Nerve's Intact and Other (Tired following procedure)
Psych: Calm
Data Reviewed
-
Labs: Labs Reviewed by me and Discussed with Family
[2024-02-13] MEDS: FEOSOL 325 MG PO (11:18)
[2024-02-13] MEDS: TYLENOL 1000 MG PO ×2 (11:18→17:16)
[2024-02-13] MEDS: VITAMIN C 500 MG PO (11:18)
[2024-02-13 11:48] LABS: Glucose - Point of Care 143 mg/dl (70-99)
--- NOTE | 2024-02-13 15:59 | W.PN.NEPH.PH ---
Today's Communication / Plan
-
Maintain IV Lasix
Follow BMP
For echo today
Assessment/Plan
-
Assessment:
CAD
KELLIE on CKD3b (1.5)
SOB
HTN
HFrEF, decompensated
Edema
Diabetes mellitus type 2
Leukocytosis
Anemia
PPM
Plan:
Checked urine studies: bland
creatinine down to 1.8, remains non oliguric
Status post 600 cc thoracentesis today
For echocardiogram
Diuresis with IV Lasix 40mg daily to continue but weights climbing
Follow BMP
Check blood cultures: negative
Checked urine culture
Baseline creatinine uncertain, likely close to 1.5
-
-
Date of Service: February 13, 2024
CC / HPI / ROS
-
Chief Complaint:
KELLIE
History of Present Illness:
Creatinine down to 1.8
Hemodynamically stable
Review of Systems:
Weights up
Nonoliguric
Labs
-
Labs:
WBC 22.2 10^3/uL (4.8-10.8) H 02/13/24 05:50
RBC 2.85 10^6/uL (4.20-5.40) L 02/13/24 05:50
Hgb 7.9 g/dL (12.0-16.0) L 02/13/24 05:50
Hct 23.7 % (37.0-47.0) L 02/13/24 05:50
Plt Count 526 10^3/uL (130-400) H 02/13/24 05:50
Sodium 144 mmol/L (135-145) 02/13/24 05:50
Potassium 4.4 mmol/L (3.5-5.1) D 02/13/24 05:50
Chloride 104 mmol/L (98-107) 02/13/24 05:50
Carbon Dioxide 27 mmol/L (22-30) 02/13/24 05:50
BUN 57 mg/dl (7-17) H 02/13/24 05:50
Creatinine 1.8 mg/dL (0.6-1.0) H 02/13/24 05:50
eGFR 28.66 02/13/24 05:50
Glucose 111 mg/dl (70-99) H 02/13/24 05:50
Calcium 9.4 mg/dl (8.4-10.2) 02/13/24 05:50
Cti-M-Navbltziqwr Pept 6770 pg/ml 02/10/24 18:51
Albumin 3.3 g/dl (3.5-5.0) L 02/10/24 18:51
Physical Exam
-
Vital Signs:
Vital Signs
Temp Pulse Resp BP Pulse Ox
99.7 F 85 20 110/55 100
02/13/24 11:00 02/13/24 14:39 02/13/24 11:00 02/13/24 14:39 02/13/24 11:00
Cardiovascular:: Regular rate and rhythm
Respiratory:: Bilateral: Coarse (Profoundly decreased breath sounds at the bases)
Lung Excursion:: Normal
Abdomen:: Nontender and Soft
Bowel Sounds:: Normal
Extremity Edema:: None: Bilateral:
Jones Catheter: No
--- NOTE | 2024-02-13 16:30 | PTCARENOTE ---
Discussed with pt and pt's daughter about Sleep apnea videos ordered. Pt and her daughter refused them stating''since my mom had the fluid removed from her lung today, we feel she will not have this issue.'
--- NOTE | 2024-02-13 17:14 | CM ---
PT OT indicate SNF
Family requested [facility]
Spoke with Aundrea at [facility] Pt not appropriate for [facility].
Will need SNF choices.entered in care port.
PLAN To Snf after located
[2024-02-13] MEDS: CRESTOR 20 MG PO (17:17)
[2024-02-13] MEDS: NORVASC 5 MG PO (17:19)
[2024-02-13 17:33] LABS: Glucose - Point of Care 138 mg/dl (70-99)
[2024-02-13 21:28] LABS: Glucose - Point of Care 203 mg/dl (70-99)
[2024-02-13] MEDS: NEURONTIN 300 MG PO (21:42)
[2024-02-13] MEDS: APRESOLINE 50 MG PO (21:43)
[2024-02-14] VITALS (10 sets, daily range): BP systolic 104–145; BP diastolic 52–85; BMI 20.5
--- NOTE | 2024-02-14 04:08 | DOWNTIME ---
There was a [employer] Client Water Systems Engineer Downtime on 02/14/2024 from 0100 to 02/14/2024 at 0355. Downtime documentation of patient's care, including medication administrations, has been reconciled in the electronic record per guidelines. Refer to the
patient's paper chart under the miscellaneous tab to see printed paper medication records and downtime forms.
[2024-02-14] MEDS: ZOSYN 50 IV ×4 (04:11→22:00)
[2024-02-14] MEDS: TYLENOL 1000 MG PO ×3 (04:22→19:26)
[2024-02-14 08:20] LABS: Glucose - Point of Care 139 mg/dl (70-99)
[2024-02-14] MEDS: NOVOLOG FLEXPEN-LOW RESISTANCE SC ×2 (08:47→18:35)
--- NOTE | 2024-02-14 08:51 | W.PN.CD ---
Today's Communication / Plan
-
SOB resolved
PO lasix tomorrow
SGLT2i case management to loja
Impression / Plan
-
Ms. Baxter is a 78 years old woman with CAD, s/p PCI to RCA, LAD and LCx - last stent 2018, s/p CABG X4 11/29/23 with complete heart block and chronic systolic HF with LVEF of 30% s/p dual chamber ICD - [employer] 12/01/23 is admitted with acute heart
failure.
Fatigue/shortness of breath improved and normalized
-may be multifactorial contributing factors including - anemia, cardiomyopathy, heart failure with reduced ejection fraction and pleural effusion.
-Treatment of anemia as directed by primary team.
-Stop IV lasix oral lasix tomorrow
-Cr is 1.8 to 1.9 stable
-Echocardiogram - pending.
-Monitor blood cultures which are pending
-s/p thoracentesis today
.
Hypokalemia
-Replaced.
- K is 4.4 today
Pleural effusion.
-Moderate in size consider thoracentesis
-s/p Thoracentesis - now able to lie down flat.
.
Anemia.
- Patient given 1 unit of PRBCs.
- Hgb is 7.9 now.
.
Cardiomyopathy. Last ejection fraction 30%
-GDMT limited by renal insufficiency
-Currently on Coreg and hydralazine
- consider SGLT2i will loja out
.
ICD
.
History of wound dehiscence. Patient previously had wound VAC follow-up with CT surgery
.
Diabetes. Management as directed by PCP
Physical Exam
Vital Signs/Labs
Vital Signs
Temp Pulse Resp BP Pulse Ox
98.1 F 92 18 127/66 94
02/14/24 07:00 02/14/24 07:00 02/14/24 07:00 02/14/24 07:00 02/14/24 07:00
02/13/24 02/14/24 02/15/24
06:59 06:59 06:59
Actual Weight 137 lb 5 oz
Magnesium 2.5 mg/dl (1.6-2.3) H 02/11/24 06:47
02/10/24
18:51
Hhh-Y-Vzerrxsihrk Pept 6770
Physical Exam
Constitutional: No acute distress
EENT: Anicteric
Cardiovascular: Rhythm & rate is regular and Pedal edema is absent
Respiratory: Respiratory effort normal and Lungs clear to auscul.
GI: Soft
Neuro/Psych: Alert and Oriented
Data Reviewed
-
Date of Service: February 14, 2024
EKG: Tracing Personally Visualized and interpreted (sr)
Echo: Tracing Personally Visualized and interpreted
Labs: Labs Reviewed by me
[2024-02-14] MEDS: LOW STRENGTH ASPIRIN 81 MG PO (08:53)
[2024-02-14] MEDS: SENOKOT-S 1 TABLET PO ×2 (08:53→20:32)
[2024-02-14] MEDS: APRESOLINE 50 MG PO ×2 (08:53→14:51)
[2024-02-14] MEDS: PLAVIX 75 MG PO (08:53)
[2024-02-14] MEDS: LASIX 40 MG IV (08:54)
[2024-02-14] MEDS: COREG 12.5 MG PO ×2 (08:54→20:32)
[2024-02-14] MEDS: HEPARIN 5000 UNITS SC ×3 (08:54→23:17)
[2024-02-14 09:22] LABS: % Basophils 0.4 % (0-2); % Immature Granulocytes 0.8 % (0-0.5); % Lymphocytes 13.4 % (20.5-51.1); % Monocytes 6.5 % (1.7-9.3); % Neutrophils 76.9 % (42.2-75.2); Absolute Basophils 0.1 10^3/uL (0-0.2); Absolute Eosinophils 0.4 10^3/uL (0-0.7); Absolute Immature Granulocytes 0.2 10^3/uL (0-0.05); Absolute Lymphocytes 2.9 10^3/uL (1.2-3.4); Absolute Monocytes 1.4 10^3/uL (0.1-0.6); Absolute Neutrophils 16.6 10^3/uL (1.4-6.5); Hemoglobin 7.4 g/dL (12.0-16.0); Mean Corp Hgb Conc. 33.6 g/dL (33.0-37.0); Mean Corpuscular Hgb 26.9 pg (27.0-31.0); Mean Platelet Volume 8.6 fL (7.4-10.4); Nucleated Red Blood Cells % 0 %; Platelet Count 546 10^3/uL (130-400); Red Blood Cell Count 2.75 10^6/uL (4.20-5.40); Red Cell Dist. Width 16.8 % (11.5-14.5); White Blood Cell Count 21.6 10^3/uL (4.8-10.8)
[2024-02-14 10:21] LABS: Blood Urea Nitrogen 54 mg/dl (7-17); Calcium 9.3 mg/dl (8.4-10.2); Carbon Dioxide 27 mmol/L (22-30); Chloride 102 mmol/L (98-107); Estimated Creatinine Clearance 24 ml/min; Glucose 124 mg/dl (70-99); Potassium 3.7 mmol/L (3.5-5.1); Sodium 145 mmol/L (135-145); eGFR 26.86
[2024-02-14] MEDS: HYDROPHOR 1 APPLIC TOPICAL (10:54)
--- NOTE | 2024-02-14 11:36 | W.PN.HOSP.TC ---
Today's Communication/Plan
-
Continue IV Zosyn, follow-up pleural fluid culture from yesterday, trend temperature and CBC
Transition to oral Lasix regimen tomorrow
Order 1 unit PRBC for descending hemoglobin counts
Assessment / Plan
Assessment / Plan
#Acute on chronic HFrecEF
-Presented with shortness of breath; moderate right pleural effusion and signs of decompensated heart failure
-Home GDMT for HFrEF includes carvedilol, likely limited due to renal insufficiency; previous TTE with EF 35%
-She did have TTE performed yesterday, 02/13/2024, that showed recovery of systolic function (EF 55%)
-Was started on IV Lasix regimen; renal function and volume status both improving
-Has not had any hypoxemia documented here; weights and I's/O's not accurate
-Cardiology following; planning to transition to oral Lasix tomorrow
Plan
-Start oral Lasix regimen on 02/14 per cardiology
-Continue with sodium restricted diet
-Continue with carvedilol for GDMT
-Monitor volume status clinically
#Exudative right pleural effusion
#Leukocytosis
-Thoracentesis today with signs of exudative qualities per lights criteria; concern for parapneumonic effusion
-Fluid pH not consistent with complicated parapneumonic effusion/empyema, glucose levels normal
-White cell count here up trended to 24, was started on IV Zosyn empirically, now downtrend
-Pleural fluid with elevated WBC, normal glucose, pH 7.43; cannot rule out parapneumonic effusion
-Blood cultures taken on admission have remained negative upon final read
Plan
-Continue with IV Zosyn empirically
-Follow-up fluid culture from pleural fluid
-Trend CBC and temperature curve
-Repeat chest x-ray tomorrow morning to reassess
-Consider CT C/A/P if no signs of infection of pleural fluid
#Acute on chronic normocytic anemia
-Presented with hemoglobin 7.3, potentially symptomatic with dyspnea
-Was given 1 unit PRBC; suspect her dyspnea was more related to effusion and CHF
-Hemoglobin rebounded near 9.1 following PRBC, has down trended back to 7.4 today
-No obvious active bleeding; did have bleed from IV site 2 days ago and thoracentesis yesterday
-S/p 2 unit PRBC total after today
Plan
-Order 1 unit PRBC to be given now
-Continue to trend CBC and transfuse for hemoglobin goal >7 or presence of symptoms
-Order Hemoccult to assess for GI bleeding
-Consider stopping antiplatelet/DVT prophylax
#Left shoulder calcific tendinitis
-Has complained of left shoulder pain since being repositioned a few days ago
-X-ray without any acute findings, did show calcific tendinitis
-Supportive therapy with as needed analgesia
#KELLIE on CKD 3B
-Secondary to decompensated heart failure and hypervolemia, cardiorenal syndrome type 1
-Baseline creatinine 1.5; presented with creatinine near 2.2 however back near baseline
-Suspect that her new creatinine baseline is roughly 1.8
-Nephrology following
#CAD s/p PCI, CABG (2023)
-Home medications include beta-juan, aspirin, Plavix, high intensity
-Does have significant systolic dysfunction with EF 35%; Recovered EF per TTE here
-No current signs of ACS
#IDDM
-Most recent A1c 6.3%; per family blood sugar has been on the lower side more recently
-Home Lantus dose held; currently on ISS with Accu-Cheks only
#Essential hypertension
-Home medications include carvedilol, amlodipine, hydralazine
-No known hypertensive systemic
-Home meds continued with hold parameters
#Recent Sternal and Right LE Graft Donor Site Wound Dehiscence
-Wound care following
#H/O Complete Heart Block s/p Pacemaker/ICD
DVT proph: HSQ
Diet: 2 g sodium restricted
Code Status: Full Code
Anticipated Discharge: 24 - 48 hours
Subjective/Interval History
-
Date of Service: February 14, 2024
Seen and examined while sitting in the chair, daughter at the bedside. No acute events overnight. AFVSS this morning now on room air
Her daughter states she was able to lie flat without symptoms last evening following her thoracentesis. No new fevers or other acute complaints this morning. Daughter does have concerns about how noisy the room is.
Denies chest pain, dyspnea, fevers or chills, GI upset or issues, urinary issues, bleeding or bruising, paresthesias or weakness.
Objective Data
-
Labs:
Laboratory Results
02/14/24
08:15
WBC 21.6 H
Hgb 7.4 L
Hct 22.0 L
Plt Count 546 H
Sodium 145
Potassium 3.7
Chloride 102
Carbon Dioxide 27
BUN 54 H
Creatinine 1.9 H
Glucose 124 H
Calcium 9.3
Vital Signs:
Vital Signs
Temp Pulse Resp BP Pulse Ox
98.3 F 86 16 104/52 94
02/14/24 11:17 02/14/24 11:17 02/14/24 11:17 02/14/24 11:17 02/14/24 11:17
I&O
02/13/24 02/14/24 02/15/24
06:59 06:59 06:59
Intake Total 900 / 900 1080 / 1080
Output Total 550 / 550 1650 / 1650
Balance 350 / 350 -570 / -570
Review of Systems
-
History Source: Patient and Family
All other systems: Reviewed and negative
Physical Exam
-
General: No Apparent Distress, Comfortable and Other (Frail appearing)
HEENT: Normocephalic, Atraumatic, Moist Mucous Membranes and Anicteric
Respiratory: Non Labored Respirations and Decreased Breath Sounds (Right lung base); Negative Wheezes, Rales, Rhonchi or Accessory Resp Muscle Use
Cardiac: Regular Rhythm and S1/S2; Negative Murmur, Rub, JVD or Gallop
GI: Soft, Nontender, Nondistended and Normal Bowel Sounds
Genito-urinary: No Costovertebral Tender
Musculoskeletal: No Clubbing, No Cyanosis and No Edema
Skin: Warm, Dry and Other (RLE with wrapping/bandaging; sternal bandage without surrounding erythema or purulence); Negative Rash
Neuro: AO x 3, Nonfocal/Grossly Intact, Central Nerve's Intact and Other (Tired appearing)
Psych: Calm
Data Reviewed
-
Labs: Labs Reviewed by me, Discussed with Patient and Discussed with Family
[2024-02-14 12:07] LABS: Glucose - Point of Care 220 mg/dl (70-99)
[2024-02-14] MEDS: VITAMIN C 500 MG PO (12:11)
[2024-02-14] MEDS: FEOSOL 325 MG PO (12:11)
[2024-02-14] MEDS: NOVOLOG FLEXPEN-LOW RESISTANCE 2 UNITS SC (12:11)
--- NOTE | 2024-02-14 12:16 | W.PN.NEPH.PH ---
Today's Communication / Plan
-
follow BMP
Assessment/Plan
-
Assessment:
CAD
KELLIE on CKD3b (1.5)
SOB
HTN
HFrEF, decompensated
Edema
Diabetes mellitus type 2
Leukocytosis
Anemia
PPM
Plan:
Cr back at baseline
follow BMP
follow weights
on po lasix
abx need to be determined
d/w daughter
-
-
Date of Service: February 14, 2024
CC / HPI / ROS
-
Chief Complaint:
KELLIE
History of Present Illness:
Creatinine stable at 1.9
Hemodynamically stable
hgb 7.4 lower
Review of Systems:
Weights up
Nonoliguric
Labs
-
Labs:
WBC 21.6 10^3/uL (4.8-10.8) H 02/14/24 08:15
RBC 2.75 10^6/uL (4.20-5.40) L 02/14/24 08:15
Hgb 7.4 g/dL (12.0-16.0) L 02/14/24 08:15
Hct 22.0 % (37.0-47.0) L 02/14/24 08:15
Plt Count 546 10^3/uL (130-400) H 02/14/24 08:15
Sodium 145 mmol/L (135-145) 02/14/24 08:15
Potassium 3.7 mmol/L (3.5-5.1) 02/14/24 08:15
Chloride 102 mmol/L (98-107) 02/14/24 08:15
Carbon Dioxide 27 mmol/L (22-30) 02/14/24 08:15
BUN 54 mg/dl (7-17) H 02/14/24 08:15
Creatinine 1.9 mg/dL (0.6-1.0) H 02/14/24 08:15
eGFR 26.86 02/14/24 08:15
Glucose 124 mg/dl (70-99) H 02/14/24 08:15
Calcium 9.3 mg/dl (8.4-10.2) 02/14/24 08:15
Pfk-Z-Bfrfwldsuyg Pept 6770 pg/ml 02/10/24 18:51
Albumin 3.3 g/dl (3.5-5.0) L 02/10/24 18:51
Physical Exam
-
Vital Signs:
Vital Signs
Temp Pulse Resp BP Pulse Ox
98.3 F 86 16 104/52 94
02/14/24 11:17 02/14/24 11:17 02/14/24 11:17 02/14/24 11:17 02/14/24 11:17
Cardiovascular:: Regular rate and rhythm
Respiratory:: Bilateral: CTA
Lung Excursion:: Normal
Abdomen:: Nontender and Soft
Bowel Sounds:: Normal
Extremity Edema:: None: Bilateral:
--- NOTE | 2024-02-14 15:10 | CM ---
applications engineering manager reviewed patient's chart and patient has been denied at [facility] recommendation is for skilled rehab, options reviewed with patient and family and they will provide options so that the rn case management can make referrals.
Plan; Skilled placement rn case management will need to make referrals.
[2024-02-14 16:57] LABS: Glucose - Point of Care 155 mg/dl (70-99)
[2024-02-14] MEDS: NORVASC 5 MG PO (18:12)
[2024-02-14] MEDS: CRESTOR 20 MG PO (18:12)
[2024-02-14] MEDS: APRESOLINE PO (20:29)
[2024-02-14 21:27] LABS: Glucose - Point of Care 159 mg/dl (70-99)
[2024-02-14] MEDS: NEURONTIN 300 MG PO (21:58)
[2024-02-15 03:00] VITALS: BP 140/68
[2024-02-15] MEDS: ZOSYN 50 IV ×3 (04:03→15:17)
[2024-02-15] MEDS: TORADOL 15 MG IV ×2 (05:21→11:22)
[2024-02-15 06:00] VITALS: BMI 20.1
[2024-02-15 07:10] VITALS: BP 139/79
[2024-02-15 07:13] LABS: Blood Urea Nitrogen 54 mg/dl (7-17); Calcium 9.3 mg/dl (8.4-10.2); Carbon Dioxide 27 mmol/L (22-30); Chloride 103 mmol/L (98-107); Estimated Creatinine Clearance 21 ml/min; Glucose 154 mg/dl (70-99); Potassium 3.5 mmol/L (3.5-5.1); Sodium 143 mmol/L (135-145); eGFR 23.82
[2024-02-15 07:16] LABS: Glucose - Point of Care 164 mg/dl (70-99)
[2024-02-15 07:23] LABS: % Basophils 0.4 % (0-2); % Eosinophils 2.8 % (0-6); % Monocytes 6.3 % (1.7-9.3); % Neutrophils 77.5 % (42.2-75.2); Absolute Basophils 0.1 10^3/uL (0-0.2); Absolute Eosinophils 0.6 10^3/uL (0-0.7); Absolute Immature Granulocytes 0.2 10^3/uL (0-0.05); Absolute Lymphocytes 2.4 10^3/uL (1.2-3.4); Absolute Monocytes 1.2 10^3/uL (0.1-0.6); Absolute Neutrophils 15.3 10^3/uL (1.4-6.5); Hematocrit 26.9 % (37.0-47.0); Hemoglobin 8.9 g/dL (12.0-16.0); Mean Corp Hgb Conc. 33.1 g/dL (33.0-37.0); Mean Corpuscular Hgb 26.5 pg (27.0-31.0); Mean Corpuscular Volume 80.1 fL (81.0-99.0); Mean Platelet Volume 8.4 fL (7.4-10.4); Nucleated Red Blood Cells % 0 %; Platelet Count 554 10^3/uL (130-400); Red Blood Cell Count 3.36 10^6/uL (4.20-5.40); Red Cell Dist. Width 16.3 % (11.5-14.5); White Blood Cell Count 19.7 10^3/uL (4.8-10.8)
--- NOTE | 2024-02-15 08:27 | W.PN.CD ---
Today's Communication / Plan
-
-Previous ejection fraction 30%, now improved to 55-60% on echocardiogram yesterday with mild to moderate MR and moderate TR.
-Continue Lasix 20 mg daily.
-Continue carvedilol 12.5 mg PO BID.
-Will change from amlodipine 5 mg (no benefit in CHF) to Imdur 30 mg daily as there is benefit of combination Imdur/hydralazine in CHF patients (especially in -Faroese patients).
-No further cardiac recommendations at this time; Cardiology will remain available on an as-needed basis.
-Outpatient follow-up with Cardiology.
Impression / Plan
-
Ms. Baxter is a 78 years old woman with CAD, s/p PCI to RCA, LAD and LCx - last stent 2018, s/p CABG X4 11/29/23 with complete heart block and chronic systolic HF with LVEF of 30% s/p dual chamber ICD - [employer] 12/01/23 is admitted with acute heart
failure.
Fatigue/shortness of breath improved and normalized
-may be multifactorial contributing factors including - anemia, cardiomyopathy, heart failure with reduced ejection fraction and pleural effusion.
-Treatment of anemia as directed by primary team.
-s/p thoracentesis
Cardiomyopathy s/p ICD:
-Previous ejection fraction 30%, now improved to 55-60% on echocardiogram yesterday with mild to moderate MR and moderate TR.
-Continue Lasix 20 mg daily.
-Further GDMT has been limited by renal insufficiency
-Continue carvedilol 12.5 mg PO BID.
-Will change from amlodipine 5 mg (no benefit in CHF) to Imdur 30 mg daily as there is benefit of combination Imdur/hydralazine in CHF patients (especially in -[place]aro[place] patients).
.
CAD s/p recent CABG:
-Residual wound dehiscence.
-Patient previously had wound VAC follow-up with CT surgery
Anemia.
- Patient given 1 unit of PRBCs.
- Management as per primary team.
.
Diabetes. Management as directed by PCP
Physical Exam
Vital Signs/Labs
Vital Signs
Temp Pulse Resp BP Pulse Ox
99.1 F 118 20 139/79 92
02/15/24 07:10 02/15/24 07:10 02/15/24 07:10 02/15/24 07:10 02/15/24 07:10
02/14/24 02/15/24 02/16/24
06:59 06:59 06:59
Actual Weight 60.073 kg
02/15/24 05:56
02/15/24 05:56
Magnesium 2.5 mg/dl (1.6-2.3) H 02/11/24 06:47
02/10/24
18:51
Grx-T-Urpsvnsbyad Pept 6770
Physical Exam
Constitutional: No acute distress and Comfortable
EENT: Anicteric
Cardiovascular: Rhythm & rate is regular, Pedal edema is absent, Systolic murmur absent and S1S2 is normal
Respiratory: Respiratory effort normal and Lungs clear to auscul.
GI: Soft
Neuro/Psych: AO x 3
Data Reviewed
-
Date of Service: February 15, 2024
EKG: Tracing Personally Visualized and interpreted (Telemetry: Sinus rhythm)
Echo: Report Reviewed by me (EF 55-60%)
Labs: Labs Reviewed by me
[2024-02-15] MEDS: NOVOLOG FLEXPEN-LOW RESISTANCE 1 UNITS SC (08:44)
[2024-02-15] MEDS: APRESOLINE 50 MG PO ×2 (08:45→19:59)
[2024-02-15] MEDS: HEPARIN 5000 UNITS SC ×3 (08:45→23:58)
[2024-02-15] MEDS: COREG 12.5 MG PO ×2 (08:45→19:59)
[2024-02-15] MEDS: SENOKOT-S 1 TABLET PO ×2 (08:48→20:00)
[2024-02-15] MEDS: LOW STRENGTH ASPIRIN 81 MG PO (08:48)
[2024-02-15] MEDS: HYDROPHOR 1 APPLIC TOPICAL (08:48)
[2024-02-15] MEDS: PLAVIX 75 MG PO (08:48)
[2024-02-15] MEDS: IMDUR (EXTENDED RELEASE) 30 MG PO (08:48)
[2024-02-15] MEDS: LASIX 20 MG PO (08:48)
--- NOTE | 2024-02-15 10:30 | W.PN.HOSP.TC ---
Today's Communication/Plan
-
Continue IV Zosyn
Infectious disease consult
Bisacodyl suppository
Hemoccult testing
Oral Lasix
Assessment / Plan
Assessment / Plan
#Exudative right pleural effusion
#Leukocytosis
-Thoracentesis today with signs of exudative qualities per lights criteria; concern for parapneumonic effusion
-Fluid pH not consistent with complicated parapneumonic effusion/empyema, glucose levels normal
-White cell count here up trended to 24, was started on IV Zosyn empirically, now downtrend
-Pleural fluid with elevated WBC, normal glucose, pH 7.43; cannot rule out parapneumonic effusion
-Blood cultures taken on admission have remained negative upon final read
-Pleural fluid culture is without growth; white cell count continues to downtrend on antibiotic
Plan
-Continue with IV Zosyn empirically
-Trend CBC and temperature curve
-ID consult
-Consider CT C/A/P
#Acute on chronic normocytic anemia
-Differentials include occult bleeding, bone marrow process; unlikely hemolysis or nutritional deficiency
-She had an iron panel earlier in hospital stay that was consistent with anemia of chronic disease
-Presented with hemoglobin 7.3, received 1 unit PRBC, increased to 9.1 but downtrended back to 7.4
-No obvious active bleeding over the last couple of days, thoracentesis was last procedure
-S/p 2 unit PRBC total; hemoglobin this morning responded to 8.9
Plan
-Continue to trend CBC and transfuse for hemoglobin goal >7 or presence of symptoms
-Follow-up Hemoccult when she has bowel movement to rule out GI bleed
-Order reticulocyte count to tomorrow's labs to assess bone marrow
-Consider stopping antiplatelet/DVT prophylax
#Acute on chronic HFrecEF
-History of HFrEF with Takotsubo cardiomyopathy; status post IV diuretic regimen here
-She did have TTE performed yesterday, 02/13/2024, that showed recovery of systolic function (EF 55%)
-Continue Lasix 20 mg daily PO
-Continue GDMT with carvedilol, hydralazine/Imdur
#Left shoulder calcific tendinitis
-Has complained of left shoulder pain since being repositioned a few days ago
-X-ray without any acute findings, did show calcific tendinitis
-Supportive therapy with as needed analgesia
#KELLIE on CKD 3B
-Secondary to decompensated heart failure and hypervolemia, cardiorenal syndrome type 1
-Baseline creatinine 1.5; presented with creatinine near 2.2 however back near baseline
-Suspect that her new creatinine baseline is roughly 2.0
-Nephrology following
#CAD s/p PCI, CABG (2023)
-Home medications include beta-juan, aspirin, Plavix, high intensity
-Does have significant systolic dysfunction with EF 35%; Recovered EF per TTE here
-No current signs of ACS
#IDDM
-Most recent A1c 6.3%; per family blood sugar has been on the lower side more recently
-Home Lantus dose held; currently on ISS with Accu-Cheks only
#Essential hypertension
-Home medications include carvedilol, amlodipine, hydralazine
-No known hypertensive systemic
-Home meds continued with hold parameters
#Recent Sternal and Right LE Graft Donor Site Wound Dehiscence
-Wound care following
#H/O Complete Heart Block s/p Pacemaker/ICD
DVT proph: HSQ
Diet: 2 g sodium restricted
Code Status: Full Code
Anticipated Discharge: 24 - 48 hours
Subjective/Interval History
-
Date of Service: February 15, 2024
Seen and examined at the bedside. No acute events overnight. AFVSS this morning, remains on room air
Chest x-ray this morning showed no signs of reaccumulation to right pleural effusion. Hemoglobin responded to 1 unit PRBC yesterday. White cell count downtrending on antibiotics still.
She denies chest pain, dyspnea, fevers or chills, nausea/vomiting/diarrhea, urinary issues, bleeding or bruising, paresthesias or weakness. She does complain of constipation, last bowel movement on 02/14. Ordered bisacodyl suppository and will
consider mag citrate later today
Objective Data
-
Labs:
Laboratory Results
02/15/24
05:56
WBC 19.7 H
Hgb 8.9 L D
Hct 26.9 L
Plt Count 554 H
Sodium 143
Potassium 3.5
Chloride 103
Carbon Dioxide 27
BUN 54 H
Creatinine 2.1 H
Glucose 154 H
Calcium 9.3
Vital Signs:
Vital Signs
Temp Pulse Resp BP Pulse Ox
99.1 F 118 20 139/79 92
02/15/24 07:10 02/15/24 07:10 02/15/24 07:10 02/15/24 07:10 02/15/24 07:10
I&O
02/14/24 02/15/24 02/16/24
06:59 06:59 06:59
Intake Total 1080 / 1080 910 / 910
Output Total 1650 / 1650 650 / 650
Balance -570 / -570 260 / 260
Review of Systems
-
History Source: Patient
All other systems: Reviewed and negative
Physical Exam
-
General: No Apparent Distress, Comfortable and Other (Frail-appearing)
HEENT: Normocephalic, Atraumatic and Moist Mucous Membranes
Respiratory: Non Labored Respirations and Decreased Breath Sounds (Right base); Negative Wheezes, Rales, Rhonchi or Accessory Resp Muscle Use
Cardiac: Regular Rhythm and S1/S2; Negative Murmur, Rub or Gallop
GI: Soft, Nontender, Nondistended and Normal Bowel Sounds
Musculoskeletal: No Clubbing, No Cyanosis and No Edema
Skin: Warm, Dry and Normal Turgor; Negative Rash
Neuro: AO x 3, Nonfocal/Grossly Intact and Central Nerve's Intact
Psych: Calm
Data Reviewed
-
Diagnostic Radiology: Image personally visualized and interpreted, Discussed with Patient and Discussed with Family
Labs: Labs Reviewed by me, Discussed with Patient and Discussed with Family
[2024-02-15] MEDS: FEOSOL 325 MG PO (11:14)
[2024-02-15] MEDS: DULCOLAX 10 MG RECTAL (11:14)
[2024-02-15] MEDS: VITAMIN C 500 MG PO (11:14)
[2024-02-15 11:17] VITALS: BP 103/61
--- NOTE | 2024-02-15 11:20 | CM ---
sales development manager reviewed patient's chart and received a consult to check on pricing of medication, case folder reached out to [employer] and with BIN# [id number] PCN [id number], ID # [id number] Group # [id number] and calling [phone] and was informed that cost
of Farxiga and Entresto is 15% of total supplier cost, Farxiga 10mg $101.1 per month, and Entresto is $122.25 per month. sales development manager spoke with patient's daughter and she states that last October they were quoted a cost of $40 per month for Farxiga
and Jardiance. sales development manager was made aware that patient has PACE [phone].
Patient's daughters are requesting referral to [facility] and PM&R evaluation, referral sent to [facility] and per notes patient did not meet criteria for [facility]. Will await PM&R evaluation.
Meanwhile, patient's daughter has agreed to [facility] and [facility].
Plan; Rehab placement for patient.
[2024-02-15 11:22] LABS: Glucose - Point of Care 157 mg/dl (70-99)
[2024-02-15] MEDS: NOVOLOG FLEXPEN-LOW RESISTANCE SC (11:22)
--- NOTE | 2024-02-15 11:33 | W.PN.NEPH.PH ---
Today's Communication / Plan
-
follow BMP
Assessment/Plan
-
Assessment:
CAD
KELLIE on CKD3b (1.5)
SOB
HTN
HFrEF, decompensated
Edema
Diabetes mellitus type 2
Leukocytosis
Anemia
PPM
Plan:
follow BMP
follow weights
on po lasix
abx need to be determined
d/w daughter
-
-
Date of Service: February 15, 2024
CC / HPI / ROS
-
Chief Complaint:
KELLIE
History of Present Illness:
Creatinine up to 2.1
Hemodynamically stable
hgb up to 8.9
WBC down to 19.7
Review of Systems:
Weights lower
Nonoliguric
Labs
-
Labs:
WBC 19.7 10^3/uL (4.8-10.8) H 02/15/24 05:56
RBC 3.36 10^6/uL (4.20-5.40) L 02/15/24 05:56
Hgb 8.9 g/dL (12.0-16.0) L D 02/15/24 05:56
Hct 26.9 % (37.0-47.0) L 02/15/24 05:56
Plt Count 554 10^3/uL (130-400) H 02/15/24 05:56
Sodium 143 mmol/L (135-145) 02/15/24 05:56
Potassium 3.5 mmol/L (3.5-5.1) 02/15/24 05:56
Chloride 103 mmol/L (98-107) 02/15/24 05:56
Carbon Dioxide 27 mmol/L (22-30) 02/15/24 05:56
BUN 54 mg/dl (7-17) H 02/15/24 05:56
Creatinine 2.1 mg/dL (0.6-1.0) H 02/15/24 05:56
eGFR 23.82 02/15/24 05:56
Glucose 154 mg/dl (70-99) H 02/15/24 05:56
Calcium 9.3 mg/dl (8.4-10.2) 02/15/24 05:56
Sgg-R-Xvwrimztxej Pept 6770 pg/ml 02/10/24 18:51
Albumin 3.3 g/dl (3.5-5.0) L 02/10/24 18:51
Physical Exam
-
Vital Signs:
Vital Signs
Temp Pulse Resp BP Pulse Ox
97.6 F 87 18 103/61 95
02/15/24 11:17 02/15/24 11:17 02/15/24 11:17 02/15/24 11:17 02/15/24 11:17
Cardiovascular:: Regular rate and rhythm
Respiratory:: Bilateral: CTA
Lung Excursion:: Normal
Abdomen:: Nontender and Soft
Bowel Sounds:: Normal
Extremity Edema:: None: Bilateral:
[2024-02-15 13:39] LABS: Glucose - Point of Care 252 mg/dl (70-99)
[2024-02-15] MEDS: NOVOLOG FLEXPEN-LOW RESISTANCE 3 UNITS SC ×2 (13:43→17:47)
[2024-02-15] MEDS: APRESOLINE PO (13:48)
--- NOTE | 2024-02-15 13:58 | PTCARENOTE ---
Dulcolax suppository was given and with daughter's help to disimpact patient, pt was able to have a large soft to loose bowel movement. Some hemorrhoids noted.
[2024-02-15 15:37] VITALS: BP 119/65
[2024-02-15] MEDS: TYLENOL 1000 MG PO (15:48)
--- NOTE | 2024-02-15 16:36 | CON.ID ---
Consultation
-
Date/Time Consultation Requested: 02/15/2024 1043
Date/Time Consultation Performed: 02/15/2024 1600
Requesting Provider: Dr. Cruz
Performing Provider: Dr. Devine
Reason for Consultation: Leukocytosis
Chief Complaint / Past History
History of Present Illness
Evelyn Baxter is a 78-year-old female being evaluated at the request of Dr. Cruz in regards to persistent leukocytosis. History is obtained from chart review, along with patient's daughter who was at the bedside. Minimal history was obtainable
from the patient.
The patient is known to the Infectious Diseases service, having been seen approximately 1 month ago following dehiscence of a sternal wound. In further review of history, the patient presented to [facility] on 11/23/2023 for weakness and
fatigue. During that hospitalization she developed chest pain, and ultimately underwent coronary artery bypass on 11/28. She was admitted to [facility] from 12/05 through 12/23, and thereafter was discharged to home. She is looked after closely by
her daughters. She overall was feeling better and has been doing cardiac rehab.
She was readmitted in December following the acute onset of weakness. In the process of getting her to her chair she developed dehiscence of both her sternal wound and right lower extremity graft harvest site excision. Following that admission,
she was discharged to [facility] where she stayed only for a few days and then was taken home with family. While home she was using a wound VAC.
She presents back to the ER on 02/09 following an acute onset of shortness of breath earlier that a.m. She had been on diuretics, but recent lower extremity edema was noted and diuretic dose was increased. The daughter notes no history of fevers
while at home. In the ER, workup included CBC which revealed a white count of 23,000. Chest x-ray was performed which revealed a pleural effusion. Her hospital course has been significant for thoracentesis. The patient has been on antibiotics
(Zosyn) now for several days without any appreciable change in white count, and Infectious Diseases asked to weigh in.
Past History
Additional Past Medical History:
HTN
Dyslipidemia
CAD
DM
CKD
Additional Past Surgical History:
CABG
Cholecystectomy
PPM placement
Allergy History:
No Known Allergies Allergy (Verified 01/06/24 09:03)
Medications Reviewed: Yes
Current Antibiotics:
Zosyn 2.25 g IV every 6 hours (day #4)
Social History
Tobacco: Non-Smoker
Alcohol: None
Drug: None
Living: With Family
Employment: Retired
Family History
Family History: Not Pertinent
Review of Systems
Vital Signs
Temp Pulse Resp BP Pulse Ox
97.7 F 95 18 119/65 95
02/15/24 15:37 02/15/24 15:37 02/15/24 15:37 02/15/24 15:37 02/15/24 15:37
Physical Exam
Physical Exam
Constitutional: Comfortable, Chronically Ill and Non-toxic
Head: Normocephalic
Eyes: Pupils Equal, Pupils Round, No Conjunctival Hemorrhage and Sclera Anicteric
Oral: No Thrush and No Ulcers
Cardiovascular: Regular Rate and S1/S2; Negative S3/S4
Pulmonary: Clear and Non Labored; Negative Wheezes or Rales
Gastrointestinal: Soft, Non Tender, Non Distended, Normal Bowel Sounds, No Rebound and No Guarding
Extremities: Edema; Negative Cyanosis or Erythema
Wound: Other (A superior and inferior sternal wound is noted. Both are packed with iodoform packing.)
Neurological: Other (Slowly arousable to stimuli.)
Psychological: Calm
Lab / Diagnostic Study Results
02/15/24 05:56
02/15/24 05:56
Abs Immat Gran (auto) 0.2 10^3/uL (0-0.05) H 02/15/24 05:56
Absolute Neuts (auto) 15.3 10^3/uL (1.4-6.5) H 02/15/24 05:56
Absolute Lymphs (auto) 2.4 10^3/uL (1.2-3.4) 02/15/24 05:56
Absolute Monos (auto) 1.2 10^3/uL (0.1-0.6) H 02/15/24 05:56
Absolute Basos (auto) 0.1 10^3/uL (0-0.2) 02/15/24 05:56
Immature Gran % 1.0 % (0-0.5) H 02/15/24 05:56
Neutrophils % 77.5 % (42.2-75.2) H 02/15/24 05:56
Lymphocytes % 12.0 % (20.5-51.1) L 02/15/24 05:56
Monocytes % 6.3 % (1.7-9.3) 02/15/24 05:56
Eosinophils % 2.8 % (0-6) 02/15/24 05:56
Basophils % 0.4 % (0-2) 02/15/24 05:56
Urine WBC 16-20 /HPF (0-5) A 02/11/24 15:25
Ur Squamous Epith Cells 6-10 /LPF (Few) 02/11/24 15:25
Microbiology Results
Micro:
02/11/24 12:57 Blood Culture - Preliminary
Blood/Venous No Growth in 4 days- Final report to follow
02/13/24 08:10 Body Fluid Culture - Preliminary
Pleural Fluid No Growth After 48 Hours
Gram Stain - Preliminary
Imaging:
02/15/2024 CXR (portable): Small to moderate right pleural effusion without significant change. Cannot exclude tiny left pleural effusion. No pneumothorax noted. Pulmonary vascularity is top normal. Please see full dictation for additional
detail. Film personally viewed.
Assessment / Plan
Ongoing leukocytosis
-Etiology somewhat cryptic. No history of fevers; may be reactive
Sternal wound
Pleural effusion
- appears to be exudative given total protein, LDH and triglycerides
- cultures negative to date.
Anemia
KELLIE on CKD
HTN
Dyslipidemia
CAD; Hx CABG 10/2023
DM
CKD
Recommendations:
Continue antibiotics, although transition to ceftriaxone as there does not appear to be a need for anaerobic coverage.
I have obtained a wound culture from the superior sternal wound as nursing reported a small amount of purulence on the packing.
Continue to monitor white count and temperature curve.
Await further culture data.
Further recommendations as additional data is returned.
[2024-02-15 16:39] LABS: Glucose - Point of Care 253 mg/dl (70-99)
[2024-02-15] MEDS: CRESTOR 20 MG PO (17:46)
[2024-02-15] MEDS: STERILE WATER FOR INJECTION 20 ML IV (17:47)
[2024-02-15] MEDS: ROCEPHIN 2000 MG IV (17:48)
[2024-02-15 19:25] VITALS: BP 129/66
[2024-02-15 21:17] LABS: Glucose - Point of Care 177 mg/dl (70-99)
[2024-02-15] MEDS: NEURONTIN 300 MG PO (22:09)
[2024-02-15 23:05] VITALS: BP 120/60
[2024-02-16] VITALS (7 sets, daily range): BP systolic 116–170; BP diastolic 68–93; PULSE 94; O2SAT 93; BMI 19.8
[2024-02-16 08:17] LABS: % Basophils 0.5 % (0-2); % Eosinophils 4.5 % (0-6); % Immature Granulocytes 0.9 % (0-0.5); % Lymphocytes 13.7 % (20.5-51.1); % Monocytes 7.4 % (1.7-9.3); Absolute Basophils 0.1 10^3/uL (0-0.2); Absolute Eosinophils 0.9 10^3/uL (0-0.7); Absolute Immature Granulocytes 0.2 10^3/uL (0-0.05); Absolute Lymphocytes 2.7 10^3/uL (1.2-3.4); Absolute Monocytes 1.4 10^3/uL (0.1-0.6); Absolute Neutrophils 14.3 10^3/uL (1.4-6.5); Hematocrit 27.4 % (37.0-47.0); Mean Corp Hgb Conc. 32.8 g/dL (33.0-37.0); Mean Corpuscular Hgb 26.6 pg (27.0-31.0); Mean Corpuscular Volume 81.1 fL (81.0-99.0); Mean Platelet Volume 8.4 fL (7.4-10.4); Nucleated Red Blood Cells % 0 %; Platelet Count 584 10^3/uL (130-400); Red Blood Cell Count 3.38 10^6/uL (4.20-5.40); Red Cell Dist. Width 16.4 % (11.5-14.5); White Blood Cell Count 19.5 10^3/uL (4.8-10.8)
[2024-02-16] MEDS: IMDUR (EXTENDED RELEASE) 30 MG PO (08:26)
[2024-02-16] MEDS: HYDROPHOR 1 APPLIC TOPICAL (08:26)
[2024-02-16] MEDS: LASIX 20 MG PO (08:26)
[2024-02-16] MEDS: PLAVIX 75 MG PO (08:26)
[2024-02-16] MEDS: LOW STRENGTH ASPIRIN 81 MG PO (08:26)
[2024-02-16] MEDS: SENOKOT-S 1 TABLET PO ×2 (08:26→20:42)
[2024-02-16] MEDS: APRESOLINE 50 MG PO ×2 (08:26→20:42)
[2024-02-16] MEDS: COREG 12.5 MG PO ×2 (08:27→20:42)
[2024-02-16] MEDS: HEPARIN 5000 UNITS SC ×2 (08:27→17:29)
[2024-02-16] MEDS: TYLENOL 1000 MG PO ×3 (08:33→22:21)
[2024-02-16 08:40] LABS: Glucose - Point of Care 158 mg/dl (70-99)
[2024-02-16] MEDS: NOVOLOG FLEXPEN-LOW RESISTANCE 1 UNITS SC (08:41)
[2024-02-16 08:43] LABS: Blood Urea Nitrogen 65 mg/dl (7-17); Calcium 9.2 mg/dl (8.4-10.2); Carbon Dioxide 27 mmol/L (22-30); Chloride 102 mmol/L (98-107); Estimated Creatinine Clearance 19 ml/min; Glucose 149 mg/dl (70-99); Sodium 146 mmol/L (135-145); eGFR 21.36
[2024-02-16 08:49] LABS: Potassium 3.7 mmol/L (3.5-5.1)
--- NOTE | 2024-02-16 10:41 | W.PN.HOSP.TC ---
Today's Communication/Plan
-
Continue IV ceftriaxone
Trend CBC and temperature curve
Follow-up wound cultures
Trend BMP
Assessment / Plan
Assessment / Plan
#Exudative right pleural effusion
#Leukocytosis
-Thoracentesis today with signs of exudative qualities per lights criteria; concern for parapneumonic effusion
-Fluid pH not consistent with complicated parapneumonic effusion/empyema, glucose levels normal
-White cell count here up trended to 24, was started on IV Zosyn empirically, now downtrend
-Pleural fluid with elevated WBC, normal glucose, pH 7.43; cannot rule out parapneumonic effusion
-Blood cultures taken on admission have remained negative upon final read
-Pleural fluid culture is without growth; white cell count continues to downtrend on antibiotic
-ID following, recommended transition from Zosyn to ceftriaxone
Plan
-Continue with IV ceftriaxone empirically for now
-Trend CBC and temperature curve
-Follow-up with sternal wound culture
-Consider CT C/A/P
#Acute on chronic normocytic anemia
-Differentials include occult bleeding, bone marrow process; unlikely hemolysis or nutritional deficiency
-She had an iron panel earlier in hospital stay that was consistent with anemia of chronic disease
-No obvious active bleeding over the last couple of days, thoracentesis was last procedure
-S/p 2 unit PRBC total; hemoglobin responded appropriately with hemoglobin 8.9�9.0 next draws
-Reticulocyte count 1%, and anticipated being slightly higher due to her anemia, cannot rule out bone marrow etiology
-Continue to trend CBC
#Acute on chronic HFrecEF
-History of HFrEF with Takotsubo cardiomyopathy; status post IV diuretic regimen here
-She did have TTE performed yesterday, 02/13/2024, that showed recovery of systolic function (EF 55%)
-Was transition to oral Lasix however renal function seems to be worsening now
-Continue GDMT with carvedilol, hydralazine/Imdur
-Plan to speak with nephrology/cardiology about volume status
#Left shoulder calcific tendinitis
-Has complained of left shoulder pain since being repositioned a few days ago
-X-ray without any acute findings, did show calcific tendinitis
-Supportive therapy with as needed analgesia
#KELLIE on CKD 3B
-Secondary to decompensated heart failure and hypervolemia, cardiorenal syndrome type 1
-Baseline creatinine 1.5; presented with creatinine near 2.2 however back near baseline
-Suspect that her new creatinine baseline is roughly 2.0
-Nephrology following
#CAD s/p PCI, CABG (2023)
-Home medications include beta-juan, aspirin, Plavix, high intensity
-Does have significant systolic dysfunction with EF 35%; Recovered EF per TTE here
-No current signs of ACS
#IDDM
-Most recent A1c 6.3%; per family blood sugar has been on the lower side more recently
-Home Lantus dose held; currently on ISS with Accu-Cheks only
#Essential hypertension
-Home medications include carvedilol, amlodipine, hydralazine
-No known hypertensive systemic
-Home meds continued with hold parameters
#Recent Sternal and Right LE Graft Donor Site Wound Dehiscence
-Wound care following
-No obvious signs of infection though culture pending
#H/O Complete Heart Block s/p Pacemaker/ICD
DVT proph: HSQ
Diet: 2 g sodium restricted
Code Status: Full Code
Anticipated Discharge: 24 - 48 hours
Subjective/Interval History
-
Date of Service: February 16, 2024
Seen and examined at bedside. No acute events reported overnight. AFVSS this morning on low levels of oxygen.
She does states she has some shortness of breath when lying flat overnight, similar symptoms with pleural effusion before. Repeat chest x-ray ordered. Renal function worsened with creatinine up from 2.1-2.3.
She denies any acute complaints including chest pain, dyspnea, fevers or chills, GI issues, urinary issues, bleeding or bruising, paresthesias or weakness. She did have bowel movement yesterday after multiple days of being constipated.
Objective Data
-
Labs:
Laboratory Results
02/16/24
07:53
WBC 19.5 H
Hgb 9.0 L
Hct 27.4 L
Plt Count 584 H
Sodium 146 H
Potassium 3.7
Chloride 102
Carbon Dioxide 27
BUN 65 H
Creatinine 2.3 H
Glucose 149 H
Calcium 9.2
Vital Signs:
Vital Signs
Temp Pulse Resp BP Pulse Ox
98.7 F 119 18 170/93 100
02/16/24 08:00 02/16/24 08:26 02/16/24 08:00 02/16/24 08:26 02/16/24 08:00
I&O
02/15/24 02/16/24 02/17/24
06:59 06:59 06:59
Intake Total 910 / 910 820 / 820
Output Total 650 / 650
Balance 260 / 260 820 / 820
Review of Systems
-
History Source: Patient
All other systems: Reviewed and negative
Physical Exam
-
General: No Apparent Distress, Comfortable and Other (Frail-appearing)
HEENT: Normocephalic, Atraumatic and Moist Mucous Membranes
Respiratory: Non Labored Respirations and Decreased Breath Sounds (Right lung base); Negative Wheezes, Rales, Rhonchi or Accessory Resp Muscle Use
Cardiac: Regular Rhythm and S1/S2; Negative Murmur, Rub, JVD or Gallop
GI: Soft, Nontender, Nondistended and Normal Bowel Sounds
Musculoskeletal: No Clubbing, No Cyanosis and No Edema
Skin: Warm and Dry; Negative Rash
Neuro: AO x 3, Nonfocal/Grossly Intact and Central Nerve's Intact
Psych: Calm
Data Reviewed
-
Diagnostic Radiology: Discussed with Family
Labs: Labs Reviewed by me, Discussed with Patient and Discussed with Family
[2024-02-16 12:31] LABS: Glucose - Point of Care 217 mg/dl (70-99)
[2024-02-16] MEDS: VITAMIN C 500 MG PO (13:30)
[2024-02-16] MEDS: APRESOLINE PO (13:30)
[2024-02-16] MEDS: FEOSOL 325 MG PO (13:30)
[2024-02-16] MEDS: NOVOLOG FLEXPEN-LOW RESISTANCE 2 UNITS SC (13:31)
--- NOTE | 2024-02-16 14:50 | W.PN.NEPH.PH ---
Today's Communication / Plan
-
d/c toradol
Assessment/Plan
-
Assessment:
CAD
KELLIE on CKD3b (1.5)
SOB
HTN
HFrEF, decompensated
Edema
Diabetes mellitus type 2
Leukocytosis
Anemia
PPM
Plan:
follow BMP, creatinine up to 2.3
CXR with small righ pleural effusion
follow weights
on po lasix
on Ceftriaxone
DC Toradol as patient is in acute renal failure
-
-
Date of Service: February 16, 2024
CC / HPI / ROS
-
Chief Complaint:
KELLIE
History of Present Illness:
Creatinine up to 2.3
Hemodynamically stable
hgb up to 8.9
WBC down to 19.5
Review of Systems:
Weights lower
Nonoliguric
Labs
-
Labs:
WBC 19.5 10^3/uL (4.8-10.8) H 02/16/24 07:53
RBC 3.38 10^6/uL (4.20-5.40) L 02/16/24 07:53
Hgb 9.0 g/dL (12.0-16.0) L 02/16/24 07:53
Hct 27.4 % (37.0-47.0) L 02/16/24 07:53
Plt Count 584 10^3/uL (130-400) H 02/16/24 07:53
Sodium 146 mmol/L (135-145) H 02/16/24 07:53
Potassium 3.7 mmol/L (3.5-5.1) 02/16/24 07:53
Chloride 102 mmol/L (98-107) 02/16/24 07:53
Carbon Dioxide 27 mmol/L (22-30) 10/18/24 07:53
BUN 65 mg/dl (7-17) H 02/16/24 07:53
Creatinine 2.3 mg/dL (0.6-1.0) H 02/16/24 07:53
eGFR 21.36 02/16/24 07:53
Glucose 149 mg/dl (70-99) H 02/16/24 07:53
Calcium 9.2 mg/dl (8.4-10.2) 02/16/24 07:53
Hmv-Q-Eyeglnbofzx Pept 6770 pg/ml 02/10/24 18:51
Albumin 3.3 g/dl (3.5-5.0) L 02/10/24 18:51
Physical Exam
-
Vital Signs:
Vital Signs
Temp Pulse Resp BP Pulse Ox
97.8 F 88 18 118/68 98
02/16/24 12:18 02/16/24 12:18 02/16/24 12:18 02/16/24 13:30 02/16/24 12:18
Cardiovascular:: Regular rate and rhythm
Respiratory:: Bilateral: CTA
Lung Excursion:: Normal
Abdomen:: Nontender and Soft
Bowel Sounds:: Normal
Extremity Edema:: None: Bilateral:
--- NOTE | 2024-02-16 15:48 | CM ---
Patient and family are waiting on a re-evaluation from [facility], physiatry to evaluate, physician has placed request.
Plan; Wait on outcome of review from [facility]. Family have not selected any skilled facilities.
--- NOTE | 2024-02-16 16:03 | W.PN.ID1 ---
Date of Service
Date of Service: February 16, 2024
Today's Communication
Continue antibiotics. Check CT chest
Assessment / Plan
Ongoing leukocytosis
-Etiology somewhat cryptic. No history of fevers; may be reactive
Sternal wound
Pleural effusion
- appears to be exudative given total protein, LDH and triglycerides
- cultures negative to date.
Anemia
KELLIE on CKD
HTN
Dyslipidemia
CAD; Hx CABG 10/2023
DM
CKD
Recommendations:
Continue ceftriaxone.
Wound cultures obtained yesterday revealed growth of a gram-negative xi; awaiting further identification.
Case discussed with CT Surgery. CT of chest recommended, and I will order.
Check ESR and CRP.
Continue to monitor white count and temperature curve.
Await further culture data.
Further recommendations as additional data is returned.
����������������������������������������������������������
Chief Complaint
-: Leukocytosis
Subjective / Review of Systems
Patient seen and examined. Reports feeling improved today. Now that she is awake, she admits to ongoing sternal discomfort.
Review of Systems: No Fever
Vital Signs / Physical Exam
Vital Signs
Vital Signs
Temp Pulse Resp BP Pulse Ox
97.8 F 88 18 118/68 98
02/16/24 12:18 02/16/24 12:18 02/16/24 12:18 02/16/24 13:30 02/16/24 12:18
Physical Exam
Constitutional: No Acute Distress, Comfortable, Chronically Ill and Non-toxic
Eyes: Sclera Anicteric
Cardiovascular: Regular Rate and S1/S2; Negative S3/S4
Pulmonary: Clear and Non Labored; Negative Wheezes or Rales
Gastrointestinal: Soft and Non Tender
Extremities: Negative Cyanosis or Erythema
Wound: Other (Sternal wounds dressed.)
Neurological: Awake and Alert
Psychological: Calm
Objective Data
Lab Data
Lab Results
02/16/24 07:53
02/16/24 07:53
Estimated Creat Clear 19 ml/min 02/16/24 07:53
Total Bilirubin 0.2 mg/dl (0.2-1.3) 02/10/24 18:51
AST 21 U/L (14-36) 02/10/24 18:51
ALT 20 U/L (0-35) 02/10/24 18:51
Alkaline Phosphatase 78 U/L (38-126) 02/10/24 18:51
Most recent labs reviewed.
Micro Results:
02/11/24 12:57 Blood Culture - Final
Blood/Venous No Growth - Final Report
02/15/24 16:43 Wound Culture - Preliminary
Chest - Unspecified Gram negative bacilli
Gram Stain - Preliminary
02/13/24 08:10 Body Fluid Culture - Final
Pleural Fluid No Growth After 72 Hours
Gram Stain - Final
Imaging:
02/15/2024 CXR (portable): Small to moderate right pleural effusion without significant change. Cannot exclude tiny left pleural effusion. No pneumothorax noted. Pulmonary vascularity is top normal. Please see full dictation for additional
detail. Film personally viewed.
Care Review
Plan reviewed with: Physician
--- NOTE | 2024-02-16 16:30 | CON.MD ---
Documented by User: Chantel Curry PA-C 02/16/24 17:59
Consultation - Medical
-
Referring Provider: Leonard Cruz
Chief Complaint: Debility
History of Present Illness: This is a 78 year old Female with PMH of ( CAD, last stent 2018, chronic systolic HF, NIDDM, HTN, HLD, and CKD3, pulmonary edema, cardiomyopathy) who underwent coronary artery bypass on 11/28. She was admitted to [facility] from 12/05 through 12/23, and thereafter was discharged to home. She overall was feeling better and has been doing cardiac rehab. She was readmitted in December following the acute onset of weakness. In the process of getting her to her chair
she developed dehiscence of both her sternal wound and right lower extremity graft harvest site excision. Following that admission, she was discharged to [facility] where she stayed only for a few days and then was taken home with family. While home
she was using a wound VAC.
On February 09, she presented to the ED with shortness of breath and increased dyspnea on exertion. Her Lasix was increased for about one week which she completed three days ago for noted lower extremities edema with some improvement.
she was noted to be significantly anemic with a hemoglobin of 7.3. No evidence of acute bleeding. Chest x-ray notable for moderate size right pleural effusion. She was admitted and was transfused 1 unit of PRBCs. Nephrology was consulted for a
component of acute on chronic kidney injury with a creatinine up to 2.2.. proBNP was 6720. Troponin 0.025 iron 36, percent saturation 18 TIBC 197.
Her hospital course has been significant for thoracentesis. She has been on antibiotics (Zosyn) for several days without any appreciable change in white count, and infectious disease was consulted. Purulent drainage from chest wound dressing sent
out for culture. Preliminary culture + for gram negative xi. awaiting further identification. Case discussed with CT Surgery. CT of chest recommended, and check ESR and CRP.
02/15/2024 CXR (portable): Small to moderate right pleural effusion without significant change. Cannot exclude tiny left pleural effusion. No pneumothorax noted. Pulmonary vascularity is top normal.
Past Medical History: CAD, last stent 2019, chronic systolic HF, NIDDM, HTN, HLD, CKD3, prolonged QTc, left foot pain, umbilical hernia
Procedure History: CABG x 4-(11/28), cholecystectomy
Family History: None pertinent
Social History:
Functional Level Premorbidly: Independent with all activities
Functional Level Currently: functional mobility- max assist of , ambulates 12x1 with RW with mod assist of 2, transfer-mod assist
Tobacco: Denies
Alcohol: Denies
Drug use: Denies
Lives with: family
24-hour assistance available: No
Number of floors: 1
# steps to enter: 0
# steps to second floor: 0
Potential First floor set up:yes
Driving: yes
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
�
Allergies:
Allergy/AdvReac Type Severity Reaction Status Date / Time
No Known Allergies Allergy Unverified 11/20/23 06:21
Review of Systems:
Constitutional: (x) Normal _
Eye: (x) Normal _
Ear/Nose/Throat: (x) Normal _
Respiratory: (x) Normal _
Cardiovascular: (x) s/p cabg
Gastrointestinal: (x) Normal _
Genitourinary: (x) kellie
Musculoskeletal: (x) abNormal _ foot drop both legs since hospital
Integumentary: (x) Normal _
Neurologic: (x) Normal _
Psychiatric: (x) Normal _
Endocrine: (x) Normal _
Hematologic/Lymphatic: (x) Normal _
Allergic/Immunologic: (x) Normal _
Medications:
Active Current Visit Medication List
Category Date Time Status
Acetaminophen [Tylenol] Med 02/12/24 14:08 Active
1,000 mg PO Q6HPRN PRN
Ascorbic Acid [Vitamin C] Med 02/11/24 12:00 Active
500 mg PO DAILY@1200
Aspirin Chewable [Low Strength Aspirin] Med 02/11/24 08:00 Active
81 mg PO DAILY
Carvedilol [Coreg] Med 02/11/24 08:00 Active
12.5 mg PO BID
CefTRIAXone [Rocephin] Med 02/15/24 18:00 Active
2,000 mg IV Q24H
Clopidogrel Bisulfate [Plavix] Med 02/11/24 08:00 Active
75 mg PO DAILY
Dextrose 50%-Water [Dextrose 50% Syringe] Med 02/11/24 00:37 Active
12.5 grams IV [id number] PRN
Docusate W/Senna [Senokot-S] Med 02/11/24 11:00 Active
1 tablet PO BID
Ferrous Sulfate [Feosol] Med 02/11/24 12:00 Active
325 mg PO DAILY@1200
Flush (0.9% Sodium Chloride) [Flush (Nss)] Med 02/11/24 01:00 Active
See Dose Instructions IV PER PROTOCOL
Furosemide [Lasix] Med 02/15/24 08:00 Active
20 mg PO DAILY
Gabapentin [Neurontin] Med 02/11/24 22:00 Active
300 mg PO HS
Glucagon [GlucaGen] Med 02/11/24 00:37 Active
1 mg IM PRN PRN
Heparin Med 02/11/24 16:00 Active
5,000 units SC Q8
HydrALAZINE [Apresoline] Med 02/11/24 08:00 Active
50 mg PO TID@0800,1400,2000
ISOSORBIDE MONOnitrate ER [Imdur (Extended Release)] Med 02/16/24 08:00 Active
30 mg PO DAILY
Insulin Aspart Corrective Low [Novolog Flexpen-Low Med 02/11/24 07:30 Active
Resistance]
See Protocol SC AC
Ketorolac [Toradol] Med 02/12/24 14:09 Active
15 mg IV Q6HPRN PRN
Petrolatum/Mineral Oil [Hydrophor] Med 02/13/24 08:00 Active
See Dose Instructions TOPICAL DAILY
Rosuvastatin Calcium [Crestor] Med 02/11/24 18:00 Active
20 mg PO QPM
Sterile Water [Sterile Water For Injection] Med 02/15/24 18:00 Active
20 ml IV Q24H
Vitals:
Temp Pulse Resp BP Pulse Ox
98.7 F 110 18 170/93 100
02/16/24 08:00 02/16/24 08:00 02/16/24 08:00 02/16/24 08:00 02/16/24 08:00
Height 5 ft 8 in
Actual Weight 59.165 kg
Body Mass Index (BMI) 19.8
Physical Exam:
General Appearance/Observation: Well-developed, well-nourished female in no apparent distress.Looks tired and pale
Pain/Comfort Assessment: minimal chest
Mood/Affect: Appropriate, pleasant, tired
Integumentary/Operative Site: superior and inferior sternal incisions packed with iodoform packing and with dressing
Pressure Ulcer Evaluation: absent over heels
Other Type of Wound:
Eyes: Conjunctiva/Lids: normal ��� Pupils: pupils equal round and reactive to light and Accommodation
Ears/Nose/Throat: oral mucosa dry,� throat clear.������������ Lips/Teeth/Gums: lips dry
Neck: left muscle tenderness with swelling
Cardiovascular: Heart: regular, no murmur
Pulses: dorsalis pedis 1+ bilaterally
Respiratory: Respiratory Effort/Chest Expansion: normal ������� Auscultation: Clear to auscultation bilaterally
Gastrointestinal: abdomen not tender, no distension, normal abdominal bowel sounds
Genitourinary: No Jones
Extremities: Edema: bilateral ankle/feet Cyanosis: None Trophic changes: None
Neurology Exam:
Orientation: Alert, Oriented to self, Time, Place
Memory: Intact for immediate medical concerns
Comprehension: Intact
Two step command: Intact
Naming: Intact
Cranial Nerves:
CNII: Pupillary light reflex: Intact��� Visual Field: NT
CN III, IV, : Extraocular muscles: Intact
CN V: Facial Sensation at Forehead: Intact, Maxilla: Intact, Mandible: Intact
CN VII: Facial movement: Symmetric
CN VIII: Hearing: Normal
CN IX/X: Speech & swallow: hypophonia Position of Uvula: Midline
CN XI: Shoulder shrug: Symmetric
Sensory:
Light touch: Intact in bilateral upper and lower extremities
��
Reflexes:
Biceps: absent bilaterally
Brachioradialis: absent bilaterally
Triceps: absent+ bilaterally
Patellar: 0 bilaterally
Achilles: 0 bilaterally
Babinski: no response bilaterally
Isabella: Negative bilaterally
Cerebellar: Dysmetria/Ataxia: NT
Musculoskeletal: Motor: (Manual muscle scale 0-5)
Muscle SA EF WE EE FF FA HF KE DF EHL PF
Right� >3+ >3+ 5 >3+ 2+ 3+ 0 0 1
Left >3+ >3+ 5 >3+ 2+ 3+ 2 2 2
Tone: Normal in all extremities
Range of Motion: Passively within normal limits, did not fully test arms due to recent surgery
Labs:
Labs
WBC 19.5 10^3/uL (4.8-10.8) H 02/16/24 07:53
RBC 3.38 10^6/uL (4.20-5.40) L 02/16/24 07:53
Hgb 9.0 g/dL (12.0-16.0) L 02/16/24 07:53
Hct 27.4 % (37.0-47.0) L 02/16/24 07:53
MCV 81.1 fL (81.0-99.0) 02/16/24 07:53
MCH 26.6 pg (27.0-31.0) L 02/16/24 07:53
MCHC 32.8 g/dL (33.0-37.0) L 02/16/24 07:53
RDW 16.4 % (11.5-14.5) H 02/16/24 07:53
Plt Count 584 10^3/uL (130-400) H 02/16/24 07:53
MPV 8.4 fL (7.4-10.4) 02/16/24 07:53
Abs Immat Gran (auto) 0.2 10^3/uL (0-0.05) H 02/16/24 07:53
Absolute Neuts (auto) 14.3 10^3/uL (1.4-6.5) H 02/16/24 07:53
Absolute Lymphs (auto) 2.7 10^3/uL (1.2-3.4) 02/16/24 07:53
Absolute Monos (auto) 1.4 10^3/uL (0.1-0.6) H 02/16/24 07:53
Absolute Eos (auto) 0.9 10^3/uL (0-0.7) H 02/16/24 07:53
Absolute Basos (auto) 0.1 10^3/uL (0-0.2) 02/16/24 07:53
Immature Gran % 0.9 % (0-0.5) H 02/16/24 07:53
Neutrophils % 73.0 % (42.2-75.2) 02/16/24 07:53
Lymphocytes % 13.7 % (20.5-51.1) L 02/16/24 07:53
Monocytes % 7.4 % (1.7-9.3) 02/16/24 07:53
Eosinophils % 4.5 % (0-6) 02/16/24 07:53
Basophils % 0.5 % (0-2) 02/16/24 07:53
Nucleated RBC % 0 % 02/16/24 07:53
Retic Count 1.0 % (0.4-2.8) 02/16/24 07:53
Sodium 143 mmol/L (135-145) 02/15/24 05:56
Potassium 3.5 mmol/L (3.5-5.1) 02/15/24 05:56
Chloride 103 mmol/L (98-107) 02/15/24 05:56
Carbon Dioxide 27 mmol/L (22-30) 02/15/24 05:56
BUN 54 mg/dl (7-17) H 02/15/24 05:56
Creatinine 2.1 mg/dL (0.6-1.0) H 02/15/24 05:56
Estimated Creat Clear 21 ml/min 02/15/24 05:56
eGFR 23.82 02/15/24 05:56
Glucose 154 mg/dl (70-99) H 02/15/24 05:56
Calcium 9.3 mg/dl (8.4-10.2) 02/15/24 05:56
Magnesium 2.5 mg/dl (1.6-2.3) H 02/11/24 06:47
Iron 36 ug/dl (37-170) L 02/10/24 18:51
TIBC 197 ug/dl (265-497) L 02/10/24 18:51
% Saturation 18 % (20-50) L 02/10/24 18:51
Ferritin 960.0 ng/ml (11.1-264.0) H 02/10/24 18:51
Total Bilirubin 0.2 mg/dl (0.2-1.3) 02/10/24 18:51
AST 21 U/L (14-36) 02/10/24 18:51
ALT 20 U/L (0-35) 02/10/24 18:51
Alkaline Phosphatase 78 U/L (38-126) 02/10/24 18:51
Lactate Dehydrogenase 214 U/L (120-246) 02/13/24 05:50
Troponin I 0.025 ng/ml 02/10/24 18:51
Hbf-R-Xpiplsylcxb Pept 6770 pg/ml 02/10/24 18:51
Total Protein 6.7 g/dl (6.3-8.2) 02/13/24 05:50
Albumin 3.3 g/dl (3.5-5.0) L 02/10/24 18:51
Vitamin B12 > 1000 pg/ml (239-931) H 02/10/24 18:51
Folate > 20.0 ng/ml (2.76-20) H 02/10/24 18:51
Urine Color Straw 02/11/24 15:25
Urine Clarity Clear (Clear) 02/11/24 15:25
Urine pH 6.0 (5.0-9.0) 02/11/24 15:25
Ur Specific [place] 1.015 (<1.030) 02/11/24 15:25
Urine Ketones Negative (Negative) 02/11/24 15:25
Urine Occult Blood Negative (Negative) 02/11/24 15:25
Urine Nitrite Negative (Negative) 02/11/24 15:25
Urine Bilirubin Negative (Negative) 02/11/24 15:25
Urine Urobilinogen Negative (Neg - 1+) 02/11/24 15:25
Ur Leukocyte Esterase Trace (Negative) A 02/11/24 15:25
Urine RBC 0-2 /HPF (0-2) 02/11/24 15:25
Urine WBC 16-20 /HPF (0-5) A 02/11/24 15:25
Ur Squamous Epith Cells 6-10 /LPF (Few) 02/11/24 15:25
Urine Bacteria Few (Negative) A 02/11/24 15:25
Urine Creatinine 20.600 mg/dl 02/11/24 15:25
Urine Sodium 109 mmol/L (30-90) H 02/11/24 15:25
Urine Glucose Negative (Negative) 02/11/24 15:25
Urine Albumin Trace (Neg - Trace) 02/11/24 15:25
Fluid pH 7.43 02/13/24 08:10
Fluid WBC 1662 /CUMM 02/13/24 08:10
Fluid WBC Cancelled 02/13/24 08:10
Fluid Mononuclear Cell 38.2 % 02/13/24 08:10
Fluid Mononuclear Cell Cancelled 02/13/24 08:10
Fl Polymorphonucl Cell 61.8 % 02/13/24 08:10
Fl Polymorphonucl Cell Cancelled 02/13/24 08:10
Fluid Other Cells Cancelled 02/13/24 08:10
Fluid Other Cells Not Reportable 02/13/24 08:10
Fluid Diff Path Review Cancelled 02/13/24 08:10
Fluid Diff Path Review Not Reportable 02/13/24 08:10
Fluid Glucose 119 mg/dl 02/13/24 08:10
Fluid Total Protein 4.7 g/dl 02/13/24 08:10
Fluid Albumin 2.1 g/dl 02/13/24 08:10
Fluid Albumin Cancelled 02/13/24 08:10
Fluid LDH 155 U/L 02/13/24 08:10
Fluid Amylase 59 U/L 02/13/24 08:10
Fluid Triglycerides < 30 mg/dl 02/13/24 08:10
POC Glucose 177 mg/dl (70-99) H 02/15/24 21:15
Blood Type AB POS 02/14/24 11:59
Antibody Screen Negative (Negative) 02/14/24 11:59
Crossmatch IS Only See Detail 02/14/24 11:59
Diagnostic: HPI
Left shoulder pain:
There is calcification at the distal supraspinatus tendon suggesting calcific tendinitis
02/15/24: chest xray- Lines/Tubes/Devices: Anterior left chest wall pacemaker/AICD.
Small right pleural effusion, unchanged compared to recent prior studies. Small left basilar opacity, likely reflective of a tiny effusion and/or airspace consolidation/atelectasis. No pneumothorax.
Lab Results: Chest wound culture- + for Gram negative Bacilli
Assessment: 78 year old Female with PMH of ( CABG, CAD, last stent 2019, chronic systolic HF, NIDDM, HTN, HLD, and CKD3, pulmonary edema, cardiomyopathy presented to ED on 02/10/24 with sob and RODRIGUES found to have moderate size pleural effusion
followed by thoracentesis.
Plan�
PM&R�PT/OT to increase independence with ADLs, improve balance, coordination, endurance, strength, mobility, community reintegration, decreased burden of care on others and family education.�
Debility: Cont PT/OT.
Fatigue/shortness of breath-improved and normalized
-may be multifactorial - anemia, cardiomyopathy, heart failure with reduced ejection fraction and pleural effusion.
-s/p thoracentesis
Cardiomyopathy/Complete heart block- s/p ICD:
-Previous ejection fraction 30%, now improved to 55-60% on echocardiogram with mild to moderate MR and moderate TR.
-Continue Lasix 20 mg daily.
-Further GDMT has been limited by renal insufficiency
-Continue carvedilol 12.5 mg PO BID.
-Will change from amlodipine 5 mg (no benefit in CHF) to Imdur 30 mg daily as there is benefit of combination Imdur/hydralazine in CHF patients (especially in -[place] patients).Hydralazine 50mg tid
CAD s/p recent CABG:
-Residual wound dehiscence.
-Patient previously had wound VAC follow-up with CT surgery. Plavix 75mg qd, ASA 81mg qd
KELLIE on CKD 3: cont nephrology protocols
Leukocytosis/Wound: ID consulted. Has been on Zosyn 2.25mg IV q 6 hours for several days without improvement. Transition to ceftriaxone 2000 mg IV every 24 hours cultures negative to date.No history of fevers; may be reactive. (02/15) Wound culture
from superior sternal wound + for Gram negative Bacilli.
Left side neck swelling: Case discussed with CT Surgery. CT of chest recommended,Check ESR and CRP.
Hyperlipidemia: Rosuvastatin 20 mg qPM
Anemia. Received 1-2 unit of PRBCs. Ferrous sulfate 325mg po qd
DM II: Accu-Cheks, aspart 4 units sc AC, Lantus 8 units.
Subcentimeter lung nodules (LUE, L lateral and RUL): Follow up with pulm for repeated CT chest
FEN: 2000 calorie Diabetic (17) carb
Psych/insomnia: Psychology consulted.�
Pain: acetaminophen as needed. Gabapentin 300mg HS
Bowel:
Bladder: No retention concerns
GI Prophylaxis: Pantoprazole 40 mg daily
DVT Prophylaxis: mechanical and heparin 5000 units q 8 hours
Pulmonary: Incentive spirometry
Safety: Continue to reinforce assistance with all transfers.
Code Status:� Full code
Functional and Medical Goals:�Modified Independent with ADL�s, ambulation, transfers�
Discharge Destination:�Acute inpatient rehabilitation
�
Summary of recommendations: Patient with ongoing multiple comorbidities and with pending diagnostic and therapeutic treatment currently not ready for acute inpatient rehabilitation. Once medically stable she may benefit from acute inpatient
rehabilitation .
Debility: Cont PT/OT.
Fatigue/shortness of breath-improved and normalized
-may be multifactorial - anemia, cardiomyopathy, heart failure with reduced ejection fraction and pleural effusion.
-s/p thoracentesis
CAD s/p recent CABG:
-Residual wound dehiscence.
-Patient previously had wound VAC follow-up with CT surgery
Leukocytosis/Chest Wound/: ID consulted. On Ceftriaxone. Chest wound culture + for gram negative-Case discussed with CT Surgery. CT of chest recommended,Check ESR and CRP.
Pain: acetaminophen as needed. Gabapentin 300mg HS
Bowel:
Bladder: No retention concerns
GI Prophylaxis: Pantoprazole 40 mg daily
DVT Prophylaxis: mechanical and heparin 5000 units q 8 hours
Pulmonary: Incentive spirometry
Safety: Continue to reinforce assistance with all transfers.
Thank you for allowing me to care for your patient. Please contact me with any questions or concerns.
This note was dictated using a voice recognition system. Please excuse any typographical errors from fire warden. If you believe there are any discrepancies, please notify our office.

Documented by User: Fito Vaughn MD 02/16/24 21:05
Consultation - Medical
-
Referring Provider: Leonard Cruz
Chief Complaint: Debility
History of Present Illness: This is a 78 year old Female with PMH of ( CAD, last stent 2018, chronic systolic HF, NIDDM, HTN, HLD, and CKD3, pulmonary edema, cardiomyopathy) who underwent coronary artery bypass on 11/28. She was admitted to [facility] from 12/05 through 12/23, and thereafter was discharged to home. She overall was feeling better and has been doing cardiac rehab. She was readmitted in December following the acute onset of weakness. In the process of getting her to her chair
she developed dehiscence of both her sternal wound and right lower extremity graft harvest site excision. Following that admission, she was discharged to [facility] where she stayed only for a few days and then was taken home with family. While home
she was using a wound VAC.
On February 09, she presented to the ED with shortness of breath and increased dyspnea on exertion. Her Lasix was increased for about one week which she completed three days ago for noted lower extremities edema with some improvement.
she was noted to be significantly anemic with a hemoglobin of 7.3. No evidence of acute bleeding. Chest x-ray notable for moderate size right pleural effusion. She was admitted and was transfused 1 unit of PRBCs. Nephrology was consulted for a
component of acute on chronic kidney injury with a creatinine up to 2.2.. proBNP was 6720. Troponin 0.025 iron 36, percent saturation 18 TIBC 197.
Her hospital course has been significant for thoracentesis. She has been on antibiotics (Zosyn) for several days without any appreciable change in white count, and infectious disease was consulted. Purulent drainage from chest wound dressing sent
out for culture. Preliminary culture + for gram negative xi. awaiting further identification. Case discussed with CT Surgery. CT of chest recommended, and check ESR and CRP.
02/15/2024 CXR (portable): Small to moderate right pleural effusion without significant change. Cannot exclude tiny left pleural effusion. No pneumothorax noted. Pulmonary vascularity is top normal.
Past Medical History: CAD, last stent 2018, chronic systolic HF, NIDDM, HTN, HLD, CKD3, prolonged QTc, left foot pain, umbilical hernia
Procedure History: CABG x 4-(11/28), cholecystectomy
Family History: None pertinent
Social History:
Functional Level Premorbidly: Independent with all activities
Functional Level Currently: functional mobility- max assist of , ambulates 12x1 with RW with mod assist of 2, transfer-mod assist
Tobacco: Denies
Alcohol: Denies
Drug use: Denies
Lives with: family
24-hour assistance available: No
Number of floors: 1
# steps to enter: 0
# steps to second floor: 0
Potential First floor set up:yes
Driving: yes
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
�
Allergies:
Allergy/AdvReac Type Severity Reaction Status Date / Time
No Known Allergies Allergy Unverified 11/20/23 06:21
Review of Systems:
Constitutional: (x) abNormal _fatigue
Eye: (x) Normal _
Ear/Nose/Throat: (x) Normal _
Respiratory: (x) Normal _
Cardiovascular: (x) s/p cabg
Gastrointestinal: (x) Normal _
Genitourinary: (x) kellie
Musculoskeletal: (x) abNormal _ foot drop both legs since hospital
Integumentary: (x) Normal _
Neurologic: (x) Normal _
Psychiatric: (x) Normal _
Endocrine: (x) Normal _
Hematologic/Lymphatic: (x) Normal _
Allergic/Immunologic: (x) Normal _
Medications:
Active Current Visit Medication List
Category Date Time Status
Acetaminophen [Tylenol] Med 02/12/24 14:08 Active
1,000 mg PO Q6HPRN PRN
Ascorbic Acid [Vitamin C] Med 02/11/24 12:00 Active
500 mg PO DAILY@1200
Aspirin Chewable [Low Strength Aspirin] Med 02/11/24 08:00 Active
81 mg PO DAILY
Carvedilol [Coreg] Med 02/11/24 08:00 Active
12.5 mg PO BID
CefTRIAXone [Rocephin] Med 02/15/24 18:00 Active
2,000 mg IV Q24H
Clopidogrel Bisulfate [Plavix] Med 02/11/24 08:00 Active
75 mg PO DAILY
Dextrose 50%-Water [Dextrose 50% Syringe] Med 02/11/24 00:37 Active
12.5 grams IV [id number] PRN
Docusate W/Senna [Senokot-S] Med 02/11/24 11:00 Active
1 tablet PO BID
Ferrous Sulfate [Feosol] Med 02/11/24 12:00 Active
325 mg PO DAILY@1200
Flush (0.9% Sodium Chloride) [Flush (Nss)] Med 02/11/24 01:00 Active
See Dose Instructions IV PER PROTOCOL
Furosemide [Lasix] Med 02/15/24 08:00 Active
20 mg PO DAILY
Gabapentin [Neurontin] Med 02/11/24 22:00 Active
300 mg PO HS
Glucagon [GlucaGen] Med 02/11/24 00:37 Active
1 mg IM PRN PRN
Heparin Med 02/11/24 16:00 Active
5,000 units SC Q8
HydrALAZINE [Apresoline] Med 02/11/24 08:00 Active
50 mg PO TID@0800,1400,2000
ISOSORBIDE MONOnitrate ER [Imdur (Extended Release)] Med 02/16/24 08:00 Active
30 mg PO DAILY
Insulin Aspart Corrective Low [Novolog Flexpen-Low Med 02/11/24 07:30 Active
Resistance]
See Protocol SC AC
Ketorolac [Toradol] Med 02/12/24 14:09 Active
15 mg IV Q6HPRN PRN
Petrolatum/Mineral Oil [Hydrophor] Med 02/13/24 08:00 Active
See Dose Instructions TOPICAL DAILY
Rosuvastatin Calcium [Crestor] Med 02/11/24 18:00 Active
20 mg PO QPM
Sterile Water [Sterile Water For Injection] Med 02/15/24 18:00 Active
20 ml IV Q24H
Vitals:
Temp Pulse Resp BP Pulse Ox
98.7 F 110 18 170/93 100
02/16/24 08:00 02/16/24 08:00 02/16/24 08:00 02/16/24 08:00 02/16/24 08:00
Height 5 ft 8 in
Actual Weight 59.165 kg
Body Mass Index (BMI) 19.8
Physical Exam:
General Appearance/Observation: Well-developed, well-nourished female in no apparent distress.Looks tired and pale
Pain/Comfort Assessment: minimal chest
Mood/Affect: Appropriate, pleasant, tired
Integumentary/Operative Site: superior and inferior sternal incisions packed with iodoform packing and with dressing, right leg wound wrapped.
Pressure Ulcer Evaluation: absent over heels
Eyes: Conjunctiva/Lids: normal ��� Pupils: pupils equal round and reactive to light and Accommodation
Ears/Nose/Throat: oral mucosa dry,� throat clear.������������ Lips/Teeth/Gums: lips dry
Neck: left muscle tenderness with subcutaneous air.
Cardiovascular: Heart: regular, no murmur
Pulses: dorsalis pedis 1+ bilaterally
Respiratory: Respiratory Effort/Chest Expansion: normal ������� Auscultation: Clear to auscultation bilaterally
Gastrointestinal: abdomen not tender, no distension, normal abdominal bowel sounds
Genitourinary: No Jones
Extremities: Edema: bilateral ankle/feet Cyanosis: None Trophic changes: None
Neurology Exam:
Orientation: Alert, Oriented to self, Time, Place
Memory: Intact for immediate medical concerns
Comprehension: Intact
Two step command: Intact
Naming: Intact
Cranial Nerves:
CNII: Pupillary light reflex: Intact��� Visual Field: NT
CN III, IV, : Extraocular muscles: Intact
CN V: Facial Sensation at Forehead: Intact, Maxilla: Intact, Mandible: Intact
CN VII: Facial movement: Symmetric
CN VIII: Hearing: Normal
CN IX/X: Speech & swallow: hypophonia Position of Uvula: Midline
CN XI: Shoulder shrug: Symmetric
Sensory:
Light touch: Intact in bilateral upper and lower extremities
��
Reflexes:
Biceps: absent bilaterally
Brachioradialis: absent bilaterally
Triceps: absent+ bilaterally
Patellar: 0 bilaterally
Achilles: 0 bilaterally
Babinski: no response bilaterally
Isabella: Negative bilaterally
Cerebellar: Dysmetria/Ataxia: NT
Musculoskeletal: Motor: (Manual muscle scale 0-5)
Muscle SA EF WE EE FF FA HF KE DF EHL PF
Right� >3+ >3+ 5 >3+ 2+ 3+ 0 0 1
Left >3+ >3+ 5 >3+ 2+ 3+ 1 1 2
Tone: Normal in all extremities
Range of Motion: Passively within normal limits, did not fully test arms due to recent surgery
Labs:
Labs
WBC 19.5 10^3/uL (4.8-10.8) H 02/16/24 07:53
RBC 3.38 10^6/uL (4.20-5.40) L 02/16/24 07:53
Hgb 9.0 g/dL (12.0-16.0) L 02/16/24 07:53
Hct 27.4 % (37.0-47.0) L 02/16/24 07:53
MCV 81.1 fL (81.0-99.0) 02/16/24 07:53
MCH 26.6 pg (27.0-31.0) L 02/16/24 07:53
MCHC 32.8 g/dL (33.0-37.0) L 02/16/24 07:53
RDW 16.4 % (11.5-14.5) H 02/16/24 07:53
Plt Count 584 10^3/uL (130-400) H 02/16/24 07:53
MPV 8.4 fL (7.4-10.4) 02/16/24 07:53
Abs Immat Gran (auto) 0.2 10^3/uL (0-0.05) H 02/16/24 07:53
Absolute Neuts (auto) 14.3 10^3/uL (1.4-6.5) H 02/16/24 07:53
Absolute Lymphs (auto) 2.7 10^3/uL (1.2-3.4) 02/16/24 07:53
Absolute Monos (auto) 1.4 10^3/uL (0.1-0.6) H 02/16/24 07:53
Absolute Eos (auto) 0.9 10^3/uL (0-0.7) H 02/16/24 07:53
Absolute Basos (auto) 0.1 10^3/uL (0-0.2) 02/16/24 07:53
Immature Gran % 0.9 % (0-0.5) H 02/16/24 07:53
Neutrophils % 73.0 % (42.2-75.2) 02/16/24 07:53
Lymphocytes % 13.7 % (20.5-51.1) L 02/16/24 07:53
Monocytes % 7.4 % (1.7-9.3) 02/16/24 07:53
Eosinophils % 4.5 % (0-6) 02/16/24 07:53
Basophils % 0.5 % (0-2) 02/16/24 07:53
Nucleated RBC % 0 % 02/16/24 07:53
Retic Count 1.0 % (0.4-2.8) 02/16/24 07:53
Sodium 143 mmol/L (135-145) 02/15/24 05:56
Potassium 3.5 mmol/L (3.5-5.1) 02/15/24 05:56
Chloride 103 mmol/L (98-107) 02/15/24 05:56
Carbon Dioxide 27 mmol/L (22-30) 02/15/24 05:56
BUN 54 mg/dl (7-17) H 02/15/24 05:56
Creatinine 2.1 mg/dL (0.6-1.0) H 02/15/24 05:56
Estimated Creat Clear 21 ml/min 02/15/24 05:56
eGFR 23.82 02/15/24 05:56
Glucose 154 mg/dl (70-99) H 02/15/24 05:56
Calcium 9.3 mg/dl (8.4-10.2) 02/15/24 05:56
Magnesium 2.5 mg/dl (1.6-2.3) H 02/11/24 06:47
Iron 36 ug/dl (37-170) L 02/10/24 18:51
TIBC 197 ug/dl (265-497) L 02/10/24 18:51
% Saturation 18 % (20-50) L 02/10/24 18:51
Ferritin 960.0 ng/ml (11.1-264.0) H 02/10/24 18:51
Total Bilirubin 0.2 mg/dl (0.2-1.3) 02/10/24 18:51
AST 21 U/L (14-36) 02/10/24 18:51
ALT 20 U/L (0-35) 02/10/24 18:51
Alkaline Phosphatase 78 U/L (38-126) 02/10/24 18:51
Lactate Dehydrogenase 214 U/L (120-246) 02/13/24 05:50
Troponin I 0.025 ng/ml 02/10/24 18:51
Ehb-L-Qnerdtskmhx Pept 6770 pg/ml 02/10/24 18:51
Total Protein 6.7 g/dl (6.3-8.2) 02/13/24 05:50
Albumin 3.3 g/dl (3.5-5.0) L 02/10/24 18:51
Vitamin B12 > 1000 pg/ml (239-931) H 02/10/24 18:51
Folate > 20.0 ng/ml (2.76-20) H 02/10/24 18:51
Urine Color Straw 02/11/24 15:25
Urine Clarity Clear (Clear) 02/11/24 15:25
Urine pH 6.0 (5.0-9.0) 02/11/24 15:25
Ur Specific [place] 1.015 (<1.030) 02/11/24 15:25
Urine Ketones Negative (Negative) 02/11/24 15:25
Urine Occult Blood Negative (Negative) 02/11/24 15:25
Urine Nitrite Negative (Negative) 02/11/24 15:25
Urine Bilirubin Negative (Negative) 02/11/24 15:25
Urine Urobilinogen Negative (Neg - 1+) 02/11/24 15:25
Ur Leukocyte Esterase Trace (Negative) A 02/11/24 15:25
Urine RBC 0-2 /HPF (0-2) 02/11/24 15:25
Urine WBC 16-20 /HPF (0-5) A 02/11/24 15:25
Ur Squamous Epith Cells 6-10 /LPF (Few) 02/11/24 15:25
Urine Bacteria Few (Negative) A 02/11/24 15:25
Urine Creatinine 20.600 mg/dl 02/11/24 15:25
Urine Sodium 109 mmol/L (30-90) H 02/11/24 15:25
Urine Glucose Negative (Negative) 02/11/24 15:25
Urine Albumin Trace (Neg - Trace) 02/11/24 15:25
Fluid pH 7.43 02/13/24 08:10
Fluid WBC 1662 /CUMM 02/13/24 08:10
Fluid WBC Cancelled 02/13/24 08:10
Fluid Mononuclear Cell 38.2 % 02/13/24 08:10
Fluid Mononuclear Cell Cancelled 02/13/24 08:10
Fl Polymorphonucl Cell 61.8 % 02/13/24 08:10
Fl Polymorphonucl Cell Cancelled 02/13/24 08:10
Fluid Other Cells Cancelled 02/13/24 08:10
Fluid Other Cells Not Reportable 02/13/24 08:10
Fluid Diff Path Review Cancelled 02/13/24 08:10
Fluid Diff Path Review Not Reportable 02/13/24 08:10
Fluid Glucose 119 mg/dl 02/13/24 08:10
Fluid Total Protein 4.7 g/dl 02/13/24 08:10
Fluid Albumin 2.1 g/dl 02/13/24 08:10
Fluid Albumin Cancelled 02/13/24 08:10
Fluid LDH 155 U/L 02/13/24 08:10
Fluid Amylase 59 U/L 02/13/24 08:10
Fluid Triglycerides < 30 mg/dl 02/13/24 08:10
POC Glucose 177 mg/dl (70-99) H 02/15/24 21:15
Blood Type AB POS 02/14/24 11:59
Antibody Screen Negative (Negative) 02/14/24 11:59
Crossmatch IS Only See Detail 02/14/24 11:59
Diagnostic: HPI
Left shoulder pain:
There is calcification at the distal supraspinatus tendon suggesting calcific tendinitis
02/15/24: chest xray- Lines/Tubes/Devices: Anterior left chest wall pacemaker/AICD.
Small right pleural effusion, unchanged compared to recent prior studies. Small left basilar opacity, likely reflective of a tiny effusion and/or airspace consolidation/atelectasis. No pneumothorax.
Lab Results: Chest wound culture- + for Gram negative Bacilli
Assessment: 78 year old Female with PMH of ( CABG, CAD, last stent 2019, chronic systolic HF, NIDDM, HTN, HLD, and CKD3, pulmonary edema, cardiomyopathy presented to ED on 02/10/24 with sob and RODRIGUES found to have moderate size pleural effusion
followed by thoracentesis with ADL and ambulatory dysfunction.
Plan�
PM&R�PT/OT to increase independence with ADLs, improve balance, coordination, endurance, strength, mobility, community reintegration, decreased burden of care on others and family education.�
Debility: Cont PT/OT.
Fatigue/shortness of breath-improved and normalized
-may be multifactorial - anemia, cardiomyopathy, heart failure with reduced ejection fraction and pleural effusion.
-s/p thoracentesis
Cardiomyopathy/Complete heart block- s/p ICD:
-Previous ejection fraction 30%, now improved to 55-60% on echocardiogram with mild to moderate MR and moderate TR.
-Continue Lasix 20 mg daily.
-Further GDMT has been limited by renal insufficiency
-Continue carvedilol 12.5 mg PO BID.
-Will change from amlodipine 5 mg (no benefit in CHF) to Imdur 30 mg daily as there is benefit of combination Imdur/hydralazine in CHF patients (especially in -[place] patients).Hydralazine 50mg tid
Left neck pain with subcutaneous air: CAT scan ordered. Management per primary team/surgery. Case discussed with CT Surgery. CT of chest recommended,Check ESR and CRP.
CAD s/p recent CABG:
-Residual wound dehiscence.
-Patient previously had wound VAC follow-up with CT surgery. Plavix 75mg qd, ASA 81mg qd
KELLIE on CKD 3: cont nephrology protocols
Leukocytosis/Wound: ID consulted. Has been on Zosyn 2.25mg IV q 6 hours for several days without improvement. Transition to ceftriaxone 2000 mg IV every 24 hours cultures negative to date.No history of fevers; may be reactive. (02/15) Wound culture
from superior sternal wound + for Gram negative Bacilli.
Hyperlipidemia: Rosuvastatin 20 mg qPM
Anemia. Received 1-2 unit of PRBCs. Ferrous sulfate 325mg po qd
DM II: Accu-Cheks, aspart 4 units sc AC, Lantus 8 units.
Subcentimeter lung nodules (LUE, L lateral and RUL): Follow up with pulm for repeated CT chest
FEN: 2000 calorie Diabetic (17) carb
Psych/insomnia: Psychology consulted.�
Pain: acetaminophen as needed. Gabapentin 300mg HS
Bowel:
Bladder: No retention concerns
GI Prophylaxis: Pantoprazole 40 mg daily
DVT Prophylaxis: mechanical and heparin 5000 units q 8 hours
Pulmonary: Incentive spirometry
Safety: Continue to reinforce assistance with all transfers.
Code Status:� Full code
Functional and Medical Goals:�Modified Independent with ADL�s, ambulation, transfers�
Discharge Destination:�Acute inpatient rehabilitation
�
Summary of recommendations: Patient with ongoing multiple comorbidities and with pending diagnostic and therapeutic treatment currently not ready for acute inpatient rehabilitation. Once medically stable she may benefit from acute inpatient
rehabilitation .
Debility: Cont PT/OT.
Fatigue/shortness of breath-improved and normalized
-may be multifactorial - anemia, cardiomyopathy, heart failure with reduced ejection fraction and pleural effusion.
-s/p thoracentesis
CAD s/p recent CABG:
-Residual wound dehiscence.
-Patient previously had wound VAC follow-up with CT surgery
Leukocytosis/Chest Wound/: ID consulted. On Ceftriaxone. Chest wound culture + for gram negative-Case discussed with CT Surgery. CT of chest recommended,Check ESR and CRP.
Pain: acetaminophen as needed. Gabapentin 300mg HS
Bowel:
Bladder: No retention concerns
GI Prophylaxis: Pantoprazole 40 mg daily
DVT Prophylaxis: mechanical and heparin 5000 units q 8 hours
Pulmonary: Incentive spirometry
Safety: Continue to reinforce assistance with all transfers.
Thank you for allowing me to care for your patient. Please contact me with any questions or concerns.
Attending Statement:
I saw and examined the patient today. 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 I agree with the above subjective and physical exam, and plan as documented by BLANCA Curry with adjustments made as necessary.
[2024-02-16 17:19] LABS: Glucose - Point of Care 297 mg/dl (70-99)
[2024-02-16] MEDS: ROCEPHIN 2000 MG IV (17:29)
[2024-02-16] MEDS: STERILE WATER FOR INJECTION 20 ML IV (17:29)
[2024-02-16] MEDS: NOVOLOG FLEXPEN-LOW RESISTANCE 3 UNITS SC (17:30)
[2024-02-16] MEDS: CRESTOR 20 MG PO (17:34)
[2024-02-16] MEDS: NEURONTIN 300 MG PO (20:42)
[2024-02-16 21:34] LABS: Glucose - Point of Care 185 mg/dl (70-99)
--- NOTE | 2024-02-17 | PTCARENOTE ---
At change of shift, RN assessed patient's sternal wound dressing and saw gown was saturated with blood. Blood was not from chest wound but from heparin subq given during dayshift. Gauze dressing and tegaderm applied. When next heparin subq was due,
gauze dressing was saturated again. Site was still slowly actively bleeding. Contacted [employer], decided to hold 0000 dose. Patient also takes plavix and ASA daily. Contacted IV team to get quick clot. Applied quick clot with 4x4 gauze and tegaderm. Will
continue to monitor overnight.
[2024-02-17] MEDS: HEPARIN SC ×3 (00:27→09:58)
[2024-02-17 03:13] VITALS: BP 127/78
[2024-02-17 07:00] VITALS: BP 153/86
[2024-02-17 07:46] LABS: Glucose - Point of Care 143 mg/dl (70-99)
[2024-02-17 08:25] LABS: % Basophils 0.5 % (0-2); % Eosinophils 4.6 % (0-6); % Immature Granulocytes 0.8 % (0-0.5); % Lymphocytes 14.1 % (20.5-51.1); % Monocytes 7.3 % (1.7-9.3); % Neutrophils 72.7 % (42.2-75.2); Absolute Basophils 0.1 10^3/uL (0-0.2); Absolute Eosinophils 0.9 10^3/uL (0-0.7); Absolute Immature Granulocytes 0.2 10^3/uL (0-0.05); Absolute Lymphocytes 2.7 10^3/uL (1.2-3.4); Absolute Monocytes 1.4 10^3/uL (0.1-0.6); Absolute Neutrophils 13.9 10^3/uL (1.4-6.5); Hematocrit 25.2 % (37.0-47.0); Hemoglobin 8.4 g/dL (12.0-16.0); Mean Corp Hgb Conc. 33.3 g/dL (33.0-37.0); Mean Corpuscular Hgb 26.7 pg (27.0-31.0); Mean Platelet Volume 8.3 fL (7.4-10.4); Nucleated Red Blood Cells % 0 %; Platelet Count 532 10^3/uL (130-400); Red Blood Cell Count 3.15 10^6/uL (4.20-5.40); Red Cell Dist. Width 16.2 % (11.5-14.5); White Blood Cell Count 19.1 10^3/uL (4.8-10.8)
[2024-02-17] MEDS: TYLENOL 1000 MG PO ×3 (08:43→20:20)
[2024-02-17 08:48] LABS: Erythrocyte Sed Rate 82 mm/hour (0-20)
[2024-02-17] MEDS: NOVOLOG FLEXPEN-LOW RESISTANCE SC (08:51)
[2024-02-17 08:58] LABS: Blood Urea Nitrogen 62 mg/dl (7-17); Calcium 9.3 mg/dl (8.4-10.2); Carbon Dioxide 26 mmol/L (22-30); Chloride 101 mmol/L (98-107); Estimated Creatinine Clearance 19 ml/min; Glucose 138 mg/dl (70-99); Potassium 3.7 mmol/L (3.5-5.1); Sodium 142 mmol/L (135-145); eGFR 21.36
[2024-02-17] MEDS: HYDROPHOR 1 APPLIC TOPICAL (09:15)
[2024-02-17] MEDS: COREG 12.5 MG PO ×2 (09:16→20:14)
[2024-02-17] MEDS: SENOKOT-S PO ×2 (09:17→09:58)
[2024-02-17] MEDS: IMDUR (EXTENDED RELEASE) 30 MG PO (09:17)
[2024-02-17] MEDS: APRESOLINE 50 MG PO ×3 (09:17→20:14)
[2024-02-17] MEDS: LOW STRENGTH ASPIRIN 81 MG PO (09:17)
[2024-02-17] MEDS: LASIX 20 MG PO (09:17)
[2024-02-17] MEDS: PLAVIX 75 MG PO (09:17)
[2024-02-17 11:00] VITALS: BP 116/66
--- NOTE | 2024-02-17 11:26 | W.PN.NEPH.PH ---
Today's Communication / Plan
-
Follow BMP
No more NSAIDs
Assessment/Plan
-
Assessment:
CAD
KELLIE on CKD3b (1.5)
SOB
HTN
HFrEF, decompensated
Edema
Diabetes mellitus type 2
Leukocytosis
Anemia
PPM
Plan:
follow BMP, creatinine unchanged at 2.3, hopefully injury is plateauing
CXR with small righ pleural effusion
follow weights
on po lasix
on Ceftriaxone
DC Toradol as patient is in acute renal failure (done yesterday)
-
-
Date of Service: February 17, 2024
CC / HPI / ROS
-
Chief Complaint:
KELLIE
History of Present Illness:
Creatinine up to 2.3
Hemodynamically stable
hgb at 8.4
WBC down to 19
Review of Systems:
Weights lower
Nonoliguric
Labs
-
Labs:
WBC 19.1 10^3/uL (4.8-10.8) H 02/17/24 08:01
RBC 3.15 10^6/uL (4.20-5.40) L 02/17/24 08:01
Hgb 8.4 g/dL (12.0-16.0) L 02/17/24 08:01
Hct 25.2 % (37.0-47.0) L 02/17/24 08:01
Plt Count 532 10^3/uL (130-400) H 02/17/24 08:01
Sodium 142 mmol/L (135-145) 02/17/24 08:01
Potassium 3.7 mmol/L (3.5-5.1) 02/17/24 08:01
Chloride 101 mmol/L (98-107) 02/17/24 08:01
Carbon Dioxide 26 mmol/L (22-30) 02/17/24 08:01
BUN 62 mg/dl (7-17) H 02/17/24 08:01
Creatinine 2.3 mg/dL (0.6-1.0) H 02/17/24 08:01
eGFR 21.36 02/17/24 08:01
Glucose 138 mg/dl (70-99) H 02/17/24 08:01
Calcium 9.3 mg/dl (8.4-10.2) 02/17/24 08:01
Bez-X-Skdqnccuhas Pept 6770 pg/ml 02/10/24 18:51
Albumin 3.3 g/dl (3.5-5.0) L 02/10/24 18:51
Physical Exam
-
Vital Signs:
Vital Signs
Temp Pulse Resp BP Pulse Ox
98.0 F 94 16 153/86 99
02/17/24 07:00 02/17/24 07:00 02/17/24 07:00 02/17/24 07:00 02/17/24 07:00
Cardiovascular:: Regular rate and rhythm
Respiratory:: Bilateral: CTA
Lung Excursion:: Normal
Abdomen:: Nontender and Soft
Bowel Sounds:: Normal
Extremity Edema:: None: Bilateral:
--- NOTE | 2024-02-17 11:26 | W.PN.HOSP.TC ---
Today's Communication/Plan
-
Continue IV ceftriaxone
Follow-up CT thorax without contrast
Follow-up ID recommendation
Trend CBC, temperature, inflammatory markers
Assessment / Plan
Assessment / Plan
#Leukocytosis
#Exudative right pleural effusion
#Sternal wound with pansensitive Pseudomonas
-Differentials for leukocytosis include parapneumonic effusion versus infected sternal wound
-Patient had thoracentesis while here, exudative per lights criteria; culture was negative however
-Has had persistently elevated WBC that peaked at 25, downtrending to 19.1 today
-Currently on IV ceftriaxone, the dissent of her WBC count has started to plateau
-Sternal wound cultures positive for pansensitive Pseudomonas; blood cultures here were negative
-Infectious disease following; ordered ESR and CRP which were both elevated
Plan
-Continue with IV ceftriaxone empirically for now
-Follow-up CT thorax without contrast
-Trend CBC, temperature curve, inflammatory markers
#Acute on chronic normocytic anemia
-Differentials include occult bleeding, bone marrow process; unlikely hemolysis or nutritional deficiency
-She had an iron panel earlier in hospital stay that was consistent with anemia of chronic disease
-S/p 2 unit PRBC total; hemoglobin responded appropriately with hemoglobin 8.9�9.0 next draws
-Reticulocyte count 1%, anticipated being slightly higher due to her anemia, cannot r/o bone marrow component
-Discontinued chemical DVT prophylaxis, now on compression stocking
#Acute on chronic HFrecEF
-History of HFrEF with Takotsubo cardiomyopathy; status post IV diuretic regimen here
-She did have TTE performed yesterday, 02/13/2024, that showed recovery of systolic function (EF 55%)
-Was transition to oral Lasix however renal function seems to be worsening now
-Continue GDMT with carvedilol, hydralazine/Imdur
-Plan to speak with nephrology/cardiology about volume status
#Left shoulder calcific tendinitis
-Has complained of left shoulder pain since being repositioned a few days ago
-X-ray without any acute findings, did show calcific tendinitis
-Supportive therapy with as needed analgesia
#KELLIE on CKD 3B
-Secondary to decompensated heart failure and hypervolemia, cardiorenal syndrome type 1
-Baseline creatinine 1.5; presented with creatinine near 2.2 however back near baseline
-Suspect that her new creatinine baseline is roughly 2.0
-Nephrology following
#CAD s/p PCI, CABG (2023)
-Home medications include beta-juan, aspirin, Plavix, high intensity
-Does have significant systolic dysfunction with EF 35%; Recovered EF per TTE here
-No current signs of ACS
#IDDM
-Most recent A1c 6.3%; per family blood sugar has been on the lower side more recently
-Home Lantus dose held; currently on ISS with Accu-Cheks only
#Essential hypertension
-Home medications include carvedilol, amlodipine, hydralazine
-No known hypertensive systemic
-Home meds continued with hold parameters
#Recent Sternal and Right LE Graft Donor Site Wound Dehiscence
-Wound care following
#H/O Complete Heart Block s/p Pacemaker/ICD
DVT proph: HSQ
Diet: 2 g sodium restricted
Code Status: Full Code
Disposition: [facility] when medically stable
Anticipated Discharge: 24 - 48 hours
Subjective/Interval History
-
Date of Service: February 17, 2024
Seen and examined at the bedside. No acute events overnight. AFVSS this morning.
Does have fairly significant bleeding after heparin injections. Will DC and switch to compression stockings. Complains of some dark spots on the posterior dorsal surface of the tongue, seems to be Ensure (chocolate) though will start Magic
mouthwash empirically.
Denies any acute complaints including chest pain, fevers or chills, dyspnea, GI bleeding or other gastrointestinal issues, urinary issues, paresthesias or weakness.
Objective Data
-
Labs:
Laboratory Results
02/17/24
08:01
WBC 19.1 H
Hgb 8.4 L
Hct 25.2 L
Plt Count 532 H
Sodium 142
Potassium 3.7
Chloride 101
Carbon Dioxide 26
BUN 62 H
Creatinine 2.3 H
Glucose 138 H
Calcium 9.3
Vital Signs:
Vital Signs
Temp Pulse Resp BP Pulse Ox
98.0 F 94 16 153/86 99
02/17/24 07:00 02/17/24 07:00 02/17/24 07:00 02/17/24 07:00 02/17/24 07:00
I&O
02/16/24 02/17/24 02/18/24
06:59 06:59 06:59
Intake Total 820 / 820 480 / 480
Output Total 200 / 200
Balance 820 / 820 280 / 280
Review of Systems
-
History Source: Patient
All other systems: Reviewed and negative
Physical Exam
-
General: No Apparent Distress, Comfortable and Appears Chronically Ill
HEENT: Normocephalic, Atraumatic, Moist Mucous Membranes and Anicteric
Respiratory: Non Labored Respirations and Decreased Breath Sounds (Right base); Negative Wheezes, Rales, Rhonchi or Accessory Resp Muscle Use
Cardiac: Regular Rhythm and S1/S2; Negative Murmur, Rub or Gallop
GI: Soft, Nontender, Nondistended and Normal Bowel Sounds
Musculoskeletal: No Clubbing, No Cyanosis and No Edema
Skin: Warm, Dry and Other (No significant erythema or purulence at site of sternal wound); Negative Rash
Neuro: AO x 3, Nonfocal/Grossly Intact and Central Nerve's Intact
Psych: Calm
Data Reviewed
-
Labs: Labs Reviewed by me, Discussed with Patient and Discussed with Family
[2024-02-17 11:51] LABS: Glucose - Point of Care 238 mg/dl (70-99)
[2024-02-17] MEDS: STERILE WATER FOR INJECTION 10 ML IV ×2 (12:31→21:26)
[2024-02-17] MEDS: VITAMIN C 500 MG PO (12:31)
[2024-02-17] MEDS: FEOSOL 325 MG PO (12:31)
[2024-02-17] MEDS: NOVOLOG FLEXPEN-LOW RESISTANCE 2 UNITS SC (12:32)
[2024-02-17] MEDS: MERREM 500 MG IV ×2 (12:32→21:26)
[2024-02-17] MEDS: MYCOSTATIN ORAL SUSPENSION 5 ML PO ×3 (12:51→21:27)
[2024-02-17] MEDS: LIDOCAINE 4% PATCH 1 PATCH TOPICAL (12:51)
--- NOTE | 2024-02-17 13:09 | W.PN.ID1 ---
Date of Service
Date of Service: February 17, 2024
Today's Communication
await CT read
meropenem
Assessment / Plan
Leukocytosis
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
Pleural effusion
- appears to be exudative given total protein, LDH and triglycerides
- cultures negative to date.
Anemia
KELLIE on CKD
HTN
Dyslipidemia
CAD; Hx CABG 10/2023
DM
CKD
Recommendations:
Continue ceftriaxone.
Wound cultures obtained yesterday revealed Pseudomonas
CT of chest pending
ESR and crp elevated
QTc 504
Continue to monitor white count and temperature curve.
Start meropenem stop ceftriaxone, prefer not to due cefepime with KELLIE, QTc limits quinolone use
Further recommendations as additional data is returned.
����������������������������������������������������������
Chief Complaint
-: Leukocytosis
Subjective / Review of Systems
afebrile
bleeding noted overnight from heparin injection site
complaining of L shoulder pain
Vital Signs / Physical Exam
Vital Signs
Vital Signs
Temp Pulse Resp BP Pulse Ox
97.5 F 92 20 116/66 95
02/17/24 11:00 02/17/24 11:00 02/17/24 11:00 02/17/24 11:00 02/17/24 11:00
Physical Exam
Constitutional: No Acute Distress and Chronically Ill
Cardiovascular: Regular Rate and S1/S2; Negative Murmur or Rub
Pulmonary: Clear and Symmetric; Negative Wheezes or Rales
Gastrointestinal: Soft, Non Tender, Non Distended and Normal Bowel Sounds
Musculoskeletal: Other (questionable tednerness over the L SC joint, no bernardo swelling or erythmea; marked tenderness over the L shoulder)
Skin: Warm and Dry; Negative Rash or Jaundice
Wound: Other (dressing clean, dry, intact)
Objective Data
Lab Data
Lab Results
02/17/24 08:01
02/17/24 08:01
ESR 82 mm/hour (0-20) H 02/17/24 08:01
Estimated Creat Clear 19 ml/min 02/17/24 08:01
Total Bilirubin 0.2 mg/dl (0.2-1.3) 02/10/24 18:51
AST 21 U/L (14-36) 02/10/24 18:51
ALT 20 U/L (0-35) 02/10/24 18:51
Alkaline Phosphatase 78 U/L (38-126) 02/10/24 18:51
C-Reactive Protein 224.40 mg/L (0.0-10.00) H 02/17/24 08:01
Most recent labs reviewed.
Micro Results:
02/15/24 16:43 Wound Culture - Final
Chest - Unspecified Pseudomonas aeruginosa
Gram Stain - Final
02/11/24 12:57 Blood Culture - Final
Blood/Venous No Growth - Final Report
02/13/24 08:10 Body Fluid Culture - Final
Pleural Fluid No Growth After 72 Hours
Gram Stain - Final
Imaging:
02/15/2024 CXR (portable): Small to moderate right pleural effusion without significant change. Cannot exclude tiny left pleural effusion. No pneumothorax noted. Pulmonary vascularity is top normal. Please see full dictation for additional
detail. Film personally viewed.
[2024-02-17 15:00] VITALS: BP 120/64
[2024-02-17 16:46] LABS: Glucose - Point of Care 264 mg/dl (70-99)
[2024-02-17] MEDS: NOVOLOG FLEXPEN-LOW RESISTANCE 3 UNITS SC (17:19)
[2024-02-17] MEDS: CRESTOR 20 MG PO (17:19)
[2024-02-17] MEDS: ULTRAM 12.5 MG PO (17:30)
[2024-02-17 19:00] VITALS: BP 141/78
[2024-02-17] MEDS: SENOKOT-S 1 TABLET PO (20:13)
[2024-02-17] MEDS: NEURONTIN 300 MG PO (21:27)
[2024-02-17 21:30] LABS: Glucose - Point of Care 221 mg/dl (70-99)
[2024-02-17 23:00] VITALS: BP 127/65
[2024-02-18 03:00] VITALS: BP 141/75
[2024-02-18 06:14] VITALS: BMI 19.5
[2024-02-18 06:59] LABS: % Basophils 0.4 % (0-2); % Eosinophils 4.1 % (0-6); % Immature Granulocytes 0.9 % (0-0.5); % Lymphocytes 15.3 % (20.5-51.1); % Monocytes 8.4 % (1.7-9.3); % Neutrophils 70.9 % (42.2-75.2); Absolute Basophils 0.1 10^3/uL (0-0.2); Absolute Eosinophils 0.7 10^3/uL (0-0.7); Absolute Immature Granulocytes 0.2 10^3/uL (0-0.05); Absolute Lymphocytes 2.7 10^3/uL (1.2-3.4); Absolute Monocytes 1.5 10^3/uL (0.1-0.6); Absolute Neutrophils 12.3 10^3/uL (1.4-6.5); Hematocrit 25.5 % (37.0-47.0); Hemoglobin 8.4 g/dL (12.0-16.0); Mean Corp Hgb Conc. 32.9 g/dL (33.0-37.0); Mean Corpuscular Hgb 26.3 pg (27.0-31.0); Mean Corpuscular Volume 79.9 fL (81.0-99.0); Mean Platelet Volume 8.3 fL (7.4-10.4); Nucleated Red Blood Cells % 0 %; Platelet Count 547 10^3/uL (130-400); Red Blood Cell Count 3.19 10^6/uL (4.20-5.40); Red Cell Dist. Width 16.4 % (11.5-14.5); White Blood Cell Count 17.3 10^3/uL (4.8-10.8)
[2024-02-18 07:00] VITALS: BP 154/87
[2024-02-18 07:30] LABS: Blood Urea Nitrogen 64 mg/dl (7-17); Calcium 9.3 mg/dl (8.4-10.2); Carbon Dioxide 26 mmol/L (22-30); Chloride 101 mmol/L (98-107); Estimated Creatinine Clearance 18 ml/min; Glucose 138 mg/dl (70-99); Magnesium 2.2 mg/dl (1.6-2.3); Potassium 3.8 mmol/L (3.5-5.1); Sodium 143 mmol/L (135-145); eGFR 20.29
[2024-02-18 07:39] LABS: Erythrocyte Sed Rate > 145 mm/hour (0-20)
[2024-02-18 08:36] LABS: Glucose - Point of Care 115 mg/dl (70-99)
[2024-02-18] MEDS: NOVOLOG FLEXPEN-LOW RESISTANCE SC (09:28)
[2024-02-18] MEDS: LASIX 20 MG PO (09:29)
[2024-02-18] MEDS: COREG 12.5 MG PO ×2 (09:29→20:17)
[2024-02-18] MEDS: PLAVIX 75 MG PO (09:29)
[2024-02-18] MEDS: IMDUR (EXTENDED RELEASE) 30 MG PO (09:29)
[2024-02-18] MEDS: APRESOLINE 50 MG PO (09:29)
[2024-02-18] MEDS: SENOKOT-S 1 TABLET PO (09:29)
[2024-02-18] MEDS: MYCOSTATIN ORAL SUSPENSION 5 ML PO ×4 (09:30→21:56)
[2024-02-18] MEDS: LIDOCAINE 4% PATCH 1 PATCH TOPICAL (09:30)
[2024-02-18] MEDS: VISBIOME 1 CAP PO (09:30)
[2024-02-18] MEDS: LOW STRENGTH ASPIRIN 81 MG PO (09:30)
[2024-02-18] MEDS: TYLENOL 1000 MG PO ×2 (09:30→18:18)
[2024-02-18] MEDS: STERILE WATER FOR INJECTION 10 ML IV ×2 (09:31→21:56)
[2024-02-18] MEDS: HYDROPHOR 1 APPLIC TOPICAL (09:31)
[2024-02-18] MEDS: MERREM 500 MG IV ×2 (09:31→21:56)
[2024-02-18] MEDS: ULTRAM 12.5 MG PO ×2 (09:32→21:57)
--- NOTE | 2024-02-18 09:59 | W.PN.HOSP.TC ---
Today's Communication/Plan
-
Continue IV meropenem
Follow CBC/temperature/inflammatory markers
Consider MRI
Assessment / Plan
Assessment / Plan
#Leukocytosis
#Exudative right pleural effusion
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
-Differentials for leukocytosis include parapneumonic effusion versus infected sternal wound
-Patient had thoracentesis while here, exudative per lights criteria; culture was negative however
-Has had persistently elevated WBC that peaked at 25 and has been downtrending on antibiotics
-Sternal wound cultures positive for pansensitive Pseudomonas; blood cultures here were negative
-Infectious disease following; ordered ESR and CRP which were both elevated; transition antibiotics to meropenem
Plan
-Continue with IV meropenem
-Trend CBC, temperature curve, inflammatory markers
-Consider MRI of the sternum to further assess for osteo
-follow-up ID recs
#Acute on chronic normocytic anemia
-Differentials include occult bleeding, bone marrow process; unlikely hemolysis or nutritional deficiency
-She had an iron panel earlier in hospital stay that was consistent with anemia of chronic disease
-S/p 2 unit PRBC total; hemoglobin responded appropriately with hemoglobin 8.9�9.0 next draws
-Reticulocyte count 1%, anticipated being slightly higher due to her anemia, cannot r/o bone marrow component
-Discontinued chemical DVT prophylaxis, now on compression stocking
#Acute on chronic HFrecEF
-History of HFrEF with Takotsubo cardiomyopathy; status post IV diuretic regimen here
-She did have TTE performed yesterday, 02/13/2024, that showed recovery of systolic function (EF 55%)
-Was transition to oral Lasix however renal function seems to be worsening now
-Continue GDMT with carvedilol, hydralazine/Imdur
-Plan to speak with nephrology/cardiology about volume status
#Left shoulder calcific tendinitis
-Has complained of left shoulder pain since being repositioned a few days ago
-X-ray without any acute findings, did show calcific tendinitis
-Supportive therapy with as needed analgesia
#KELLIE on CKD 3B
-Secondary to decompensated heart failure and hypervolemia, cardiorenal syndrome type 1
-Baseline creatinine 1.5; presented with creatinine near 2.2 however back near baseline
-Suspect that her new creatinine baseline is roughly 2.0
-Nephrology following
#CAD s/p PCI, CABG (2023)
-Home medications include beta-juan, aspirin, Plavix, high intensity
-Does have significant systolic dysfunction with EF 35%; Recovered EF per TTE here
-No current signs of ACS
#IDDM
-Most recent A1c 6.3%; per family blood sugar has been on the lower side more recently
-Home Lantus dose held; currently on ISS with Accu-Cheks only
#Essential hypertension
-Home medications include carvedilol, amlodipine, hydralazine
-No known hypertensive systemic
-Home meds continued with hold parameters
#Recent Sternal and Right LE Graft Donor Site Wound Dehiscence
-Wound care following
-See above for more detail
#H/O Complete Heart Block s/p Pacemaker/ICD
DVT proph: HSQ
Diet: 2 g sodium restricted
Code Status: Full Code
Disposition: [facility] when medically stable
Anticipated Discharge: > 48 hours
Subjective/Interval History
-
Date of Service: February 18, 2024
Seen and examined at bedside. No acute events reported overnight. AFVSS this morning.
White cell count downtrending since transition to meropenem. Renal function relatively stable. Swelling to left supraclavicular region seems slightly improved
She complains of some shoulder pain, though denies chest pain, shortness of breath, fevers or chills, GI upset, urinary issues, bleeding or bruising, paresthesias or weakness.
Objective Data
-
Labs:
Laboratory Results
02/18/24 02/18/24
06:24 06:25
WBC 17.3 H
Hgb 8.4 L
Hct 25.5 L
Plt Count 547 H
Sodium 143
Potassium 3.8
Chloride 101
Carbon Dioxide 26
BUN 64 H
Creatinine 2.4 H
Glucose 138 H
Calcium 9.3
Vital Signs:
Vital Signs
Temp Pulse Resp BP Pulse Ox
98.0 F 96 17 154/87 96
02/18/24 07:00 02/18/24 07:00 02/18/24 07:00 02/18/24 07:00 02/18/24 07:00
I&O
02/17/24 02/18/24 02/19/24
06:59 06:59 06:59
Intake Total 480 / 480 1020 / 1020
Output Total 200 / 200
Balance 280 / 280 1020 / 1020
Review of Systems
-
History Source: Patient
All other systems: Reviewed and negative
Physical Exam
-
General: No Apparent Distress, Comfortable and Appears Chronically Ill
HEENT: Normocephalic, Atraumatic, Moist Mucous Membranes and Other (Left supraclavicular swelling, no fluctuance or purulence)
Respiratory: Non Labored Respirations and Decreased Breath Sounds (Right lung base); Negative Wheezes, Rales or Accessory Resp Muscle Use
Cardiac: Regular Rhythm and S1/S2; Negative Murmur, Rub, JVD or Gallop
GI: Soft, Nontender, Nondistended and Normal Bowel Sounds
Musculoskeletal: No Clubbing, No Cyanosis and No Edema
Skin: Warm, Dry and Other (No significant erythema or purulence to sternal wound); Negative Rash
Neuro: AO x 3, Nonfocal/Grossly Intact and Central Nerve's Intact
Psych: Calm
Data Reviewed
-
Labs: Labs Reviewed by me, Discussed with Patient and Discussed with Family
[2024-02-18 11:00] VITALS: BP 107/57
[2024-02-18 11:49] LABS: Glucose - Point of Care 205 mg/dl (70-99)
[2024-02-18] MEDS: FEOSOL 325 MG PO (12:47)
[2024-02-18] MEDS: VITAMIN C 500 MG PO (12:47)
[2024-02-18] MEDS: NOVOLOG FLEXPEN-LOW RESISTANCE 2 UNITS SC ×2 (12:48→18:19)
[2024-02-18] MEDS: APRESOLINE PO ×2 (14:25→20:16)
--- NOTE | 2024-02-18 14:34 | W.PN.NEPH.PH ---
Today's Communication / Plan
-
Observe
Assessment/Plan
-
Assessment:
CAD
Sternal wound
KELLIE on CKD3b (1.5)
SOB
HTN
HFrEF, decompensated
Edema
Diabetes mellitus type 2
Leukocytosis
Anemia
PPM
Plan:
follow BMP, creatinine unchanged at 2.4
CXR with small right pleural effusion
follow weights
on 20mg po lasix
on meropenem for sternal wound
DC'd Toradol as patient is in acute renal failure (done 02/15)
-
-
Date of Service: February 18, 2024
CC / HPI / ROS
-
Chief Complaint:
KELLIE
History of Present Illness:
Creatinine up to 2.4
Hemodynamically stable
On meropenem for sternal wound
Review of Systems:
Weights lower
Subjectively nonoliguric
Sternal wound
no Fevers
Labs
-
Labs:
WBC 17.3 10^3/uL (4.8-10.8) H 02/18/24 06:25
RBC 3.19 10^6/uL (4.20-5.40) L 02/18/24 06:25
Hgb 8.4 g/dL (12.0-16.0) L 02/18/24 06:25
Hct 25.5 % (37.0-47.0) L 02/18/24 06:25
Plt Count 547 10^3/uL (130-400) H 02/18/24 06:25
Sodium 143 mmol/L (135-145) 02/18/24 06:24
Potassium 3.8 mmol/L (3.5-5.1) 02/18/24 06:24
Chloride 101 mmol/L (98-107) 02/18/24 06:24
Carbon Dioxide 26 mmol/L (22-30) 02/18/24 06:24
BUN 64 mg/dl (7-17) H 02/18/24 06:24
Creatinine 2.4 mg/dL (0.6-1.0) H 02/18/24 06:24
eGFR 20.29 02/18/24 06:24
Glucose 138 mg/dl (70-99) H 02/18/24 06:24
Calcium 9.3 mg/dl (8.4-10.2) 02/18/24 06:24
Jhp-X-Kaiprgimshf Pept 6770 pg/ml 02/10/24 18:51
Albumin 3.3 g/dl (3.5-5.0) L 02/10/24 18:51
Physical Exam
-
Vital Signs:
Vital Signs
Temp Pulse Resp BP Pulse Ox
98.6 F 95 16 107/57 95
02/18/24 11:00 02/18/24 11:00 02/18/24 11:00 02/18/24 11:00 02/18/24 11:00
Cardiovascular:: Regular rate and rhythm
Respiratory:: Bilateral: CTA
Lung Excursion:: Normal
Abdomen:: Nontender and Soft
Bowel Sounds:: Normal
Extremity Edema:: None: Bilateral:
[2024-02-18 15:00] VITALS: BP 110/68
--- NOTE | 2024-02-18 15:32 | W.PN.ID1 ---
Date of Service
Date of Service: February 18, 2024
Today's Communication
c/w meropenem
Assessment / Plan
Leukocytosis
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
Pleural effusion
- appears to be exudative given total protein, LDH and triglycerides
- cultures negative to date.
Anemia
KELLIE on CKD
HTN
Dyslipidemia
CAD; Hx CABG 10/2023
DM
CKD
Recommendations:
CT reviewed - probable cellulitis around the xyphoid process, RLL airspace consolidation and moderate effusion
s/p thoracentesis of the R pleural effusion earlier this visit, not consistent with empyema
MRI sternum being considered
Wound cultures obtained yesterday revealed Pseudomonas
ESR and crp elevated
QTc 504 - recheck in the AM
Continue to monitor white count and temperature curve.
c/w meropenem, prefer not to due cefepime with KELLIE, QTc limits quinolone use
Further recommendations as additional data is returned.
����������������������������������������������������������
Chief Complaint
-: Leukocytosis
Subjective / Review of Systems
afebrile
bp stable
no events overnight
Vital Signs / Physical Exam
Vital Signs
Vital Signs
Temp Pulse Resp BP Pulse Ox
98.6 F 95 16 107/57 95
02/18/24 11:00 02/18/24 11:00 02/18/24 11:00 02/18/24 11:00 02/18/24 11:00
Physical Exam
Constitutional: No Acute Distress and Chronically Ill
Cardiovascular: Regular Rate and S1/S2; Negative Murmur or Rub
Pulmonary: Clear and Symmetric; Negative Wheezes or Rales
Gastrointestinal: Soft, Non Tender, Non Distended and Normal Bowel Sounds
Skin: Warm and Dry; Negative Rash or Jaundice
Objective Data
Lab Data
Lab Results
02/18/24 06:25
02/18/24 06:24
ESR > 145 mm/hour (0-20) H 02/18/24 06:25
Estimated Creat Clear 18 ml/min 02/18/24 06:24
Total Bilirubin 0.2 mg/dl (0.2-1.3) 02/10/24 18:51
AST 21 U/L (14-36) 02/10/24 18:51
ALT 20 U/L (0-35) 02/10/24 18:51
Alkaline Phosphatase 78 U/L (38-126) 02/10/24 18:51
C-Reactive Protein 220.50 mg/L (0.0-10.00) H 02/18/24 06:24
Most recent labs reviewed.
CT Scan: Image Reviewed and Report Reviewed (02/16: sternal wound and cellulitis, moderate R pleural effusion and large RLL consolidation)
Micro Results:
02/15/24 16:43 Wound Culture - Final
Chest - Unspecified Pseudomonas aeruginosa
Gram Stain - Final
02/11/24 12:57 Blood Culture - Final
Blood/Venous No Growth - Final Report
02/13/24 08:10 Body Fluid Culture - Final
Pleural Fluid No Growth After 72 Hours
Gram Stain - Final
Imaging:
02/15/2024 CXR (portable): Small to moderate right pleural effusion without significant change. Cannot exclude tiny left pleural effusion. No pneumothorax noted. Pulmonary vascularity is top normal. Please see full dictation for additional
detail. Film personally viewed.
[2024-02-18 16:24] LABS: Glucose - Point of Care 210 mg/dl (70-99)
[2024-02-18] MEDS: CRESTOR 20 MG PO (18:20)
[2024-02-18] MEDS: SENOKOT-S PO ×2 (20:17→20:19)
[2024-02-18 21:08] LABS: Glucose - Point of Care 232 mg/dl (70-99)
[2024-02-18] MEDS: NEURONTIN 300 MG PO (21:56)
[2024-02-18 23:00] VITALS: BP 131/68
[2024-02-19] VITALS (7 sets, daily range): BP systolic 100–135; BP diastolic 66–79; PULSE 87; O2SAT 93; BMI 20.3
[2024-02-19] MEDS: TYLENOL 1000 MG PO ×4 (01:00→20:48)
[2024-02-19 07:24] LABS: % Basophils 0.4 % (0-2); % Eosinophils 4.6 % (0-6); % Lymphocytes 16.4 % (20.5-51.1); % Monocytes 10.4 % (1.7-9.3); % Neutrophils 67.2 % (42.2-75.2); Absolute Basophils 0.1 10^3/uL (0-0.2); Absolute Eosinophils 0.8 10^3/uL (0-0.7); Absolute Immature Granulocytes 0.2 10^3/uL (0-0.05); Absolute Lymphocytes 2.7 10^3/uL (1.2-3.4); Absolute Monocytes 1.7 10^3/uL (0.1-0.6); Absolute Neutrophils 11.2 10^3/uL (1.4-6.5); Hematocrit 23.6 % (37.0-47.0); Hemoglobin 7.5 g/dL (12.0-16.0); Mean Corp Hgb Conc. 31.8 g/dL (33.0-37.0); Mean Corpuscular Hgb 26.3 pg (27.0-31.0); Mean Corpuscular Volume 82.8 fL (81.0-99.0); Mean Platelet Volume 8.5 fL (7.4-10.4); Nucleated Red Blood Cells % 0 %; Platelet Count 522 10^3/uL (130-400); Red Blood Cell Count 2.85 10^6/uL (4.20-5.40); Red Cell Dist. Width 16.5 % (11.5-14.5); White Blood Cell Count 16.7 10^3/uL (4.8-10.8)
[2024-02-19 07:36] LABS: Glucose - Point of Care 169 mg/dl (70-99)
[2024-02-19 07:49] LABS: Blood Urea Nitrogen 68 mg/dl (7-17); Calcium 9.2 mg/dl (8.4-10.2); Carbon Dioxide 28 mmol/L (22-30); Chloride 98 mmol/L (98-107); Estimated Creatinine Clearance 17 ml/min; Glucose 164 mg/dl (70-99); Potassium 3.8 mmol/L (3.5-5.1); Sodium 140 mmol/L (135-145); eGFR 18.44
[2024-02-19 08:15] LABS: Erythrocyte Sed Rate > 145 mm/hour (0-20)
[2024-02-19] MEDS: COREG 12.5 MG PO ×2 (08:39→20:48)
[2024-02-19] MEDS: APRESOLINE 50 MG PO ×2 (08:39→20:48)
[2024-02-19] MEDS: LASIX 20 MG PO (08:40)
[2024-02-19] MEDS: VISBIOME 1 CAP PO (08:40)
[2024-02-19] MEDS: SENOKOT-S 1 TABLET PO ×2 (08:40→20:48)
[2024-02-19] MEDS: LOW STRENGTH ASPIRIN 81 MG PO (08:40)
[2024-02-19] MEDS: IMDUR (EXTENDED RELEASE) 30 MG PO (08:40)
[2024-02-19] MEDS: PLAVIX 75 MG PO (08:40)
[2024-02-19] MEDS: LIDOCAINE 4% PATCH TOPICAL ×2 (08:41→09:12)
[2024-02-19] MEDS: MYCOSTATIN ORAL SUSPENSION PO ×2 (08:41→11:59)
[2024-02-19] MEDS: NOVOLOG FLEXPEN-LOW RESISTANCE 1 UNITS SC (08:42)
--- NOTE | 2024-02-19 09:07 | W.PN.HOSP.TC ---
Today's Communication/Plan
-
see bold
Assessment / Plan
Assessment / Plan
#Leukocytosis
#Exudative right pleural effusion
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
-Differentials for leukocytosis include parapneumonic effusion versus infected sternal wound
-Patient had thoracentesis while here, exudative per lights criteria; culture was negative however
-Has had persistently elevated WBC that peaked at 25 and has been downtrending on antibiotics
-Sternal wound cultures positive for pansensitive Pseudomonas; blood cultures here were negative
-CRP/ESR elevated, ID recommends 6 weeks of IV antibiotics for suspected sternal osteomyelitis
#KELLIE on CKD 3B
-Secondary to decompensated heart failure and hypervolemia, cardiorenal syndrome type 1
-Baseline creatinine 1.5; presented with creatinine near 2.2 however back near baseline
-Suspect that her new creatinine baseline is roughly 2.0
-Appreciate nephrology input, follow-up on renal ultrasound
#Acute on chronic HFrecEF
-History of HFrEF with Takotsubo cardiomyopathy; status post IV diuretic regimen here
-She did have TTE performed yesterday, 02/13/2024, that showed recovery of systolic function (EF 55%)
-Status post IV Lasix, currently on Lasix 20 mg p.o. daily
-Continue GDMT with carvedilol, hydralazine/Imdur
-Last seen by cardiology 02/14
#Edema of left sternoclavicular area
-This is in the area of the pacemaker leads, asked cardiology to evaluate
-Check ultrasound for completeness sake
#Left shoulder calcific tendinitis
-Has complained of left shoulder pain since being repositioned a few days ago
-X-ray without any acute findings, did show calcific tendinitis
-IV Toradol discontinued due to KELLIE, started on prednisone 40 mg p.o. daily 02/18�plan for 5-day burst course
-Continue tramadol as needed
#CAD s/p PCI, CABG (2023)
-Home medications include beta-juan, aspirin, Plavix, high intensity
-Does have significant systolic dysfunction with EF 35%; Recovered EF per TTE here
-No current signs of ACS
#Acute on chronic normocytic anemia
-Differentials include occult bleeding, bone marrow process; unlikely hemolysis or nutritional deficiency
-She had an iron panel earlier in hospital stay that was consistent with anemia of chronic disease
-S/p 2 unit PRBC total; hemoglobin responded appropriately with hemoglobin 8.9�9.0 next draws
-Reticulocyte count 1%, anticipated being slightly higher due to her anemia, cannot r/o bone marrow component
-Discontinued chemical DVT prophylaxis, now on compression stocking
#IDDM
-Most recent A1c 6.3%; per family blood sugar has been on the lower side more recently
-Resume homd Lantus dose; currently on ISS with Accu-Cheks only
#Essential hypertension
-Home medications include carvedilol, amlodipine, hydralazine
-No known hypertensive systemic
-Home meds continued with hold parameters
#Recent Sternal and Right LE Graft Donor Site Wound Dehiscence
-Wound care following
-See above for more detail
#H/O Complete Heart Block s/p Pacemaker/ICD
DVT proph: HSQ
Code Status: Full Code
Disposition: [facility] when medically stable
Updated daughter on phone 02/18
Total time spent to see the patient on the floor, examine the patient, review data and lab results, discuss treatment plan with patient, nursing staff around 58 minutes.
Physical Exam
General: Appears debilitated, no acute distress
HEENT: Normocephalic, Atraumatic, EOMI, MMM
Edema/fullness of left supraclavicular area
Respiratory: Bibasilar crackles
Chest wall: Sternal wound dressed
Cardiac: Normal S1/S2, Regular Rate and Rhythm
GI: Soft, Nontender, Nondistended, Normal Bowel Sounds
Extremities: No Clubbing, Cyanosis
Musculoskeletal: Severe weakness of left shoulder with pain
Psych: Calm, Cooperative
Anticipated Discharge: > 48 hours
Subjective/Interval History
-
Date of Service: February 19, 2024
Patient complains of left shoulder pain. Daughter and patient states that her left shoulder started hurting about a week ago in the hospital, daughter suspects she was moved a certain way. No fever, no vomiting.
Objective Data
-
Labs:
Laboratory Results
02/19/24
06:32
WBC 16.7 H
Hgb 7.5 L
Hct 23.6 L
Plt Count 522 H
Sodium 140
Potassium 3.8
Chloride 98
Carbon Dioxide 28
BUN 68 H
Creatinine 2.6 H
Glucose 164 H
Calcium 9.2
Vital Signs:
Vital Signs
Temp Pulse Resp BP Pulse Ox
97.9 F 87 17 135/79 99
02/19/24 07:41 02/19/24 07:41 02/19/24 07:41 02/19/24 07:41 02/19/24 07:41
I&O
02/18/24 02/19/24 02/20/24
06:59 06:59 06:59
Intake Total 1020 / 1020 1170 / 1170
Balance 1020 / 1020 1170 / 1170
--- NOTE | 2024-02-19 09:49 | W.PN.ID1 ---
Addendum entered and electronically signed by Matt Devine, 02/19/24 14:24:
I personally saw, evaluated and examined the patient. I reviewed the resident�s note and agree with findings and plan as documented in the resident�s note.
Continue meropenem in treatment of suspected sternal osteomyelitis. Will need 6 week course.
Monitor WBC / temps.
Original Note:
Date of Service
Date of Service: February 19, 2024
Today's Communication
Continue Meropenem
Monitor QTc interval
Assessment / Plan
Impression/Assessment:
Leukocytosis
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
Pleural effusion
- appears to be exudative given total protein, LDH and triglycerides
- cultures negative to date.
Anemia
KELLIE on CKD
HTN
Dyslipidemia
CAD; Hx CABG 10/2023
DM
CKD
Recommendations:
CT chest 02/16: Moderate soft tissue edema anterior and posterior to the sternum, No CT evidence for wire fracture or sternal dehiscence, enlargement of a moderate right pleural effusion, RLL airspace consolidation
U/S thyroid today
Wound cultures 02/14: Pseudomonas
ESR and crp elevated
QTc: 502 today, recheck again in AM.
Continue to monitor white count and temperature curve.
Afebrile today and WBC downtrending
Continue Meropenem Day #3
Chief Complaint
-: Leukocytosis
Subjective / Review of Systems
Patient states that she feel continues to feel pain on her left side of neck. She seems very fatigued.
Review of Systems: No Fever, No Chills, No Headache, No Chest Pain, No Palpitations and No Abdominal Pain
Vital Signs / Physical Exam
Vital Signs
Vital Signs
Temp Pulse Resp BP Pulse Ox
97.9 F 87 17 135/79 99
02/19/24 07:41 02/19/24 07:41 02/19/24 07:41 02/19/24 07:41 02/19/24 07:41
Physical Exam
Constitutional: No Acute Distress
Head: Normocephalic
Eyes: Pupils Equal
Cardiovascular: Regular Rate and S1/S2
Pulmonary: Clear
Gastrointestinal: Soft, Non Tender and Non Distended
Skin: Warm, Dry and Other (mild puffiness on L side neck)
Neurological: Awake, Alert and Oriented
Objective Data
Lab Data
Lab Results
02/19/24 06:32
02/19/24 06:32
ESR > 145 mm/hour (0-20) H 02/19/24 06:32
Estimated Creat Clear 17 ml/min 02/19/24 06:32
Total Bilirubin 0.2 mg/dl (0.2-1.3) 02/10/24 18:51
AST 21 U/L (14-36) 02/10/24 18:51
ALT 20 U/L (0-35) 02/10/24 18:51
Alkaline Phosphatase 78 U/L (38-126) 02/10/24 18:51
C-Reactive Protein 201.30 mg/L (0.0-10.00) H 02/19/24 06:32
Most recent labs reviewed.
Micro Results:
02/15/24 16:43 Wound Culture - Final
Chest - Unspecified Pseudomonas aeruginosa
Gram Stain - Final
02/11/24 12:57 Blood Culture - Final
Blood/Venous No Growth - Final Report
02/13/24 08:10 Body Fluid Culture - Final
Pleural Fluid No Growth After 72 Hours
Gram Stain - Final
Imaging:
02/15/2024 CXR (portable): Small to moderate right pleural effusion without significant change. Cannot exclude tiny left pleural effusion. No pneumothorax noted. Pulmonary vascularity is top normal. Please see full dictation for additional
detail. Film personally viewed.
[2024-02-19] MEDS: ULTRAM 12.5 MG PO (12:01)
[2024-02-19] MEDS: FEOSOL 325 MG PO (12:01)
[2024-02-19] MEDS: VITAMIN C 500 MG PO (12:01)
[2024-02-19] MEDS: STERILE WATER FOR INJECTION 10 ML IV ×2 (12:02→21:01)
[2024-02-19] MEDS: MERREM 500 MG IV ×2 (12:02→21:01)
[2024-02-19 12:28] LABS: Glucose - Point of Care 215 mg/dl (70-99)
--- NOTE | 2024-02-19 12:41 | W.PN.NEPH.PH ---
Today's Communication / Plan
-
see plan
Assessment/Plan
-
Assessment:
CAD
Sternal wound
KELLIE on CKD3b (1.5)
SOB
HTN
HFrEF, decompensated
Edema
Diabetes mellitus type 2
Leukocytosis
Anemia
PPM
Plan:
KELLIE-cr slow upward trend at 2.6
recheck UA, U eosinophils, renal US and bladder scan
on abx since 02/11, abx(meropenem) per ID
leucocytosis slowly improving, no sig eosinophilia
stable resp status, wt is slightly up cont lasix today
avoid nephrotoxins, off Toradol(doses 02/11, 02/13, 02/14)
h/h decreasing, microcytic, with Fe sat only 18% , ferritin 960 in acute illness
on Po fe, prn transfusions
follow labs
-
-
Date of Service: February 19, 2024
CC / HPI / ROS
-
Chief Complaint:
KELLIE
History of Present Illness:
Creatinine up to 2.6
Hemodynamically stable
On meropenem for sternal wound
no fever, WBC slow to improve, hb low 7.5
no fever
Review of Systems:
Weights slightly up
Subjectively nonoliguric
Sternal wound
c/o neck pain, thyroid US done
no sob
Labs
-
Labs:
WBC 16.7 10^3/uL (4.8-10.8) H 02/19/24 06:32
RBC 2.85 10^6/uL (4.20-5.40) L 02/19/24 06:32
Hgb 7.5 g/dL (12.0-16.0) L 02/19/24 06:32
Hct 23.6 % (37.0-47.0) L 02/19/24 06:32
Plt Count 522 10^3/uL (130-400) H 02/19/24 06:32
Sodium 140 mmol/L (135-145) 02/19/24 06:32
Potassium 3.8 mmol/L (3.5-5.1) 02/19/24 06:32
Chloride 98 mmol/L (98-107) 02/19/24 06:32
Carbon Dioxide 28 mmol/L (22-30) 02/19/24 06:32
BUN 68 mg/dl (7-17) H 02/19/24 06:32
Creatinine 2.6 mg/dL (0.6-1.0) H 02/19/24 06:32
eGFR 18.44 02/19/24 06:32
Glucose 164 mg/dl (70-99) H 02/19/24 06:32
Calcium 9.2 mg/dl (8.4-10.2) 02/19/24 06:32
Upl-L-Rdwuumxgroz Pept 6770 pg/ml 02/10/24 18:51
Albumin 3.3 g/dl (3.5-5.0) L 02/10/24 18:51
Physical Exam
-
Vital Signs:
Vital Signs
Temp Pulse Resp BP Pulse Ox
98.1 F 89 17 116/66 96
02/19/24 11:23 02/19/24 11:23 02/19/24 11:23 02/19/24 11:23 02/19/24 11:23
Cardiovascular:: Regular rate and rhythm
Lung Excursion:: Normal (decreased)
Abdomen:: Nontender and Soft
Extremity Edema:: None: Bilateral:
Jones Catheter: No
--- NOTE | 2024-02-19 12:53 | CM ---
Spoke with patient bedside.
Patient aware of [facility] availability for home care needs.
Plan: home with possible IV anbx and VN.
--- NOTE | 2024-02-19 12:56 | CM ---
Patient seen bedside.
Patient re-evaluated by [facility] and recommendation is for acute rehab once stable.
CM will continue to follow.
Plan: [facility] once medically stable.
[2024-02-19] MEDS: NOVOLOG FLEXPEN-LOW RESISTANCE 2 UNITS SC ×2 (13:55→17:13)
[2024-02-19] MEDS: MYCOSTATIN ORAL SUSPENSION 5 ML PO ×3 (13:55→20:47)
[2024-02-19] MEDS: APRESOLINE PO (13:55)
[2024-02-19 16:54] LABS: Glucose - Point of Care 203 mg/dl (70-99)
[2024-02-19] MEDS: DELTASONE 40 MG PO (17:13)
[2024-02-19] MEDS: CRESTOR 20 MG PO (17:13)
--- NOTE | 2024-02-19 17:25 | W.PN.CD ---
Addendum entered and electronically signed by Bertin Wylie MD (Ellie) 02/19/24 18:09:
I saw and examined the patient.
The LICENSED ELECTRICIAN's note was reviewed and I agree with the note.
Comment: 78-year-old female with CAD, s/p PCI to RCA, LAD and LCx - last stent 2018, s/p CABG X4 11/29/23 with complete heart block and chronic systolic HF with LVEF of 30% s/p dual chamber ICD ([employer] 12/01/23) is admitted with acute heart failure
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 Cardiology is consulted for left supraclavicular swelling that the primary team is concerned may be related to her device. On exam she has a soft, tender
area of swelling in the left supraclavicular region. No erythema or drainage from the site. We have ordered a focal ultrasound of the area and we will have our EP colleagues see her tomorrow morning to both look at the site and comment on her
sternal osteomyelitis (will need to know if she needs device removal).
Original Note:
Today's Communication / Plan
-
US pending
Impression / Plan
-
BACKGROUND: 78F with CAD, s/p PCI to RCA, LAD and LCx - last stent 2019, s/p CABG X4 11/29/23 with complete heart block and chronic systolic HF with LVEF of 30% s/p dual chamber ICD ([employer] 12/01/23) is admitted with acute heart failure.
PLAN:
Fatigue/shortness of breath improved
-May be multifactorial contributing factors including - anemia, cardiomyopathy, heart failure with reduced ejection fraction and pleural effusion.
-Treatment of anemia as directed by primary team.
-s/p thoracentesis
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
-ID following
-EP updated on culture findings
Left neck with mass (supraclavicular/sternocleidomastoid)
-Thyroid ultrasound ordered by primary
-No SQ emphysema
-Device site without pocket fullness, leads are stable on most recent chest x-ray
KELLIE on CKD, nephrology following
HFrEF s/p ICD, now recovered, chronic
-Previous EF 30%, now improved to 55-60% on echocardiogram with mild to moderate MR and moderate TR.
-Lasix 20 mg daily.
-Further GDMT has been limited by renal insufficiency
-Continue carvedilol 12.5 mg PO BID.
-Amlodipine 5 mg (no benefit in CHF) to Imdur 30 mg daily as there is benefit of combination Imdur/hydralazine in CHF patients (especially in -[place] patients).
CAD s/p recent CABG:
-Residual wound dehiscence.
-Patient previously had wound VAC follow-up with CT surgery
Anemia.
-S/P 1 unit of PRBCs.
- Management as per primary team
SUBJECTIVE:
Denies CP, SOB, and RODRIGUES. Left neck pain with movement.
Physical Exam
Vital Signs/Labs
Vital Signs
Temp Pulse Resp BP Pulse Ox
98.2 F 93 17 127/71 96
02/19/24 15:04 02/19/24 15:04 02/19/24 15:04 02/19/24 15:04 02/19/24 15:04
02/18/24 02/19/24 02/20/24
06:59 06:59 06:59
Actual Weight 58.258 kg 60.413 kg
02/19/24 06:32
02/19/24 06:32
Magnesium 2.2 mg/dl (1.6-2.3) 02/18/24 06:24
02/10/24
18:51
Tio-G-Uqigfvyseig Pept 6770
Physical Exam
Constitutional: No acute distress and Comfortable
EENT: Anicteric and Moist mucous membranes
Cardiovascular: Rhythm & rate is regular, Pedal edema is absent and S1S2 is normal
Respiratory: Respiratory effort normal and Lungs clear to auscul.
GI: Soft, Distention absent, Flat, Non tender and Normal bowel sounds
Neuro/Psych: AO x 3
Other: Skin (warm and dry)
Data Reviewed
-
Date of Service: February 19, 2024
[2024-02-19 20:06] LABS: Urine Albumin 1+ (Neg - Trace); Urine Bilirubin Negative (Negative); Urine Character Slightly Cloudy (Clear); Urine Color Yellow; Urine Glucose Negative (Negative); Urine Ketone Negative (Negative); Urine Leukocyte 2+ (Negative); Urine Nitrite Negative (Negative); Urine Occult Blood Trace (Negative); Urine Specific Gravity 1.015 (<1.030); Urine Urobilinogen Negative (Neg - 1+)
[2024-02-19 20:22] LABS: Urine Sodium 45 mmol/L (30-90)
[2024-02-19 20:24] LABS: Urine Bacteria Many (Negative); Urine White Cell >100 /HPF (0-5)
[2024-02-19] MEDS: NEURONTIN 300 MG PO (20:48)
[2024-02-19 21:12] LABS: Glucose - Point of Care 249 mg/dl (70-99)
[2024-02-19] MEDS: HYDROPHOR TOPICAL (23:30)
[2024-02-20 03:20] VITALS: BP 133/71
[2024-02-20 06:00] VITALS: BMI 19.7
[2024-02-20 07:43] LABS: Glucose - Point of Care 262 mg/dl (70-99)
[2024-02-20] MEDS: NOVOLOG FLEXPEN-LOW RESISTANCE 3 UNITS SC (07:50)
[2024-02-20] MEDS: VISBIOME 1 CAP PO (07:51)
[2024-02-20] MEDS: LIDOCAINE 4% PATCH TOPICAL ×2 (07:51→08:04)
[2024-02-20] MEDS: LOW STRENGTH ASPIRIN 81 MG PO (07:51)
[2024-02-20] MEDS: COREG 12.5 MG PO ×2 (07:51→20:10)
[2024-02-20] MEDS: MYCOSTATIN ORAL SUSPENSION 5 ML PO ×3 (07:51→17:49)
[2024-02-20] MEDS: APRESOLINE 50 MG PO ×3 (07:51→20:10)
[2024-02-20] MEDS: SENOKOT-S 1 TABLET PO ×2 (07:52→20:10)
[2024-02-20] MEDS: HYDROPHOR 1 APPLIC TOPICAL (07:52)
[2024-02-20] MEDS: LASIX 20 MG PO (07:52)
[2024-02-20] MEDS: IMDUR (EXTENDED RELEASE) 30 MG PO (07:52)
[2024-02-20] MEDS: DELTASONE 40 MG PO (07:52)
[2024-02-20] MEDS: PLAVIX 75 MG PO (07:52)
[2024-02-20 07:53] VITALS: BP 135/81
--- NOTE | 2024-02-20 09:00 | W.PN.HOSP.TC ---
Today's Communication/Plan
-
see bold
Assessment / Plan
Assessment / Plan
#Leukocytosis
#Exudative right pleural effusion
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
-Differentials for leukocytosis include parapneumonic effusion versus infected sternal wound
-S/p thoracentesis 02/12, exudative per lights criteria; culture was negative however
-Has had persistently elevated WBC that peaked at 25 and has been downtrending on antibiotics
-Sternal wound cultures positive for pansensitive Pseudomonas; blood cultures here were negative
-CRP/ESR elevated, ID recommends 6 weeks of IV antibiotics for suspected sternal osteomyelitis
#KELLIE on CKD 3B
-Secondary to decompensated heart failure and hypervolemia, cardiorenal syndrome type 1
-Baseline creatinine 1.5; presented with creatinine near 2.2 however back near baseline
-Suspect that her new creatinine baseline is roughly 2.0
-Renal ultrasound shows 4.1 cm right renal cyst. Creatinine 2.6 today
-Appreciate nephrology input, trend creatinine
-Avoid nephrotoxic drugs/NSAIDs
#Acute on chronic HFrecEF
-History of HFrEF with Takotsubo cardiomyopathy; status post IV diuretic regimen here
-She did have TTE performed yesterday, 02/13/2024, that showed recovery of systolic function (EF 55%)
-Status post IV Lasix, currently on Lasix 20 mg p.o. daily
-Continue GDMT with carvedilol, hydralazine/Imdur
#Edema of left sternoclavicular area
-Evaluated by cardiology, not related to pacemaker leads
-Focal ultrasound negative for acute abnormalities
-Suspect secondary to patient's left shoulder injury that she incurred while being repositioned last week
-Continue to monitor
#Left shoulder calcific tendinitis
-Has complained of left shoulder pain since being repositioned a few days ago
-X-ray without any acute findings, did show calcific tendinitis
-IV Toradol discontinued due to KELLIE, started on prednisone 40 mg p.o. daily 02/18�plan for 5-day burst course
-Continue tramadol as needed
#CAD s/p PCI, CABG (2023)
-Home medications include beta-juan, aspirin, Plavix, high intensity
-Does have significant systolic dysfunction with EF 35%; Recovered EF per TTE here
-No current signs of ACS
#Acute on chronic normocytic anemia
-Differentials include occult bleeding, bone marrow process; unlikely hemolysis or nutritional deficiency
-She had an iron panel earlier in hospital stay that was consistent with anemia of chronic disease
-S/p 2 unit PRBC total; hemoglobin responded appropriately with hemoglobin 8.9�9.0 next draws
-Reticulocyte count 1%, anticipated being slightly higher due to her anemia, cannot r/o bone marrow component
-Discontinued chemical DVT prophylaxis, now on compression stocking
#IDDM
-Most recent A1c 6.3%; per family blood sugar has been on the lower side more recently
-Started on Lantus 10 units daily, NovoLog 4 units AC 3 times daily to cover for steroid-induced hyperglycemia
#Essential hypertension
-Home medications include carvedilol, amlodipine, hydralazine
-No known hypertensive systemic
-Home meds continued with hold parameters
#Recent Sternal and Right LE Graft Donor Site Wound Dehiscence
-Wound care following
-See above for more detail
#H/O Complete Heart Block s/p Pacemaker/ICD
DVT proph: HSQ
Code Status: Full Code
Disposition: [facility] when medically stable
Updated daughter on phone 02/18, 02/19
Total time spent to see the patient on the floor, examine the patient, review data and lab results, discuss treatment plan with patient, nursing staff around 52 minutes.
Physical Exam
General: Appears debilitated, no acute distress
HEENT: Normocephalic, Atraumatic, EOMI, MMM
Edema/fullness of left supraclavicular area
Respiratory: Bibasilar crackles
Chest wall: Sternal wound dressed
Cardiac: Normal S1/S2, Regular Rate and Rhythm
GI: Soft, Nontender, Nondistended, Normal Bowel Sounds
Extremities: No Clubbing, Cyanosis
Musculoskeletal: Severe weakness of left shoulder with pain
Psych: Calm, Cooperative
Anticipated Discharge: > 48 hours
Subjective/Interval History
-
Date of Service: February 20, 2024
Patient's left shoulder pain has improved dramatically, she is able to move it now. Denies sternal pain. No shortness of breath. No nausea, no vomiting. No fever.
Objective Data
-
Vital Signs:
Vital Signs
Temp Pulse Resp BP Pulse Ox
97.9 F 83 16 135/81 96
02/20/24 07:53 02/20/24 07:53 02/20/24 07:53 02/20/24 07:53 02/20/24 07:53
I&O
02/19/24 02/20/24 02/21/24
06:59 06:59 06:59
Intake Total 1170 / 1170 720 / 720
Balance 1170 / 1170 720 / 720
--- NOTE | 2024-02-20 09:58 | PTCARENOTE ---
pt aaox3 states no pain in chest left shoulder feels better. chest dressing c/d/i. pt one person assist to chair.
[2024-02-20] MEDS: LANTUS 0.1 UNITS SC ×2 (10:11→22:24)
[2024-02-20] MEDS: STERILE WATER FOR INJECTION 10 ML IV ×2 (10:12→22:19)
[2024-02-20] MEDS: MERREM 500 MG IV ×2 (10:12→22:19)
[2024-02-20 10:50] VITALS: BP 136/73
--- NOTE | 2024-02-20 11:17 | CM ---
Spoke with patient and daughter bedside.
Per daughter and patient, patient does have prescription coverage thru [facility].
Daughter place a call to sister requesting copy of the card.
Plan: [facility] once medically stable.
[2024-02-20 12:22] LABS: Glucose - Point of Care 348 mg/dl (70-99)
[2024-02-20] MEDS: VITAMIN C 500 MG PO (12:31)
[2024-02-20] MEDS: FEOSOL 325 MG PO (12:31)
[2024-02-20] MEDS: NOVOLOG FLEXPEN-LOW RESISTANCE 4 UNITS SC (12:32)
[2024-02-20] MEDS: NOVOLOG FLEXPEN 4 UNITS SC (12:32)
--- NOTE | 2024-02-20 14:45 | W.PN.ID1 ---
Date of Service
Date of Service: February 20, 2024
Today's Communication
Continue antibiotics.
Assessment / Plan
Impression/Assessment:
Leukocytosis
Sternal wound
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
Pleural effusion
- appears to be exudative given total protein, LDH and triglycerides
- cultures negative to date.
Anemia
KELLIE on CKD
HTN
Dyslipidemia
CAD; Hx CABG 10/2023
DM
CKD
Recommendations:
CT chest 02/16: Moderate soft tissue edema anterior and posterior to the sternum, No CT evidence for wire fracture or sternal dehiscence, enlargement of a moderate right pleural effusion, RLL airspace consolidation
Wound cultures 02/14: Pseudomonas
ESR and crp elevated
Continue with meropenem (day #4) to complete a 6-week course.
Continue to monitor white count and temperature curve, along with cr. / est. CrCl.
Afebrile today and WBC downtrending
����������������������������������������������������������
Chief Complaint
-: Leukocytosis
Subjective / Review of Systems
Review of Systems: No Fever and No Chills
Vital Signs / Physical Exam
Vital Signs
Vital Signs
Temp Pulse Resp BP Pulse Ox
98.2 F 89 17 136/73 95
02/20/24 10:50 02/20/24 10:50 02/20/24 10:50 02/20/24 14:35 02/20/24 10:50
Physical Exam
Constitutional: No Acute Distress, Comfortable and Non-toxic
Head: Normocephalic
Eyes: Sclera Anicteric
Cardiovascular: Regular Rate and S1/S2; Negative S3/S4
Pulmonary: Clear and Non Labored
Gastrointestinal: Soft, Non Tender and Non Distended
Skin: Warm, Dry and Other (mild puffiness on L side neck)
Neurological: Awake, Alert and Oriented
Objective Data
Lab Data
Lab Results
02/19/24 06:32
02/19/24 06:32
ESR > 145 mm/hour (0-20) H 02/19/24 06:32
Estimated Creat Clear 17 ml/min 02/19/24 06:32
Total Bilirubin 0.2 mg/dl (0.2-1.3) 02/10/24 18:51
AST 21 U/L (14-36) 02/10/24 18:51
ALT 20 U/L (0-35) 02/10/24 18:51
Alkaline Phosphatase 78 U/L (38-126) 02/10/24 18:51
C-Reactive Protein 201.30 mg/L (0.0-10.00) H 02/19/24 06:32
Most recent labs reviewed.
Micro Results:
02/15/24 16:43 Wound Culture - Final
Chest - Unspecified Pseudomonas aeruginosa
Gram Stain - Final
02/11/24 12:57 Blood Culture - Final
Blood/Venous No Growth - Final Report
02/13/24 08:10 Body Fluid Culture - Final
Pleural Fluid No Growth After 72 Hours
Gram Stain - Final
Imaging:
02/15/2024 CXR (portable): Small to moderate right pleural effusion without significant change. Cannot exclude tiny left pleural effusion. No pneumothorax noted. Pulmonary vascularity is top normal. Please see full dictation for additional
detail. Film personally viewed.
[2024-02-20 15:22] VITALS: BP 126/68
[2024-02-20 16:40] LABS: Glucose - Point of Care 391 mg/dl (70-99)
[2024-02-20] MEDS: NOVOLOG FLEXPEN SC (16:55)
[2024-02-20] MEDS: NOVOLOG FLEXPEN-LOW RESISTANCE 5 UNITS SC (17:03)
[2024-02-20] MEDS: NOVOLOG FLEXPEN 10 UNITS SC (17:04)
--- NOTE | 2024-02-20 17:41 | W.PN.NEPH.PH ---
Today's Communication / Plan
-
follow labs
Assessment/Plan
-
Assessment:
CAD
Sternal wound
KELLIE on CKD3b (1.5)
SOB
HTN
HFrEF, decompensated
Edema
Diabetes mellitus type 2
Leukocytosis
Anemia
PPM
Plan:
KELLIE-cr slow upward trend at 2.6, await labs
UA with UTI sample, U eosinophils pending, non acute renal US, can not exclude non obst stone
on abx since 02/11, abx(now on meropenem) per ID
leucocytosis slowly improving, no sig eosinophilia
stable resp status, wt is slightly up cont lasix today
avoid nephrotoxins, off Toradol(doses 02/11, 02/13, 02/14)
h/h stable at 8.3, microcytic, with Fe sat only 18% , ferritin 960 in acute illness
on Po fe, prn transfusions
follow labs
d/w pt
-
-
Date of Service: February 20, 2024
CC / HPI / ROS
-
Chief Complaint:
KELLIE
History of Present Illness:
Creatinine up to 2.6, pending labs today
Hemodynamically stable
On meropenem for sternal wound
no fever, WBC slow to improve, hb up at 8.3
no fever
Review of Systems:
Weights decreasing
Subjectively nonoliguric
Sternal wound
improving neck pain,
no sob
Labs
-
Labs:
eGFR 18.44 02/19/24 06:32
Fzb-Z-Untrkgvudho Pept 6770 pg/ml 02/10/24 18:51
Albumin 3.3 g/dl (3.5-5.0) L 02/10/24 18:51
Physical Exam
-
Vital Signs:
Vital Signs
Temp Pulse Resp BP Pulse Ox
97.6 F 91 17 126/68 97
02/20/24 15:22 02/20/24 15:22 02/20/24 15:22 02/20/24 15:22 02/20/24 15:22
Cardiovascular:: Regular rate and rhythm
Lung Excursion:: Normal (decreased BS)
Abdomen:: Nontender and Soft
Extremity Edema:: None: Bilateral:
Jones Catheter: No
[2024-02-20 17:45] LABS: Platelet Count 617 10^3/uL (130-400)
[2024-02-20 17:46] LABS: Hematocrit 25.1 % (37.0-47.0); Hemoglobin 8.3 g/dL (12.0-16.0); Mean Corp Hgb Conc. 33.1 g/dL (33.0-37.0); Mean Corpuscular Hgb 26.3 pg (27.0-31.0); Mean Corpuscular Volume 79.7 fL (81.0-99.0); Mean Platelet Volume 8.5 fL (7.4-10.4); Red Blood Cell Count 3.15 10^6/uL (4.20-5.40); Red Cell Dist. Width 16.3 % (11.5-14.5); White Blood Cell Count 16.3 10^3/uL (4.8-10.8)
[2024-02-20] MEDS: CRESTOR 20 MG PO (17:49)
[2024-02-20 18:07] LABS: Blood Urea Nitrogen 82 mg/dl (7-17); Calcium 9.3 mg/dl (8.4-10.2); Carbon Dioxide 23 mmol/L (22-30); Chloride 95 mmol/L (98-107); Estimated Creatinine Clearance 19 ml/min; Glucose 348 mg/dl (70-99); Potassium 4.3 mmol/L (3.5-5.1); Sodium 136 mmol/L (135-145); eGFR 21.36
[2024-02-20 19:30] VITALS: BP 136/77
[2024-02-20 21:32] LABS: Glucose - Point of Care 374 mg/dl (70-99)
[2024-02-20] MEDS: NEURONTIN 300 MG PO (22:24)
[2024-02-20] MEDS: MYCOSTATIN ORAL SUSPENSION PO ×2 (22:24→22:31)
[2024-02-20 23:15] VITALS: BP 128/64
[2024-02-21] VITALS (7 sets, daily range): BP systolic 134–159; BP diastolic 77–91; PULSE 86; O2SAT 96; BMI 19.5
[2024-02-21 07:45] LABS: Glucose - Point of Care 319 mg/dl (70-99)
[2024-02-21] MEDS: IMDUR (EXTENDED RELEASE) 30 MG PO (09:21)
[2024-02-21] MEDS: DELTASONE 40 MG PO (09:22)
[2024-02-21] MEDS: PLAVIX 75 MG PO (09:22)
[2024-02-21] MEDS: LOW STRENGTH ASPIRIN 81 MG PO (09:23)
[2024-02-21] MEDS: APRESOLINE 50 MG PO ×3 (09:23→20:34)
[2024-02-21] MEDS: VISBIOME 1 CAP PO (09:24)
[2024-02-21] MEDS: LASIX 20 MG PO (09:24)
[2024-02-21] MEDS: SENOKOT-S 1 TABLET PO ×2 (09:24→20:35)
[2024-02-21] MEDS: COREG 12.5 MG PO ×2 (09:24→20:39)
[2024-02-21] MEDS: NOVOLOG FLEXPEN SC (09:25)
[2024-02-21] MEDS: NOVOLOG FLEXPEN-LOW RESISTANCE 4 UNITS SC ×2 (09:25→12:27)
[2024-02-21] MEDS: LANTUS 0.15 UNITS SC ×2 (09:26→23:26)
[2024-02-21] MEDS: NOVOLOG FLEXPEN 14 UNITS SC ×2 (09:26→12:27)
[2024-02-21] MEDS: LIDOCAINE 4% PATCH TOPICAL ×2 (09:27→09:41)
[2024-02-21] MEDS: MYCOSTATIN ORAL SUSPENSION PO ×4 (09:27→16:26)
[2024-02-21] MEDS: HYDROPHOR 1 APPLIC TOPICAL (09:28)
[2024-02-21 09:30] LABS: Hematocrit 25.7 % (37.0-47.0); Hemoglobin 8.6 g/dL (12.0-16.0); Mean Corp Hgb Conc. 33.5 g/dL (33.0-37.0); Mean Corpuscular Hgb 27.4 pg (27.0-31.0); Mean Corpuscular Volume 81.8 fL (81.0-99.0); Mean Platelet Volume 8.3 fL (7.4-10.4); Platelet Count 637 10^3/uL (130-400); Red Blood Cell Count 3.14 10^6/uL (4.20-5.40); Red Cell Dist. Width 16.6 % (11.5-14.5); White Blood Cell Count 20.4 10^3/uL (4.8-10.8)
--- NOTE | 2024-02-21 10:01 | PN.CDI ---
CDI
- -
CDI:
Physician Documentation Request
Admit Date: 02/10/24 22:35
Dear Doctor Do,
Please review the following and provide your response in the progress notes.
Clinical Indicators:
Height: 5ft 8 in
Weight: 128 lb 2 oz
BMI:19.5
If possible, please provide an associated diagnosis related to the abnormal BMI, such as:
Underweight
Cachectic
- Other
Use of terms such as suspected, likely, concern for, or probable (associated with a specific diagnosis that is being evaluated, monitored, or treated as if it exists) are acceptable and can be coded in the inpatient setting, when documented at the
time of discharge.
Thank you,
Sandra Arana RN
CDI Specialist
[facility]
Please use your independent medical judgment in providing your response.
[2024-02-21] MEDS: MERREM 500 MG IV ×2 (10:28→23:22)
[2024-02-21] MEDS: STERILE WATER FOR INJECTION 10 ML IV ×2 (10:29→23:22)
[2024-02-21 11:28] LABS: Blood Urea Nitrogen 92 mg/dl (7-17); Calcium 9.6 mg/dl (8.4-10.2); Carbon Dioxide 21 mmol/L (22-30); Chloride 96 mmol/L (98-107); Estimated Creatinine Clearance 19 ml/min; Glucose 272 mg/dl (70-99); Potassium 4.4 mmol/L (3.5-5.1); Sodium 137 mmol/L (135-145); eGFR 21.36
--- NOTE | 2024-02-21 11:31 | CM ---
Addendum entered by Maria L Rodney 02/21/24 15:53:
TT from [facility] estimated Supply costs $140 weekly.
Supplies plus medication copay approximately $144.50 weekly. Subject to change, based on test claim submitted.
Discussed bedside with patient, and patient in agreement.
Patient also in agreement for [facility] at d/c.
Addendum entered by Maria L Rodney 02/21/24 15:24:
TT from [facility], Medications OOP costs for patient would be $4.50 per week. she is checking on supplies coverage and will get back to CM.
Spoke with Aundrea Sneed from [facility], will f/u in am.
Original Note:
TC from [facility] re IV medication coverage and costs and ability to administer at home.
Patient agreeable to outpatient anbx, daughter can help.
Discussed Options with patient and will send clinicals/medication/insurance to [facility] to see coverage/OOP costs.
Patient agreeable to CM calling [facility] for her PACE number.
Pace# [id number].
Plan: hopefully rehab when stable.
[2024-02-21 12:01] LABS: Glucose - Point of Care 319 mg/dl (70-99)
--- NOTE | 2024-02-21 12:27 | W.PN.ID1 ---
Date of Service
Date of Service: February 21, 2024
Today's Communication
Continue antibiotics.
Assessment / Plan
Leukocytosis
Sternal wound
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
Pleural effusion
- appears to be exudative given total protein, LDH and triglycerides
- cultures negative to date.
Anemia
KELLIE on CKD
HTN
Dyslipidemia
CAD; Hx CABG 10/2023
DM
CKD
Recommendations:
Wound cultures 02/14: Pseudomonas
ESR and crp elevated
Continue with meropenem (day #5) to complete a 6-week course.
Continue to monitor white count and temperature curve, along with cr. / est. CrCl.
����������������������������������������������������������
Chief Complaint
-: Leukocytosis
Subjective / Review of Systems
Patient seen and examined. Overall feels improved. Notes that prior discomfort in the left sternoclavicular area has now resolved.
Review of Systems: No Fever and No Chills
Vital Signs / Physical Exam
Vital Signs
Vital Signs
Temp Pulse Resp BP Pulse Ox
98.2 F 86 16 158/86 97
02/21/24 11:00 02/21/24 11:00 02/21/24 11:00 02/21/24 11:00 02/21/24 11:00
Physical Exam
Constitutional: No Acute Distress, Comfortable, Chronically Ill and Non-toxic
Head: Normocephalic
Eyes: Sclera Anicteric
Cardiovascular: Regular Rate and S1/S2; Negative S3/S4
Pulmonary: Clear and Non Labored
Gastrointestinal: Soft, Non Tender and Non Distended
Extremities: Negative Cyanosis or Erythema
Skin: Warm, Dry and Other (mild puffiness on L side neck)
Neurological: Awake, Alert and Oriented
Objective Data
Lab Data
Lab Results
02/21/24 08:56
02/21/24 08:56
ESR > 145 mm/hour (0-20) H 02/19/24 06:32
Estimated Creat Clear 19 ml/min 02/21/24 08:56
Total Bilirubin 0.2 mg/dl (0.2-1.3) 02/10/24 18:51
AST 21 U/L (14-36) 02/10/24 18:51
ALT 20 U/L (0-35) 02/10/24 18:51
Alkaline Phosphatase 78 U/L (38-126) 02/10/24 18:51
C-Reactive Protein 201.30 mg/L (0.0-10.00) H 02/19/24 06:32
Most recent labs reviewed.
Micro Results:
02/15/24 16:43 Wound Culture - Final
Chest - Unspecified Pseudomonas aeruginosa
Gram Stain - Final
02/11/24 12:57 Blood Culture - Final
Blood/Venous No Growth - Final Report
02/13/24 08:10 Body Fluid Culture - Final
Pleural Fluid No Growth After 72 Hours
Gram Stain - Final
Wound/abscess/other Cult Final 02/17/24-37
Few Pseudomonas aeruginosa
Organism 1 Pseudomonas aeruginosa
1. Pseudomonas aeruginosa
M.I.C. RX
--------- ---
Aztreonam <=4 S
Cefepime 4 S
Ceftazidime 4 S
Ciprofloxacin <=0.25 S
Meropenem 2 S
Piperacillin/Tazobactam <=8 S
Tobramycin <=2 S
Imaging:
02/17/2024 CT chest : Moderate soft tissue edema anterior and posterior to the sternum, No CT evidence for wire fracture or sternal dehiscence, enlargement of a moderate right pleural effusion, RLL airspace consolidation
02/15/2024 CXR (portable): Small to moderate right pleural effusion without significant change. Cannot exclude tiny left pleural effusion. No pneumothorax noted. Pulmonary vascularity is top normal. Please see full dictation for additional
detail. Film personally viewed.
Care Review
Plan reviewed with: Physician (Hospitalist)
--- NOTE | 2024-02-21 12:29 | W.PN.HOSP.TC ---
Today's Communication/Plan
-
Insert PICC
Discharge to [facility] tomorrow
Assessment / Plan
Assessment / Plan
#Leukocytosis
#Exudative right pleural effusion
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
-Differentials for leukocytosis include parapneumonic effusion versus infected sternal wound
-S/p thoracentesis 02/12, exudative per lights criteria; culture was negative however
-Has had persistently elevated WBC that peaked at 25 and has been downtrending on antibiotics
-Sternal wound cultures positive for pansensitive Pseudomonas; blood cultures here were negative
-CRP/ESR elevated, ID recommends 6 weeks of IV antibiotics for suspected sternal osteomyelitis
-Insert PICC, dc to [facility] tomorrow
#KELLIE on CKD 3B
-Secondary to decompensated heart failure and hypervolemia, cardiorenal syndrome type 1
-Baseline creatinine 1.5; presented with creatinine near 2.2 however back near baseline
-Suspect that her new creatinine baseline is roughly 2.0
-Renal ultrasound shows 4.1 cm right renal cyst. Creatinine 2.3 today, peaked at 2.6
-Appreciate nephrology input, trend creatinine
-Avoid nephrotoxic drugs/NSAIDs
#Acute on chronic HFrecEF
-History of HFrEF with Takotsubo cardiomyopathy; status post IV diuretic regimen here
-She did have TTE performed yesterday, 02/13/2024, that showed recovery of systolic function (EF 55%)
-Status post IV Lasix, currently on Lasix 20 mg p.o. daily
-Continue GDMT with carvedilol, hydralazine/Imdur
#Edema of left sternoclavicular area
-Evaluated by cardiology, not related to pacemaker leads
-Focal ultrasound negative for acute abnormalities
-Suspect secondary to patient's left shoulder injury that she incurred while being repositioned last week
-Continue to monitor
#Left shoulder calcific tendinitis
-Has complained of left shoulder pain since being repositioned a few days ago
-X-ray without any acute findings, did show calcific tendinitis
-IV Toradol discontinued due to KELLIE, started on prednisone 40 mg p.o. daily 02/18�plan for 7-day burst course
-Continue tramadol as needed
#CAD s/p PCI, CABG (2023)
-Home medications include beta-juan, aspirin, Plavix, high intensity
-Does have significant systolic dysfunction with EF 35%; Recovered EF per TTE here
-No current signs of ACS
#Acute on chronic anemia, due to chronic disease and iron deficiency
-Differentials include occult bleeding, bone marrow process; unlikely hemolysis or nutritional deficiency
-She had an iron panel earlier in hospital stay that was consistent with anemia of chronic disease
-S/p 2 unit PRBC total; hemoglobin responded appropriately with hemoglobin 8.9�9.0 next draws
-Reticulocyte count 1%, anticipated being slightly higher due to her anemia, cannot r/o bone marrow component
#IDDM
-Most recent A1c 6.3%; per family blood sugar has been on the lower side more recently
-Increase Lantus to 15 units BID, NovoLog 18 units AC 3 times daily to cover for steroid-induced hyperglycemia
#Essential hypertension
-Home medications include carvedilol, amlodipine, hydralazine
-No known hypertensive systemic
-Home meds continued with hold parameters
#Recent Sternal and Right LE Graft Donor Site Wound Dehiscence
-Wound care following
-See above for more detail
#H/O Complete Heart Block s/p Pacemaker/ICD
#BMI 19.5 normal
DVT proph: HSQ
Code Status: Full Code
Disposition: [facility] when medically stable
Updated daughter on phone 02/18, 02/19, 02/20
Total time spent to see the patient on the floor, examine the patient, review data and lab results, discuss treatment plan with patient, nursing staff around 51 minutes.
Physical Exam
General: Appears debilitated, no acute distress
HEENT: Normocephalic, Atraumatic, EOMI, MMM
Edema/fullness of left supraclavicular area
Respiratory: Bibasilar crackles
Chest wall: Sternal wound dressed
Cardiac: Normal S1/S2, Regular Rate and Rhythm
GI: Soft, Nontender, Nondistended, Normal Bowel Sounds
Extremities: No Clubbing, Cyanosis
Musculoskeletal: Severe weakness of left shoulder with pain
Psych: Calm, Cooperative
Anticipated Discharge: Within 24 hours
Subjective/Interval History
-
Date of Service: February 21, 2024
Left shoulder pain resolved. Denies sternal pain. No shortness of breath, no chest pain. No fever, no vomiting.
Objective Data
-
Labs:
Laboratory Results
02/21/24
08:56
WBC 20.4 H
Hgb 8.6 L
Hct 25.7 L
Plt Count 637 H
Sodium 137
Potassium 4.4
Chloride 96 L
Carbon Dioxide 21 L
BUN 92 H
Creatinine 2.3 H
Glucose 272 H
Calcium 9.6
Vital Signs:
Vital Signs
Temp Pulse Resp BP Pulse Ox
98.2 F 86 16 158/86 97
02/21/24 11:00 02/21/24 11:00 02/21/24 11:00 02/21/24 11:00 02/21/24 11:00
I&O
02/20/24 02/21/24 02/22/24
06:59 06:59 06:59
Intake Total 720 / 720 600 / 600
Output Total 0 / 0
Balance 720 / 720 600 / 600
[2024-02-21] MEDS: FEOSOL 325 MG PO (13:14)
[2024-02-21] MEDS: VITAMIN C 500 MG PO (13:14)
--- NOTE | 2024-02-21 15:12 | W.PN.NEPH.PH ---
Today's Communication / Plan
-
Hold Lasix given worsening azotemia
Assessment/Plan
-
Assessment:
CAD
Sternal wound
KELLIE on CKD3b (1.5)
SOB
HTN
HFrEF, decompensated
Edema
Diabetes mellitus type 2
Leukocytosis
Anemia
PPM
Plan:
KELLIE-cr at 2.3 but BUN climbing to 92
will hold lasix for azotemia,weights now
UA with UTI sample, U eosinophils pending, non acute renal US, can not exclude non obst stone
on abx since 02/11, abx(now on meropenem) per ID
leucocytosis slowly improving, no sig eosinophilia
stable resp status, wt is slightly up cont lasix today
avoid nephrotoxins, off Toradol(doses 02/11, 02/13, 02/14)
h/h stable at 8.3, microcytic, with Fe sat only 18% , ferritin 960 in acute illness
on Po fe, prn transfusions
follow labs
d/w pt
-
-
Date of Service: February 21, 2024
CC / HPI / ROS
-
Chief Complaint:
KELLIE
History of Present Illness:
Creatinine down to 2.3 but BUN at 92
Hemodynamically stable
On meropenem for sternal wound
no fever, WBC slow to improve, hb up at 8.6
no fever
Review of Systems:
Weights decreasing
Subjectively nonoliguric
Sternal wound
improving neck pain,
no sob
Labs
-
Labs:
WBC 20.4 10^3/uL (4.8-10.8) H 02/21/24 08:56
RBC 3.14 10^6/uL (4.20-5.40) L 02/21/24 08:56
Hgb 8.6 g/dL (12.0-16.0) L 02/21/24 08:56
Hct 25.7 % (37.0-47.0) L 02/21/24 08:56
Plt Count 637 10^3/uL (130-400) H 02/21/24 08:56
Sodium 137 mmol/L (135-145) 02/21/24 08:56
Potassium 4.4 mmol/L (3.5-5.1) 02/21/24 08:56
Chloride 96 mmol/L (98-107) L 02/21/24 08:56
Carbon Dioxide 21 mmol/L (22-30) L 02/21/24 08:56
BUN 92 mg/dl (7-17) H 02/21/24 08:56
Creatinine 2.3 mg/dL (0.6-1.0) H 02/21/24 08:56
eGFR 21.36 02/21/24 08:56
Glucose 272 mg/dl (70-99) H 02/21/24 08:56
Calcium 9.6 mg/dl (8.4-10.2) 02/21/24 08:56
Woa-F-Tuhiadqipvg Pept 6770 pg/ml 02/10/24 18:51
Albumin 3.3 g/dl (3.5-5.0) L 02/10/24 18:51
Physical Exam
-
Vital Signs:
Vital Signs
Temp Pulse Resp BP Pulse Ox
98.2 F 86 16 158/86 97
02/21/24 11:00 02/21/24 11:00 02/21/24 11:00 02/21/24 11:00 02/21/24 11:00
Cardiovascular:: Regular rate and rhythm
Respiratory:: Bilateral: CTA
Lung Excursion:: Normal (decreased BS)
Abdomen:: Nontender and Soft
Extremity Edema:: None: Bilateral:
Jones Catheter: No
[2024-02-21] MEDS: NOVOLOG FLEXPEN 18 UNITS SC (16:02)
[2024-02-21 16:03] LABS: Glucose - Point of Care 269 mg/dl (70-99)
[2024-02-21] MEDS: NOVOLOG FLEXPEN-LOW RESISTANCE 3 UNITS SC (16:03)
[2024-02-21] MEDS: CRESTOR 20 MG PO (16:26)
[2024-02-21] MEDS: ULTRAM 25 MG PO (18:54)
[2024-02-21] MEDS: HEPARIN 5000 UNITS SC (20:40)
[2024-02-21] MEDS: NEURONTIN 300 MG PO (20:41)
[2024-02-21] MEDS: TYLENOL 1000 MG PO (20:43)
[2024-02-21 21:50] LABS: Glucose - Point of Care 403 mg/dl (70-99)
[2024-02-21 22:30] LABS: Glucose 364 mg/dl (70-99)
[2024-02-21] MEDS: MYCOSTATIN ORAL SUSPENSION 5 ML PO (23:22)
[2024-02-21] MEDS: NOVOLOG FLEXPEN 6 UNITS SC (23:24)
[2024-02-22 01:38] LABS: Glucose - Point of Care 319 mg/dl (70-99)
[2024-02-22 04:03] LABS: Glucose - Point of Care 319 mg/dl (70-99)
[2024-02-22 04:05] VITALS: BP 151/86
[2024-02-22 06:00] VITALS: BMI 20.8
[2024-02-22 07:20] VITALS: BP 139/79
[2024-02-22 07:27] LABS: Glucose - Point of Care 265 mg/dl (70-99)
[2024-02-22 07:52] LABS: Hematocrit 23.7 % (37.0-47.0); Hemoglobin 7.9 g/dL (12.0-16.0); Mean Corp Hgb Conc. 33.3 g/dL (33.0-37.0); Mean Corpuscular Hgb 27.3 pg (27.0-31.0); Mean Platelet Volume 8.6 fL (7.4-10.4); Platelet Count 583 10^3/uL (130-400); Red Blood Cell Count 2.89 10^6/uL (4.20-5.40); Red Cell Dist. Width 16.5 % (11.5-14.5); White Blood Cell Count 13.3 10^3/uL (4.8-10.8)
--- NOTE | 2024-02-22 08:11 | W.PN.HOSP.TC ---
Today's Communication/Plan
-
Hopeful for discharge tomorrow tomorrow with improvement in BUN
Assessment / Plan
Assessment / Plan
#Leukocytosis
#Exudative right pleural effusion
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
-Differentials for leukocytosis include parapneumonic effusion versus infected sternal wound
-S/p thoracentesis 02/12, exudative per lights criteria; culture was negative however
-Has had persistently elevated WBC that peaked at 25 and has been downtrending on antibiotics
-Sternal wound cultures positive for pansensitive Pseudomonas; blood cultures here were negative
-CRP/ESR elevated, ID recommends 6 weeks of IV antibiotics for suspected sternal osteomyelitis
-PICC inserted 02/20, possible discharge to [place] tomorrow
#KELLIE on CKD 3B
-Secondary to decompensated heart failure and hypervolemia, cardiorenal syndrome type 1
-Baseline creatinine 1.5; presented with creatinine near 2.2 however back near baseline
-Suspect that her new creatinine baseline is roughly 2.0
-Renal ultrasound shows 4.1 cm right renal cyst. Creatinine 2.1 today, peaked at 2.6
-Appreciate nephrology input, hold Lasix due to rising BUN
-Avoid nephrotoxic drugs/NSAIDs
#Acute on chronic HFrecEF
-History of HFrEF with Takotsubo cardiomyopathy; status post IV diuretic regimen here
-She did have TTE performed yesterday, 02/13/2024, that showed recovery of systolic function (EF 55%)
-Status post IV Lasix, currently on Lasix 20 mg p.o. daily
-Continue GDMT with carvedilol, hydralazine/Imdur
#Edema of left sternoclavicular area
-Evaluated by cardiology, not related to pacemaker leads
-Focal ultrasound negative for acute abnormalities
-Suspect secondary to patient's left shoulder injury that she incurred while being repositioned last week
-Continue to monitor
#Left shoulder calcific tendinitis
-Has complained of left shoulder pain since being repositioned a few days ago
-X-ray without any acute findings, did show calcific tendinitis
-IV Toradol discontinued due to KELLIE, started on prednisone 40 mg p.o. daily 02/18�plan for 7-day burst course
-Continue tramadol as needed
#CAD s/p PCI, CABG (2023)
-Home medications include beta-juan, aspirin, Plavix, high intensity
-Does have significant systolic dysfunction with EF 35%; Recovered EF per TTE here
-No current signs of ACS
#Acute on chronic anemia, due to chronic disease and iron deficiency
-Differentials include occult bleeding, bone marrow process; unlikely hemolysis or nutritional deficiency
-She had an iron panel earlier in hospital stay that was consistent with anemia of chronic disease
-S/p 2 unit PRBC total; hemoglobin responded appropriately with hemoglobin 8.9�9.0 next draws
-Reticulocyte count 1%, anticipated being slightly higher due to her anemia, cannot r/o bone marrow component
#IDDM
-Most recent A1c 6.3%; per family blood sugar has been on the lower side more recently
-Increase Lantus 20 units Qam, 15 units HS, increase NovoLog 24 units AC 3 times daily to cover for steroid-induced hyperglycemia
#Essential hypertension
-Home medications include carvedilol, amlodipine, hydralazine
-No known hypertensive systemic
-Home meds continued with hold parameters
#Recent Sternal and Right LE Graft Donor Site Wound Dehiscence
-Wound care following
-See above for more detail
#H/O Complete Heart Block s/p Pacemaker/ICD
#BMI 19.5 normal
DVT proph: HSQ
Code Status: Full Code
Disposition: [facility] when medically stable
Updated daughter 02/18, 02/19, 02/20, 02/21
Total time spent to see the patient on the floor, examine the patient, review data and lab results, discuss treatment plan with patient, nursing staff around 50 minutes.
Physical Exam
General: Appears debilitated, no acute distress
HEENT: Normocephalic, Atraumatic, EOMI, MMM
Edema/fullness of left supraclavicular area
Respiratory: Bibasilar crackles
Chest wall: Sternal wound dressed
Cardiac: Normal S1/S2, Regular Rate and Rhythm
GI: Soft, Nontender, Nondistended, Normal Bowel Sounds
Extremities: No Clubbing, Cyanosis
Musculoskeletal: Severe weakness of left shoulder with pain
Psych: Calm, Cooperative
Anticipated Discharge: Within 24 hours
Subjective/Interval History
-
Date of Service: February 22, 2024
Patient denies chest pain, denies shortness of breath. No fever, no vomiting. Denies left shoulder pain.
Objective Data
-
Labs:
Laboratory Results
02/21/24 02/22/24
22:03 07:10
WBC 13.3 H
Hgb 7.9 L
Hct 23.7 L
Plt Count 583 H
Sodium Pending
Potassium Pending
Chloride Pending
Carbon Dioxide Pending
BUN Pending
Creatinine Pending
Glucose 364 H Pending
Calcium Pending
Vital Signs:
Vital Signs
Temp Pulse Resp BP Pulse Ox
98.0 F 80 24 151/86 98
02/22/24 04:05 02/22/24 04:05 02/22/24 04:05 02/22/24 04:05 02/22/24 04:05
I&O
02/21/24 02/22/24 02/23/24
06:59 06:59 06:59
Intake Total 600 / 600 1100 / 1100
Output Total 0 / 0
Balance 600 / 600 1100 / 1100
[2024-02-22 08:30] LABS: Blood Urea Nitrogen 102 mg/dl (7-17); Calcium 9.3 mg/dl (8.4-10.2); Carbon Dioxide 24 mmol/L (22-30); Chloride 97 mmol/L (98-107); Estimated Creatinine Clearance 22 ml/min; Glucose 255 mg/dl (70-99); Potassium 4.6 mmol/L (3.5-5.1); Sodium 137 mmol/L (135-145); eGFR 23.82
[2024-02-22] MEDS: DELTASONE 40 MG PO (08:38)
[2024-02-22] MEDS: PLAVIX 75 MG PO (08:38)
[2024-02-22] MEDS: LOW STRENGTH ASPIRIN 81 MG PO (08:38)
[2024-02-22] MEDS: APRESOLINE 50 MG PO ×3 (08:38→21:53)
[2024-02-22] MEDS: COREG 12.5 MG PO ×2 (08:39→21:53)
[2024-02-22] MEDS: VISBIOME 1 CAP PO (08:39)
[2024-02-22] MEDS: IMDUR (EXTENDED RELEASE) 30 MG PO (08:39)
[2024-02-22] MEDS: LASIX 20 MG PO (08:39)
[2024-02-22] MEDS: HEPARIN 5000 UNITS SC ×2 (08:39→21:54)
[2024-02-22] MEDS: NOVOLOG FLEXPEN-LOW RESISTANCE 3 UNITS SC (08:42)
[2024-02-22] MEDS: LIDOCAINE 4% PATCH TOPICAL (08:43)
[2024-02-22] MEDS: MYCOSTATIN ORAL SUSPENSION PO ×4 (08:44→21:44)
[2024-02-22] MEDS: HYDROPHOR 1 APPLIC TOPICAL (08:44)
[2024-02-22] MEDS: SENOKOT-S PO (08:52)
--- NOTE | 2024-02-22 09:28 | CM ---
TT with [facility], requesting info on sternal precautions for rehab.
Per MD, no precautions.
[facility] liaison/PMR MD with concerns re labs and medical stability, TT to MD.
Per [facility] lia[facility], they will accept once medically stable.
PICC line placed 02/22/24.
Plan: [facility] once medically stable.
[2024-02-22] MEDS: LANTUS 0.2 UNITS SC (09:50)
[2024-02-22] MEDS: NOVOLOG FLEXPEN SC ×2 (09:51→11:21)
[2024-02-22] MEDS: MERREM 500 MG IV ×2 (11:21→21:54)
[2024-02-22] MEDS: STERILE WATER FOR INJECTION 10 ML IV ×2 (11:21→21:55)
[2024-02-22] MEDS: FEOSOL 325 MG PO (11:47)
[2024-02-22] MEDS: VITAMIN C 500 MG PO (11:47)
[2024-02-22 11:48] LABS: Glucose - Point of Care 333 mg/dl (70-99)
[2024-02-22] MEDS: NOVOLOG FLEXPEN 22 UNITS SC (11:48)
[2024-02-22] MEDS: NOVOLOG FLEXPEN-LOW RESISTANCE 4 UNITS SC (11:49)
[2024-02-22 12:00] VITALS: BP 137/70
--- NOTE | 2024-02-22 12:33 | VATNOTE ---
PICC line placed for home ABX. Report reading showed tip of catheter in proximal atrium. This VAT RN asked how much needed to be pulled back to make PICC tip cavoatrial junction. Per radiologist, pulling the PICC back 4 cm would make the tip of the
catheter at the CAJ. PICC retracted 4cm.
[2024-02-22 15:07] VITALS: BP 141/71
--- NOTE | 2024-02-22 15:19 | W.PN.NEPH.PH ---
Today's Communication / Plan
-
hold lasix
follow bmp
Assessment/Plan
-
Assessment:
CAD
Sternal wound
KELLIE on CKD3b (1.5)
SOB
HTN
HFrEF, decompensated
Edema
Diabetes mellitus type 2
Leukocytosis
Anemia
PPM
Plan:
KELLIE-cr at 2.3 but BUN climbing to 102
Azotemia could be potentiated by prednisone however she could also have evolving cardiorenal syndrome as weights continue to climb
will hold lasix for azotemia,weights now
Chest x-ray reviewed right lower lobe airspace and effusions
UA with UTI sample, U eosinophils pending, non acute renal US, can not exclude non obst stone
on abx since 02/11, abx(now on meropenem) per ID
leucocytosis slowly improving, no sig eosinophilia
avoid nephrotoxins, off Toradol(doses 02/11, 02/13, 02/14)
anemia worsening and hgb at 7.9, microcytic, with Fe sat only 18% , ferritin 960 in acute illness
follow labs
d/w pt
-
-
Date of Service: February 22, 2024
CC / HPI / ROS
-
Chief Complaint:
KELLIE
History of Present Illness:
Creatinine down to 2.1 but BUN at 102
Hemodynamically stable
On meropenem for sternal wound
no fever, WBC slow to improve, hb up at 8.6
no fever
Review of Systems:
Weights up
Subjectively nonoliguric
Sternal wound
improving neck pain,
no sob
Labs
-
Labs:
WBC 13.3 10^3/uL (4.8-10.8) H 02/22/24 07:10
RBC 2.89 10^6/uL (4.20-5.40) L 02/22/24 07:10
Hgb 7.9 g/dL (12.0-16.0) L 02/22/24 07:10
Hct 23.7 % (37.0-47.0) L 02/22/24 07:10
Plt Count 583 10^3/uL (130-400) H 02/22/24 07:10
Sodium 137 mmol/L (135-145) 02/22/24 07:10
Potassium 4.6 mmol/L (3.5-5.1) 02/22/24 07:10
Chloride 97 mmol/L (98-107) L 02/22/24 07:10
Carbon Dioxide 24 mmol/L (22-30) 02/22/24 07:10
BUN 102 mg/dl (7-17) H* 02/22/24 07:10
Creatinine 2.1 mg/dL (0.6-1.0) H 02/22/24 07:10
eGFR 23.82 02/22/24 07:10
Glucose 255 mg/dl (70-99) H 02/22/24 07:10
Calcium 9.3 mg/dl (8.4-10.2) 02/22/24 07:10
Gbe-P-Xpkobratgmx Pept 6770 pg/ml 02/10/24 18:51
Albumin 3.3 g/dl (3.5-5.0) L 02/10/24 18:51
Physical Exam
-
Vital Signs:
Vital Signs
Temp Pulse Resp BP Pulse Ox
98.3 F 83 16 141/71 94
02/22/24 15:07 02/22/24 15:07 02/22/24 15:07 02/22/24 15:07 02/22/24 15:07
Cardiovascular:: Regular rate and rhythm
Respiratory:: Bilateral: CTA
Lung Excursion:: Normal (decreased BS)
Abdomen:: Nontender and Soft
Extremity Edema:: None: Bilateral:
Jones Catheter: No
[2024-02-22 16:39] LABS: Glucose - Point of Care 214 mg/dl (70-99)
[2024-02-22] MEDS: CRESTOR 20 MG PO (17:03)
[2024-02-22] MEDS: NOVOLOG FLEXPEN-LOW RESISTANCE 2 UNITS SC (17:04)
[2024-02-22] MEDS: NOVOLOG FLEXPEN 24 UNITS SC (17:04)
[2024-02-22 19:30] VITALS: BP 151/84
[2024-02-22 21:22] LABS: Glucose - Point of Care 275 mg/dl (70-99)
[2024-02-22] MEDS: NEURONTIN 300 MG PO (21:53)
[2024-02-22] MEDS: LANTUS 0.15 UNITS SC (21:54)
[2024-02-22] MEDS: SENOKOT-S 1 TABLET PO (21:54)
[2024-02-22 23:41] VITALS: BP 127/73
[2024-02-23] VITALS (7 sets, daily range): BP systolic 134–158; BP diastolic 70–87; PULSE 83; O2SAT 97; BMI 20.6
[2024-02-23 05:30] LABS: Hemoglobin 8.2 g/dL (12.0-16.0); Mean Corp Hgb Conc. 32.8 g/dL (33.0-37.0); Mean Corpuscular Hgb 26.3 pg (27.0-31.0); Mean Corpuscular Volume 80.1 fL (81.0-99.0); Platelet Count 605 10^3/uL (130-400); Red Blood Cell Count 3.12 10^6/uL (4.20-5.40); Red Cell Dist. Width 16.2 % (11.5-14.5); White Blood Cell Count 16.9 10^3/uL (4.8-10.8)
[2024-02-23 05:55] LABS: Blood Urea Nitrogen 110 mg/dl (7-17); Calcium 9.7 mg/dl (8.4-10.2); Carbon Dioxide 27 mmol/L (22-30); Chloride 99 mmol/L (98-107); Estimated Creatinine Clearance 22 ml/min; Glucose 113 mg/dl (70-99); Magnesium 2.5 mg/dl (1.6-2.3); Potassium 4.4 mmol/L (3.5-5.1); Sodium 141 mmol/L (135-145); eGFR 23.82
[2024-02-23 08:20] LABS: Glucose - Point of Care 121 mg/dl (70-99)
[2024-02-23] MEDS: NOVOLOG FLEXPEN-LOW RESISTANCE SC ×2 (08:23→12:00)
[2024-02-23] MEDS: LOW STRENGTH ASPIRIN 81 MG PO (08:26)
[2024-02-23] MEDS: PLAVIX 75 MG PO (08:26)
[2024-02-23] MEDS: DELTASONE 40 MG PO (08:26)
[2024-02-23] MEDS: HEPARIN 5000 UNITS SC ×2 (08:26→21:05)
[2024-02-23] MEDS: VISBIOME 1 CAP PO (08:26)
[2024-02-23] MEDS: HYDROPHOR 1 APPLIC TOPICAL (08:27)
[2024-02-23] MEDS: APRESOLINE 50 MG PO ×3 (08:29→21:04)
[2024-02-23] MEDS: SENOKOT-S 1 TABLET PO ×2 (08:29→21:07)
[2024-02-23] MEDS: IMDUR (EXTENDED RELEASE) 30 MG PO (08:29)
[2024-02-23] MEDS: COREG 12.5 MG PO ×2 (08:29→21:05)
[2024-02-23] MEDS: NOVOLOG FLEXPEN 24 UNITS SC ×2 (08:31→12:20)
[2024-02-23] MEDS: LIDOCAINE 4% PATCH TOPICAL (08:35)
[2024-02-23] MEDS: MYCOSTATIN ORAL SUSPENSION PO ×4 (08:35→21:12)
[2024-02-23] MEDS: LANTUS 0.2 UNITS SC (09:27)
--- NOTE | 2024-02-23 09:38 | W.PN.HOSP.TC ---
Today's Communication/Plan
-
Check stool guaiac
Assessment / Plan
Assessment / Plan
#Leukocytosis
#Exudative right pleural effusion
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
-Differentials for leukocytosis include parapneumonic effusion versus infected sternal wound
-S/p thoracentesis 02/12, exudative per lights criteria; culture was negative however
-Has had persistently elevated WBC that peaked at 25 and has been downtrending on antibiotics
-Sternal wound cultures positive for pansensitive Pseudomonas; blood cultures here were negative
-CRP/ESR elevated, ID recommends 6 weeks of IV antibiotics for suspected sternal osteomyelitis
-PICC inserted 02/20, discharge to [facility] when medically stable
#KELLIE on CKD 3B
-Secondary to decompensated heart failure and hypervolemia, cardiorenal syndrome type 1
-Baseline creatinine 1.5; presented with creatinine near 2.2 however back near baseline
-Suspect that her new creatinine baseline is roughly 2.0
-Renal ultrasound shows 4.1 cm right renal cyst. Creatinine 2.1 today, peaked at 2.6
-Appreciate nephrology input, hold Lasix due to rising BUN. Check stool guaic
-Avoid nephrotoxic drugs/NSAIDs
#Acute on chronic HFrecEF
-History of HFrEF with Takotsubo cardiomyopathy; status post IV diuretic regimen here
-She did have TTE performed yesterday, 02/13/2024, that showed recovery of systolic function (EF 55%)
-Status post IV Lasix, holding lasix due to rising BUN
-Continue GDMT with carvedilol, hydralazine/Imdur
#Edema of left sternoclavicular area
-Evaluated by cardiology, not related to pacemaker leads
-Focal ultrasound negative for acute abnormalities
-Suspect secondary to patient's left shoulder injury that she incurred while being repositioned last week
-Continue to monitor
#Left shoulder calcific tendinitis
-Has complained of left shoulder pain since being repositioned a few days ago
-X-ray without any acute findings, did show calcific tendinitis
-IV Toradol discontinued due to KELLIE, started on prednisone 40 mg p.o. daily 02/18�plan for 7-day burst course
-Continue tramadol as needed
#CAD s/p PCI, CABG (2023)
-Home medications include beta-juan, aspirin, Plavix, high intensity
-Does have significant systolic dysfunction with EF 35%; Recovered EF per TTE here
-No current signs of ACS
#Acute on chronic anemia, due to chronic disease and iron deficiency
-Differentials include occult bleeding, bone marrow process; unlikely hemolysis or nutritional deficiency
-She had an iron panel earlier in hospital stay that was consistent with anemia of chronic disease
-S/p 2 unit PRBC total; hemoglobin responded appropriately with hemoglobin 8.9�9.0 next draws
-Reticulocyte count 1%, anticipated being slightly higher due to her anemia, cannot r/o bone marrow component
#IDDM
-Most recent A1c 6.3%; per family blood sugar has been on the lower side more recently
-Lantus 15 units Qam, 15 units HS, NovoLog 22 units AC 3 times daily to cover for steroid-induced hyperglycemia
#Essential hypertension
-Home medications include carvedilol, amlodipine, hydralazine
-No known hypertensive systemic
-Home meds continued with hold parameters
#Recent Sternal and Right LE Graft Donor Site Wound Dehiscence
-Wound care following
-See above for more detail
#H/O Complete Heart Block s/p Pacemaker/ICD
#BMI 19.5 normal
DVT proph: HSQ
Code Status: Full Code
Disposition: [facility] when medically stable
Updated daughter 02/18, 02/19, 02/20, 02/21, 02/22
Total time spent to see the patient on the floor, examine the patient, review data and lab results, discuss treatment plan with patient, nursing staff around 51 minutes.
Physical Exam
General: Appears debilitated, no acute distress
HEENT: Normocephalic, Atraumatic, EOMI, MMM
Edema/fullness of left supraclavicular area
Respiratory: Bibasilar crackles
Chest wall: Sternal wound dressed
Cardiac: Normal S1/S2, Regular Rate and Rhythm
GI: Soft, Nontender, Nondistended, Normal Bowel Sounds
Extremities: No Clubbing, Cyanosis
Musculoskeletal: Severe weakness of left shoulder with pain
Psych: Calm, Cooperative
Anticipated Discharge: 24 - 48 hours
Subjective/Interval History
-
Date of Service: February 23, 2024
Patient reports dark stool since starting iron. No black or no bloody stools. No sternal pain. No left shoulder pain. No fever, no vomiting.
Objective Data
-
Labs:
Laboratory Results
02/23/24
05:06
WBC 16.9 H
Hgb 8.2 L
Hct 25.0 L
Plt Count 605 H
Sodium 141
Potassium 4.4
Chloride 99
Carbon Dioxide 27
BUN 110 H*
Creatinine 2.1 H
Glucose 113 H
Calcium 9.7
Vital Signs:
Vital Signs
Temp Pulse Resp BP Pulse Ox
98.1 F 81 14 154/87 97
02/23/24 03:45 02/23/24 03:45 02/23/24 03:45 02/23/24 08:29 02/23/24 03:45
I&O
02/22/24 02/23/24 02/24/24
06:59 06:59 06:59
Intake Total 1100 / 1100 960 / 960
Output Total 450 / 450
Balance 1100 / 1100 510 / 510
[2024-02-23] MEDS: STERILE WATER FOR INJECTION 10 ML IV ×2 (10:49→21:08)
[2024-02-23] MEDS: MERREM 500 MG IV ×2 (10:50→21:07)
[2024-02-23 11:51] LABS: Glucose - Point of Care 113 mg/dl (70-99)
[2024-02-23] MEDS: VITAMIN C 500 MG PO (12:19)
[2024-02-23] MEDS: FEOSOL 325 MG PO (12:19)
--- NOTE | 2024-02-23 12:25 | W.PN.NEPH.PH ---
Today's Communication / Plan
-
follow labs, prn lasix
Assessment/Plan
-
Assessment:
CAD
Sternal wound
KELLIE on CKD3b (1.5)
SOB
HTN
HFrEF, decompensated
Edema
Diabetes mellitus type 2
Leukocytosis
Anemia
PPM
Plan:
KELLIE-cr better at 2.1 but BUN climbing to 110, check bladder scan
Azotemia could be potentiated by prednisone however she could also have evolving cardiorenal syndrome as weights continue to climb
will hold lasix for azotemia,weights better today, ok to resume prn
UA with UTI sample, U eosinophils ordered but not done, non acute renal US, can not exclude non obst stone
on abx since 02/11, abx(now on meropenem) per ID
leucocytosis up, no sig eosinophilia
avoid nephrotoxins, off Toradol(doses 02/11, 02/13, 02/14)
anemia hb labile pattern at 8.2, microcytic, with Fe sat only 18% , ferritin 960 in acute illness
check stool to r/o bleed
follow labs
d/w pt
-
-
Date of Service: February 23, 2024
CC / HPI / ROS
-
Chief Complaint:
KELLIE
History of Present Illness:
Creatinine down to 2.1 but BUN at 110
Hemodynamically stable
On meropenem for sternal wound
no fever, WBCup today, hb up at 8.2
no fever
Review of Systems:
Weights down today
Subjectively nonoliguric
Sternal wound
improving neck pain,
no sob
Labs
-
Labs:
WBC 16.9 10^3/uL (4.8-10.8) H 02/23/24 05:06
RBC 3.12 10^6/uL (4.20-5.40) L 02/23/24 05:06
Hgb 8.2 g/dL (12.0-16.0) L 02/23/24 05:06
Hct 25.0 % (37.0-47.0) L 02/23/24 05:06
Plt Count 605 10^3/uL (130-400) H 02/23/24 05:06
Sodium 141 mmol/L (135-145) 02/23/24 05:06
Potassium 4.4 mmol/L (3.5-5.1) 02/23/24 05:06
Chloride 99 mmol/L (98-107) 02/23/24 05:06
Carbon Dioxide 27 mmol/L (22-30) 02/23/24 05:06
BUN 110 mg/dl (7-17) H* 02/23/24 05:06
Creatinine 2.1 mg/dL (0.6-1.0) H 02/23/24 05:06
eGFR 23.82 02/23/24 05:06
Glucose 113 mg/dl (70-99) H 02/23/24 05:06
Calcium 9.7 mg/dl (8.4-10.2) 02/23/24 05:06
Ndx-X-Womtvxsluct Pept 6770 pg/ml 02/10/24 18:51
Albumin 3.3 g/dl (3.5-5.0) L 02/10/24 18:51
Physical Exam
-
Vital Signs:
Vital Signs
Temp Pulse Resp BP Pulse Ox
97.8 F 81 16 154/87 98
02/23/24 07:00 02/23/24 07:00 02/23/24 07:00 02/23/24 08:29 02/23/24 07:00
Cardiovascular:: Regular rate and rhythm
Respiratory:: Bilateral: CTA
Lung Excursion:: Normal
Abdomen:: Nontender and Soft
Extremity Edema:: +1: Bilateral:
Jones Catheter: No
--- NOTE | 2024-02-23 13:54 | CM ---
Per hospitalist, [facility] unable to accept pt today due to high BUN.
Per Brian/[facility], pt can be re-assessed on Monday for admission pending labs
Plan: [facility] when medically stable
--- NOTE | 2024-02-23 14:29 | W.PN.ID1 ---
Date of Service
Date of Service: February 23, 2024
Today's Communication
Continue antibiotics.
Assessment / Plan
Leukocytosis
Sternal wound
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
Pleural effusion
- appears to be exudative given total protein, LDH and triglycerides
- cultures negative to date.
Anemia
KELLIE on CKD
HTN
Dyslipidemia
CAD; Hx CABG 10/2023
DM
CKD
Recommendations:
Wound cultures 02/14: Pseudomonas aeruginosa
ESR and crp elevated
Continue with meropenem (day #7) to complete a 6-week course.
Continue to monitor white count and temperature curve, along with cr. / est. CrCl.
����������������������������������������������������������
Chief Complaint
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
Subjective / Review of Systems
Review of Systems: No Fever and No Chills
Vital Signs / Physical Exam
Vital Signs
Vital Signs
Temp Pulse Resp BP Pulse Ox
97.4 F 84 16 147/80 98
02/23/24 11:00 02/23/24 11:00 02/23/24 11:00 02/23/24 11:00 02/23/24 11:00
Physical Exam
Constitutional: No Acute Distress and Comfortable
Head: Normocephalic
Eyes: Sclera Anicteric
Cardiovascular: Regular Rate and S1/S2; Negative S3/S4
Pulmonary: Clear and Non Labored
Gastrointestinal: Soft, Non Tender and Non Distended
Extremities: Negative Cyanosis or Erythema
Skin: Warm and Dry
Neurological: Awake, Alert and Oriented
Objective Data
Lab Data
Lab Results
02/23/24 05:06
02/23/24 05:06
ESR > 145 mm/hour (0-20) H 02/19/24 06:32
Estimated Creat Clear 22 ml/min 02/23/24 05:06
Total Bilirubin 0.2 mg/dl (0.2-1.3) 02/10/24 18:51
AST 21 U/L (14-36) 02/10/24 18:51
ALT 20 U/L (0-35) 02/10/24 18:51
Alkaline Phosphatase 78 U/L (38-126) 02/10/24 18:51
C-Reactive Protein 201.30 mg/L (0.0-10.00) H 02/19/24 06:32
Most recent labs reviewed.
Micro Results:
02/15/24 16:43 Wound Culture - Final
Chest - Unspecified Pseudomonas aeruginosa
Gram Stain - Final
02/11/24 12:57 Blood Culture - Final
Blood/Venous No Growth - Final Report
02/13/24 08:10 Body Fluid Culture - Final
Pleural Fluid No Growth After 72 Hours
Gram Stain - Final
Wound/abscess/other Cult Final 02/17/24-0837
Few Pseudomonas aeruginosa
Organism 1 Pseudomonas aeruginosa
1. Pseudomonas aeruginosa
M.I.C. RX
--------- ---
Aztreonam <=4 S
Cefepime 4 S
Ceftazidime 4 S
Ciprofloxacin <=0.25 S
Meropenem 2 S
Piperacillin/Tazobactam <=8 S
Tobramycin <=2 S
Imaging:
02/17/2024 CT chest : Moderate soft tissue edema anterior and posterior to the sternum, No CT evidence for wire fracture or sternal dehiscence, enlargement of a moderate right pleural effusion, RLL airspace consolidation
02/15/2024 CXR (portable): Small to moderate right pleural effusion without significant change. Cannot exclude tiny left pleural effusion. No pneumothorax noted. Pulmonary vascularity is top normal. Please see full dictation for additional
detail. Film personally viewed.
[2024-02-23 16:50] LABS: Glucose - Point of Care 207 mg/dl (70-99)
[2024-02-23] MEDS: NOVOLOG FLEXPEN 22 UNITS SC (17:15)
[2024-02-23] MEDS: NOVOLOG FLEXPEN-LOW RESISTANCE 2 UNITS SC (17:15)
[2024-02-23] MEDS: CRESTOR 20 MG PO (17:31)
[2024-02-23] MEDS: TYLENOL 1000 MG PO (17:39)
[2024-02-23] MEDS: FLUSH (NSS) 2 FLUSH IV (21:10)
[2024-02-23] MEDS: NEURONTIN 300 MG PO (21:11)
[2024-02-23 23:40] LABS: Glucose - Point of Care 141 mg/dl (70-99)
[2024-02-23] MEDS: LANTUS 0.15 UNITS SC (23:44)
[2024-02-24 03:31] VITALS: BP 141/80
[2024-02-24 06:00] VITALS: BMI 20.8
[2024-02-24 07:00] VITALS: BP 160/97
[2024-02-24 08:03] LABS: Glucose - Point of Care 85 mg/dl (70-99)
[2024-02-24 08:27] LABS: Blood Urea Nitrogen 120 mg/dl (7-17); Calcium 9.8 mg/dl (8.4-10.2); Carbon Dioxide 26 mmol/L (22-30); Chloride 100 mmol/L (98-107); Estimated Creatinine Clearance 24 ml/min; Glucose 64 mg/dl (70-99); Potassium 4.4 mmol/L (3.5-5.1); Sodium 141 mmol/L (135-145); eGFR 26.86
[2024-02-24 09:29] LABS: Hematocrit 27.5 % (37.0-47.0); Hemoglobin 9.1 g/dL (12.0-16.0); Mean Corp Hgb Conc. 33.1 g/dL (33.0-37.0); Mean Corpuscular Volume 81.6 fL (81.0-99.0); Mean Platelet Volume 8.1 fL (7.4-10.4); Platelet Count 671 10^3/uL (130-400); Red Blood Cell Count 3.37 10^6/uL (4.20-5.40); Red Cell Dist. Width 16.5 % (11.5-14.5); White Blood Cell Count 18.9 10^3/uL (4.8-10.8)
[2024-02-24] MEDS: NOVOLOG FLEXPEN-LOW RESISTANCE SC ×3 (09:30→17:31)
[2024-02-24] MEDS: LOW STRENGTH ASPIRIN 81 MG PO (09:31)
[2024-02-24] MEDS: MERREM 500 MG IV ×2 (09:31→20:49)
[2024-02-24] MEDS: IMDUR (EXTENDED RELEASE) 30 MG PO (09:31)
[2024-02-24] MEDS: COREG 12.5 MG PO ×2 (09:32→20:50)
[2024-02-24] MEDS: STERILE WATER FOR INJECTION 10 ML IV ×2 (09:32→20:49)
[2024-02-24] MEDS: APRESOLINE 50 MG PO ×3 (09:32→20:50)
[2024-02-24] MEDS: MYCOSTATIN ORAL SUSPENSION 5 ML PO (09:32)
[2024-02-24] MEDS: PLAVIX 75 MG PO (09:33)
[2024-02-24] MEDS: LANTUS 0.15 UNITS SC (09:38)
[2024-02-24] MEDS: VISBIOME 1 CAP PO (09:38)
[2024-02-24] MEDS: SENOKOT-S 1 TABLET PO ×2 (09:38→20:53)
[2024-02-24] MEDS: LIDOCAINE 4% PATCH 1 PATCH TOPICAL (09:39)
[2024-02-24] MEDS: DELTASONE 40 MG PO (09:39)
[2024-02-24] MEDS: HEPARIN 5000 UNITS SC ×2 (09:40→20:53)
--- NOTE | 2024-02-24 09:44 | W.PN.HOSP.TC ---
Today's Communication/Plan
-
Hold prednisone
Decrease insulin
Trend BUN
Assessment / Plan
Assessment / Plan
#Leukocytosis
#Exudative right pleural effusion
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
-Differentials for leukocytosis include parapneumonic effusion versus infected sternal wound
-S/p thoracentesis 02/12, exudative per lights criteria; culture was negative however
-Has had persistently elevated WBC that peaked at 25 and has been downtrending on antibiotics
-Sternal wound cultures positive for pansensitive Pseudomonas; blood cultures here were negative
-CRP/ESR elevated, ID recommends 6 weeks of IV antibiotics for suspected sternal osteomyelitis
-PICC inserted 02/20, discharge to [facility] when BUN improved
#KELLIE on CKD 3B
-Secondary to decompensated heart failure and hypervolemia, cardiorenal syndrome type 1
-Baseline creatinine 1.5; presented with creatinine near 2.2 however back near baseline
-Suspect that her new creatinine baseline is roughly 2.0
-Renal ultrasound shows 4.1 cm right renal cyst. Creatinine 2.1 today, peaked at 2.6
-Appreciate nephrology input, hold Lasix due to rising BUN. Stool guaic neg
-Rising BUN may be due to prednisone, will stop today and trend BUN
-Avoid nephrotoxic drugs/NSAIDs
#Acute on chronic HFrecEF
-History of HFrEF with Takotsubo cardiomyopathy; status post IV diuretic regimen here
-She did have TTE performed yesterday, 02/13/2024, that showed recovery of systolic function (EF 55%)
-Status post IV Lasix, holding lasix due to rising BUN
-Continue GDMT with carvedilol, hydralazine/Imdur
#Edema of left sternoclavicular area
-Evaluated by cardiology, not related to pacemaker leads
-Focal ultrasound negative for acute abnormalities
-Suspect secondary to patient's left shoulder injury that she incurred while being repositioned last week
-Continue to monitor
#Left shoulder calcific tendinitis
-Has complained of left shoulder pain since being repositioned a few days ago
-X-ray without any acute findings, did show calcific tendinitis
-IV Toradol discontinued due to KELLIE, started on prednisone 40 mg p.o. daily 02/18�plan for 6-day burst course, last dose today 02/23
-Continue tramadol as needed
#CAD s/p PCI, CABG (2023)
-Home medications include beta-juan, aspirin, Plavix, high intensity
-Does have significant systolic dysfunction with EF 35%; Recovered EF per TTE here
-No current signs of ACS
#Acute on chronic anemia, due to chronic disease and iron deficiency
-Differentials include occult bleeding, bone marrow process; unlikely hemolysis or nutritional deficiency
-She had an iron panel earlier in hospital stay that was consistent with anemia of chronic disease
-S/p 2 unit PRBC total; hemoglobin responded appropriately with hemoglobin 8.9�9.0 next draws
-Reticulocyte count 1%, anticipated being slightly higher due to her anemia, cannot r/o bone marrow component
#IDDM
-Most recent A1c 6.3%; per family blood sugar has been on the lower side more recently
-Carefully monitor and reduce insulin as steroids are being stopped today
#Essential hypertension
-Home medications include carvedilol, amlodipine, hydralazine
-No known hypertensive systemic
-Home meds continued with hold parameters
#Recent Sternal and Right LE Graft Donor Site Wound Dehiscence
-Wound care following
-See above for more detail
#H/O Complete Heart Block s/p Pacemaker/ICD
#BMI 19.5 normal
DVT proph: HSQ
Code Status: Full Code
Disposition: [facility] when medically stable
Updated daughter 02/18, 02/19, 02/20, 02/21, 02/22
Total time spent to see the patient on the floor, examine the patient, review data and lab results, discuss treatment plan with patient, nursing staff around 50 minutes.
Physical Exam
General: Appears debilitated, no acute distress
HEENT: Normocephalic, Atraumatic, EOMI, MMM
Edema/fullness of left supraclavicular area
Respiratory: Bibasilar crackles
Chest wall: Sternal wound dressed
Cardiac: Normal S1/S2, Regular Rate and Rhythm
GI: Soft, Nontender, Nondistended, Normal Bowel Sounds
Extremities: No Clubbing, Cyanosis
+ Mild bilateral lower extremity edema noted
Musculoskeletal: Severe weakness of left shoulder with pain
Psych: Calm, Cooperative
Anticipated Discharge: 24 - 48 hours
Subjective/Interval History
-
Date of Service: February 23, 2024
Patient denies sternal pain, denies left shoulder pain. No shortness of breath, no cough. No fever, no vomiting.
Objective Data
-
Labs:
Laboratory Results
02/23/24
05:06
WBC 16.9 H
Hgb 8.2 L
Hct 25.0 L
Plt Count 605 H
Sodium 141
Potassium 4.4
Chloride 99
Carbon Dioxide 27
BUN 110 H*
Creatinine 2.1 H
Glucose 113 H
Calcium 9.7
Vital Signs:
Vital Signs
Temp Pulse Resp BP Pulse Ox
97.4 F 84 16 147/80 98
02/23/24 11:00 02/23/24 11:00 02/23/24 11:00 02/23/24 11:00 02/23/24 11:00
I&O
02/22/24 02/23/24 02/24/24
06:59 06:59 06:59
Intake Total 1100 / 1100 960 / 960
Output Total 450 / 450 250 / 250
Balance 1100 / 1100 510 / 510 -250 / -250
[2024-02-24] MEDS: HYDROPHOR 1 APPLIC TOPICAL (09:45)
[2024-02-24] MEDS: NOVOLOG FLEXPEN 20 UNITS SC ×2 (09:59→12:22)
[2024-02-24] MEDS: NOVOLOG FLEXPEN SC (10:54)
[2024-02-24 11:00] VITALS: BP 147/85
[2024-02-24 11:55] LABS: Glucose - Point of Care 149 mg/dl (70-99)
[2024-02-24] MEDS: FEOSOL 325 MG PO (12:23)
[2024-02-24] MEDS: MYCOSTATIN ORAL SUSPENSION PO ×3 (12:23→20:50)
[2024-02-24] MEDS: VITAMIN C 500 MG PO (12:23)
[2024-02-24 15:00] VITALS: BP 123/68
[2024-02-24 16:41] LABS: Glucose - Point of Care 114 mg/dl (70-99)
--- NOTE | 2024-02-24 17:03 | W.PN.NEPH.PH ---
Addendum entered and electronically signed by Chana Knight MD 02/24/24 17:10:
diet adjusted for LE edema low salt, FR 48 ounces/day
Original Note:
Today's Communication / Plan
-
off steroids and follow lab s
Assessment/Plan
-
Assessment:
CAD
Sternal wound
KELLIE on CKD3b (1.5)
SOB
HTN
HFrEF, decompensated
Edema
Diabetes mellitus type 2
Leukocytosis
Anemia
PPM
Plan:
KELLIE-cr better at 1.9 but BUN climbing to 120, check bladder scan
Azotemia could be potentiated by prednisone however she could also have evolving cardiorenal syndrome
will hold lasix for azotemia,weights over all stable, ok to resume prn
UA with UTI sample, U eosinophils ordered but not done, non acute renal US, can not exclude non obst stone
on abx since 02/11, abx(now on meropenem) per ID
leucocytosis up, no sig eosinophilia
avoid nephrotoxins, off Toradol(doses 02/11, 02/13, 02/14)
anemia hb labile pattern at 9.1, microcytic, with Fe sat only 18% , ferritin 960 in acute illness
neg stool heme , d/c prednisone today
LE edema is mostly dependant, need to elevate leg and TEDs
follow labs
d/w pt and family
-
-
Date of Service: February 24, 2024
CC / HPI / ROS
-
Chief Complaint:
KELLIE
History of Present Illness:
Creatinine down to 1.9 but BUN up at 120
Hemodynamically stable
On meropenem for sternal wound
no fever, WBCup today, hb up at 9.2
no fever
wt over all no change in last few days
Review of Systems:
Subjectively nonoliguric
Sternal wound
improving neck pain,
no sob
Labs
-
Labs:
WBC 18.9 10^3/uL (4.8-10.8) H 02/24/24 07:53
RBC 3.37 10^6/uL (4.20-5.40) L 02/24/24 07:53
Hgb 9.1 g/dL (12.0-16.0) L 02/24/24 07:53
Hct 27.5 % (37.0-47.0) L 02/24/24 07:53
Plt Count 671 10^3/uL (130-400) H 02/24/24 07:53
Sodium 141 mmol/L (135-145) 02/24/24 07:53
Potassium 4.4 mmol/L (3.5-5.1) 02/24/24 07:53
Chloride 100 mmol/L (98-107) 02/24/24 07:53
Carbon Dioxide 26 mmol/L (22-30) 02/24/24 07:53
BUN 120 mg/dl (7-17) H* 02/24/24 07:53
Creatinine 1.9 mg/dL (0.6-1.0) H 02/24/24 07:53
eGFR 26.86 02/24/24 07:53
Glucose 64 mg/dl (70-99) L 02/24/24 07:53
Calcium 9.8 mg/dl (8.4-10.2) 02/24/24 07:53
Ory-N-Qdpxxyeewsn Pept 6770 pg/ml 02/10/24 18:51
Albumin 3.3 g/dl (3.5-5.0) L 02/10/24 18:51
Physical Exam
-
Vital Signs:
Vital Signs
Temp Pulse Resp BP Pulse Ox
97.4 F 86 16 123/68 97
02/24/24 11:00 02/24/24 15:35 02/24/24 11:00 02/24/24 15:35 02/24/24 11:00
Cardiovascular:: Regular rate and rhythm
Respiratory:: Bilateral: CTA
Lung Excursion:: Normal
Extremity Edema:: +1: Bilateral:
Jones Catheter: No
[2024-02-24] MEDS: NOVOLOG FLEXPEN 18 UNITS SC (17:30)
[2024-02-24] MEDS: CRESTOR 20 MG PO (17:31)
[2024-02-24 19:39] VITALS: BP 141/71
[2024-02-24] MEDS: NEURONTIN 300 MG PO (20:54)
[2024-02-24] MEDS: FLUSH (NSS) 2 FLUSH IV (20:56)
[2024-02-24] MEDS: ULTRAM 25 MG PO (21:03)
[2024-02-24 21:17] LABS: Glucose - Point of Care 137 mg/dl (70-99)
[2024-02-24 23:22] VITALS: BP 142/83
[2024-02-24] MEDS: LANTUS 0.14 UNITS SC (23:44)
[2024-02-25 03:04] VITALS: BP 159/99
[2024-02-25 06:00] VITALS: BMI 21.0
[2024-02-25 07:47] LABS: Calcium 9.1 mg/dl (8.4-10.2); Carbon Dioxide 26 mmol/L (22-30); Chloride 98 mmol/L (98-107); Estimated Creatinine Clearance 26 ml/min; Glucose 68 mg/dl (70-99); Potassium 4.9 mmol/L (3.5-5.1); Sodium 139 mmol/L (135-145); eGFR 28.66
[2024-02-25 07:54] VITALS: BP 160/93
[2024-02-25 07:54] LABS: Blood Urea Nitrogen 122 mg/dl (7-17); Hematocrit 24.3 % (37.0-47.0); Mean Corp Hgb Conc. 32.9 g/dL (33.0-37.0); Mean Corpuscular Hgb 26.6 pg (27.0-31.0); Mean Corpuscular Volume 80.7 fL (81.0-99.0); Mean Platelet Volume 8.6 fL (7.4-10.4); Platelet Count 651 10^3/uL (130-400); Red Blood Cell Count 3.01 10^6/uL (4.20-5.40); Red Cell Dist. Width 16.5 % (11.5-14.5); White Blood Cell Count 18.8 10^3/uL (4.8-10.8)
--- NOTE | 2024-02-25 08:11 | W.PN.HOSP.TC ---
Today's Communication/Plan
-
Trend BUN
Discharge to [facility] when BUN improved
Assessment / Plan
Assessment / Plan
#Leukocytosis
#Exudative right pleural effusion
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
-Differentials for leukocytosis include parapneumonic effusion versus infected sternal wound
-S/p thoracentesis 02/12, exudative per lights criteria; culture was negative however
-Has had persistently elevated WBC that peaked at 25 and has been downtrending on antibiotics
-Sternal wound cultures positive for pansensitive Pseudomonas; blood cultures here were negative
-CRP/ESR elevated, ID recommends 6 weeks of IV antibiotics for suspected sternal osteomyelitis
-PICC inserted 02/20, discharge to [facility] when BUN improved
#KELLIE on CKD 3B
-Secondary to decompensated heart failure and hypervolemia, cardiorenal syndrome type 1
-Baseline creatinine 1.5; presented with creatinine near 2.2 however back near baseline
-Suspect that her new creatinine baseline is roughly 2.0
-Renal ultrasound shows 4.1 cm right renal cyst. Creatinine 2.1 today, peaked at 2.6
-Appreciate nephrology input, hold Lasix due to rising BUN. Stool guaic neg
-Rising BUN may be due to prednisone, stopped 02/23, trend BUN
-Avoid nephrotoxic drugs/NSAIDs
#Acute on chronic HFrecEF
-History of HFrEF with Takotsubo cardiomyopathy; status post IV diuretic regimen here
-She did have TTE performed yesterday, 02/13/2024, that showed recovery of systolic function (EF 55%)
-Status post IV Lasix, holding lasix due to rising BUN
-Continue GDMT with carvedilol, hydralazine/Imdur
#Edema of left sternoclavicular area
-Evaluated by cardiology, not related to pacemaker leads
-Focal ultrasound negative for acute abnormalities
-Suspect secondary to patient's left shoulder injury that she incurred while being repositioned last week
-Continue to monitor
#Left shoulder calcific tendinitis
-Has complained of left shoulder pain since being repositioned a few days ago
-X-ray without any acute findings, did show calcific tendinitis
-IV Toradol discontinued due to KELLIE, started on prednisone 40 mg p.o. daily 02/18�plan for 6-day burst course, last dose today 02/23
-Continue tramadol as needed
#CAD s/p PCI, CABG (2023)
-Home medications include beta-juan, aspirin, Plavix, high intensity
-Does have significant systolic dysfunction with EF 35%; Recovered EF per TTE here
-No current signs of ACS
#Acute on chronic anemia, due to chronic disease and iron deficiency
-Differentials include occult bleeding, bone marrow process; unlikely hemolysis or nutritional deficiency
-She had an iron panel earlier in hospital stay that was consistent with anemia of chronic disease
-S/p 2 unit PRBC total; hemoglobin responded appropriately with hemoglobin 8.9�9.0 next draws
-Reticulocyte count 1%, anticipated being slightly higher due to her anemia, cannot r/o bone marrow component
#IDDM
-Most recent A1c 6.3%; per family blood sugar has been on the lower side more recently
-Carefully monitor and reduce insulin as steroids stopped 02/23
#Essential hypertension
-Home medications include carvedilol, amlodipine, hydralazine
-No known hypertensive systemic
-Home meds continued with hold parameters
#Recent Sternal and Right LE Graft Donor Site Wound Dehiscence
-Wound care following
-See above for more detail
#H/O Complete Heart Block s/p Pacemaker/ICD
#BMI 19.5 normal
DVT proph: HSQ
Code Status: Full Code
Disposition: [facility] when medically stable
Updated daughter 02/18, 02/19, 02/20, 02/21, 02/22
Total time spent to see the patient on the floor, examine the patient, review data and lab results, discuss treatment plan with patient, nursing staff around 51 minutes.
Physical Exam
General: Appears debilitated, no acute distress
HEENT: Normocephalic, Atraumatic, EOMI, MMM
Edema/fullness of left supraclavicular area
Respiratory: Bibasilar crackles
Chest wall: Sternal wound dressed
Cardiac: Normal S1/S2, Regular Rate and Rhythm
GI: Soft, Nontender, Nondistended, Normal Bowel Sounds
Extremities: No Clubbing, Cyanosis
+ Mild bilateral lower extremity edema noted
Musculoskeletal: Severe weakness of left shoulder with pain
Psych: Calm, Cooperative
Anticipated Discharge: 24 - 48 hours
Subjective/Interval History
-
Date of Service: February 25, 2024
Patient denies sternal pain. Denies shoulder pain. No chest pain, no shortness of breath. No fever, no vomiting.
Objective Data
-
Labs:
Laboratory Results
02/25/24
05:31
WBC 18.8 H
Hgb 8.0 L
Hct 24.3 L
Plt Count 651 H
Sodium 139
Potassium 4.9
Chloride 98
Carbon Dioxide 26
BUN 122 H*
Creatinine 1.8 H
Glucose 68 L
Calcium 9.1
Vital Signs:
Vital Signs
Temp Pulse Resp BP Pulse Ox
97.9 F 80 16 160/93 97
02/25/24 07:54 02/25/24 07:54 02/25/24 07:54 02/25/24 07:54 02/25/24 07:54
I&O
02/24/24 02/25/24 02/26/24
06:59 06:59 06:59
Intake Total 1200 / 1200 1200 / 1200
Output Total 250 / 250
Balance 950 / 950 1200 / 1200
[2024-02-25 08:15] LABS: Glucose - Point of Care 100 mg/dl (70-99)
--- NOTE | 2024-02-25 08:37 | CM ---
CM reviewed chart, plan for [facility] to re-assess patient for [facility] 02/26/24. CM will continue to follow for all discharge planning needs.
Plan; [facility] to re-eval Monday.
[2024-02-25] MEDS: NOVOLOG FLEXPEN 18 UNITS SC (08:55)
[2024-02-25] MEDS: COREG 12.5 MG PO ×2 (08:56→19:52)
[2024-02-25] MEDS: NOVOLOG FLEXPEN-LOW RESISTANCE SC (08:56)
[2024-02-25] MEDS: VISBIOME 1 CAP PO (08:57)
[2024-02-25] MEDS: SENOKOT-S 1 TABLET PO ×2 (08:57→19:54)
[2024-02-25] MEDS: APRESOLINE 50 MG PO ×3 (08:57→19:51)
[2024-02-25] MEDS: HEPARIN 5000 UNITS SC ×2 (08:57→19:52)
[2024-02-25] MEDS: IMDUR (EXTENDED RELEASE) 30 MG PO (08:57)
[2024-02-25] MEDS: LOW STRENGTH ASPIRIN 81 MG PO (08:57)
[2024-02-25] MEDS: PLAVIX 75 MG PO (08:57)
[2024-02-25] MEDS: LIDOCAINE 4% PATCH TOPICAL (08:58)
[2024-02-25] MEDS: MYCOSTATIN ORAL SUSPENSION PO ×4 (08:59→21:23)
[2024-02-25] MEDS: STERILE WATER FOR INJECTION 10 ML IV ×2 (09:03→21:23)
[2024-02-25] MEDS: LANTUS 0.1 UNITS SC (09:03)
[2024-02-25] MEDS: MERREM 500 MG IV ×2 (09:03→21:23)
[2024-02-25 11:46] LABS: Glucose - Point of Care 197 mg/dl (70-99)
[2024-02-25 12:05] VITALS: BP 135/82
[2024-02-25] MEDS: HYDROPHOR 1 APPLIC TOPICAL (12:17)
[2024-02-25] MEDS: NOVOLOG FLEXPEN 12 UNITS SC ×2 (12:19→16:36)
[2024-02-25] MEDS: NOVOLOG FLEXPEN-LOW RESISTANCE 1 UNITS SC ×2 (12:20→16:37)
[2024-02-25] MEDS: VITAMIN C 500 MG PO (12:30)
[2024-02-25] MEDS: FEOSOL 325 MG PO (12:30)
--- NOTE | 2024-02-25 13:10 | W.PN.NEPH.PH ---
Today's Communication / Plan
-
follow labs
Assessment/Plan
-
Assessment:
CAD
Sternal wound
KELLIE on CKD3b (1.5)
SOB
HTN
HFrEF, decompensated
Edema
Diabetes mellitus type 2
Leukocytosis
Anemia
PPM
Plan:
KELLIE-cr better at 1.8 but BUN climbing to 122, follow bladder scan
Azotemia could be potentiated by prednisone however she could also have evolving cardiorenal syndrome
will hold lasix for azotemia,weights over all stable, ok to resume prn
UA with UTI sample, non acute renal US, can not exclude non obst stone
on abx since 02/11, abx(now on meropenem) per ID
leucocytosis up, no sig eosinophilia
avoid nephrotoxins, off Toradol
anemia hb labile pattern at 9.1, microcytic, with Fe sat only 18% , ferritin 960 in acute illness
neg stool heme , d/c prednisone 02/23
LE edema is mostly dependant, need to elevate leg and TEDs
follow labs
d/w pt and family
-
-
Date of Service: February 25, 2024
CC / HPI / ROS
-
Chief Complaint:
KELLIE
History of Present Illness:
Creatinine down to 1.8 but BUN up at 122
Hemodynamically stable
On meropenem for sternal wound
no fever, WBChigh, , hb low at 8
no fever
wt uptrending
Review of Systems:
Subjectively nonoliguric
Sternal wound
no neck pain,
no sob
Labs
-
Labs:
WBC 18.8 10^3/uL (4.8-10.8) H 02/25/24 05:31
RBC 3.01 10^6/uL (4.20-5.40) L 02/25/24 05:31
Hgb 8.0 g/dL (12.0-16.0) L 02/25/24 05:31
Hct 24.3 % (37.0-47.0) L 02/25/24 05:31
Plt Count 651 10^3/uL (130-400) H 02/25/24 05:31
Sodium 139 mmol/L (135-145) 02/25/24 05:31
Potassium 4.9 mmol/L (3.5-5.1) 02/25/24 05:31
Chloride 98 mmol/L (98-107) 02/25/24 05:31
Carbon Dioxide 26 mmol/L (22-30) 02/25/24 05:31
BUN 122 mg/dl (7-17) H* 02/25/24 05:31
Creatinine 1.8 mg/dL (0.6-1.0) H 02/25/24 05:31
eGFR 28.66 02/25/24 05:31
Glucose 68 mg/dl (70-99) L 02/25/24 05:31
Calcium 9.1 mg/dl (8.4-10.2) 02/25/24 05:31
Nil-I-Jkrhlxvbycp Pept 6770 pg/ml 02/10/24 18:51
Albumin 3.3 g/dl (3.5-5.0) L 02/10/24 18:51
Physical Exam
-
Vital Signs:
Vital Signs
Temp Pulse Resp BP Pulse Ox
97.7 F 85 18 135/82 97
02/25/24 12:05 02/25/24 12:05 02/25/24 12:05 02/25/24 12:05 02/25/24 08:41
Cardiovascular:: Regular rate and rhythm
Respiratory:: Bilateral: CTA
Lung Excursion:: Normal
Abdomen:: Nontender and Soft
Extremity Edema:: +1: Bilateral: (trace)
Jones Catheter: No
[2024-02-25 16:22] LABS: Glucose - Point of Care 153 mg/dl (70-99)
[2024-02-25] MEDS: CRESTOR 20 MG PO (16:37)
[2024-02-25 19:35] VITALS: BP 162/86
[2024-02-25 21:10] LABS: Glucose - Point of Care 91 mg/dl (70-99)
[2024-02-25] MEDS: LANTUS 0.04 UNITS SC (21:22)
[2024-02-25] MEDS: ULTRAM 25 MG PO (21:23)
[2024-02-25] MEDS: NEURONTIN 300 MG PO (21:23)
[2024-02-25 22:56] VITALS: BP 150/86
--- NOTE | 2024-02-25 22:57 | PTCARENOTE ---
Pt c/o feeling SOB and chest tightness. POX on RA 97%. Pt OOB to BSC with assist x 1 and then asked to sit up in the chair. O2 2L applied for pt's comfort. Pt sitting in chair at present, comfortable. Will continue to monitor.
[2024-02-26] VITALS (8 sets, daily range): BP systolic 99–142; BP diastolic 56–83; BMI 21.2
[2024-02-26 05:56] LABS: Hematocrit 27.3 % (37.0-47.0); Mean Corpuscular Hgb 27.4 pg (27.0-31.0); Mean Platelet Volume 8.5 fL (7.4-10.4); Platelet Count 656 10^3/uL (130-400); Red Blood Cell Count 3.29 10^6/uL (4.20-5.40); Red Cell Dist. Width 16.9 % (11.5-14.5)
[2024-02-26 06:18] LABS: Calcium 9.6 mg/dl (8.4-10.2); Carbon Dioxide 27 mmol/L (22-30); Chloride 99 mmol/L (98-107); Estimated Creatinine Clearance 28 ml/min; Glucose 72 mg/dl (70-99); Potassium 5.2 mmol/L (3.5-5.1); Sodium 138 mmol/L (135-145)
[2024-02-26 06:27] LABS: Blood Urea Nitrogen 118 mg/dl (7-17)
[2024-02-26 08:41] LABS: Glucose - Point of Care 71 mg/dl (70-99)
[2024-02-26] MEDS: NOVOLOG FLEXPEN-LOW RESISTANCE SC ×2 (08:57→13:28)
[2024-02-26] MEDS: MYCOSTATIN ORAL SUSPENSION PO ×3 (10:10→17:33)
[2024-02-26] MEDS: PLAVIX 75 MG PO (10:13)
[2024-02-26] MEDS: COREG 12.5 MG PO ×2 (10:13→20:58)
[2024-02-26] MEDS: VISBIOME 1 CAP PO (10:13)
[2024-02-26] MEDS: LOW STRENGTH ASPIRIN 81 MG PO (10:13)
[2024-02-26] MEDS: APRESOLINE 50 MG PO ×2 (10:13→20:58)
[2024-02-26] MEDS: SENOKOT-S 1 TABLET PO ×2 (10:14→20:58)
[2024-02-26] MEDS: LIDOCAINE 4% PATCH TOPICAL (10:14)
[2024-02-26] MEDS: HEPARIN SC (10:16)
[2024-02-26] MEDS: STERILE WATER FOR INJECTION 10 ML IV ×2 (10:21→20:58)
[2024-02-26] MEDS: MERREM 500 MG IV ×2 (10:21→20:59)
[2024-02-26] MEDS: IMDUR (EXTENDED RELEASE) 30 MG PO (10:21)
[2024-02-26] MEDS: HYDROPHOR 1 APPLIC TOPICAL (11:16)
--- NOTE | 2024-02-26 11:45 | W.PN.HOSP.TC ---
Today's Communication/Plan
-
Trend BMP for BUN
Avoid steroid and nephrotoxins
[facility] when BUN improved
Assessment / Plan
Assessment / Plan
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
#Leukocytosis
#Exudative right pleural effusion
-Differentials for leukocytosis include parapneumonic effusion versus infected sternal wound
-S/p thoracentesis 02/12, exudative per lights criteria; culture was negative however
-Has had persistently elevated WBC that peaked at 25 and has been downtrending on antibiotics
-Sternal wound cultures positive for pansensitive Pseudomonas; blood cultures here were negative
-CRP/ESR elevated, ID recommends 6 weeks of IV antibiotics for suspected sternal osteomyelitis
-PICC inserted 02/20, discharge to [facility] when BUN improved
#KELLIE on CKD 3B
#Azotemia secondary to steroid use
-Secondary to decompensated heart failure and hypervolemia, cardiorenal syndrome type 1
-Baseline creatinine 1.5; presented with creatinine near 2.2 however back near baseline
-Suspect that her new creatinine baseline is roughly 2.0
-Renal ultrasound shows 4.1 cm right renal cyst. Creatinine 2.1 today, peaked at 2.6
-Appreciate nephrology input, hold Lasix due to rising BUN. Stool guaic neg
-Rising BUN may be due to prednisone, stopped 02/23, trend BUN
-Avoid nephrotoxic drugs/NSAIDs
#Acute on chronic HFrecEF
-History of HFrEF with Takotsubo cardiomyopathy; status post IV diuretic regimen here
-She did have TTE performed yesterday, 02/13/2024, that showed recovery of systolic function (EF 55%)
-Status post IV Lasix, holding lasix due to rising BUN
-Continue GDMT with carvedilol, hydralazine/Imdur
#Edema of left sternoclavicular area
-Evaluated by cardiology, not related to pacemaker leads
-Focal ultrasound negative for acute abnormalities
-Suspect secondary to patient's left shoulder injury that she incurred while being repositioned last week
-Improved
#Left shoulder calcific tendinitis
-Has complained of left shoulder pain since being repositioned a few days ago
-X-ray without any acute findings, did show calcific tendinitis
-IV Toradol discontinued due to KELLIE, started on prednisone 40 mg p.o. daily 02/18�plan for 6-day burst course, last dose today 02/23
-Continue tramadol as needed, avoid further steroid due to azotemia
#CAD s/p PCI, CABG (2023)
-Home medications include beta-juan, aspirin, Plavix, high intensity
-Does have significant systolic dysfunction with EF 35%; Recovered EF per TTE here
-No current signs of ACS
#Acute on chronic anemia, due to chronic disease and iron deficiency
-Differentials include occult bleeding, bone marrow process; unlikely hemolysis or nutritional deficiency
-She had an iron panel earlier in hospital stay that was consistent with anemia of chronic disease
-S/p 2 unit PRBC total; hemoglobin responded appropriately with hemoglobin 8.9�9.0 next draws
-Reticulocyte count 1%, anticipated being slightly higher due to her anemia, cannot r/o bone marrow component
#IDDM
-Most recent A1c 6.3%; per family blood sugar has been on the lower side more recently
-Home insulin regimen has been de-escalated to Lantus 4 units daily; BG < 200 consistently
-Carefully monitor and reduce insulin as needed; steroids stopped 02/23
#Essential hypertension
-Home medications include carvedilol, amlodipine, hydralazine
-No known hypertensive systemic
-Home meds continued with hold parameters
#Recent Sternal and Right LE Graft Donor Site Wound Dehiscence
-Wound care following
-See above for more detail
#H/O Complete Heart Block s/p Pacemaker/ICD
#BMI 21.2
DVT proph: HSQ
Code Status: Full Code
Disposition: [facility] when medically stable
Daughter at bedside for update
Anticipated Discharge: 24 - 48 hours
Subjective/Interval History
-
Date of Service: February 26, 2024
Seen and examined at the bedside. No acute events reported overnight. AFVSS this morning.
BUN has started to downtrend, down to 118 as of this morning. Holding steroid and nephrotoxic agents. Lasix on hold. Leukocyte elevated from recent steroid
She denies any acute complaints. Denies chest pain, dyspnea, fevers or chills, GI issues, urinary issues, bleeding or bruising, paresthesias or weakness. Minimal left shoulder pain today
Objective Data
-
Labs:
Laboratory Results
02/26/24
05:23
WBC 24.0 H
Hgb 9.0 L
Hct 27.3 L
Plt Count 656 H
Sodium 138
Potassium 5.2 H
Chloride 99
Carbon Dioxide 27
BUN 118 H*
Creatinine 1.7 H
Glucose 72
Calcium 9.6
Vital Signs:
Vital Signs
Temp Pulse Resp BP Pulse Ox
97.7 F 94 16 132/83 98
02/26/24 07:00 02/26/24 07:00 02/26/24 07:00 02/26/24 07:00 02/26/24 07:00
I&O
02/25/24 02/26/24 02/27/24
06:59 06:59 06:59
Intake Total 1200 / 1200 712 / 712
Output Total 250 / 250
Balance 1200 / 1200 462 / 462
Review of Systems
-
History Source: Patient and Family
All other systems: Reviewed and negative
Physical Exam
-
General: Well Nourished, No Apparent Distress and Comfortable
HEENT: Normocephalic, Atraumatic and Moist Mucous Membranes
Respiratory: Crackles (Bibasilar) and Non Labored Respirations; Negative Wheezes, Rhonchi or Accessory Resp Muscle Use
Cardiac: Regular Rhythm and S1/S2; Negative Murmur, Rub, JVD or Gallop
GI: Soft, Nontender, Nondistended and Normal Bowel Sounds
Musculoskeletal: No Clubbing, No Cyanosis, No Edema and Other (Reduced ROM to left shoulder, minimal pain)
Skin: Warm and Dry; Negative Rash
Neuro: AO x 3, Nonfocal/Grossly Intact and Central Nerve's Intact
Psych: Calm
Data Reviewed
-
Labs: Labs Reviewed by me, Discussed with Physician (Physiatry), Discussed with Patient and Discussed with Family
--- NOTE | 2024-02-26 11:51 | W.PN.NEPH.PH ---
Today's Communication / Plan
-
lasix
Assessment/Plan
-
Assessment:
CAD
Sternal wound
KELLIE on CKD3b (1.5)
SOB
HTN
HFrEF, decompensated
Edema
Diabetes mellitus type 2
Leukocytosis
Anemia
PPM
Plan:
follow BMP
restart lasix 20mg daily po
continue abx per ID
-
-
Date of Service: February 26, 2024
CC / HPI / ROS
-
Chief Complaint:
KELLIE
History of Present Illness:
Creatinine down to 1.7, BUN remains high
Hemodynamically stable
On meropenem for sternal wound
no fever
weight rising
Review of Systems:
Subjectively nonoliguric
Sternal wound
no neck pain,
no sob
Labs
-
Labs:
WBC 24.0 10^3/uL (4.8-10.8) H 02/26/24 05:23
RBC 3.29 10^6/uL (4.20-5.40) L 02/26/24 05:23
Hgb 9.0 g/dL (12.0-16.0) L 02/26/24 05:23
Hct 27.3 % (37.0-47.0) L 02/26/24 05:23
Plt Count 656 10^3/uL (130-400) H 02/26/24 05:23
Sodium 138 mmol/L (135-145) 02/26/24 05:23
Potassium 5.2 mmol/L (3.5-5.1) H 02/26/24 05:23
Chloride 99 mmol/L (98-107) 02/26/24 05:23
Carbon Dioxide 27 mmol/L (22-30) 02/26/24 05:23
BUN 118 mg/dl (7-17) H* 02/26/24 05:23
Creatinine 1.7 mg/dL (0.6-1.0) H 02/26/24 05:23
eGFR 30.70 02/26/24 05:23
Glucose 72 mg/dl (70-99) 02/26/24 05:23
Calcium 9.6 mg/dl (8.4-10.2) 02/26/24 05:23
Xtq-D-Nxtuawxqstu Pept 6770 pg/ml 02/10/24 18:51
Albumin 3.3 g/dl (3.5-5.0) L 02/10/24 18:51
Physical Exam
-
Vital Signs:
Vital Signs
Temp Pulse Resp BP Pulse Ox
97.7 F 94 16 132/83 98
02/26/24 07:00 02/26/24 07:00 02/26/24 07:00 02/26/24 07:00 02/26/24 07:00
Cardiovascular:: Regular rate and rhythm
Respiratory:: Bilateral: Coarse
Lung Excursion:: Normal
Abdomen:: Nontender and Soft
Extremity Edema:: +1: Bilateral:
[2024-02-26 12:03] LABS: Glucose - Point of Care 89 mg/dl (70-99)
--- NOTE | 2024-02-26 14:36 | W.PN.ID1 ---
Date of Service
Date of Service: February 26, 2024
Today's Communication
Continue antibiotics.
Assessment / Plan
Leukocytosis
- suspect steroid effect
Sternal wound ; hx CABG
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
Pleural effusion
- appears to be exudative given total protein, LDH and triglycerides
- cultures negative to date.
Anemia
KELLIE on CKD
HTN
Dyslipidemia
CAD; Hx CABG 10/2023
DM
CKD
Recommendations:
Wound cultures 02/14: Pseudomonas aeruginosa
ESR and crp elevated
Continue with meropenem (day #10) to complete a 6-week course. (through 03/30/24)
Continue to monitor white count / temperature curve / Cr. / est. CrCl.
����������������������������������������������������������
Chief Complaint
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
Subjective / Review of Systems
Review of Systems: No Fever and No Chills
Vital Signs / Physical Exam
Vital Signs
Vital Signs
Temp Pulse Resp BP Pulse Ox
97.7 F 94 16 132/83 98
02/26/24 07:00 02/26/24 07:00 02/26/24 07:00 02/26/24 07:00 02/26/24 07:00
Physical Exam
Constitutional: No Acute Distress, Comfortable, Chronically Ill and Non-toxic
Head: Normocephalic
Eyes: Sclera Anicteric
Cardiovascular: Regular Rate and S1/S2; Negative S3/S4
Pulmonary: Clear and Non Labored
Gastrointestinal: Soft, Non Tender and Non Distended
Extremities: Negative Cyanosis or Erythema
Skin: Warm and Dry
Wound: Other (Sternal wound dressed.)
Neurological: Awake, Alert and Oriented
Objective Data
Lab Data
Lab Results
02/26/24 05:23
02/26/24 05:23
ESR > 145 mm/hour (0-20) H 02/19/24 06:32
Estimated Creat Clear 28 ml/min 02/26/24 05:23
Total Bilirubin 0.2 mg/dl (0.2-1.3) 02/10/24 18:51
AST 21 U/L (14-36) 02/10/24 18:51
ALT 20 U/L (0-35) 02/10/24 18:51
Alkaline Phosphatase 78 U/L (38-126) 02/10/24 18:51
C-Reactive Protein 201.30 mg/L (0.0-10.00) H 02/19/24 06:32
Most recent labs reviewed.
Micro Results:
02/15/24 16:43 Wound Culture - Final
Chest - Unspecified Pseudomonas aeruginosa
Gram Stain - Final
02/11/24 12:57 Blood Culture - Final
Blood/Venous No Growth - Final Report
02/13/24 08:10 Body Fluid Culture - Final
Pleural Fluid No Growth After 72 Hours
Gram Stain - Final
Wound/abscess/other Cult Final 02/17/24-37
Few Pseudomonas aeruginosa
Organism 1 Pseudomonas aeruginosa
1. Pseudomonas aeruginosa
M.I.C. RX
--------- ---
Aztreonam <=4 S
Cefepime 4 S
Ceftazidime 4 S
Ciprofloxacin <=0.25 S
Meropenem 2 S
Piperacillin/Tazobactam <=8 S
Tobramycin <=2 S
Imaging:
02/17/2024 CT chest : Moderate soft tissue edema anterior and posterior to the sternum, No CT evidence for wire fracture or sternal dehiscence, enlargement of a moderate right pleural effusion, RLL airspace consolidation
02/15/2024 CXR (portable): Small to moderate right pleural effusion without significant change. Cannot exclude tiny left pleural effusion. No pneumothorax noted. Pulmonary vascularity is top normal. Please see full dictation for additional
detail. Film personally viewed.
[2024-02-26] MEDS: APRESOLINE PO (15:03)
[2024-02-26] MEDS: VITAMIN C 500 MG PO (15:03)
[2024-02-26] MEDS: FEOSOL 325 MG PO (15:03)
[2024-02-26] MEDS: LASIX 20 MG PO (15:03)
--- NOTE | 2024-02-26 15:38 | CM ---
Hospitalist requested CM to make outreach to [facility] to determine at what BUN level would they be willing to accept pt as it has been improving
CM spoke w/ Brian Sneed/[facility] who stated the physician, Dr. Castelan Why would determine that once he reviews pt's labs or hospitalist can reach out to him.
Per hospitalist, pt's labs have to significantly improve before [facility] can accept
Plan: [facility] when medically stable
[2024-02-26 17:01] LABS: Glucose - Point of Care 151 mg/dl (70-99)
[2024-02-26] MEDS: TYLENOL 1000 MG PO (17:32)
[2024-02-26] MEDS: CRESTOR 20 MG PO (17:32)
[2024-02-26] MEDS: NOVOLOG FLEXPEN-LOW RESISTANCE 1 UNITS SC (17:33)
[2024-02-26] MEDS: ULTRAM 25 MG PO (20:57)
[2024-02-26] MEDS: MYCOSTATIN ORAL SUSPENSION 5 ML PO (20:57)
[2024-02-26] MEDS: NEURONTIN 300 MG PO (20:58)
[2024-02-26 21:12] LABS: Glucose - Point of Care 150 mg/dl (70-99)
[2024-02-26] MEDS: LANTUS 0.04 UNITS SC (21:14)
[2024-02-27] VITALS (8 sets, daily range): BP systolic 122–145; BP diastolic 62–82; PULSE 91; O2SAT 96–97; BMI 20.9
[2024-02-27 05:10] LABS: Hematocrit 23.4 % (37.0-47.0); Hemoglobin 7.7 g/dL (12.0-16.0); Mean Corp Hgb Conc. 32.9 g/dL (33.0-37.0); Mean Corpuscular Hgb 27.3 pg (27.0-31.0); Mean Platelet Volume 8.5 fL (7.4-10.4); Platelet Count 515 10^3/uL (130-400); Red Blood Cell Count 2.82 10^6/uL (4.20-5.40); Red Cell Dist. Width 17.3 % (11.5-14.5); White Blood Cell Count 17.7 10^3/uL (4.8-10.8)
[2024-02-27 05:37] LABS: Blood Urea Nitrogen 120 mg/dl (7-17); Calcium 9.3 mg/dl (8.4-10.2); Carbon Dioxide 27 mmol/L (22-30); Chloride 101 mmol/L (98-107); Estimated Creatinine Clearance 28 ml/min; Glucose 68 mg/dl (70-99); Sodium 142 mmol/L (135-145)
[2024-02-27 07:31] LABS: Glucose - Point of Care 100 mg/dl (70-99)
[2024-02-27] MEDS: NOVOLOG FLEXPEN-LOW RESISTANCE SC (08:40)
[2024-02-27] MEDS: APRESOLINE 50 MG PO ×3 (08:40→20:56)
[2024-02-27] MEDS: COREG 12.5 MG PO ×2 (08:40→20:56)
[2024-02-27] MEDS: HYDROPHOR 1 APPLIC TOPICAL (08:41)
[2024-02-27] MEDS: IMDUR (EXTENDED RELEASE) 30 MG PO (08:45)
[2024-02-27] MEDS: LASIX 20 MG PO (08:46)
[2024-02-27] MEDS: LIDOCAINE 4% PATCH TOPICAL (08:46)
[2024-02-27] MEDS: MYCOSTATIN ORAL SUSPENSION PO ×4 (08:47→21:06)
[2024-02-27] MEDS: SENOKOT-S 1 TABLET PO ×2 (08:47→20:56)
[2024-02-27] MEDS: PLAVIX 75 MG PO (08:47)
[2024-02-27] MEDS: LOW STRENGTH ASPIRIN 81 MG PO (08:47)
[2024-02-27] MEDS: VISBIOME 1 CAP PO (08:47)
[2024-02-27] MEDS: STERILE WATER FOR INJECTION 10 ML IV ×2 (09:02→20:58)
[2024-02-27] MEDS: MERREM 500 MG IV ×2 (09:02→20:57)
--- NOTE | 2024-02-27 10:34 | W.PN.HOSP.TC ---
Today's Communication/Plan
-
Speak with nephrology about volume status, consideration for light IVF
Trend daily BMP, avoid NSAIDs and steroid
Trend CBC, DVT prophylaxis with SCDs
Assessment / Plan
Assessment / Plan
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
#Leukocytosis
#Exudative right pleural effusion
-Differentials for leukocytosis include parapneumonic effusion versus infected sternal wound
-S/p thoracentesis 02/12, exudative per lights criteria; culture was negative however
-Has had persistently elevated WBC that peaked at 25 and has been downtrending on antibiotics
-Sternal wound cultures positive for pansensitive Pseudomonas; blood cultures here were negative
-CRP/ESR elevated, ID recommends 6 weeks of IV antibiotics for suspected sternal osteomyelitis
-Leukocytosis downtrending; was on steroids previously which increased them via demargination
-PICC inserted 02/20, discharge to [facility] when BUN improved
#KELLIE on CKD 3B
#Azotemia secondary to steroid use
-Secondary to decompensated heart failure and hypervolemia, cardiorenal syndrome type 1
-Baseline creatinine 1.5; presented with creatinine near 2.2 however back near baseline
-Suspect that her new creatinine baseline is roughly 1.7-2.0; creatinine peaked at 2.6 here
-Rising BUN may be due to prednisone, stopped 02/23, trend BUN
-Avoid nephrotoxic drugs/NSAIDs
-Consider light judicious IVF to improve BUN
#Acute on chronic HFrecEF
-History of HFrEF with Takotsubo cardiomyopathy; status post IV diuretic regimen here
-She did have TTE performed yesterday, 02/13/2024, that showed recovery of systolic function (EF 55%)
-Status post IV Lasix, holding lasix due to rising BUN
-Continue GDMT with carvedilol, hydralazine/Imdur
-Seems close to euvolemia though volume status difficult to assess
#Edema of left sternoclavicular area
-Evaluated by cardiology, not related to pacemaker leads
-Focal ultrasound negative for acute abnormalities
-Suspect secondary to patient's left shoulder injury that she incurred while being repositioned last week
-Improved
#Left shoulder calcific tendinitis
-Has complained of left shoulder pain since being repositioned a few days ago
-X-ray without any acute findings, did show calcific tendinitis
-IV Toradol discontinued due to KELLIE, started on prednisone 40 mg p.o. daily 02/18�plan for 6-day burst course, last dose today 02/23
-Continue tramadol as needed, avoid further steroid due to azotemia
#CAD s/p PCI, CABG (2023)
-Home medications include beta-juan, aspirin, Plavix, high intensity
-Does have significant systolic dysfunction with EF 35%; Recovered EF per TTE here
-No current signs of ACS
#Acute on chronic anemia, due to chronic disease and iron deficiency
-Differentials include occult bleeding, bone marrow process; unlikely hemolysis or nutritional deficiency
-She had an iron panel earlier in hospital stay that was consistent with anemia of chronic disease
-S/p 2 unit PRBC total; hemoglobin responded appropriately with hemoglobin 8.9�9.0 next draws
-Reticulocyte count 1%, anticipated being slightly higher due to her anemia, cannot r/o bone marrow component
-Hemoglobin down to 7.7 today, had bleeding with heparin administration
-Will continue to trend CBC
#IDDM
-Most recent A1c 6.3%; per family blood sugar has been on the lower side more recently
-Home insulin regimen has been de-escalated to Lantus 4 units daily; BG < 200 consistently
-Carefully monitor and reduce insulin as needed; steroids stopped 02/23
#Essential hypertension
-Home medications include carvedilol, amlodipine, hydralazine
-No known hypertensive systemic
-Home meds continued with hold parameters
#Recent Sternal and Right LE Graft Donor Site Wound Dehiscence
-Wound care following
-See above for more detail
#H/O Complete Heart Block s/p Pacemaker/ICD
#BMI 21.2
DVT proph: HSQ
Code Status: Full Code
Disposition: [facility] when medically stable
Daughter at bedside for update
Anticipated Discharge: 24 - 48 hours
Subjective/Interval History
-
Date of Service: February 27, 2024
Seen and examined at the bedside. No acute events reported overnight. AFVSS this morning
Labs this morning show BUN at 120, creatinine stable at 1.7. Hemoglobin did drop to 7.7, has had bleeding with heparin administration and it was discontinued yesterday.
She denies any chest pain, dyspnea, fevers or chills, GI issues, urinary issues, bleeding or bruising, paresthesias or weakness.
Objective Data
-
Labs:
Laboratory Results
02/27/24
04:47
WBC 17.7 H
Hgb 7.7 L
Hct 23.4 L
Plt Count 515 H D
Sodium 142
Potassium 5.0
Chloride 101
Carbon Dioxide 27
BUN 120 H*
Creatinine 1.7 H
Glucose 68 L
Calcium 9.3
Vital Signs:
Vital Signs
Temp Pulse Resp BP Pulse Ox
97.6 F 87 18 145/82 97
02/27/24 07:00 02/27/24 07:00 02/27/24 07:00 02/27/24 07:00 02/27/24 08:40
I&O
02/26/24 02/27/24 02/28/24
06:59 06:59 06:59
Intake Total 712 / 712 1440 / 1440
Output Total 250 / 250
Balance 462 / 462 1440 / 1440
Review of Systems
-
History Source: Patient
All other systems: Reviewed and negative
Physical Exam
-
General: No Apparent Distress, Comfortable and Other (Frail-appearing)
HEENT: Normocephalic, Atraumatic and Moist Mucous Membranes
Respiratory: Crackles (Bibasilar) and Non Labored Respirations; Negative Wheezes, Rhonchi or Accessory Resp Muscle Use
Cardiac: Regular Rhythm and S1/S2; Negative Murmur, Rub, JVD or Gallop
GI: Soft, Nontender, Nondistended and Normal Bowel Sounds
Musculoskeletal: No Clubbing, No Cyanosis and Other (Trace nonpitting edema of distal lower extremities)
Skin: Warm and Dry; Negative Rash
Neuro: AO x 3, Nonfocal/Grossly Intact and Central Nerve's Intact
Psych: Calm
Data Reviewed
-
Labs: Labs Reviewed by me, Discussed with Patient and Discussed with Family
[2024-02-27] MEDS: VITAMIN C 500 MG PO (11:11)
[2024-02-27] MEDS: FEOSOL 325 MG PO (11:11)
[2024-02-27 12:16] LABS: Glucose - Point of Care 203 mg/dl (70-99)
[2024-02-27] MEDS: NOVOLOG FLEXPEN-LOW RESISTANCE 2 UNITS SC ×2 (12:23→17:04)
--- NOTE | 2024-02-27 12:36 | W.PN.NEPH.PH ---
Today's Communication / Plan
-
follow BMP
Assessment/Plan
-
Assessment:
CAD
Sternal wound
KELLIE on CKD3b (1.5)
SOB
HTN
HFrEF, decompensated
Edema
Diabetes mellitus type 2
Leukocytosis
Anemia
PPM
Plan:
follow BMP
continue lasix 20mg daily po
continue abx per ID
hopefully BUN has plateaued
relax K restriction
-
-
Date of Service: February 27, 2024
CC / HPI / ROS
-
Chief Complaint:
KELLIE
History of Present Illness:
Creatinine down to 1.7 stable
BUN 120 stable
Hemodynamically stable
On meropenem for sternal wound
no fever
Review of Systems:
Subjectively nonoliguric
Sternal wound
no neck pain,
no sob
Labs
-
Labs:
WBC 17.7 10^3/uL (4.8-10.8) H 02/27/24 04:47
RBC 2.82 10^6/uL (4.20-5.40) L 02/27/24 04:47
Hgb 7.7 g/dL (12.0-16.0) L 02/27/24 04:47
Hct 23.4 % (37.0-47.0) L 02/27/24 04:47
Plt Count 515 10^3/uL (130-400) H D 02/27/24 04:47
Sodium 142 mmol/L (135-145) 02/27/24 04:47
Potassium 5.0 mmol/L (3.5-5.1) 02/27/24 04:47
Chloride 101 mmol/L (98-107) 02/27/24 04:47
Carbon Dioxide 27 mmol/L (22-30) 02/27/24 04:47
BUN 120 mg/dl (7-17) H* 02/27/24 04:47
Creatinine 1.7 mg/dL (0.6-1.0) H 02/27/24 04:47
eGFR 30.70 02/27/24 04:47
Glucose 68 mg/dl (70-99) L 02/27/24 04:47
Calcium 9.3 mg/dl (8.4-10.2) 02/27/24 04:47
Hsd-P-Ccrnkceogwm Pept 6770 pg/ml 02/10/24 18:51
Albumin 3.3 g/dl (3.5-5.0) L 02/10/24 18:51
Physical Exam
-
Vital Signs:
Vital Signs
Temp Pulse Resp BP Pulse Ox
97.6 F 87 18 145/82 97
02/27/24 07:00 02/27/24 07:00 02/27/24 07:00 02/27/24 07:00 02/27/24 08:40
Cardiovascular:: Regular rate and rhythm
Respiratory:: Bilateral: CTA
Lung Excursion:: Normal
Abdomen:: Nontender and Soft
Bowel Sounds:: Normal
Extremity Edema:: +1: Bilateral:
--- NOTE | 2024-02-27 14:44 | W.PN.ID1 ---
Date of Service
Date of Service: February 27, 2024
Today's Communication
Continue meropenem.
Assessment / Plan
Leukocytosis - trending down
- suspect steroid effect
Sternal wound ; hx CABG
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
Pleural effusion
- appears to be exudative given total protein, LDH and triglycerides
- cultures negative to date.
Anemia
KELLIE on CKD
HTN
Dyslipidemia
CAD; Hx CABG 10/2023
DM
CKD
Recommendations:
Wound cultures 02/14: Pseudomonas aeruginosa
ESR and crp elevated
Continue with meropenem (day #11) to complete a 6-week course. (through 03/30/24)
Continue to monitor white count / temperature curve / Cr. / est. CrCl.
����������������������������������������������������������
Chief Complaint
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
Subjective / Review of Systems
No pain. Doing OK.
Vital Signs / Physical Exam
Vital Signs
Vital Signs
Temp Pulse Resp BP Pulse Ox
97.7 F 85 16 140/75 97
02/27/24 11:00 02/27/24 11:00 02/27/24 11:00 02/27/24 11:00 02/27/24 11:00
Physical Exam
Constitutional: No Acute Distress and Comfortable
Pulmonary: Other (Decreased BS)
Gastrointestinal: Soft, Non Tender, Non Distended and Normal Bowel Sounds
Objective Data
Lab Data
Lab Results
02/27/24 04:47
02/27/24 04:47
ESR > 145 mm/hour (0-20) H 02/19/24 06:32
Estimated Creat Clear 28 ml/min 02/27/24 04:47
Total Bilirubin 0.2 mg/dl (0.2-1.3) 02/10/24 18:51
AST 21 U/L (14-36) 02/10/24 18:51
ALT 20 U/L (0-35) 02/10/24 18:51
Alkaline Phosphatase 78 U/L (38-126) 02/10/24 18:51
C-Reactive Protein 201.30 mg/L (0.0-10.00) H 02/19/24 06:32
Most recent labs reviewed.
Micro Results:
02/15/24 16:43 Wound Culture - Final
Chest - Unspecified Pseudomonas aeruginosa
Gram Stain - Final
02/11/24 12:57 Blood Culture - Final
Blood/Venous No Growth - Final Report
02/13/24 08:10 Body Fluid Culture - Final
Pleural Fluid No Growth After 72 Hours
Gram Stain - Final
Wound/abscess/other Cult Final 02/17/24-0837
Few Pseudomonas aeruginosa
Organism 1 Pseudomonas aeruginosa
1. Pseudomonas aeruginosa
M.I.C. RX
--------- ---
Aztreonam <=4 S
Cefepime 4 S
Ceftazidime 4 S
Ciprofloxacin <=0.25 S
Meropenem 2 S
Piperacillin/Tazobactam <=8 S
Tobramycin <=2 S
Imaging:
02/17/2024 CT chest : Moderate soft tissue edema anterior and posterior to the sternum, No CT evidence for wire fracture or sternal dehiscence, enlargement of a moderate right pleural effusion, RLL airspace consolidation
02/15/2024 CXR (portable): Small to moderate right pleural effusion without significant change. Cannot exclude tiny left pleural effusion. No pneumothorax noted. Pulmonary vascularity is top normal. Please see full dictation for additional
detail. Film personally viewed.
[2024-02-27 16:51] LABS: Glucose - Point of Care 227 mg/dl (70-99)
[2024-02-27] MEDS: CRESTOR 20 MG PO (17:03)
[2024-02-27] MEDS: NEURONTIN 300 MG PO (20:56)
[2024-02-27] MEDS: TYLENOL 1000 MG PO (20:57)
[2024-02-27] MEDS: LANTUS 0.04 UNITS SC (21:21)
[2024-02-27 21:22] LABS: Glucose - Point of Care 215 mg/dl (70-99)
[2024-02-28 03:43] VITALS: BP 122/72
[2024-02-28 05:38] LABS: Hematocrit 23.1 % (37.0-47.0); Hemoglobin 7.5 g/dL (12.0-16.0); Mean Corp Hgb Conc. 32.5 g/dL (33.0-37.0); Mean Corpuscular Hgb 26.5 pg (27.0-31.0); Mean Corpuscular Volume 81.6 fL (81.0-99.0); Mean Platelet Volume 8.8 fL (7.4-10.4); Platelet Count 504 10^3/uL (130-400); Red Blood Cell Count 2.83 10^6/uL (4.20-5.40); Red Cell Dist. Width 17.4 % (11.5-14.5); White Blood Cell Count 16.7 10^3/uL (4.8-10.8)
[2024-02-28 06:00] VITALS: BMI 20.9
[2024-02-28 06:07] LABS: Blood Urea Nitrogen 113 mg/dl (7-17); Calcium 9.3 mg/dl (8.4-10.2); Carbon Dioxide 27 mmol/L (22-30); Chloride 102 mmol/L (98-107); Estimated Creatinine Clearance 27 ml/min; Glucose 112 mg/dl (70-99); Potassium 4.8 mmol/L (3.5-5.1); Sodium 142 mmol/L (135-145)
[2024-02-28 07:00] VITALS: BP 142/76
[2024-02-28 07:48] LABS: Glucose - Point of Care 132 mg/dl (70-99)
[2024-02-28] MEDS: NOVOLOG FLEXPEN-LOW RESISTANCE SC (08:22)
[2024-02-28] MEDS: IMDUR (EXTENDED RELEASE) 30 MG PO (08:23)
[2024-02-28] MEDS: LIDOCAINE 4% PATCH 1 PATCH TOPICAL (08:23)
[2024-02-28] MEDS: VISBIOME 1 CAP PO (08:24)
[2024-02-28] MEDS: LASIX 20 MG PO (08:24)
[2024-02-28] MEDS: PLAVIX 75 MG PO (08:24)
[2024-02-28] MEDS: SENOKOT-S 1 TABLET PO ×2 (08:24→20:31)
[2024-02-28] MEDS: LOW STRENGTH ASPIRIN 81 MG PO (08:24)
[2024-02-28] MEDS: APRESOLINE 50 MG PO ×2 (08:25→20:30)
[2024-02-28] MEDS: MYCOSTATIN ORAL SUSPENSION 5 ML PO (08:25)
[2024-02-28] MEDS: COREG 12.5 MG PO ×2 (08:25→20:29)
[2024-02-28] MEDS: HYDROPHOR 1 APPLIC TOPICAL (08:27)
[2024-02-28] MEDS: MERREM 500 MG IV ×2 (10:56→22:30)
[2024-02-28] MEDS: STERILE WATER FOR INJECTION 10 ML IV ×2 (10:56→22:30)
[2024-02-28 11:45] VITALS: BP 116/64
--- NOTE | 2024-02-28 11:49 | W.PN.HOSP.TC ---
Today's Communication/Plan
-
Trend BUN
Avoid NSAIDs, steroids, nephrotoxic
SCDs for DVT prophylaxis
Assessment / Plan
Assessment / Plan
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
#Leukocytosis
#Exudative right pleural effusion
-Differentials for leukocytosis include parapneumonic effusion versus infected sternal wound
-S/p thoracentesis 02/12, exudative per lights criteria; culture was negative however
-Has had persistently elevated WBC that peaked at 25 and has been downtrending on antibiotics
-Sternal wound cultures positive for pansensitive Pseudomonas; blood cultures here were negative
-CRP/ESR elevated, ID recommends 6 weeks of IV antibiotics for suspected sternal osteomyelitis
-Leukocytosis downtrending; was on steroids previously which increased them via demargination
-PICC inserted 02/20, discharge to [facility] when BUN improved
#KELLIE on CKD 3B
#Azotemia secondary to steroid use
-Secondary to decompensated heart failure and hypervolemia, cardiorenal syndrome type 1
-Baseline creatinine 1.5; presented with creatinine near 2.2 however back near baseline
-Suspect that her new creatinine baseline is roughly 1.7-2.0; creatinine peaked at 2.6 here
-Rising BUN may be due to prednisone, stopped 02/23, BUN now improving
-Consider light judicious IVF w/ albumin to improve BUN
-Avoid nephrotoxic drugs/NSAIDs
#Acute on chronic HFrecEF
-History of HFrEF with Takotsubo cardiomyopathy; status post IV diuretic regimen here
-She did have TTE performed yesterday, 02/13/2024, that showed recovery of systolic function (EF 55%)
-Status post IV Lasix, holding lasix due to rising BUN
-Continue GDMT with carvedilol, hydralazine/Imdur
-Seems close to euvolemia though volume status difficult to assess
#Edema of left sternoclavicular area
-Evaluated by cardiology, not related to pacemaker leads
-Focal ultrasound negative for acute abnormalities
-Suspect secondary to patient's left shoulder injury that she incurred while being repositioned last week
-Improved
#Left shoulder calcific tendinitis
-Has complained of left shoulder pain since being repositioned a few days ago
-X-ray without any acute findings, did show calcific tendinitis
-IV Toradol discontinued due to KELLIE, started on prednisone 40 mg p.o. daily 02/18�plan for 6-day burst course, last dose today 02/23
-Continue tramadol as needed, avoid further steroid due to azotemia
#CAD s/p PCI, CABG (2023)
-Home medications include beta-juan, aspirin, Plavix, high intensity
-Does have significant systolic dysfunction with EF 35%; Recovered EF per TTE here
-No current signs of ACS
#Acute on chronic anemia, due to chronic disease and iron deficiency
-Differentials include occult bleeding, bone marrow process; unlikely hemolysis or nutritional deficiency
-She had an iron panel earlier in hospital stay that was consistent with anemia of chronic disease
-S/p 2 unit PRBC total; hemoglobin responded appropriately with hemoglobin 8.9�9.0 next draws
-Reticulocyte count 1%, anticipated being slightly higher due to her anemia, cannot r/o bone marrow component
-Hemoglobin down to 7.7 today, had bleeding with heparin administration
-Will continue to trend CBC
#IDDM
-Most recent A1c 6.3%; per family blood sugar has been on the lower side more recently
-Home insulin regimen has been de-escalated to Lantus 4 units daily; BG < 200 consistently
-Carefully monitor and reduce insulin as needed; steroids stopped 02/23
#Essential hypertension
-Home medications include carvedilol, amlodipine, hydralazine
-No known hypertensive systemic
-Home meds continued with hold parameters
#Recent Sternal and Right LE Graft Donor Site Wound Dehiscence
-Wound care following
-See above for more detail
#H/O Complete Heart Block s/p Pacemaker/ICD
#BMI 21.2
DVT proph: HSQ
Code Status: Full Code
Disposition: [facility] when medically stable
Daughter at bedside for update
Anticipated Discharge: 24 - 48 hours
Subjective/Interval History
-
Date of Service: February 28, 2024
Seen and examined at the bedside. Daughter present and provided updates. No acute events overnight. No acute events per telemetry
Her BUN was started to improve, down to 112 today from 120 yesterday. Hemoglobin stable at 7.5. WBC downtrending post demargination from steroid. Remainder of labs unremarkable.
Denies any acute complaints including chest pain, dyspnea, fevers or chills, GI issues, urinary issues, bleeding or bruising, paresthesias or weakness.
Objective Data
-
Labs:
Laboratory Results
02/28/24
04:55
WBC 16.7 H
Hgb 7.5 L
Hct 23.1 L
Plt Count 504 H
Sodium 142
Potassium 4.8
Chloride 102
Carbon Dioxide 27
BUN 113 H*
Creatinine 1.7 H
Glucose 112 H
Calcium 9.3
Vital Signs:
Vital Signs
Temp Pulse Resp BP Pulse Ox
98.3 F 85 16 116/64 96
02/28/24 11:45 02/28/24 11:45 02/28/24 11:45 02/28/24 11:45 02/28/24 11:45
I&O
02/27/24 02/28/24 02/29/24
06:59 06:59 06:59
Intake Total 1440 / 1440 480 / 480
Output Total 350 / 350
Balance 1440 / 1440 130 / 130
Review of Systems
-
History Source: Patient and Family
All other systems: Reviewed and negative
Physical Exam
-
General: No Apparent Distress, Comfortable and Other (Frail appearing, seated in chair)
HEENT: Normocephalic, Atraumatic, Moist Mucous Membranes and PERRLA
Respiratory: Rales (Bibasilar, stable) and Non Labored Respirations; Negative Wheezes, Rhonchi or Accessory Resp Muscle Use
Cardiac: Regular Rhythm and S1/S2; Negative Murmur, Rub, JVD or Gallop
GI: Soft, Nontender, Nondistended and Normal Bowel Sounds
Musculoskeletal: No Clubbing, No Cyanosis and No Edema
Skin: Warm, Dry, Normal Turgor and Other (No erythema or purulence/fluctuance to sternal wound); Negative Rash
Neuro: AO x 3, Nonfocal/Grossly Intact and Central Nerve's Intact
Psych: Calm
Data Reviewed
-
Labs: Labs Reviewed by me, Discussed with Patient and Discussed with Family
[2024-02-28 12:30] LABS: Glucose - Point of Care 257 mg/dl (70-99)
[2024-02-28] MEDS: NOVOLOG FLEXPEN-LOW RESISTANCE 2 UNITS SC ×2 (12:44→16:44)
[2024-02-28] MEDS: VITAMIN C 500 MG PO (12:44)
[2024-02-28] MEDS: FEOSOL 325 MG PO (12:44)
[2024-02-28] MEDS: MYCOSTATIN ORAL SUSPENSION PO ×3 (12:49→23:23)
--- NOTE | 2024-02-28 13:25 | W.PN.ID1 ---
Date of Service
Date of Service: February 28, 2024
Today's Communication
Continue meropenem.
Assessment / Plan
Leukocytosis - trending down
- suspect steroid effect
Sternal wound ; hx CABG
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
Pleural effusion
- appears to be exudative given total protein, LDH and triglycerides
- cultures negative to date.
Anemia
KELLIE on CKD
HTN
Dyslipidemia
CAD; Hx CABG 10/2023
DM
CKD
Recommendations:
Wound cultures 02/14: Pseudomonas aeruginosa
ESR and crp elevated
Continue with meropenem (day #12) to complete a 6-week course. (through 03/30/24)
Continue to monitor white count / temperature curve / Cr. / est. CrCl.
����������������������������������������������������������
Chief Complaint
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
Subjective / Review of Systems
Feels fine today.
Vital Signs / Physical Exam
Vital Signs
Vital Signs
Temp Pulse Resp BP Pulse Ox
98.3 F 85 16 116/64 96
02/28/24 11:45 02/28/24 11:45 02/28/24 11:45 02/28/24 11:45 02/28/24 11:45
Physical Exam
Constitutional: No Acute Distress
Pulmonary: Other (Decreased BS)
Gastrointestinal: Soft, Non Tender, Non Distended and Normal Bowel Sounds
Neurological: AO x 3
Objective Data
Lab Data
Lab Results
02/28/24 04:55
02/28/24 04:55
ESR > 145 mm/hour (0-20) H 02/19/24 06:32
Estimated Creat Clear 27 ml/min 02/28/24 04:55
Total Bilirubin 0.2 mg/dl (0.2-1.3) 02/10/24 18:51
AST 21 U/L (14-36) 02/10/24 18:51
ALT 20 U/L (0-35) 02/10/24 18:51
Alkaline Phosphatase 78 U/L (38-126) 02/10/24 18:51
C-Reactive Protein 201.30 mg/L (0.0-10.00) H 02/19/24 06:32
Most recent labs reviewed.
Micro Results:
02/15/24 16:43 Wound Culture - Final
Chest - Unspecified Pseudomonas aeruginosa
Gram Stain - Final
02/11/24 12:57 Blood Culture - Final
Blood/Venous No Growth - Final Report
02/13/24 08:10 Body Fluid Culture - Final
Pleural Fluid No Growth After 72 Hours
Gram Stain - Final
Wound/abscess/other Cult Final 02/17/24-0837
Few Pseudomonas aeruginosa
Organism 1 Pseudomonas aeruginosa
1. Pseudomonas aeruginosa
M.I.C. RX
--------- ---
Aztreonam <=4 S
Cefepime 4 S
Ceftazidime 4 S
Ciprofloxacin <=0.25 S
Meropenem 2 S
Piperacillin/Tazobactam <=8 S
Tobramycin <=2 S
Imaging:
02/17/2024 CT chest : Moderate soft tissue edema anterior and posterior to the sternum, No CT evidence for wire fracture or sternal dehiscence, enlargement of a moderate right pleural effusion, RLL airspace consolidation
02/15/2024 CXR (portable): Small to moderate right pleural effusion without significant change. Cannot exclude tiny left pleural effusion. No pneumothorax noted. Pulmonary vascularity is top normal. Please see full dictation for additional
detail. Film personally viewed.
--- NOTE | 2024-02-28 13:28 | WOUNDNOTE ---
RIGHT LEG WOUND
--- NOTE | 2024-02-28 13:30 | WOUNDNOTE ---
WOC RN NOTE: Patient visited to follow up on sternal, right leg and sacral wounds. All wounds appear to be progressing toward healing and current wound care continues to be appropriate. Patient sitting on air cushion and donut. Advised patient not
to use donut for off-loading as it adds pressure to sacrum. Patient declined recommendation and said she wants to continue to use. Patient continues on Versa Care Max Air. She is able to stand with minimal assist and report fair appetite. Will
continue to follow as needed.
[2024-02-28] MEDS: APRESOLINE PO (13:48)
--- NOTE | 2024-02-28 13:55 | W.PN.NEPH.PH ---
Today's Communication / Plan
-
follow labs
Assessment/Plan
-
Assessment:
CAD
Sternal wound
KELLIE on CKD3b (1.5)
SOB
HTN
HFrEF, decompensated
Edema
Diabetes mellitus type 2
Leukocytosis
Anemia
PPM
Plan:
cr stable at 1.7
Azotemia is improving off steroids
cont lasix for edema
wear TEDs
follow BMP
continue abx per ID
d/c plan
-
-
Date of Service: February 28, 2024
CC / HPI / ROS
-
Chief Complaint:
KELLIE
History of Present Illness:
Creatinine 1.7 stable
BUN 113 better
Hemodynamically stable
On meropenem for sternal wound
no fever
Review of Systems:
Subjectively nonoliguric
Sternal wound
mild neck pain,
no sob
Labs
-
Labs:
WBC 16.7 10^3/uL (4.8-10.8) H 02/28/24 04:55
RBC 2.83 10^6/uL (4.20-5.40) L 02/28/24 04:55
Hgb 7.5 g/dL (12.0-16.0) L 02/28/24 04:55
Hct 23.1 % (37.0-47.0) L 02/28/24 04:55
Plt Count 504 10^3/uL (130-400) H 02/28/24 04:55
Sodium 142 mmol/L (135-145) 02/28/24 04:55
Potassium 4.8 mmol/L (3.5-5.1) 02/28/24 04:55
Chloride 102 mmol/L (98-107) 02/28/24 04:55
Carbon Dioxide 27 mmol/L (22-30) 02/28/24 04:55
BUN 113 mg/dl (7-17) H* 02/28/24 04:55
Creatinine 1.7 mg/dL (0.6-1.0) H 02/28/24 04:55
eGFR 30.70 02/28/24 04:55
Glucose 112 mg/dl (70-99) H 02/28/24 04:55
Calcium 9.3 mg/dl (8.4-10.2) 02/28/24 04:55
Emw-U-Jwhpbqaftwm Pept 6770 pg/ml 02/10/24 18:51
Albumin 3.3 g/dl (3.5-5.0) L 02/10/24 18:51
Physical Exam
-
Vital Signs:
Vital Signs
Temp Pulse Resp BP Pulse Ox
98.3 F 85 16 114/68 96
02/28/24 11:45 02/28/24 11:45 02/28/24 11:45 02/28/24 13:48 02/28/24 11:45
Cardiovascular:: Regular rate and rhythm
Respiratory:: Bilateral: CTA
Lung Excursion:: Normal
Abdomen:: Nontender and Soft
Extremity Edema:: None: Bilateral: (trace)
Jones Catheter: No
--- NOTE | 2024-02-28 15:00 | CM ---
Chart reviewed.
Pt cont. IV Lasix and IV abx
Labs cont. to be monitored for BUN improvement prior to admitting to [facility]
Report: [phone]

Plan: [facility] when medically stable
[2024-02-28 15:09] VITALS: BP 138/70
[2024-02-28 16:25] LABS: Glucose - Point of Care 210 mg/dl (70-99)
[2024-02-28] MEDS: CRESTOR 20 MG PO (16:44)
[2024-02-28] MEDS: TYLENOL 1000 MG PO (16:45)
[2024-02-28 19:00] VITALS: BP 139/70
[2024-02-28 21:42] LABS: Glucose - Point of Care 222 mg/dl (70-99)
[2024-02-28] MEDS: NEURONTIN 300 MG PO (22:30)
[2024-02-28] MEDS: LANTUS 0.04 UNITS SC (22:30)
[2024-02-28 23:00] VITALS: BP 127/68
[2024-02-29] VITALS (7 sets, daily range): BP systolic 108–159; BP diastolic 59–86; BMI 20.4
[2024-02-29 05:16] LABS: Blood Urea Nitrogen 108 mg/dl (7-17); Calcium 9.2 mg/dl (8.4-10.2); Carbon Dioxide 26 mmol/L (22-30); Chloride 104 mmol/L (98-107); Estimated Creatinine Clearance 29 ml/min; Glucose 123 mg/dl (70-99); Potassium 4.8 mmol/L (3.5-5.1); Sodium 146 mmol/L (135-145); eGFR 33.01
[2024-02-29 07:34] LABS: Glucose - Point of Care 149 mg/dl (70-99)
[2024-02-29] MEDS: NOVOLOG FLEXPEN-LOW RESISTANCE SC (07:45)
[2024-02-29] MEDS: LASIX 20 MG PO (08:42)
[2024-02-29] MEDS: LIDOCAINE 4% PATCH TOPICAL (08:42)
[2024-02-29] MEDS: MYCOSTATIN ORAL SUSPENSION PO ×4 (08:42→21:44)
[2024-02-29] MEDS: IMDUR (EXTENDED RELEASE) 30 MG PO (08:42)
[2024-02-29] MEDS: COREG 12.5 MG PO ×2 (08:42→21:50)
[2024-02-29] MEDS: APRESOLINE 50 MG PO ×2 (08:42→21:50)
[2024-02-29] MEDS: LOW STRENGTH ASPIRIN 81 MG PO (08:42)
[2024-02-29] MEDS: SENOKOT-S 1 TABLET PO ×2 (08:43→21:50)
[2024-02-29] MEDS: VISBIOME 1 CAP PO (08:43)
[2024-02-29] MEDS: PLAVIX 75 MG PO (08:43)
[2024-02-29] MEDS: HYDROPHOR 1 APPLIC TOPICAL (08:44)
[2024-02-29] MEDS: MERREM 500 MG IV ×2 (09:28→21:51)
[2024-02-29] MEDS: STERILE WATER FOR INJECTION 10 ML IV ×2 (09:28→21:51)
--- NOTE | 2024-02-29 10:18 | W.PN.HOSP.TC ---
Today's Communication/Plan
-
Continue to trend BUN
Avoid nephrotoxins/NSAIDs/steroids
Assessment / Plan
Assessment / Plan
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
#Leukocytosis
#Exudative right pleural effusion
-Differentials for leukocytosis include parapneumonic effusion versus infected sternal wound
-S/p thoracentesis 02/12, exudative per lights criteria; culture was negative however
-Has had persistently elevated WBC that peaked at 25 and has been downtrending on antibiotics
-Sternal wound cultures positive for pansensitive Pseudomonas; blood cultures here were negative
-CRP/ESR elevated, ID recommends 6 weeks of IV antibiotics for suspected sternal osteomyelitis
-Leukocytosis downtrending; was on steroids previously which increased them via demargination
-PICC inserted 02/20, discharge to [facility] when BUN improved
#Azotemia secondary to steroid use
#KELLIE on CKD 3B (RESOLVED)
-Secondary to decompensated heart failure and hypervolemia, cardiorenal syndrome type 1
-Baseline creatinine 1.5; presented with creatinine near 2.2 however back near baseline
-Suspect that her new creatinine baseline is roughly 1.7-2.0; creatinine peaked at 2.6 here
-Rising BUN may be due to prednisone, stopped 02/23; BUN peaked at 122, now 108
-Consider light judicious IVF w/ albumin to improve BUN
-Avoid nephrotoxic drugs/NSAIDs and steroids
#Acute on chronic HFrecEF (RESOLVED)
-History of HFrEF with Takotsubo cardiomyopathy; status post IV diuretic regimen here
-She did have TTE performed yesterday, 02/13/2024, that showed recovery of systolic function (EF 55%)
-Status post IV Lasix, holding lasix due to rising BUN
-Continue GDMT with carvedilol, hydralazine/Imdur
-Seems close to euvolemia though volume status difficult to assess
#Edema of left sternoclavicular area (RESOLVED)
-Evaluated by cardiology, not related to pacemaker leads
-Focal ultrasound negative for acute abnormalities
-Suspect secondary to patient's left shoulder injury that she incurred while being repositioned last week
-Improved
#Left shoulder calcific tendinitis
-Has complained of left shoulder pain since being repositioned a few days ago
-X-ray without any acute findings, did show calcific tendinitis
-IV Toradol discontinued due to KELLIE, started on prednisone 40 mg p.o. daily 02/18�plan for 6-day burst course, last dose today 02/23
-Continue tramadol as needed, avoid further steroid due to azotemia
#CAD s/p PCI, CABG (2023)
-Home medications include beta-juan, aspirin, Plavix, high intensity
-Does have significant systolic dysfunction with EF 35%; Recovered EF per TTE here
-No current signs of ACS
#Acute on chronic anemia, due to chronic disease and iron deficiency
-Differentials include occult bleeding, bone marrow process; unlikely hemolysis or nutritional deficiency
-She had an iron panel earlier in hospital stay that was consistent with anemia of chronic disease
-S/p 2 unit PRBC total; hemoglobin responded appropriately with hemoglobin 8.9�9.0 next draws
-Reticulocyte count 1%, anticipated being slightly higher due to her anemia, cannot r/o bone marrow component
-Hemoglobin down to 7.5 most recently, had bleeding with heparin administration
-Will continue to trend CBC
#IDDM
-Most recent A1c 6.3%; per family blood sugar has been on the lower side more recently
-Home insulin regimen has been de-escalated to Lantus 4 units daily; BG < 200 consistently
-Carefully monitor and reduce insulin as needed; steroids stopped 02/23
#Essential hypertension
-Home medications include carvedilol, amlodipine, hydralazine
-No known hypertensive systemic
-Home meds continued with hold parameters
#Recent Sternal and Right LE Graft Donor Site Wound Dehiscence
-Wound care following
-See above for more detail
#H/O Complete Heart Block s/p Pacemaker/ICD
#BMI 21.2
DVT proph: HSQ
Code Status: Full Code
Disposition: [facility] when medically stable
Daughter at bedside for update
Anticipated Discharge: 24 - 48 hours
Subjective/Interval History
-
Date of Service: February 29, 2024
Seen and examined at the bedside. No acute events overnight. AFVSS this morning
BUN continuing to improve, now down to 108. Recent trend 120-113-108. Creatinine stable at 1.6-1.7.
She denies acute complaints including chest pain, dyspnea, fevers or chills, GI issues, urinary issues, bleeding or bruising, paresthesias or weakness
Objective Data
-
Labs:
Laboratory Results
02/29/24
04:19
Sodium 146 H
Potassium 4.8
Chloride 104
Carbon Dioxide 26
BUN 108 H*
Creatinine 1.6 H
Glucose 123 H
Calcium 9.2
Vital Signs:
Vital Signs
Temp Pulse Resp BP Pulse Ox
97.9 F 91 18 159/85 97
02/29/24 07:30 02/29/24 07:30 02/29/24 07:30 02/29/24 07:30 02/29/24 07:30
I&O
02/28/24 02/29/24 03/01/24
06:59 06:59 06:59
Intake Total 480 / 480 600 / 600
Output Total 350 / 350 300 / 300
Balance 130 / 130 300 / 300
Review of Systems
-
History Source: Patient
All other systems: Reviewed and negative
Physical Exam
-
General: No Apparent Distress and Comfortable
HEENT: Normocephalic, Atraumatic and Moist Mucous Membranes
Respiratory: Clear to Auscultation, Non Labored Respirations and Decreased Breath Sounds (Bibasilar)
Cardiac: Regular Rhythm and S1/S2; Negative Murmur, Rub, JVD or Gallop
GI: Soft, Nontender, Nondistended and Normal Bowel Sounds
Musculoskeletal: No Clubbing, No Cyanosis and Other (Trace nonpitting edema of lower extremities)
Skin: Warm, Dry and Normal Turgor; Negative Rash
Neuro: AO x 3, Nonfocal/Grossly Intact and Central Nerve's Intact
Psych: Calm
Data Reviewed
-
Labs: Labs Reviewed by me and Discussed with Patient
[2024-02-29 11:45] LABS: Glucose - Point of Care 199 mg/dl (70-99)
[2024-02-29] MEDS: NOVOLOG FLEXPEN-LOW RESISTANCE 1 UNITS SC (11:53)
[2024-02-29] MEDS: FEOSOL 325 MG PO (11:53)
[2024-02-29] MEDS: VITAMIN C 500 MG PO (11:53)
--- NOTE | 2024-02-29 12:05 | W.PN.NEPH.PH ---
Today's Communication / Plan
-
follow labs
Assessment/Plan
-
Assessment:
CAD
Sternal wound
KELLIE on CKD3b (1.5)
SOB
HTN
HFrEF, decompensated
Edema
Diabetes mellitus type 2
Leukocytosis
Anemia
PPM
Plan:
cr stable at 1.6-baseline
Azotemia is improving off steroids
cont lasix for edema , wt improving
wear TEDs
monitor evolving hypernatremia-encourage po fluid
follow BMP
continue abx per ID
d/c plan
-
-
Date of Service: February 29, 2024
CC / HPI / ROS
-
Chief Complaint:
KELLIE
History of Present Illness:
Creatinine 1.7 stable
BUN 108 better, sodium up 146
Hemodynamically stable
On meropenem for sternal wound
no fever
Review of Systems:
Subjectively nonoliguric
Sternal wound
no sob
no diarrhea
wt decreasing
Labs
-
Labs:
WBC 16.7 10^3/uL (4.8-10.8) H 02/28/24 04:55
RBC 2.83 10^6/uL (4.20-5.40) L 02/28/24 04:55
Hgb 7.5 g/dL (12.0-16.0) L 02/28/24 04:55
Hct 23.1 % (37.0-47.0) L 02/28/24 04:55
Plt Count 504 10^3/uL (130-400) H 02/28/24 04:55
Sodium 146 mmol/L (135-145) H 02/29/24 04:19
Potassium 4.8 mmol/L (3.5-5.1) 02/29/24 04:19
Chloride 104 mmol/L (98-107) 02/29/24 04:19
Carbon Dioxide 26 mmol/L (22-30) 02/29/24 04:19
BUN 108 mg/dl (7-17) H* 02/29/24 04:19
Creatinine 1.6 mg/dL (0.6-1.0) H 02/29/24 04:19
eGFR 33.01 02/29/24 04:19
Glucose 123 mg/dl (70-99) H 02/29/24 04:19
Calcium 9.2 mg/dl (8.4-10.2) 02/29/24 04:19
Rmo-J-Aaaxhexfagm Pept 6770 pg/ml 02/10/24 18:51
Albumin 3.3 g/dl (3.5-5.0) L 02/10/24 18:51
Physical Exam
-
Vital Signs:
Vital Signs
Temp Pulse Resp BP Pulse Ox
97.8 F 87 18 108/60 96
02/29/24 11:34 02/29/24 11:34 02/29/24 11:34 02/29/24 11:34 02/29/24 11:34
Cardiovascular:: Regular rate and rhythm
Respiratory:: Bilateral: CTA
Lung Excursion:: Normal
Abdomen:: Nontender and Soft
Extremity Edema:: None: Bilateral: (trace)
Jones Catheter: No
[2024-02-29] MEDS: APRESOLINE PO (13:08)
--- NOTE | 2024-02-29 15:32 | W.PN.ID1 ---
Date of Service
Date of Service: February 29, 2024
Today's Communication
Continue meropenem.
Assessment / Plan
Leukocytosis - trending down
- suspect steroid effect
Sternal wound ; hx CABG
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
Pleural effusion
- appears to be exudative given total protein, LDH and triglycerides
- cultures negative to date.
Anemia
KELLIE on CKD
HTN
Dyslipidemia
CAD; Hx CABG 10/2023
DM
CKD
Recommendations:
Wound cultures 02/14: Pseudomonas aeruginosa
ESR and crp elevated
Continue with meropenem to complete a 6-week course. (through 03/30/24)
Continue to monitor white count / Cr. / est. CrCl.
Chief Complaint
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
Vital Signs / Physical Exam
Vital Signs
Vital Signs
Temp Pulse Resp BP Pulse Ox
98.0 F 93 18 119/59 96
02/29/24 15:19 02/29/24 15:19 02/29/24 15:19 02/29/24 15:19 02/29/24 15:19
Physical Exam
Constitutional: No Acute Distress
Pulmonary: Other (Decreased BS)
Gastrointestinal: Soft, Non Tender, Non Distended and Normal Bowel Sounds
Neurological: AO x 3
Objective Data
Lab Data
Lab Results
02/28/24 04:55
02/29/24 04:19
ESR > 145 mm/hour (0-20) H 02/19/24 06:32
Estimated Creat Clear 29 ml/min 02/29/24 04:19
Total Bilirubin 0.2 mg/dl (0.2-1.3) 02/10/24 18:51
AST 21 U/L (14-36) 02/10/24 18:51
ALT 20 U/L (0-35) 02/10/24 18:51
Alkaline Phosphatase 78 U/L (38-126) 02/10/24 18:51
C-Reactive Protein 201.30 mg/L (0.0-10.00) H 02/19/24 06:32
Most recent labs reviewed.
Micro Results:
02/15/24 16:43 Wound Culture - Final
Chest - Unspecified Pseudomonas aeruginosa
Gram Stain - Final
02/11/24 12:57 Blood Culture - Final
Blood/Venous No Growth - Final Report
02/13/24 08:10 Body Fluid Culture - Final
Pleural Fluid No Growth After 72 Hours
Gram Stain - Final
[2024-02-29 16:58] LABS: Glucose - Point of Care 218 mg/dl (70-99)
[2024-02-29] MEDS: NOVOLOG FLEXPEN-LOW RESISTANCE 2 UNITS SC (17:04)
[2024-02-29] MEDS: CRESTOR 20 MG PO (17:04)
[2024-02-29 21:40] LABS: Glucose - Point of Care 194 mg/dl (70-99)
[2024-02-29] MEDS: NEURONTIN 300 MG PO (21:50)
[2024-02-29] MEDS: LANTUS 0.04 UNITS SC (21:50)
[2024-03-01] VITALS (7 sets, daily range): BP systolic 118–147; BP diastolic 66–97; BMI 20.5
[2024-03-01 05:42] LABS: % Basophils 0.4 % (0-2); % Eosinophils 5.2 % (0-6); % Monocytes 9.2 % (1.7-9.3); % Neutrophils 67.2 % (42.2-75.2); Absolute Basophils 0.1 10^3/uL (0-0.2); Absolute Eosinophils 0.9 10^3/uL (0-0.7); Absolute Immature Granulocytes 0.2 10^3/uL (0-0.05); Absolute Lymphocytes 2.8 10^3/uL (1.2-3.4); Absolute Monocytes 1.5 10^3/uL (0.1-0.6); Hematocrit 21.8 % (37.0-47.0); Hemoglobin 7.1 g/dL (12.0-16.0); Mean Corp Hgb Conc. 32.6 g/dL (33.0-37.0); Mean Corpuscular Hgb 26.8 pg (27.0-31.0); Mean Corpuscular Volume 82.3 fL (81.0-99.0); Mean Platelet Volume 8.6 fL (7.4-10.4); Nucleated Red Blood Cells % 0 %; Platelet Count 411 10^3/uL (130-400); Red Blood Cell Count 2.65 10^6/uL (4.20-5.40); White Blood Cell Count 16.4 10^3/uL (4.8-10.8)
[2024-03-01 06:04] LABS: Blood Urea Nitrogen 97 mg/dl (7-17); Calcium 9.1 mg/dl (8.4-10.2); Carbon Dioxide 26 mmol/L (22-30); Chloride 105 mmol/L (98-107); Estimated Creatinine Clearance 28 ml/min; Glucose 118 mg/dl (70-99); Potassium 4.5 mmol/L (3.5-5.1); Sodium 145 mmol/L (135-145); eGFR 33.01
[2024-03-01] MEDS: ULTRAM 25 MG PO (06:24)
[2024-03-01 08:05] LABS: Glucose - Point of Care 134 mg/dl (70-99)
[2024-03-01] MEDS: NOVOLOG FLEXPEN-LOW RESISTANCE SC (08:47)
[2024-03-01] MEDS: LIDOCAINE 4% PATCH TOPICAL (08:48)
[2024-03-01] MEDS: IMDUR (EXTENDED RELEASE) 30 MG PO (08:48)
[2024-03-01] MEDS: APRESOLINE 50 MG PO ×2 (08:48→21:36)
[2024-03-01] MEDS: PLAVIX 75 MG PO (08:48)
[2024-03-01] MEDS: LASIX 20 MG PO (08:48)
[2024-03-01] MEDS: SENOKOT-S 1 TABLET PO ×2 (08:48→21:36)
[2024-03-01] MEDS: COREG 12.5 MG PO ×2 (08:48→21:36)
[2024-03-01] MEDS: LOW STRENGTH ASPIRIN 81 MG PO (08:49)
[2024-03-01] MEDS: VISBIOME 1 CAP PO (08:49)
[2024-03-01] MEDS: MYCOSTATIN ORAL SUSPENSION PO ×4 (08:49→21:17)
[2024-03-01] MEDS: HYDROPHOR 1 APPLIC TOPICAL (08:50)
[2024-03-01] MEDS: MERREM 500 MG IV ×3 (09:02→23:17)
[2024-03-01] MEDS: STERILE WATER FOR INJECTION 10 ML IV ×3 (09:03→23:17)
--- NOTE | 2024-03-01 10:19 | W.PN.HOSP.TC ---
Today's Communication/Plan
-
Rule out GIB with stool hemetest
Transfuse 1 unit PRBC
Speak with nephro/cards about diuretics at discharge
Avoid NSAIDs and steroid
Likely discharge to [facility]
Assessment / Plan
Assessment / Plan
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
#Leukocytosis
#Exudative right pleural effusion
-Differentials for leukocytosis include parapneumonic effusion versus infected sternal wound
-S/p thoracentesis 02/12, exudative per lights criteria; culture was negative however
-Has had persistently elevated WBC that peaked at 25 and has been downtrending on antibiotics
-Sternal wound cultures positive for pansensitive Pseudomonas; blood cultures here were negative
-CRP/ESR elevated, ID recommends 6 weeks of IV antibiotics for suspected sternal osteomyelitis
-Leukocytosis downtrending; was on steroids previously which increased them via demargination
-PICC inserted 02/20, discharge to [facility] when BUN improved
#Acute on chronic anemia
#Blood loss secondary to subcutaneous heparin injection
-Noted by nursing to have significant bleeding at site of heparin injections; have since been discontinued
-Has previously responded adequately to blood transfusions, would have dropping counts after noted bleeding
-She had an iron panel earlier in hospital stay that was consistent with anemia of chronic disease
-Reticulocyte count 1%, anticipated being slightly higher due to her anemia, cannot r/o bone marrow component
-Hemoglobin down to 7.1 today, no obvious sources of bleeding
-Order heme testing for stool, transfuse 1 unit PRBC
-Repeat CBC after blood
#Azotemia secondary to steroid use
#KELLIE on CKD 3B (RESOLVED)
-Secondary to decompensated heart failure and hypervolemia, cardiorenal syndrome type 1
-Baseline creatinine 1.5; presented with creatinine near 2.2 however back near baseline
-Suspect that her new creatinine baseline is roughly 1.7-2.0; creatinine peaked at 2.6 here
-Rising BUN may be due to prednisone, stopped 02/23; BUN peaked at 122, now 97
-Avoid nephrotoxic drugs/NSAIDs and steroids
#Acute on chronic HFrecEF (RESOLVED)
-History of HFrEF with Takotsubo cardiomyopathy; status post IV diuretic regimen here
-She did have TTE performed yesterday, 02/13/2024, that showed recovery of systolic function (EF 55%)
-Status post IV Lasix, holding lasix due to rising BUN
-Continue GDMT with carvedilol, hydralazine/Imdur
-Seems close to euvolemia though volume status difficult to assess
#Edema of left sternoclavicular area (RESOLVED)
-Evaluated by cardiology, not related to pacemaker leads
-Focal ultrasound negative for acute abnormalities
-Suspect secondary to patient's left shoulder injury that she incurred while being repositioned last week
-Improved
#Left shoulder calcific tendinitis
-Has complained of left shoulder pain since being repositioned a few days ago
-X-ray without any acute findings, did show calcific tendinitis
-IV Toradol discontinued due to KELLIE, started on prednisone 40 mg p.o. daily 02/18�plan for 6-day burst course, last dose today 02/23
-Continue tramadol as needed, avoid further steroid due to azotemia
#CAD s/p PCI, CABG (2023)
-Home medications include beta-juan, aspirin, Plavix, high intensity
-Does have significant systolic dysfunction with EF 35%; Recovered EF per TTE here
-No current signs of ACS
#IDDM
-Most recent A1c 6.3%; per family blood sugar has been on the lower side more recently
-Home insulin regimen has been de-escalated to Lantus 4 units daily; BG < 200 consistently
-Carefully monitor and reduce insulin as needed; steroids stopped 02/23
#Essential hypertension
-Home medications include carvedilol, amlodipine, hydralazine
-No known hypertensive systemic
-Home meds continued with hold parameters
#Recent Sternal and Right LE Graft Donor Site Wound Dehiscence
-Wound care following
-See above for more detail
#H/O Complete Heart Block s/p Pacemaker/ICD
#BMI 21.2
DVT proph: HSQ
Code Status: Full Code
Disposition: [facility] when medically stable
Daughter at bedside for update
Anticipated Discharge: Today
Subjective/Interval History
-
Date of Service: March 01, 2024
Seen and examined at bedside. No acute events reported overnight. AFVSS this morning.
Labs show downtrending BUN at 97 now. Hemoglobin trend 7.5�7.2�7.1 over the last [address] Vaughn from physiatry. Recommended ruling out GIB and giving 1 unit of PRBC. If no signs of GI bleeding then likely acceptance to [facility]
today.
She denies any new acute complaints including chest pain, dyspnea, fevers or chills, melena or hematochezia, abdominal pain, nausea or vomiting, paresthesias or weakness.
Objective Data
-
Labs:
Laboratory Results
03/01/24
05:07
WBC 16.4 H
Hgb 7.1 L
Hct 21.8 L
Plt Count 411 H
Sodium 145
Potassium 4.5
Chloride 105
Carbon Dioxide 26
BUN 97 H
Creatinine 1.6 H
Glucose 118 H
Calcium 9.1
Vital Signs:
Vital Signs
Temp Pulse Resp BP Pulse Ox
98.3 F 92 16 135/77 95
03/01/24 07:13 03/01/24 07:13 03/01/24 07:13 03/01/24 07:13 03/01/24 07:13
I&O
02/29/24 03/01/24 03/02/24
06:59 06:59 06:59
Intake Total 600 / 600 480 / 480
Output Total 300 / 300 250 / 250
Balance 300 / 300 230 / 230
Review of Systems
-
History Source: Patient
All other systems: Reviewed and negative
Physical Exam
-
General: Well Developed, No Apparent Distress and Comfortable
HEENT: Normocephalic, Atraumatic and Moist Mucous Membranes
Respiratory: Crackles (Bibasilar) and Non Labored Respirations; Negative Wheezes, Rhonchi or Accessory Resp Muscle Use
Cardiac: Regular Rhythm and S1/S2; Negative Murmur, Rub, JVD or Gallop
GI: Soft, Nontender, Nondistended and Normal Bowel Sounds
Musculoskeletal: No Clubbing, No Cyanosis and Other (Trace nonpitting pedal edema)
Skin: Warm, Dry and Normal Turgor; Negative Rash
Neuro: AO x 3, Nonfocal/Grossly Intact and Central Nerve's Intact
Psych: Calm
Data Reviewed
-
Labs: Labs Reviewed by me, Discussed with Patient and Discussed with Family
--- NOTE | 2024-03-01 10:19 | W.PN.NEPH.PH ---
Today's Communication / Plan
-
follow BMP
Assessment/Plan
-
Assessment:
CAD
Sternal wound
KELLIE on CKD3b (1.5)
SOB
HTN
HFrEF, decompensated
Edema
Diabetes mellitus type 2
Leukocytosis
Anemia
PPM
Plan:
cont lasix
wear TEDs
follow BMP
continue abx per ID
for PRBC
-
-
Date of Service: March 01, 2024
CC / HPI / ROS
-
Chief Complaint:
KELLIE
History of Present Illness:
Creatinine 1.6 stable
BUN < 100
Na normal
Hgb down to 7.1
Hemodynamically stable
On meropenem for sternal wound
no fever
Review of Systems:
Subjectively nonoliguric
Sternal wound
no sob
no diarrhea
Labs
-
Labs:
WBC 16.4 10^3/uL (4.8-10.8) H 03/01/24 05:07
RBC 2.65 10^6/uL (4.20-5.40) L 03/01/24 05:07
Hgb 7.1 g/dL (12.0-16.0) L 03/01/24 05:07
Hct 21.8 % (37.0-47.0) L 03/01/24 05:07
Plt Count 411 10^3/uL (130-400) H 03/01/24 05:07
Sodium 145 mmol/L (135-145) 03/01/24 05:07
Potassium 4.5 mmol/L (3.5-5.1) 03/01/24 05:07
Chloride 105 mmol/L (98-107) 03/01/24 05:07
Carbon Dioxide 26 mmol/L (22-30) 03/01/24 05:07
BUN 97 mg/dl (7-17) H 03/01/24 05:07
Creatinine 1.6 mg/dL (0.6-1.0) H 03/01/24 05:07
eGFR 33.01 03/01/24 05:07
Glucose 118 mg/dl (70-99) H 03/01/24 05:07
Calcium 9.1 mg/dl (8.4-10.2) 03/01/24 05:07
Vnq-T-Ofuwggnnkut Pept 6770 pg/ml 02/10/24 18:51
Albumin 3.3 g/dl (3.5-5.0) L 02/10/24 18:51
Physical Exam
-
Vital Signs:
Vital Signs
Temp Pulse Resp BP Pulse Ox
98.3 F 92 16 135/77 95
03/01/24 07:13 03/01/24 07:13 03/01/24 07:13 03/01/24 07:13 03/01/24 07:13
Cardiovascular:: Regular rate and rhythm
Respiratory:: Bilateral: Coarse
Lung Excursion:: Normal
Abdomen:: Nontender and Soft
Bowel Sounds:: Normal
Extremity Edema:: None: Bilateral:
--- NOTE | 2024-03-01 10:59 | W.PN.UPDATE ---
Update Note
Progress Note Update
I performed a bedside Hemoccult. Stool was grossly brown upon visualization. Negative Hemoccult testing for blood. High suspicion of blood loss anemia secondary to site of heparin injections previously. The drops in hemoglobin on CBC during her
stay here to coincide with bleeding events from heparin. Hemoccult testing negative x 2 here. Ordered 1 unit PRBC ordered supportively.
[2024-03-01 11:55] LABS: Glucose - Point of Care 173 mg/dl (70-99)
[2024-03-01] MEDS: FEOSOL 325 MG PO (12:15)
[2024-03-01] MEDS: NOVOLOG FLEXPEN-LOW RESISTANCE 1 UNITS SC ×2 (12:15→17:00)
[2024-03-01] MEDS: VITAMIN C 500 MG PO (12:15)
--- NOTE | 2024-03-01 12:32 | W.PN.ID1 ---
Date of Service
Date of Service: March 01, 2024
Today's Communication
Continue meropenem, dose renally adjusted.
Assessment / Plan
Leukocytosis - trending down
- suspect steroid effect
Sternal wound ; hx CABG
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
Pleural effusion
- appears to be exudative given total protein, LDH and triglycerides
- cultures negative to date.
Anemia
KELLIE on CKD
HTN
Dyslipidemia
CAD; Hx CABG 10/2023
DM
CKD
Recommendations:
Wound cultures 02/14: Pseudomonas aeruginosa
ESR and crp elevated
Continue with meropenem to complete a 6-week course. (through 03/30/24)
Renal function improving. Increase meropenem dose to 500mg IV q8.
Follow weekly CBC, CMP, CRP while on meropenem.
Chief Complaint
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
Subjective / Review of Systems
Feels OK.
Vital Signs / Physical Exam
Vital Signs
Vital Signs
Temp Pulse Resp BP Pulse Ox
97.9 F 83 16 118/68 95
03/01/24 11:40 03/01/24 11:40 03/01/24 11:40 03/01/24 11:40 03/01/24 08:30
Physical Exam
Cardiovascular: Regular Rate and S1/S2
Pulmonary: Clear
Gastrointestinal: Soft, Non Tender and Non Distended
Wound: Other (Sternal wound packing dry)
Objective Data
Lab Data
Lab Results
03/01/24 05:07
ESR > 145 mm/hour (0-20) H 02/19/24 06:32
Estimated Creat Clear 28 ml/min 03/01/24 05:07
Total Bilirubin 0.2 mg/dl (0.2-1.3) 02/10/24 18:51
AST 21 U/L (14-36) 02/10/24 18:51
ALT 20 U/L (0-35) 02/10/24 18:51
Alkaline Phosphatase 78 U/L (38-126) 02/10/24 18:51
C-Reactive Protein 201.30 mg/L (0.0-10.00) H 02/19/24 06:32
Most recent labs reviewed.
Micro Results:
02/15/24 16:43 Wound Culture - Final
Chest - Unspecified Pseudomonas aeruginosa
Gram Stain - Final
02/11/24 12:57 Blood Culture - Final
Blood/Venous No Growth - Final Report
02/13/24 08:10 Body Fluid Culture - Final
Pleural Fluid No Growth After 72 Hours
Gram Stain - Final
[2024-03-01] MEDS: APRESOLINE PO (13:12)
--- NOTE | 2024-03-01 15:57 | CM ---
Addendum entered by Maria L Rodney 03/01/24 16:26:
Per [facility] updated OT notes needed, TC to office, will see in am.
Original Note:
Patient for transfer to [facility] once medically approved..
Monitoring labs.
PT/OT continues to recommend Acute Rehab.
Plan: [facility], bed available tomorrow if [facility] agrees.
Please call Rafaela at [phone] to make sure they are good with accepting- need to see updated labs.
[facility]
Report: [phone]
[2024-03-01 16:03] LABS: Hematocrit 26.3 % (37.0-47.0); Hemoglobin 8.7 g/dL (12.0-16.0); Mean Corp Hgb Conc. 33.1 g/dL (33.0-37.0); Mean Corpuscular Hgb 28.6 pg (27.0-31.0); Mean Corpuscular Volume 86.5 fL (81.0-99.0); Mean Platelet Volume 8.9 fL (7.4-10.4); Platelet Count 385 10^3/uL (130-400); Red Blood Cell Count 3.04 10^6/uL (4.20-5.40); Red Cell Dist. Width 17.2 % (11.5-14.5); White Blood Cell Count 14.5 10^3/uL (4.8-10.8)
[2024-03-01 16:41] LABS: Glucose - Point of Care 185 mg/dl (70-99)
[2024-03-01] MEDS: CRESTOR 20 MG PO (17:01)
[2024-03-01 21:32] LABS: Glucose - Point of Care 207 mg/dl (70-99)
[2024-03-01] MEDS: LANTUS 0.04 UNITS SC (21:36)
[2024-03-01] MEDS: NEURONTIN 300 MG PO (21:36)
[2024-03-02 03:38] VITALS: BP 162/93
[2024-03-02 05:30] VITALS: BMI 20.5
[2024-03-02 05:40] VITALS: BP 109/78
--- NOTE | 2024-03-02 05:45 | PTCARENOTE ---
Addendum entered by Brandon Greenberg RN 03/02/24 07:18:
Pt back to baseline HR in 90s, [facility] made aware.
Original Note:
Pt sustaining 140's regular HR up to low 150s. Pt asymptomatic, BP 109/78 HR 153. [facility] made aware. EKG done, sent to [facility]. Ordered to give pt 0800 PO Coreg. Mag added to AM labs. No further orders.
[2024-03-02 06:00] LABS: Hematocrit 28.2 % (37.0-47.0); Hemoglobin 9.2 g/dL (12.0-16.0); Mean Corp Hgb Conc. 32.6 g/dL (33.0-37.0); Mean Platelet Volume 8.7 fL (7.4-10.4); Platelet Count 377 10^3/uL (130-400); Red Blood Cell Count 3.28 10^6/uL (4.20-5.40); Red Cell Dist. Width 17.1 % (11.5-14.5); White Blood Cell Count 17.9 10^3/uL (4.8-10.8)
[2024-03-02] MEDS: COREG 12.5 MG PO (06:04)
[2024-03-02 06:13] LABS: Blood Urea Nitrogen 83 mg/dl (7-17); Carbon Dioxide 25 mmol/L (22-30); Chloride 108 mmol/L (98-107); Estimated Creatinine Clearance 30 ml/min; Glucose 138 mg/dl (70-99); Magnesium 2.2 mg/dl (1.6-2.3); Potassium 4.3 mmol/L (3.5-5.1); Sodium 145 mmol/L (135-145); eGFR 35.67
[2024-03-02 06:53] VITALS: BP 106/69
--- NOTE | 2024-03-02 07:02 | W.PN.UPDATE ---
Update Note
Progress Note Update
HR sustained 140's RR, EKG noted, BP soft 109/78, Patient asymptomatic, afebrile Advised RN to give Coreg 12.5mg PO early, 45 minutes later, HR in 90's at present.
[2024-03-02 07:44] VITALS: BP 103/64
[2024-03-02 08:27] LABS: Glucose - Point of Care 149 mg/dl (70-99)
[2024-03-02] MEDS: NOVOLOG FLEXPEN-LOW RESISTANCE SC ×2 (08:35→11:52)
[2024-03-02] MEDS: APRESOLINE PO (09:41)
[2024-03-02] MEDS: SENOKOT-S 1 TABLET PO (09:41)
[2024-03-02] MEDS: LASIX 20 MG PO (09:41)
[2024-03-02] MEDS: IMDUR (EXTENDED RELEASE) 30 MG PO (09:41)
[2024-03-02] MEDS: VISBIOME 1 CAP PO (09:42)
[2024-03-02] MEDS: LOW STRENGTH ASPIRIN 81 MG PO (09:42)
[2024-03-02] MEDS: LIDOCAINE 4% PATCH TOPICAL (09:42)
[2024-03-02] MEDS: PLAVIX 75 MG PO (09:42)
[2024-03-02] MEDS: STERILE WATER FOR INJECTION 10 ML IV (09:43)
[2024-03-02] MEDS: MERREM 500 MG IV (09:43)
[2024-03-02] MEDS: MYCOSTATIN ORAL SUSPENSION PO ×2 (09:43→12:48)
--- NOTE | 2024-03-02 10:17 | W.PN.HOSP.TC ---
Today's Communication/Plan
-
Discharge to [facility]
Assessment / Plan
Assessment / Plan
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
#Leukocytosis
#Exudative right pleural effusion
-Differentials for leukocytosis include parapneumonic effusion versus infected sternal wound
-S/p thoracentesis 02/12, exudative per lights criteria; culture was negative however
-Has had persistently elevated WBC that peaked at 25 and has been downtrending on antibiotics
-Sternal wound cultures positive for pansensitive Pseudomonas; blood cultures here were negative
-CRP/ESR elevated, ID recommends 6 weeks of IV antibiotics for suspected sternal osteomyelitis
-Leukocytosis downtrending; was on steroids previously which increased them via demargination
-PICC inserted 02/20, discharge to [facility] when BUN improved
#SVT, unspecified
-Patient had heart rate in 140s overnight, asymptomatic, terminated with a.m. dose of carvedilol
-Rhythm regular at the time, currently with NSR heart rate in 70s without signs of recurrence
-Suspect this is related to blood received yesterday, low physiologic reserve, deconditioned status
-Would benefit from rehab for improved conditioning
#Acute on chronic anemia
#Blood loss secondary to subcutaneous heparin injection
-Noted by nursing to have significant bleeding at site of heparin injections; have since been discontinued
-Has previously responded adequately to blood transfusions, would have dropping counts after noted bleeding
-She had an iron panel earlier in hospital stay that was consistent with anemia of chronic disease
-Reticulocyte count 1%, anticipated being slightly higher due to her anemia, cannot r/o bone marrow component
-Hemoglobin down to 7.1 today, no obvious sources of bleeding
-Order heme testing for stool, transfuse 1 unit PRBC, Hgb 9.3 today
#Azotemia secondary to steroid use
#KELLIE on CKD 3B (RESOLVED)
-Secondary to decompensated heart failure and hypervolemia, cardiorenal syndrome type 1
-Baseline creatinine 1.5; presented with creatinine near 2.2 however back near baseline
-Suspect that her new creatinine baseline is roughly 1.7-2.0; creatinine peaked at 2.6 here
-Rising BUN may be due to prednisone, stopped 02/23; BUN peaked at 122, now 97
-Avoid nephrotoxic drugs/NSAIDs and steroids
#Acute on chronic HFrecEF (RESOLVED)
-History of HFrEF with Takotsubo cardiomyopathy; status post IV diuretic regimen here
-She did have TTE performed yesterday, 02/13/2024, that showed recovery of systolic function (EF 55%)
-Status post IV Lasix, holding lasix due to rising BUN
-Continue GDMT with carvedilol, hydralazine/Imdur
-Seems close to euvolemia though volume status difficult to assess
#Edema of left sternoclavicular area (RESOLVED)
-Evaluated by cardiology, not related to pacemaker leads
-Focal ultrasound negative for acute abnormalities
-Suspect secondary to patient's left shoulder injury that she incurred while being repositioned last week
-Improved
#Left shoulder calcific tendinitis
-Has complained of left shoulder pain since being repositioned a few days ago
-X-ray without any acute findings, did show calcific tendinitis
-IV Toradol discontinued due to KELLIE, started on prednisone 40 mg p.o. daily 02/18�plan for 6-day burst course, last dose today 02/23
-Continue tramadol as needed, avoid further steroid due to azotemia
#CAD s/p PCI, CABG (2023)
-Home medications include beta-juan, aspirin, Plavix, high intensity
-Does have significant systolic dysfunction with EF 35%; Recovered EF per TTE here
-No current signs of ACS
#IDDM
-Most recent A1c 6.3%; per family blood sugar has been on the lower side more recently
-Home insulin regimen has been de-escalated to Lantus 4 units daily; BG < 200 consistently
-Carefully monitor and reduce insulin as needed; steroids stopped 02/23
#Essential hypertension
-Home medications include carvedilol, amlodipine, hydralazine
-No known hypertensive systemic
-Home meds continued with hold parameters
#Recent Sternal and Right LE Graft Donor Site Wound Dehiscence
-Wound care following
-See above for more detail
#H/O Complete Heart Block s/p Pacemaker/ICD
#BMI 21.2
DVT proph: HSQ
Code Status: Full Code
Disposition: [facility] when medically stable
Daughters at bedside for update
Anticipated Discharge: Today
Subjective/Interval History
-
Date of Service: March 02, 2024
Seen and examined at the bedside. AFVSS this morning. Heart rate NSR. Overnight had a run of SVT with heart rate 140s that resolved shortly after receiving a.m. carvedilol dose. Patient was asymptomatic throughout the episode. Suspect that this
was secondary to volume she received yesterday with PRBC, low physiologic reserve, poorly conditioned status. As of this morning she feels well, has no complaints.
Her BUN continues to improve and is now down to 83. Hemoglobin appropriately responded to unit of blood received yesterday.
She denies chest pain, dyspnea, fevers or chills, GI issues, bleeding or bruising, paresthesias or weakness.
Objective Data
-
Labs:
Laboratory Results
03/02/24
05:34
WBC 17.9 H
Hgb 9.2 L
Hct 28.2 L
Plt Count 377
Sodium 145
Potassium 4.3
Chloride 108 H
Carbon Dioxide 25
BUN 83 H
Creatinine 1.5 H
Glucose 138 H
Calcium 9.0
Vital Signs:
Vital Signs
Temp Pulse Resp BP Pulse Ox
99.3 F 93 16 103/64 96
03/02/24 07:44 03/02/24 07:44 03/02/24 07:44 03/02/24 07:44 03/02/24 07:44
I&O
03/01/24 03/02/24 03/03/24
06:59 06:59 05:59
Intake Total 480 / 480 370 / 370
Output Total 250 / 250
Balance 230 / 230 370 / 370
Review of Systems
-
History Source: Patient
All other systems: Reviewed and negative
Physical Exam
-
General: No Apparent Distress, Comfortable and Other (Frail-appearing)
HEENT: Normocephalic, Atraumatic and Moist Mucous Membranes
Respiratory: Clear to Auscultation and Non Labored Respirations
Cardiac: Regular Rhythm and S1/S2; Negative Murmur, Rub or Gallop
GI: Soft, Nontender, Nondistended and Normal Bowel Sounds
Musculoskeletal: No Clubbing, No Cyanosis and No Edema
Skin: Warm, Dry and Normal Turgor; Negative Rash
Neuro: AO x 3, Nonfocal/Grossly Intact and Central Nerve's Intact
Psych: Calm
Data Reviewed
-
Labs: Labs Reviewed by me, Discussed with Patient and Discussed with Family
--- NOTE | 2024-03-02 10:26 | CM ---
Addendum entered by Mari Michaels 03/02/24 11:15:
Per [place] @ [facility], chart being reviewed; will get back to to confirm that [facility] will accept today
Addendum entered by Mari Michaels 03/02/24 10:41:
IMM benefit explained; form signed @ [id number]
Original Note:
Plan: Discharge to [facility] today
Report # [phone]
[2024-03-02 10:38] VITALS: BP 127/83; PULSE 110; PULSE 95
--- NOTE | 2024-03-02 11:45 | W.PN.NEPH.PH ---
Today's Communication / Plan
-
continue lasix
Assessment/Plan
-
Assessment:
CAD
Sternal wound
KELLIE on CKD3b (1.5)
SOB
HTN
HFrEF, decompensated
Edema
Diabetes mellitus type 2
Leukocytosis
Anemia
PPM
Plan:
cont lasix
wear TEDs
follow BMP
continue abx per ID
for [facility] today
-
-
Date of Service: March 02, 2024
CC / HPI / ROS
-
Chief Complaint:
KELLIE
History of Present Illness:
Creatinine 1.5 stable
BUN 83 improving
Na normal
Hgb up to 9.1 after PRBC
Hemodynamically stable
On meropenem for sternal wound
no fevers
Review of Systems:
Subjectively nonoliguric
Sternal wound
no sob
no diarrhea
Labs
-
Labs:
WBC 17.9 10^3/uL (4.8-10.8) H 03/02/24 05:34
RBC 3.28 10^6/uL (4.20-5.40) L 03/02/24 05:34
Hgb 9.2 g/dL (12.0-16.0) L 03/02/24 05:34
Hct 28.2 % (37.0-47.0) L 03/02/24 05:34
Plt Count 377 10^3/uL (130-400) 03/02/24 05:34
Sodium 145 mmol/L (135-145) 03/02/24 05:34
Potassium 4.3 mmol/L (3.5-5.1) 03/02/24 05:34
Chloride 108 mmol/L (98-107) H 03/02/24 05:34
Carbon Dioxide 25 mmol/L (22-30) 03/02/24 05:34
BUN 83 mg/dl (7-17) H 03/02/24 05:34
Creatinine 1.5 mg/dL (0.6-1.0) H 03/02/24 05:34
eGFR 35.67 03/02/24 05:34
Glucose 138 mg/dl (70-99) H 03/02/24 05:34
Calcium 9.0 mg/dl (8.4-10.2) 03/02/24 05:34
Kkk-O-Pepkyxkqevt Pept 6770 pg/ml 02/10/24 18:51
Albumin 3.3 g/dl (3.5-5.0) L 02/10/24 18:51
Physical Exam
-
Vital Signs:
Vital Signs
Temp Pulse Resp BP Pulse Ox
99.3 F 93 16 103/64 96
03/02/24 07:44 03/02/24 07:44 03/02/24 07:44 03/02/24 07:44 03/02/24 07:44
Cardiovascular:: Regular rate and rhythm
Respiratory:: Bilateral: Coarse
Lung Excursion:: Normal
Abdomen:: Nontender and Soft
Bowel Sounds:: Normal
Extremity Edema:: +1: Bilateral:
[2024-03-02 11:48] LABS: Glucose - Point of Care 136 mg/dl (70-99)
[2024-03-02 11:50] VITALS: BP 97/74
[2024-03-02] MEDS: FEOSOL 325 MG PO (12:12)
[2024-03-02] MEDS: VITAMIN C 500 MG PO (12:12)
[2024-03-02] MEDS: HYDROPHOR TOPICAL (12:12)
--- NOTE | 2024-03-02 13:47 | W.DCSUMMARY ---
Discharge Summary
Discharge Data
Date of Admission: 02/10/24
Date of Discharge: 03/02/24
-
Pending Results: No
Hospital Course
78-year-old female with HFrEF secondary to Takotsubo cardiomyopathy s/p AICD, CAD s/p CABG, CKD 3B, third-degree AVB s/p PPM LBBB, T2DM, HLD, HTN, chronic anemia, recent sternal wound dehiscence That initially presented to the hospital with
shortness of breath secondary to decompensated heart failure. Echocardiogram here showed recovery of LVEF, and range of 55%. Was treated with IV diuretic regimen with close monitoring of her renal function. Supplemental oxygen was titrated off
and once euvolemic she was transition to oral diuretic regimen. BMP should be repeated 1 week after discharge while at [facility]
During hospital stay she had repeated blood loss anemia from heparin subcutaneous injections, bleeding noted by nursing at the site of the injections. Received 3 units of PRBC during the hospital stay due to these bleeds. Ultimately heparin was
stopped and she was given SCDs. When not receiving heparin hemoglobin was fairly stable. Reticulocyte count 1% likely indicative of suboptimal bone marrow response to bleeding. On oral iron and folate at discharge. Should have repeat CBC 1 week
after discharge while at [facility]. Would avoid unnecessary anticoagulation, SCDs optimal for DVT prophylax
She had a persistent leukocytosis throughout hospital stay here. 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 Imaging was equivocal. ID recommended 6-week course of IV
meropenem via PICC line. Through the end of 03/30/2024. IV dosed per renal function every 8 hours at discharge.
Developed a worsening azotemia despite stable renal function and volume status. She was on a short course of steroid for shoulder pain secondary to injury with repositioning and left calcific tendinitis of the shoulder seen on x-ray. Suspected
azotemia secondary to steroid use. Steroids, NSAIDs were held and BUN down trended appropriately. Remained euvolemic. Discharged on Lasix 20 mg for HFrecEF. BMP in 1 week after discharge as above
Lastly, on night prior to discharge to acute inpatient rehab she had a run of SVT with heart rate near 140/min, regular on monitor. Was seen by overnight PA. Home carvedilol was given 1 hour early and rhythm terminated. Suspicion for SVT
triggered by volume received (1 unit blood on day prior to discharge), deconditioned state with low physiologic reserve. No further episodes of SVT were seen throughout the day of discharge. Should have follow-up with paper wood cutter.
Discharge Plan
-
Patient Disposition: Acute Rehab Facility
Discharge Diagnosis/Procedures: Sternal osteomyelitis-pansensitive Pseudomonas
Decompensated HFrecEF
KELLIE on CKD with azotemia worsened by steroid
Acute blood loss anemia secondary to subcutaneous heparin, bleeding at site of injection
S/p 3 units PRBC here
Condition: Fair
Diet: Diabetic, Carb Controlled and No added salt
Activity: As tolerated
Driving Restrictions: Not until seen by your Dr
Bathing Restrictions: None
Blood Work: CBC 1 week to recheck hemoglobin
BMP in 1 week to recheck renal function
Weekly CBC, CMP, CRP while on meropenem.
Specialty Instructions: Weigh Daily- Call MD for wt gain/loss 3 lbs overnight/5 lbs in 1 week
Activity Restrictions/Additional Instructions:
Wound Care Instructions
Sacrum: clean with soap and water, silicone foam change q 3 days and prn soilage.
Sternum: clean with saline, skin prep periwound, Iodoform packing strips into open ulcers, proximal portion tunnels 2cm at 12 O clock. Tail end of Iodoform strips lay at base of wound followed by folded non woven gauze and Tegaderm to secure change
daily.
Non woven gauze under each medial breast then Surgical bra daily
R leg: clean with saline, hydrogel, adaptic, abd pad and davis change daily.
Tubigrip knee high daily, can remove at hs.
Mineral oil to legs daily
Recommend air chair cushion instead of Donut when sitting.
Air overlay or air mattress with turning schedule
Increase protein in diet.
Follow up with Surgeon
Follow up at wound care center call for an appointment.
Instructions: *CBC Heart Failure Instructions
Referrals:
Anne Marie Choi DO [Family Provider] -
Kingsley Iverson MD [Non-Admitting Privileges] - in one week (Please follow-up with your paper wood cutter)
Additional Discharge Medication Instructions: Continue IV meropenem 500mg IV q8h via PICC line to complete 6 weeks of antibiotics (last day 03/30/2024)
Continue with Lasix at 20 mg daily
Continue with isosorbide mononitrate 30 mg daily
Continue daily iron and folate supplementation
Stop amlodipine
Increase tramadol to 25 mg every 12 hours as needed (7-day prescription provided)
AVOID chemical DVT prophylaxis if possible, SCDs or frequent ambulation preferred
Prescriptions:
New
isosorbide mononitrate 30 mg Tablet Extended Release 24 Hr
30 mg PO DAILY 30 Days Qty: 30 0RF
meropenem 500 mg Recon Soln
500 mg IV Q12H 30 Days Qty: 10 0RF
tramadol 50 mg Tablet
25 mg PO [id number] PRN (Reason: moderate pain) 7 Days Qty: 14 0RF
Lactobac/Bifidobac [Visbiome]
1 cap PO DAILY 30 Days 0RF
folic acid 1 mg tablet
1 mg PO DAILY 30 Days Qty: 30 0RF
Continued
gabapentin 300 mg Capsule
300 mg PO HS Qty: 3 0RF
carvedilol 12.5 mg Tablet
12.5 mg PO BID Qty: 60 0RF
clopidogrel 75 mg Tablet
75 mg PO DAILY Qty: 30 0RF
aspirin 81 mg Tablet,Chewable
81 mg PO DAILY Qty: 30 0RF
hydralazine 50 mg Tablet
50 mg PO TID@0800,1400,2000 30 Days Qty: 90 0RF
rosuvastatin 20 mg Tablet
20 mg PO QPM Qty: 30 0RF
ascorbic acid (vitamin C) [Vitamin C] 500 mg Tablet
500 mg PO DAILY@1200
ferrous sulfate [FeroSul] 325 mg (65 mg iron) tablet
325 mg PO DAILY@1200
multivitamin with folic acid [Tab-A-Danae] 400 mcg tablet
1 tab PO DAILY
insulin aspart U-100 100 unit/mL (3 mL) Insulin Pen
1 sliding scale dose SC DIRECTED
insulin glargine [Lantus Solostar U-100 Insulin] 100 unit/mL (3 mL) Insulin Pen
4 unit SC QPM
Rx Instructions:
Family notes they have been holding due to low blood sugars
furosemide 20 mg Tablet
20 mg PO DAILY Qty: 30 0RF
Discontinued
amlodipine 5 mg tablet
5 mg PO QPM Qty: 30 0RF
acetaminophen 500 mg Tablet
1,000 mg PO BID
tramadol 12.5 mg
12.5 PO Q12H PRN (Reason: pain)
Discharge Orders:
Discharge Patient (As Directed); Ordered 03/02/24
Ordered By: Leonard Cruz
Discharge Date and Time
Print Language: RWANDAN
[2024-03-02 17:01] LABS: Glucose - Point of Care 135 mg/dl (70-99)
== END 2024-03-02 14:05 | DRG 919 ==
LOC: 4 WEST ACU 22:35
PROVIDERS: Family Medicine; Internal Medicine; Physician Assistant; Physician Assistant Medical; Radiology Diagnostic Radiology; Radiology Vascular & Interventional Radiology; ADMITTING PHYSICIAN Internal Medicine; ATTENDING PHYSICIAN Internal Medicine; CONSULT PHYSICIAN Internal Medicine Cardiovascular Disease; CONSULT PHYSICIAN Internal Medicine Infectious Disease; CONSULT PHYSICIAN Physical Medicine & Rehabilitation; CONSULT PHYSICIAN Specialist; EMERGENCY PHYSICIAN Emergency Medicine; FAMILY PHYSICIAN Family Medicine
PROC: 30233N1 Transfusion of Nonautologous Red Blood Cells into Peripheral Vein, Percutaneous Approach (ICD-10-PCS; 2024-02-11)
PROC: 0W993ZZ Drainage of Right Pleural Cavity, Percutaneous Approach (ICD-10-PCS; 2024-02-13)
PROC: 02HV33Z Insertion of Infusion Device into Superior Vena Cava, Percutaneous Approach (ICD-10-PCS; 2024-02-22)
PROC: 30243N1 Transfusion of Nonautologous Red Blood Cells into Central Vein, Percutaneous Approach (ICD-10-PCS; 2024-03-01)
DX: T81.31XA Disruption of external operation (surgical) wound, not elsewhere classified, initial encounter (principal); I50.33 Acute on chronic diastolic (congestive) heart failure; L89.153 Pressure ulcer of sacral region, stage 3; I13.0 Hypertensive heart and chronic kidney disease with heart failure and stage 1 through stage 4 chronic kidney disease, or unspecified chronic kidney disease; M86.8X8 Other osteomyelitis, other site; D62 Acute posthemorrhagic anemia; J98.11 Atelectasis; E87.0 Hyperosmolality and hypernatremia; D68.32 Hemorrhagic disorder due to extrinsic circulating anticoagulants; I47.10 Supraventricular tachycardia, unspecified; N17.9 Acute kidney failure, unspecified; E11.69 Type 2 diabetes mellitus with other specified complication; D75.839 Thrombocytosis, unspecified; I25.10 Atherosclerotic heart disease of native coronary artery without angina pectoris; D72.829 Elevated white blood cell count, unspecified; I44.7 Left bundle-branch block, unspecified; K21.9 Gastro-esophageal reflux disease without esophagitis; E78.00 Pure hypercholesterolemia, unspecified; M75.32 Calcific tendinitis of left shoulder; I25.5 Ischemic cardiomyopathy; E87.6 Hypokalemia; D50.9 Iron deficiency anemia, unspecified; R53.83 Other fatigue; N18.32 Chronic kidney disease, stage 3b; B96.5 Pseudomonas (aeruginosa) (mallei) (pseudomallei) as the cause of diseases classified elsewhere; E11.22 Type 2 diabetes mellitus with diabetic chronic kidney disease; T38.0X5A Adverse effect of glucocorticoids and synthetic analogues, initial encounter; Y92.9 Unspecified place or not applicable; Y83.8 Other surgical procedures as the cause of abnormal reaction of the patient, or of later complication, without mention of misadventure at the time of the procedure; Y92.89 Other specified places as the place of occurrence of the external cause; Z79.02 Long term (current) use of antithrombotics/antiplatelets; Z79.82 Long term (current) use of aspirin; Z95.810 Presence of automatic (implantable) cardiac defibrillator; Z95.5 Presence of coronary angioplasty implant and graft; Z95.1 Presence of aortocoronary bypass graft; Z79.4 Long term (current) use of insulin; Z90.49 Acquired absence of other specified parts of digestive tract
CPT/HCPCS: 88305; 32555; 71045; 71046; 71250; 73030; 76536; 76775; 80048; 80053; 81003; 81015; 82042; 82150; 82570; 82607; 82728; 82746; 82945; 82947; 82962; 83540; 83550; 83615; 83735; 83880; 83986; 84155; 84157; 84300; 84478; 84484; 85025; 85027; 85045; 85652; 86140; 86850; 86900; 86901; 86920; 87015; 87040; 87070; 87077; 87186; 87205; 88112; 89051; 93005; 93306; 97116; 97162; 97166; 97530; 97535; 99285; P9016

== ENCOUNTER 2024-03-06 09:35 | Emergency (ER) | payer MEDICARE, SELFPAY ==
[2024-03-06] VITALS (7 sets, daily range): BP systolic 133–155; BP diastolic 73–94; BMI 26.3
[2024-03-06 09:59] LABS: % Basophils 0.4 % (0-2); % Eosinophils 4.8 % (0-6); % Immature Granulocytes 0.4 % (0-0.5); % Lymphocytes 14.4 % (20.5-51.1); % Monocytes 5.4 % (1.7-9.3); % Neutrophils 74.6 % (42.2-75.2); Absolute Basophils 0.1 10^3/uL (0-0.2); Absolute Eosinophils 0.8 10^3/uL (0-0.7); Absolute Immature Granulocytes 0.1 10^3/uL (0-0.05); Absolute Lymphocytes 2.3 10^3/uL (1.2-3.4); Absolute Monocytes 0.9 10^3/uL (0.1-0.6); Absolute Neutrophils 12.1 10^3/uL (1.4-6.5); Hematocrit 27.5 % (37.0-47.0); Hemoglobin 8.8 g/dL (12.0-16.0); Mean Corpuscular Hgb 26.8 pg (27.0-31.0); Mean Corpuscular Volume 83.8 fL (81.0-99.0); Mean Platelet Volume 8.4 fL (7.4-10.4); Nucleated Red Blood Cells % 0 %; Platelet Count 284 10^3/uL (130-400); Red Blood Cell Count 3.28 10^6/uL (4.20-5.40); Red Cell Dist. Width 17.1 % (11.5-14.5); White Blood Cell Count 16.2 10^3/uL (4.8-10.8)
--- NOTE | 2024-03-06 10:02 | ED.GENMED ---
History of Present Illness
General
Chief Complaint: Breathing Problem
Source: patient
Exam Limitations: none
Time Seen by Provider: 03/06/24 09:39
Nursing documentation reviewed up to this point in time: agreed with
History of Present Illness
History of Present Illness:
Patient presents to ED from outpatient x-ray, after her recently placed ICD alarm was triggered. Patient who is currently at [facility], secondary to healing chest wall wound, was receiving chest x-ray secondary to increased shortness of breath
with exertion. Patient denies any chest pain or palpitations. Denies increased pain. Denies fever. Denies nausea or vomiting. Denies being shocked by her defibrillator. ICD was placed shortly after bypass surgery recently. Patient states that
alarms sounded like 'siren', lasting only few seconds. Of note, patient has experienced similar shortness of breath during recent hospitalization, and required thoracentesis secondary to pleural effusion. Patient states that her shortness of
breath feels similar to her symptoms prior to thoracentesis, which improved her symptoms afterwards.
Past History
Past History
ED Past Medical History: CAD, CHF and HTN
ED Past Surgical History: Cardiac (CABG)
Social History
Tobacco: Non-smoker
Alcohol: None
Drug: None
Personal:
Living: with family
Review of Systems
Review of Systems
Allergies reviewed?: Yes
All Other Systems: ROS reviewed and negative except as documented in HPI and ROS
Constitutional: Reports no symptoms
EENT: Reports no symptoms
Respiratory: Reports trouble breathing; Denies cough
Cardiac: Reports no symptoms
ABD/GI: Reports no symptoms
Musculoskeletal: Reports no symptoms
Skin: Reports no symptoms
Neurological: Reports no symptoms
Phy Exam
Physical Exam
Physical Exam:
Physical Exam
General: no apparent distress, not acutely ill. afebrile
Head: nc/at. eomi
Neck: supple. normal.
Heart: s1/s2 regular rate and rhythm, no murmur. equal radial pulses.
Lungs: no acute respiratory distress. diminished breath sounds bilaterally
Abdomen: normal bowel sounds. not tender.
Neuro: alert and oriented. no focal neurological deficits
Skin: no rash
Psychiatric: well kept. interactive and cooperative
Extremities: LE b/l, pitting edema. no calf tenderness.
Scores
Heart Failure Risk
Heart Failure Risk Score: Not Applicable
Course
Orders/Labs/Results
Orders:
Orders
03/06/24 09:51
Electrocardiogram (*1) Urgent
Reason for Study: Shortness of Breath
03/06/24 09:52
EKG- Treatment ONCE
03/06/24 09:53
Complete Blood Count/With Diff Urgent
Comprehensive Metabolic Panel Urgent
NT-proBNP Urgent
Troponin I Urgent
03/06/24 11:57
IRAD CONSULT Urgent
Consulting Provider: Aris Arcos
Was physician already notified: Yes
Reason for Consult/Procedure: thoracentesis
Acknowledgement that appropriate orders are entered: Yes
03/06/24 13:04
Chest Single View Frontal CR [CR Chest Single View] Urgent
Comment:
Reason For Exam: s/p right thoracentesis
03/06/24 13:27
Acetaminophen [Tylenol] 650 mg .ROUTE .STK-MED ONE
03/06/24 13:33
Acetaminophen [Tylenol] 650 mg PO NOW STA
Abnormal Lab Results
03/06/24
09:53
WBC 16.2 H 10^3/uL
(4.8-10.8)
RBC 3.28 L 10^6/uL
(4.20-5.40)
Hgb 8.8 L g/dL
(12.0-16.0)
Hct 27.5 L %
(37.0-47.0)
MCH 26.8 L pg
(27.0-31.0)
MCHC 32.0 L g/dL
(33.0-37.0)
RDW 17.1 H %
(11.5-14.5)
Abs Immat Gran (auto) 0.1 H 10^3/uL
(0-0.05)
Absolute Neuts (auto) 12.1 H 10^3/uL
(1.4-6.5)
Absolute Monos (auto) 0.9 H 10^3/uL
(0.1-0.6)
Absolute Eos (auto) 0.8 H 10^3/uL
(0-0.7)
Lymphocytes % 14.4 L %
(20.5-51.1)
Sodium 147 H mmol/L
(135-145)
BUN 57 H mg/dl
(7-17)
Creatinine 1.4 H mg/dL
(0.6-1.0)
Glucose 158 H mg/dl
(70-99)
Troponin I 0.042 H* ng/ml
Albumin 3.1 L g/dl
(3.5-5.0)
03/06/24 09:53
03/06/24 09:53
Vital Signs
Initial and Last Documented VS:
Initial Vital Signs
Pulse Resp BP
80 27 142/73
03/06/24 09:41 03/06/24 09:41 03/06/24 09:41
Last Documented Vital Signs
Temp Pulse Resp BP Pulse Ox
98.3 F 80 23 155/92 99
03/06/24 10:04 03/06/24 12:37 03/06/24 12:37 03/06/24 13:34 03/06/24 10:14
MDM/Problems Addressed
MDM/Problems Addressed:
Pacemaker interrogated and interrogation report reviewed by (cardiology) -possible alarm secondary to transmission disruption. Otherwise, does not feel that patient needs any further acute evaluation/management from cardiology standpoint.
However, in light of brief episode of atrial tachycardia/atrial fibs noted in the recent days, does recommend the patient follow-up with her primary switch crew supervisor at [facility] upon discharge. Cardiology recommendation provided to patient and
her daughter, including need to follow-up with her primary switch crew supervisor.
Chest x-ray report reviewed, significant for recurrent pleural effusion, which may be causing patient to be more short of breath. As such, IRAD consulted for therapeutic thoracentesis. In light of recent thoracentesis and subsequent normal
cytology, diagnostic thoracentesis is not necessary at this time. After the procedure, [facility]. Discussed with Dr. Vaughn at [facility], who agrees with treatment plan.
*EKG
Interpreted by ED Provider?: Yes
EKG Intrepretation Date: 03/06/24
Heart Rate: 77
Rate: normal
Rhythm: sinus
[place]: left axis deviation
Interval: normal interval
QRS Pattern: normal QRS
*Critical Care Note
Total Time (30-74mins, 75-104mins- exclusive of procedures): Not Applicable
ED Attending Note
-
Portions of this chart may have been created with voice recognition software.� Occasional wrong word or��sound alike� substitutions may have occurred due to the inherent limitations of voice recognition software.
Discharge Plan
Departure
Patient Disposition: Acute Rehab Facility
Date of Disposition: 03/06/24
Time of Disposition: 12:59
Discharge Problem:
Pleural effusion
Prescriptions:
No Action
gabapentin 300 mg Capsule
300 mg PO HS Qty: 3 0RF
carvedilol 12.5 mg Tablet
12.5 mg PO BID Qty: 60 0RF
aspirin 81 mg Tablet,Chewable
81 mg PO DAILY Qty: 30 0RF
hydralazine 50 mg Tablet
50 mg PO TID@0800,1400,2000 30 Days Qty: 90 0RF
ascorbic acid (vitamin C) [Vitamin C] 500 mg Tablet
500 mg PO DAILY@1200
ferrous sulfate [FeroSul] 325 mg (65 mg iron) tablet
325 mg PO DAILY@1200
multivitamin with folic acid [Tab-A-Danae] 400 mcg tablet
1 tab PO DAILY
insulin aspart U-100 100 unit/mL (3 mL) Insulin Pen
1 sliding scale dose SC AC
insulin glargine [Lantus Solostar U-100 Insulin] 100 unit/mL (3 mL) Insulin Pen
4 unit SC QPM
meropenem 500 mg Recon Soln
500 mg IV Q12H 30 Days Qty: 10 0RF
tramadol 50 mg Tablet
25 mg PO [id number] PRN (Reason: moderate pain) 7 Days Qty: 14 0RF
folic acid 1 mg tablet
1 mg PO DAILY 30 Days Qty: 30 0RF
sennosides [senna] 8.6 mg Tablet
8.6 mg PO BID
acetaminophen [Tylenol] 325 mg Tablet
650 mg PO Q4HPRN PRN (Reason: mild pain)
docusate sodium [Colace] 100 mg Capsule
100 mg PO BID
bisacodyl [Dulcolax (bisacodyl)] 5 mg Tablet,Delayed Release (Dr/Ec)
10 mg PO DAILYPRN PRN (Reason: constipation)
Visbiome 112.5 billion cell Capsule
1 cap PO DAILY
isosorbide mononitrate 30 mg tablet extended release 24 hr
30 mg PO DAILY
clopidogrel 75 mg tablet
75 mg PO DAILY
furosemide 20 mg tablet
20 mg PO DAILY
rosuvastatin 20 mg tablet
20 mg PO QPM
Referrals:
Anne Marie Choi DO [Family Provider] -
Interventions
Interventions:
*Risk Screen - Suicide Last Done: 03/06/24 10:04
*General Assessment Last Done: 03/06/24 10:04
*Neglect/Abuse Screening Last Done: 03/06/24 10:04
ED- Fall Risk Assessment Last Done: 03/06/24 13:35
*ED COVID-19 Vaccine History Last Done: 03/06/24 10:12
*Nursing Disposition Last Done: 03/06/24 13:35
ED- Cardiac Assessment Last Done: 03/06/24 10:14
ED- Pulmonary Assessment Last Done: 03/06/24 10:14
Discharge Date and Time
Discharge Date/Time: 03/06/24 13:40
Print Language: TELUGU
[2024-03-06 10:46] LABS: ALT (SGPT) 26 U/L (0-35); AST (SGOT) 28 U/L (14-36); Albumin 3.1 g/dl (3.5-5.0); Alkaline Phosphatase 82 U/L (38-126); Blood Urea Nitrogen 57 mg/dl (7-17); Calcium 9.1 mg/dl (8.4-10.2); Carbon Dioxide 27 mmol/L (22-30); Chloride 107 mmol/L (98-107); Estimated Creatinine Clearance 29 ml/min; Glucose 158 mg/dl (70-99); Potassium 4.1 mmol/L (3.5-5.1); Sodium 147 mmol/L (135-145); Total Bilirubin 0.5 mg/dl (0.2-1.3); Total Protein 6.7 g/dl (6.3-8.2); eGFR 38.75
[2024-03-06 11:04] LABS: NT-proBNP 6860 pg/ml; Troponin I 0.042 ng/ml
[2024-03-06] MEDS: TYLENOL 650 MG PO (13:33)
== END 2024-03-06 13:40 ==
LOC: EMR 09:35
PROVIDERS: CONSULT PHYSICIAN Radiology Diagnostic Radiology; EMERGENCY PHYSICIAN Emergency Medicine; FAMILY PHYSICIAN Family Medicine
DX: J90 Pleural effusion, not elsewhere classified (principal); I25.10 Atherosclerotic heart disease of native coronary artery without angina pectoris; I11.0 Hypertensive heart disease with heart failure; I50.9 Heart failure, unspecified; Z95.1 Presence of aortocoronary bypass graft; Z95.810 Presence of automatic (implantable) cardiac defibrillator
CPT/HCPCS: 99284; 32555; 71045; 80053; 83880; 84484; 85025; 93005

== ENCOUNTER 2024-03-10 09:48 | Emergency (ER) | payer MEDICARE, SELFPAY ==
[2024-03-10 09:54] VITALS: BP 132/74; BMI 26.9
[2024-03-10 10:00] VITALS: BP 140/81
--- NOTE | 2024-03-10 11:04 | ED.GENMED ---
History of Present Illness
General
Chief Complaint: AICD Problem
Time Seen by Provider: 03/10/24 09:55
History of Present Illness
History of Present Illness:
78-year-old female presents to the emergency department from [facility] for an abnormal sound coming from her pacemaker device. Similar complaint 4 days ago was evaluated in this emergency department and felt to be an alarm due to an abnormal
transmission. She denies feeling any shocks from the AICD. No complaints otherwise
Past History
Past History
ED Past Medical History: CAD, CHF and HTN
ED Past Surgical History: Cardiac (CABG)
Social History
Tobacco: Non-smoker
Alcohol: None
Drug: None
Personal:
Living: with family
Review of Systems
Review of Systems
Allergies reviewed?: Yes
All Other Systems: ROS reviewed and negative except as documented in HPI and ROS
Phy Exam
Physical Exam
Physical Exam:
GEN: Well appearing, NAD, WDWN
HEENT: Oral mucosa moist, no scleral icterus
Cardiac: Regular rate
Lung: No respiratory distress, no tachypnea
MSK: No gross deformity or injuries
Skin: Good color, no pallor or jaundice, no rashes
Neuro: AO x3, moves all extremities freely
Psych: Calm, cooperative
Course
Orders/Labs/Results
Orders:
Orders
03/10/24 09:49
EKG [Electrocardiogram (*1)] Urgent
Reason for Study: Fatigue / Weakness
03/10/24 09:50
EKG- Treatment ONCE
Abnormal Lab Results
03/10/24
11:35
POC Glucose 130 H mg/dl
(70-99)
Vital Signs
Initial and Last Documented VS:
Initial Vital Signs
Pulse Resp Pulse Ox
79 25 96
03/10/24 09:51 03/10/24 09:51 03/10/24 09:51
Last Documented Vital Signs
Temp Pulse Resp BP Pulse Ox
98.7 F 76 18 128/76 98
03/10/24 12:06 03/10/24 12:06 03/10/24 12:06 03/10/24 12:06 03/10/24 12:06
MDM/Problems Addressed
MDM/Problems Addressed:
Device interrogation is unremarkable. According to [employer] rep this occasional alarm will stop once the patient receives her transmitter device from the company. Discharged in stable condition
*Critical Care Note
Total Time (30-74mins, 75-104mins- exclusive of procedures): Not Applicable
ED Attending Note
-
Portions of this chart may have been created with voice recognition software.� Occasional wrong word or��sound alike� substitutions may have occurred due to the inherent limitations of voice recognition software.
Discharge Plan
Departure
Patient Disposition: Home (Routine Discharge)
Date of Disposition: 03/10/24
Time of Disposition: 11:04
Patient with high blood pressure during this ER visit?: No
Discharge Problem:
Pacemaker complications
Prescriptions:
No Action
gabapentin 300 mg Capsule
300 mg PO HS Qty: 3 0RF
carvedilol 12.5 mg Tablet
12.5 mg PO BID Qty: 60 0RF
aspirin 81 mg Tablet,Chewable
81 mg PO DAILY Qty: 30 0RF
hydralazine 50 mg Tablet
50 mg PO TID@0800,1400,2000 30 Days Qty: 90 0RF
ascorbic acid (vitamin C) [Vitamin C] 500 mg Tablet
500 mg PO DAILY@1200
ferrous sulfate [FeroSul] 325 mg (65 mg iron) tablet
325 mg PO DAILY@1200
multivitamin with folic acid [Tab-A-Danae] 400 mcg tablet
1 tab PO DAILY
insulin aspart U-100 100 unit/mL (3 mL) Insulin Pen
1 sliding scale dose SC AC
insulin glargine [Lantus Solostar U-100 Insulin] 100 unit/mL (3 mL) Insulin Pen
4 unit SC QPM
meropenem 500 mg Recon Soln
500 mg IV Q12H 30 Days Qty: 10 0RF
tramadol 50 mg Tablet
25 mg PO [id number] PRN (Reason: moderate pain) 7 Days Qty: 14 0RF
folic acid 1 mg tablet
1 mg PO DAILY 30 Days Qty: 30 0RF
sennosides [senna] 8.6 mg Tablet
8.6 mg PO BID
acetaminophen [Tylenol] 325 mg Tablet
650 mg PO Q4HPRN PRN (Reason: mild pain)
docusate sodium [Colace] 100 mg Capsule
100 mg PO BID
bisacodyl [Dulcolax (bisacodyl)] 5 mg Tablet,Delayed Release (Dr/Ec)
10 mg PO DAILYPRN PRN (Reason: constipation)
Visbiome 112.5 billion cell Capsule
1 cap PO DAILY
isosorbide mononitrate 30 mg tablet extended release 24 hr
30 mg PO DAILY
clopidogrel 75 mg tablet
75 mg PO DAILY
furosemide 20 mg tablet
20 mg PO DAILY
rosuvastatin 20 mg tablet
20 mg PO QPM
Referrals:
Anne Marie Choi DO [Family Provider] -
Activity Restrictions/Additional Instructions:
We will attempt to have the [employer] rep adjust settings/alarms this week
Interventions
Interventions:
*Risk Screen - Suicide Last Done: 03/10/24 09:54
*General Assessment Last Done: 03/10/24 09:54
*Neglect/Abuse Screening Last Done: 03/10/24 09:54
ED- Fall Risk Assessment Last Done: 03/10/24 09:54
*ED COVID-19 Vaccine History Last Done: 03/10/24 09:54
*Nursing Disposition Last Done: 03/10/24 12:06
ED- Cardiac Assessment Last Done: 03/10/24 09:54
Discharge Date and Time
Discharge Date/Time: 03/10/24 11:45
Print Language: KOSOVAN
[2024-03-10 11:38] LABS: Glucose - Point of Care 130 mg/dl (70-99)
[2024-03-10 12:06] VITALS: BP 128/76
[2024-03-10 16:46] LABS: Glucose - Point of Care 125 mg/dl (70-99)
== END 2024-03-10 11:45 | disposition home or self-care (01) ==
LOC: EMR 09:48
PROVIDERS: EMERGENCY PHYSICIAN Emergency Medicine; FAMILY PHYSICIAN Family Medicine
DX: T82.118A Breakdown (mechanical) of other cardiac electronic device, initial encounter (principal); X58.XXXA Exposure to other specified factors, initial encounter; Y71.2 Prosthetic and other implants, materials and accessory cardiovascular devices associated with adverse incidents; Y83.9 Surgical procedure, unspecified as the cause of abnormal reaction of the patient, or of later complication, without mention of misadventure at the time of the procedure; Z95.810 Presence of automatic (implantable) cardiac defibrillator
CPT/HCPCS: 99284; 93289; 82962; 93005

== ENCOUNTER 2024-03-15 21:53 | Inpatient (IN) | payer MEDICARE, SELFPAY ==
[2024-03-15 17:21] VITALS: BP 177/106
[2024-03-15 18:07] VITALS: BP 179/106
--- NOTE | 2024-03-15 18:26 | ED.GENMED ---
History of Present Illness
General
Chief Complaint: Breathing Problem
Source: patient
Exam Limitations: none
Time Seen by Provider: 03/15/24 18:10
Nursing documentation reviewed up to this point in time: agreed with
History of Present Illness
History of Present Illness:
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
6-week course through 03/30/2024; ICD placed after surgery.
Last thoracentesis
Today for increasing shortness of breath. She is denies chest pain, abdominal pain, N/B/D/C, denies UTI symptoms. Denies fever or chills
Past History
Past History
ED Past Medical History: CAD, CHF, HTN and Other (Recurrent pleural effusions)
ED Past Surgical History: Cardiac (CABG)
Social History
Tobacco: Non-smoker
Alcohol: None
Drug: None
Personal:
Living: with family
Review of Systems
Review of Systems
Allergies reviewed?: Yes
All Other Systems: ROS reviewed and negative except as documented in HPI and ROS
Constitutional: Reports fatigue; Denies fever
Respiratory: Reports trouble breathing; Denies cough
Cardiac: Denies chest pain
ABD/GI: Denies abdominal pain, nausea, vomiting, diarrhea or constipated
: Denies dysuria, frequency or difficulty voiding
Phy Exam
Physical Exam
Physical Exam:
GENERAL: No acute distress. A&Ox3.
CONSTITUTIONAL: Afebrile.
EYES: Clear, conjunctivae normal
Neck: Supple
ENMT: moist mucus membranes, Pharynx nl
RESPIRATORY: Regular respirations, nonlabored, lungs with mild crackles in the right base otherwise clear. Pulse ox 96% room air
CARDIOVASCULAR: Regular rate and rhythm, no murmurs, no rubs.
GI: Soft, nontender, normal BS
MUSCULOSKELETAL: Moves with ease. Well perfused. No edema
SKIN: Warm, dry, normal
PSYCH: Normal mood and affect. Well kept, interactive and appropriate
NEUROLOGIC: Awake, alert and oriented. No focal neurological deficits
Scores
Heart Failure Risk
Heart Failure Risk Score: Not Applicable
Course
Orders/Labs/Results
Orders:
Orders
03/15/24 18:11
CR Chest - 2 Views Urgent
Comment:
Reason For Exam: recurrent pleura effusions
03/15/24 18:34
Type+Screen Urgent
Complete Blood Count/With Diff Urgent
Comprehensive Metabolic Panel Urgent
NT-proBNP Urgent
Troponin I Urgent
03/15/24 20:44
Consult Interventional Radiology [IRAD CONSULT] Urgent
Consulting Provider: Fito Madera
Was physician already notified: Yes
Reason for Consult/Procedure: L pleural effusion
Acknowledgement that appropriate orders are entered: Yes
03/15/24 21:16
Admit/Transfer Patient As Directed
Co-Sign Provider:
Level of Care: Inpatient admission
Assign to:: Telemetry
Physician / Group: Abrahan
Diagnosis: L Pleural Effusion
Reason for Telemetry: Arrhythmia
Date to Stop Telemetry: 03/18/24
Time to Stop Telemetry: 11:00
Reason for Hospitalization: L Pleural Effusion
Expected length of stay greater than two midnights?: Yes
ELOS- Estimated Length of Stay in days: 2
I certify the patient meets the requirements for IP care: Yes
PRN Pain Medication Management As Directed
May give lesser potent ordered pain med per pt: Yes
preference::
Protocol:: Medication orders for pain may be administered in a
manner that supports deferring to patient preference
when the pt is:
- Requesting an ordered lesser potent pain medication.
Least to most potent pain medications are defined
as: acetaminophen < NSAID < tramadol < opioids
(morphine, oxycodone, hydromorphone).
- Requesting a lesser dose of the same medication IF
ORDERED.
- Requesting a less intrusive route of administration
if both routes are prescribed by the provider (PO <
IV).
03/15/24 21:21
Code Status As Directed
Resuscitation Status: Full Code
03/18/24 11:00
DC Protocol for Telemetry ONCE
Abnormal Lab Results
03/15/24
18:34
WBC 11.3 H 10^3/uL
(4.8-10.8)
RBC 3.17 L 10^6/uL
(4.20-5.40)
Hgb 8.7 L g/dL
(12.0-16.0)
Hct 27.2 L %
(37.0-47.0)
MCHC 32.0 L g/dL
(33.0-37.0)
RDW 17.0 H %
(11.5-14.5)
Absolute Neuts (auto) 7.1 H 10^3/uL
(1.4-6.5)
Absolute Monos (auto) 0.8 H 10^3/uL
(0.1-0.6)
Absolute Eos (auto) 0.8 H 10^3/uL
(0-0.7)
Eosinophils % 7.4 H %
(0-6)
BUN 43 H mg/dl
(7-17)
Creatinine 1.3 H mg/dL
(0.6-1.0)
Glucose 122 H mg/dl
(70-99)
Albumin 3.3 L g/dl
(3.5-5.0)
03/15/24 18:34
03/15/24 18:34
Vital Signs
Initial and Last Documented VS:
Initial Vital Signs
Temp Pulse Resp BP Pulse Ox
98.0 F 94 20 177/106 97
03/15/24 17:21 03/15/24 17:21 03/15/24 17:21 03/15/24 17:21 03/15/24 17:21
Last Documented Vital Signs
Temp Pulse Resp BP Pulse Ox
98.0 F 79 18 177/97 96
03/15/24 17:21 03/15/24 21:30 03/15/24 21:30 03/15/24 21:00 03/15/24 19:56
MDM/Problems Addressed
Differential Diagnosis Includes:
pleural effusion
MDM/Problems Addressed:
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
6-week course through 03/30/2024; ICD placed after surgery.
Last thoracentesis
Today for increasing shortness of breath. She is denies chest pain, abdominal pain, N/B/D/C, denies UTI symptoms. Denies fever or chills
CBC unchanged from last
CMP unchanged from last
Troponin WNL
Pro BNP 5590
No hypoxemia
8:45 p.m.
Pt mildly tachypneic, mildly labored: Plan: Admit for thoracentesis in a.m.
IR Dr. Madera notified and consult in
Hospitalist notified of admission
*Critical Care Note
Total Time (30-74mins, 75-104mins- exclusive of procedures): Not Applicable
ED Attending Note
-
Portions of this chart may have been created with voice recognition software.� Occasional wrong word or��sound alike� substitutions may have occurred due to the inherent limitations of voice recognition software.
Discharge Plan
Departure
Patient Disposition: Admit
Date of Disposition: 03/15/24
Time of Disposition: 20:41
Admit to: Med/Surg
Presentation/result/management discussed w/ accepting MD/DO: Hospitalist
Condition: Fair
Discharge Problem:
Recurrent pleural effusion on right
Interventions
Interventions:
*Risk Screen - Suicide Last Done: 03/15/24 18:01
*General Assessment Last Done: 03/15/24 18:01
*Neglect/Abuse Screening Last Done: 03/15/24 18:01
*ED COVID-19 Vaccine History Last Done: 03/15/24 18:01
ED- Cardiac Assessment Last Done: 03/15/24 18:01
ED- Pulmonary Assessment Last Done: 03/15/24 18:01
[2024-03-15 18:29] VITALS: BMI 25.3
--- NOTE | 2024-03-15 18:38 | VATNOTE ---
Called by ED to assess patient's right picc line. Noted cap missing however picc cathetr clamped. Redressed picc line per protocol and applied new cap after cleansing catheter with chlorhexidine. +BR noted. labs obtained. Rn and provider informed
of above care.
[2024-03-15 18:42] LABS: % Basophils 0.6 % (0-2); % Eosinophils 7.4 % (0-6); % Immature Granulocytes 0.4 % (0-0.5); % Lymphocytes 21.9 % (20.5-51.1); % Monocytes 6.8 % (1.7-9.3); % Neutrophils 62.9 % (42.2-75.2); Absolute Basophils 0.1 10^3/uL (0-0.2); Absolute Eosinophils 0.8 10^3/uL (0-0.7); Absolute Lymphocytes 2.5 10^3/uL (1.2-3.4); Absolute Monocytes 0.8 10^3/uL (0.1-0.6); Absolute Neutrophils 7.1 10^3/uL (1.4-6.5); Hematocrit 27.2 % (37.0-47.0); Hemoglobin 8.7 g/dL (12.0-16.0); Mean Corpuscular Hgb 27.4 pg (27.0-31.0); Mean Corpuscular Volume 85.8 fL (81.0-99.0); Nucleated Red Blood Cells % 0 %; Platelet Count 397 10^3/uL (130-400); Red Blood Cell Count 3.17 10^6/uL (4.20-5.40); White Blood Cell Count 11.3 10^3/uL (4.8-10.8)
[2024-03-15 19:03] LABS: ALT (SGPT) 18 U/L (0-35); AST (SGOT) 25 U/L (14-36); Albumin 3.3 g/dl (3.5-5.0); Alkaline Phosphatase 82 U/L (38-126); Blood Urea Nitrogen 43 mg/dl (7-17); Carbon Dioxide 28 mmol/L (22-30); Chloride 102 mmol/L (98-107); Estimated Creatinine Clearance 27 ml/min; Glucose 122 mg/dl (70-99); Potassium 3.8 mmol/L (3.5-5.1); Sodium 143 mmol/L (135-145); Total Bilirubin 0.4 mg/dl (0.2-1.3); Total Protein 6.9 g/dl (6.3-8.2); eGFR 42.35
[2024-03-15 19:09] VITALS: BP 179/95
[2024-03-15 19:09] LABS: NT-proBNP 5590 pg/ml; Troponin I 0.016 ng/ml
[2024-03-15 20:00] VITALS: BP 184/98
[2024-03-15 21:00] VITALS: BP 177/97
--- NOTE | 2024-03-15 21:26 | HPS.HSE ---
Family Physician
-
Family Physician: Anne Marie Choi
Chief Complaint
-
SOB
History of Present Illness
Patient is a 78y F with PMH significant for ASCVD s/p CABG, HFrEF with recovered EF, osteomyelitis of sternum (Pseudomonas) and recurrent R pleural effusion who presents to ED complaining of increased SOB over the past few days. Patient has had
multiple, recent, complicated hospital stays. She was most recently hospitalized 02/09 - 03/02 secondary to decompensated heart failure / pleural effusion. She underwent R thoracentesis on 02/12 which was consistent with exudate. No clear etiology
was discovered. Patient was diuresed with IV Lasix; however, her tolerance of diuresis was limited by impairment in renal function.
She was discharged to [facility] on 03/02 where she remained until her recent return home on 03/12.
During her stay there, patient underwent an additional R thoracentesis on 03/06.
Since her discharge, patient has noted gradual increased in her dyspnea. Family has noted a subtle increase in her work of breathing - which they have noted with fluid accumulation in the past.
She has also appreciated some increase in swelling in the ankles and the LUE.
Her Lasix dose was decreased from 80mg BID to 40mg BID due to worsening renal function on higher dose diuretics.
Patient also remains on meropenem for sternal osteomyelitis - scheduled to continued through 03/30/24.
Medical History
Past Medical History
Past Medical History: Reports Other
Additional Past Medical History:
Coronary Artery Disease s/p prior cardiac stents and recent CABG in October 2023
Sternal Wound Dehiscence / Osteomyelitis
Chronic HFrEF (EF recovered on most recent Echo)
Recurrent Right Pleural Effusion
Complete Heart Block s/p Pacemaker/ICD
DM-II
Hypertension
CKD Stage III
GERD
Past Surgical History: Reports Other
Additional Past Surgical History:
CABG - October 2023
Cardiac Stents
PPM / AICD Placement
Cholecystectomy
L Thoracentesis (12/15/23)
R Thoracentesis (02/13/24)
R Thoracentesis (03/06/24)
Social History
Tobacco: Non-smoker
Alcohol: None
Drug: None
Living: Alone
Family History
Family History: Not pertinent
Allergies / Home Medications
Allergies reflects when Allergies were last updated in [employer].
Home Medications with original date entered in [employer]
Allergy/Medication List:
Allergies
Allergy/AdvReac Type Severity Reaction Status Date / Time
No Known Allergies Allergy Verified 03/15/24 17:24
Home Medications
aspirin 81 mg chewable tablet 81 mg PO DAILY Heart disease/condition #30 tabs 01/12/24
ascorbic acid (vitamin C) 500 mg tablet (Vitamin C) 500 mg PO DAILY@1200 Supplement 02/10/24
insulin glargine 100 unit/mL (3 mL) subcutaneous pen (Lantus Solostar U-100 Insulin) 4 unit SC HS Diabetes 02/10/24
multivitamin with folic acid 400 mcg tablet (Tab-A-Danae) 1 tab PO DAILY Supplement 02/10/24
acetaminophen 325 mg tablet (Tylenol) 650 mg PO Q4HPRN PRN mild pain 03/06/24
bisacodyl 5 mg tablet,delayed release (Dulcolax (bisacodyl)) 10 mg PO DAILYPRN PRN constipation 03/06/24
clopidogrel 75 mg tablet 75 mg PO DAILY Blood Clot Prevention/Tx 03/06/24
sennosides 8.6 mg tablet (senna) 8.6 mg PO BID Constipation 03/06/24
Lactobac no.2-Bifidobac no.1-S. thermo 112.5 billion cell capsule (Visbiome) 1 cap PO DAILY probiotic -can get over the counter #0 caps 03/11/24
carvedilol 12.5 mg tablet 12.5 mg PO BID Heart disease/condition 30 days #60 tabs 03/11/24
docusate sodium 100 mg capsule (Colace) 100 mg PO BID Constipation 30 days #60 caps 03/11/24
ferrous sulfate 325 mg (65 mg iron) tablet (FeroSul) 325 mg PO DAILY@1200 Supplement 30 days #30 tabs 03/11/24
folic acid 1 mg tablet 1 mg PO DAILY Supplement 1 month #30 tabs 03/11/24
furosemide 20 mg tablet 20 mg PO BID AT 0800,1600 Fluid retention/Swelling 30 days #60 tabs 03/11/24
gabapentin 300 mg capsule 300 mg PO HS Pain 30 days #30 caps 03/11/24
isosorbide mononitrate 30 mg tablet,extended release 24 hr 30 mg PO DAILY Heart Disease/Condition 30 days #30 tabs 03/11/24
meropenem 500 mg intravenous solution 500 mg IV Q12H Infection 19 days #38 doses 03/11/24
hydralazine 50 mg tablet 50 mg PO TID@0800,1400,2100 Blood pressure 03/15/24
rosuvastatin 20 mg tablet 20 mg PO HS High Cholesterol 03/15/24
Review of Systems
-
History Source: Patient
A 12 point ROS was completed and negative except as noted: Yes
Constitutional: Reports Fatigue; Denies Fever or Chills
Respiratory: Reports Trouble Breathing; Denies Cough
Cardiac: Denies Chest Pain or Palpitations
Abdomen/GI: Denies Abdominal Pain, Nausea, Vomiting or Diarrhea
: Denies Dysuria or Frequency
Musculoskeletal: Reports Edema; Denies Joint Pain
Neurological: Denies Dizzy or Headache
Psych: Denies Depression or Anxiety
Physical Exam
Vital Signs
Vital Signs
Temp Pulse Resp BP Pulse Ox
98.0 F 82 25 184/98 96
03/15/24 17:21 03/15/24 20:00 03/15/24 20:00 03/15/24 20:00 03/15/24 19:56
Physical Exam
General: Other (Pale, 78y F in no acute distress. Appears fatigued.)
HEENT: Moist mucous membranes and PERRLA
Respiratory: Other (Decreased BS with few rales at the R base. Otherwise clear.)
Cardiac: S1/S2, Regular Rhythm, Murmur (II/ SKYE) and Other (Sternal incision appears to be healing well.)
GI: Soft, Non Tender, Non Distended and Normal Bowel Sounds
Musculoskeletal: No Clubbing, No Cyanosis and Other (2+ pitting edema of bilateral LEs / LUE)
Neuro: AO x 3
Laboratory Results
-
03/15/24 18:34
03/15/24 18:34
Laboratory Results
Total Bilirubin 0.4 mg/dl (0.2-1.3) 03/15/24 18:34
AST 25 U/L (14-36) 03/15/24 18:34
ALT 18 U/L (0-35) 03/15/24 18:34
Alkaline Phosphatase 82 U/L (38-126) 03/15/24 18:34
Troponin I 0.016 ng/ml 03/15/24 18:34
Impression/Plan
-
A/P: Patient is a 78y F with PMH significant for ASCVD s/p CABG in October 2023 with sternal wound dehiscence, Pseudomonas osteomyelitis, CKD III and CHF who presents to ED complaining of worsening shortness of breath.
Recurrent Right Pleural Effusion
Acute on Chronic HFpEF (EF recovered on most recent Echo)
- Admit for further evaluation and treatment.
- Recurrent subjective dyspnea with increased edema and recurrent accumulation of R pleural fluid.
- Change to IV Lasix once daily for now and follow I/Os, daily weights, etc.
- Monitor renal function closely on IV diuretics.
- IR consulted for repeat thoracentesis in the AM - repeat fluid studies. Previously noted to be exudate which carries broad differential.
- Follow for clinical improvement with diuresis / thoracentesis.
CKD III
- Stable. Renal function is at / near known baseline and improved from recent hospital stay.
- Follow for changes with IV diuresis.
- Adjust BP med regimen / holding parameters to avoid hypotension during diuresis.
Sternal Osteomyelitis / Pseudomonas
- Stable. Wound appears to be healing well. Afebrile / non-toxic / etc.
- Continue current meropenem - scheduled to continue through 03/30/24.
- Follow for any new issues / complaints.
ASCVD
- Stable. No complaints of chest pain, palpitations, etc.
- Continue ASA, statin, etc.
- Troponin is decreased from prior values. No need to repeat unless new chest pain / other symptoms.
Anemia of Chronic Disease
- Stable. Hgb remains at / near recent baseline.
- Continue iron replacement.
- Avoid Heparin or similar given bleeding issues noted during prior hospital stay.
Heart Block
- Stable. s/p PPM / AICD
Benign Hypertension
- Continue current med regimen with holding parameters to avoid any hypotension during diuresis.
DM-II
- Stable. Hold very low dose basal insulin for now.
- Recent A1C (12/2023) was 6.3%.
- Follow glucose and cover with SSI if needed.
Deconditioning
- Recent long / complicated hospital and rehab stay(s).
- PT / OT to follow and continue to work on mobility / endurance.
DVT Prophylaxis: SCDs
Code Status: Full
[2024-03-15 23:00] VITALS: BP 129/73
[2024-03-16] VITALS (11 sets, daily range): BP systolic 77–158; BP diastolic 55–86; BMI 25.0; BMI 25.2
[2024-03-16] MEDS: NEURONTIN 300 MG PO ×2 (01:25→22:41)
[2024-03-16] MEDS: CRESTOR 20 MG PO ×2 (01:25→22:41)
[2024-03-16 06:16] LABS: Hematocrit 24.4 % (37.0-47.0); Hemoglobin 7.7 g/dL (12.0-16.0); Mean Corp Hgb Conc. 31.6 g/dL (33.0-37.0); Mean Corpuscular Volume 85.6 fL (81.0-99.0); Mean Platelet Volume 8.3 fL (7.4-10.4); Platelet Count 368 10^3/uL (130-400); Red Blood Cell Count 2.85 10^6/uL (4.20-5.40); White Blood Cell Count 8.9 10^3/uL (4.8-10.8)
[2024-03-16 06:38] LABS: Blood Urea Nitrogen 43 mg/dl (7-17); Calcium 9.1 mg/dl (8.4-10.2); Carbon Dioxide 31 mmol/L (22-30); Chloride 104 mmol/L (98-107); Estimated Creatinine Clearance 27 ml/min; Glucose 77 mg/dl (70-99); Potassium 3.8 mmol/L (3.5-5.1); Sodium 142 mmol/L (135-145); eGFR 42.35
[2024-03-16 07:55] LABS: Glucose - Point of Care 97 mg/dl (70-99)
[2024-03-16] MEDS: NOVOLOG FLEXPEN-LOW RESISTANCE SC ×3 (08:42→17:41)
[2024-03-16] MEDS: SENOKOT 8.6 MG PO ×2 (09:01→20:26)
[2024-03-16] MEDS: COREG 12.5 MG PO ×2 (09:01→20:25)
[2024-03-16] MEDS: PLAVIX 75 MG PO (09:02)
[2024-03-16] MEDS: LOW STRENGTH ASPIRIN 81 MG PO (09:02)
[2024-03-16] MEDS: VISBIOME 1 CAP PO (09:02)
[2024-03-16] MEDS: APRESOLINE 50 MG PO ×3 (09:02→22:42)
[2024-03-16] MEDS: IMDUR (EXTENDED RELEASE) 30 MG PO (09:02)
[2024-03-16] MEDS: LASIX 40 MG IV (09:03)
[2024-03-16] MEDS: COLACE 100 MG PO ×2 (09:03→20:26)
[2024-03-16] MEDS: FOLVITE 1 MG PO (09:03)
[2024-03-16] MEDS: STERILE WATER FOR INJECTION 10 ML IV ×2 (10:49→22:42)
[2024-03-16] MEDS: MERREM 500 MG IV ×2 (10:49→22:42)
[2024-03-16] MEDS: TYLENOL 650 MG PO (10:51)
--- NOTE | 2024-03-16 12:02 | CON.PUL ---
Consultation
Consultation Request
Date/Time Consultation Requested: 03/16/2024 - 112
Date/Time Consultation Performed: 03/16/2024 - 1159
Requesting Provider: Dr. Crouch
Performing Provider: Dr. Bennett
Reason for Consultation: Recurrent R-sided pleural effusion
Medical History
-
Chief Complaint: Worsening SOB
History of Present Illness:
78-year-old female with a past medical history of CAD s/p CABG x 4 (11/29/2023), recurrent pleural effusions, chronic HFrEF s/p ICD, history of complete heart block, hypertension, hyperlipidemia, DM type II, CKD, lung nodules, thyroid nodule, history
of prolonged QTc, and history of NSTEMI s/p coronary stents who presents with worsening shortness of breath. She told the ER that she believes she needs a thoracentesis. She was recently discharged from [facility] this past Monday. She has a
history of a sternal wound with wound culture on 02/15/2024 positive for Pseudomonas aeruginosa and she is currently on meropenem to complete a 6-week course through 03/30/2024 per ID. Her last thoracentesis was on 03/06/2024 in the ER with
aspiration 1 L of fluid. She has had multiple thoracenteses since her CABG with her first and 12/15/2023, and then again on 02/13/2024 and last done on 03/06/2024. Fluid studies sent on 02/13/2024 which was exudative with cytology negative for
malignant cells and culture showing NGTD. Her most recent echo on 02/13/2024 showed LVEF 55-60% which had improved from 30% from prior TTE on 11/23/2023, although her TR is now moderate from mild and she has mild - moderate MR. Her shortness of
breath has been gradually worsening since leaving [facility] on 03/12/2024. She also has some swelling in her ankles and her left arm. Her Lasix dose was reduced from 80 mg twice a day to 40 mg twice a day due to worsening renal function on the higher
dose of Lasix. In the ER, she was afebrile to 90 �F, pulse rate 94, breathing at 20 breaths/min, BP 177/106 and saturating 97% on room air. Labs showed Hb 8.7, WBC 11.3, elevated absolute eosinophil count of 800, creatinine 1.3, proBNP 5590, with
CXR showing moderate right-sided pleural effusion. Her last CT chest was on 02/17/2024 showing a moderate size right-sided pleural effusion with punctate calcification seen along the visceral pleura suggesting a chronic process. Thoracentesis
performed by IR and they removed 950 cc of straw-colored pleural fluid. Pleural studies showed it was exudative with total protein 4.6, LDH 162, fluid WBC 1667 with monocyte predominance and pH 7.64. She was admitted to telemetry for further care
and pulmonary service consulted for additional management/recommendations.
When I saw the patient, she had just returned from IR from her thoracentesis and was feeling much better. Her daughter, Roxanne, was at bedside and all questions were answered. Patient is currently on room air breathing comfortably. Patient denies
cough, recent sick contacts, diarrhea, fevers or chills.
PMHx: CAD s/p CABG x 4 (11/29/2023), recurrent pleural effusions, history of NSTEMI s/p coronary stents, chronic HFrEF s/p ICD, history of complete heart block, hypertension, hyperlipidemia, DM type II, CKD, history of coccyx pressure injury, history
of constipation, lung nodules, thyroid nodule, right scoliosis, history of prolonged QTc, umbilical hernia, chronic anemia
PSHx: CABG x 4 (11/29/2023), coronary stents, cholecystectomy, ICD (2003)
Past Medical History
Past Medical History: Other (Above as per HPI)
Past Surgical History: Other (Above as per HPI)
Social History
Tobacco: Non-smoker
Alcohol: None
Drug: None
Living: With Family
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
Family History
Family History: Reviewed & Not Pertinent
Allergies / Home Medications
Allergies
Allergy/AdvReac Type Severity Reaction Status Date / Time
No Known Allergies Allergy Verified 03/15/24 17:24
Home Medications
�Medication �Instructions �Recorded �Confirmed �Last Taken �Type
aspirin 81 mg chewable tablet 81 mg PO DAILY Heart 01/12/24 03/15/24 03/15/24 Rx
disease/condition #30 tabs
ascorbic acid (vitamin C) 500 mg 500 mg PO DAILY@1200 Supplement 02/10/24 03/15/24 03/15/24 History
tablet (Vitamin C)
insulin glargine 100 unit/mL (3 4 unit SC HS Diabetes 02/10/24 03/15/24 03/14/24 History
mL) subcutaneous pen (Lantus
Solostar U-100 Insulin)
multivitamin with folic acid 400 1 tab PO DAILY Supplement 02/10/24 03/15/24 03/15/24 History
mcg tablet (Tab-A-Danae)
acetaminophen 325 mg tablet 650 mg PO Q4HPRN PRN mild pain 03/06/24 03/15/24 Unknown History
(Tylenol)
bisacodyl 5 mg tablet,delayed 10 mg PO DAILYPRN PRN constipation 03/06/24 03/15/24 Unknown History
release (Dulcolax (bisacodyl))
clopidogrel 75 mg tablet 75 mg PO DAILY Blood Clot 03/06/24 03/15/24 03/15/24 History
Prevention/Tx
sennosides 8.6 mg tablet (senna) 8.6 mg PO BID Constipation 03/06/24 03/15/24 03/15/24 21:00 History
Lactobac no.2-Bifidobac no.1-S. 1 cap PO DAILY probiotic -can get 03/11/24 03/15/24 03/15/24 Rx
thermo 112.5 billion cell capsule over the counter #0 caps
(Visbiome)
carvedilol 12.5 mg tablet 12.5 mg PO BID Heart 03/11/24 03/15/24 03/15/24 21:00 Rx
disease/condition 30 days #60 tabs
docusate sodium 100 mg capsule 100 mg PO BID Constipation 30 days 03/11/24 03/15/24 03/15/24 21:00 Rx
(Colace) #60 caps
ferrous sulfate 325 mg (65 mg 325 mg PO DAILY@1200 Supplement 30 03/11/24 03/15/24 03/15/24 Rx
iron) tablet (FeroSul) days #30 tabs
folic acid 1 mg tablet 1 mg PO DAILY Supplement 1 month 03/11/24 03/15/24 03/15/24 Rx
#30 tabs
furosemide 20 mg tablet 20 mg PO BID AT 0800,1600 Fluid 03/11/24 03/15/24 03/15/24 16:00 Rx
retention/Swelling 30 days #60 tabs
gabapentin 300 mg capsule 300 mg PO HS Pain 30 days #30 caps 03/11/24 03/15/24 03/15/24 Rx
isosorbide mononitrate 30 mg 30 mg PO DAILY Heart 03/11/24 03/15/24 03/15/24 Rx
tablet,extended release 24 hr Disease/Condition 30 days #30 tabs
meropenem 500 mg intravenous 500 mg IV Q12H Infection 19 days 03/11/24 03/15/24 03/15/24 21:00 Rx
solution #38 doses
hydralazine 50 mg tablet 50 mg PO TID@0800,1400,2100 Blood 03/15/24 03/15/24 03/15/24 21:00 History
pressure
rosuvastatin 20 mg tablet 20 mg PO HS High Cholesterol 03/15/24 03/15/24 03/15/24 21:00 History
Review of Systems
-
History Source: Patient
All other systems: Negative unless noted
Vitals / Labs / Diagnostic Testing
Vital Signs
Temp Pulse Resp BP Pulse Ox
97.5 F 100 17 152/81 95
03/16/24 12:44 03/16/24 12:44 03/16/24 12:44 03/16/24 12:44 03/16/24 12:44
Lab Data
03/16/24 06:02
03/16/24 06:02
Diagnostic Testing:
Physical Exam
-
HEENT: Normocephalic and Anicteric
Cardiovascular: S1/S2 and Peripheral Edema (negative)
Respiratory: Wheeze (negative), Rales (Bilaterally in the mid to lower lung [place]), Rhonchi (negative) and Non-Labored Respirations
GI: Soft, Non Distended, Non Tender and Normal Bowel Sounds
Neurology: Tremors (negative) and Other (Sleeping but easily arousable to voice and tactile stimulation)
Skin: Warm and Dry
General: Respiratory Distress (negative), Comfortable, Chills (negative), Sweats (negative) and Other (Sleeping in no acute distress and easily arousable to voice/tactile stimulation and answering questions appropriately)
Assessment
-
Assessment: 78-year-old female with a past medical history of CAD s/p CABG x 4 (11/29/2023), recurrent pleural effusions (R>L), chronic HFrEF s/p ICD, history of complete heart block, hypertension, hyperlipidemia, DM type II, CKD, lung nodules,
thyroid nodule, history of prolonged QTc, and history of NSTEMI s/p coronary stents who presents with worsening shortness of breath. She was recently discharged from [facility]. She has had multiple thoracenteses since her CABG with her first and
12/15/2023, and then again on 02/13/2024 and last done on 03/06/2024. She reports that she has been having ankle swelling for last several days as well as left arm swelling. Her Lasix dose was recently reduced from 80 mg BID to 40mg BID due to
worsening renal function while on the higher dosing. Currently, CXR shows moderate size right pleural effusion and she underwent IR thoracentesis on 03/16/2024 removing 950 cc of straw-colored exudative pleural fluid. She was admitted to telemetry
for further care and pulmonary service now consulted for additional management/recommendations.
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
pressure injury, history of constipation, lung nodules, thyroid nodule, right scoliosis, history of prolonged QTc, umbilical hernia, chronic anemia
Impression:
#Recurrent right-sided pleural effusion despite multiple thoracenteses now s/p thoracentesis on 03/16/2024 with 950 cc of straw-colored exudative pleural fluid removed - likely due to ADHF
#Shortness of breath due to above
#Acute on chronic chronic HFpEF with moderate TR + mild�moderate MR
#Chronic anemia
#Increase eosinophil count (800 on 03/15/2024)
#Sternal wound with suspected osteomyelitis with wound culture growing monge-sensitive Pseudomonas aeruginosa
#CKD (baseline creatinine 1.3�1.4)
#History of NSTEMI s/p coronary stents
#History of complete heart block s/p PPM/ICD
#Hypertension
#Hyperlipidemia
Plan:
- She is s/p thoracentesis today in IR with 950 cc of straw-colored, exudative fluid which is monocyte predominant with residual small right-sided pleural effusion seen after procedure
- Perhaps this is pseudo-exudative as she does take Lasix chronically
- Re-check CXR tomorrow to re-assess for speed of re-accumulation
- Will consider CT chest if additional lung parenchymal details are needed
- Ultimately will consider pleurodesis with IR with chest tube and instillation of doxy vs bleomycin, however the R-lung needs to be dry before pleurodesis can be successful --> she did have bilateral pleural effusions even before her CABG, however
her pleural effusions have certainly worsened after her procedure, but this could be difficult to pinpoint an etiology from as she could have received IVF and other medications with a net (+) fluid balance, and she also developed an KELLIE s/p CABG.
There is also possibility that there is damage to her pleura where re-absorption of pleural fluid occurs and this could be explaining why she is having re-accumulation of her pleural fluid, however usually the pleural fluid that accumulates after
CABG is left sided and is more common in the first 30 days post-CABG and are typically small; she is behaving more like heart failure as cause of her pleural effusion buildup
- Continue IV lasix 40mg daily, and trend sCr, monitor UOP and strict I/O
- Can consider limited echo
- Consult cardiology
- Her absolute eosinophil count is elevated however she denies a history of asthma, she is breathing more comfortably after the thoracentesis, there is no wheezing on exam, and no concern for parasitic infection
- Continue to trend; if patient becomes SOB with minimal reaccumulation of right-sided pleural effusion, then could consider starting systemic steroids with outpatient PFTs + FeNO
- Maintain SpO2 >90-94% with supplemental O2 as needed
- Incentive spirometer
- Continue with meropenem given her sternal wound with suspected sternal osteomyelitis with wound culture growing Pseudomonas aeruginosa
- Although CXR shows findings concerning for mild right upper lobe + right perihilar pneumonia, she has no clinical symptoms consistent with pneumonia. Continue with antibiotics as stated above and continue to monitor
- Replete electrolytes with K>4, Mg>2
- Maintain euglycemia with goal BG >100 and <180
- prn nebulized bronchodilators - not currently bronchospastic
- DVT ppx: SCDs for now given her Hb is 7.7 this AM --> if Hb remains stable by tomorrow with no clinical evidence for bleeding, then would start HSQ at that time
Pulmonary service will continue to follow along.
Data:
CXR 03/15/2024:
Moderate right pleural effusion. Enlarged compared to prior CXR on 03/11/2024
Findings suggesting a mild right upper lobe and right perihilar pneumonia. Progressed in right upper lobe. Stable in the right perihilar region
Total time spent today was 56 minutes for this encounter. Time includes reviewing laboratory test/imaging results, reviewing pertinent medical records, obtaining and reviewing medical history, performing an appropriate exam, ordering medications,
tests and procedures. Time also includes documentation of this encounter, coordinating patient care and communicating with other healthcare professionals. Total time does not include separately billed tests performed on this date of service.
[2024-03-16 12:04] LABS: LDH 185 U/L (120-246)
[2024-03-16 12:43] LABS: Glucose - Point of Care 147 mg/dl (70-99)
--- NOTE | 2024-03-16 13:06 | W.PN.HOSP.TC ---
Addendum entered and electronically signed by Jim Son MD 03/16/24 15:50:
Seen and examined by me independently in collaboration with the medical asst.
Lab data and imaging data reviewed.
Addendum as below :
Patient presents with recurrent symptomatic right pleural effusion. Requiring 2 L of oxygen. Decreased breath sounds on right side without any active bronchospasm. In the past it was exudative. It started post CABG. She had a sternal
osteomyelitis post CABG. Her cultures from the fluid was negative in the past.
Recurrent nature of pleural effusion may be sec to trapped lung. In view of recurrent need of thoracentesis consider further interventions-Pleurx catheter for aspiration and hopefully self pleurodesis versus thoracoscopy and pleurodesis.
Consult Pulmonary.
DW Daughter at bedside and went over imaging and tx plans.
IR to tap for now.
Total time spent on today's encounter was 52 minutes which included time spent in counseling the patient/family regarding diagnosis and treatment plan as listed above, goals of care, and symptom management. Case was discussed with nursing staff,
specialists . All labs and imaging personally reviewed by me. Remainder the time spent in detailed review of previous records, lab data, imaging, and other medical provider documentation.
Original Note:
Today's Communication/Plan
-
Thoracentesis pending
Pulmonology consult for recurrent issue
Continue IV diuresis
Assessment / Plan
Assessment / Plan
Patient is a 78y F with PMH significant for ASCVD s/p CABG in October 2023 with sternal wound dehiscence, Pseudomonas osteomyelitis, CKD III and CHF who presents to ED complaining of SOB. No other complaints.
Recurrent right pleural effusion
Acute on chronic HFpEF (EF recovered on most recent Echo 50-55% on 02/13/24)
- Subjective dyspnea -okay on 2 L of oxygen
- 40 mg IV Lasix once daily
- Follow I's and O's and daily weights
� IR consulted for repeat thoracentesis
� Previous pleural fluid studies revealed exudative transudate with no malignant cells noted
� Pulmonology consulted as this is a recurrent issue
CKD stage IIIa
- Stable, creatinine at near known baseline
-Follow
Sternal osteomyelitis/Pseudomonas
� Stable. Afebrile. WBC within normal limits
� Continue current meropenem dose�scheduled to continue through 03/30/24
ASCVD
-Continue ASA and statin
-No complaints of chest pain, palpitations
Anemia of chronic disease
� Stable. Hemoglobin appears near recent baseline
- Continue iron supplements
- Compression device for DVT prophylaxis given bleeding issues noted during prior hospital stay
Heart block
� AICD
Benign hypertension
� Continue home meds with holding parameters to avoid any hypotensive episodes during diuresis
Type 2 diabetes
� 01/22 hemoglobin A1c 6.3
� SSI if needed
Deconditioning
� PT OT
DVT prophylaxis compression device
Full Code
Anticipated Discharge: Within 24 hours
Subjective/Interval History
-
Date of Service: March 16, 2024
Objective Data
-
Labs:
Laboratory Results
03/16/24
06:02
WBC 8.9
Hgb 7.7 L
Hct 24.4 L
Plt Count 368
Sodium 142
Potassium 3.8
Chloride 104
Carbon Dioxide 31 H
BUN 43 H
Creatinine 1.3 H
Glucose 77
Calcium 9.1
Vital Signs:
Vital Signs
Temp Pulse Resp BP Pulse Ox
97.5 F 100 17 152/81 95
03/16/24 12:44 03/16/24 12:44 03/16/24 12:44 03/16/24 12:44 03/16/24 12:44
I&O
03/15/24 03/16/24 03/17/24
06:59 06:59 06:59
Intake Total 120 / 120
Balance 120 / 120
Review of Systems
-
History Source: Patient
Constitutional: Reports No Symptoms
EENT: Reports No Symptoms Reported
Respiratory: Reports Trouble Breathing (Okay on 2 L of oxygen)
Cardiac: Reports No Symptoms
Abdomen/GI: Reports No Symptoms
Genitourinary: Reports No Symptoms
Neuro: Reports No Symptoms
Physical Exam
-
General: No Apparent Distress and Comfortable
HEENT: Normocephalic
Respiratory: Crackles (Few crackles at base) and Decreased Breath Sounds
Cardiac: Regular Rhythm and S1/S2
GI: Soft, Nontender, Nondistended and Normal Bowel Sounds
Musculoskeletal: No Edema
Skin: Warm
Neuro: AO x 3
Psych: Calm
[2024-03-16] MEDS: FEOSOL 325 MG PO (13:58)
[2024-03-16 15:27] LABS: Body Fluid pH 7.64
[2024-03-16 15:31] LABS: Body Fluid Mononuclear 75.8 %; Body Fluid Polymorphonuclear 24.2 %; Body Fluid WBC 1667 /CUMM
[2024-03-16 15:34] LABS: Body Fluid Second Tech JMK
[2024-03-16 15:48] LABS: Body Fluid Glucose 119 mg/dl; Body Fluid LDH 162 U/L; Body Fluid Protein 4.6 g/dl
[2024-03-16 17:40] LABS: Glucose - Point of Care 135 mg/dl (70-99)
[2024-03-16 21:37] LABS: Glucose - Point of Care 160 mg/dl (70-99)
[2024-03-17] VITALS (8 sets, daily range): BP systolic 120–163; BP diastolic 63–96; PULSE 83; O2SAT 96; BMI 24.8
[2024-03-17 08:05] LABS: Glucose - Point of Care 109 mg/dl (70-99)
[2024-03-17 08:27] LABS: Hemoglobin 8.2 g/dL (12.0-16.0); Mean Corp Hgb Conc. 31.5 g/dL (33.0-37.0); Mean Corpuscular Hgb 26.9 pg (27.0-31.0); Mean Corpuscular Volume 85.2 fL (81.0-99.0); Mean Platelet Volume 8.1 fL (7.4-10.4); Platelet Count 404 10^3/uL (130-400); Red Blood Cell Count 3.05 10^6/uL (4.20-5.40); White Blood Cell Count 10.5 10^3/uL (4.8-10.8)
[2024-03-17 08:47] LABS: Blood Urea Nitrogen 42 mg/dl (7-17); Calcium 8.6 mg/dl (8.4-10.2); Carbon Dioxide 30 mmol/L (22-30); Chloride 105 mmol/L (98-107); Estimated Creatinine Clearance 30 ml/min; Glucose 102 mg/dl (70-99); Potassium 3.9 mmol/L (3.5-5.1); Sodium 146 mmol/L (135-145); eGFR 46.62
[2024-03-17] MEDS: VISBIOME 1 CAP PO (08:55)
[2024-03-17] MEDS: LOW STRENGTH ASPIRIN 81 MG PO (08:55)
[2024-03-17] MEDS: PLAVIX 75 MG PO (08:55)
[2024-03-17] MEDS: SENOKOT 8.6 MG PO ×2 (08:55→21:29)
[2024-03-17] MEDS: COREG 12.5 MG PO ×2 (08:55→21:27)
[2024-03-17] MEDS: FOLVITE 1 MG PO (08:55)
[2024-03-17] MEDS: IMDUR (EXTENDED RELEASE) 30 MG PO (08:55)
[2024-03-17] MEDS: LASIX 40 MG IV (08:55)
[2024-03-17] MEDS: COLACE 100 MG PO ×2 (08:55→21:29)
[2024-03-17] MEDS: APRESOLINE 50 MG PO ×3 (08:55→21:28)
[2024-03-17] MEDS: NOVOLOG FLEXPEN-LOW RESISTANCE SC (08:56)
[2024-03-17] MEDS: MERREM 500 MG IV ×2 (08:57→21:30)
[2024-03-17] MEDS: STERILE WATER FOR INJECTION 10 ML IV ×2 (08:58→21:29)
--- NOTE | 2024-03-17 09:43 | W.PN.PUL3 ---
Today's Communication / Plan
-
Consult IR for chest tube with eventual chemical pleurodesis
If chest tube is placed and right-sided effusion does not fully regress, then pleurodesis is not going to be successful and only other option is outpatient thoracentesis versus Pleurx
I did mention surgical pleurodesis via CT surgery, however family is not currently opting for surgical intervention
Up OOB as tolerated
Diuresis as per cardiology
Maintain net negative fluid balance as patient has lower extremity edema and her pleural effusion is likely due to acute heart failure in the setting of recent CABG
Pulmonary service will continue to follow along while she remains hospitalized
Assessment
-
Assessment: 78-year-old female with a past medical history of CAD s/p CABG x 4 (11/29/2023), recurrent pleural effusions (R>L), chronic HFrEF s/p ICD, history of complete heart block, hypertension, hyperlipidemia, DM type II, CKD, lung nodules,
thyroid nodule, history of prolonged QTc, and history of NSTEMI s/p coronary stents who presents with worsening shortness of breath. She was recently discharged from [facility]. She has had multiple thoracenteses since her CABG with her first and
12/15/2023, and then again on 02/13/2024 and last done on 03/06/2024. She reports that she has been having ankle swelling for last several days as well as left arm swelling. Her Lasix dose was recently reduced from 80 mg BID to 40mg BID due to
worsening renal function while on the higher dosing. Currently, CXR shows moderate size right pleural effusion and she underwent IR thoracentesis on 03/16/2024 removing 950 cc of straw-colored exudative pleural fluid. She was admitted to telemetry
for further care and pulmonary service now consulted for additional management/recommendations.
Chronic conditions DEWAXER: CAD s/p CABG x 4 (11/29/2023), recurrent pleural effusions, history of NSTEMI s/p coronary stents, chronic HFrEF s/p ICD, history of complete heart block, hypertension, hyperlipidemia, DM type II, CKD, history of coccyx
pressure injury, history of constipation, lung nodules, thyroid nodule, right scoliosis, history of prolonged QTc, umbilical hernia, chronic anemia
Impression:
#Recurrent right-sided pleural effusion despite multiple thoracenteses now s/p thoracentesis on 03/16/2024 with 950 cc of straw-colored exudative pleural fluid removed - likely due to ADHF
#Shortness of breath due to above
#Acute on chronic HFpEF with moderate TR + mild�moderate MR
#Chronic anemia
#Increase eosinophil count (800 on 03/15/2024)
#Sternal wound with suspected osteomyelitis with wound culture growing monge-sensitive Pseudomonas aeruginosa
#CKD (baseline creatinine 1.3�1.4)
#History of NSTEMI s/p coronary stents
#History of complete heart block s/p PPM/ICD
#Hypertension
#Hyperlipidemia
#CAD s/p CABG x4 (11/29/2023)
Plan:
- She is s/p thoracentesis on 03/16 in IR with 950 cc of straw-colored, exudative fluid which is monocyte predominant with residual small right-sided pleural effusion seen after procedure
- Perhaps this is pseudo-exudative as she does take Lasix chronically
- Repeat CXR today (03/17) shows stable right-sided pleural effusion with no significant reaccumulation
- Will consider CT chest if additional lung parenchymal details are needed
- Consult IR for chest tube with eventual chemical pleurodesis using doxy vs bleomycin, however the R-lung needs to be dry before pleurodesis can be successful --> she did have bilateral pleural effusions even before her CABG, however her pleural
effusions have certainly worsened after her procedure, but this could be difficult to pinpoint an etiology from as she could have received IVF and other medications with a net (+) fluid balance, and she also developed an KELLIE s/p CABG. There is also
possibility that there is damage to her pleura where re-absorption of pleural fluid occurs and this could be explaining why she is having re-accumulation of her pleural fluid, however usually the pleural fluid that accumulates after CABG is left
sided and is more common in the first 30 days post-CABG and are typically small; she is behaving more like heart failure as cause of her pleural effusion buildup
- Continue IV lasix 40mg daily --> cardiology changed her to PO lasix starting tomorrow; trend sCr, monitor UOP and strict I/O
- Can consider limited echo
- Cardiology recs appreciated
- Her absolute eosinophil count is elevated however she denies a history of asthma, she is breathing more comfortably after the thoracentesis, there is no wheezing on exam, and no concern for parasitic infection
- Continue to trend; if patient becomes SOB with minimal reaccumulation of right-sided pleural effusion, then could consider starting systemic steroids with outpatient PFTs + FeNO
- Currently she feels well with improved SOB --> hold off on steroids at this time
- Maintain SpO2 >90-94% with supplemental O2 as needed
- Incentive spirometer encouraged
- Continue with meropenem given her sternal wound with suspected sternal osteomyelitis with wound culture growing Pseudomonas aeruginosa
- Although CXR shows findings concerning for mild right upper lobe + right perihilar pneumonia, she has no clinical symptoms consistent with pneumonia. Continue with antibiotics as stated above and continue to monitor
- Replete electrolytes with K>4, Mg>2
- Maintain euglycemia with goal BG >100 and <180
- prn nebulized bronchodilators - not currently bronchospastic
- DVT ppx: SCDs; her Hb is stable --> would start HSQ
Pulmonary service will continue to follow along.
Data:
CXR 03/15/2024:
Moderate right pleural effusion. Enlarged compared to prior CXR on 03/11/2024
Findings suggesting a mild right upper lobe and right perihilar pneumonia. Progressed in right upper lobe. Stable in the right perihilar region
Total time spent today was 39 minutes for this encounter. Time includes reviewing laboratory test/imaging results, reviewing pertinent medical records, obtaining and reviewing medical history, performing an appropriate exam, ordering medications,
tests and procedures. Time also includes documentation of this encounter, coordinating patient care and communicating with other healthcare professionals. Total time does not include separately billed tests performed on this date of service.
Subjective Data
-
Date of Service:
Date of Service: March 17, 2024
Chief Complaint: Pulmonary Follow Up
Subjective:
Negative unless mentioned above patient seen and evaluated today at bedside. Patient's daughter, Roxanne, at bedside and all questions were answered. Patient is sitting in a chair no acute distress. She feels well, denying SOB at rest. Also denies
chest pain, VILLEGAS, nausea, vomiting, fevers or chills.
Review of Systems
General: Other (Negative unless mentioned above)
Objective Data
Data Reviewed
Vital Signs / I&O / Oxygen:
Vital Signs
Temp Pulse Resp BP Pulse Ox
98.2 F 80 17 160/83 96
03/17/24 07:54 03/17/24 07:54 03/17/24 07:54 03/17/24 07:54 03/17/24 07:54
Intake and Output
03/16/24 03/17/24 03/18/24
06:59 06:59 06:59
Intake Total 120 / 120
Balance 120 / 120
SaO2 96
Nasal Cannula flow liters per 2
minute
Physical Exam
General: Respiratory Distress (negative), Comfortable, Chills (negative) and Sweats (negative)
HEENT: Normocephalic and Anicteric
Cardiovascular: S1-S2, Peripheral Edema (+1 lower extremity pitting edema bilaterally) and Other (Diminished cardiac sounds)
Respiratory: Wheeze (negative), Crackles (Bibasilar), Rhonchi (negative), Non-Labored Respirations and Other (Diminished breath sounds at right base)
GI: Soft, Non Distended, Non Tender and Normal Bowel Sounds
Neurology: Awake, Alert and Tremors (negative)
Skin: Warm, Dry, Cyanosis (negative) and Jaundice (negative)
Labs/Micro/Reports
Lab Data
03/17/24 08:14
03/17/24 08:14
Microbiology
03/16/24 12:26 Pleural Fluid Gram Stain - Preliminary
[2024-03-17 09:47] LABS: % Basophils 0.7 % (0-2); % Eosinophils 7.4 % (0-6); % Immature Granulocytes 0.3 % (0-0.5); % Lymphocytes 24.1 % (20.5-51.1); % Monocytes 6.6 % (1.7-9.3); % Neutrophils 60.9 % (42.2-75.2); Absolute Basophils 0.1 10^3/uL (0-0.2); Absolute Eosinophils 0.8 10^3/uL (0-0.7); Absolute Lymphocytes 2.5 10^3/uL (1.2-3.4); Absolute Monocytes 0.7 10^3/uL (0.1-0.6); Absolute Neutrophils 6.3 10^3/uL (1.4-6.5); Nucleated Red Blood Cells % 0 %
[2024-03-17 11:26] LABS: Glucose - Point of Care 203 mg/dl (70-99)
[2024-03-17] MEDS: FEOSOL 325 MG PO (12:08)
[2024-03-17] MEDS: NOVOLOG FLEXPEN-LOW RESISTANCE 2 UNITS SC (12:46)
--- NOTE | 2024-03-17 13:08 | CON.CAR ---
Consultation
Consultation Request
Date/Time Consultation Requested: March 17, 2024 10 AM
Date/Time Consultation Performed: March 17, 2024 1 PM
Requesting Provider: Hospitalist
Performing Provider: Jose Garcia
Reason for Consultation: Heart failure
Medical History
-
Chief Complaint: sob
History of Present Illness:
78y F with PMH significant for CAD s/p CABG, CHB s/p PPM, HFrEF with recovered EF, osteomyelitis of sternum (Pseudomonas) and recurrent R pleural effusion who presents to ED complaining of increased SOB over the past few days. She has had
multiple hospitalizations with most recent 1 being from February 09 to March 02 with decompensated heart failure and pleural effusions. She tells me that over the last several days she has had worsening shortness of breath. This culminated with
her having to come into the hospital. She is now status post thoracentesis with significant improvement. She does not feel that she has significant lower extremity edema, abdominal swelling, or other symptoms of heart failure.
Past Medical History
Past Medical History: Other (CAD s/p CABG, CHB s/p PPM, HFrEF with recovered EF, osteomyelitis of sternum (Pseudomonas) and recurrent R pleural effusion)
Past Surgical History: Other (CABG - October 2023 Cardiac Stents PPM / AICD Placement Cholecystectomy L Thoracentesis (12/15/23) R Thoracentesis (02/13/24) R Thoracentesis (03/06/24))
Social History
Tobacco: Non-Smoker
Alcohol: None
Drug: None
Living: Alone
Family History
Family History: Reviewed & Not Pertinent
Allergies / Home Medications
Allergy/AdvReac Type Severity Reaction Status Date / Time
No Known Allergies Allergy Verified 03/15/24 17:24
�Medication �Instructions �Recorded �Confirmed �Type
aspirin 81 mg chewable tablet 81 mg PO DAILY Heart 01/12/24 03/15/24 Rx
disease/condition #30 tabs
ascorbic acid (vitamin C) 500 mg 500 mg PO DAILY@1200 Supplement 02/10/24 03/15/24 History
tablet (Vitamin C)
insulin glargine 100 unit/mL (3 4 unit SC HS Diabetes 02/10/24 03/15/24 History
mL) subcutaneous pen (Lantus
Solostar U-100 Insulin)
multivitamin with folic acid 400 1 tab PO DAILY Supplement 02/10/24 03/15/24 History
mcg tablet (Tab-A-Danae)
acetaminophen 325 mg tablet 650 mg PO Q4HPRN PRN mild pain 03/06/24 03/15/24 History
(Tylenol)
bisacodyl 5 mg tablet,delayed 10 mg PO DAILYPRN PRN constipation 03/06/24 03/15/24 History
release (Dulcolax (bisacodyl))
clopidogrel 75 mg tablet 75 mg PO DAILY Blood Clot 03/06/24 03/15/24 History
Prevention/Tx
sennosides 8.6 mg tablet (senna) 8.6 mg PO BID Constipation 03/06/24 03/15/24 History
Lactobac no.2-Bifidobac no.1-S. 1 cap PO DAILY probiotic -can get 03/11/24 03/15/24 Rx
thermo 112.5 billion cell capsule over the counter #0 caps
(Visbiome)
carvedilol 12.5 mg tablet 12.5 mg PO BID Heart 03/11/24 03/15/24 Rx
disease/condition 30 days #60 tabs
docusate sodium 100 mg capsule 100 mg PO BID Constipation 30 days 03/11/24 03/15/24 Rx
(Colace) #60 caps
ferrous sulfate 325 mg (65 mg 325 mg PO DAILY@1200 Supplement 30 03/11/24 03/15/24 Rx
iron) tablet (FeroSul) days #30 tabs
folic acid 1 mg tablet 1 mg PO DAILY Supplement 1 month 03/11/24 03/15/24 Rx
#30 tabs
furosemide 20 mg tablet 20 mg PO BID AT 0800,1600 Fluid 03/11/24 03/15/24 Rx
retention/Swelling 30 days #60 tabs
gabapentin 300 mg capsule 300 mg PO HS Pain 30 days #30 caps 03/11/24 03/15/24 Rx
isosorbide mononitrate 30 mg 30 mg PO DAILY Heart 03/11/24 03/15/24 Rx
tablet,extended release 24 hr Disease/Condition 30 days #30 tabs
meropenem 500 mg intravenous 500 mg IV Q12H Infection 19 days 03/11/24 03/15/24 Rx
solution #38 doses
hydralazine 50 mg tablet 50 mg PO TID@0800,1400,2100 Blood 03/15/24 03/15/24 History
pressure
rosuvastatin 20 mg tablet 20 mg PO HS High Cholesterol 03/15/24 03/15/24 History
Review of Systems
-
All other systems: Negative unless noted
Physical Exam
Vital Signs
Temp Pulse Resp BP Pulse Ox
98.0 F 80 17 127/73 97
03/17/24 10:45 03/17/24 10:45 03/17/24 10:45 03/17/24 10:45 03/17/24 10:45
Lab Results
03/17/24 08:14
03/17/24 08:14
Troponin I 0.016 ng/ml 03/15/24 18:34
Qro-I-Xhnuuquhfcu Pept 5590 pg/ml 03/15/24 18:34
Physical Exam
General: Well Developed and Well Nourished
HEENT: Normocephalic
Respiratory: Clear and Non Labored Respirations
Cardiac: S1/S2 and Regular Rhythm
GI: Soft
Musculoskeletal: No Edema
Skin: Warm and Dry
Neuro: AO x 3
Psych: Calm
Impression / Plan
-
A/P: 78y F with PMH significant for CAD s/p CABG, CHB s/p PPM, HFrEF with recovered EF, osteomyelitis of sternum (Pseudomonas) and recurrent R pleural effusion who presents to ED complaining of increased SOB over the past few days.
Recurrent pleural effusion
- s/p thoracentesis
- plan for pleurodesis tomorrow
- pulmonary following
Cardiomyopathy s/p ICD: acute on chronic HFpEF -> She does not appear to have too much volume overload would switch to lasix 40 mg daily tomorrow
- Previous ejection fraction 30%, now improved to 55-60% on echocardiogram yesterday with mild to moderate MR and moderate TR.
- Continue Lasix 20 mg daily.
- Further GDMT has been limited by renal insufficiency: will consider titration as outpt
- would change to PO lasix 40 mg daily which she can go home on
- cont home meds
.
CAD s/p recent CABG:
-Residual wound dehiscence.
-Patient previously had wound VAC follow-up with CT surgery
- on Abx
CHB
-PPM
Anemia.
- Management as per primary team.
Data Reviewed
-
EKG: Tracing Personally Visualized and interpreted (sr)
Radiology: Report Reviewed by me
Medical Tests (Nuc Med, Echo etc): Report Reviewed by me
Labs: Labs Reviewed by me
--- NOTE | 2024-03-17 13:22 | W.PN.HOSP.TC ---
Today's Communication/Plan
-
Continue Lasix
repeat chest x-ray
pleurodesis with IR and chest tube placement and instillation of Doxy Brandon mycin at discretion of baker paint
cardiology consult to evaluate for cardiac etiology
Assessment / Plan
Assessment / Plan
Patient is a 78y F with PMH significant for ASCVD s/p CABG in October 2023 with sternal wound dehiscence, Pseudomonas osteomyelitis, CKD III and CHF who presents to ED complaining of SOB. No other complaints.
Recurrent right pleural effusion
Acute on chronic HFpEF (EF recovered on most recent Echo 50-55% on 02/13/24)
- Subjective dyspnea -okay on 2 L of oxygen -> Off O2 after thora. Comfortable on room air
- 40 mg IV Lasix once daily
- Follow I's and O's and daily weights
� Repeat thoracentesis drained 950 cc. Exudative fluid
- Repeat chest x-ray shows significant improvement
� Previous pleural fluid studies revealed exudative transudate with no malignant cells noted
� Pulmonology will consider pleurodesis with IR with a chest tube instillation of Doxy versus bleomycin
� Cardiology consult per pulm as suspects fluid accumulation could be secondary to CHF
- Consider limited echo at cardiology discretion
Eosinophilia
� Absolute eosinophil count elevated, trend is stable
- No history of asthma, no wheezing on exam, no was concern for parasite infection
� Monitor
CKD stage IIIa
- Stable, creatinine at near known baseline
-Follow
Sternal osteomyelitis/Pseudomonas
� Stable. Afebrile. WBC within normal limits
� Continue current meropenem dose�scheduled to continue through 03/30/24
ASCVD
-Continue ASA and statin
-No complaints of chest pain, palpitations
Anemia of chronic disease
� Stable. Hemoglobin appears near recent baseline
- Continue iron supplements
- Compression device for DVT prophylaxis given bleeding issues noted during prior hospital stay
Heart block
� AICD
Benign hypertension
� Continue home meds with holding parameters to avoid any hypotensive episodes during diuresis
Type 2 diabetes
� 01/22 hemoglobin A1c 6.3
� SSI if needed
Deconditioning
� PT OT
DVT prophylaxis compression device
Full Code
Anticipated Discharge: 24 - 48 hours
Subjective/Interval History
-
Date of Service: March 17, 2024
Objective Data
-
Labs:
Laboratory Results
03/17/24
08:14
WBC 10.5
Hgb 8.2 L
Hct 26.0 L
Plt Count 404 H
Sodium 146 H
Potassium 3.9
Chloride 105
Carbon Dioxide 30
BUN 42 H
Creatinine 1.2 H
Glucose 102 H
Calcium 8.6
Vital Signs:
Vital Signs
Temp Pulse Resp BP Pulse Ox
98.0 F 80 17 127/73 97
03/17/24 10:45 03/17/24 10:45 03/17/24 10:45 03/17/24 10:45 03/17/24 10:45
I&O
03/16/24 03/17/24 03/18/24
06:59 06:59 06:59
Intake Total 120 / 120
Balance 120 / 120
Review of Systems
-
History Source: Patient
Constitutional: Reports No Symptoms
EENT: Reports No Symptoms Reported
Respiratory: Reports No Symptoms
Cardiac: Reports No Symptoms
Abdomen/GI: Reports No Symptoms
Genitourinary: Reports No Symptoms
Neuro: Reports No Symptoms
Physical Exam
-
General: Well Developed and Comfortable
HEENT: Normocephalic
Respiratory: Clear to Auscultation
Cardiac: Regular Rhythm and S1/S2
GI: Soft, Nontender, Nondistended and Normal Bowel Sounds
Musculoskeletal: No Edema
Skin: Warm
Neuro: AO x 3
Psych: Calm
--- NOTE | 2024-03-17 13:26 | W.PN.HOSP.TC ---
Today's Communication/Plan
-
Cardiology consult
Pleurodesis plans per pulm
Assessment / Plan
Assessment / Plan
Patient is a 78y F with PMH significant for ASCVD s/p CABG in October 2023 with sternal wound dehiscence, Pseudomonas osteomyelitis, CKD III and CHF who presents to ED complaining of SOB. No other complaints.
Recurrent right pleural effusion
Acute on chronic HFpEF (EF recovered on most recent Echo 50-55% on 02/13/24)
- Subjective dyspnea -okay on 2 L of oxygen
- 40 mg IV Lasix once daily
- Follow I's and O's and daily weights
� IR consulted for repeat thoracentesis
� Previous pleural fluid studies revealed exudative transudate with no malignant cells noted
� Pulmonology consulted as this is a recurrent issue
CKD stage IIIa
- Stable, creatinine at near known baseline
-Follow
Sternal osteomyelitis/Pseudomonas
� Stable. Afebrile. WBC within normal limits
� Continue current meropenem dose�scheduled to continue through 03/30/24
ASCVD
-Continue ASA and statin
-No complaints of chest pain, palpitations
Anemia of chronic disease
� Stable. Hemoglobin appears near recent baseline
- Continue iron supplements
- Compression device for DVT prophylaxis given bleeding issues noted during prior hospital stay
Heart block
� AICD
Benign hypertension
� Continue home meds with holding parameters to avoid any hypotensive episodes during diuresis
Type 2 diabetes
� 01/22 hemoglobin A1c 6.3
� SSI if needed
Deconditioning
� PT OT
DVT prophylaxis compression device
Full Code
Anticipated Discharge: 24 - 48 hours
Subjective/Interval History
-
Date of Service: March 17, 2024
Objective Data
-
Labs:
Laboratory Results
03/17/24
08:14
WBC 10.5
Hgb 8.2 L
Hct 26.0 L
Plt Count 404 H
Sodium 146 H
Potassium 3.9
Chloride 105
Carbon Dioxide 30
BUN 42 H
Creatinine 1.2 H
Glucose 102 H
Calcium 8.6
Vital Signs:
Vital Signs
Temp Pulse Resp BP Pulse Ox
98.0 F 80 17 127/73 97
03/17/24 10:45 03/17/24 10:45 03/17/24 10:45 03/17/24 10:45 03/17/24 10:45
I&O
03/16/24 03/17/24 03/18/24
06:59 06:59 06:59
Intake Total 120 / 120
Balance 120 / 120
--- NOTE | 2024-03-17 13:27 | W.PN.UPDATE ---
Update Note
Progress Note Update
Seen and examined by me independently in collaboration with the medical claims specialist [employer].
Lab data and imaging data reviewed.
Addendum as below :Feeling improved with breathing post thoracentesis which took away 950 cc of straw-colored pleural fluid.
Appreciate pulmonary input. Repeat chest x-ray today. Ongoing evaluation for possible pleurodesis on this admission. DW pulm today.
Obtain cardiology input to optimize diuretic treatments.
[2024-03-17 16:21] LABS: Glucose - Point of Care 168 mg/dl (70-99)
[2024-03-17] MEDS: NOVOLOG FLEXPEN-LOW RESISTANCE 1 UNITS SC (17:38)
[2024-03-17] MEDS: NEURONTIN 300 MG PO (21:28)
[2024-03-17] MEDS: CRESTOR 20 MG PO (21:28)
[2024-03-17 21:34] LABS: Glucose - Point of Care 140 mg/dl (70-99)
[2024-03-18] VITALS (14 sets, daily range): BP systolic 70–169; BP diastolic 65–96; BMI 25.2
[2024-03-18 05:03] LABS: % Basophils 0.5 % (0-2); % Eosinophils 8.1 % (0-6); % Immature Granulocytes 0.3 % (0-0.5); % Lymphocytes 27.3 % (20.5-51.1); % Monocytes 7.3 % (1.7-9.3); % Neutrophils 56.5 % (42.2-75.2); Absolute Basophils 0.1 10^3/uL (0-0.2); Absolute Eosinophils 0.8 10^3/uL (0-0.7); Absolute Lymphocytes 2.6 10^3/uL (1.2-3.4); Absolute Monocytes 0.7 10^3/uL (0.1-0.6); Absolute Neutrophils 5.5 10^3/uL (1.4-6.5); Hematocrit 24.8 % (37.0-47.0); Hemoglobin 7.8 g/dL (12.0-16.0); Mean Corp Hgb Conc. 31.5 g/dL (33.0-37.0); Mean Corpuscular Hgb 26.9 pg (27.0-31.0); Mean Corpuscular Volume 85.5 fL (81.0-99.0); Mean Platelet Volume 8.1 fL (7.4-10.4); Nucleated Red Blood Cells % 0 %; Platelet Count 361 10^3/uL (130-400); Red Cell Dist. Width 16.8 % (11.5-14.5); White Blood Cell Count 9.7 10^3/uL (4.8-10.8)
[2024-03-18 05:29] LABS: Blood Urea Nitrogen 42 mg/dl (7-17); Calcium 8.5 mg/dl (8.4-10.2); Carbon Dioxide 30 mmol/L (22-30); Chloride 103 mmol/L (98-107); Estimated Creatinine Clearance 30 ml/min; Glucose 96 mg/dl (70-99); Potassium 3.7 mmol/L (3.5-5.1); Sodium 145 mmol/L (135-145); eGFR 46.62
--- NOTE | 2024-03-18 05:55 | FALL ---
Addendum entered by Kate Hernandez RN 03/18/24 06:00:
Description of Fall: Ambulating to bathroom with PCT. Patient described losing her footing and falling on her buttocks. She did not hit her head. PCT witnessed fall.
Injuries Noted: None
Action Taken: bed alarm
Name of Provider Notified: LULU Catherine
Original Note:
Description of Fall: Ambulating to bathroom with PCT. Patient described losing her footing and falling on her buttocks. She did not hit her head. PCT witnessed fall.
Injuries Noted: None
Action Taken: bed alarm
Name of Provider Notified: Lc Pepper
[2024-03-18 06:15] LABS: Glucose - Point of Care 117 mg/dl (70-99)
--- NOTE | 2024-03-18 06:38 | W.PN.UPDATE ---
Addendum entered and electronically signed by LULU Catherine 03/18/24 06:46:
no cuts, bruises, hematoma noted.
Original Note:
Update Note
Progress Note Update
RN notified PRODUCTION SHIFT SUPERVISOR, patient had a fall. Patient seen and evaluated. patient reported she was in the bathroom with the tech, she missed the bar to hold and fell back onto the tech. Tech explained, she caught the patient and both went softly on to the
floor on left side of the hip. Patient and tech denies patient hitting the head. stable VS, Denies dizziness, loss of balance or shortness of breath. Addressed fall precautions.
--- NOTE | 2024-03-18 07:53 | W.PN.CD ---
Today's Communication / Plan
-
Switch to PO Lasix 40mg daily
Can increase to BID dosing this afternoon pending findings of pleurodesis
If pulm thinks ok, will go back to home dose (20mg BID) tomorrow
Impression / Plan
-
A/P: 78y F with PMH significant for CAD s/p CABG, CHB s/p PPM, HFrEF with recovered EF, osteomyelitis of sternum (Pseudomonas) and recurrent R pleural effusion who presents to ED complaining of increased SOB over the past few days, s/p
thoracentesis with plan for pleurodesis.
Recurrent pleural effusion
- s/p thoracentesis
- plan for pleurodesis today
- pulmonary following
Cardiomyopathy s/p ICD: acute on chronic HFpEF -> She appears euvolemic; switch to lasix 40 mg daily today (can go to BID for a few days if pulm thinks necessary based on pleurodesis findings)
- Previous ejection fraction 30%, now improved to 55-60% on echocardiogram this admission with mild to moderate MR and moderate TR.
- Further GDMT has been limited by renal insufficiency: will consider titration as outpt
- cont home meds
CAD s/p recent CABG:
-Residual wound dehiscence.
-Patient previously had wound VAC follow-up with CT surgery
- on Abx
CHB
-PPM
Anemia.
- Management as per primary team.
Subjective: She feels okay today. Went for a walk in the halls yesterday with no dyspnea after her thoracentesis. Shortness of breath has improved. She is nervous about her procedure today. No events on telemetry.
Physical Exam
Vital Signs/Labs
Vital Signs
Temp Pulse Resp BP Pulse Ox
98.4 F 75 18 167/88 95
03/18/24 06:14 03/18/24 06:14 03/18/24 06:14 03/18/24 06:14 03/18/24 06:14
03/17/24 03/18/24 03/19/24
06:59 06:59 06:59
Actual Weight 59.511 kg 60.441 kg
03/18/24 04:53
03/18/24 04:53
03/15/24
18:34
Mtp-C-Drzxqulpbes Pept 5590
LAB Results
03/15/24
18:34
Troponin I 0.016
Physical Exam
Constitutional: No acute distress and Comfortable
Cardiovascular: Rhythm & rate is regular, Pedal edema is absent, JVD pressure is normal, S1S2 is normal and Murmur/rub/gallop absent
Respiratory: Respiratory effort normal and Other (Decreased breath sounds at bilateral bases)
Data Reviewed
-
Date of Service: March 18, 2024
Medical Decision Making: Reviewed Test Results, Independent Historian Assessment, Test Interpretation and Review of Case with other Provider
EKG: Tracing Personally Visualized and interpreted
Echo: Report Reviewed by me
X-Ray/CT/US/MRI/NUC/PET: Image Personally Visualized and interpreted
Labs: Labs Reviewed by me
[2024-03-18 08:30] LABS: Glucose - Point of Care 128 mg/dl (70-99)
[2024-03-18] MEDS: NOVOLOG FLEXPEN-LOW RESISTANCE SC ×3 (08:53→16:50)
[2024-03-18] MEDS: VISBIOME 1 CAP PO (08:54)
[2024-03-18] MEDS: COLACE 100 MG PO ×2 (08:54→20:59)
[2024-03-18] MEDS: PLAVIX 75 MG PO (08:54)
[2024-03-18] MEDS: APRESOLINE 50 MG PO ×3 (08:54→21:00)
[2024-03-18] MEDS: SENOKOT 8.6 MG PO ×2 (08:54→21:02)
[2024-03-18] MEDS: LOW STRENGTH ASPIRIN 81 MG PO (08:54)
[2024-03-18] MEDS: FOLVITE 1 MG PO (08:54)
[2024-03-18] MEDS: LASIX 40 MG PO (08:54)
[2024-03-18] MEDS: IMDUR (EXTENDED RELEASE) 30 MG PO (08:54)
[2024-03-18] MEDS: COREG 12.5 MG PO ×2 (08:55→21:01)
[2024-03-18] MEDS: MERREM 500 MG IV ×2 (09:00→21:01)
[2024-03-18] MEDS: STERILE WATER FOR INJECTION 10 ML IV ×2 (09:00→21:01)
--- NOTE | 2024-03-18 09:17 | W.PN.PUL3 ---
Today's Communication / Plan
-
For chest tube placement today by IR, we discussed expectations with management
Can trial lytics if indicated, follow output
Serial imaging post placement
Continued on IV abx and IV diuresis
Discussed with patient and daughter at bedside in IR suite
Assessment
-
78-year-old female with a past medical history of CAD s/p CABG x 4 (11/29/2023), recurrent pleural effusions (R>L), chronic HFrEF s/p ICD, history of complete heart block, hypertension, hyperlipidemia, DM type II, CKD, lung nodules, thyroid nodule,
history of prolonged QTc, and history of NSTEMI s/p coronary stents who presents with worsening shortness of breath. She was recently discharged from [facility]. She has had multiple thoracenteses since her CABG with her first and 12/15/2023, and
then again on 02/13/2024 and last done on 03/06/2024. She reports that she has been having ankle swelling for last several days as well as left arm swelling. Her Lasix dose was recently reduced from 80 mg BID to 40mg BID due to worsening renal
function while on the higher dosing. Currently, CXR shows moderate size right pleural effusion and she underwent IR thoracentesis on 03/16/2024 removing 950 cc of straw-colored exudative pleural fluid. She was admitted to telemetry for further
care and pulmonary service now consulted for additional management/recommendations.
Chronic conditions VAMPER: CAD s/p CABG x 4 (11/29/2023), recurrent pleural effusions, history of NSTEMI s/p coronary stents, chronic HFrEF s/p ICD, history of complete heart block, hypertension, hyperlipidemia, DM type II, CKD, history of coccyx
pressure injury, history of constipation, lung nodules, thyroid nodule, right scoliosis, history of prolonged QTc, umbilical hernia, chronic anemia
Impression:
#Recurrent right-sided pleural effusion despite multiple thoracenteses now s/p thoracentesis on 03/16/2024 with 950 cc of straw-colored exudative pleural fluid removed - likely due to ADHF
#Shortness of breath due to above
#Acute on chronic HFpEF with moderate TR + mild�moderate MR
#Chronic anemia
#Increase eosinophil count (800 on 03/15/2024)
#Sternal wound with suspected osteomyelitis with wound culture growing monge-sensitive Pseudomonas aeruginosa
#CKD (baseline creatinine 1.3�1.4)
#History of NSTEMI s/p coronary stents
#History of complete heart block s/p PPM/ICD
#Hypertension
#Hyperlipidemia
#CAD s/p CABG x4 (11/29/2023)
Plan:
She is s/p thoracentesis on 03/16 in IR with 950 cc of straw-colored, exudative fluid which is monocyte predominant with residual small right-sided pleural effusion seen after procedure
Perhaps this is pseudo-exudative as she does take Lasix chronically
Repeat CXR (03/17) shows stable right-sided pleural effusion with no significant reaccumulation
Pleural fluid culture 03/16/24 negative; 02/13/24 cyto negative
Consult IR for chest tube with eventual chemical pleurodesis if indicated
Will follow up daily imaging, reviewed with patient and daughter
Monitor output post placement
Continue IV lasix 40mg daily --> cardiology changed her to PO lasix starting tomorrow; trend sCr, monitor UOP and strict I/O
Can consider limited echo
Cardiology recs appreciated
Her absolute eosinophil count is elevated however she denies a history of asthma
Continue to trend; if patient becomes SOB with minimal reaccumulation of right-sided pleural effusion, then could consider starting systemic steroids with outpatient PFTs + FeNO
Currently she feels well with improved SOB --> hold off on steroids at this time
Maintain SpO2 >90-94% with supplemental O2 as needed, currently stable on RA
Incentive spirometer encouraged
Continue with meropenem given her sternal wound with suspected sternal osteomyelitis with wound culture growing Pseudomonas aeruginosa
Although CXR shows findings concerning for mild right upper lobe + right perihilar pneumonia, she has no clinical symptoms consistent with pneumonia
Continue with antibiotics as stated above and continue to monitor
- Replete electrolytes with K>4, Mg>2
- Maintain euglycemia with goal BG >100 and <180
- prn nebulized bronchodilators - not currently bronchospastic
- DVT ppx: SCDs; her Hb is stable --> would start HSQ
Pulmonary service will continue to follow along.
Data:
CXR 03/17/24- Stable small right pleural effusion with associated probable atelectasis
CXR 03/15/2024: Moderate right pleural effusion. Enlarged compared to prior CXR on 03/11/2024. Findings suggesting a mild right upper lobe and right perihilar pneumonia. Progressed in right upper lobe. Stable in the right perihilar region
CT Chest 02/17/24- 1. 1.5 cm soft tissue wound anterior to the xiphoid process. Moderate soft tissue edema anterior and posterior to the sternum which appears to have increased since 01/06/2024 consistent with soft tissue infection.
2. Incompletely healed midline sternotomy with sternal wires remaining in place. No CT evidence for wire fracture or sternal dehiscence. No CT evidence for interval change in appearance of the xiphoid process and inferior sternum since the prior
exam performed 01/06/2024.
3. Interval enlargement of a MODERATE RIGHT PLEURAL EFFUSION.
4. LARGE RIGHT LOWER LOBE AIRSPACE CONSOLIDATION (either right lower lobe pneumonia or atelectasis.)
5. New band of horizontal atelectasis adjacent to the right minor fissure.
6. Small left pleural effusion.
7. Mild cardiomegaly.
8. Recent CABG surgery.
9. Mild mediastinal lymphadenopathy.
10. 1.6 cm left lobe thyroid nodule.
11. Left-sided AICD in place.
-----
Total time spent today was 50 minutes for this encounter. Time includes reviewing laboratory test/imaging results, reviewing pertinent medical records, obtaining and reviewing medical history, performing an appropriate exam, ordering medications,
tests and procedures. Time also includes documentation of this encounter, coordinating patient care and communicating with other healthcare professionals. Total time does not include separately billed tests performed on this date of service.
Subjective Data
-
Date of Service:
Date of Service: March 18, 2024
Chief Complaint: Pulmonary Follow Up
Subjective:
No new events ON, stable on RA
Daughter at bedside, seen down in IR suite
For chest tube placement
Objective Data
Data Reviewed
Vital Signs / I&O / Oxygen:
Vital Signs
Temp Pulse Resp BP Pulse Ox
97.6 F 81 18 141/96 96
03/18/24 07:12 03/18/24 08:55 03/18/24 07:12 03/18/24 08:55 03/18/24 07:12
Intake and Output
03/17/24 03/18/24 03/19/24
06:59 06:59 06:59
Intake Total 720 / 720
Balance 720 / 720
SaO2 96
Nasal Cannula flow liters per 2
minute
Physical Exam
General: Respiratory Distress (negative), Comfortable, Chills (negative) and Sweats (negative)
HEENT: Normocephalic, Anicteric and Moist Mucous Membranes
Cardiovascular: S1-S2, Regular Rhythm, Peripheral Edema (+1 lower extremity pitting edema bilaterally) and Other (Diminished cardiac sounds)
Respiratory: Wheeze (negative), Rhonchi (negative), Non-Labored Respirations and Other (Diminished breath sounds at right base)
GI: Soft, Non Distended, Non Tender and Normal Bowel Sounds
Neurology: Awake, Alert, Oriented, No Motor Deficits and Tremors (negative)
Skin: Warm, Dry, Cyanosis (negative) and Jaundice (negative)
Labs/Micro/Reports
Lab Data
03/18/24 04:53
03/18/24 04:53
Microbiology
03/16/24 12:26 Pleural Fluid Body Fluid Culture - Preliminary
No Growth After 18-24 Hours
03/16/24 12:26 Pleural Fluid Gram Stain - Preliminary
--- NOTE | 2024-03-18 10:22 | WOUNDNOTE ---
[facility] RN note: Patient admitted with pleural effusion. Patient has supportive daughters. Daughter does her wound care at home.
See H&P for complete history.
PMH: CABG, thoracentesis, CKD3, DM, HTN, osteomyelitis of sternum on Meropenem till 03/30/24.
Wound Location and type/assessment: Patient admitted with: healing small sternal wound, small slit appearance that appears superficial when probed with a cotton tipped applicator. Sacral/coccyx stage 1 pressure injury.
Appetite: good.
Pressure redistribution devices in place: [employer] Accumax. Air chair cushion. Patient and daughter Roxanne requesting an air overlay. Discussed with ROBERT Molina who plans to apply today. Patient moves self in bed. She is aware not to get out of bed by
herself.
Plan: Sternal dressing changed (current treatment is Iodoform gauze, non woven gauze, Tegaderm daily). Heels off bed with pillow. Protective silicone border foam applied to sacrum. Patient instructed pressure injury prevention measures.
Will confirm orders with hospitalist and discussed with ROBERT Ko.
Updated care plan and will follow as needed.
Note to case management of equipment requested for discharge:
Recommend follow up at wound care center upon discharge.
[2024-03-18 12:18] LABS: Glucose - Point of Care 113 mg/dl (70-99)
[2024-03-18] MEDS: FEOSOL 325 MG PO (13:15)
[2024-03-18 14:24] LABS: Glucose - Point of Care 120 mg/dl (70-99)
[2024-03-18 16:36] LABS: Glucose - Point of Care 130 mg/dl (70-99)
--- NOTE | 2024-03-18 17:44 | CM ---
Addendum entered by CODY Marmolejo 03/19/24 12:22:
Correction. Patient current with [facility] not [facility] and would like for resumption of care.
Original Note:
Reviewed chart, met with patient and two of her daughters who were at bedside to obtain information for assessment. Patient's daughter stated that patient was at [facility] and then was admitted from there. Prior to that she lives with her daughter in a
one story home with ramp access. She is current with [facility] and [facility]. She has a PICC. Will update [facility] with new clinical. Patient's daughter would like for patient to return home when stable with [facility] and [facility]. She has been to
[facility] in the past but family doesn't want SNF. Patient's daughter stated that patient has a supportive family and they will all be able to take care of patient when she returns home.
She has a walker but denied any other DME.
She has a prescription plan and uses, [facility] in [place] for all of her medications.
Her PCP is Anne Marie Choi.
Plan: Case management will follow and assist with discharge planning. Home with [facility] and [facility] when stable.
--- NOTE | 2024-03-18 17:50 | W.PN.HOSP.TC ---
Addendum entered and electronically signed by Odell Minaya MD 03/19/24 05:20:
Attending Addendum-
I saw and evaluated the patient. I reviewed the resident�s note and agree with findings and plan as documented in the resident�s note. Sub: Feels fatigued. Complains of mild pain @ CT site. Seen with daughter present. Full 12 point ROS reviewed and
negative except as documented Exam: Vitals reviewed in chart GEN-NAD heart RRR chest: sternal incision CDI lungs absent BS @ RLL CT in place serosang fluid LE 1+ b/l LE edema
Plan:
# Recurrent right pleural effusion
� 03/16- thoracentesis 950 cc. Exudative fluid
- CT placed 03/18 - fluid sent for analysis
� Pulmonology T/C consider pleurodesis
# Acute on chronic HFpEF exacerbation
- recent EF 50-55%
- IV lasix to transition to PO 03/19
- 40 mg IV Lasix once daily change to PO in AM
- Follow I's and O's and daily weights
- cards on board
# Eosinophilia
� Absolute eosinophil count elevated
� Monitor
# CKD stage IIIa
- Stable, creatinine @ baseline of 1.3
- Follow
# Sternal osteomyelitis/Pseudomonas
� Stable. Afebrile.
� Continue current meropenem dose�> 03/30/24
- trend CBC daily
- wound care
# CAD
- s/p CABG 11/21
-Continue ASA, plavix, coreg, and rosuvastatin
- stable
# Anemia of chronic disease
� HB 7.8
- transfuse for HB < 7.5
- Continue iron supplements
- Compression device for DVT prophylaxis given bleeding issues noted during prior hospital stay
# Heart block
� PPM/AICD
# Benign hypertension
� Continue imdur and hydralazine
# IDDM
� 01/22 hemoglobin A1c 6.3
- hold home dose lantus 4u q hs for now
� SSI if needed
# Deconditioning
� PT OT
DVT prophylaxis compression device
Full Code
Dispo may need SNF on DC
Time spent coordinating care, review of plan of care with resident, personally reviewed records in EMR, med rec, consults, notes, labs, radiology, d/w nursing pulm and cards� 59 mins
Original Note:
Today's Communication/Plan
-
Follow-up with pulmonology
Assessment / Plan
Assessment / Plan
Right pleural effusion
HFpEF:
-Her thoracocentesis on 03/16 shows 950 cc of straw-colored, exudative fluid which is monocyte predominant
-Repeat chest x-ray 03/17 shows right-sided pleural effusion with no significant reaccumulation
-She had a chest tube placed today with IR, it was draining serosanguineous fluid
-Continue on IV Lasix 40 mg, she is going to change to p.o. Lasix starting tomorrow
-Trend creatinine
-Will follow-up with pulmonology in regards to pleurodesis
Fall in elderly:
-She fell today in the morning while using the bathroom and could not grab onto the guard rail and fell onto her buttocks
-Rates pain as an 8 out of 10 in both the buttocks and hips
-Ordered tramadol 50 mg every 8 hours as needed
-Increase the dose of Tylenol to 1000 mg every 8 hours with a maximum daily dose of 3000 g
Eosinophilia:
� Absolute eosinophil count elevated space at 0.8, consider a possible infectious disease consult
-No previous history of asthma, allergies, parasitic infections
� Trend eosinophil count
CKD stage IIIa
-Creatinine is 1.2 and near baseline
-Replete potassium and magnesium if necessary
-Trend
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
-WBC count is 9.7 and normal, patient is afebrile
-Sternal dressing changed today using Tegaderm daily
� Continue current meropenem dose till 03/30/24
Anemia of chronic disease
� Hemoglobin is around 7.8 and is baseline
-Continue to observe and if less than 7 then blood transfusion is necessary
Hypertension
� Continue home meds
Type 2 diabetes
- 01/22 hemoglobin A1c 6.3
- Well-controlled
- Continue home medications
Deconditioning
� PT OT
DVT prophylaxis compression device
Full Code
Anticipated Discharge: 24 - 48 hours
Subjective/Interval History
-
Date of Service: March 18, 2024
Patient is a 78-year-old female who came from home, her primary care physician is Dr. Choi. She presented with shortness of breath. Patient has had multiple recent stays at [facility] most recently from 02/09 to 03/02 for decompensated
heart failure then discharged to [facility] from 03/02 to 03/12. Ever since discharge she felt progressively worsening shortness of breath, swelling in the left arm and bilateral legs. She has had multiple thoracocentesis due to recurrent pleural
effusions status post CABG x 4, the most recent on 03/06. Pulmonary was consulted and tara 950 cc of straw-colored exudative fluid, but she is due for a chemical pleurodesis patient is comfortable on room air and is saturating at 96%. She is on
meropenem till 03/30 for sternal osteomyelitis caused by Pseudomonas infection. She had a chest tube placed today, which is draining serosanguineous fluid. No dizziness, shortness of breath, chest pain, nausea.
She also had a fall this morning in the bathroom because she she missed grabbing the guardrail. She has pain in the hips and buttocks that is rated as moderate in intensity.
Objective Data
-
Vital Signs:
Vital Signs
Temp Pulse Resp BP Pulse Ox
97.8 F 77 17 160/87 96
03/18/24 17:15 03/18/24 17:15 03/18/24 17:15 03/18/24 17:15 03/18/24 17:15
I&O
03/17/24 03/18/24 03/19/24
06:59 06:59 06:59
Intake Total 720 / 720
Balance 720 / 720
Review of Systems
-
History Source: Patient and Family
Constitutional: Denies Fever or Chills
Respiratory: Reports Trouble Breathing; Denies Cough, Hemoptysis or Wheezing
Cardiac: Reports Chest Pain; Denies Palpitations, Syncope or PND
Abdomen/GI: Denies Abdominal Pain, Nausea, Vomiting, Diarrhea or Constipated
Physical Exam
-
Respiratory: Wheezes
Cardiac: Regular Rhythm and S1/S2; Negative Murmur
GI: Soft, Nontender, Nondistended and Normal Bowel Sounds
Skin: Warm and Dry
Neuro: Awake, Alert, Oriented and AO x 3
[2024-03-18] MEDS: TYLENOL 1000 MG PO (18:39)
[2024-03-18] MEDS: CRESTOR 20 MG PO (21:00)
[2024-03-18] MEDS: NEURONTIN 300 MG PO (21:02)
[2024-03-18 22:10] LABS: Glucose - Point of Care 218 mg/dl (70-99)
[2024-03-19] VITALS (7 sets, daily range): BP systolic 107–152; BP diastolic 60–80; PULSE 79; O2SAT 96; BMI 25.6
[2024-03-19] MEDS: TYLENOL 1000 MG PO ×3 (02:08→20:48)
[2024-03-19 06:42] LABS: Hematocrit 25.7 % (37.0-47.0); Hemoglobin 7.9 g/dL (12.0-16.0); Mean Corp Hgb Conc. 30.7 g/dL (33.0-37.0); Mean Corpuscular Hgb 27.1 pg (27.0-31.0); Mean Corpuscular Volume 88.3 fL (81.0-99.0); Mean Platelet Volume 8.3 fL (7.4-10.4); Platelet Count 378 10^3/uL (130-400); Red Blood Cell Count 2.91 10^6/uL (4.20-5.40); Red Cell Dist. Width 16.9 % (11.5-14.5); White Blood Cell Count 9.5 10^3/uL (4.8-10.8)
[2024-03-19 07:18] LABS: ALT (SGPT) 16 U/L (0-35); AST (SGOT) 21 U/L (14-36); Albumin 2.8 g/dl (3.5-5.0); Alkaline Phosphatase 62 U/L (38-126); Blood Urea Nitrogen 41 mg/dl (7-17); Calcium 8.6 mg/dl (8.4-10.2); Carbon Dioxide 30 mmol/L (22-30); Chloride 104 mmol/L (98-107); Estimated Creatinine Clearance 27 ml/min; Glucose 88 mg/dl (70-99); Potassium 3.8 mmol/L (3.5-5.1); Sodium 144 mmol/L (135-145); Total Bilirubin 0.2 mg/dl (0.2-1.3); eGFR 42.35
[2024-03-19 07:38] LABS: Glucose - Point of Care 106 mg/dl (70-99)
[2024-03-19] MEDS: NOVOLOG FLEXPEN-LOW RESISTANCE SC ×2 (08:13→14:15)
[2024-03-19] MEDS: PLAVIX 75 MG PO (08:14)
[2024-03-19] MEDS: VISBIOME 1 CAP PO (08:14)
[2024-03-19] MEDS: FOLVITE 1 MG PO (08:14)
[2024-03-19] MEDS: COLACE 100 MG PO ×2 (08:14→20:38)
[2024-03-19] MEDS: LOW STRENGTH ASPIRIN 81 MG PO (08:14)
[2024-03-19] MEDS: SENOKOT 8.6 MG PO ×2 (08:14→20:39)
[2024-03-19] MEDS: IMDUR (EXTENDED RELEASE) 30 MG PO (08:14)
[2024-03-19] MEDS: MERREM 500 MG IV ×2 (08:17→20:46)
[2024-03-19] MEDS: STERILE WATER FOR INJECTION 10 ML IV ×2 (08:17→20:47)
[2024-03-19] MEDS: APRESOLINE 50 MG PO ×3 (08:18→20:38)
[2024-03-19] MEDS: COREG 12.5 MG PO ×2 (08:20→20:39)
[2024-03-19] MEDS: LASIX 40 MG PO (08:20)
--- NOTE | 2024-03-19 08:47 | W.PN.CD ---
Today's Communication / Plan
-
- Status-post chest tube yesterday--drain in place; management as per primary team/Pulmonary.
- Continue Lasix 40 mg PO daily.
- Cardiology will remain available on an as-needed basis (her primary outpatient [employer] is Dr. Iverson).
Impression / Plan
-
A/P: 78y F with PMH significant for CAD s/p CABG, CHB s/p PPM, HFrEF with recovered EF, osteomyelitis of sternum (Pseudomonas) and recurrent R pleural effusion who presents to ED complaining of increased SOB over the past few days, s/p
thoracentesis with plan for pleurodesis.
Recurrent pleural effusion
- s/p thoracentesis
- Status-post chest tube yesterday--drain in place; management as per primary team/Pulmonary.
Cardiomyopathy s/p ICD: acute on chronic HFpEF
- Previous ejection fraction 30%, now improved to 55-60% on echocardiogram this admission with mild to moderate MR and moderate TR.
- Further GDMT has been limited by renal insufficiency.
- Continue Lasix 40 mg PO daily.
CAD s/p recent CABG:
-Residual wound dehiscence.
-Patient previously had wound VAC follow-up with CT surgery
- on Abx
CHB
-PPM
Anemia.
- Management as per primary team.
Subjective:
No major events overnight. No cardiac complaints this a.m. Daughter (Roxanne) at bedside.
Physical Exam
Vital Signs/Labs
Vital Signs
Temp Pulse Resp BP Pulse Ox
97.6 F 73 18 152/80 99
03/19/24 08:16 03/19/24 08:20 03/19/24 08:16 03/19/24 08:20 03/19/24 08:16
03/18/24 03/19/24 03/20/24
06:59 06:59 06:59
Actual Weight 60.441 kg 61.49 kg
03/19/24 06:26
03/19/24 06:26
03/15/24
18:34
[id number] Pept 5590
Physical Exam
Constitutional: No acute distress and Comfortable
EENT: Anicteric
Cardiovascular: Rhythm & rate is regular, Systolic murmur absent, Pedal edema present (trace) and S1S2 is normal
Respiratory: Respiratory effort normal and Rhonchi Present (Scant bibasilar)
GI: Soft
Neuro/Psych: AO x 3
Other: Skin (Warm)
Data Reviewed
-
Date of Service: March 19, 2024
EKG: Tracing Personally Visualized and interpreted (Telemetry: Sinus rhythm)
Medical Tests (PFT, Pathology etc): Discussed with Patient and Discussed with Family (Daughter (Roxanne))
Labs: Labs Reviewed by me
--- NOTE | 2024-03-19 09:15 | W.PN.PUL3 ---
Today's Communication / Plan
-
Doing well post chest tube placement, output >800mL in chamber
Stable on RA, no new complaints
Repeat CXR this AM has near complete resolution
If stable imaging in AM with minimal output, can consider discontinuation of chest tube
Reviewed plans with patient
Assessment
-
78-year-old female with a past medical history of CAD s/p CABG x 4 (11/29/2023), recurrent pleural effusions (R>L), chronic HFrEF s/p ICD, history of complete heart block, hypertension, hyperlipidemia, DM type II, CKD, lung nodules, thyroid nodule,
history of prolonged QTc, and history of NSTEMI s/p coronary stents who presents with worsening shortness of breath. She was recently discharged from [facility]. She has had multiple thoracenteses since her CABG with her first and 12/15/2023, and
then again on 02/13/2024 and last done on 03/06/2024. She reports that she has been having ankle swelling for last several days as well as left arm swelling. Her Lasix dose was recently reduced from 80 mg BID to 40mg BID due to worsening renal
function while on the higher dosing. Currently, CXR shows moderate size right pleural effusion and she underwent IR thoracentesis on 03/16/2024 removing 950 cc of straw-colored exudative pleural fluid. She was admitted to telemetry for further
care and pulmonary service now consulted for additional management/recommendations.
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
pressure injury, history of constipation, lung nodules, thyroid nodule, right scoliosis, history of prolonged QTc, umbilical hernia, chronic anemia
Impression:
#Recurrent right-sided pleural effusion despite multiple thoracenteses now s/p thoracentesis on 03/16/2024 with 950 cc of straw-colored exudative pleural fluid removed - likely due to ADHF
#Shortness of breath due to above
#Acute on chronic HFpEF with moderate TR + mild�moderate MR
#Chronic anemia
#Increase eosinophil count (800 on 03/15/2024)
#Sternal wound with suspected osteomyelitis with wound culture growing monge-sensitive Pseudomonas aeruginosa
#CKD (baseline creatinine 1.3�1.4)
#History of NSTEMI s/p coronary stents
#History of complete heart block s/p PPM/ICD
#Hypertension
#Hyperlipidemia
#CAD s/p CABG x4 (11/29/2023)
Plan:
Stable on RA, no complaints
Sitting in chair
She is s/p thoracentesis on 03/16 in IR with 950 cc of straw-colored, exudative fluid which is monocyte predominant with residual small right-sided pleural effusion seen after procedure
Perhaps this is pseudo-exudative as she does take Lasix chronically
Repeat CXR (03/17) shows stable right-sided pleural effusion with no significant reaccumulation
Pleural fluid culture 03/16/24 negative; 02/13/24 cyto negative
s/p chest tube by IR 03/18/24, produced >800cc
CXR this AM showing near complete resolution
If chest x-ray remains clear tomorrow, can consider discontinuation
Continue IV lasix 40mg daily --> cardiology changed her to PO lasix starting tomorrow; trend sCr, monitor UOP and strict I/O
Can consider limited echo
Cardiology recs appreciated
Her absolute eosinophil count is elevated however she denies a history of asthma
Continue to trend; if patient becomes SOB with minimal reaccumulation of right-sided pleural effusion, then could consider starting systemic steroids with outpatient PFTs + FeNO
Currently she feels well with improved SOB --> hold off on steroids at this time
Maintain SpO2 >90-94% with supplemental O2 as needed, currently stable on RA
Incentive spirometer encouraged
Continue with meropenem given her sternal wound with suspected sternal osteomyelitis with wound culture growing Pseudomonas aeruginosa
Although CXR shows findings concerning for mild right upper lobe + right perihilar pneumonia, she has no clinical symptoms consistent with pneumonia
Continue with antibiotics as stated above and continue to monitor
- Replete electrolytes with K>4, Mg>2
- Maintain euglycemia with goal BG >100 and <180
- prn nebulized bronchodilators - not currently bronchospastic
- DVT ppx: SCDs; her Hb is stable --> would start HSQ
Pulmonary service will continue to follow along.
Data:
CXR 03/17/24- Stable small right pleural effusion with associated probable atelectasis
CXR 03/15/2024: Moderate right pleural effusion. Enlarged compared to prior CXR on 03/11/2024. Findings suggesting a mild right upper lobe and right perihilar pneumonia. Progressed in right upper lobe. Stable in the right perihilar region
CT Chest 02/17/24- 1. 1.5 cm soft tissue wound anterior to the xiphoid process. Moderate soft tissue edema anterior and posterior to the sternum which appears to have increased since 01/06/2024 consistent with soft tissue infection.
2. Incompletely healed midline sternotomy with sternal wires remaining in place. No CT evidence for wire fracture or sternal dehiscence. No CT evidence for interval change in appearance of the xiphoid process and inferior sternum since the prior
exam performed 01/06/2024.
3. Interval enlargement of a MODERATE RIGHT PLEURAL EFFUSION.
4. LARGE RIGHT LOWER LOBE AIRSPACE CONSOLIDATION (either right lower lobe pneumonia or atelectasis.)
5. New band of horizontal atelectasis adjacent to the right minor fissure.
6. Small left pleural effusion.
7. Mild cardiomegaly.
8. Recent CABG surgery.
9. Mild mediastinal lymphadenopathy.
10. 1.6 cm left lobe thyroid nodule.
11. Left-sided AICD in place.
-----
Total time spent today was 50 minutes for this encounter. Time includes reviewing laboratory test/imaging results, reviewing pertinent medical records, obtaining and reviewing medical history, performing an appropriate exam, ordering medications,
tests and procedures. Time also includes documentation of this encounter, coordinating patient care and communicating with other healthcare professionals. Total time does not include separately billed tests performed on this date of service.
Subjective Data
-
Date of Service:
Date of Service: March 19, 2024
Chief Complaint: Pulmonary Follow Up
Subjective:
Doing well, sitting in chair
No new complaints
Has produced >800mL in chamber
Objective Data
Data Reviewed
Vital Signs / I&O / Oxygen:
Vital Signs
Temp Pulse Resp BP Pulse Ox
97.6 F 73 18 152/80 99
03/19/24 08:16 03/19/24 08:20 03/19/24 08:16 03/19/24 08:20 03/19/24 08:16
Intake and Output
03/18/24 03/19/24 03/20/24
06:59 06:59 06:59
Intake Total 720 / 720 240 / 240
Output Total 320 / 320
Balance 720 / 720 -80 / -80
SaO2 99
Nasal Cannula flow liters per 2
minute
Physical Exam
General: Respiratory Distress (negative), Comfortable, Chills (negative) and Sweats (negative)
HEENT: Normocephalic, Anicteric and Moist Mucous Membranes
Cardiovascular: S1-S2, Regular Rhythm, Peripheral Edema (+1 lower extremity pitting edema bilaterally) and Other (Diminished cardiac sounds)
Respiratory: Wheeze (negative), Rhonchi (negative), Non-Labored Respirations, Chest Tube and Other (Diminished breath sounds at right base)
GI: Soft, Non Distended, Non Tender and Normal Bowel Sounds
Neurology: Awake, Alert, Oriented, No Motor Deficits and Tremors (negative)
Skin: Warm, Dry, Cyanosis (negative) and Jaundice (negative)
Labs/Micro/Reports
Lab Data
03/19/24 06:26
03/19/24 06:26
Microbiology
03/16/24 12:26 Pleural Fluid Body Fluid Culture - Preliminary
No Growth After 48 Hours
03/16/24 12:26 Pleural Fluid Gram Stain - Preliminary
--- NOTE | 2024-03-19 11:21 | PN.CDI ---
CDI
- -
CDI:
Physician Documentation Request
Admit Date: 03/15/24 21:53
Dear Doctor Rei/Resident ,
Please review the following and provide your response in the progress notes.
Clinical Indicators:
Pt admitted with recurrent pleural effusion/Acute on Chronic Diastolic CHF exacerbation
Documented per [facility] note 03/18, ' Patient admitted with...Sacral/coccyx stage 1 pressure injury. ...Protective silicone border foam applied to sacrum....'
Physician documentation of the type and location of wounds is required for compliant documentation. Based on the above clinical findings and your assessment, please provide the following in your progress note:
1. Location of the ulcer/wound, including laterality.
2. Type (etiology) of ulcer/wound:
- Pressure (decubitus) ulcer
- Non-pressure ulcer
- Other
Use of terms such as suspected, likely, concern for, or probable (associated with a specific diagnosis that is being evaluated, monitored, or treated as if it exists) are acceptable and can be coded in the inpatient setting, when documented at the
time of discharge.
Thank you,
Sandra Arana RN
CDI Specialist
[employer] [employer]
Please use your independent medical judgment in providing your response.
*Source: National Pressure Ulcer Advisory Panel (NPUAP)
[2024-03-19] MEDS: FEOSOL 325 MG PO (11:30)
[2024-03-19 11:50] LABS: Glucose - Point of Care 157 mg/dl (70-99)
--- NOTE | 2024-03-19 16:24 | W.PN.HOSP.TC ---
Addendum entered and electronically signed by Odell Minaya MD 03/19/24 23:32:
Attending Addendum-
I saw and evaluated the patient. I reviewed the resident�s note and agree with findings and plan as documented in the resident�s note. Sub: Complains of pain @ CT site. Seen with daughter present. denies SOB CP palps. Full 12 point ROS reviewed and
negative except as documented Exam: Vitals reviewed in chart GEN-NAD heart RRR chest: sternal incision CDI lungs decreased BS @ RLL CT in place bloody fluid LE 1+ b/l LE edema RUE PICC in place
Plan:
# Recurrent right pleural effusion
� 03/16- thoracentesis 950 cc. Exudative fluid
- CT placed 03/18 monitor output
- repat CXR near complete resolution
- possible DC CT soon
- appreciate pulm input
# Acute on chronic HFpEF exacerbation
- resolved
- recent EF 50-55%
- cont po lasix
- Follow I's and O's and daily weights
- cards on board
# Eosinophilia
� Absolute eosinophil count elevated
� Monitor
- check diff in am
# CKD stage IIIa
- Stable, creatinine @ baseline of 1.3
- Follow BMP
# Sternal osteomyelitis/Pseudomonas
� Stable/Afebrile
� Continue meropenem�> 03/30/24
- trend CBC daily
- wound care
# CAD
- s/p CABG 11/21
-Continue ASA, plavix, coreg, and rosuvastatin
- stable
# Anemia of chronic disease
� HB 7.9
- transfuse for HB < 7
- Continue iron supplements
- Compression device for DVT prophylaxis given bleeding issues noted during prior hospital stay
# Heart block
� PPM/AICD
# Benign hypertension
� Continue imdur and hydralazine
# IDDM
� 01/22 hemoglobin A1c 6.3
- hold home dose lantus 4u q hs for now
� cont SSI
DVT prophylaxis compression device
Full Code
Dispo- DC home with HC/VN per patient and family wishes when able
Time spent coordinating care, review of plan of care with resident, personally reviewed records in EMR, med rec, consults, notes, labs, radiology, d/w nursing pulm and daughter� 56 mins
Original Note:
Today's Communication/Plan
-
-Follow-up with interventional radiology
-Follow-up with pulmonology
-Keep her on the current dose of Lasix
Assessment / Plan
Assessment / Plan
Right pleural effusion
HFpEF:
-Interventional radiology did not perform pleurodesis yet because they want to drain all the pleural fluid, check x-ray, low output from tube they will consider tomorrow. 03/19
-Today's chest tube on 03/19 is draining blood, there is 320 mL of fluid overnight
-Cardiology started her on oral Lasix 40 mg p.o. 03/19
-Pulmonology states that repeat chest x-ray has near complete resolution, chest tube more than 800 mL output, possibly discontinue chest tube tomorrow if there is minimal output in the morning 03/19
-Her thoracocentesis on 03/16 shows 950 cc of straw-colored, exudative fluid which is monocyte predominant
-Repeat chest x-ray 03/17 shows right-sided pleural effusion with no significant reaccumulation
-Trend creatinine
Fall in elderly:
-Pain in the hips and buttocks from fall is gradually subsiding
-Rates pain as an 6 out of 10 in both the buttocks and hips
-Ordered tramadol 50 mg every 8 hours as needed
-Increase the dose of Tylenol to 1000 mg every 8 hours with a maximum daily dose of 3000 g as needed
Eosinophilia:
-Eosinophil count is 8.1
� Absolute eosinophil count elevated space at 0.8, consider a possible infectious disease consult
-No previous history of asthma, allergies, parasitic infections
� Trend eosinophil count
CKD stage IIIa
-Creatinine is 1.3 and near baseline
-Replete potassium and magnesium if necessary
-Trend
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
-WBC count is 9.7 and normal, patient is afebrile
-Sternal dressing changed today using Tegaderm daily
� Continue current meropenem dose till 03/30/24
Anemia of chronic disease
� Hemoglobin is around 7.9 and is baseline
-Continue to observe and if less than 7 then blood transfusion is necessary
Hypertension
� Continue home meds
Type 2 diabetes
- 01/22 hemoglobin A1c 6.3
- Well-controlled
- Continue home medications
Deconditioning
� PT OT
DVT prophylaxis compression device
Full Code
Anticipated Discharge: 24 - 48 hours
Subjective/Interval History
-
Date of Service: March 19, 2024
No acute overnight events. patient feels near her chest tube insertion site when she takes a deep breath. No nausea, vomiting, chest pain, shortness of breath, dyspnea, headache, syncope.
Still on meropenem until 03/30.
Chest tube is draining blood.
Objective Data
-
Labs:
Laboratory Results
03/19/24
06:26
WBC 9.5
Hgb 7.9 L
Hct 25.7 L
Plt Count 378
Sodium 144
Potassium 3.8
Chloride 104
Carbon Dioxide 30
BUN 41 H
Creatinine 1.3 H
Glucose 88
Calcium 8.6
Total Bilirubin 0.2
AST 21
ALT 16
Alkaline Phosphatase 62
Vital Signs:
Vital Signs
Temp Pulse Resp BP Pulse Ox
98 F 79 16 107/60 97
03/19/24 15:43 03/19/24 15:43 03/19/24 15:43 03/19/24 15:43 03/19/24 15:43
I&O
03/18/24 03/19/24 03/20/24
06:59 06:59 06:59
Intake Total 720 / 720 240 / 240
Output Total 320 / 320
Balance 720 / 720 -80 / -80
Review of Systems
-
History Source: Patient
Constitutional: Denies Fever or Night Sweats
Respiratory: Denies Cough or Trouble Breathing
Cardiac: Denies Chest Pain, Palpitations or Syncope
Abdomen/GI: Denies Abdominal Pain, Nausea, Vomiting, Diarrhea or Constipated
Physical Exam
-
General: Obese
Respiratory: Decreased Breath Sounds (Bilaterally)
Cardiac: Regular Rhythm and S1/S2
Musculoskeletal: Edema, Right Lower Extrem and Edema, Left Lower Extrem
Neuro: Awake, Alert, Oriented and AO x 3
Data Reviewed
-
Medical Tests (Nuc Med, Echo etc): Image personally visualized and interpreted and Discussed with Physician
Labs: Labs Reviewed by me and Discussed with Physician
[2024-03-19 16:30] LABS: Glucose - Point of Care 187 mg/dl (70-99)
[2024-03-19] MEDS: NOVOLOG FLEXPEN-LOW RESISTANCE 1 UNITS SC (16:34)
[2024-03-19] MEDS: CRESTOR 20 MG PO (20:38)
[2024-03-19] MEDS: NEURONTIN 300 MG PO (20:38)
[2024-03-19 21:56] LABS: Glucose - Point of Care 169 mg/dl (70-99)
[2024-03-20] VITALS (8 sets, daily range): BP systolic 130–161; BP diastolic 70–86; PULSE 85; O2SAT 96; BMI 25.8
[2024-03-20 08:00] LABS: Glucose - Point of Care 101 mg/dl (70-99)
[2024-03-20] MEDS: NOVOLOG FLEXPEN-LOW RESISTANCE SC ×2 (08:25→16:59)
[2024-03-20] MEDS: LASIX 40 MG PO (08:29)
[2024-03-20] MEDS: PLAVIX 75 MG PO (08:29)
[2024-03-20] MEDS: VISBIOME 1 CAP PO (08:29)
[2024-03-20] MEDS: COREG 12.5 MG PO ×2 (08:30→20:49)
[2024-03-20] MEDS: SENOKOT 8.6 MG PO ×2 (08:30→20:49)
[2024-03-20] MEDS: FOLVITE 1 MG PO (08:30)
[2024-03-20] MEDS: APRESOLINE 50 MG PO ×3 (08:30→20:49)
[2024-03-20] MEDS: COLACE 100 MG PO ×2 (08:30→20:49)
[2024-03-20] MEDS: IMDUR (EXTENDED RELEASE) 30 MG PO (08:30)
[2024-03-20] MEDS: LOW STRENGTH ASPIRIN 81 MG PO (08:30)
[2024-03-20] MEDS: MERREM 500 MG IV ×2 (08:44→20:53)
[2024-03-20] MEDS: STERILE WATER FOR INJECTION 10 ML IV ×2 (08:44→20:53)
--- NOTE | 2024-03-20 09:34 | W.PN.PUL3 ---
Today's Communication / Plan
-
Repeat CXR this AM showing more haziness compared to prior, could be inflammatory
To be safe, can observe another 24 hours to ensure output has not increased, repeat CXR in AM
Daughter inquired about chemical pleurodesis, we reviewed pros and cons, if not needed we can re-eval need
Observation another 24 hours
Assessment
-
78-year-old female with a past medical history of CAD s/p CABG x 4 (11/29/2023), recurrent pleural effusions (R>L), chronic HFrEF s/p ICD, history of complete heart block, hypertension, hyperlipidemia, DM type II, CKD, lung nodules, thyroid nodule,
history of prolonged QTc, and history of NSTEMI s/p coronary stents who presents with worsening shortness of breath. She was recently discharged from [facility]. She has had multiple thoracenteses since her CABG with her first and 12/15/2023, and
then again on 02/13/2024 and last done on 03/06/2024. She reports that she has been having ankle swelling for last several days as well as left arm swelling. Her Lasix dose was recently reduced from 80 mg BID to 40mg BID due to worsening renal
function while on the higher dosing. Currently, CXR shows moderate size right pleural effusion and she underwent IR thoracentesis on 03/16/2024 removing 950 cc of straw-colored exudative pleural fluid. She was admitted to telemetry for further
care and pulmonary service now consulted for additional management/recommendations.
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
pressure injury, history of constipation, lung nodules, thyroid nodule, right scoliosis, history of prolonged QTc, umbilical hernia, chronic anemia
Impression:
#Recurrent right-sided pleural effusion despite multiple thoracenteses now s/p thoracentesis on 03/16/2024 with 950 cc of straw-colored exudative pleural fluid removed - likely due to ADHF
#Shortness of breath due to above
#Acute on chronic HFpEF with moderate TR + mild�moderate MR
#Chronic anemia
#Increase eosinophil count (800 on 03/15/2024)
#Sternal wound with suspected osteomyelitis with wound culture growing monge-sensitive Pseudomonas aeruginosa
#CKD (baseline creatinine 1.3�1.4)
#History of NSTEMI s/p coronary stents
#History of complete heart block s/p PPM/ICD
#Hypertension
#Hyperlipidemia
#CAD s/p CABG x4 (11/29/2023)
Plan:
Stable on RA, no complaints
Sitting in chair
She is s/p thoracentesis on 03/16 in IR with 950 cc of straw-colored, exudative fluid which is monocyte predominant with residual small right-sided pleural effusion seen after procedure
Perhaps this is pseudo-exudative as she does take Lasix chronically
Repeat CXR (03/17) shows stable right-sided pleural effusion with no significant reaccumulation
Pleural fluid culture 03/16/24 negative; 02/13/24 cyto negative
s/p chest tube by IR 03/18/24, produced >800cc
CXR yesterday showing near complete resolution, repeat this AM showing more haziness, could be post inflammatory but reaccumulation is possible
If chest x-ray remains clear tomorrow, can consider discontinuation
Continue IV lasix 40mg daily --> cardiology changed her to PO lasix starting tomorrow; trend sCr, monitor UOP and strict I/O
Prior ECHO reviewed, stable findings
Cardiology recs appreciated
Her absolute eosinophil count is elevated however she denies a history of asthma
Continue to trend; if patient becomes SOB with minimal reaccumulation of right-sided pleural effusion, then could consider starting systemic steroids with outpatient PFTs + FeNO
Currently she feels well with improved SOB --> hold off on steroids at this time
Maintain SpO2 >90-94% with supplemental O2 as needed, currently stable on RA
Incentive spirometer encouraged
Continue with meropenem given her sternal wound with suspected sternal osteomyelitis with wound culture growing Pseudomonas aeruginosa
Although CXR shows findings concerning for mild right upper lobe + right perihilar pneumonia, she has no clinical symptoms consistent with pneumonia
Continue with antibiotics as stated above and continue to monitor
- Replete electrolytes with K>4, Mg>2
- Maintain euglycemia with goal BG >100 and <180
- prn nebulized bronchodilators - not currently bronchospastic
- DVT ppx: SCDs; her Hb is stable --> would start HSQ
Pulmonary service will continue to follow along.
Data:
CXR 03/17/24- Stable small right pleural effusion with associated probable atelectasis
CXR 03/15/2024: Moderate right pleural effusion. Enlarged compared to prior CXR on 03/11/2024. Findings suggesting a mild right upper lobe and right perihilar pneumonia. Progressed in right upper lobe. Stable in the right perihilar region
CT Chest 02/17/24- 1. 1.5 cm soft tissue wound anterior to the xiphoid process. Moderate soft tissue edema anterior and posterior to the sternum which appears to have increased since 01/06/2024 consistent with soft tissue infection.
2. Incompletely healed midline sternotomy with sternal wires remaining in place. No CT evidence for wire fracture or sternal dehiscence. No CT evidence for interval change in appearance of the xiphoid process and inferior sternum since the prior
exam performed 01/06/2024.
3. Interval enlargement of a MODERATE RIGHT PLEURAL EFFUSION.
4. LARGE RIGHT LOWER LOBE AIRSPACE CONSOLIDATION (either right lower lobe pneumonia or atelectasis.)
5. New band of horizontal atelectasis adjacent to the right minor fissure.
6. Small left pleural effusion.
7. Mild cardiomegaly.
8. Recent CABG surgery.
9. Mild mediastinal lymphadenopathy.
10. 1.6 cm left lobe thyroid nodule.
11. Left-sided AICD in place.
ECHO 02/13/24- Normal LV size and function with no regional wall motion abnormalities. LVEF is 55-60% by visual estimation. Moderate concentric LVH. Mild to moderate mitral regurgitation. Moderate tricuspid regurgitation. Estimated pulmonary
artery pressure of 42 mmHg, assuming a right atrial pressure of 3 mmHg. Compared to prior from November 23, 2023, on [id number] comparison overall LVEF is now normal, previously 30%, and there is now moderate tricuspid regurgitation from mild, and
mildly elevated estimated PASP from normal.
-----
Total time spent today was 50 minutes for this encounter. Time includes reviewing laboratory test/imaging results, reviewing pertinent medical records, obtaining and reviewing medical history, performing an appropriate exam, ordering medications,
tests and procedures. Time also includes documentation of this encounter, coordinating patient care and communicating with other healthcare professionals. Total time does not include separately billed tests performed on this date of service.
Subjective Data
-
Date of Service:
Date of Service: March 20, 2024
Chief Complaint: Pulmonary Follow Up
Subjective:
No new events ON, stable on RA
Only 50mL overnight noted on flowsheet
No new complaints
Objective Data
Data Reviewed
Vital Signs / I&O / Oxygen:
Vital Signs
Temp Pulse Resp BP Pulse Ox
98 F 71 16 161/86 96
03/20/24 07:36 03/20/24 08:30 03/20/24 07:36 03/20/24 08:30 03/20/24 07:36
Intake and Output
03/19/24 03/20/24 03/21/24
06:59 06:59 06:59
Intake Total 240 / 240 820 / 820
Output Total 320 / 320 250 / 250
Balance -80 / -80 570 / 570
SaO2 96
Nasal Cannula flow liters per 2
minute
Physical Exam
General: Respiratory Distress (negative), Comfortable, Chills (negative) and Sweats (negative)
HEENT: Normocephalic, Anicteric and Moist Mucous Membranes
Cardiovascular: S1-S2, Regular Rhythm, Peripheral Edema (+1 lower extremity pitting edema bilaterally) and Other (Diminished cardiac sounds)
Respiratory: Wheeze (negative), Rhonchi (negative), Non-Labored Respirations, Chest Tube and Other (Diminished breath sounds at right base)
GI: Soft, Non Distended, Non Tender and Normal Bowel Sounds
Neurology: Awake, Alert, Oriented, No Motor Deficits and Tremors (negative)
Skin: Warm, Dry, Cyanosis (negative) and Jaundice (negative)
Labs/Micro/Reports
Microbiology
03/16/24 12:26 Pleural Fluid Body Fluid Culture - Final
No Growth After 72 Hours
03/16/24 12:26 Pleural Fluid Gram Stain - Final
[2024-03-20 11:24] LABS: Glucose - Point of Care 166 mg/dl (70-99)
[2024-03-20 11:32] LABS: Hematocrit 27.1 % (37.0-47.0); Hemoglobin 8.9 g/dL (12.0-16.0); Mean Corp Hgb Conc. 32.8 g/dL (33.0-37.0); Mean Corpuscular Hgb 27.7 pg (27.0-31.0); Mean Corpuscular Volume 84.4 fL (81.0-99.0); Mean Platelet Volume 8.1 fL (7.4-10.4); Platelet Count 398 10^3/uL (130-400); Red Blood Cell Count 3.21 10^6/uL (4.20-5.40); Red Cell Dist. Width 16.6 % (11.5-14.5); White Blood Cell Count 10.6 10^3/uL (4.8-10.8)
[2024-03-20 11:52] LABS: Blood Urea Nitrogen 43 mg/dl (7-17); Calcium 8.7 mg/dl (8.4-10.2); Carbon Dioxide 32 mmol/L (22-30); Chloride 102 mmol/L (98-107); Estimated Creatinine Clearance 30 ml/min; Glucose 148 mg/dl (70-99); Potassium 3.7 mmol/L (3.5-5.1); Sodium 144 mmol/L (135-145); eGFR 46.62
[2024-03-20] MEDS: FEOSOL 325 MG PO (12:50)
[2024-03-20] MEDS: NOVOLOG FLEXPEN-LOW RESISTANCE 1 UNITS SC (12:50)
--- NOTE | 2024-03-20 15:18 | CM ---
Addendum entered by CODY Marmolejo 03/20/24 17:24:
No discharge today for patient. Sent referral to [facility] through [facility]. Will update Infusion company of any new orders/new meds. Patient already has PICC.
Original Note:
Reviewed chart, patient medically cleared for discharge. Updated Radha at [facility]. Will send resumption of care referral. Radha confirmed agency will be back out to see patient.
# for d/c instructions.
Plan: Case management will continue to follow and assist with discharge planning. Home with [facility].
[2024-03-20 16:42] LABS: Glucose - Point of Care 137 mg/dl (70-99)
--- NOTE | 2024-03-20 16:52 | W.PN.HOSP.TC ---
Addendum entered and electronically signed by Odell Minaya MD 03/20/24 23:06:
Attending Addendum-
I saw and evaluated the patient. I reviewed the resident�s note and agree with findings and plan as documented in the resident�s note. Sub: Patient appears frustrated. Pain @ CT site. Seen with daughter present. denies SOB CP palps. 'should i get
surgery? this keeps coming back!' Full 12 point ROS reviewed and negative except as documented Exam: Vitals reviewed in chart GEN-NAD heart RRR chest: sternal incision CDI lungs decreased BS @ RLL CT in place bloody fluid LE 1+ b/l LE edema RUE
PICC in place
Plan:
# Recurrent right pleural effusion
� 03/16- thoracentesis 950 cc. Exudative fluid
- CT placed 03/18 monitor output @ 200
- repeat CXR near complete resolution
- t/c pleurodesis
- observe x 24 hours
- appreciate pulm input
# Acute on chronic HFpEF exacerbation
- resolved
- recent EF 50-55%
- cont po lasix
- Follow I's and O's and daily weights
- cards on board
# Eosinophilia
� Absolute eosinophil count elevated
� Monitor
- check diff in am
# CKD stage IIIa
- Stable, creatinine @ baseline of 1.3
- Follow BMP
# Sternal osteomyelitis/Pseudomonas
� Stable/Afebrile
� Continue meropenem�> 03/30/24
- trend CBC daily
- wound care
# CAD
- s/p CABG 11/21
-Continue ASA, plavix, coreg, and rosuvastatin
- stable
# Anemia of chronic disease
- transfuse for HB < 7
- Continue iron supplements
- Compression device for DVT prophylaxis given bleeding issues noted during prior hospital stay
- trend h and h
# Heart block
� PPM/AICD
# Benign hypertension
� Continue imdur and hydralazine
# IDDM
� 01/22 hemoglobin A1c 6.3
- hold home dose lantus 4u q hs for now
� cont SSI
DVT prophylaxis compression device
Full Code
Dispo- DC home with HC/VN per patient and family wishes when able
Time spent coordinating care, review of plan of care with resident, personally reviewed records in EMR, med rec, consults, notes, labs, radiology, d/w nursing pulm and daughter� 57 mins
Original Note:
Today's Communication/Plan
-
Follow-up with pulmonology
Follow-up with interventional radiology
Assessment / Plan
Assessment / Plan
Right pleural effusion
HFpEF:
-Chest tube has drained 50 mL since 7 PM last night, dark brown hemorrhagic tinged fluid, 03/20
-Pulmonology consulted�considering the possibility of pulling a chest tube after an observation period of 24 hours. Pleurodesis is a possibility and not confirmed yet, will need to check on a day-to-day basis. 03/20
-Interventional radiology did not perform pleurodesis yet because they want to drain all the pleural fluid, check x-ray, low output from tube they will consider tomorrow. 03/19
-Today's chest tube on 03/19 is draining blood, there is 320 mL of fluid overnight
-Cardiology started her on oral Lasix 40 mg p.o. 03/19
-Her thoracocentesis on 03/16 shows 950 cc of straw-colored, exudative fluid which is monocyte predominant
-Trend creatinine
Fall in elderly:
-Pain in the hips and buttocks from fall is gradually subsiding
-Rates pain as an 6 out of 10 in both the buttocks and hips
-Ordered tramadol 50 mg every 8 hours as needed
-Increase the dose of Tylenol to 1000 mg every 8 hours with a maximum daily dose of 3000 g as needed
Eosinophilia:
-Most likely reactive
-Eosinophil count is 8.1
-No previous history of asthma, allergies, parasitic infections
� Trend eosinophil count
CKD stage IIIa
-Creatinine is 1.3 and near baseline
-Replete potassium and magnesium if necessary
-Trend
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
-WBC count is 9.7 and normal, patient is afebrile
-Sternal dressing changed today using Tegaderm daily
� Continue current meropenem dose till 03/30/24
Anemia of chronic disease
� Hemoglobin is around 7.9 and is baseline
-Continue to observe and if less than 7 then blood transfusion is necessary
Hypertension
� Continue home meds
Type 2 diabetes
- 01/22 hemoglobin A1c 6.3
- Well-controlled
- Continue home medications
Deconditioning
� PT OT
DVT prophylaxis compression device
Full Code
Anticipated Discharge: 24 - 48 hours
Subjective/Interval History
-
Date of Service: March 20, 2024
No acute overnight events.
Patient has a chest tube placed, draining 50 mL, draining dark brown hemorrhagic tinged fluid.
Objective Data
-
Labs:
Laboratory Results
03/20/24
11:27
WBC 10.6
Hgb 8.9 L
Hct 27.1 L
Plt Count 398
Sodium 144
Potassium 3.7
Chloride 102
Carbon Dioxide 32 H
BUN 43 H
Creatinine 1.2 H
Glucose 148 H
Calcium 8.7
Vital Signs:
Vital Signs
Temp Pulse Resp BP Pulse Ox
98 F 83 16 130/71 96
03/20/24 15:26 03/20/24 15:27 03/20/24 15:26 03/20/24 15:27 03/20/24 15:26
I&O
03/19/24 03/20/24 03/21/24
06:59 06:59 06:59
Intake Total 240 / 240 820 / 820
Output Total 320 / 320 250 / 250
Balance -80 / -80 570 / 570
Review of Systems
-
History Source: Patient
Constitutional: Reports Weight Loss; Denies Fever or Chills
Respiratory: Denies Cough or Trouble Breathing
Abdomen/GI: Denies Abdominal Pain, Nausea or Vomiting
Musculoskeletal: Denies Joint Pain
Hematologic / Lymphatic: Denies Bleeding
Physical Exam
-
General: Appears Chronically Ill
Respiratory: Decreased Breath Sounds (Bilaterally lower lobes)
Cardiac: Murmur
GI: Soft, Nontender and Nondistended
Skin: Warm and Dry
Neuro: Awake, Alert and Oriented
Data Reviewed
-
Medical Tests (Nuc Med, Echo etc): Image personally visualized and interpreted and Discussed with Physician
Labs: Labs Reviewed by me and Discussed with Physician
[2024-03-20] MEDS: CRESTOR 20 MG PO (20:59)
[2024-03-20] MEDS: NEURONTIN 300 MG PO (20:59)
[2024-03-20 21:25] LABS: Glucose - Point of Care 141 mg/dl (70-99)
[2024-03-21 03:40] VITALS: BP 155/74
[2024-03-21] MEDS: TYLENOL 1000 MG PO (04:07)
[2024-03-21 05:28] LABS: % Basophils 0.8 % (0-2); % Eosinophils 7.5 % (0-6); % Immature Granulocytes 0.3 % (0-0.5); % Lymphocytes 28.4 % (20.5-51.1); % Monocytes 7.7 % (1.7-9.3); % Neutrophils 55.3 % (42.2-75.2); Absolute Basophils 0.1 10^3/uL (0-0.2); Absolute Eosinophils 0.7 10^3/uL (0-0.7); Absolute Lymphocytes 2.6 10^3/uL (1.2-3.4); Absolute Monocytes 0.7 10^3/uL (0.1-0.6); Absolute Neutrophils 5.1 10^3/uL (1.4-6.5); Hematocrit 24.7 % (37.0-47.0); Hemoglobin 7.8 g/dL (12.0-16.0); Mean Corp Hgb Conc. 31.6 g/dL (33.0-37.0); Mean Corpuscular Hgb 27.3 pg (27.0-31.0); Mean Corpuscular Volume 86.4 fL (81.0-99.0); Mean Platelet Volume 8.2 fL (7.4-10.4); Nucleated Red Blood Cells % 0 %; Platelet Count 344 10^3/uL (130-400); Red Blood Cell Count 2.86 10^6/uL (4.20-5.40); Red Cell Dist. Width 17.2 % (11.5-14.5); White Blood Cell Count 9.3 10^3/uL (4.8-10.8)
[2024-03-21 05:50] LABS: Blood Urea Nitrogen 43 mg/dl (7-17); Calcium 8.5 mg/dl (8.4-10.2); Carbon Dioxide 29 mmol/L (22-30); Chloride 105 mmol/L (98-107); Estimated Creatinine Clearance 30 ml/min; Glucose 98 mg/dl (70-99); Potassium 3.7 mmol/L (3.5-5.1); Sodium 146 mmol/L (135-145); eGFR 46.62
[2024-03-21 06:00] VITALS: BMI 26.6
[2024-03-21 07:15] VITALS: BP 136/73
--- NOTE | 2024-03-21 07:39 | W.PN.HOSP.TC ---
Addendum entered and electronically signed by Odell Minaya MD 03/22/24 00:22:
Attending Addendum-
I saw and evaluated the patient. I reviewed the resident�s note and agree with findings and plan as documented in the resident�s note. Sub: Patient appears frustrated. Pain @ CT site. Seen with daughter present. 'Take the CT out and im going home'
denies SOB CP palps. Full 12 point ROS reviewed and negative except as documented Exam: Vitals reviewed in chart GEN-NAD heart RRR chest: sternal incision CDI lungs decreased BS @ RLL CT in place bloody fluid LE 1+ b/l LE edema RUE PICC in place
Plan:
# Recurrent right pleural effusion
� 03/16- thoracentesis 950 cc. Exudative fluid
- CT placed 03/18 monitor output @ 200
- repeat CXR near complete resolution
- refusing pleurodesis prefers OP observation
- appreciate pulm input ok to DC
- DC CT prior to DC
# Acute on chronic HFpEF exacerbation
- resolved
- recent EF 50-55%
- cont po lasix
- Follow I's and O's and daily weights
- cards on board
# Eosinophilia
� Absolute eosinophil count elevated
� Monitor
- check diff in am
# CKD stage IIIa
- Stable, creatinine @ baseline of 1.3
- Follow BMP
# Sternal osteomyelitis/Pseudomonas
� Stable/Afebrile
� Continue meropenem�> 03/30/24
- wound care
# CAD
- s/p CABG 11/21
-Continue ASA, plavix, coreg, and rosuvastatin
- stable
# Anemia of chronic disease
- transfuse for HB < 7
- Continue iron supplements
- Compression device for DVT prophylaxis given bleeding issues noted during prior hospital stay
# Heart block
� PPM/AICD
# Benign hypertension
� Continue imdur and hydralazine
# IDDM
� 01/22 hemoglobin A1c 6.3
- hold home dose lantus 4u q hs for now
� cont SSI
DVT prophylaxis compression device
Full Code
Dispo- DC home with HC/VN per patient and family wish
Time spent coordinating care, DC planning, review of DC plan of care with resident, transition of care, review of records, med rec/scripts sent electronically, consults, notes, d/w consultants, nursing, family/POA, and CM� 35 mins
Original Note:
Today's Communication/Plan
-
- discharge today
- continue on oral lasix
Assessment / Plan
Assessment / Plan
Patient needs resumption of care at home. She has had her lasix changed to 40 mg PO daily. She also needs her IV meropenem and is taking 500 mg BID via picc line and last dose is on 03/21/2024.
Right pleural effusion
HFpEF:
- Patient wants no furthur therapy against medical advice from pulmonology , so IR will pull chest tube and patient will go home, daughter also wants mother to go home 03/21
- Xray shows Minimal hazy opacity at the right lung base, likely representing a combination of minimal pleural fluid and airspace disease within the right lower lobe 03/21
-Chest tube has drained 100 mL since 7 PM - 7 am this morning last night, dark brown hemorrhagic tinged fluid, 03/21
-Pulmonology consulted�considering the possibility of pulling a chest tube after an observation period of 24 hours. Pleurodesis is a possibility and not confirmed yet, will need to check on a day-to-day basis. 03/20
-Cardiology started her on oral Lasix 40 mg p.o. 03/19
-Her thoracocentesis on 03/16 shows 950 cc of straw-colored, exudative fluid which is monocyte predominant
-Trend creatinine
Fall in elderly:
-Pain in the hips and buttocks from fall is gradually subsiding
-Rates pain as an 3 out of 10 in both the buttocks and hips
-Ordered tramadol 50 mg every 8 hours as needed
-Increase the dose of Tylenol to 1000 mg every 8 hours with a maximum daily dose of 3000 g as needed
Eosinophilia:
-Most likely reactive
-Eosinophil count is 7.5 trending down 03/21
-No previous history of asthma, allergies, parasitic infections
� Trend eosinophil count
CKD stage IIIa
-Creatinine is 1.2 and near baseline 03/21
-Replete potassium and magnesium if necessary
-Trend
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
-WBC count is 9.3 and normal, patient is afebrile
-Sternal dressing changed today using Tegaderm daily
� Continue current meropenem dose till 03/30/24
Anemia of chronic disease
� Hemoglobin is around 7.8 and is baseline
-Continue to observe and if less than 7 then blood transfusion is necessary
Hypertension
� Continue home meds
Type 2 diabetes
- 01/22 hemoglobin A1c 6.3
- Well-controlled
- Continue home medications
Deconditioning
� PT OT
DVT prophylaxis compression device
Full Code
Anticipated Discharge: 24 - 48 hours
Subjective/Interval History
-
Date of Service: March 21, 2024
No overnight events.
No acute medical problems
Objective Data
-
Labs:
Laboratory Results
03/21/24
05:16
WBC 9.3
Hgb 7.8 L
Hct 24.7 L
Plt Count 344
Sodium 146 H
Potassium 3.7
Chloride 105
Carbon Dioxide 29
BUN 43 H
Creatinine 1.2 H
Glucose 98
Calcium 8.5
Vital Signs:
Vital Signs
Temp Pulse Resp BP Pulse Ox
98.0 F 73 13 136/73 96
03/21/24 07:15 03/21/24 07:15 03/21/24 07:15 03/21/24 07:15 03/21/24 07:15
I&O
03/20/24 03/21/24 03/22/24
06:59 06:59 06:59
Intake Total 820 / 820
Output Total 250 / 250 45 / 45
Balance 570 / 570 -45 / -45
Review of Systems
-
History Source: Patient
Constitutional: Denies Fever, Fatigue or Chills
Respiratory: Denies Trouble Breathing
Cardiac: Denies Chest Pain, Palpitations or Syncope
Abdomen/GI: Denies Abdominal Pain
Physical Exam
-
General: Appears Chronically Ill
Respiratory: Crackles (right lower lung base) and Decreased Breath Sounds (left lower lung base)
Cardiac: Regular Rhythm and S1/S2
Skin: Warm and Dry
Neuro: Awake, Alert, Oriented and AO x 3
Data Reviewed
-
Medical Tests (Nuc Med, Echo etc): Image personally visualized and interpreted and Discussed with Physician
Labs: Labs Reviewed by me and Discussed with Physician
[2024-03-21 08:06] LABS: Glucose - Point of Care 109 mg/dl (70-99)
[2024-03-21] MEDS: NOVOLOG FLEXPEN-LOW RESISTANCE SC (08:51)
--- NOTE | 2024-03-21 09:12 | W.PN.PUL3 ---
Today's Communication / Plan
-
D/c chest tube after long discussion with patient and daughter
IR consult placed
Will follow up in 1-2 weeks for repeat imaging and further discussions
Our contact placed in summary
Discussed case with care team
Discharge planning today
Assessment
-
78-year-old female with a past medical history of CAD s/p CABG x 4 (11/29/2023), recurrent pleural effusions (R>L), chronic HFrEF s/p ICD, history of complete heart block, hypertension, hyperlipidemia, DM type II, CKD, lung nodules, thyroid nodule,
history of prolonged QTc, and history of NSTEMI s/p coronary stents who presents with worsening shortness of breath. She was recently discharged from [facility]. She has had multiple thoracenteses since her CABG with her first and 12/15/2023, and
then again on 02/13/2024 and last done on 03/06/2024. She reports that she has been having ankle swelling for last several days as well as left arm swelling. Her Lasix dose was recently reduced from 80 mg BID to 40mg BID due to worsening renal
function while on the higher dosing. Currently, CXR shows moderate size right pleural effusion and she underwent IR thoracentesis on 03/16/2024 removing 950 cc of straw-colored exudative pleural fluid. She was admitted to telemetry for further
care and pulmonary service now consulted for additional management/recommendations.
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
pressure injury, history of constipation, lung nodules, thyroid nodule, right scoliosis, history of prolonged QTc, umbilical hernia, chronic anemia
Impression:
#Recurrent right-sided pleural effusion despite multiple thoracenteses now s/p thoracentesis on 03/16/2024 with 950 cc of straw-colored exudative pleural fluid removed - likely due to ADHF
#Shortness of breath due to above
#Acute on chronic HFpEF with moderate TR + mild�moderate MR
#Chronic anemia
#Increase eosinophil count (800 on 03/15/2024)
#Sternal wound with suspected osteomyelitis with wound culture growing monge-sensitive Pseudomonas aeruginosa
#CKD (baseline creatinine 1.3�1.4)
#History of NSTEMI s/p coronary stents
#History of complete heart block s/p PPM/ICD
#Hypertension
#Hyperlipidemia
#CAD s/p CABG x4 (11/29/2023)
Plan:
Stable on RA, no complaints
Sitting in chair
She is s/p thoracentesis on 03/16 in IR with 950 cc of straw-colored, exudative fluid which is monocyte predominant with residual small right-sided pleural effusion seen after procedure
Perhaps this is pseudo-exudative as she does take Lasix chronically
Repeat CXR (03/17) shows stable right-sided pleural effusion with no significant reaccumulation
Pleural fluid culture 03/16/24 negative; 02/13/24 cyto negative
s/p chest tube by IR 03/18/24, produced >800cc
CXR yesterday showing near complete resolution, repeat this AM showing more haziness, could be post inflammatory but reaccumulation is possible
CXR this AM showing slight progression but patient does not wish to pursue lytic therapy or pleurodesis
She would like to discontinue her chest tube
We can arrange for FU in 1-2 weeks for reimaging and discussions
Continue IV lasix 40mg daily --> cardiology changed her to PO lasix starting tomorrow; trend sCr, monitor UOP and strict I/O
Prior ECHO reviewed, stable findings
Cardiology recs appreciated
Her absolute eosinophil count is elevated however she denies a history of asthma
Continue to trend; if patient becomes SOB with minimal reaccumulation of right-sided pleural effusion, then could consider starting systemic steroids with outpatient PFTs + FeNO
Currently she feels well with improved SOB --> hold off on steroids at this time
Maintain SpO2 >90-94% with supplemental O2 as needed, currently stable on RA
Incentive spirometer encouraged
Continue with meropenem given her sternal wound with suspected sternal osteomyelitis with wound culture growing Pseudomonas aeruginosa
Although CXR shows findings concerning for mild right upper lobe + right perihilar pneumonia, she has no clinical symptoms consistent with pneumonia
Continue with antibiotics as stated above and continue to monitor
- Replete electrolytes with K>4, Mg>2
- Maintain euglycemia with goal BG >100 and <180
- prn nebulized bronchodilators - not currently bronchospastic
- DVT ppx: SCDs; her Hb is stable --> would start HSQ
Updated patient and daughter at bedside, TT sent to care team
IR consult placed for tube removal
Discharge planning today
Data:
CXR 03/17/24- Stable small right pleural effusion with associated probable atelectasis
CXR 03/15/2024: Moderate right pleural effusion. Enlarged compared to prior CXR on 03/11/2024. Findings suggesting a mild right upper lobe and right perihilar pneumonia. Progressed in right upper lobe. Stable in the right perihilar region
CT Chest 02/17/24- 1. 1.5 cm soft tissue wound anterior to the xiphoid process. Moderate soft tissue edema anterior and posterior to the sternum which appears to have increased since 01/06/2024 consistent with soft tissue infection.
2. Incompletely healed midline sternotomy with sternal wires remaining in place. No CT evidence for wire fracture or sternal dehiscence. No CT evidence for interval change in appearance of the xiphoid process and inferior sternum since the prior
exam performed 01/06/2024.
3. Interval enlargement of a MODERATE RIGHT PLEURAL EFFUSION.
4. LARGE RIGHT LOWER LOBE AIRSPACE CONSOLIDATION (either right lower lobe pneumonia or atelectasis.)
5. New band of horizontal atelectasis adjacent to the right minor fissure.
6. Small left pleural effusion.
7. Mild cardiomegaly.
8. Recent CABG surgery.
9. Mild mediastinal lymphadenopathy.
10. 1.6 cm left lobe thyroid nodule.
11. Left-sided AICD in place.
ECHO 02/13/24- Normal LV size and function with no regional wall motion abnormalities. LVEF is 55-60% by visual estimation. Moderate concentric LVH. Mild to moderate mitral regurgitation. Moderate tricuspid regurgitation. Estimated pulmonary
artery pressure of 42 mmHg, assuming a right atrial pressure of 3 mmHg. Compared to prior from November 23, 2023, on [id number] comparison overall LVEF is now normal, previously 30%, and there is now moderate tricuspid regurgitation from mild, and
mildly elevated estimated PASP from normal.
-----
Total time spent today was 51 minutes for this encounter. Time includes reviewing laboratory test/imaging results, reviewing pertinent medical records, obtaining and reviewing medical history, performing an appropriate exam, ordering medications,
tests and procedures. Time also includes documentation of this encounter, coordinating patient care and communicating with other healthcare professionals. Total time does not include separately billed tests performed on this date of service.
Subjective Data
-
Date of Service:
Date of Service: March 21, 2024
Chief Complaint: Pulmonary Follow Up
Subjective:
no new events ON, remains stable on RA
wants to go home, spoke with daughter at bedside
Objective Data
Data Reviewed
Vital Signs / I&O / Oxygen:
Vital Signs
Temp Pulse Resp BP Pulse Ox
98.0 F 73 13 136/73 96
03/21/24 07:15 03/21/24 07:15 03/21/24 07:15 03/21/24 07:15 03/21/24 07:15
Intake and Output
03/20/24 03/21/24 03/22/24
06:59 06:59 06:59
Intake Total 820 / 820
Output Total 250 / 250 45 / 45
Balance 570 / 570 -45 / -45
SaO2 96
Nasal Cannula flow liters per 2
minute
Physical Exam
General: Respiratory Distress (negative), Comfortable, Chills (negative) and Sweats (negative)
HEENT: Normocephalic, Anicteric and Moist Mucous Membranes
Cardiovascular: S1-S2, Regular Rhythm, Peripheral Edema (+1 lower extremity pitting edema bilaterally) and Other (Diminished cardiac sounds)
Respiratory: Clear, Wheeze (negative), Rhonchi (negative), Non-Labored Respirations and Chest Tube
GI: Soft, Non Distended, Non Tender and Normal Bowel Sounds
Neurology: Awake, Alert, Oriented, No Motor Deficits and Tremors (negative)
Skin: Warm, Dry, Cyanosis (negative) and Jaundice (negative)
Labs/Micro/Reports
Lab Data
03/21/24 05:16
03/21/24 05:16
Microbiology
03/16/24 12:26 Pleural Fluid Body Fluid Culture - Final
No Growth After 72 Hours
03/16/24 12:26 Pleural Fluid Gram Stain - Final
--- NOTE | 2024-03-21 10:09 | CM ---
Addendum entered by CODY Marmolejo 03/21/24 15:30:
Spoke with resident for attending who confirmed that IV ABX will be the same, IV Meropenem 500 mg BID, 17 Doses left. End date 03/30/24.
Sent new referral for resumption of care over to [facility]. Called Radha from [facility] to update that patient is transferring home today. She stated that she will update Daina from [facility].
Met with patient's daughter and patient to update. Patient's daughter stated that she already spoke with [facility] who are aware of continuation of care.
Patient's daughter was advised that medication will be good through the .
Placed a call to Daina who stated to fax over doctor's new order for resumption
Recent ID note
Most recent labs
fax to [phone].
Asked resident for attending to write note for new order for resumption.
Will fax everything over to [facility].
Original Note:
Reviewed chart, provided update to Radha at [facility]. Daina from [facility] will be in today to see patient and determine if there are new meds that need to be ordered/changed.
Plan: Case management will continue to follow and assist with discharge planning. Home with IV ABX and [facility] nurses resumption of care.
[2024-03-21] MEDS: VISBIOME 1 CAP PO (10:55)
[2024-03-21] MEDS: LOW STRENGTH ASPIRIN 81 MG PO (10:56)
[2024-03-21] MEDS: SENOKOT 8.6 MG PO (10:56)
[2024-03-21] MEDS: COREG 12.5 MG PO (10:57)
[2024-03-21] MEDS: LASIX 40 MG PO (10:59)
[2024-03-21] MEDS: APRESOLINE 50 MG PO ×2 (11:00→15:07)
[2024-03-21] MEDS: FEOSOL 325 MG PO (11:01)
[2024-03-21] MEDS: FOLVITE 1 MG PO (11:01)
[2024-03-21] MEDS: COLACE 100 MG PO (11:02)
[2024-03-21] MEDS: PLAVIX 75 MG PO (11:04)
[2024-03-21] MEDS: IMDUR (EXTENDED RELEASE) 30 MG PO (11:05)
[2024-03-21] MEDS: STERILE WATER FOR INJECTION 10 ML IV (11:07)
[2024-03-21] MEDS: MERREM 500 MG IV (11:09)
--- NOTE | 2024-03-21 11:30 | PTCARENOTE ---
Right chest tube dressing falling off. Dressing changed.
[2024-03-21 11:51] LABS: Glucose - Point of Care 153 mg/dl (70-99)
[2024-03-21 11:59] VITALS: BP 164/90
[2024-03-21] MEDS: NOVOLOG FLEXPEN-LOW RESISTANCE 1 UNITS SC (12:31)
--- NOTE | 2024-03-21 13:45 | W.DCSUMMARY ---
Addendum entered and electronically signed by Odell Minaya MD 03/22/24 00:24:
Read, reviewed, and agree. See same day progress note for additional details. Patient and daughter requesting to DC CT and be DC'd home. Refusing to stay for observation post CT dc. To be followed up as OP closely. D/W Pulm.
Luis Minaya MD
Original Note:
Documented by User: Tyron Macias MD, Resident 03/21/24 15:26
Discharge Summary
Discharge Data
Date of Admission: 03/15/24
Date of Discharge: 03/21/24
-
Pending Results: No
Hospital Course
Patient is a 78-year-old female with a past medical history of coronary artery disease status post coronary bypass graft, heart failure with reduced ejection fraction with recovered ejection fraction, osteomyelitis of the sternum complicated by
Pseudomonas infection, insulin-dependent diabetes mellitus,, thyroid nodule, lung nodules, chronic kidney disease, complete heart block who came from home, her primary care physician is Dr. Choi. She presented with shortness of breath on
admission to the emergency room. Multiple recent stays at hospital most recently from 02/09 to 03/02 for decompensated heart failure then discharged to [facility] from 03/02-03/12. Ever since discharge she felt progressively worsening shortness of
breath swelling of left arm and bilateral leg she has had multiple thoracocentesis due to recurrent pleural effusion status post CABG x 4. Chest x-ray on 03/15/2024 showed a enlarged moderate right pleural effusion. On 03/16 pulmonary consulted
and thoracocentesis performed 950 cc of straw-colored exudative fluid which is monocyte predominant, repeat chest x-ray 03/17 shows right-sided pleural effusion with no significant reaccumulation. On 03/18 chest tube was placed and and has and has
drained more than 800 cc up until her discharge on .. On 03/21, repeat chest x-ray shows minimal hazy opacity at the right lung base representing a combination of minimal pleural fluid and airspace disease within right lower lobe, which
shows slight progression but. patient declined the option of pleurodesis/lytic therapy and further hospital stay for further observation AGAINST MEDICAL ADVICE and has decided to get the chest tube pulled out out on 03/21. She will follow-up with
pulmonology outpatient.
For her acute on chronic heart failure with preserved ejection fraction exacerbation, her Lasix was changed to 40 Mg p.o., trend serum creatinine, monitor weight, strict ins and outs, prior echo showed ejection fraction of 50 to 55%
For her sternal osteomyelitis which is complicated by Pseudomonas infection, she is to continue IV meropenem until 03/30/2024, CBC count was normal throughout duration of hospital stay on this admission and patient was afebrile, antibiotic during
hospital stay was placed through her PICC line, she will continue home infusion IV
For her CAD, she is continued on aspirin, Plavix, Coreg, rosuvastatin
For her benign hypertension, continue Imdur and hydralazine
For her insulin-dependent diabetes mellitus, continue on previous home medication
Discharge Plan
-
Patient Disposition: Home (Routine Discharge)
Discharge Diagnosis/Procedures: recurrent right pleural effusion, acute on chronic heart failure with preserved ejection fraction, sternal osteomyelitis, CKD stage 3a, anemia of chronic disease, coronary artery disease, heart block, benign
hypertension, Insulin dependent diabetes mellitus
Condition: Serious
Diet: Regular
Activity: As tolerated
Driving Restrictions: Not until seen by your Dr
Bathing Restrictions: None
Other Services: VN, PT and OT
Activity Restrictions/Additional Instructions:
Wound Care Instructions
Sternal wound-clean with saline, apply piece of Iodofoam gauze, cover with non woven 2x2 gauze and secure with Tegaderm, change daily.
Miconazole powder to affected skin folds bid. Tuck non woven gauze under breasts daily.
Sacral/coccyx-silicone border foam, change q 3 days and prn loosened dressing. If foam ineffective, apply barrier ointment BID instead.
Elevate heels off bed with pillow.
Air chair cushion.
Follow up with CT Surgeon.
Follow up at wound care center if needed, call for an appointment.
Referrals:
Dayna Basilio DO [Active] - in one to two weeks (PFTs, CXR)
Anne Marie Choi DO [Family Provider] -
Kingsley Iverson MD [Non-Admitting Privileges] - in one to two weeks
Prescriptions:
New
furosemide 40 mg Tablet
40 mg PO DAILY Qty: 30 0RF
Continued
aspirin 81 mg Tablet,Chewable
81 mg PO DAILY Qty: 30 0RF
insulin glargine [Lantus Solostar U-100 Insulin] 100 unit/mL (3 mL) Insulin Pen
4 unit SC HS
bisacodyl [Dulcolax (bisacodyl)] 5 mg Tablet,Delayed Release (Dr/Ec)
10 mg PO DAILYPRN PRN (Reason: constipation)
sennosides [senna] 8.6 mg Tablet
8.6 mg PO BID Qty: 30 0RF
acetaminophen [Tylenol] 325 mg Tablet
650 mg PO Q4HPRN PRN (Reason: mild pain) Qty: 30 0RF
clopidogrel 75 mg tablet
75 mg PO DAILY Qty: 30 0RF
ascorbic acid (vitamin C) [Vitamin C] 500 mg Tablet
500 mg PO DAILY@1200 Qty: 30 0RF
Visbiome 112.5 billion cell Capsule
1 cap PO DAILY Qty: 30 0RF
multivitamin with folic acid [Tab-A-Danae] 400 mcg tablet
1 tab PO DAILY Qty: 30 0RF
meropenem 500 mg Recon Soln
500 mg IV Q12H 19 Days Qty: 38 0RF
carvedilol 12.5 mg Tablet
12.5 mg PO BID 30 Days Qty: 60 0RF
isosorbide mononitrate 30 mg tablet extended release 24 hr
30 mg PO DAILY 30 Days Qty: 30 0RF
ferrous sulfate [FeroSul] 325 mg (65 mg iron) tablet
325 mg PO DAILY@1200 30 Days Qty: 30 0RF
docusate sodium [Colace] 100 mg Capsule
100 mg PO BID 30 Days Qty: 60 0RF
gabapentin 300 mg Capsule
300 mg PO HS 30 Days Qty: 30 0RF
folic acid 1 mg tablet
1 mg PO DAILY 30 Days Qty: 30 0RF
Changed
hydralazine 50 mg tablet
50 mg PO TID@0800,1400,2100 Qty: 30 0RF
rosuvastatin 20 mg tablet
20 mg PO HS Qty: 30 0RF
Discontinued
furosemide 20 mg Tablet
20 mg PO BID AT 0800,1600 30 Days Qty: 60 0RF
Discharge Orders:
Discharge Patient (As Directed); Ordered 03/21/24
Ordered By: Tyron Macias
Discharge Date and Time
Discharge Date/Time: 03/21/24 16:52
Print Language: MOHAWK

Documented by User: Odell Minaya MD 03/22/24 00:19
Discharge Summary
Discharge Data
Date of Admission: 03/15/24
Date of Discharge: 03/22/24
Discharge Plan
-
Patient Disposition: Home (Routine Discharge)
Discharge Diagnosis/Procedures: recurrent right pleural effusion, acute on chronic heart failure with preserved ejection fraction, sternal osteomyelitis, CKD stage 3a, anemia of chronic disease, coronary artery disease, heart block, benign
hypertension, Insulin dependent diabetes mellitus
Condition: Serious
Diet: Regular
Activity: As tolerated
Driving Restrictions: Not until seen by your Dr
Bathing Restrictions: None
Other Services: VN, PT and OT
Activity Restrictions/Additional Instructions:
Wound Care Instructions
Sternal wound-clean with saline, apply piece of Iodofoam gauze, cover with non woven 2x2 gauze and secure with Tegaderm, change daily.
Miconazole powder to affected skin folds bid. Tuck non woven gauze under breasts daily.
Sacral/coccyx-silicone border foam, change q 3 days and prn loosened dressing. If foam ineffective, apply barrier ointment BID instead.
Elevate heels off bed with pillow.
Air chair cushion.
Follow up with CT Surgeon.
Follow up at wound care center if needed, call for an appointment.
Referrals:
Dayna Basilio DO [Active] - in one to two weeks (PFTs, CXR)
Anne Marie Choi DO [Family Provider] -
Kingsley Iverson MD [Non-Admitting Privileges] - in one to two weeks
Prescriptions:
New
furosemide 40 mg Tablet
40 mg PO DAILY Qty: 30 0RF
Continued
aspirin 81 mg Tablet,Chewable
81 mg PO DAILY Qty: 30 0RF
insulin glargine [Lantus Solostar U-100 Insulin] 100 unit/mL (3 mL) Insulin Pen
4 unit SC HS
bisacodyl [Dulcolax (bisacodyl)] 5 mg Tablet,Delayed Release (Dr/Ec)
10 mg PO DAILYPRN PRN (Reason: constipation)
sennosides [senna] 8.6 mg Tablet
8.6 mg PO BID Qty: 30 0RF
acetaminophen [Tylenol] 325 mg Tablet
650 mg PO Q4HPRN PRN (Reason: mild pain) Qty: 30 0RF
clopidogrel 75 mg tablet
75 mg PO DAILY Qty: 30 0RF
ascorbic acid (vitamin C) [Vitamin C] 500 mg Tablet
500 mg PO DAILY@1200 Qty: 30 0RF
Visbiome 112.5 billion cell Capsule
1 cap PO DAILY Qty: 30 0RF
multivitamin with folic acid [Tab-A-Danae] 400 mcg tablet
1 tab PO DAILY Qty: 30 0RF
meropenem 500 mg Recon Soln
500 mg IV Q12H 19 Days Qty: 38 0RF
carvedilol 12.5 mg Tablet
12.5 mg PO BID 30 Days Qty: 60 0RF
isosorbide mononitrate 30 mg tablet extended release 24 hr
30 mg PO DAILY 30 Days Qty: 30 0RF
ferrous sulfate [FeroSul] 325 mg (65 mg iron) tablet
325 mg PO DAILY@1200 30 Days Qty: 30 0RF
docusate sodium [Colace] 100 mg Capsule
100 mg PO BID 30 Days Qty: 60 0RF
gabapentin 300 mg Capsule
300 mg PO HS 30 Days Qty: 30 0RF
folic acid 1 mg tablet
1 mg PO DAILY 30 Days Qty: 30 0RF
Changed
hydralazine 50 mg tablet
50 mg PO TID@0800,1400,2100 Qty: 30 0RF
rosuvastatin 20 mg tablet
20 mg PO HS Qty: 30 0RF
Discontinued
furosemide 20 mg Tablet
20 mg PO BID AT 0800,1600 30 Days Qty: 60 0RF
Discharge Orders:
Discharge Patient (As Directed); Ordered 03/21/24
Ordered By: Tyron Macias
Discharge Date and Time
Discharge Date/Time: 03/21/24 16:52
Print Language: MOHAWK
--- NOTE | 2024-03-21 14:05 | PN.IRAD.UPD ---
Update Note - [facility]
- -
Chest tube removed bedside per . Site cleaned and occlusive dressing applied.
--- NOTE | 2024-03-21 16:43 | PTCARENOTE ---
Pt had chest tube removed during shift. Dressing intact. Denies S.O.N, pain, discomfort to area. 97% on room air.
--- NOTE | 2024-03-26 18:38 | W.PN.UPDATE ---
Update Note
Progress Note Update
Sacral pressure injury:
- stage 1 pressure injury
- silicone border foam applied to sacrum
- patient instructed on pressure ulcer injury prevention methods
- healing well, continue to observe
== END 2024-03-21 16:52 | disposition home health service (06) | DRG 291 ==
LOC: 3 WEST ACU 21:53
PROVIDERS: Radiology Diagnostic Radiology; Radiology Vascular & Interventional Radiology; Registered Nurse; Student in an Organized Health Care Education/Training Program; ADMITTING PHYSICIAN Hospitalist; ATTENDING PHYSICIAN Family Medicine; CONSULT PHYSICIAN Internal Medicine Cardiovascular Disease; CONSULT PHYSICIAN Internal Medicine Critical Care Medicine; EMERGENCY PHYSICIAN Emergency Medicine; FAMILY PHYSICIAN Family Medicine
PROC: 0W993ZX Drainage of Right Pleural Cavity, Percutaneous Approach, Diagnostic (ICD-10-PCS; 2024-03-16)
PROC: 0W9930Z Drainage of Right Pleural Cavity with Drainage Device, Percutaneous Approach (ICD-10-PCS; 2024-03-18)
DX: I13.0 Hypertensive heart and chronic kidney disease with heart failure and stage 1 through stage 4 chronic kidney disease, or unspecified chronic kidney disease (principal); I50.33 Acute on chronic diastolic (congestive) heart failure; I44.2 Atrioventricular block, complete; M86.8X8 Other osteomyelitis, other site; J91.8 Pleural effusion in other conditions classified elsewhere; N18.31 Chronic kidney disease, stage 3a; Z79.4 Long term (current) use of insulin; E11.22 Type 2 diabetes mellitus with diabetic chronic kidney disease; I25.10 Atherosclerotic heart disease of native coronary artery without angina pectoris; Z95.1 Presence of aortocoronary bypass graft; B96.5 Pseudomonas (aeruginosa) (mallei) (pseudomallei) as the cause of diseases classified elsewhere; E11.69 Type 2 diabetes mellitus with other specified complication; K59.00 Constipation, unspecified; Z79.899 Other long term (current) drug therapy; K21.9 Gastro-esophageal reflux disease without esophagitis; Z95.5 Presence of coronary angioplasty implant and graft; Z95.810 Presence of automatic (implantable) cardiac defibrillator; Z79.82 Long term (current) use of aspirin; M41.9 Scoliosis, unspecified; I25.2 Old myocardial infarction; Z79.02 Long term (current) use of antithrombotics/antiplatelets; E78.00 Pure hypercholesterolemia, unspecified; D63.1 Anemia in chronic kidney disease; D72.10 Eosinophilia, unspecified; L89.151 Pressure ulcer of sacral region, stage 1
CPT/HCPCS: 88305; 32555; 32557; 71045; 71046; 80048; 80053; 82945; 82962; 83615; 83880; 83986; 84155; 84157; 84484; 85025; 85027; 86850; 86900; 86901; 87015; 87070; 87205; 88112; 89051; 97116; 97162; 97166; 99152; 99153; 99284; C1729; C1769

== ENCOUNTER → 2024-04-02 10:21 | Outpatient (REF) | payer MEDICARE, SELFPAY | LOC: RAD 10:21 | PROVIDERS: ATTENDING PHYSICIAN Nurse Practitioner; FAMILY PHYSICIAN Family Medicine; REFERRING PHYSICIAN Nurse Practitioner Adult Health | DX: J90 Pleural effusion, not elsewhere classified (principal) | CPT/HCPCS: 71046 ==

== ENCOUNTER → 2024-04-05 08:49 | Outpatient (REF) | payer MEDICARE, SELFPAY | LOC: WOUND 08:49 | PROVIDERS: ATTENDING PHYSICIAN Surgery; FAMILY PHYSICIAN Family Medicine | DX: T81.328A Disruption or dehiscence of closure of other specified internal operation (surgical) wound, initial encounter (principal); Y83.8 Other surgical procedures as the cause of abnormal reaction of the patient, or of later complication, without mention of misadventure at the time of the procedure; L97.212 Non-pressure chronic ulcer of right calf with fat layer exposed; I25.5 Ischemic cardiomyopathy; I50.22 Chronic systolic (congestive) heart failure; N18.32 Chronic kidney disease, stage 3b; I25.10 Atherosclerotic heart disease of native coronary artery without angina pectoris; Z79.4 Long term (current) use of insulin; E11.22 Type 2 diabetes mellitus with diabetic chronic kidney disease | CPT/HCPCS: 99213 ==

== ENCOUNTER → 2024-04-09 13:38 | Outpatient (REF) | payer MEDICARE, SELFPAY | LOC: RAD 13:38 | PROVIDERS: ATTENDING PHYSICIAN Nurse Practitioner Family; FAMILY PHYSICIAN Family Medicine | DX: J90 Pleural effusion, not elsewhere classified (principal) | CPT/HCPCS: 71046 ==

== ENCOUNTER → 2024-04-12 10:38 | Outpatient (REF) | payer MEDICARE, SELFPAY | LOC: WOUND 10:38 | PROVIDERS: ATTENDING PHYSICIAN Surgery; FAMILY PHYSICIAN Family Medicine | DX: T81.328A Disruption or dehiscence of closure of other specified internal operation (surgical) wound, initial encounter (principal); Y83.8 Other surgical procedures as the cause of abnormal reaction of the patient, or of later complication, without mention of misadventure at the time of the procedure; L97.212 Non-pressure chronic ulcer of right calf with fat layer exposed; I25.5 Ischemic cardiomyopathy; I50.22 Chronic systolic (congestive) heart failure; N18.32 Chronic kidney disease, stage 3b; I25.10 Atherosclerotic heart disease of native coronary artery without angina pectoris; Z79.4 Long term (current) use of insulin; E11.22 Type 2 diabetes mellitus with diabetic chronic kidney disease | CPT/HCPCS: 99212 ==

== ENCOUNTER → 2024-04-16 12:41 | Outpatient (REF) | payer MEDICARE, SELFPAY ==
[2024-04-16 13:18] VITALS: BP 158/71; BP_SYST 74
[2024-04-16 13:37] VITALS: BP 154/72; BP_SYST 69
[2024-04-16 14:01] VITALS: BP 154/72
[2024-04-16 14:20] LABS: Body Fluid Mononuclear 88.8 %; Body Fluid Polymorphonuclear 11.2 %; Body Fluid WBC 1407 /CUMM
[2024-04-16 14:22] LABS: Body Fluid Second Tech EF
[2024-04-16 14:27] LABS: Body Fluid pH 7.48
[2024-04-16 15:20] LABS: Body Fluid Glucose 155 mg/dl; Body Fluid LDH 104 U/L; Body Fluid Protein 4.8 g/dl
== END ==
LOC: RADI 12:41
PROVIDERS: ATTENDING PHYSICIAN Nurse Practitioner Family; FAMILY PHYSICIAN Family Medicine
DX: J90 Pleural effusion, not elsewhere classified (principal)
CPT/HCPCS: 88305; 32555; 71045; 82945; 83615; 83986; 84157; 87015; 87070; 87102; 87116; 87205; 87206; 88112; 88341; 88342; 89051

== ENCOUNTER → 2024-05-14 08:59 | Outpatient (REF) | payer MEDICARE, SELFPAY | LOC: WDC 08:59 | PROVIDERS: ATTENDING PHYSICIAN Family Medicine | DX: N63.20 Unspecified lump in the left breast, unspecified quadrant (principal); N64.4 Mastodynia; N63.23 Unspecified lump in the left breast, lower outer quadrant | CPT/HCPCS: 76642; 77062; 77066 ==

== ENCOUNTER → 2024-05-17 13:15 | Outpatient (REF) | payer MEDICARE, SELFPAY ==
[2024-05-17 13:45] VITALS: BP 148/78; BP_SYST 65
[2024-05-17 14:50] VITALS: BP 156/82
[2024-05-17 15:00] LABS: Body Fluid pH 7.51
[2024-05-17 15:22] LABS: Body Fluid Glucose 148 mg/dl; Body Fluid LDH 105 U/L; Body Fluid Protein 5.2 g/dl
[2024-05-17 15:25] LABS: Body Fluid Mononuclear 88.1 %; Body Fluid Polymorphonuclear 11.9 %; Body Fluid WBC 1409 /CUMM
[2024-05-17 15:28] LABS: Body Fluid Second Tech FB
== END ==
LOC: RADI 13:15
PROVIDERS: ATTENDING PHYSICIAN Nurse Practitioner Family; FAMILY PHYSICIAN Family Medicine
DX: J90 Pleural effusion, not elsewhere classified (principal)
CPT/HCPCS: 88305; 32555; 71045; 82945; 83615; 83986; 84157; 87015; 87070; 87102; 87116; 87205; 87206; 88112; 88341; 88342; 89051

== ENCOUNTER → 2024-05-29 10:17 | Outpatient (REF) | payer MEDICARE, SELFPAY ==
[2024-05-29 10:35] VITALS: BP 144/70; BP_SYST 77
== END ==
LOC: RADI 10:17
PROVIDERS: ATTENDING PHYSICIAN Internal Medicine; FAMILY PHYSICIAN Family Medicine
DX: J90 Pleural effusion, not elsewhere classified (principal)
CPT/HCPCS: 32555; 71045

== ENCOUNTER 2024-06-18 12:56 | Outpatient (RCR) | payer MEDICARE, SELFPAY | END 2024-06-18 23:59 | disposition home or self-care (01) | LOC: RPT 12:56 | PROVIDERS: ATTENDING PHYSICIAN Family Medicine | DX: M25.512 Pain in left shoulder (principal); Z73.6 Limitation of activities due to disability | CPT/HCPCS: 97110; 97140; 97163 ==

== ENCOUNTER → 2024-06-26 09:05 | Outpatient (REF) | payer MEDICARE, SELFPAY ==
[2024-06-26 09:10] VITALS: BP 175/81; BP_SYST 70
[2024-06-26 10:00] VITALS: BP 148/79
== END ==
LOC: RADI 09:05
PROVIDERS: ATTENDING PHYSICIAN Internal Medicine; FAMILY PHYSICIAN Family Medicine
DX: J90 Pleural effusion, not elsewhere classified (principal)
CPT/HCPCS: 32555; 71045

== ENCOUNTER → 2024-07-11 10:02 | Outpatient (REF) | payer MEDICARE, SELFPAY ==
[2024-07-11 10:20] VITALS: BP 121/86; BP_SYST 82
[2024-07-11 11:16] VITALS: BP 120/60
[2024-07-11 11:32] LABS: Body Fluid Mononuclear 85.2 %; Body Fluid Polymorphonuclear 14.8 %; Body Fluid WBC 1387 /CUMM
[2024-07-11 11:44] LABS: Body Fluid pH 7.52
[2024-07-11 11:49] LABS: Body Fluid Glucose 179 mg/dl; Body Fluid LDH 93 U/L; Body Fluid Protein 4.4 g/dl
[2024-07-11 12:17] LABS: Body Fluid Second Tech CMB
== END ==
LOC: RADI 10:02
PROVIDERS: ATTENDING PHYSICIAN Internal Medicine; FAMILY PHYSICIAN Family Medicine
DX: J90 Pleural effusion, not elsewhere classified (principal)
CPT/HCPCS: 88305; 32555; 71045; 82945; 83615; 83986; 84157; 87015; 87070; 87102; 87116; 87205; 87206; 88112; 89051

== ENCOUNTER 2024-07-17 17:46 | Outpatient (RCR) | payer MEDICARE, SELFPAY ==
[2024-07-01 10:00] LABS: Glucose - Point of Care 175 mg/dl (70-99)
[2024-07-01 10:47] LABS: Glucose - Point of Care 176 mg/dl (70-99)
[2024-07-03 17:33] LABS: Glucose - Point of Care 215 mg/dl (70-99)
[2024-07-03 18:16] LABS: Glucose - Point of Care 163 mg/dl (70-99)
[2024-07-05 17:26] LABS: Glucose - Point of Care 123 mg/dl (70-99)
[2024-07-05 18:00] LABS: Glucose - Point of Care 147 mg/dl (70-99)
[2024-07-12 17:32] LABS: Glucose - Point of Care 175 mg/dl (70-99)
[2024-07-12 18:10] LABS: Glucose - Point of Care 174 mg/dl (70-99)
[2024-07-15 17:30] LABS: Glucose - Point of Care 140 mg/dl (70-99)
[2024-07-15 18:14] LABS: Glucose - Point of Care 137 mg/dl (70-99)
[2024-07-17 17:34] LABS: Glucose - Point of Care 136 mg/dl (70-99)
[2024-07-17 18:11] LABS: Glucose - Point of Care 122 mg/dl (70-99)
== END 2024-07-17 23:59 | disposition home or self-care (01) ==
LOC: CRHB 17:46
PROVIDERS: ATTENDING PHYSICIAN Internal Medicine Cardiovascular Disease
DX: I50.22 Chronic systolic (congestive) heart failure (principal); Z95.1 Presence of aortocoronary bypass graft; I25.10 Atherosclerotic heart disease of native coronary artery without angina pectoris
CPT/HCPCS: 82962; G0422; G0423

== ENCOUNTER → 2024-07-23 12:51 | Outpatient (REF) | payer MEDICARE, SELFPAY ==
[2024-07-23 13:01] VITALS: BP 147/73; BP_SYST 73
[2024-07-23 13:26] VITALS: BP 140/71
== END ==
LOC: RADI 12:51
PROVIDERS: ATTENDING PHYSICIAN Internal Medicine
DX: J90 Pleural effusion, not elsewhere classified (principal)
CPT/HCPCS: 32555; 71045

== ENCOUNTER → 2024-07-30 07:44 | Outpatient (REF) | payer MEDICARE, SELFPAY ==
[2024-07-30 07:55] VITALS: BP 160/79; BP_SYST 75
[2024-07-30 08:57] VITALS: BP 152/77; BP_SYST 72
[2024-07-30 09:21] VITALS: BP 152/77
== END ==
LOC: RADI 07:44
PROVIDERS: ATTENDING PHYSICIAN Internal Medicine
DX: J90 Pleural effusion, not elsewhere classified (principal)
CPT/HCPCS: 32555; 71045

== ENCOUNTER → 2024-08-06 07:03 | Outpatient (REF) | payer MEDICARE, SELFPAY ==
[2024-08-06] VITALS (11 sets, daily range): BP systolic 72–138; BP diastolic 69–86
[2024-08-06] MEDS: ANCEF 10 IV (07:58)
--- NOTE | 2024-08-06 09:22 | PTCARENOTE ---
Pt. returned to [facility] recovery area post right pleural asept placement. Flumazenil 0.2mg IV given at 0901 in procedure room when patient would not wake up. Pt. awake within 3 mins of giving flumazenil, now awake, alert and oriented X3 and denies any
pain at procedure site. Observing closely.
--- NOTE | 2024-08-06 10:28 | PN.IRAD.UPD ---
Update Note - [facility]
- -
Asept care/drainage teaching done with patient and daughter at bedside. 4 Asept kits were given at discharge. 850 ml of bloody fluid drained.
[2024-08-07 07:25] LABS: Glucose - Point of Care 140 mg/dl (70-99)
== END ==
LOC: RADI 07:03
PROVIDERS: ATTENDING PHYSICIAN Internal Medicine; FAMILY PHYSICIAN Family Medicine
DX: J90 Pleural effusion, not elsewhere classified (principal)
CPT/HCPCS: 32550; 75989; 82962; 99152; 99153; C1729; C1769

== ENCOUNTER → 2024-09-02 13:30 | Outpatient (REF) | payer MEDICARE, SELFPAY ==
[2024-09-02 12:47] LABS: % Basophils 0.3 % (0-2); % Eosinophils 4.5 % (0-6); % Immature Granulocytes 0.2 % (0-0.5); % Lymphocytes 20.9 % (20.5-51.1); % Monocytes 4.9 % (1.7-9.3); % Neutrophils 69.2 % (42.2-75.2); Absolute Eosinophils 0.5 10^3/uL (0-0.7); Absolute Lymphocytes 2.3 10^3/uL (1.2-3.4); Absolute Monocytes 0.5 10^3/uL (0.1-0.6); Absolute Neutrophils 7.6 10^3/uL (1.4-6.5); Hematocrit 31.7 % (37.0-47.0); Hemoglobin 9.7 g/dL (12.0-16.0); Mean Corp Hgb Conc. 30.6 g/dL (33.0-37.0); Mean Corpuscular Hgb 25.4 pg (27.0-31.0); Platelet Count 342 10^3/uL (130-400); Red Blood Cell Count 3.82 10^6/uL (4.20-5.40); Red Cell Dist. Width 17.9 % (11.5-14.5)
[2024-09-02 14:17] LABS: Nucleated Red Blood Cells % 0 %; Reticulocyte Count 1.6 % (0.4-2.8)
[2024-09-05 04:13] LABS: Erythropoietin (EPO) 28 mU/mL (4-27)
== END ==
LOC: OIDL 13:30
PROVIDERS: ATTENDING PHYSICIAN Nurse Practitioner Primary Care
DX: D50.8 Other iron deficiency anemias (principal)
CPT/HCPCS: 82668; 85025; 85045

== ENCOUNTER → 2024-09-26 13:35 | Outpatient (REF) | payer MEDICARE, SELFPAY | LOC: MRI 3T 13:35 | PROVIDERS: ATTENDING PHYSICIAN Orthopaedic Surgery Hand Surgery; FAMILY PHYSICIAN Family Medicine | DX: M54.6 Pain in thoracic spine (principal) | CPT/HCPCS: 72146; 76014; 76015 ==

== ENCOUNTER → 2025-03-22 08:32 | Outpatient (REF) | payer MEDICARE, SELFPAY | LOC: RAD 08:32 | PROVIDERS: ATTENDING PHYSICIAN Internal Medicine; FAMILY PHYSICIAN Family Medicine; REFERRING PHYSICIAN Internal Medicine Infectious Disease | DX: J90 Pleural effusion, not elsewhere classified (principal) | CPT/HCPCS: 71046 ==